=== PATIENT | female | born 1975 | race Caucasian/White ===

== ENCOUNTER 2020-04-23 13:51 | Outpatient (REF) | payer OTHER, SELFPAY | END 2020-04-23 13:52 | disposition home or self-care (01) | LOC: HO.LAB 13:51 | PROVIDERS: Visit Provider Internal Medicine | DX: Z20.828 Contact with and (suspected) exposure to other viral communicable diseases (principal) | CPT/HCPCS: 87635 ==

== ENCOUNTER 2020-04-28 10:03 | Emergency (ER) | payer OTHER, SELFPAY ==
--- NOTE | 2020-04-28 | XR_ITS ---
EXAMINATION: XR CHEST CLINICAL INFORMATION: Evaluate for pneumonia COMPARISON: None TECHNIQUE: Frontal view of the chest was obtained. FINDINGS: Normal symmetric lung volumes. Mild diffuse prominence of the bronchovascular markings. No pleural effusion. No pneumothorax. Cardiomediastinal silhouette and pulmonary vascularity are within normal limits. No acute osseous abnormalities. XR/XR chest 1V IMPRESSION: No focal consolidation. Mild diffuse prominence of the bronchovascular markings, possibly accentuated by portable technique. Recommend departmental radiographs.
[2020-04-28 10:24] VITALS: BP 114/80; PULSE 99; RESP 17; TEMP 37.1; O2SAT 94; BMI 31.5
--- NOTE | 2020-04-28 10:58 | ED_ITS ---
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 Negative COVID test 04/23. Partner is COVID +. MD elicited complaint: fever and cough Onset (ago): day(s) Consistency: intermittent Severity: mild Able to tolerate fluids by mouth: Yes Exacerbating factors: nothing Relieving factors: nothing Context: sick contacts Associated symptoms: fever, chills, myalgias, headache and cough Treatments prior to arrival: none Related Data Previous Rx's Medication Instructions Recorded acetaminophen 650 mg PO Q6H PRN #20 cap 04/28/20 ibuprofen 600 mg PO Q8H PRN #20 tab 04/28/20 Allergies Allergy/AdvReac Type Severity Reaction Status Date / Time No Known Allergies Allergy Verified 04/28/20 10:27 [No Known Allergies*] Review of Systems Constitutional: Constitutional: Reports no additional constitutional complaints, Reports body ache(s), Reports chills, Reports fatigue, Reports headache(s), Reports malaise and Denies weakness Eyes: Eyes: Reports no additional eye complaints and Denies change in vision ENT: Reports system reviewed and no additional complaints, except as documented, Denies dizziness, Denies otalgia, Reports headache(s), Denies nasal discharge, Denies neck pain and Denies sore throat Cardiovascular: Cardiovascular: Reports no additional cardiovascular complaints, Denies chest pain, Denies leg edema and Denies dyspnea Respiratory: Respiratory: Reports no additional respiratory complaints, Reports cough and Denies dyspnea Gastrointestinal: Gastrointestinal: Reports no additional gastrointestinal complaints, Denies abdominal pain, Denies diarrhea, Denies nausea and Denies vomiting Genitourinary: Genitourinary: Reports no additional female genitourinary complaints, Denies urinary incontinence, Denies urinary hesitancy and Denies urinary urgency Musculoskeletal: Musculoskeletal: Reports no additional musculoskeletal complaints, Denies back pain, Reports myalgias, Denies arthralgias, Denies joint swelling, Denies neck pain, Denies numbness and Denies tingling Integumentary/Breasts: Skin/Breast: Reports system reviewed and no additional complaints, except as docu and Denies rash Neurologic: Reports system reviewed and no additional complaints, except as documented, Denies Abnormal speech present, Denies dizziness, Reports headache(s), Denies numbness, Denies tingling and Denies weakness Endocrine: Endocrine: Reports fatigue PMF Past Medical History Attestation statement: The following information was validated with the patient. Source: obtained from family and nursing notes reviewed Social History Social History Alcohol intake: current Alcohol intake frequency: holidays/special occasions only Smoking Status: Current some day smoker Use of substances other than those prescribed or required for medical reasons: No Advance Directives: No Advance Directives Information Provided: No Physical Exam Vital Signs: Vital Signs: Vital Signs Temp Pulse Resp BP Pulse Ox 04/28/20 10:24 98.7 F 99 17 114/80 94 Body Mass Index 31.5 Const: General: cooperative, healthy appearing, comfortable and no acute distress Orientation/consciousness: patient oriented x3 Limitations: no limitations HENMT: Head: Yes normal to inspection Ears: hearing grossly normal bilaterally General nose exam: Normal external nose present Face and sinus: Yes normal facial exam Mouth: Normal oral and palatal mucosa present Throat: Yes posterior oropharynx normal Eyes: General: appearance normal, both eyes and all related structures Pupils: Equal, round and reactive pupils present Neck: Neck: Yes normal visual inspection, Yes full ROM, Yes no lymphadenopathy and Yes no meningeal signs Chest: Chest palpation & inspection: normal inspection of the chest Resp: Effort & Inspection: normal respiratory effort Auscultation: clear to auscultation bilaterally Cardio: Rate: regular rate Rhythm: regular rhythm Peripheral pulses: Peripheral pulses 2+ throughout GI: Inspection: Yes normal to inspection Palpation (GI): Soft to palpation and nontender Auscultation: normal bowel sounds Back/Spine/Pelvis: Thoracic/Lumbar Spine: thoracic and lumbar spine normal to inspection Skin: General skin exam: no rashes or lesions noted Neuro: General: patient oriented x3, no meningeal signs, no focal motor deficits and normal sensation to monofilament Cranial nerves: Yes Equal, round and reactive pupils present Cognition (Neuro): normal cognition Speech: No Abnormal speech present Gait exam (Neuro): Normal gait present Motor exam (neuro): 5/5 motor strength present throughout Extrem: General: Yes normal to inspection Course Course Course Narrative: Cough, subjective fevers, OSORIO, malaise x several days with COVID exposure but negative test herself. Will check CXR, repeat COVID testing. 1140-CXR negative. COVID testing pending. Well appearing, with stable vital signs. reviewed worrisome signs and symptoms and when to return to the emergency department. Comfortable discharge home. MDM - URI/Sore Throat Imaging Data Chest x-ray: Attestation: I personally reviewed and interpreted this imaging study as follows: Radiologist's impression: EXAMINATION: XR CHEST CLINICAL INFORMATION: Evaluate for pneumonia COMPARISON: None TECHNIQUE: Frontal view of the chest was obtained. FINDINGS: Normal symmetric lung volumes. Mild diffuse prominence of the bronchovascular markings. No pleural effusion. No pneumothorax. Cardiomediastinal silhouette and pulmonary vascularity are within normal limits. No acute osseous abnormalities. XR/XR chest 1V IMPRESSION: No focal consolidation. Mild diffuse prominence of the bronchovascular markings, possibly accentuated by portable technique. Recommend departmental radiographs. Discharge Plan Discharge Clinical Impression: Viral infection Patient Disposition: Home, Self-Care Instructions: Viral Syndrome (ED) Additional Instructions: We have tested you today for COVID 19. Test results take 1-2 days and we will call you with the results negative or positive. Take tylenol or motrin if able as needed for pain or fever. Stay well hydrated with fluids like water, gatorade and/or powerade. Wash hands at home. If living with others try to self isolate if possible. If unable wear a mask around others in your home and wash hands frequently. If COVID test is positive you will need to self isolate for a total of 10 days and be symptoms free for at least 24hrs. You may return to work sooner if testing is negative and all symptoms resolved >72 hours. You should return to the emergency department for severe shortness of breath, chest pain or fever which does not respond to both tylenol and motrin at home. Your chest x-ray today looks like there is no signs of pneumonia. Prescriptions: New acetaminophen 325 mg capsule 650 mg PO Q6H PRN (Reason: fever or pain) Qty: 20 RF: 0 ibuprofen 600 mg tablet 600 mg PO Q8H PRN (Reason: fever or pain) Qty: 20 RF: 0 Referrals: Po,Nolberto Boykin MD [Primary Care Provider] - 2 days Stand Alone Forms: Work/School Release Interventions: ED Discharge Assessment Last Done: 04/28/20 12:41 Discharge Date/Time: 04/28/20 12:20
== END 2020-04-28 12:20 | disposition home or self-care (01) ==
PROVIDERS: Nurse Practitioner Family; Emergency Provider Emergency Medicine; PCP Internal Medicine
DX: B34.9 Viral infection, unspecified (principal); R50.9 Fever, unspecified; R05 Cough; F17.200 Nicotine dependence, unspecified, uncomplicated; Z71.6 Tobacco abuse counseling; Z20.828 Contact with and (suspected) exposure to other viral communicable diseases
CPT/HCPCS: 71045; 99283; 99284; U0003

== ENCOUNTER 2020-05-22 15:37 | Outpatient (REF) | payer OTHER, SELFPAY | END 2020-05-22 15:38 | disposition home or self-care (01) | LOC: HO.LAB 15:37 | PROVIDERS: PCP Internal Medicine; Visit Provider Internal Medicine | DX: Z20.828 Contact with and (suspected) exposure to other viral communicable diseases (principal) | CPT/HCPCS: C9803; U0003 ==

== ENCOUNTER → 2020-07-04 10:24 | Outpatient (BNVA) | payer OTHER, SELFPAY | PROVIDERS: PCP Internal Medicine; Visit Provider Internal Medicine Gastroenterology | DX: Z76.89 Persons encountering health services in other specified circumstances (principal) ==

== ENCOUNTER 2020-09-11 11:01 | Outpatient (REF) | payer OTHER, SELFPAY ==
--- NOTE | ~2020-09-11 | MM_ITS ---
EXAMINATION: MM SCREENING DIGITAL BREAST TOMOSYNTHESIS, BILATERAL CLINICAL INFORMATION: Screening. Asymptomatic. The lifetime risk of breast cancer based on the Tyrer-Cuzick Model is 7%. COMPARISON: Mammography: 09/06/2019, 08/26/2017 TECHNIQUE: Digital breast tomosynthesis is performed in both the craniocaudal and mediolateral oblique views along with computer-aided detection (CAD). Synthesized 2D images are generated from the tomosynthesis. FINDINGS: There are scattered areas of fibroglandular density (ACR BI-RADS breast composition Category b). There are no significant masses, abnormal calcifications, or other abnormalities. Parenchymal pattern is similar to prior studies. Axillary nodes are stable. Skin contours are smooth. No significant changes. MM/MM tomosynthesis screening BI IMPRESSION: No mammographic evidence of malignancy. ASSESSMENT: BI-RADS 1: Negative RECOMMENDATION: Routine annual mammography screening. This patient's information was entered into a reminder system with a target due date for their next mammogram.
== END 2020-09-11 11:02 | disposition home or self-care (01) ==
LOC: HO.MAMMO 11:01
PROVIDERS: PCP Internal Medicine; Visit Provider Internal Medicine
DX: Z12.31 Encounter for screening mammogram for malignant neoplasm of breast (principal)
CPT/HCPCS: 77063; 77067

== ENCOUNTER → 2020-10-31 09:40 | Outpatient (BNVA) | payer OTHER, SELFPAY | PROVIDERS: PCP Internal Medicine; Referring Provider Internal Medicine; Visit Provider Internal Medicine Gastroenterology | DX: Z12.11 Encounter for screening for malignant neoplasm of colon (principal); R10.84 Generalized abdominal pain | CPT/HCPCS: 99212 ==

== ENCOUNTER → 2021-02-06 09:20 | Outpatient (BNVA) | payer OTHER, SELFPAY | PROVIDERS: PCP Internal Medicine; Visit Provider Internal Medicine Gastroenterology ==

== ENCOUNTER 2021-07-25 10:05 | Outpatient (REF) | payer OTHER, SELFPAY ==
[2021-07-25 10:52] LABS: Immature Retic Fraction 6.1 % (3.0-15.9); Retic HGB Equivalent 29.5 pg (30.0-35.0); Reticulocyte Percent 0.8 % (0.5-1.8); Reticulocytes Absolute 0.036 X10*6/uL (0.026-0.095)
[2021-07-25 11:24] LABS: C Reactive Protein 0.99 mg/dL (< or = 0.50); Cholesterol 129 mg/dL; HDL Cholesterol 29 mg/dL; Iron 42 mcg/dL (30-160); LDL Cholesterol Calculated 84 mg/dl; Lipase 40 U/L (8-78); Percent Iron Saturation 17 % (15-50); Total Iron Binding Capacity 245 mcg/dL (228-428); Triglycerides 81 mg/dL; Unsaturated Iron Binding 203 ug/dL
[2021-07-25 11:30] LABS: Erythrocyte Sedimentation Rate 83 MM/HR (0-20)
[2021-07-25 11:31] LABS: Appearance Urine CLEAR; Color Urine YELLOW; Glucose Urine UA NEG (NEG); Leukocyte Esterase Urine NEG (NEG); Nitrite Urine NEG (NEG); PH 5.5 (5.0-8.0); Specific Gravity - Urine >= 1.030 (1.005-1.025); Urine Blood 3+ (NEG); Urine Ketones NEG (NEG); Urine Protein 1+ MG/DL (NEG-TRACE)
[2021-07-25 11:37] LABS: Ferritin 150 ng/mL (10-250); Free T4 (Free Thyroxine) 0.91 ng/dL (0.71-1.85); Vitamin D 25-OH Total 18.5 ng/mL (>30)
[2021-07-25 11:38] LABS: Thyroid Stimulating Hormone 1.24 uIU/mL (0.32-4.0)
[2021-07-25 11:51] LABS: Folate 12.8 ng/mL (> or = 4.0); Vitamin B12 366 pg/mL (200-900)
[2021-07-25 11:53] LABS: Amorphous Sediment Urine TRACE /LPF; Mucus Urine 2+ /LPF; Squamous Epithelial Cell Urine 2+ /LPF; WBC Urine 0-2 /HPF (0-4)
[2021-08-01 10:40] LABS: Calprotectin, Fecal 524 mcg/g
== END 2021-07-25 10:06 | disposition home or self-care (01) ==
LOC: HO.LAB 10:05
PROVIDERS: Absent Provider Internal Medicine; PCP Internal Medicine; Visit Provider Internal Medicine Gastroenterology
DX: R10.84 Generalized abdominal pain (principal); E66.9 Obesity, unspecified; E78.00 Pure hypercholesterolemia, unspecified
CPT/HCPCS: 36415; 80061; 81001; 82306; 82607; 82728; 82746; 83540; 83690; 83993; 84439; 84443; 85045; 85652; 86140

== ENCOUNTER 2021-07-28 10:47 | Outpatient (REF) | payer OTHER, SELFPAY | END 2021-07-28 10:48 | disposition home or self-care (01) | LOC: HO.LNP 10:47 | PROVIDERS: Visit Provider Internal Medicine Gastroenterology | DX: Z13.89 Encounter for screening for other disorder (principal) ==

== ENCOUNTER 2021-07-28 11:31 | Emergency (ER) | payer OTHER, SELFPAY ==
[2021-07-28 11:50] VITALS: BP 158/87; PULSE 120; RESP 20; TEMP 36.9; O2SAT 100; BMI 28.7
[2021-07-28] MEDS: Acetaminophen 325 MG TABLET 650 MG PO (11:54)
--- NOTE | 2021-07-28 12:27 | ED_ITS ---
HPI - General Adult General Chief complaint: General Medical Stated complaint: hemorrhoids Time Seen by Provider: 07/28/21 12:19 Source: patient Mode of arrival: ambulatory Limitations: no limitations History of Present Illness HPI narrative: Patient presents to ED for pain for rectal pain. Patient states having external hemorrhoid that has been painful for the past 11 days. Patient denies any abdominal pain, nausea, vomiting, fever, chills, or any recent rectal trauma. Patient states stool was hard but then became softer. Related Data Home Medications Medication Instructions Recorded Confirmed omeprazole 10 mg capsule,delayed 10 mg PO DAILY 10/31/20 02/06/21 release Previous Rx's Medication Instructions Recorded dicyclomine 20 mg tablet 20 mg PO TID PRN 30 Days #60 tab 10/31/20 docusate sodium 100 mg capsule 100 mg PO BID 10 Days #20 cap 07/28/21 (Colace) lidocaine 2 %-hydrocortisone 2 See Rx Instructions .ROUTE 07/28/21 %-aloe vera rectal kit (Riri-Luis Felipe) .COMPLEX 7 Days #7 ea naproxen 500 mg tablet 500 mg PO BID PRN 10 Days #20 tab 07/28/21 oxycodone-acetaminophen 5 mg-325 1 tab PO TID PRN #9 tab 07/28/21 mg tablet (Percocet) sennosides 8.6 mg tablet (senna) 8.6 mg PO DAILY PRN 30 Days #30 tab 07/28/21 Allergies Allergy/AdvReac Type Severity Reaction Status Date / Time No Known Allergies Allergy Verified 10/31/20 09:43 [No Known Allergies*] Review of Systems Verdana 4l Review of Systems: Verdana 4d Rectal pain. Verdana 4d Hemorrhoids Verdana 4d Yes all other systems are reviewed and are negative [facility] Past Medical History Medical History (Updated 07/28/21 @ 13:28 by ROSIE Joseph) Duodenal ulcer GERD (gastroesophageal reflux disease) Menometrorrhagia Obesity (BMI 30-39.9) Seizure in childhood Surgical History Hx of section Hx of cholecystectomy (~2005) Hx of hysterectomy Family History Family History Father No problems noted. Mother No problems noted. Daughter No problems noted. Son No problems noted. Brother Substance abuse Social History Social History Household Members: Children Alcohol intake: current Alcohol intake frequency: holidays/special occasions only Advance Directives: No Advance Directives Information Provided: No Patient : No Current occupational status: employed Current occupation: [email or web address] Physical Exam Verdana 4l Vital Signs: Verdana 4d Verdana 4d Vital Signs: Verdana 4d Verdana 4Bd Last Vital Signs Verdana 4d Riveter Pneumatic New 4d Riveter Pneumatic New 4d Temp 98.5 F 07/28/21 11:50 Riveter Pneumatic New 4d Pulse 76 07/28/21 13:43 Riveter Pneumatic New 4d Resp 20 07/28/21 11:50 BP 158/87 H 07/28/21 11:50 Pulse Ox 97 07/28/21 13:43 BMI result Body Mass Index 28.7 Const: General: acute distress Orientation/consciousness: patient oriented x3 HENMT: Head: Yes normal to inspection, Yes No palpable skull fracture present, Yes normocephalic and Yes atraumatic Eyes: General: appearance normal, both eyes and all related structures Neck: Neck: Yes normal visual inspection, Yes full ROM, Yes no lymphadenopathy, Yes no meningeal signs, Yes trachea midline, Yes supple, No anterior neck swelling and No tender Chest: Chest palpation & inspection: normal inspection of the chest and normal palpation of entire chest wall Resp: Effort & Inspection: normal respiratory effort and able to speak in complete sentences Auscultation: clear to auscultation bilaterally Cardio: Jugular venous distension: no JVD Heart sounds: S1 normal heart sound present and S2 normal heart sound present GI: Inspection: Yes normal to inspection and No abdominal wall ecchymosis Palpation (GI): Soft to palpation, not firm, nontender, no guarding and not rigid Rectal Exam - Female: External hemorrhoid(s) present ([place] and healthy. Tender to palpation. Not thrombosed.) : General: No CVA tenderness and Yes no CVA tenderness Back/Spine/Pelvis: Back: no CVA tenderness, No CVA tenderness and No back tenderness Skin: General skin exam: no rashes or lesions noted and elasticity normal Neuro: General: patient oriented x3, gait normal and no meningeal signs Cranial nerves: Yes CN's II-XII intact bilaterally Extrem: General: Yes normal to inspection and Yes full ROM Psych: Appearance: grossly normal, well kempt and not disheveled Course Course Course Narrative: Presently no indication for EXCISION of hemorrhoid. WILL ORDER ORAL PAIN MEDICATION. PROCRIT COCKTAIL OF LIDOCAINE CREAM AND HYDROCORTISONE CREAM TO PUT ANY OF AREA FOR PAIN RELIEF. PATIENT TACHYCARDIC DUE TO PAIN Reevaluation(s) Reevaluation #1: PHARMACY HAS NOT YET BROUGHT UP STEROID CREAM. WILL SEND PATIENT HOME WITH PAIN MEDICATION AND STEROID CREAM WITH LIDOCAINE FOR PAIN RELIEF. PATIENT INFORMED TO FOLLOW-UP WITH GENERAL SURGEON. Time: 13:27 Medical Decision Making [facility] Narrative Medical decision making narrative: eXTERNAL HEMMORHOIDS Discharge Plan Discharge Clinical Impression: Hemorrhoids Patient Disposition: Home, Self-Care Instructions: Hemorrhoids (DC), Sitz Bath (DC) Additional Instructions: ACTUALMENTE NO HAY INDICACI?N PARA LA EXCISI?N DE HEMORROIDES. SER? DADO DE JEROME CON MEDICAMENTOS PARA EL DOLOR Y TAMBI?N CREMA RECTAL CON ESTEROIDES Y COMPONENTE INTENSIFICANTE. NECESITA SEGUIMIENTO CON CIRUJANO AMBULATORIO. REGRESE AL ED POR CUALQUIER [place] RECTAL PROFUSO, DOLOR INTRATABLE, COLORACI?N P?RPURA OSCURO DE LAS HEMORROIDES, DOLOR ABDOMINAL, N?USEAS, V?MITOS, FIEBRE O ESCALOFRIOS, O CUALQUIER OTRO S?NTOMA PREOCUPANTE. Prescriptions: New oxycodone-acetaminophen [Percocet] 5-325 mg tablet 1 tab PO TID PRN (Reason: pain) Qty: 9 0RF docusate sodium [Colace] 100 mg capsule 100 mg PO BID 10 Days Qty: 20 0RF Riri-Luis Felipe Kit 2-2 % kit See Rx Instructions .ROUTE .COMPLEX 7 Days Qty: 7 0RF Rx Instructions: clean area with WIPE; insert applicatorful of HYDROCORTISONE-LIDOCAINE CREAM rectally 2 times daily or as directed naproxen 500 mg tablet 500 mg PO BID PRN (Reason: pain) 10 Days Qty: 20 0RF No Action sennosides [senna] 8.6 mg tablet 8.6 mg PO DAILY PRN (Reason: constipation) 30 Days Qty: 30 3RF omeprazole 10 mg capsule,delayed release(DR/EC) 10 mg PO DAILY 0RF dicyclomine 20 mg tablet 20 mg PO TID PRN (Reason: abdominal pain) 30 Days Qty: 60 3RF Referrals: Benjamin Shelton MD [Physician] - 2 days (External hemorrhoid) Interventions: ED Discharge Assessment Last Done: 07/28/21 14:01 Discharge Date/Time: 07/28/21 14:01 Print Language: Telugu
[2021-07-28] MEDS: oxyCODONE HCl Immed Release 5 MG TABLET PO (12:43)
[2021-07-28] MEDS: Ibuprofen 800 MG TABLET PO (12:44)
[2021-07-28 13:43] VITALS: PULSE 76; O2SAT 97
== END 2021-07-28 14:01 | disposition home or self-care (01) ==
PROVIDERS: Emergency Provider Emergency Medicine Emergency Medical Services; PCP Internal Medicine
DX: K64.4 Residual hemorrhoidal skin tags (principal); R00.0 Tachycardia, unspecified
CPT/HCPCS: 99283; 99284

== ENCOUNTER → 2021-09-04 14:20 | Outpatient (BNVA) | payer OTHER, SELFPAY | PROVIDERS: PCP Internal Medicine; Visit Provider Surgery | DX: K64.4 Residual hemorrhoidal skin tags (principal); K64.8 Other hemorrhoids | CPT/HCPCS: 46600; 99202 ==

== ENCOUNTER 2021-09-13 10:19 | Outpatient (REF) | payer OTHER, SELFPAY ==
--- NOTE | ~2021-09-13 | MM_ITS ---
EXAMINATION: MM SCREENING DIGITAL BREAST TOMOSYNTHESIS, BILATERAL CLINICAL INFORMATION: Screening. Asymptomatic. The lifetime risk of breast cancer based on the Tyrer-Cuzick Model is 5.4%. COMPARISON: Mammography: September 11, 2020 and studies dating back to August 26, 2017 TECHNIQUE: Digital breast tomosynthesis is performed in both the craniocaudal and mediolateral oblique views along with computer-aided detection (CAD). Synthesized 2D images are generated from the tomosynthesis. FINDINGS: There are scattered areas of fibroglandular density (ACR BI-RADS breast composition Category b). There are no significant masses, abnormal calcifications, or other abnormalities. MM/MM tomosynthesis screening BI IMPRESSION: There are no significant changes from prior study. ASSESSMENT: BI-RADS 1: Negative RECOMMENDATION: Routine annual mammography screening. This patient's information was entered into a reminder system with a target due date for their next mammogram.
== END 2021-09-13 10:20 | disposition home or self-care (01) ==
LOC: HO.MAMMO 10:19
PROVIDERS: PCP Internal Medicine; Visit Provider Internal Medicine
DX: Z12.31 Encounter for screening mammogram for malignant neoplasm of breast (principal)
CPT/HCPCS: 77063; 77067

== ENCOUNTER 2021-09-27 11:57 | Emergency (ER) | payer OTHER, SELFPAY ==
--- NOTE | ~2021-09-27 | CT_ITS ---
EXAMINATION: CT CHEST, ABDOMEN PELVIS WITH CONTRAST. CLINICAL INFORMATION: Pain left posterior rib cage COMPARISON: Chest x-ray 04/28/2020. CT abdomen pelvis 07/24/2019. TECHNIQUE: 5 mm thin axial and reformatted 3 mm thin sagittal coronal images of chest, abdomen pelvis were obtained following 85 mL Omnipaque 350. DLP 872. FINDINGS: Chest: LUNGS: The lungs are well-expanded with multiple nodules visualized throughout both lungs measuring in the range of 2-5 mm the largest in the right upper lobe anterior segment axial image 261/12. No acute consolidation or mass seen. Mediastinum: The thyroid lobes are asymmetrical with the right slightly larger than left. The central trachea and the bronchi widely patent. Heart size and the great vessels are normal caliber. There are small shotty lymph nodes seen in the para-aortic and middle mediastinum. There is a prominent thymic soft tissue in the anterior mediastinum is no pericardial effusion seen. Pleura: There is no calcified pleura or pleural effusion. Axilla: There is small shotty bilateral axillary lymph nodes. The chest wall is unremarkable. Abdomen and pelvis: Liver, ducts and gallbladder: The liver is normal size, density and shape. No focal lesion or intrahepatic ductal dilatation seen. Gallbladder has been surgically removed Spleen: Unremarkable. Pancreas: Unremarkable. Adrenal glands: Unremarkable. Both kidneys: Both kidney nephrograms are symmetrical and unremarkable. No radiopaque renal calculi or hydronephrosis seen. No perinephric stranding. Lymphovascular structures: Unremarkable. GI tract: There is scattered stool and gas seen in colon without any significant distention. The small bowel loops are normal caliber. Appendix is visualized and appears unremarkable. Abdominal wall: Unremarkable. Pelvis: The bladder is unremarkable. There is no free fluid. No abnormal pelvic lymph nodes. Osseous structures: Visualized thoracic, lumbosacral spine is unremarkable. No fracture involving the pelvic bones. Bilateral ribs are unremarkable. CT/CT abdomen pelvis w con IMPRESSION: Multiple extensive pulmonary nodules in the range of 2 to 5 mm. This could be seen following biliary TB, fungal or pneumoconiosis. Similar findings can also seen with metastatic disease. These findings were partially visualized in the lung bases on previous CT abdomen exam 07/24/2019. Small shotty lymph nodes in the para-aortic and mediastinal regions. Residual thymus tissue seen. Unremarkable CT abdomen pelvis exam.
[2021-09-27 12:11] VITALS: BP 116/72; PULSE 82; RESP 18; TEMP 36.6; O2SAT 96; BMI 30.4
[2021-09-27] MEDS: 0.9 % Sodium Chloride 1,000 ML 999 ML IVCONT (12:53)
[2021-09-27] MEDS: Ketorolac Tromethamine 30 MG/ML VIAL IVPUSH (12:53)
[2021-09-27 12:58] LABS: Basophils Percent Auto 0.4 % (0-2); Eosinophils Percent Auto 0.7 % (0-4); Hematocrit 36.3 % (37.0-47.0); Hemoglobin 11.6 g/dl (12.0-16.0); Imm Gran Abs Auto 0.01 X10*3/uL (0.00-0.03); Imm Gran Pct Auto 0.2 % (0.0-0.4); Lymphocytes Absolute Auto 2.9 X10*3/uL (1.2-4.9); Lymphocytes Percent Auto 52.3 % (20-40); MANUAL DIFF FLAG SCAN; Mean Corpuscular Hemoglobin 27.7 pg (27.0-33.0); Mean Corpuscular Volume 86.6 fL (80.0-98.0); Monocytes Absolute Auto 0.9 X10*3/uL (0.1-1.2); Monocytes Percent Auto 15.6 % (2-11); Neutrophils Absolute Auto 1.7 x10*3/uL (2.0-8.3); Neutrophils Percent Auto 30.8 % (45-73); PLT CLUMP 1; Red Blood Count 4.19 X10*6/uL (4.20-5.50); SCAN SMEAR FLAG 1
[2021-09-27 13:02] LABS: INTERNATIONAL NORM RATIO 1.1 (0.9-1.1); Prothrombin Time 12.4 SEC (9.9-13.0)
[2021-09-27 13:06] LABS: Color Urine YELLOW; Glucose Urine UA NEG (NEG); Leukocyte Esterase Urine NEG (NEG); Nitrite Urine NEG (NEG); PH 6.5 (5.0-8.0); UACC Culture Trigger NO; Urine Blood 2+ (NEG); Urine Ketones NEG (NEG); Urine Protein NEG (NEG-TRACE)
[2021-09-27 13:09] LABS: UPreg QC Valid YES; Urine Pregnancy NEGATIVE (NEGATIVE)
[2021-09-27 13:10] LABS: Appearance Urine HAZY
[2021-09-27 13:15] LABS: Alanine Aminotransferase 20 U/L (0-31); Albumin Level 3.4 g/dL (3.5-5.0); Alkaline Phosphatase 67 U/L (39-117); Anion Gap 7 (12-20); Aspartate Amino Transferase 29 U/L (5-31); Bilirubin Total 0.4 mg/dL (0.0-1.0); Blood Urea Nitrogen 9 mg/dL (9-16); Calcium 8.8 mg/dL (8.4-10.2); Carbon Dioxide 27 mmol/L (22-29); Chloride 106 mmol/L (96-108); Creatinine Clr Calc Pharmacy 96.5; Estimated Glomerular Filt Rate > 60; Glucose Random 82 mg/dL (60-115); Magnesium 2.2 mg/dL (1.6-2.6); Potassium 4.3 mmol/L (3.3-5.1); Sodium 136 mmol/L (135-145); Total Protein 9.5 g/dL (6.5-8.0)
[2021-09-27 13:21] LABS: White Blood Count 5.5 X10*3/uL (4.8-10.8)
[2021-09-27 13:22] LABS: SLIDE REVIEW VERIFIED
[2021-09-27 13:30] LABS: Bacteria Urine TRACE /LPF; Mucus Urine 1+ /LPF; Squamous Epithelial Cell Urine 1+ /LPF; WBC Urine 0 /HPF (0-4)
--- NOTE | 2021-09-27 13:58 | ED_ITS ---
HPI - General Adult General Chief complaint: Back Pain/Injury Stated complaint: l side pain Time Seen by Provider: 09/27/21 12:06 Source: patient Mode of arrival: ambulatory Limitations: language barrier (Bengali Speaking ) History of Present Illness HPI narrative: 45-year-old female with a past medical history of GERD, duodenal ulcer, obesity and a seizure in childhood who is currently being followed by Rheumatology and being worked up for possible lupus although not diagnosed yet presenting to the ED with complaints of left-sided rib cage/flank/back pain that started around 02:00 this morning after she urinated in the bathroom. She reports she has not had this pain in the past. She reports it is worse with taking a deep breath along with palpation and movement. She denies any recent falls or trauma. She denies any fevers, chills, dizziness, headaches, neck pain/stiffness, trouble swallowing or breathing, dyspnea on exertion, orthopnea, palpitations, chest pain, paresthesias, nausea/vomiting/diarrhea constipation, black or bloody stools, recent travel or sick contacts, history of PVD disease, recent immobilization or surgery or procedure, recent illness, any estrogen usage, history of DVT or PE, rashes or any other symptoms complaints or concerns at this time. MD complaint: Left rib cage/back/flank pain Onset (ago): hour(s) (Prior to arrival around 02:00) Location: chest, back and abdomen (Left flank) Radiation: non-radiation Severity: moderate Quality: aching Pain Consistency: constant Relieving factors: none Exacerbating factors: movement (And palpation of the rib cage/back/flank area) and other (Deep inspiration) Associated symptoms: denies other symptoms Treatments prior to arrival: none Related Data Home Medications Medication Instructions Recorded Confirmed omeprazole 10 mg capsule,delayed 10 mg PO DAILY 10/31/20 09/04/21 release Previous Rx's Medication Instructions Recorded dicyclomine 20 mg tablet 20 mg PO TID PRN 30 Days #60 tab 10/31/20 lidocaine 2 %-hydrocortisone 2 See Rx Instructions .ROUTE 07/28/21 %-aloe vera rectal kit (Riri-Luis Felipe) .COMPLEX 7 Days #7 ea naproxen 500 mg tablet 500 mg PO BID PRN 10 Days #20 tab 07/28/21 sennosides 8.6 mg tablet (senna) 8.6 mg PO DAILY PRN 30 Days #30 tab 07/28/21 lidocaine 3 %-hydrocortisone 2.5 % 1 appl [place] BID 28 Days #7 g 08/05/21 (7 gram) rectal gel metronidazole 1 % topical gel 1 appl TOPICAL BEDTIME #60 g 09/01/21 (Metrogel) polyethylene glycol 3350 17 gram 17 g PO DAILY 90 Days #100 ea 09/01/21 oral powder packet (Miralax) azithromycin 250 mg tablet See Rx Instructions .ROUTE 09/27/21 .COMPLEX #6 tab cephalexin 500 mg capsule 500 mg PO Q6H 10 Days #40 cap 09/27/21 cyclobenzaprine 10 mg tablet 10 mg PO Q8H PRN #14 tab 09/27/21 naproxen 500 mg tablet 500 mg PO BID PRN #10 tab 09/27/21 Allergies Allergy/AdvReac Type Severity Reaction Status Date / Time No Known Allergies Allergy Verified 09/04/21 14:26 [No Known Allergies*] Review of Systems Review of Systems: Constitutional : No trauma, No Weight loss, No Fever, No Chills, ENT/Mouth : No Hearing loss, No Ear Pain, No Nasal Congestion, No Sinus Pain, No Hoarseness, No sore throat, No Rhinorrhea, No Swallowing Difficulty Cardiovascular : No Chest Pain, No SOB Respiratory : No Cough, No Dyspnea Gastrointestinal : No Nausea, No Vomiting, No Diarrhea, No abdominal Pain, No Hematochezia, No Melena Genitourinary : + left flank pain, No Dysuria, No Urinary Frequency, No Hematuria, No Urinary or Bowel Incontinence/retention Musculoskeletal : + rib cage left sided/Back pain, No neck pain, No joint stiffness, No joint swelling Skin : No Skin Lesions, No rash or signs of infection Neuro : No Weakness, No radiation, No Numbness, No Paresthesias, No headache, no loss of bowel or bladder incontinence, no saddle anesthesia, Focal weakness, No radiation Denies history of IV drug usage. Yes all other systems are reviewed and are negative [facility] Past Medical History Attestation statement: The following information was validated with the patient. Medical History Duodenal ulcer GERD (gastroesophageal reflux disease) Hemorrhoids with complication Menometrorrhagia Obesity (BMI 30-39.9) Seizure in childhood Surgical History Hx of section Hx of cholecystectomy (~2005) Hx of hysterectomy Family History Family History Father No problems noted. Mother No problems noted. Daughter No problems noted. Son No problems noted. Brother Substance abuse Social History Social History Household Members: Children Housing: Apartment Alcohol intake: never Patient Tobacco Use Status: Never used Tobacco e-Cigarette/Vaping Use: Never Used Second Hand Smoke Exposure: No Advance Directives: No Advance Directives Information Provided: No Patient : No Current occupational status: employed Current occupation: [employer] Physical Exam ED Vital Signs: Vital Signs - 24 hr 09/27/21 12:11 09/27/21 15:02 Temperature 97.9 F Pulse Rate 82 88 Respiratory Rate 18 16 Blood Pressure 116/72 115/75 Pulse Oximetry 96 96 BMI result Body Mass Index 30.4 Vital signs have been reviewed and all within normal limits Appearance: Alert. Oriented X3. No acute distress. Head: Normal external exam. Normocephalic. Atraumatic. Eyes: PERRLA. EOMI. Conjunctiva and sclera normal. Eyelids normal. ENT: Pharynx normal. Uvula midline. Moist mucous membranes. Normal voice. No trismus noted. No drooling noted. No muffled voice noted. Neck: Normal inspection. Neck supple. FROM. No adenopathy. Thyroid Normal. No tracheal deviation noted. No crepitus is noted. No meningeal signs. No neck mass noted. No signs of trauma noted. CVS: Normal heart rate and rhythm. Heart sound normal. Pulses normal throughout. No murmurs/rales/gallops. Respiratory: No respiratory distress. Painless inspiration. Breath sounds normal. No wheezes/rales/rhonchi noted. Chest moderate tenderness palpation to the left lateral ribcage/left thoracic paraspinous musculature. No crepitus is noted. No signs of trauma noted. No accessory muscle usage noted or decreased air movement noted. No signs of trauma. No rashes noted. Abdomen: Soft and nontender. Nondistended. No guarding. No rigidity. Bowel sounds normal in all 4 quadrants. No distention noted. No organomegaly noted. No visible injury noted. No rebound tenderness. Negative Rovsing sign. Negative obturator's sign. Negative psoas sign. Negative Bergeron sign. Back: + left sided CVA tenderness. No Right CVAT. Full range of motion noted. Nontender. No signs of trauma. Patient neuro intact bilaterally and distally on all 4 extremities. Patient's reflexes intact bilaterally and distally on all 4 extremities. No rashes/lesion/induration/fluctuance or signs of infection noted. Skin: Skin warm and dry. Normal skin color. Normal skin turgor. No rashes/lesions/lacerations noted. Extremities: No lower extremity edema. No calf tenderness is noted. Extremities exhibit normal range of motion and nontender. Neuro: Oriented X 3. No motor deficit. No sensory deficit. Reflexes normal. Normal steady gait. No focal neuro deficits noted. CN's II-XII intact bilaterally? Vascular: + radial pulses/+ 2 distal pedal pulses/+2 dorsalis pedis b/l. Normal cap refill. No cyanosis noted to upper extremity nails and lower extremity toes nails. Course Course Course Narrative: 12:30pm - 45-year-old female with a past medical history of GERD, duodenal ulcer, obesity and a seizure in childhood who is currently being followed by Rheumatology and being worked up for possible lupus although not diagnosed yet presenting to the ED with complaints of left-sided rib cage/flank/back pain that started around 02:00 this morning after she urinated in the bathroom. She reports she has not had this pain in the past. She reports it is worse with taking a deep breath along with palpation and movement. Plan: Obtain labs, UA, UHCG, CT scan abdomen pelvis IV contrast, CT scan of ch est with contrast. Provide 30 mg of IV Toradol a L of IV fluids and re- evaluate. Reevaluation(s) Reevaluation #1: - LABS REVIEWED AND PATIENT MILD ANEMIA. ANION GAP 7. TOTAL PROTEIN 9.5. ALBUMIN 3.5. OTHERWISE ALL OTHER LABS ARE WITHIN NORMAL LIMITS. PATIENT HAS BLOOD IN HER URINE OTHERWISE NO EVIDENCE OF UTI. UHCG NEGATIVE FOR . - CT scan abdomen pelvis with IV contrast and CT scan of chest revealed multiple extensive pulmonary nodules in the range of 2-5 mm. They report that this could be biliary TB versus fungal versus pneumoconiosis versus metastatic disease. - we attempted to order a TB spot although they only right Wednesday through Wednesday before 5 therefore if we obtain specimen they reported that it will not be valid for Wednesday as she would have to be drawn Wednesday through Wednesday. - although I went into the re-evaluate the patient and she is afebrile she denies any coughing or any URI symptoms her oxygen level is within normal limits. She does not have an elevated white blood cell count. She has not been around any homeless population and she has not recently been homeless or in a correction. She has never been in nursing home and she has not been around anyone who has been in nursing home. She denies any recent travel and she is not from out of the country. Therefore TB is less on the differential I also discussed this with Dr. Dipti Mario she recommended checking an HIV and calling pulmonary. Therefore I discussed this case with Dr. Davenport the nutritional services cook he reported that most likely this is not tuberculosis as again she does not have an elevated white blood cell count there are no risk factors and she is afebrile and she denies any cough or any other URI symptoms. He reports that it could possibly be something else therefore we are recommending the patient to be admitted for furt her evaluation treatment although patient is requesting to be discharged therefore explained to her that I will be discharging her against medical advice because we advised her to be admitted for further evaluation treatment possibly see Oncology and Hematology for possible sarcoidosis due to she is currently being worked up for lupus and that would be the most likely diagnosis although patient reports that she does not want to be here any longer and she would rather follow-up as an outpatient basis. I explained to her that she should follow-up as soon as possible and to return if any new or worsening symptoms. Patient understands agrees with this plan. Time: 16:19 Medical Decision Making Medical Records Medical records reviewed: Yes I reviewed the patient's medical records. Lab Data Lab results reviewed: Yes I reviewed the patient's lab results. Result diagrams: 09/27/21 12:48 09/27/21 12:48 Labs: Lab Results 09/27/21 09/27/21 09/27/21 Range/Units 12:48 12:48 12:48 WBC 5.5 (4.8-10.8) X10*3/uL RBC 4.19 L (4.20-5.50) X10*6/uL Hgb 11.6 L (12.0-16.0) g/dl Hct 36.3 L (37.0-47.0) % MCV 86.6 (80.0-98.0) fL MCH 27.7 (27.0-33.0) pg MCHC 32.0 (31.0-35.0) g/dl RDW 14.0 (11.0-16.0) % Plt Count TNP MPV Not Reportable Immature Gran % (Auto) 0.2 (0.0-0.4) % Neut % (Auto) 30.8 L (45-73) % Lymph % (Auto) 52.3 H (20-40) % [place] % (Auto) 15.6 H (2-11) % Eos % (Auto) 0.7 (0-4) % Baso % (Auto) 0.4 (0-2) % Lymph # (Auto) 2.9 (1.2-4.9) X10*3/uL [place] # (Auto) 0.9 (0.1-1.2) X10*3/uL Eos # (Auto) 0.0 (0.0-0.4) X10*3/uL Baso # (Auto) 0.0 (0.0-0.2) X10*3/uL Abs Immat Gran (auto) 0.01 (0.00-0.03) X10*3/uL Absolute Neuts (auto) 1.7 L (2.0-8.3) x10*3/uL Absolute Nucleated RBC 0.000 (0.0-0.012) X10*3/uL Nucleated RBC % (auto) 0.0 (0.0-0.2) /100WBC Smear Tech's Comments VERIFIED Hold Purple Top PT 12.4 (9.9-13.0) SEC INR 1.1 (0.9-1.1) Sodium 136 (135-145) mmol/L Potassium 4.3 (3.3-5.1) mmol/L Chloride 106 (96-108) mmol/L Carbon Dioxide 27 (22-29) mmol/L Anion Gap 7 L (12-20) BUN 9 (9-16) mg/dL Creatinine 0.68 (0.5-1.4) mg/dL Estim Creat Clear Calc 96.5 Estimated GFR > 60 Random Glucose 82 (60-115) mg/dL Calcium 8.8 (8.4-10.2) mg/dL Magnesium 2.2 (1.6-2.6) mg/dL Total Bilirubin 0.4 (0.0-1.0) mg/dL AST 29 (5-31) U/L ALT 20 (0-31) U/L Alkaline Phosphatase 67 (39-117) U/L Total Protein 9.5 H (6.5-8.0) g/dL Albumin 3.4 L (3.5-5.0) g/dL Lipase 32 (8-78) U/L Urine Color Urine Appearance Urine pH (5.0-8.0) Ur Specific [place] (1.005-1.025) Urine Protein (NEG-TRACE) MG/DL Urine Glucose (UA) (NEG) MG/DL Urine Ketones (NEG) MG/DL Urine Blood (NEG) Urine Nitrite (NEG) Ur Leukocyte Esterase (NEG) Urine RBC (0) /HPF Urine WBC (0-4) /HPF Ur Squamous Epith Cells /LPF Urine Bacteria /LPF Urine Mucus /LPF Urine Test (NEGATIVE) 09/27/21 09/27/21 09/27/21 Range/Units 12:48 12:59 12:59 WBC (4.8-10.8) X10*3/uL RBC (4.20-5.50) X10*6/uL Hgb (12.0-16.0) g/dl Hct (37.0-47.0) % MCV (80.0-98.0) fL MCH (27.0-33.0) pg MCHC (31.0-35.0) g/dl RDW (11.0-16.0) % Plt Count MPV Immature Gran % (Auto) (0.0-0.4) % Neut % (Auto) (45-73) % Lymph % (Auto) (20-40) % Fergus % (Auto) (2-11) % Eos % (Auto) (0-4) % Baso % (Auto) (0-2) % Lymph # (Auto) (1.2-4.9) X10*3/uL [place] # (Auto) (0.1-1.2) X10*3/uL Eos # (Auto) (0.0-0.4) X10*3/uL Baso # (Auto) (0.0-0.2) X10*3/uL Abs Immat Gran (auto) (0.00-0.03) X10*3/uL Absolute Neuts (auto) (2.0-8.3) x10*3/uL Absolute Nucleated RBC (0.0-0.012) X10*3/uL Nucleated RBC % (auto) (0.0-0.2) /100WBC Smear Tech's Comments Hold Purple Top SEE NOTE PT (9.9-13.0) SEC INR (0.9-1.1) Sodium (135-145) mmol/L Potassium (3.3-5.1) mmol/L Chloride (96-108) mmol/L Carbon Dioxide (22-29) mmol/L Anion Gap (12-20) BUN (9-16) mg/dL Creatinine (0.5-1.4) mg/dL Estim Creat Clear Calc Estimated GFR Random Glucose (60-115) mg/dL Calcium (8.4-10.2) mg/dL Magnesium (1.6-2.6) mg/dL Total Bilirubin (0.0-1.0) mg/dL AST (5-31) U/L ALT (0-31) U/L Alkaline Phosphatase (39-117) U/L Total Protein (6.5-8.0) g/dL Albumin (3.5-5.0) g/dL Lipase (8-78) U/L Urine Color YELLOW Urine Appearance HAZY Urine pH 6.5 (5.0-8.0) Ur Specific [place] 1.020 (1.005-1.025) Urine Protein NEG (NEG-TRACE) MG/DL Urine Glucose (UA) NEG (NEG) MG/DL Urine Ketones NEG (NEG) MG/DL Urine Blood 2+ H (NEG) Urine Nitrite NEG (NEG) Ur Leukocyte Esterase NEG (NEG) Urine RBC 5-9 H (0) /HPF Urine WBC 0 (0-4) /HPF Ur Squamous Epith Cells 1+ /LPF Urine Bacteria TRACE /LPF Urine Mucus 1+ /LPF Urine Test NEGATIVE (NEGATIVE) Imaging Data CT scan of chest and abd/pelvis c IV contrast: Attestation: I personally reviewed and interpreted this imaging study as follows: Radiologist's impression: FINDINGS: Chest: LUNGS: The lungs are well-expanded with multiple nodules visualized throughout both lungs measuring in the range of 2-5 mm the largest in the right upper lobe anterior segment axial image 261/12. No acute consolidation or mass seen. Mediastinum: The thyroid lobes are asymmetrical with the right slightly larger than left. The central trachea and the bronchi widely patent. Heart size and the great vessels are normal caliber. There are small shotty lymph nodes seen in the para-aortic and middle mediastinum. There is a prominent thymic soft tissue in the anterior mediastinum is no pericardial effusion seen. Pleura: There is no calcified pleura or pleural effusion. Axilla: There is small shotty bilateral axillary lymph nodes. The chest wall is unremarkable. Abdomen and pelvis: Liver, ducts and gallbladder: The liver is normal size, density and shape. No focal lesion or intrahepatic ductal dilatation seen. Gallbladder has been surgically removed Spleen: Unremarkable. Pancreas: Unremarkable. Adrenal glands: Unremarkable. Both kidneys: Both kidney nephrograms are symmetrical and unremarkable. No radiopaque renal calculi or hydronephrosis seen. No perinephric stranding. Lymphovascular structures: Unremarkable. GI tract: There is scattered stool and gas seen in colon without any significant distention. The small bowel loops are normal caliber. Appendix is visualized and appears unremarkable. Abdominal wall: Unremarkable. Pelvis: The bladder is unremarkable. There is no free fluid. No abnormal pelvic lymph nodes. Osseous structures: Visualized thoracic, lumbosacral spine is unremarkable. No fracture involving the pelvic bones. Bilateral ribs are unremarkable. CT/CT chest w con IMPRESSION: Multiple extensive pulmonary nodules in the range of 2 to 5 mm. This could be seen following biliary TB, fungal or pneumoconiosis. Similar findings can also seen with metastatic disease. These findings were partially visualized in the lung bases on previous CT abdomen exam 07/24/2019. ? Small shotty lymph nodes in the para-aortic and mediastinal regions. ? Residual thymus tissue seen. ? Unremarkable CT abdomen pelvis exam. Critical Care Time Critical Care Time Critical Care Time: Yes Total Critical Care Time: 60 Attestation: I personally attest to this time spent taking care of the patient Discharge Plan Discharge Clinical Impression: Abnormal chest CT, Left against medical advice Patient Disposition: Left Against Medical Advice Instructions: Tuberculosis (DC), Against Medical Advice (ED) Prescriptions: New cyclobenzaprine 10 mg tablet 10 mg PO Q8H PRN (Reason: Muscle spasm) Qty: 14 0RF azithromycin 250 mg tablet See Rx Instructions .ROUTE .COMPLEX Qty: 6 0RF Rx Instructions: take 500 mg today (day 1), then 250 mg for 4 days (days 2-5) cephalexin 500 mg capsule 500 mg PO Q6H 10 Days Qty: 40 0RF naproxen 500 mg tablet 500 mg PO BID PRN (Reason: pain) Qty: 10 0RF No Action sennosides [senna] 8.6 mg tablet 8.6 mg PO DAILY PRN (Reason: constipation) 30 Days Qty: 30 3RF lidocaine HCl-hydrocortison ac 3 %-2.5 % (7 gram) gel 1 appl [place] BID 28 Days Qty: 7 1RF Riri-Luis Felipe Kit 2-2 % kit See Rx Instructions .ROUTE .COMPLEX 7 Days Qty: 7 0RF Rx Instructions: clean area with WIPE; insert applicatorful of HYDROCORTISONE-LIDOCAINE CREAM rectally 2 times daily or as directed naproxen 500 mg tablet 500 mg PO BID PRN (Reason: pain) 10 Days Qty: 20 0RF polyethylene glycol 3350 [Miralax] 17 gram powder in packet 17 g PO DAILY 90 Days Qty: 100 3RF metronidazole [Metrogel] 1 % gel 1 appl topical BEDTIME Qty: 60 1RF omeprazole 10 mg capsule,delayed release(DR/EC) 10 mg PO DAILY 0RF dicyclomine 20 mg tablet 20 mg PO TID PRN (Reason: abdominal pain) 30 Days Qty: 60 3RF Referrals: Faith Davenport MD [Physician] - 2 days Yasmine Harden MD [Physician] - 2 days Yu North MD [Physician] - 2 days Ayala Bowman MD [Physician] - 2 days Po,Nolberto Boykin MD [Primary Care Provider] - 2 days Stand Alone Forms: Work/School Release Interventions: ED Discharge Assessment Last Done: 09/27/21 16:13 Discharge Date/Time: 09/27/21 16:15 Print Language: Bengali
[2021-09-27] MEDS: iohexoL 350 MG/ML 100 ML INFUS..BTL 85 ML IV (14:00)
[2021-09-27] MEDS: iohexoL 350 MG/ML 100 ML INFUS..BTL IV (14:11)
[2021-09-27 14:16] LABS: Lipase 32 U/L (8-78)
[2021-09-27 15:02] VITALS: BP 115/75; PULSE 88; RESP 16; O2SAT 96
[2021-09-27] MEDS: Cyclobenzaprine HCl 10 MG TABLET PO (16:02)
== END 2021-09-27 16:15 | disposition left against medical advice (07) ==
PROVIDERS: Physician Assistant Medical; Emergency Provider Emergency Medicine; PCP Internal Medicine
DX: R93.5 Abnormal findings on diagnostic imaging of other abdominal regions, including retroperitoneum (principal); R91.8 Other nonspecific abnormal finding of lung field
CPT/HCPCS: 36415; 71260; 74177; 80053; 81001; 81025; 83690; 83735; 85025; 85610; 96361; 96365; 96375; 99283; 99291; J1885; Q9967

== ENCOUNTER → 2021-10-08 14:43 | Outpatient (BNVA) | payer OTHER, SELFPAY | PROVIDERS: PCP Internal Medicine; Visit Provider Internal Medicine | DX: R91.8 Other nonspecific abnormal finding of lung field (principal) | CPT/HCPCS: 99202 ==

== ENCOUNTER → 2021-10-16 12:34 | Outpatient (BNVA) | payer OTHER, SELFPAY | PROVIDERS: PCP Internal Medicine; Visit Provider Internal Medicine Gastroenterology | DX: Z12.11 Encounter for screening for malignant neoplasm of colon (principal); K21.9 Gastro-esophageal reflux disease without esophagitis; K65.4 Sclerosing mesenteritis; K59.09 Other constipation; K64.8 Other hemorrhoids | CPT/HCPCS: 99212 ==

== ENCOUNTER → 2021-11-10 15:10 | Outpatient (BNVA) | payer OTHER, SELFPAY | PROVIDERS: PCP Internal Medicine; Visit Provider Internal Medicine Pulmonary Disease | DX: R93.89 Abnormal findings on diagnostic imaging of other specified body structures (principal); R91.8 Other nonspecific abnormal finding of lung field | CPT/HCPCS: 99202 ==

== ENCOUNTER 2021-12-15 12:43 | Outpatient (REF) | payer OTHER, SELFPAY ==
--- NOTE | 2021-12-15 14:03 | PFT_ITS ---
Forced vital capacity is slightly decreased at 77%, FEV1 82%. FEV1/FVC ratio is 86. [id number] 87%, and MVV 75%. Post bronchodilator therapy, there is no change. Total lung capacity 72% and residual volume 53%. Diffusion capacity 62% CONCLUSION: These findings indicate mild restrictive pulmonary disorder. No evidence of obstructive airway disorder. MD ABRAM Cotton/YESSYL / [id number]
== END 2021-12-15 12:44 | disposition home or self-care (01) ==
LOC: HO.RESP 12:43
PROVIDERS: PCP Internal Medicine; Visit Provider Internal Medicine Pulmonary Disease
DX: R91.8 Other nonspecific abnormal finding of lung field (principal)
CPT/HCPCS: 94060; 94727; 94729

== ENCOUNTER → 2021-12-22 13:40 | Outpatient (BNVA) | payer OTHER, SELFPAY | PROVIDERS: PCP Internal Medicine; Visit Provider Internal Medicine Pulmonary Disease | DX: J84.9 Interstitial pulmonary disease, unspecified (principal); R93.89 Abnormal findings on diagnostic imaging of other specified body structures; R91.8 Other nonspecific abnormal finding of lung field | CPT/HCPCS: 99212 ==

== ENCOUNTER 2022-04-07 15:55 | Outpatient (REF) | payer OTHER, SELFPAY ==
[2022-04-07 17:21] LABS: Basophils Percent Auto 0.5 % (0-2); Hematocrit 33.6 % (37.0-47.0); Hemoglobin 10.8 g/dl (12.0-16.0); Imm Gran Abs Auto 0.02 X10*3/uL (0.00-0.03); Imm Gran Pct Auto 0.3 % (0.0-0.4); MANUAL DIFF FLAG SCAN; Mean Corpuscular HGB Conc 32.1 g/dl (31.0-35.0); Mean Corpuscular Hemoglobin 27.9 pg (27.0-33.0); Mean Corpuscular Volume 86.8 fL (80.0-98.0); PLT CLUMP 1; Red Blood Count 3.87 X10*6/uL (4.20-5.50); SCAN SMEAR FLAG 1
[2022-04-07 17:22] LABS: Eosinophils Absolute Auto 0.1 X10*3/uL (0.0-0.4); Eosinophils Percent Auto 0.9 % (0-4); Lymphocytes Percent Auto 51.3 % (20-40); Monocytes Absolute Auto 0.9 X10*3/uL (0.1-1.2); Monocytes Percent Auto 11.6 % (2-11); Neutrophils Absolute Auto 2.8 x10*3/uL (2.0-8.3); Neutrophils Percent Auto 35.4 % (45-73); Red Cell Distribution Width 13.7 % (11.0-16.0)
[2022-04-07 17:34] LABS: C Reactive Protein 0.53 mg/dL (< or = 0.50)
[2022-04-07 17:41] LABS: White Blood Count 7.9 X10*3/uL (4.8-10.8)
[2022-04-07 17:42] LABS: SLIDE REVIEW VERIFIED
[2022-04-07 17:57] LABS: Ferritin 123 ng/mL (10-250)
== END 2022-04-07 15:56 | disposition home or self-care (01) ==
LOC: HO.LAB 15:55
PROVIDERS: PCP Internal Medicine; Visit Provider Internal Medicine Gastroenterology
DX: K62.5 Hemorrhage of anus and rectum (principal)
CPT/HCPCS: 36415; 82728; 85025; 86140; 99212

== ENCOUNTER → 2022-09-04 07:31 | Outpatient (BNVA) | payer OTHER, SELFPAY | PROVIDERS: PCP Internal Medicine; Visit Provider Internal Medicine Gastroenterology | DX: K21.9 Gastro-esophageal reflux disease without esophagitis (principal); K59.09 Other constipation; K62.5 Hemorrhage of anus and rectum; K64.8 Other hemorrhoids; E78.00 Pure hypercholesterolemia, unspecified; D50.0 Iron deficiency anemia secondary to blood loss (chronic) | CPT/HCPCS: 99212 ==

== ENCOUNTER 2022-10-07 14:28 | Outpatient (REF) | payer OTHER, SELFPAY ==
--- NOTE | ~2022-10-07 | MM_ITS ---
EXAMINATION: MM SCREENING DIGITAL BREAST TOMOSYNTHESIS, BILATERAL CLINICAL INFORMATION: Screening. Asymptomatic. The lifetime risk of breast cancer based on the Tyrer-Cuzick Model is 7%. COMPARISON: Mammography: 09/13/2021, 09/11/2020, 09/06/2019 TECHNIQUE: Digital breast tomosynthesis is performed in both the craniocaudal and mediolateral oblique views along with computer-aided detection (CAD). Synthesized 2D images are generated from the tomosynthesis. FINDINGS: There are scattered areas of fibroglandular density (ACR BI-RADS breast composition Category b). There are no significant masses, abnormal calcifications, or other abnormalities. Parenchymal pattern is similar to prior studies. There is no developing density or architectural abnormality. The axilla and skin contours are unremarkable. No significant changes. MM/MM tomosynthesis screening BI IMPRESSION: No mammographic evidence of malignancy. ASSESSMENT: BI-RADS 1: Negative RECOMMENDATION: Routine annual mammography screening. This patient's information was entered into a reminder system with a target due date for their next mammogram.
== END 2022-10-07 14:29 | disposition home or self-care (01) ==
LOC: HO.MAMMO 14:28
PROVIDERS: PCP Internal Medicine; Visit Provider Internal Medicine
DX: Z12.31 Encounter for screening mammogram for malignant neoplasm of breast (principal)
CPT/HCPCS: 77063; 77067

== ENCOUNTER 2022-12-14 08:41 | Outpatient (REF) | payer OTHER, SELFPAY ==
[2022-12-14 10:05] LABS: C Reactive Protein 0.22 mg/dL (< or = 0.50)
== END 2022-12-14 08:42 | disposition home or self-care (01) ==
LOC: HO.LAB 08:41
PROVIDERS: PCP Internal Medicine; Visit Provider Internal Medicine Gastroenterology
DX: K62.5 Hemorrhage of anus and rectum (principal)
CPT/HCPCS: 36415; 81479; 82397; 83520; 86140; 88346; 88350

== ENCOUNTER 2022-12-17 07:30 | Outpatient (AMB) | payer OTHER, SELFPAY ==
--- NOTE | 2022-12-17 07:31 | MHC.OFFVIS ---
Intake Intake Visit Reasons: 3 month fu Intake Note: Patient follow up for Chronic Constipation Patient cc: tiredness and fatigue come and go due the Anemia, less appetite, and Constipation with rectal bleeding. Denies any other GI problems. Director Of Physiotherapy Services Required: Yes Allergies No Known Allergies [No Known Allergies*] Allergy (Verified 12/17/22 07:31) Medication List - Last Reconciled 12/17/22 by Marya Galvan MD cyclobenzaprine 10 mg PO Q8H PRN dicyclomine 20 mg PO TID PRN 30 days ferrous sulfate 325 mg PO DAILY 90 days hydrocortisone 2.5% 1 appl [place] BID-QID PRN 30 days dalumgebh-ptvwdazcejmied-weuw 3-2.5 % (7 gram) 1 appl [place] BID melatonin 3 mg PO BEDTIME PRN metronidazole 1% (Metrogel) 1 appl topical BEDTIME naproxen 500 mg PO BID PRN omeprazole 10 mg PO DAILY polyethylene glycol 3350 (Miralax) 17 grams PO DAILY trazodone 50 mg PO BEDTIME PRN HPI 3 month fu HPI Details Telemedicine visit for this 47-year-old Marshallese-speaking female for follow-up of abdominal pain and diarrhea. ? Stool studies in the past were positive for Salmonella infection which resolved without treatment ??CHRONIC ILLNESSES:?GERD, menometrorrhagia ?LABS IN [facility]:?07/21/19 Normal CBC with mild anemia and mildly elevated transaminases. ? 12/14 celiac serologies were negative. ?IMAGING STUDIES 07/24/[address] scan showed: ? 1. There is a continued stable appearance of a of liv mesentery, of ? with nonpathologically enlarged mesenteric lymph nodes. Please note ? differential considerations on prior report. 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 ? 2. No bowel obstruction, free intracranial air abscess is seen. No ? focal bowel wall thickening. No appendicitis or diverticulitis is seen. ? 3. The gallbladder is surgically absent. ? 4. There is diminished, minimal nonspecific free fluid within the right hemipelvis. ? 5. There is mild degenerative disc disease redemonstrated at L4-L5. ?04/20/[address] scan showed: ? 1. Subtle fat stranding of the central mesentery with numerous nonpathologically enlarged lymph node is seen, a liv mesentery appearance. This has a broad differential which includes mesenteric adenitis. Enteritis is a further differential possibility, although no focal bowel wall thickening is presently noted on this examination ? performed without the benefit of oral contrast. It has been described with lymphoma although typically there is a history of lymphoma or evidence of lymphadenopathy elsewhere, not seen on this patient. In ? the absence of symptoms, it is of uncertain etiology or clinical significance. If there is continued clinical concern, a follow-up CT scan could be obtained in 3-6 months. ? 2. No bowel obstruction, free intraperitoneal air or abscess is seen. This no appendicitis or diverticulitis. ? 3. The gallbladder is surgically absent. ? 4. There is a small amount of free fluid within the dependent pelvis. A small right ovarian cyst is suspected. These findings could be more fully evaluated with dedicated pelvic ultrasound, if clinically indicated. ? 5. There is mild degenerative disc disease at L4-L5. ?09/2018 UGI showed: ? IMPRESSION: ? Prominent gastroesophageal reflux with slow clearing to the level of ? the thoracic inlet. ? Findings consistent with antral gastritis and duodenitis. Question duodenal bulb ulcer. ?ENDOSCOPIC STUDIES: 11/2018 EGD SHOWED: ? ESOPHAGUS: Mild esophagael motility disorder ? STOMACH: Hemorrhagic gastritis with prominent gastric folds ? Plan: ? Continue present medications (Omeprazole at 20 mg PO once daily) ? Patient has an appointment on 01/13/19 in the GI Clinic with Marya Galvan M.D ? BIOPSIES SHOWED: ? A. Small bowel, biopsy: Small bowel mucosa with no significant histopathology; no ? villous abnormality identified; no increase in intraepithelial lymphocytes. ? B. Stomach, antrum, biopsy: Moderate chronic, inactive gastritis; Helicobacter pylori organisms seen. ? C. Stomach, folds, biopsy: Moderate chronic, inactive gastritis; no Helicobacter pylori organisms seen. ?04/2019 COLONOSCOPY SHOWED: ? Patchy erythema with a few 2-3 mm aphthoid ulcers in the cecum - random biopsies were obtained from TI, right and left colon. ? Moderate hemorrhoids on retroflexed exam. ? Plan: ? Continue present medications (Omeprazole at 20 mg PO once daily) ? Repeat Colonoscopy interval based on path results in 3-5 years if ? polyps are adenomatous and 10 years if polyps are hyperplastic. ? BIOPSIES SHOWED: ? A. Terminal ileum, biopsies: Terminal ileum mucosa with mildly increased lamina propria chronic inflammation, non-specific; no active inflammation; negative for dysplasia/malignancy. ? B. Colon, right, biopsies: Mild chronic colitis; negative for dysplasia/malignancy. ? C. Colon, left, biopsies: Mild chronic colitis; negative for dysplasia/malignancy. ?TODAY'S VISIT ? Telephone Program Manager,? # [phone] Lab tests reviewed - IBD serologies are still pending. Abdominal pain and constipation are better. Rectal bleeding is better. PAST VISIT: Still has some rectal bleeding when she goes to the bathroom - when she has hard stools. Did not get topical treatment for hemorrhoids - pharmacy told her it needed a PA. Has been using OTC hemorrhoidal creams and they have not been helpful Pt advised to start iron pills for anemia and have labs checked in 4 weeks. Labs show chronic anemia - of note pt is status post hysterectomy 3-4 yrs ago. Patient cc: abdominal bloating, constipation and acid reflex on and off is much better with medication. Patient said the pharmacy never gave her the Hemorrhoids ointment. When she does have a BM she does still see some blood as well. She states that she took a picture with the blood in the toilet. ?Unable to have a BM for the past 3 days - she was able to go today Taking a fibre pill and does not think its helping a lot. Using hemorrhoid cream one to two times daily. Taking Miralax once a day. Constipation has been better since her last visit to the ED. Abdominal pain is better and denies diarrhea. Has eliminated certain foods due to the pain. No problems with hemorrhoids since her last ER visit - using HC with Lidocaine cream prn. ? ?I had not had any abdominal pain for 2 weeks until yesterday 11:40 in the am. ? Pain came on suddenly. ? She was at [facility] and did not want to use the rest room. ? Went home and had an accident and pain gradually subsided around 1:30 pm. ? Did not eat any thing in the morning. ? Wt fluctuates - looses 3-5 lbs and then regains it PFSH Medical History Abnormal CT scan, chest Hemorrhoids with complication Colon cancer screening Generalized abdominal pain Visual impairment Duodenal ulcer GERD (gastroesophageal reflux disease) Obesity (BMI 30-39.9) Menometrorrhagia Seizure in childhood Sclerosing mesenteritis GERD without esophagitis Surgical History Hx of colonoscopy Hx of cholecystectomy (~2005) Hx of hysterectomy Hx of section Family History Father No problems noted. Mother No problems noted. Daughter No problems noted. Son No problems noted. Brother Substance abuse Social History Household Members: Children Housing: Apartment Alcohol intake: never Patient Tobacco Use Status: Never used Tobacco e-Cigarette/Vaping Use: Never Used Second Hand Smoke Exposure: No Current occupational status: employed Current occupation: [employer] Cognitive needs: No Hearing needs: No Vision needs: No Review of Systems Const All systems reviewed & are unremarkable except as noted in HPI and below Assessment & Plan Assessment & Plan (1) Iron deficiency anemia due to chronic blood loss: Code(s): D50.0 - Iron deficiency anemia secondary to blood loss (chronic) (2) Rectal bleeding: Code(s): K62.5 - Hemorrhage of anus and rectum (3) Hemorrhoids with complication: Code(s): K64.8 - Other hemorrhoids (4) GERD (gastroesophageal reflux disease): Code(s): K21.9 - Gastro-esophageal reflux disease without esophagitis Qualifiers: Esophagitis presence: without esophagitis Qualified Code(s): K21.9 - Gastro-esophageal reflux disease without esophagitis (5) Chronic constipation: Code(s): K59.09 - Other constipation Plan 47 year old Marshallese-speaking female?with GERD, menometrorrhagia followed in GI clinic for post prandial generalized abdominal pain associated with diarrhea for the past 5 years when she moved from [place].? Labs revealed elevated sed rate of 71, a normal CRP of 0.27. Celiac serologies showed normal TTG IgA, mild increase in antigliadin antibody IgA 27. Iron studies revealed a ferritin of 32. Her symptoms are likely a combination of diarrhea predominent IBS and sclerosing mesenteritis. UGI showed possible ulcer in duodenal bulb. EGD showed Mild esophageal motility disorder, Hemorrhagic gastritis with prominent gastric folds, no ulcer noted in the duodenum. Biopsies were positive for H pylori. Patient was treated with triple therapy for H pylori gastritis(clarithromycin, amoxicillin for 10 days) and advised to resume dicyclomine for IBS. Patient had acute onset of abdominal pain with diarrhea and stool studies are positive for Salmonella infection which resolved without treatment. 05/17 Colonoscopy showed Patchy erythema with a few 2-3 mm aphthoid ulcers. Random biopsies were obtained from TI, right and left colon which showed mild chronic colitis- likely related to Salmonella infection; negative for dysplasia/malignancy.? Repeat screening colonoscopy is advised in 5 years for follow-up of colitis (due 04/2025). Abdominal pain has improved. Patient complains of constipation with intermittent hemorrhoids.? She was advised to increase water and fluid intake and use senna 2 to 3 times a week p.r.n. Repeat labs to follow up on mild anemia and elevated LFTs in past - repeat LFTs were normal. Pt advised to start iron pills for anemia and have labs checked in 4 weeks. 12/17/22 Pt advised to schedule an EGD and a colonoscopy (recurrent SIOBHAN anemia and FU on colitis seen on past colon). Pt to return to the lab for lab tests ordered by Dr Garcia. Follow-up appointment in 4 months Medications: New bisacodyl (Dulcolax (bisacodyl)) Take 2 tablets at 12 pm daily starting 3 days before colonoscopy appointment 10 mg (2 x 5 mg) PO ONCE PRN 6 tabs 0RF colon prep 3 days polyethylene glycol 3350 (Miralax) Mix Miralax with 64 oz(8 cups) of Crystal light. Take 2 tablets of Dulcolax qt 12 pm. Wait to have your 1st bowel movement, then begin drinking Miralax. Drink a glass of Miralax every 10-15 minutes until you are finished. You will drink at least another 4 cups of clear liquid of your choice over the next 2 hours. Please drink as many clear liquids as possible You may have clear liquids up to four hours before your procedure 17 grams PO DAILY 238 grams 0RF 1 day Telehealth Telehealth Location of provider rendering services: practice address Location of patient: address on file Patient Identification confirmed using: Name, : Yes Telehealth method: voice only Patient verbally consented to treatment: Yes Patient verbally consented to billing insurance company: Yes Patient informed of any privacy concerns related to visit: Yes Minutes spent on Phone/Video with Pt.: 16 Coding Level of Care Code New Pt Level 2 (65161) Diagnoses Iron deficiency anemia due to chronic blood loss D50.0 Rectal bleeding K62.5 Hemorrhoids with complication K64.8 Gastroesophageal reflux disease without esophagitis K21.9 Esophagitis presence: without esophagitis Chronic constipation K59.09
== END 2022-12-17 08:43 | disposition home or self-care (01) ==
LOC: HO.HGI 07:30
PROVIDERS: PCP Internal Medicine; Visit Provider Internal Medicine Gastroenterology
DX: D50.0 Iron deficiency anemia secondary to blood loss (chronic) (principal); K62.5 Hemorrhage of anus and rectum; K64.8 Other hemorrhoids; K21.9 Gastro-esophageal reflux disease without esophagitis; K59.09 Other constipation
CPT/HCPCS: 99212

== ENCOUNTER → 2022-12-17 07:30 | Outpatient (BNVA) | payer OTHER, SELFPAY | PROVIDERS: PCP Internal Medicine; Visit Provider Internal Medicine Gastroenterology | DX: K59.09 Other constipation (principal); K21.9 Gastro-esophageal reflux disease without esophagitis; K64.8 Other hemorrhoids; K62.5 Hemorrhage of anus and rectum; D50.0 Iron deficiency anemia secondary to blood loss (chronic); Z90.49 Acquired absence of other specified parts of digestive tract | CPT/HCPCS: 99212 ==

== ENCOUNTER 2023-03-16 11:03 | Emergency (ER) | payer OTHER, SELFPAY ==
[2023-03-16 11:21] VITALS: BP 105/76; PULSE 100; RESP 18; TEMP 37.1; O2SAT 98; BMI 26.1
[2023-03-16 11:33] VITALS: BP 109/57; PULSE 93; O2SAT 98
[2023-03-16] MEDS: Lidocaine 4 % Patch ADH..PATCH 1 PATCH TRANSDERMA (12:07)
--- NOTE | 2023-03-16 12:09 | ED.BACK ---
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 Denies direct injury/ trauma or fall. Admits to taking Percocet around 21:00 last night without relief, denies taking anything today. admits to associated paresthesias down are LD. Denies fever, weakness, incontinence/ retention, abdominal pain, vomiting MD elicited complaint: back pain Related Data Home Medications Medication Instructions Recorded Confirmed omeprazole 10 mg capsule,delayed 10 mg PO DAILY 10/31/20 12/17/22 release yrftazqll-cwnbmgwjamuiop-easa vera 1 appl WA BID 04/07/22 12/17/22 3 %-2.5 % (7 gram) rectal kit melatonin 3 mg capsule 3 mg PO BEDTIME PRN 09/03/22 12/17/22 polyethylene glycol 3350 17 gram 17 g PO DAILY 09/03/22 12/17/22 oral powder packet (Miralax) Previous Rx's Medication Instructions Recorded dicyclomine 20 mg tablet 20 mg PO TID PRN abdominal pain 30 10/31/20 days #60 tabs metronidazole 1 % topical gel 1 appl topical BEDTIME #60 grams 09/01/21 (Metrogel) cyclobenzaprine 10 mg tablet 10 mg PO Q8H PRN Muscle spasm #14 09/27/21 tabs naproxen 500 mg tablet 500 mg PO BID PRN pain #10 tabs 09/27/21 ferrous sulfate 325 mg (65 mg 325 mg PO DAILY 90 days #90 tabs 06/05/22 iron) tablet hydrocortisone 2.5 % topical cream 1 appl [place] BID-QID PRN hemorrhoids 09/04/22 with perineal applicator 30 days #30 grams bisacodyl 5 mg tablet,delayed 10 mg (2 x 5 mg) PO ONCE PRN colon 12/17/22 release (Dulcolax (bisacodyl)) prep 3 days #6 tabs polyethylene glycol 3350 17 17 g PO DAILY 1 day #238 grams 12/17/22 gram/dose oral powder (Miralax) trazodone 50 mg tablet 50 mg PO BEDTIME PRN sleep #90 tabs 12/31/22 acetaminophen 500 mg tablet 500 mg PO Q6H PRN fever or pain 03/16/23 (Tylenol Extra Strength) #14 tabs cyclobenzaprine 5 mg tablet 5 mg PO Q8H PRN pain (scale score 03/16/23 7-10) 5 days #14 tabs lidocaine 5 % topical patch 1 patch topical DAILY PRN pain #30 03/16/23 (Lidoderm) ea morphine 15 mg immediate release 15 mg PO Q8H PRN pain (scale score 03/16/23 tablet 7-10) 3 days #9 tabs naproxen 500 mg tablet 500 mg PO BID PRN pain 10 days #20 03/16/23 tabs Allergies Allergy/AdvReac Type Severity Reaction Status Date / Time No Known Allergies Allergy Verified 12/17/22 07:31 [No Known Allergies*] Review of Systems Review of Systems: Constitutional: No Fever, No Chills ENT/Mouth: No Ear Pain, No Nasal Congestion, No sore throat, No Rhinorrhea, No Swallowing Difficulty Cardiovascular: No Chest Pain, No SOB Respiratory: No Cough, No Sputum, No Wheezing Gastrointestinal: No Nausea, No Vomiting, No Diarrhea, No Abdominal pain Genitourinary: No Dysuria, No Urinary Frequency, No Hematuria, No Urinary Incontinence/retention, No Flank Pain Musculoskeletal: + joint pain, No Myalgias, No Joint Swelling Skin: No Skin Lesions, No rash Neuro: No Weakness, No Numbness, +Paresthesias Yes all other systems are reviewed and are negative Constitutional: Constitutional: Reports as per HPI Neurologic: Denies Sensory deficit (Neuro) [facility] Past Medical History Attestation statement: The following information was validated with the patient. Source: old records reviewed Medical History Abnormal CT scan, chest Hemorrhoids with complication Colon cancer screening Generalized abdominal pain Visual impairment Duodenal ulcer GERD (gastroesophageal reflux disease) Obesity (BMI 30-39.9) Menometrorrhagia Seizure in childhood Sclerosing mesenteritis GERD without esophagitis Surgical History Hx of colonoscopy Hx of cholecystectomy (~2006) Hx of hysterectomy Hx of section Family History Family History Father No problems noted. Mother No problems noted. Daughter No problems noted. Son No problems noted. Brother Substance abuse Social History Social History Household Members: Children Housing: Apartment Alcohol intake: never Patient Tobacco Use Status: Never used Tobacco Smoked in Last 30 Days: No e-Cigarette/Vaping Use: Never Used Second Hand Smoke Exposure: No Advance Directives: No Patient : No Current occupational status: employed Current occupation: [employer] Cognitive needs: No Hearing needs: No Vision needs: No Physical Exam Vital Signs: Vital Signs: Last Vital Signs Temp 99.4 F 03/16/23 12:28 Pulse 95 03/16/23 12:28 Resp 18 03/16/23 12:28 BP 103/67 03/16/23 12:28 Pulse Ox 93 03/16/23 12:28 O2 Del Method Room Air 03/16/23 12:28 BMI result Body Mass Index 26.1 Const: General: cooperative, healthy appearing and no acute distress Orientation/consciousness: patient oriented x3 Limitations: no limitations HEENT: Head: Yes normal to inspection and Yes atraumatic Ears: hearing grossly normal bilaterally General nose exam: Normal external nose present Face and sinus: Yes normal facial exam Eyes: General: appearance normal, both eyes and all related structures EOM: EOMs intact bilaterally Neck: Neck: Yes normal visual inspection and Yes no meningeal signs Resp: Effort & Inspection: normal respiratory effort and no respiratory distress Auscultation: clear to auscultation bilaterally Cardio: Rate: regular rate Heart sounds: S1 normal heart sound present and S2 normal heart sound present GI: Inspection: Yes normal to inspection Palpation (GI): Soft to palpation, nontender, no guarding and not rigid : General: Yes no CVA tenderness Back/Spine/Pelvis: Other: No midline cervical/thoracic/lumbar spinous tenderness/step-off or deformity. + right-sided lower lumbar / upper buttock MSK tenderness to palpation. no rash/ecchymosis Back: no CVA tenderness Thoracic/Lumbar Spine: thoracic and lumbar spine normal to inspection Skin: Rashes: no rashes Wounds: no wounds Neuro: Other: Strength intact throughout. No saddle anesthesia. Sensation intact to light touch. Neurovascular intact distally General: patient oriented x3, gait normal, tone normal, moves all extremities and no meningeal signs Cranial nerves: Yes CN's II-XII intact bilaterally Gait exam (Neuro): Normal gait present Motor exam (neuro): 5/5 motor strength present throughout Sensory Exam: No Sensory deficit (Neuro) Extrem: General: Yes normal to inspection Course Course Course Narrative: -[id number]-- patient reports mild symptomatic improvement after medications given in the ED. Is ambulating with assistance Results discussed with patient including worrisome signs and symptoms and strict return precautions, and when to return to the emergency department. They verbalized understanding and feel safe for discharge at this time. Medications Administered Discontinued Medications Generic Name Dose Route Start Last Admin Trade Name Freq PRN Reason Stop Dose Admin Cyclobenzaprine HCl 10 mg 03/16/23 11:35 03/16/23 12:10 Cyclobenzaprine Hcl 10 Mg Tablet PO 03/16/23 11:36 10 mg ONCE ONE Administration Ketorolac Tromethamine 30 mg 03/16/23 11:35 03/16/23 12:10 Ketorolac Tromethamine 30 Mg/Ml Vial IM 03/16/23 11:36 30 mg ONCE ONE Administration Lidocaine 1 patch 03/16/23 11:35 03/16/23 12:07 Lidocaine 4 % Patch Adh..Patch TRANSDERMA 03/16/23 11:36 1 patch ONCE ONE Administration Protocol Morphine Sulfate 15 mg 03/16/23 11:35 03/16/23 12:10 Morphine Sulfate Immed Release 15 Mg Tablet PO 03/16/23 11:36 15 mg ONCE ONE Administration Medical Decision Making Medical Decision Making [facility] Narrative: 47-year-old female with a past medical history of GERD, seizures, sciatica, presenting to the ED via EMS complaining of acute on chronic right-sided low back pain radiating down RLD 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 on exam vital signs stable, NAD, appears in pain, no midline spinous tenderness throughout or red flag symptoms. Reproducible right lower lumbar MSK/ upper buttock tenderness, no rash, no saddle anesthesia. Abdomen soft/ nontender. Concern for sciatica/MSK pain/ strain. Low suspicion for cauda equina/cord compression, epidural abscess, renal stone/pyelo plan: P.o. Flexeril, Lidoderm patch, IM Toradol, p.o. morphine, re-evaluate Please refer to course for remaining clinical decision making, interpretation of labs/imaging results, and discussions with consultants and/or family members. Differential Diagnosis Differential Diagnoses: The differential diagnosis associated with the presentation includes As above Admission/Observation Consideration of admission/observation: Escalation of care including admission/observation considered Lab Data MDM Lab Attestation statement: I reviewed the patient's lab results. Radiology Impression Discussion of test interpretation with radiology: I have reviewed the radiologist's reading. Independent Historian Clinical information obtained from an independent historian. History obtained from or confirmed by: Parent and EMS External Record Review External record reviewed: Inpatient record, Office record, Outpatient record, Prior outpatient labs, Prior outpatient radiology, Primary care record and Outside ED record Tests considered The following testing was considered but not selected: As above Prescription Management I considered prescription management with: Pain Medication Chronic Conditions Patient?s care impacted by: Other (GERD, anemia) Discharge Plan Discharge Clinical Impression: Lumbar radiculopathy Patient Disposition: Home, Self-Care Instructions: Lumbar Radiculopathy (ED) Additional Instructions: Your pain is likely musculoskeletal Flexeril is a muscle relaxer, take at night as it makes you drowsy, do not drive, drink alcohol, or operate machinery while taking it Naproxen as an anti-inflammatory / pain medication, take with food Lidoderm patches are numbing patches, apply to painful area morphine is opiate pain medication, take only when pain is severe for the next 3 days In addition take Tylenol at home If symptoms persist or worsen, pain becomes unbearable, you developed urinary retention or incontinence, or weakness return to the ED Es probable que chavira dolor sea musculoesquel?elsa. Flexeril es un relajante muscular, t?hernandez por la noche ya que produce somnolencia, no conduzca, verena alcohol ni opere maquinaria mientras lo isabella. Naproxeno beni antiinflamatorio/analg?sico, batsheva con alimentos Los parches de Lidoderm son parches adormecedores, se aplican en el ?avery dolorida. La morfina es un analg?sico opi?hosting engineer, t?hernandez s?lo cuando el dolor sea intenso cristopher los pr?ximos 3 d?as. Adem?s, tome Tylenol en casa. Si los s?ntomas persisten o empeoran, el dolor se vuelve insoportable, usted desarrolla retenci?n urinaria o incontinencia, o debilidad, regrese al servicio de urgencias. Prescriptions: New morphine 15 mg tablet 15 mg PO Q8H PRN (Reason: pain (scale score 7-10)) 3 Days Qty: 9 0RF Rx Instructions: Partial Fill upon patient request. acetaminophen [Tylenol Extra Strength] 500 mg tablet 500 mg PO Q6H PRN (Reason: fever or pain) Qty: 14 0RF lidocaine [Lidoderm] 5 % adhesive patch,medicated 1 patch topical DAILY MDD remove after 12 hours PRN (Reason: pain) Qty: 30 0RF Rx Instructions: leave on most painful area for up to 12 hrs cyclobenzaprine 5 mg tablet 5 mg PO Q8H PRN (Reason: pain (scale score 7-10)) 5 Days Qty: 14 0RF naproxen 500 mg tablet 500 mg PO BID PRN (Reason: pain) 10 Days Qty: 20 0RF No Action trazodone 50 mg tablet 50 mg PO BEDTIME PRN (Reason: sleep) Qty: 90 2RF cyclobenzaprine 10 mg tablet 10 mg PO Q8H PRN (Reason: Muscle spasm) Qty: 14 0RF naproxen 500 mg tablet 500 mg PO BID PRN (Reason: pain) Qty: 10 0RF metronidazole [Metrogel] 1 % gel 1 appl topical BEDTIME Qty: 60 1RF melatonin 3 mg capsule 3 mg PO BEDTIME PRN polyethylene glycol 3350 [Miralax] 17 gram powder in packet 17 g PO DAILY omeprazole 10 mg capsule,delayed release(DR/EC) 10 mg PO DAILY dicyclomine 20 mg tablet 20 mg PO TID PRN (Reason: abdominal pain) 30 Days Qty: 60 3RF bisacodyl [Dulcolax (bisacodyl)] 5 mg tablet,delayed release (DR/EC) 10 mg PO ONCE PRN (Reason: colon prep) 3 Days Qty: 6 0RF Rx Instructions: Take 2 tablets at 12 pm daily starting 3 days before colonoscopy appointment polyethylene glycol 3350 [Miralax] 17 gram/dose powder 17 g PO DAILY 1 Days Qty: 238 0RF Rx Instructions: Mix Miralax with 64 oz(8 cups) of Crystal light. Take 2 tablets of Dulcolax qt 12 pm. Wait to have your 1st bowel movement, then begin drinking Miralax. Drink a glass of Miralax every 10-15 minutes until you are finished. You will drink at least another 4 cups of clear liquid of your choice over the next 2 hours. Please drink as many clear liquids as possible You may have clear liquids up to four hours before your procedure orpxmxjlc-jvhhbvswvolscn-zeha 3-2.5 % (7 gram) kit 1 appl WA BID ferrous sulfate 325 mg (65 mg iron) tablet 325 mg PO DAILY 90 Days Qty: 90 2RF hydrocortisone 2.5 % cream with perineal applicator 1 appl WA BID-QID PRN (Reason: hemorrhoids) 30 Days Qty: 30 2RF Referrals: Po,Nolberto Boykin MD [Primary Care Provider] - 3 days Interventions: ED Discharge Assessment Last Done: 03/16/23 13:38 Discharge Date/Time: 03/16/23 13:38 Print Language: Montserratian
[2023-03-16] MEDS: Morphine Sulfate Immed Release 15 MG TABLET PO (12:10)
[2023-03-16] MEDS: Cyclobenzaprine HCl 10 MG TABLET PO (12:10)
[2023-03-16] MEDS: Ketorolac Tromethamine 30 MG/ML VIAL IM (12:10)
[2023-03-16 12:28] VITALS: BP 103/67; PULSE 95; RESP 18; TEMP 37.4; O2SAT 93
--- NOTE | 2023-03-16 13:25 | PC.NURSE ---
pt ambulated with minimal assistance of 2, ROSIE Moran aware, plan for dc home
== END 2023-03-16 13:38 | disposition home or self-care (01) ==
PROVIDERS: Emergency Provider Emergency Medicine; PCP Internal Medicine
DX: M54.16 Radiculopathy, lumbar region (principal); M54.50 Low back pain, unspecified
CPT/HCPCS: 96372; 99284; J1885

== ENCOUNTER 2023-04-08 07:14 | Outpatient (AMB) | payer OTHER, SELFPAY ==
--- NOTE | 2023-04-08 07:26 | A.OFFVIS_ITS ---
Intake Vital Signs 04/08/23 07:36 Height 5 ft 1 in Weight 127 lb 6 oz BMI 24.1 BP 112/77 Blood Pressure Location Lt brachial Position Sitting Pulse 112 H Intake Visit Reasons: 4 mnth f/u Intake Note: Patient follow up for constipation. Patient cc: constipation with loose stool, weight lost, and abdominal pain on and off. 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 Accompanied by: Self / Same As Patient Allergies No Known Allergies [No Known Allergies*] Allergy (Verified 04/30/23 07:31) Medication List - Last Reconciled 04/08/23 by Marya Galvan MD acetaminophen (Tylenol Extra Strength) 500 mg PO Q6H PRN cyclobenzaprine 5 mg PO Q8H PRN 5 days ferrous sulfate 325 mg PO DAILY 90 days lidocaine 5% (Lidoderm) 1 patch topical DAILY PRN MDD remove after 12 hours rkbokuyjn-biyiogbzxdvsim-ikjj 3-2.5 % (7 gram) 1 appl [place] BID naproxen 500 mg PO BID PRN 10 days omeprazole 10 mg PO DAILY trazodone 50 mg PO BEDTIME PRN HPI 4 mnth f/u HPI Details GI clinic visit for this 47-year-old Romanian-speaking female for follow-up of abdominal pain and diarrhea. ? ??CHRONIC ILLNESSES:?GERD, menometrorrhagia ?LABS IN [facility]:?07/21/19 Normal CBC with mild anemia and mildly elevated transaminases. ? 12/14 celiac serologies were negative. ?IMAGING STUDIES 07/24/[address] scan showed: ? 1. There is a continued stable appearance of a of liv mesentery, of ? with nonpathologically enlarged mesenteric lymph nodes. Please note ? differential considerations on prior report. 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 ? 2. No bowel obstruction, free intracranial air abscess is seen. No ? focal bowel wall thickening. No appendicitis or diverticulitis is seen. ? 3. The gallbladder is surgically absent. ? 4. There is diminished, minimal nonspecific free fluid within the right hemipelvis. ? 5. There is mild degenerative disc disease redemonstrated at L4-L5. ?04/20/[address] scan showed: ? 1. Subtle fat stranding of the central mesentery with numerous nonpathologically enlarged lymph node is seen, a liv mesentery appearance. This has a broad differential which includes mesenteric adenitis. Enteritis is a further differential possibility, although no focal bowel wall thickening is presently noted on this examination ? performed without the benefit of oral contrast. It has been described with lymphoma although typically there is a history of lymphoma or evidence of lymphadenopathy elsewhere, not seen on this patient. In ? the absence of symptoms, it is of uncertain etiology or clinical significance. If there is continued clinical concern, a follow-up CT scan could be obtained in 3-6 months. ? 2. No bowel obstruction, free intraperitoneal air or abscess is seen. This no appendicitis or diverticulitis. ? 3. The gallbladder is surgically absent. ? 4. There is a small amount of free fluid within the dependent pelvis. A small right ovarian cyst is suspected. These findings could be more fully evaluated with dedicated pelvic ultrasound, if clinically indicated. ? 5. There is mild degenerative disc disease at L4-L5. ?09/2018 UGI showed: ? IMPRESSION: ? Prominent gastroesophageal reflux with slow clearing to the level of ? the thoracic inlet. ? Findings consistent with antral gastritis and duodenitis. Question duodenal bulb ulcer. ?ENDOSCOPIC STUDIES: 11/2018 EGD SHOWED: ? ESOPHAGUS: Mild esophagael motility disorder ? STOMACH: Hemorrhagic gastritis with prominent gastric folds ? Plan: ? Continue present medications (Omeprazole at 20 mg PO once daily) ? Patient has an appointment on 01/13/19 in the GI Clinic with Marya Galvan M.D ? BIOPSIES SHOWED: ? A. Small bowel, biopsy: Small bowel mucosa with no significant histopathology; no ? villous abnormality identified; no increase in intraepithelial lymphocytes. ? B. Stomach, antrum, biopsy: Moderate chronic, inactive gastritis; Helicobacter pylori organisms seen. ? C. Stomach, folds, biopsy: Moderate chronic, inactive gastritis; no Helicobacter pylori organisms seen. ?04/2019 COLONOSCOPY SHOWED: ? Patchy erythema with a few 2-3 mm aphthoid ulcers in the cecum - random biopsies were obtained from TI, right and left colon. ? Moderate hemorrhoids on retroflexed exam. ? Plan: ? Continue present medications (Omeprazole at 20 mg PO once daily) ? Repeat Colonoscopy interval based on path results in 3-5 years if ? polyps are adenomatous and 10 years if polyps are hyperplastic. ? BIOPSIES SHOWED: ? A. Terminal ileum, biopsies: Terminal ileum mucosa with mildly increased lamina propria chronic inflammation, non-specific; no active inflammation; negative for dysplasia/malignancy. ? B. Colon, right, biopsies: Mild chronic colitis; negative for dysplasia/malignancy. ? C. Colon, left, biopsies: Mild chronic colitis; negative for dysplasia/malignancy. 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 hemorrhoids start popping out when she strains to have a BM. Also notes intermittent bleeding. Lab tests reviewed - IBD serologies positive for Crohn's disease. Appetite is low - hardly eating anything. Did not have labs done since she has been very depressed and not leaving her house. Has been feeling very hot. PAST VISIT: Abdominal pain and constipation are better. Rectal bleeding is better. Still has some rectal bleeding when she goes to the bathroom - when she has hard stools. Did not get topical treatment for hemorrhoids - pharmacy told her it needed a PA. Has been using OTC hemorrhoidal creams and they have not been helpful Pt advised to start iron pills for anemia and have labs checked in 4 weeks. Labs show chronic anemia - of note pt is status post hysterectomy 3-4 yrs ago. Patient cc: abdominal bloating, constipation and acid reflex on and off is much better with medication. Patient said the pharmacy never gave her the Hemorrhoids ointment. When she does have a BM she does still see some blood as well. She states that she took a picture with the blood in the toilet. ?Unable to have a BM for the past 3 days - she was able to go today Taking a fibre pill and does not think its helping a lot. Using hemorrhoid cream one to two times daily. Taking Miralax once a day. Constipation has been better since her last visit to the ED. Abdominal pain is better and denies diarrhea. Has eliminated certain foods due to the pain. No problems with hemorrhoids since her last ER visit - using HC with Lidocaine cream prn. ? ?I had not had any abdominal pain for 2 weeks until yesterday 11:40 in the am. ? Pain came on suddenly. ? She was at [facility] and did not want to use the rest room. ? Went home and had an accident and pain gradually subsided around 1:30 pm. ? Did not eat any thing in the morning. ? Wt fluctuates - looses 3-5 lbs and then regains it PFS Medical History (Updated 04/08/23 @ 08:10 by Marya Galvan MD) Abnormal CT scan, chest Hemorrhoids with complication Colon cancer screening Generalized abdominal pain Visual impairment Duodenal ulcer GERD (gastroesophageal reflux disease) Obesity (BMI 30-39.9) Menometrorrhagia Seizure in childhood Sclerosing mesenteritis GERD without esophagitis Surgical History Hx of colonoscopy Hx of cholecystectomy (~2005) Hx of hysterectomy Hx of section Family History Father No problems noted. Mother No problems noted. Daughter No problems noted. Son No problems noted. Brother Substance abuse Social History Household Members: Children Housing: Apartment Alcohol intake: never Patient Tobacco Use Status: Never used Tobacco e-Cigarette/Vaping Use: Never Used Second Hand Smoke Exposure: No Current occupational status: employed Current occupation: [employer] Cognitive needs: No Hearing needs: No Vision needs: No Review of Systems Const All systems reviewed & are unremarkable except as noted in HPI and below Physical Exam Vital Signs: Last Vital Signs Pulse 112 H 04/08/23 07:36 BP 112/77 04/08/23 07:36 BMI result Body Mass Index 24.1 Const General: healthy appearing and no acute distress Nutritional Appearance: average body habitus Orientation/consciousness: patient oriented x3 Limitations: language barrier HEENT Head: Yes normal to inspection Ears: hearing grossly normal bilaterally Mouth: Normal oral and palatal mucosa present Eyes Sclerae: sclerae normal Pupils: Equal, round and reactive pupils present Neck Neck: Yes normal visual inspection Chest Chest palpation & inspection: normal inspection of the chest Resp Effort & Inspection: normal respiratory effort Auscultation: clear to auscultation bilaterally Cardio Palpation: normal PMI Rate: regular rate Rhythm: regular rhythm Heart sounds: S1 normal heart sound present, S2 normal heart sound present and no murmurs GI Palpation (GI): Soft to palpation, nontender and No hepatosplenomegaly present Auscultation: normal bowel sounds Rectal Exam - Female: deferred Skin General skin exam: no rashes or lesions noted Neuro General: patient oriented x3, gait normal and moves all extremities Cranial nerves: Yes Equal, round and reactive pupils present Psych Appearance: grossly normal Mental Status: mental status grossly normal Assessment & Plan Assessment & Plan (1) Iron deficiency anemia due to chronic blood loss: Code(s): D50.0 - Iron deficiency anemia secondary to blood loss (chronic) (2) Rectal bleeding: Code(s): K62.5 - Hemorrhage of anus and rectum (3) Hemorrhoids with complication: Code(s): K64.8 - Other hemorrhoids (4) GERD (gastroesophageal reflux disease): Code(s): K21.9 - Gastro-esophageal reflux disease without esophagitis Qualifiers: Esophagitis presence: without esophagitis Qualified Code(s): K21.9 - Gastro-esophageal reflux disease without esophagitis (5) Chronic constipation: Code(s): K59.09 - Other constipation (6) Abdominal pain: Code(s): R10.9 - Unspecified abdominal pain Plan 47 year old Romanian-speaking female?with GERD, menometrorrhagia followed in GI clinic for post prandial generalized abdominal pain associated with diarrhea for the past 5 years when she moved from [place].? Labs revealed elevated sed rate of 71, a normal CRP of 0.27. Celiac serologies showed normal TTG IgA, mild increase in antigliadin antibody IgA 27. Iron studies revealed a ferritin of 32. Her symptoms are likely a combination of diarrhea predominent IBS and sclerosing mesenteritis. UGI showed possible ulcer in duodenal bulb. EGD showed Mild esophageal motility disorder, Hemorrhagic gastritis with prominent gastric folds, no ulcer noted in the duodenum. Biopsies were positive for H pylori. Patient was treated with triple therapy for H pylori gastritis(clarithromycin, amoxicillin for 10 days) and advised to resume dicyclomine for IBS. Patient had acute onset of abdominal pain with diarrhea and stool studies are positive for Salmonella infection which resolved without treatment. 05/17 Colonoscopy showed Patchy erythema with a few 2-3 mm aphthoid ulcers. Random biopsies were obtained from TI, right and left colon which showed mild chronic colitis- likely related to Salmonella infection; negative for dysplasia/malignancy.? Repeat screening colonoscopy is advised in 5 years for follow-up of colitis (due 04/2025). Abdominal pain has improved. Patient complains of constipation with intermittent hemorrhoids.? She was advised to increase water and fluid intake and use senna 2 to 3 times a week p.r.n. Repeat labs to follow up on mild anemia and elevated LFTs in past - repeat LFTs were normal. Pt advised to start iron pills for anemia and have labs checked in 4 weeks. 12/17/22 Pt advised to schedule an EGD and a colonoscopy (recurrent SIOBHAN anemia and FU on colitis seen on past colon). Pt to return to the lab for lab tests ordered by Dr Garcia. 04/08/23 Pt complains of abdominal pain started last wed and wednesday BM was very hard and pain improved when she started having diarrhea Recurrent pain and Wed and started having diarrhea. hemorrhoids start popping out when she strains to have a BM. Also notes intermittent bleeding. Lab tests reviewed - IBD serologies positive for Crohn's disease. Pt advised to schedule an EGD and colonoscopy for further evaluation and to rule out IBD Follow-up appointment in 6 weeks Orders: Orders C Reactive Protein 04/08/23 R10.9 - Unspecified abdominal pain Medications: New omeprazole 10 mg PO DAILY 30 caps 3RF Coding Level of Care Code Est Pt Level 4 (68448) Diagnoses Iron deficiency anemia due to chronic blood loss D50.0 Rectal bleeding K62.5 Hemorrhoids with complication K64.8 Gastroesophageal reflux disease without esophagitis K21.9 Esophagitis presence: without esophagitis Chronic constipation K59.09 Abdominal pain R10.9 Time Spent (min) 21
[2023-04-08 07:36] VITALS: BP 112/77; PULSE 112; BMI 24.1
== END 2023-04-08 08:15 | disposition home or self-care (01) ==
PROVIDERS: PCP Internal Medicine; Visit Provider Internal Medicine Gastroenterology
DX: D50.0 Iron deficiency anemia secondary to blood loss (chronic) (principal); K62.5 Hemorrhage of anus and rectum; K64.8 Other hemorrhoids; K21.9 Gastro-esophageal reflux disease without esophagitis; K59.09 Other constipation; R10.9 Unspecified abdominal pain
CPT/HCPCS: 99214

== ENCOUNTER 2023-04-08 07:14 | Outpatient (REF) | payer OTHER, SELFPAY ==
[2023-04-08 09:28] LABS: Basophils Percent Auto 0.6 % (0-2); Eosinophils Absolute Auto 0.1 X10*3/uL (0.0-0.4); Eosinophils Percent Auto 0.8 % (0-4); Hematocrit 37.1 % (37.0-47.0); Hemoglobin 11.9 g/dl (12.0-16.0); Imm Gran Abs Auto 0.01 X10*3/uL (0.00-0.03); Imm Gran Pct Auto 0.2 % (0.0-0.4); Immature Retic Fraction 7.7 % (3.0-15.9); Lymphocytes Absolute Auto 3.3 X10*3/uL (1.2-4.9); Lymphocytes Percent Auto 50.2 % (20-40); MANUAL DIFF FLAG SCAN; Mean Corpuscular HGB Conc 32.1 g/dl (31.0-35.0); Mean Corpuscular Hemoglobin 27.5 pg (27.0-33.0); Mean Corpuscular Volume 85.9 fL (80.0-98.0); Monocytes Absolute Auto 0.9 X10*3/uL (0.1-1.2); Monocytes Percent Auto 13.5 % (2-11); Neutrophils Absolute Auto 2.3 x10*3/uL (2.0-8.3); Neutrophils Percent Auto 34.7 % (45-73); PLT CLUMP 1; Red Blood Count 4.32 X10*6/uL (4.20-5.50); Red Cell Distribution Width 13.3 % (11.0-16.0); Retic HGB Equivalent 32.6 pg (30.0-35.0); Reticulocytes Absolute 0.042 X10*6/uL (0.026-0.095); SCAN SMEAR FLAG 1; White Blood Count 6.5 X10*3/uL (4.8-10.8)
[2023-04-08 10:05] LABS: Alanine Aminotransferase 23 U/L (0-31); Albumin Level 3.3 g/dL (3.5-5.0); Alkaline Phosphatase 79 U/L (39-117); Anion Gap 10 (12-20); Aspartate Amino Transferase 33 U/L (5-31); Bilirubin Total 0.3 mg/dL (0.0-1.0); Blood Urea Nitrogen 12 mg/dL (9-16); C Reactive Protein 0.34 mg/dL (< or = 0.50); Calcium 9.8 mg/dL (8.4-10.2); Carbon Dioxide 26 mmol/L (22-29); Chloride 105 mmol/L (96-108); Cholesterol 127 mg/dL (<200); Estimated Glomerular Filt Rate > 60; Glucose Random 87 mg/dL (60-115); HDL Cholesterol 33 mg/dL (>40); Iron 46 mcg/dL (30-160); LDL Cholesterol Calculated 77 mg/dL (<100); Percent Iron Saturation 23 % (15-50); Potassium 4.4 mmol/L (3.3-5.1); Sodium 137 mmol/L (135-145); Total Iron Binding Capacity 200 mcg/dL (228-428); Total Protein 10.6 g/dL (6.5-8.0); Triglycerides 85 mg/dL (<150); Unsaturated Iron Binding 154 ug/dL
[2023-04-08 10:13] LABS: Mean Platelet Volume 11.1 fL (9.4-12.3); Platelet Count 262 X10*3/uL (160-400)
[2023-04-08 10:17] LABS: SLIDE REVIEW VERIFIED
[2023-04-08 10:28] LABS: Ferritin 220 ng/mL (10-250); Free T4 (Free Thyroxine) 1.06 ng/dL (0.71-1.85); Thyroid Stimulating Hormone 1.71 uIU/mL (0.32-4.0)
[2023-04-08 10:29] LABS: Folate 14.8 ng/mL (> or = 4.0); Vitamin B12 940 pg/mL (200-900)
[2023-04-12 15:08] LABS: Immunoglobulin A 864 mg/dL (47-310)
== END 2023-04-08 07:15 | disposition home or self-care (01) ==
LOC: HO.LAB 07:14
PROVIDERS: Absent Provider Internal Medicine; PCP Internal Medicine; Visit Provider Internal Medicine Gastroenterology
DX: D50.0 Iron deficiency anemia secondary to blood loss (chronic) (principal); K62.5 Hemorrhage of anus and rectum; K64.8 Other hemorrhoids; K21.9 Gastro-esophageal reflux disease without esophagitis; K59.09 Other constipation; R10.9 Unspecified abdominal pain; E78.00 Pure hypercholesterolemia, unspecified
CPT/HCPCS: 36415; 80053; 80061; 82306; 82607; 82728; 82746; 82784; 83540; 84439; 84443; 85025; 85045; 86140; 99212

== ENCOUNTER 2023-04-30 07:27 | Outpatient (AMB) | payer OTHER, SELFPAY ==
--- NOTE | 2023-04-30 07:31 | MHC.OFFVIS ---
Intake Vital Signs 04/30/23 07:34 Height 5 ft 1 in Weight 127 lb BMI 24.0 BP 100/64 Blood Pressure Location Lt brachial Position Sitting Pulse 109 H Intake Visit Reasons: follow up Intake Note: Patient follow up for constipation. Patient cc: constipation with bloody BM due to the hemorrhoids, some problems swallowing the saliva. Roof Tile Layer Required: Yes Roof Tile Layer Name: Maya Watkins Accompanied by: Self / Same As Patient Allergies No Known Allergies [No Known Allergies*] Allergy (Verified 04/30/23 07:31) Medication List - Last Reconciled 04/30/23 by Marya Galvan MD acetaminophen (Tylenol Extra Strength) 500 mg PO Q6H PRN cyclobenzaprine 5 mg PO Q8H PRN 5 days ferrous sulfate 325 mg PO DAILY 90 days lidocaine 5% (Lidoderm) 1 patch topical DAILY PRN MDD remove after 12 hours zqhipcwae-tkhkgbvkztedci-pffy 3-2.5 % (7 gram) 1 appl [place] BID naproxen 500 mg PO BID PRN 10 days omeprazole 10 mg PO DAILY trazodone 50 mg PO BEDTIME PRN HPI follow up HPI Details GI clinic visit for this 47-year-old [place]alese-speaking female for follow-up of abdominal pain and diarrhea. ? ??CHRONIC ILLNESSES:?GERD, menometrorrhagia ?LABS IN [facility]:?07/21/19 Normal CBC with mild anemia and mildly elevated transaminases. ? 12/14 celiac serologies were negative. ?IMAGING STUDIES 07/24/[address] scan showed: ? 1. There is a continued stable appearance of a of liv mesentery, of ? with nonpathologically enlarged mesenteric lymph nodes. Please note ? differential considerations on prior report. 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 ? 2. No bowel obstruction, free intracranial air abscess is seen. No ? focal bowel wall thickening. No appendicitis or diverticulitis is seen. ? 3. The gallbladder is surgically absent. ? 4. There is diminished, minimal nonspecific free fluid within the right hemipelvis. ? 5. There is mild degenerative disc disease redemonstrated at L4-L5. ?04/20/[address] scan showed: ? 1. Subtle fat stranding of the central mesentery with numerous nonpathologically enlarged lymph node is seen, a liv mesentery appearance. This has a broad differential which includes mesenteric adenitis. Enteritis is a further differential possibility, although no focal bowel wall thickening is presently noted on this examination ? performed without the benefit of oral contrast. It has been described with lymphoma although typically there is a history of lymphoma or evidence of lymphadenopathy elsewhere, not seen on this patient. In ? the absence of symptoms, it is of uncertain etiology or clinical significance. If there is continued clinical concern, a follow-up CT scan could be obtained in 3-6 months. ? 2. No bowel obstruction, free intraperitoneal air or abscess is seen. This no appendicitis or diverticulitis. ? 3. The gallbladder is surgically absent. ? 4. There is a small amount of free fluid within the dependent pelvis. A small right ovarian cyst is suspected. These findings could be more fully evaluated with dedicated pelvic ultrasound, if clinically indicated. ? 5. There is mild degenerative disc disease at L4-L5. ?09/2018 UGI showed: ? IMPRESSION: ? Prominent gastroesophageal reflux with slow clearing to the level of ? the thoracic inlet. ? Findings consistent with antral gastritis and duodenitis. Question duodenal bulb ulcer. ?ENDOSCOPIC STUDIES: 11/2018 EGD SHOWED: ? ESOPHAGUS: Mild esophagael motility disorder ? STOMACH: Hemorrhagic gastritis with prominent gastric folds ? Plan: ? Continue present medications (Omeprazole at 20 mg PO once daily) ? Patient has an appointment on 01/13/19 in the GI Clinic with Marya Galvan M.D ? BIOPSIES SHOWED: ? A. Small bowel, biopsy: Small bowel mucosa with no significant histopathology; no ? villous abnormality identified; no increase in intraepithelial lymphocytes. ? B. Stomach, antrum, biopsy: Moderate chronic, inactive gastritis; Helicobacter pylori organisms seen. ? C. Stomach, folds, biopsy: Moderate chronic, inactive gastritis; no Helicobacter pylori organisms seen. ?04/2019 COLONOSCOPY SHOWED: ? Patchy erythema with a few 2-3 mm aphthoid ulcers in the cecum - random biopsies were obtained from TI, right and left colon. ? Moderate hemorrhoids on retroflexed exam. ? Plan: ? Continue present medications (Omeprazole at 20 mg PO once daily) ? Repeat Colonoscopy interval based on path results in 3-5 years if ? polyps are adenomatous and 10 years if polyps are hyperplastic. ? BIOPSIES SHOWED: ? A. Terminal ileum, biopsies: Terminal ileum mucosa with mildly increased lamina propria chronic inflammation, non-specific; no active inflammation; negative for dysplasia/malignancy. ? B. Colon, right, biopsies: Mild chronic colitis; negative for dysplasia/malignancy. ? C. Colon, left, biopsies: Mild chronic colitis; negative for dysplasia/malignancy. ?TODAY'S VISIT Telephone Account Liaison,?Shane # [id number] Doing OK - still has constipation and has a BM every 3 days Abd pain is controlled and continues to have rectal bleeding every time she has a BM PAST VISIT: Pt complains of abdominal pain started last wed and wednesday Pain stopped on Wednesday BM was very hard and pain improved when she started having diarrhea Recurrent pain and Wed and started having diarrhea. hemorrhoids start popping out when she strains to have a BM. Also notes intermittent bleeding. Lab tests reviewed - IBD serologies positive for Crohn's disease and fecal calprotectin was > 500 (pt had Salmonella infection) Appetite is low - hardly eating anything. Did not have labs done since she has been very depressed and not leaving her house. Has been feeling very hot. Abdominal pain and constipation are better. Rectal bleeding is better. Still has some rectal bleeding when she goes to the bathroom - when she has hard stools. Did not get topical treatment for hemorrhoids - pharmacy told her it needed a PA. Has been using OTC hemorrhoidal creams and they have not been helpful Pt advised to start iron pills for anemia and have labs checked in 4 weeks. Labs show chronic anemia - of note pt is status post hysterectomy 3-4 yrs ago. Patient cc: abdominal bloating, constipation and acid reflex on and off is much better with medication. Patient said the pharmacy never gave her the Hemorrhoids ointment. When she does have a BM she does still see some blood as well. She states that she took a picture with the blood in the toilet. ?Unable to have a BM for the past 3 days - she was able to go today Taking a fibre pill and does not think its helping a lot. Using hemorrhoid cream one to two times daily. Taking Miralax once a day. Constipation has been better since her last visit to the ED. Abdominal pain is better and denies diarrhea. Has eliminated certain foods due to the pain. No problems with hemorrhoids since her last ER visit - using HC with Lidocaine cream prn. ? ?I had not had any abdominal pain for 2 weeks until yesterday 11:40 in the am. ? Pain came on suddenly. ? She was at [facility] and did not want to use the rest room. ? Went home and had an accident and pain gradually subsided around 1:30 pm. ? Did not eat any thing in the morning. ? Wt fluctuates - looses 3-5 lbs and then regains it PFSH Medical History (Updated 04/30/23 @ 07:58 by Marya Galvan MD) Abnormal CT scan, chest Hemorrhoids with complication Colon cancer screening Generalized abdominal pain Visual impairment Duodenal ulcer GERD (gastroesophageal reflux disease) Obesity (BMI 30-39.9) Menometrorrhagia Seizure in childhood Sclerosing mesenteritis GERD without esophagitis Surgical History Hx of colonoscopy Hx of cholecystectomy (~2005) Hx of hysterectomy Hx of section Family History Father No problems noted. Mother No problems noted. Daughter No problems noted. Son No problems noted. Brother Substance abuse Social History Household Members: Children Housing: Apartment Alcohol intake: never Patient Tobacco Use Status: Never used Tobacco e-Cigarette/Vaping Use: Never Used Second Hand Smoke Exposure: No Current occupational status: employed Current occupation: [employer] Cognitive needs: No Hearing needs: No Vision needs: No Review of Systems Const Denies fever(s), Denies headache(s) and Denies weight loss Eyes Denies eye discharge and Denies irritation ENT Reports Normal hearing present, Denies dysphagia, Denies dizziness and Denies headache(s) Card Denies chest pain, Denies leg edema and Denies dyspnea on exertion Resp Denies cough, Denies dyspnea on exertion and Denies wheezing GI Denies abdominal pain, Denies change in bowel habits, Denies dysphagia and Denies heartburn Denies difficulty voiding and Denies dysuria Musc Denies back pain and Denies arthralgias Skin/Breast Denies pruritus, Denies rash and Denies jaundice Neuro Reports Normal hearing present, Denies Abnormal speech present, Denies dizziness, Denies headache(s) and Denies seizure-like activity Psych Denies anxiety, Denies depression and Denies panic attacks Endo Denies cold intolerance, Denies flushing and Denies heat intolerance Remy/Lymph Denies easy bleeding and Denies easy bruising Aller/Immun Denies wheezing Physical Exam Vital Signs: Last Vital Signs Pulse 109 H 04/30/23 07:34 BP 100/64 04/30/23 07:34 BMI result Body Mass Index 24.0 Const General: healthy appearing and no acute distress Nutritional Appearance: average body habitus Orientation/consciousness: patient oriented x3 Limitations: language barrier HEENT Head: Yes normal to inspection Ears: hearing grossly normal bilaterally Eyes Sclerae: sclerae normal Pupils: Equal, round and reactive pupils present Neck Neck: Yes normal visual inspection Chest Chest palpation & inspection: normal inspection of the chest Resp Effort & Inspection: normal respiratory effort Auscultation: clear to auscultation bilaterally Cardio Palpation: normal PMI Rate: regular rate Rhythm: regular rhythm Heart sounds: S1 normal heart sound present, S2 normal heart sound present and no murmurs GI Palpation (GI): Soft to palpation, nontender and No hepatosplenomegaly present Auscultation: normal bowel sounds Rectal Exam - Female: deferred Skin General skin exam: no rashes or lesions noted Neuro General: patient oriented x3, gait normal and moves all extremities Cranial nerves: Yes Equal, round and reactive pupils present and Yes Normal hearing present Speech: No Abnormal speech present Psych Appearance: grossly normal Mental Status: mental status grossly normal Assessment & Plan Assessment & Plan (1) Abdominal pain: Code(s): R10.9 - Unspecified abdominal pain (2) Iron deficiency anemia due to chronic blood loss: Code(s): D50.0 - Iron deficiency anemia secondary to blood loss (chronic) (3) Rectal bleeding: Code(s): K62.5 - Hemorrhage of anus and rectum (4) GERD (gastroesophageal reflux disease): Code(s): K21.9 - Gastro-esophageal reflux disease without esophagitis Qualifiers: Esophagitis presence: without esophagitis Qualified Code(s): K21.9 - Gastro-esophageal reflux disease without esophagitis (5) Chronic constipation: Code(s): K59.09 - Other constipation (6) 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 Labs revealed elevated sed rate of 71, a normal CRP of 0.27. Celiac serologies showed normal TTG IgA, mild increase in antigliadin antibody IgA 27. Iron studies revealed a ferritin of 32. Her symptoms are likely a combination of diarrhea predominent IBS and sclerosing mesenteritis. UGI showed possible ulcer in duodenal bulb. EGD showed Mild esophageal motility disorder, Hemorrhagic gastritis with prominent gastric folds, no ulcer noted in the duodenum. Biopsies were positive for H pylori. Patient was treated with triple therapy for H pylori gastritis(clarithromycin, amoxicillin for 10 days) and advised to resume dicyclomine for IBS. Patient had acute onset of abdominal pain with diarrhea and stool studies are positive for Salmonella infection which resolved without treatment. 05/17 Colonoscopy showed Patchy erythema with a few 2-3 mm aphthoid ulcers. Random biopsies were obtained from TI, right and left colon which showed mild chronic colitis- likely related to Salmonella infection; negative for dysplasia/malignancy. Repeat screening colonoscopy was advised in 5 years for follow-up of colitis (due 04/2025). Abdominal pain has improved. Patient complains of constipation with intermittent hemorrhoids.? She was advised to increase water and fluid intake and use senna 2 to 3 times a week p.r.n. Repeat labs to follow up on mild anemia and elevated LFTs in past - repeat LFTs were normal. Pt advised to start iron pills for anemia and have labs checked in 4 weeks. 12/17/22 Pt advised to schedule an EGD and a colonoscopy (recurrent SIOBHAN anemia and FU on colitis seen on past colon). Pt to return to the lab for lab tests ordered by Dr Garcia. 04/09/23 - labs showed resolution of anemia and elevated Ig A of 864 - pt referred to Heme Onc for evaluation EGD and colon scheduled on 06/18/23 Follow-up appointment in 4 months Orders: Referrals Hematology & Oncology Referral D47.2 - Monoclonal gammopathy Medications: New sennosides-docusate sodium 8.6-50 mg (Senna Plus) 2 tab-caps (2 x 8.6-50 mg) PO BEDTIME 60 days 120 caps 1RF K59.09 - Other constipation Refilled ferrous sulfate 325 mg PO DAILY 90 days 90 tabs 2RF D50.0 - Iron deficiency anemia secondary to blood loss (chronic) Coding Level of Care Code Est Pt Level 3 (77189) Diagnoses Abdominal pain R10.9 Iron deficiency anemia due to chronic blood loss D50.0 Rectal bleeding K62.5 Gastroesophageal reflux disease without esophagitis K21.9 Esophagitis presence: without esophagitis Chronic constipation K59.09 IgA gammopathy D47.2 Time Spent (min) 18
[2023-04-30 07:34] VITALS: BP 100/64; PULSE 109; BMI 24.0
== END 2023-04-30 08:13 | disposition home or self-care (01) ==
PROVIDERS: PCP Internal Medicine; Visit Provider Internal Medicine Gastroenterology
DX: R10.9 Unspecified abdominal pain (principal); D50.0 Iron deficiency anemia secondary to blood loss (chronic); K62.5 Hemorrhage of anus and rectum; K21.9 Gastro-esophageal reflux disease without esophagitis; K59.09 Other constipation; D47.2 Monoclonal gammopathy
CPT/HCPCS: 99213

== ENCOUNTER → 2023-04-30 07:27 | Outpatient (BNVA) | payer OTHER, SELFPAY | PROVIDERS: PCP Internal Medicine; Visit Provider Internal Medicine Gastroenterology | DX: K59.09 Other constipation (principal); K21.9 Gastro-esophageal reflux disease without esophagitis; K62.5 Hemorrhage of anus and rectum; D50.0 Iron deficiency anemia secondary to blood loss (chronic); D47.2 Monoclonal gammopathy; R10.9 Unspecified abdominal pain | CPT/HCPCS: 99212 ==

== ENCOUNTER → 2023-05-25 10:59 | Outpatient (BNV) | payer OTHER, SELFPAY | PROVIDERS: PCP Internal Medicine; Referring Provider Internal Medicine Gastroenterology; Visit Provider Internal Medicine | DX: D47.2 Monoclonal gammopathy (principal) | CPT/HCPCS: 99204; 99213 ==

== ENCOUNTER 2023-06-18 12:32 | Day surgery (SDC) | payer OTHER, SELFPAY ==
--- NOTE | 2023-06-17 13:20 | P.CONAN_ITS ---
Documented by User: Yamile Haney NP 06/17/23 13:22 HPI - Anesthesia Eval Consult details Narrative: 47yo F for Upper Endoscopy and Colonoscopy PMFSH Active Problems Active Problems: All Active Problems (Updated 05/25/23 @ 14:37 by Yasmine Harden MD) IgA gammopathy (Acute) Abdominal pain (Acute) Insomnia (Acute) Iron deficiency anemia due to chronic blood loss (Acute) Rectal bleeding (Acute) ILD (interstitial lung disease) (Acute) Generalized anxiety disorder (Acute) Multiple pulmonary nodules (Acute) Hemorrhoids with complication (Acute) Rosacea (Acute) Breast cancer screening by mammogram (Acute) Overweight (BMI 25.0-29.9) (Acute) Annual physical exam (Acute) GERD (gastroesophageal reflux disease) (Acute) Chronic constipation (Acute) Left ovarian cyst (Acute) Past Medical History Medical History Abnormal CT scan, chest Hemorrhoids with complication Colon cancer screening Generalized abdominal pain Visual impairment Duodenal ulcer GERD (gastroesophageal reflux disease) Obesity (BMI 30-39.9) Menometrorrhagia Seizure in childhood Sclerosing mesenteritis GERD without esophagitis Family History Family History Father No problems noted. Mother No problems noted. Daughter No problems noted. Son No problems noted. Brother Substance abuse Surgical History Surgical History Hx of colonoscopy Hx of cholecystectomy (~2005) Hx of hysterectomy Hx of section Social History Social History Household Members: Children Housing: Apartment Alcohol intake: never Patient Tobacco Use Status: Never used Tobacco e-Cigarette/Vaping Use: Never Used Second Hand Smoke Exposure: No Use of substances other than those prescribed or required for medical reasons: No Are you DNR?: No Advance Directives: No Advance Directives Information Provided: Yes service: No Current occupational status: employed and unemployed Current occupation: [employer] Cognitive needs: No Hearing needs: No Vision needs: No Meds Allergies Allergy/AdvReac Type Severity Reaction Status Date / Time No Known Allergies Allergy Verified 06/18/23 12:43 [No Known Allergies*] Home Medications Medication Instructions Recorded Confirmed Last Taken Type parrnabxx-qvhrligcmungmg-envj vera 1 appl MI BID 04/07/22 06/16/23 Unknown History 3 %-2.5 % (7 gram) rectal kit Exam Pertinent Lab Results Pertinent Lab Results: Laboratory Tests 04/08/23 08:47 WBC 6.5 Hgb 11.9 L Hct 37.1 Plt Count 262 Sodium 137 Potassium 4.4 Chloride 105 Carbon Dioxide 26 BUN 12 Creatinine 0.67 Assessment and Plan Assessment Anesthesia Assessment: Chart Reviewed Documented by User: Bebeto Montesinos MD 06/18/23 13:22 PMF Past Medical History Medical History Abnormal CT scan, chest Hemorrhoids with complication Colon cancer screening Generalized abdominal pain Visual impairment Duodenal ulcer GERD (gastroesophageal reflux disease) Obesity (BMI 30-39.9) Menometrorrhagia Seizure in childhood Sclerosing mesenteritis GERD without esophagitis Family History Family History Father No problems noted. Mother No problems noted. Daughter No problems noted. Son No problems noted. Brother Substance abuse Family history of problems with anesthesia: No Surgical History Surgical History Hx of colonoscopy Hx of cholecystectomy (~2005) Hx of hysterectomy Hx of section History of Problems with Anesthesia: No Social History Social History Household Members: Children Housing: Apartment Alcohol intake: never Patient Tobacco Use Status: Never used Tobacco e-Cigarette/Vaping Use: Never Used Second Hand Smoke Exposure: No Use of substances other than those prescribed or required for medical reasons: No Are you DNR?: No Advance Directives: No Advance Directives Information Provided: Yes service: No Current occupational status: employed and unemployed Current occupation: [employer] Cognitive needs: No Hearing needs: No Vision needs: No Meds Allergies Allergy/AdvReac Type Severity Reaction Status Date / Time No Known Allergies Allergy Verified 06/18/23 12:43 [No Known Allergies*] Home Medications Medication Instructions Recorded Confirmed Last Taken Type bqysblzvs-hqqclhohfdmtmp-gpjq vera 1 appl [place] BID 04/07/22 06/16/23 Unknown History 3 %-2.5 % (7 gram) rectal kit Exam Airway Mallampati Class: II TM Dist: >3cm Neck ROM: Full Heart: rrr Lungs: cta Assessment and Plan Assessment Anesthesia Assessment: Anesthesia Plan Discussed Final Anesthetic Review Family History of Problems with Anesthesia: No History of Problems with Anesthesia: No NPO: Yes ASA Class: II Final Preanesthetic Review: No Changes in Pt Med Stat, Meds/Allgs Chart Reviewed, Consent Obtained/Reviewed and Anes Risks/Benef Reviewed Patient Risk: Intermediate Procedure Risk: Intermediate Anesthetic Plan Anesthetic Plan: MAC: and Agree w/ Assess. and Plan Disposition: Standard PACU
[2023-06-18] VITALS (7 sets, daily range): BP systolic 80–102; BP diastolic 46–74; PULSE 88–103; RESP 16–26; TEMP 36.2–36.5; O2SAT 95–98; BMI 23.8
[2023-06-18] MEDS: Lactated Ringers 1,000 ML 100 ML IVCONT (12:56)
--- NOTE | 2023-06-18 14:16 | PC.NURSE ---
Care transitioned to Jeimy RN (PACU).
--- NOTE | 2023-06-18 14:43 | MHC.SHP ---
Pre-Procedural Eval Section A Date of Service: 06/18/23 The patient is an INPATIENT: No The History & Physical has been completed within 30 days and I have reviewed it.: No Section B Chief Complaint: screening, FU of colitis, SIOBHAN Relevant Family History (Specify if Yes): No Relevant Social History: None Present Medications: see Short Stay Collaborative assessment Medical History: Significant History (Abnormal CT scan, chest Hemorrhoids with complication Colon cancer screening Generalized abdominal pain Visual impairment Duodenal ulcer GERD (gastroesophageal reflux disease) Obesity (BMI 30-39.9) Menometrorrhagia Seizure in childhood Sclerosing mesenteritis GERD without esophagitis) History of Previous Operations: Relevant previous surgery/procedure and date(s) (Hx of colonoscopy Hx of cholecystectomy (~2005) Hx of hysterectomy Hx of section) Allergies: Allergies Allergy/AdvReac Type Severity Reaction Status Date / Time No Known Allergies Allergy Verified 06/18/23 12:43 [No Known Allergies*] Review of Systems Sugical H&P ROS: Negative: Constitution, Cardiovascular, Respiratory and Gastrointestinal Exam Surgical H&P Exam: Normal: Heart, Normal: Lungs, Normal: Extremities and Normal: Abdomen Plan Diagnosis/Plan: Unchanged I have reviewed the history and physical and performed a pertinent physical examination on my patient. No changes have occurred unless specified. Time Spent With Patient Time: Total time managing care of this patient today ____ minutes.
--- NOTE | 2023-06-18 15:52 | W.PM.OPN ---
Operative Note Operative Note Date of Service: 06/18/23 Narrative: FLEXIBLE TRANSORAL UPPER GASTROINTESTINAL ENDOSCOPY WITH BIOPSIES AND COLONOSCOPY TILL CECUM WITH BIOPSIES AND SNARE POLYPECTOMY Pre-op diagnosis: Colon cancer screening, follow-up of colitis, iron deficiency anemia Post-op diagnosis: Gastritis, colon polyp, diverticulosis, hemorrhoids? Endoscopist:? Marya Galvan MD Anesthesia:?MAC UPPER ENDOSCOPY Consent: Indications for the procedure and potential complications of bleeding, perforation, reaction to medications and missed diagnosis were discussed with the patient and informed consent was obtained. Instrument: Olympus GIF H 190 mid size upper endoscope Monitoring: Vital signs and clinical assessment, continuous EKG monitoring, Pulse oximetry, Carbon Dioxide monitoring and blood pressure monitoring were done throughout the procedure. Procedure: The patient was placed in the left lateral decubitis position and pre-procedure medications were administered and a bite block was placed. The endoscope was inserted into the mouth and advanced under direct vision to the third part of duodenum. A careful inspection was made as the upper endoscope was withdrawn including a retroflexed examination of the proximal stomach; Findings and interventions are described below. Findings: Larynx: Normal Esophagus: GE junction at 35 cms. No esophagitis or Alex's. Stomach: Moderate diffuse gastric erythema. Biopsies were obtained from the antrum and body of the stomach. Grade 2 flap valve on retroflexed examination of the cardia. Duodenum: Normal bulb and descending duodenum. Biopsies were obtained from 3rd part of the duodenum to check for celiac sprue Intervention: Biopsies as noted above COLONOSCOPY PROCEDURE NOTE Consent: Indications for the procedure and potential complications of bleeding, perforation, reaction to medications and missed diagnosis were discussed with the patient and informed consent was obtained. Instrument: Olympus PCF H 190 L variable stiffness pediatric colonoscope Monitoring: Vital signs and clinical assessment, intermittent blood pressure monitoring, continuous EKG monitoring, Pulse oximetry and Carbon Dioxide monitoring were done throughout the procedure. Colon withdrawl time was 29 minutes. Procedure: The patient was placed in the left lateral decubitis position and pre-procedure medications were administered. After a digital rectal examination of the ano-rectum, the video colonoscope was inserted into the rectum and advanced through the colon to the cecum. The colonoscope was slowly withdrawn in a retrograde panoramic fashion and the colon mucosa was carefully examined including a retroflexed view of the rectum. Findings and interventions are described below. Procedure Difficulty: Colon was long and tortuous and there was recurrent loop formation. Narrowing of the sigmoid colon due to severe diverticulosis Findings: Terminal Ileum: Distal 5 cms was examined and appeared normal. Random biopsies were obtained. Cecum: A 7-8 mm sessile polyp adjacent to the appendical orifice - removed with a cold snare Ascending Colon: Patchy erythema throughout the entire colon - random biopsies were obtained. Transverse Colon: Patchy erythema throughout the entire colon - random biopsies were obtained. Descending Colon: Patchy erythema throughout the entire colon - random biopsies were obtained. Moderate diverticulosis Sigmoid Colon: Severe diverticulosis with edematous and erythematous folds Rectum: Edematous rectal mucosa with patchy erythema - random biopsies were obtained to check for proctitis Ano-rectum: Moderate internal hemorrhoids and perianal skin tag Colon preparation: Good in the right and transverse colon after copious irrigation Fair to poor in the left colon due to a undigested vegetable matter which could not be suction Impression and Post Procedure Diagnosis: Endoscopy Findings: STOMACH: Moderate diffuse gastritis DUODENUM: Normal - biopsied to check for celiac sprue Colonoscopy Findings: One small polyp removed Moderate to severe diverticulosis seen in the left colon with edematous and erythematous folds Moderate hemorrhoids on retroflexed exam. Plan: Await pathology results Patient has an appointment on 07/01/23 in the GI Clinic with Marya Galvan M.D. Repeat Colonoscopy interval based on path results - in 1-2 years if polyps are adenomatous and due to fair prep in the left colon. Above findings were reviewed with the patient and Gastritis, colon polyps and diverticulosis handouts were given in the discharge area BIOPSIES SHOWED: A. Small bowel, biopsy: Duodenal/small bowel mucosa with preserved villi and no specific change. B. Gastric antrum, biopsy: Chronic gastritis with minimal activity and foveolar hyperplasia; negative for H pylori, granulomas, intestinal metaplasia and dysplasia. C. Gastric body, biopsy: Chronic gastritis with focal gland atrophy; negative for H pylori, granulomas, intestinal metaplasia and dysplasia. D. Terminal ileum, biopsy: Ileal mucosa with no specific change. E. Colon, cecal polyp: Colonic mucosa with focal active colitis; negative for regenerative changes and granulomas (see comment). F. Colon, left, biopsy: Colonic mucosa with mild nonspecific increase in chronic inflammation without activity or regenerative changes; negative for granulomas and dysplasia. G. Colon, left, biopsy: Colonic mucosa with lymphoid aggregates and no specific change; no regenerative changes, granulomas or dysplasia. H. Colon, sigmoid, biopsy: Colonic mucosa with lymphoid aggregates and no specific change; no regenerative changes, granulomas or dysplasia. I. Colon, rectum, biopsy: Colonic mucosa with mild nonspecific increase in chronic inflammation without activity or significant regenerative changes; negative for granulomas and dysplasia. Comment: (E): No adenomatous dysplasia seen on initial levels; additional deeper levels pending; Many of the biopsies show chronic inflammation that may be related to the patient's history of Crohn's disease (? treated); clinical correlation is necessary
== END 2023-06-18 17:37 | disposition home or self-care (01) ==
PROVIDERS: PCP Internal Medicine; Visit Provider Internal Medicine Gastroenterology
PROC: (CPT 45385; principal; 2023-06-18 15:50)
DX: Z12.11 Encounter for screening for malignant neoplasm of colon (principal); K63.5 Polyp of colon; K57.30 Diverticulosis of large intestine without perforation or abscess without bleeding; K64.8 Other hemorrhoids; K64.4 Residual hemorrhoidal skin tags; K59.09 Other constipation; K65.4 Sclerosing mesenteritis; K52.89 Other specified noninfective gastroenteritis and colitis; K29.50 Unspecified chronic gastritis without bleeding; K26.9 Duodenal ulcer, unspecified as acute or chronic, without hemorrhage or perforation; K21.9 Gastro-esophageal reflux disease without esophagitis; D50.9 Iron deficiency anemia, unspecified; Z79.1 Long term (current) use of non-steroidal anti-inflammatories (NSAID); Z79.899 Other long term (current) drug therapy; Z90.49 Acquired absence of other specified parts of digestive tract
CPT/HCPCS: 45385; 45380; 43239; 88305; 88342; J2704

== ENCOUNTER → 2023-06-18 12:32 | Outpatient (BNV) | payer OTHER, SELFPAY | PROVIDERS: PCP Internal Medicine; Visit Provider Internal Medicine Gastroenterology | DX: Z12.11 Encounter for screening for malignant neoplasm of colon (principal); K63.5 Polyp of colon; K57.90 Diverticulosis of intestine, part unspecified, without perforation or abscess without bleeding; D50.9 Iron deficiency anemia, unspecified; K29.70 Gastritis, unspecified, without bleeding | CPT/HCPCS: 43239; 45380; 45385 ==

== ENCOUNTER 2023-07-01 08:10 | Outpatient (AMB) | payer OTHER, SELFPAY ==
--- NOTE | 2023-07-01 08:17 | MHC.OFFVIS ---
Intake Vital Signs 07/01/23 08:19 Height 5 ft 1 in Weight 125 lb BMI 23.6 BP 101/59 L Blood Pressure Location Lt brachial Position Sitting Pulse 100 Intake Visit Reasons: S/p egd/colon Intake Note: Patient follow up for EGD/Colonoscopy screening. Patient denies any GI issues. Continuous Process Coffee Roaster Required: Yes Continuous Process Coffee Roaster Name: [facility] Accompanied by: Self / Same As Patient Allergies No Known Allergies [No Known Allergies*] Allergy (Verified 07/01/23 08:16) Medication List - Last Reconciled 07/01/23 by Marya Galvan MD acetaminophen (Tylenol Extra Strength) 500 mg PO Q6H PRN cyclobenzaprine 5 mg PO Q8H PRN 5 days ferrous sulfate 325 mg PO DAILY 90 days lidocaine 5% (Lidoderm) 1 patch topical DAILY PRN MDD remove after 12 hours ytoqzsyfe-pkgyibvsbgzdil-wqnw 3-2.5 % (7 gram) 1 appl [place] BID naproxen 500 mg PO BID PRN 10 days omeprazole 10 mg PO DAILY sennosides-docusate sodium 8.6-50 mg (Senna Plus) 2 tab-caps (2 x 8.6-50 mg) PO BEDTIME 60 days trazodone 50 mg PO BEDTIME PRN HPI S/p egd/colon HPI Details GI clinic visit for this 47-year-old Syriac-speaking female for follow-up of abdominal pain and diarrhea. ? ??CHRONIC ILLNESSES:?GERD, menometrorrhagia ?LABS IN [facility]:?07/21/19 Normal CBC with mild anemia and mildly elevated transaminases. ? 12/14 celiac serologies were negative. ?IMAGING STUDIES 07/24/[address] scan showed: ? 1. There is a continued stable appearance of a of liv mesentery, of ? with nonpathologically enlarged mesenteric lymph nodes. Please note ? differential considerations on prior report. 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 ? 2. No bowel obstruction, free intracranial air abscess is seen. No ? focal bowel wall thickening. No appendicitis or diverticulitis is seen. ? 3. The gallbladder is surgically absent. ? 4. There is diminished, minimal nonspecific free fluid within the right hemipelvis. ? 5. There is mild degenerative disc disease redemonstrated at L4-L5. ?04/20/[address] scan showed: ? 1. Subtle fat stranding of the central mesentery with numerous nonpathologically enlarged lymph node is seen, a liv mesentery appearance. This has a broad differential which includes mesenteric adenitis. Enteritis is a further differential possibility, although no focal bowel wall thickening is presently noted on this examination ? performed without the benefit of oral contrast. It has been described with lymphoma although typically there is a history of lymphoma or evidence of lymphadenopathy elsewhere, not seen on this patient. In ? the absence of symptoms, it is of uncertain etiology or clinical significance. If there is continued clinical concern, a follow-up CT scan could be obtained in 3-6 months. ? 2. No bowel obstruction, free intraperitoneal air or abscess is seen. This no appendicitis or diverticulitis. ? 3. The gallbladder is surgically absent. ? 4. There is a small amount of free fluid within the dependent pelvis. A small right ovarian cyst is suspected. These findings could be more fully evaluated with dedicated pelvic ultrasound, if clinically indicated. ? 5. There is mild degenerative disc disease at L4-L5. ?09/2018 UGI showed: ? IMPRESSION: ? Prominent gastroesophageal reflux with slow clearing to the level of ? the thoracic inlet. ? Findings consistent with antral gastritis and duodenitis. Question duodenal bulb ulcer. ?ENDOSCOPIC STUDIES: 05/2023 EGD AND COLON SHOWED: Endoscopy Findings: STOMACH: Moderate diffuse gastritis DUODENUM: Normal - biopsied to check for celiac sprue Colonoscopy Findings: One small polyp removed Moderate to severe diverticulosis seen in the left colon with edematous and erythematous folds Moderate hemorrhoids on retroflexed exam. Plan: Repeat Colonoscopy interval based on path results - in 1-2 years if polyps are adenomatous and due to fair prep in the left colon. Above findings were reviewed with the patient and Gastritis, colon polyps and diverticulosis handouts were given in the discharge area BIOPSIES SHOWED: A. Small bowel, biopsy: Duodenal/small bowel mucosa with preserved villi and no specific change. B. Gastric antrum, biopsy: Chronic gastritis with minimal activity and foveolar hyperplasia; negative for H pylori, granulomas, intestinal metaplasia and dysplasia. C. Gastric body, biopsy: Chronic gastritis with focal gland atrophy; negative for H pylori, granulomas, intestinal metaplasia and dysplasia. D. Terminal ileum, biopsy: Ileal mucosa with no specific change. E. Colon, cecal polyp: Colonic mucosa with focal active colitis; negative for regenerative changes and granulomas (see comment). F. Colon, left, biopsy: Colonic mucosa with mild nonspecific increase in chronic inflammation without activity or regenerative changes; negative for granulomas and dysplasia. G. Colon, left, biopsy: Colonic mucosa with lymphoid aggregates and no specific change; no regenerative changes, granulomas or dysplasia. H. Colon, sigmoid, biopsy: Colonic mucosa with lymphoid aggregates and no specific change; no regenerative changes, granulomas or dysplasia. I. Colon, rectum, biopsy: Colonic mucosa with mild nonspecific increase in chronic inflammation without activity or significant regenerative changes; negative for granulomas and dysplasia. Comment: (E): No adenomatous dysplasia seen on initial levels; additional deeper levels pending; Many of the biopsies show chronic inflammation that may be related to the patient's history of Crohn's disease (? treated); clinical correlation is necessary 11/2018 EGD SHOWED: ? ESOPHAGUS: Mild esophagael motility disorder ? STOMACH: Hemorrhagic gastritis with prominent gastric folds ? Plan: ? Continue present medications (Omeprazole at 20 mg PO once daily) ? Patient has an appointment on 01/13/19 in the GI Clinic with Marya Galvan M.D ? BIOPSIES SHOWED: ? A. Small bowel, biopsy: Small bowel mucosa with no significant histopathology; no ? villous abnormality identified; no increase in intraepithelial lymphocytes. ? B. Stomach, antrum, biopsy: Moderate chronic, inactive gastritis; Helicobacter pylori organisms seen. ? C. Stomach, folds, biopsy: Moderate chronic, inactive gastritis; no Helicobacter pylori organisms seen. ?04/2019 COLONOSCOPY SHOWED: ? Patchy erythema with a few 2-3 mm aphthoid ulcers in the cecum - random biopsies were obtained from TI, right and left colon. ? Moderate hemorrhoids on retroflexed exam. ? Plan: ? Continue present medications (Omeprazole at 20 mg PO once daily) ? Repeat Colonoscopy interval based on path results in 3-5 years if ? polyps are adenomatous and 10 years if polyps are hyperplastic. ? BIOPSIES SHOWED: ? A. Terminal ileum, biopsies: Terminal ileum mucosa with mildly increased lamina propria chronic inflammation, non-specific; no active inflammation; negative for dysplasia/malignancy. ? B. Colon, right, biopsies: Mild chronic colitis; negative for dysplasia/malignancy. ? C. Colon, left, biopsies: Mild chronic colitis; negative for dysplasia/malignancy. ?TODAY'S VISIT [facility] [place] Maid,?Cheyanne EGD and colon results were reviewed with the patient Constipation is better - able to have a BM every 2 days Taking Ndiaye daily which is helping with constipation PAST VISIT: Doing OK - still has constipation and has a BM every 3 days Abd pain is controlled and continues to have rectal bleeding every time she has a BM Pt complains of abdominal pain started last wed and wednesday Pain stopped on Wednesday BM was very hard and pain improved when she started having diarrhea Recurrent pain and Wed and started having diarrhea. hemorrhoids start popping out when she strains to have a BM. Also notes intermittent bleeding. Lab tests reviewed - IBD serologies positive for Crohn's disease and fecal calprotectin was > 500 (pt had Salmonella infection) Appetite is low - hardly eating anything. Did not have labs done since she has been very depressed and not leaving her house. Has been feeling very hot. Abdominal pain and constipation are better. Rectal bleeding is better. Still has some rectal bleeding when she goes to the bathroom - when she has hard stools. Did not get topical treatment for hemorrhoids - pharmacy told her it needed a PA. Has been using OTC hemorrhoidal creams and they have not been helpful Pt advised to start iron pills for anemia and have labs checked in 4 weeks. Labs show chronic anemia - of note pt is status post hysterectomy 3-4 yrs ago. Patient cc: abdominal bloating, constipation and acid reflex on and off is much better with medication. Patient said the pharmacy never gave her the Hemorrhoids ointment. When she does have a BM she does still see some blood as well. She states that she took a picture with the blood in the toilet. ?Unable to have a BM for the past 3 days - she was able to go today Taking a fibre pill and does not think its helping a lot. Using hemorrhoid cream one to two times daily. Taking Miralax once a day. Constipation has been better since her last visit to the ED. Abdominal pain is better and denies diarrhea. Has eliminated certain foods due to the pain. No problems with hemorrhoids since her last ER visit - using HC with Lidocaine cream prn. ? ?I had not had any abdominal pain for 2 weeks until yesterday 11:40 in the am. ? Pain came on suddenly. ? She was at [facility] and did not want to use the rest room. ? Went home and had an accident and pain gradually subsided around 1:30 pm. ? Did not eat any thing in the morning. ? Wt fluctuates - looses 3-5 lbs and then regains it PFSH Medical History (Updated 07/01/23 @ 08:54 by Marya Galvan MD) Abnormal CT scan, chest Hemorrhoids with complication Colon cancer screening Generalized abdominal pain Visual impairment Duodenal ulcer GERD (gastroesophageal reflux disease) Obesity (BMI 30-39.9) Menometrorrhagia Seizure in childhood Sclerosing mesenteritis GERD without esophagitis Surgical History History of esophagogastroduodenoscopy (EGD) Hx of colonoscopy Hx of cholecystectomy (~2005) Hx of hysterectomy Hx of section Family History Father No problems noted. Mother No problems noted. Daughter No problems noted. Son No problems noted. Brother Substance abuse Social History Household Members: Children Housing: Apartment Alcohol intake: never Patient Tobacco Use Status: Never used Tobacco e-Cigarette/Vaping Use: Never Used Second Hand Smoke Exposure: No service: No Current occupational status: employed and unemployed Current occupation: [employer] Cognitive needs: No Hearing needs: No Vision needs: No Review of Systems Const All systems reviewed & are unremarkable except as noted in HPI and below Physical Exam Vital Signs: Last Vital Signs Pulse 100 07/01/23 08:19 BP 101/59 L 07/01/23 08:19 BMI result Body Mass Index 23.6 Const General: no acute distress Nutritional Appearance: average body habitus Orientation/consciousness: patient oriented x3 Limitations: language barrier HEENT Head: Yes normal to inspection Ears: hearing grossly normal bilaterally Mouth: Normal oral and palatal mucosa present Eyes Sclerae: sclerae normal Pupils: Equal, round and reactive pupils present Neck Neck: Yes normal visual inspection Chest Chest palpation & inspection: normal inspection of the chest Resp Effort & Inspection: normal respiratory effort Auscultation: clear to auscultation bilaterally Cardio Palpation: normal PMI Rate: regular rate Rhythm: regular rhythm Heart sounds: S1 normal heart sound present, S2 normal heart sound present and no murmurs GI Palpation (GI): Soft to palpation, nontender and No hepatosplenomegaly present Auscultation: normal bowel sounds Rectal Exam - Female: deferred Skin Rashes: rashes noted (maculopapular rash on face in butterfly distribution) Neuro General: patient oriented x3, gait normal and moves all extremities Cranial nerves: Yes Equal, round and reactive pupils present Psych Appearance: grossly normal Mental Status: mental status grossly normal Assessment & Plan Assessment & Plan (1) Abdominal pain: Code(s): R10.9 - Unspecified abdominal pain (2) Iron deficiency anemia due to chronic blood loss: Code(s): D50.0 - Iron deficiency anemia secondary to blood loss (chronic) (3) Rectal bleeding: Code(s): K62.5 - Hemorrhage of anus and rectum (4) GERD (gastroesophageal reflux disease): Code(s): K21.9 - Gastro-esophageal reflux disease without esophagitis Qualifiers: Esophagitis presence: without esophagitis Qualified Code(s): K21.9 - Gastro-esophageal reflux disease without esophagitis (5) Chronic constipation: Code(s): K59.09 - Other constipation (6) Crohn's disease of colon: Code(s): K50.10 - Crohn's disease of large intestine without complications Plan 47 year old Syriac-speaking female?with GERD, menometrorrhagia followed in GI clinic for post prandial generalized abdominal pain associated with diarrhea for the past 5 years when she moved from [place].? Labs revealed elevated sed rate of 71, a normal CRP of 0.27. Celiac serologies showed normal TTG IgA, mild increase in antigliadin antibody IgA 27. Iron studies revealed a ferritin of 32. Her symptoms are likely a combination of diarrhea predominent IBS and sclerosing mesenteritis. UGI showed possible ulcer in duodenal bulb. EGD showed Mild esophageal motility disorder, Hemorrhagic gastritis with prominent gastric folds, no ulcer noted in the duodenum. Biopsies were positive for H pylori. Patient was treated with triple therapy for H pylori gastritis(clarithromycin, amoxicillin for 10 days) and advised to resume dicyclomine for IBS. Patient had acute onset of abdominal pain with diarrhea and stool studies are positive for Salmonella infection which resolved without treatment. 05/17 Colonoscopy showed Patchy erythema with a few 2-3 mm aphthoid ulcers. Random biopsies were obtained from TI, right and left colon which showed mild chronic colitis- likely related to Salmonella infection; negative for dysplasia/malignancy. Repeat screening colonoscopy was advised in 5 years for follow-up of colitis (due 04/2025). Abdominal pain has improved. Patient complains of constipation with intermittent hemorrhoids.? She was advised to increase water and fluid intake and use senna 2 to 3 times a week p.r.n. Repeat labs to follow up on mild anemia and elevated LFTs in past - repeat LFTs were normal. Pt advised to start iron pills for anemia and have labs checked in 4 weeks. 12/17/22 Pt advised to schedule an EGD and a colonoscopy (recurrent SIOBHAN anemia and FU on colitis seen on past colon). Pt to return to the lab for lab tests ordered by Dr Garcia. 04/09/23 - labs showed resolution of anemia and elevated Ig A of 864 - pt referred to Heme Onc for evaluation 05/2023 EGD and colon was performed and findings as noted above 07/01/23 Pt advised to start mesalamine for Crohn's colitis Labs in 4 weeks Follow-up appointment in 3 month Orders: Orders Complete Blood Count Auto Diff Today K50.10 - Crohn's disease of large intestine without complications Creatinine Today K50.10 - Crohn's disease of large intestine without complications Hepatitis B Surface Antigen Today K50.10 - Crohn's disease of large intestine without complications Liver Panel Today K50.10 - Crohn's disease of large intestine without complications C Reactive Protein Today K50.10 - Crohn's disease of large intestine without complications Blood Urea Nitrogen Today K50.10 - Crohn's disease of large intestine without complications Medications: New mesalamine (Lialda) 2.4 grams (2 x 1.2 gram) PO DAILY 8 weeks 112 tabs 0RF Coding Level of Care Code Est Pt Level 4 (18278) Diagnoses Abdominal pain R10.9 Iron deficiency anemia due to chronic blood loss D50.0 Rectal bleeding K62.5 Gastroesophageal reflux disease without esophagitis K21.9 Esophagitis presence: without esophagitis Chronic constipation K59.09 Crohn's disease of colon K50.10 Time Spent (min) 20
[2023-07-01 08:19] VITALS: BP 101/59; PULSE 100; BMI 23.6
== END 2023-07-01 09:02 | disposition home or self-care (01) ==
PROVIDERS: PCP Internal Medicine; Visit Provider Internal Medicine Gastroenterology
DX: R10.9 Unspecified abdominal pain (principal); D50.0 Iron deficiency anemia secondary to blood loss (chronic); K62.5 Hemorrhage of anus and rectum; K21.9 Gastro-esophageal reflux disease without esophagitis; K59.09 Other constipation; K50.10 Crohn's disease of large intestine without complications
CPT/HCPCS: 99214

== ENCOUNTER → 2023-07-01 08:10 | Outpatient (BNVA) | payer OTHER, SELFPAY | PROVIDERS: PCP Internal Medicine; Visit Provider Internal Medicine Gastroenterology | DX: K21.9 Gastro-esophageal reflux disease without esophagitis (principal); K59.09 Other constipation; K50.10 Crohn's disease of large intestine without complications; D50.0 Iron deficiency anemia secondary to blood loss (chronic); R10.9 Unspecified abdominal pain; K62.5 Hemorrhage of anus and rectum | CPT/HCPCS: 99212 ==

== ENCOUNTER 2023-07-28 14:17 | Outpatient (REF) | payer OTHER, SELFPAY ==
[2023-07-28 15:12] LABS: Hemoglobin 11.3 g/dl (12.0-16.0); PLT CLUMP 1; Red Cell Distribution Width 13.9 % (11.0-16.0); SCAN SMEAR FLAG 1
[2023-07-28 15:14] LABS: Basophils Percent Auto 0.7 % (0-2); Eosinophils Percent Auto 0.5 % (0-4); Hematocrit 34.7 % (37.0-47.0); Imm Gran Abs Auto 0.02 X10*3/uL (0.00-0.03); Imm Gran Pct Auto 0.3 % (0.0-0.4); Lymphocytes Percent Auto 48.9 % (20-40); MANUAL DIFF FLAG SCAN; Mean Corpuscular HGB Conc 32.6 g/dl (31.0-35.0); Mean Corpuscular Volume 85.9 fL (80.0-98.0); Mean Platelet Volume 11.2 fL (9.4-12.3); Monocytes Absolute Auto 0.7 X10*3/uL (0.1-1.2); Monocytes Percent Auto 11.6 % (2-11); Neutrophils Absolute Auto 2.3 x10*3/uL (2.0-8.3); Red Blood Count 4.04 X10*6/uL (4.20-5.50)
[2023-07-28 15:32] LABS: SLIDE REVIEW VERIFIED; White Blood Count 6.1 X10*3/uL (4.8-10.8)
[2023-07-28 15:41] LABS: Alanine Aminotransferase 17 U/L (0-31); Alkaline Phosphatase 60 U/L (39-117); Aspartate Amino Transferase 30 U/L (5-31); Bilirubin Direct < 0.2 mg/dL (0.0-0.5); Bilirubin Total 0.2 mg/dL (0.0-1.0); Blood Urea Nitrogen 11 mg/dL (9-16); C Reactive Protein 0.32 mg/dL (< or = 0.50); Estimated Glomerular Filt Rate > 60; Total Protein 10.1 g/dL (6.5-8.0)
[2023-07-29 04:26] LABS: HBsAGNum1 0.37 S/CO (0.00-0.99); Hepatitis B Surface Antigen Negative (Negative)
== END 2023-07-28 14:18 | disposition home or self-care (01) ==
LOC: HO.LAB 14:17
PROVIDERS: PCP Internal Medicine; Visit Provider Internal Medicine Gastroenterology
DX: K50.10 Crohn's disease of large intestine without complications (principal)
CPT/HCPCS: 36415; 80076; 82565; 84520; 85025; 86140; 87340

== ENCOUNTER 2023-09-06 13:42 | Outpatient (AMB) | payer OTHER, SELFPAY ==
[2023-09-06 13:43] VITALS: BP 90/64; PULSE 107; O2SAT 94; BMI 22.9
--- NOTE | 2023-09-06 13:43 | A.OFFPC_ITS ---
Vital Signs 3 09/06/23 13:43 Height 5 ft 1 in Weight 121 lb 0.6 oz BMI 22.9 BP 90/64 Blood Pressure Location Lt brachial Position Sitting Pulse 107 H Pulse Source Pulse Oximeter Pulse Oximetry (%) 94 Oxygen Delivery Method Room Air Intake Visit Reasons: pe Imaging System Administrator Required: Yes Imaging System Administrator Language: Bahraini Allergies No Known Allergies [No Known Allergies*] Allergy (Verified 09/06/23 13:44) Medication List - Last Reconciled 09/06/23 by Nolberto Garcia MD acetaminophen (Tylenol Extra Strength) 500 mg PO Q6H PRN ferrous sulfate 325 mg PO DAILY 90 days lidocaine 5% (Lidoderm) 1 patch topical DAILY PRN MDD remove after 12 hours sazkaulsf-jasoaubqmvoitd-joja 3-2.5 % (7 gram) 1 appl GA BID mesalamine (Lialda) 2.4 grams (2 x 1.2 gram) PO DAILY metronidazole 1% (Metrogel) 1 appl topical BEDTIME omeprazole 10 mg PO DAILY sennosides-docusate sodium 8.6-50 mg (Senna Plus) 2 tab-caps (2 x 8.6-50 mg) PO BEDTIME 60 days trazodone 50 mg PO BEDTIME PRN Tobacco use date assessed: 09/06/23 Dental Screening Dental Screen Date: 09/06/23 Did you have a dental visit in the last 12 months?: No Did you have a dental problem in the last 6 months where you did not have access to dental care?: No HPI pe 2 HPI0 Details 47-year-old female with GERD interstitia l lung disease generalized anxiety disorder insomnia coming in for follow-up. Last seen in August 2022. Patient's colonoscopy is up-to-date May 2023 mammogram is due next month. She did see gastroenterology June. 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 [id number] rash on the face [facility] Medical History (Updated 09/06/23 @ 13:58 by Nolberto Garcia MD) Breast cancer screening by mammogram Overweight (BMI 25.0-29.9) Abnormal CT scan, chest Hemorrhoids with complication Colon cancer screening Generalized abdominal pain Visual impairment Duodenal ulcer GERD (gastroesophageal reflux disease) Obesity (BMI 30-39.9) Menometrorrhagia Seizure in childhood Sclerosing mesenteritis GERD without esophagitis Surgical History History of esophagogastroduodenoscopy (EGD) Hx of colonoscopy Hx of cholecystectomy (~2005) Hx of hysterectomy Hx of section Family History Father No problems noted. Mother No problems noted. Daughter No problems noted. Son No problems noted. Brother Substance abuse Social History Household Members: Children Housing: Apartment Alcohol intake: never Patient Tobacco Use Status: Never used Tobacco e-Cigarette/Vaping Use: Never Used Second Hand Smoke Exposure: No service: No Current occupational status: employed and unemployed Current occupation: [employer] Cognitive needs: No Hearing needs: No Vision needs: No Questionnaire Thrive Questionnaire Date Thrive assessed: 09/06/23 I am a: Patient What is your living situation today?: I have a steady place to live Within the past 12 months, did the food you bought not last and you didn't have the money to get more?: Never true Within the past 12 months, did you worry whether your food would run out before you got money to buy more?: Never true Do you have trouble paying for medicines?: No Do you have trouble getting transportation to medical appointments?: No Do you have trouble paying your heating and electricity bill?: No Do you have trouble taking care of your child, family member or friend?: No Do you have trouble with day-to-day activities such as bathing, preparing meals, shopping, managing finances, etc.?: No Are you currently unemployed and looking for a job?: No Are you interested in more education?: No Please select the resources that you would like help with: None THRIVE Score: 0 AUDIT C Alcohol Use Questionnaire (AUDIT-C) 1. How often do you have a drink containing alcohol?: Never 2. How many drinks containing alcohol do you have on a typical day when you are drinking?: 1 or 2 (0) 3. How often do you have six or more drinks on one occasion?: Never Total Score: 0 YSABEL-7 AMB Questionnaire YSABEL-7 Date YSABEL - 7 assessed: 09/06/23 Feeling nervous, anxious, or on edge: 0 = Not at all Not being able to stop or control worryin = Not at all Worrying too much about different things: 0 = Not at all Trouble relaxin = Not at all Being so restless that it is hard to sit still: 0 = Not at all Becoming easily annoyed or irritable: 0 = Not at all Feeling afraid as if something awful might happen: 0 = Not at all Total YSABEL-7 score (0-4 normal; 5-9 mild; 10-14 moderate; 15-21 severe): 0 Source: Developed by Drs. Jerod Grover, Heather Bennett, Georgi Contreras and colleagues, with an educational cristal from [employer]. Review of Systems Const Denies poor appetite and Denies weakness Eyes Denies no additional complaints ENT Reports Normal hearing present, Denies dizziness, Denies nasal congestion, Denies tinnitus and Denies sore throat Card Denies chest pain, Denies syncope, Denies rapid heart rate and Denies dyspnea Resp Denies cough and Denies dyspnea GI Denies change in stool character, Reports constipation, Denies diarrhea, Denies nausea and Denies vomiting Denies urinary frequency, Denies difficulty voiding and Denies dysuria Neuro Reports Normal hearing present, Denies confusion, Denies dizziness, Denies syncope and Denies weakness Psych Denies confusion Physical exam (Primary Care) Vital Signs: Last Vital Signs Pulse 107 H 09/06/23 13:43 BP 90/64 09/06/23 13:43 Pulse Ox 94 09/06/23 13:43 Oxygen Delivery Method Room Air 09/06/23 13:43 BMI result Body Mass Index 22.9 Tobacco/Smoking Status: Tobacco use Status Tobacco use date assessed 09/06/23 09/06/23 13:46 Patient Tobacco Use Status Never used Tobacco 09/06/23 13:46 e-Cigarette/Vaping Use Never Used 09/06/23 13:46 Thrive Assessment: Date of Thrive Assessment Date Thrive assessed 09/06/23 09/06/23 13:46 Const Other: Erythematous Papular rash on the face and forehead General: No confusion Orientation/consciousness: No confusion [facility] Head images: 2 1. Maculopapular rash scaly erythematous over both cheeks and some on the forehead 2. Neuro General: No confusion Cranial nerves: Yes Normal hearing present Assessment and Plan Assessment & Plan (1) Annual physical exam: Code(s): Z00.00 - Encounter for general adult medical examination without abnormal findings (2) GERD (gastroesophageal reflux disease): Code(s): K21.9 - Gastro-esophageal reflux disease without esophagitis Qualifiers: Esophagitis presence: without esophagitis Qualified Code(s): K21.9 - Gastro-esophageal reflux disease without esophagitis Plan: Avoid the foods that causes that usually spicy foods, tomato products, juices, coffee, soda and foods that your sensitive to. After eating do not lie down, allow 3-4 hours before in lie down. And keep the head of bed above 30 degrees to avoid the acid from going up. On omeprazole 10 mg once a day (3) ILD (interstitial lung disease): Code(s): J84.9 - Interstitial pulmonary disease, unspecified Plan: This is being followed up by Pulmonary and on last note since axymptomatic - monitor only (4) Generalized anxiety disorder: Code(s): F41.1 - Generalized anxiety disorder Plan: Continue with present medication (5) Crohn's disease of colon: Code(s): K50.10 - Crohn's disease of large intestine without complications Plan: Patient is being followed up by Gastroenterology had been placed on mesalamine (6) IgA gammopathy: Code(s): D47.2 - Monoclonal gammopathy Plan: Presently on iron and continue to monitor the blood count. (7) Rosacea: Code(s): L71.9 - Rosacea, unspecified Orders: Referrals 2 Dermatology Referral L71.9 - Rosacea, unspecified Medications: New 2 metronidazole 1% (Metrogel) 1 appl topical BEDTIME 60 grams 1RF L71.9 - Rosacea, unspecified Coding Level of Care Code Est Pt Prev Care 40-64y(29814) Diagnoses Annual physical exam Z00.00 Gastroesophageal reflux disease without esophagitis K21.9 Esophagitis presence: without esophagitis ILD (interstitial lung disease) J84.9 Generalized anxiety disorder F41.1 Crohn's disease of colon K50.10 IgA gammopathy D47.2 Rosacea L71.9
== END 2023-09-06 14:23 | disposition home or self-care (01) ==
PROVIDERS: Visit Provider Internal Medicine
DX: Z00.00 Encounter for general adult medical examination without abnormal findings (principal); E11.65 Type 2 diabetes mellitus with hyperglycemia; E11.9 Type 2 diabetes mellitus without complications; E78.9 Disorder of lipoprotein metabolism, unspecified; F41.1 Generalized anxiety disorder; Z11.3 Encounter for screening for infections with a predominantly sexual mode of transmission; B37.0 Candidal stomatitis
CPT/HCPCS: 83036; 99395; 99396

== ENCOUNTER 2023-10-07 11:02 | Outpatient (AMB) | payer OTHER, SELFPAY ==
--- NOTE | 2023-10-07 11:07 | MHC.OFFVIS ---
Intake Vital Signs 10/07/23 11:08 Height 5 ft 1 in Weight 120 lb BMI 22.7 BP 90/57 L Blood Pressure Location Lt brachial Position Sitting Respiration 17 Pulse 127 H Intake Visit Reasons: 3 month follow up Intake Note: patient follow up for abdominal pain and lab results Patient denies any GI issues. Refrigerator Repairman Required: Yes Refrigerator Repairman Name: Adelfo Vaca [id number] Accompanied by: Self / Same As Patient Allergies No Known Allergies [No Known Allergies*] Allergy (Verified 10/07/23 11:08) HPI 3 month follow up HPI Details GI clinic visit for this 47-year-old Chinese-speaking female for follow-up of abdominal pain and diarrhea. 06/16/23 Pt seen by Oncology for IgA gammopathy: This is 47-year-old woman with recently diagnosed Crohn's disease and multitude of gastrointestinal problems was noted to have elevated IgA level along with hypoalbuminemia and elevated total protein. She does not have significant anemia or renal dysfunction. No hypercalcemia. Serum protein electrophoresis was consistent with chronic inflammatory pattern. Serum immunofixation showed elevation all immunoglobulin levels, no monoclonal protein detected. Her ESR is elevated, elevated IgA and hyper paraproteinemia can be seen in inflammatory conditions such as Crohn's disease as well. No further hematological workup is necessary. For her facial rash/?rosacea, she was advised to follow-up with her PCP. ? ??CHRONIC ILLNESSES:?GERD, moshe-metrorrhagia ?LABS IN [facility]:?07/21/19 Normal CBC with mild anemia and mildly elevated transaminases. ? 12/14 celiac serologies were negative. ?IMAGING STUDIES 07/24/[address] scan showed: ? 1. There is a continued stable appearance of a of liv mesentery, of ? with nonpathologically enlarged mesenteric lymph nodes. Please note ? differential considerations on prior report. 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 ? 2. No bowel obstruction, free intracranial air abscess is seen. No ? focal bowel wall thickening. No appendicitis or diverticulitis is seen. ? 3. The gallbladder is surgically absent. ? 4. There is diminished, minimal nonspecific free fluid within the right hemipelvis. ? 5. There is mild degenerative disc disease redemonstrated at L4-L5. ?04/20/[address] scan showed: ? 1. Subtle fat stranding of the central mesentery with numerous nonpathologically enlarged lymph node is seen, a liv mesentery appearance. This has a broad differential which includes mesenteric adenitis. Enteritis is a further differential possibility, although no focal bowel wall thickening is presently noted on this examination ? performed without the benefit of oral contrast. It has been described with lymphoma although typically there is a history of lymphoma or evidence of lymphadenopathy elsewhere, not seen on this patient. In ? the absence of symptoms, it is of uncertain etiology or clinical significance. If there is continued clinical concern, a follow-up CT scan could be obtained in 3-6 months. ? 2. No bowel obstruction, free intraperitoneal air or abscess is seen. This no appendicitis or diverticulitis. ? 3. The gallbladder is surgically absent. ? 4. There is a small amount of free fluid within the dependent pelvis. A small right ovarian cyst is suspected. These findings could be more fully evaluated with dedicated pelvic ultrasound, if clinically indicated. ? 5. There is mild degenerative disc disease at L4-L5. ?09/2018 UGI showed: ? IMPRESSION: ? Prominent gastroesophageal reflux with slow clearing to the level of ? the thoracic inlet. ? Findings consistent with antral gastritis and duodenitis. Question duodenal bulb ulcer. ?ENDOSCOPIC STUDIES: 05/2023 EGD AND COLON SHOWED: Endoscopy Findings: STOMACH: Moderate diffuse gastritis DUODENUM: Normal - biopsied to check for celiac sprue Colonoscopy Findings: One small polyp removed Moderate to severe diverticulosis seen in the left colon with edematous and erythematous folds Moderate hemorrhoids on retroflexed exam. Plan: Repeat Colonoscopy interval based on path results - in 1-2 years if polyps are adenomatous and due to fair prep in the left colon. Above findings were reviewed with the patient and Gastritis, colon polyps and diverticulosis handouts were given in the discharge area BIOPSIES SHOWED: A. Small bowel, biopsy: Duodenal/small bowel mucosa with preserved villi and no specific change. B. Gastric antrum, biopsy: Chronic gastritis with minimal activity and foveolar hyperplasia; negative for H pylori, granulomas, intestinal metaplasia and dysplasia. C. Gastric body, biopsy: Chronic gastritis with focal gland atrophy; negative for H pylori, granulomas, intestinal metaplasia and dysplasia. D. Terminal ileum, biopsy: Ileal mucosa with no specific change. E. Colon, cecal polyp: Colonic mucosa with focal active colitis; negative for regenerative changes and granulomas (see comment). F. Colon, left, biopsy: Colonic mucosa with mild nonspecific increase in chronic inflammation without activity or regenerative changes; negative for granulomas and dysplasia. G. Colon, left, biopsy: Colonic mucosa with lymphoid aggregates and no specific change; no regenerative changes, granulomas or dysplasia. H. Colon, sigmoid, biopsy: Colonic mucosa with lymphoid aggregates and no specific change; no regenerative changes, granulomas or dysplasia. I. Colon, rectum, biopsy: Colonic mucosa with mild nonspecific increase in chronic inflammation without activity or significant regenerative changes; negative for granulomas and dysplasia. Comment: (E): No adenomatous dysplasia seen on initial levels; additional deeper levels pending; Many of the biopsies show chronic inflammation that may be related to the patient's history of Crohn's disease (? treated); clinical correlation is necessary 11/2018 EGD SHOWED:? ESOPHAGUS: Mild esophagael motility disorder ? STOMACH: Hemorrhagic gastritis with prominent gastric folds ? Plan: ? Continue present medications (Omeprazole at 20 mg PO once daily) ? Patient has an appointment on 01/13/19 in the GI Clinic with Marya Galvan M.D ? BIOPSIES SHOWED: ? A. Small bowel, biopsy: Small bowel mucosa with no significant histopathology; no ? villous abnormality identified; no increase in intraepithelial lymphocytes. ? B. Stomach, antrum, biopsy: Moderate chronic, inactive gastritis; Helicobacter pylori organisms seen. ? C. Stomach, folds, biopsy: Moderate chronic, inactive gastritis; no Helicobacter pylori organisms seen. ?04/2019 COLONOSCOPY SHOWED: ? Patchy erythema with a few 2-3 mm aphthoid ulcers in the cecum - random biopsies were obtained from TI, right and left colon. ? Moderate hemorrhoids on retroflexed exam. ? Plan: ? Continue present medications (Omeprazole at 20 mg PO once daily) ? Repeat Colonoscopy interval based on path results in 3-5 years if ? polyps are adenomatous and 10 years if polyps are hyperplastic. ? BIOPSIES SHOWED: ? A. Terminal ileum, biopsies: Terminal ileum mucosa with mildly increased lamina propria chronic inflammation, non-specific; no active inflammation; negative for dysplasia/malignancy. ? B. Colon, right, biopsies: Mild chronic colitis; negative for dysplasia/malignancy. ? C. Colon, left, biopsies: Mild chronic colitis; negative for dysplasia/malignancy. ?TODAY'S VISIT Telephone Deck Lid Fitter,?Adelfo # [id number] Has a cold. Lab results reviewed I am feeling better Abd pain and constipation has improved. Has a BM daily Pt noted to have tachycardia - denies feeling dizzy or lightheaded States has not been drinking fluids - advised to drink 5-6 glasses of sports drink and water daily PAST VISIT: EGD and colon results were reviewed with the patient Constipation is better - able to have a BM every 2 days Taking Ndiaye daily which is helping with constipation Doing OK - still has constipation and has a BM every 3 days Abd pain is controlled and continues to have rectal bleeding every time she has a BM Pt complains of abdominal pain started last wed and wednesday Pain stopped on Wednesday BM was very hard and pain improved when she started having diarrhea Recurrent pain and Wed and started having diarrhea. hemorrhoids start popping out when she strains to have a BM. Also notes intermittent bleeding. Lab tests reviewed - IBD serologies positive for Crohn's disease and fecal calprotectin was > 500 (pt had Salmonella infection) Appetite is low - hardly eating anything. Did not have labs done since she has been very depressed and not leaving her house. Has been feeling very hot. Abdominal pain and constipation are better. Rectal bleeding is better. Still has some rectal bleeding when she goes to the bathroom - when she has hard stools. Did not get topical treatment for hemorrhoids - pharmacy told her it needed a PA. Has been using OTC hemorrhoidal creams and they have not been helpful Pt advised to start iron pills for anemia and have labs checked in 4 weeks. Labs show chronic anemia - of note pt is status post hysterectomy 3-4 yrs ago. Patient cc: abdominal bloating, constipation and acid reflex on and off is much better with medication. Patient said the pharmacy never gave her the Hemorrhoids ointment. When she does have a BM she does still see some blood as well. She states that she took a picture with the blood in the toilet. ?Unable to have a BM for the past 3 days - she was able to go today Taking a fibre pill and does not think its helping a lot. Using hemorrhoid cream one to two times daily. Taking Miralax once a day. Constipation has been better since her last visit to the ED. Abdominal pain is better and denies diarrhea. Has eliminated certain foods due to the pain. No problems with hemorrhoids since her last ER visit - using HC with Lidocaine cream prn. ? ?I had not had any abdominal pain for 2 weeks until yesterday 11:40 in the am. ? Pain came on suddenly. ? She was at [facility] and did not want to use the rest room. ? Went home and had an accident and pain gradually subsided around 1:30 pm. ? Did not eat any thing in the morning. ? Wt fluctuates - looses 3-5 lbs and then regains it [facility] Medical History (Updated 09/06/23 @ 13:58 by Nolberto Garcia MD) Breast cancer screening by mammogram Overweight (BMI 25.0-29.9) Abnormal CT scan, chest Hemorrhoids with complication Colon cancer screening Generalized abdominal pain Visual impairment Duodenal ulcer GERD (gastroesophageal reflux disease) Obesity (BMI 30-39.9) Menometrorrhagia Seizure in childhood Sclerosing mesenteritis GERD without esophagitis Surgical History History of esophagogastroduodenoscopy (EGD) Hx of colonoscopy Hx of cholecystectomy (~2005) Hx of hysterectomy Hx of section Family History Father No problems noted. Mother No problems noted. Daughter No problems noted. Son No problems noted. Brother Substance abuse Social History Household Members: Children Housing: Apartment Alcohol intake: never Patient Tobacco Use Status: Never used Tobacco e-Cigarette/Vaping Use: Never Used Second Hand Smoke Exposure: No service: No Current occupational status: employed and unemployed Current occupation: [employer] Cognitive needs: No Hearing needs: No Vision needs: No Review of Systems Const All systems reviewed & are unremarkable except as noted in HPI and below Physical Exam Const General: no acute distress Nutritional Appearance: average body habitus Orientation/consciousness: patient oriented x3 Limitations: language barrier HEENT Head: Yes normal to inspection Ears: hearing grossly normal bilaterally Eyes Sclerae: sclerae normal Pupils: Equal, round and reactive pupils present Neck Neck: Yes normal visual inspection Chest Chest palpation & inspection: normal inspection of the chest Resp Effort & Inspection: normal respiratory effort Auscultation: clear to auscultation bilaterally Cardio Palpation: normal PMI Rate: regular rate Rhythm: regular rhythm Heart sounds: S1 normal heart sound present, S2 normal heart sound present and no murmurs GI Palpation (GI): Soft to palpation, nontender and No hepatosplenomegaly present Auscultation: normal bowel sounds Rectal Exam - Female: deferred Skin General skin exam: no rashes or lesions noted Neuro General: patient oriented x3, gait normal and moves all extremities Cranial nerves: Yes Equal, round and reactive pupils present Psych Appearance: grossly normal Mental Status: mental status grossly normal Assessment & Plan Assessment & Plan (1) Chronic constipation: Code(s): K59.09 - Other constipation (2) GERD (gastroesophageal reflux disease): Code(s): K21.9 - Gastro-esophageal reflux disease without esophagitis Qualifiers: Esophagitis presence: without esophagitis Qualified Code(s): K21.9 - Gastro-esophageal reflux disease without esophagitis (3) Rectal bleeding: Code(s): K62.5 - Hemorrhage of anus and rectum (4) Iron deficiency anemia due to chronic blood loss: Code(s): D50.0 - Iron deficiency anemia secondary to blood loss (chronic) (5) Abdominal pain: Code(s): R10.9 - Unspecified abdominal pain (6) Crohn's disease of colon: Code(s): K50.10 - Crohn's disease of large intestine without complications Plan 47 year old Chinese-speaking female?with GERD, menometrorrhagia followed in GI clinic for post prandial generalized abdominal pain associated with diarrhea for the past 5 years when she moved from [place].? Labs revealed elevated sed rate of 71, a normal CRP of 0.27. Celiac serologies showed normal TTG IgA, mild increase in antigliadin antibody IgA 27. Iron studies revealed a ferritin of 32. Her symptoms are likely a combination of diarrhea predominent IBS and sclerosing mesenteritis. UGI showed possible ulcer in duodenal bulb. EGD showed Mild esophageal motility disorder, Hemorrhagic gastritis with prominent gastric folds, no ulcer noted in the duodenum. Gastric biopsies were positive for H pylori. Patient was treated with triple therapy for H pylori gastritis(clarithromycin, amoxicillin for 10 days) and advised to resume dicyclomine for IBS. Patient had acute onset of abdominal pain with diarrhea and stool studies are positive for Salmonella infection which resolved without treatment. 05/17 Colonoscopy showed Patchy erythema with a few 2-3 mm aphthoid ulcers. Random biopsies were obtained from TI, right and left colon which showed mild chronic colitis- likely related to Salmonella infection; negative for dysplasia/malignancy. Repeat screening colonoscopy was advised in 5 years for follow-up of colitis (due 04/2025). Abdominal pain improved. Patient complained of constipation with intermittent hemorrhoids.? She was advised to increase water and fluid intake and use senna 2 to 3 times a week p.r.n. Repeat labs to follow up on mild anemia and elevated LFTs in past - repeat LFTs were normal. Pt advised to start iron pills for anemia and have labs checked in 4 weeks. 12/17/22 Pt advised to schedule an EGD and a colonoscopy (recurrent SIOBHAN anemia and FU on colitis seen on past colon). Pt to return to the lab for lab tests ordered by Dr Garcia. 04/09/23 - labs showed resolution of anemia and elevated Ig A of 864 - pt referred to Heme Onc for evaluation 05/2023 EGD and colon was performed and findings as noted above 07/01/23 Pt advised to start mesalamine for Crohn's colitis Labs in 4 weeks 10/07/23 Lab results reviewed I am feeling better Abd pain and constipation has improved. Has a daily Follow-up appointment in 4 months Coding Level of Care Code Est Pt Level 4 (62335) Diagnoses Chronic constipation K59.09 Gastroesophageal reflux disease without esophagitis K21.9 Esophagitis presence: without esophagitis Rectal bleeding K62.5 Iron deficiency anemia due to chronic blood loss D50.0 Abdominal pain R10.9 Crohn's disease of colon K50.10 Time Spent (min) 23
[2023-10-07 11:08] VITALS: BP 90/57; PULSE 127; RESP 17; BMI 22.7
== END 2023-10-07 11:39 | disposition home or self-care (01) ==
PROVIDERS: PCP Internal Medicine; Visit Provider Internal Medicine Gastroenterology
DX: K59.09 Other constipation (principal); K21.9 Gastro-esophageal reflux disease without esophagitis; K62.5 Hemorrhage of anus and rectum; D50.0 Iron deficiency anemia secondary to blood loss (chronic); R10.9 Unspecified abdominal pain; K50.10 Crohn's disease of large intestine without complications
CPT/HCPCS: 99214

== ENCOUNTER → 2023-10-07 11:02 | Outpatient (BNVA) | payer OTHER, SELFPAY | PROVIDERS: PCP Internal Medicine; Visit Provider Internal Medicine Gastroenterology | DX: K50.10 Crohn's disease of large intestine without complications (principal); K62.5 Hemorrhage of anus and rectum; K59.09 Other constipation; R10.9 Unspecified abdominal pain; K21.9 Gastro-esophageal reflux disease without esophagitis; D50.0 Iron deficiency anemia secondary to blood loss (chronic) | CPT/HCPCS: 99212 ==

== ENCOUNTER 2023-10-13 14:02 | Outpatient (REF) | payer OTHER, SELFPAY | END 2023-10-13 14:03 | disposition home or self-care (01) | LOC: HO.MAMMO 14:02 | PROVIDERS: PCP Internal Medicine; Visit Provider Internal Medicine | DX: Z12.31 Encounter for screening mammogram for malignant neoplasm of breast (principal) | CPT/HCPCS: 77063; 77067 ==

== ENCOUNTER → 2023-10-13 14:15 | Outpatient (BNV) | payer OTHER, SELFPAY | PROVIDERS: PCP Internal Medicine; Visit Provider Radiology Diagnostic Radiology | DX: Z12.31 Encounter for screening mammogram for malignant neoplasm of breast (principal) | CPT/HCPCS: 77063; 77067 ==

== ENCOUNTER 2024-02-03 12:14 | Outpatient (REF) | payer OTHER, SELFPAY ==
[2024-02-03 12:59] LABS: MANUAL DIFF FLAG NO
[2024-02-03 13:39] LABS: Basophils Absolute Auto 0.1 X10*3/uL (0.0-0.2); Basophils Percent Auto 0.8 % (0-2); Eosinophils Absolute Auto 0.1 X10*3/uL (0.0-0.4); Eosinophils Percent Auto 1.7 % (0-4); Hematocrit 34.8 % (37.0-47.0); Hemoglobin 11.2 g/dl (12.0-16.0); Imm Gran Abs Auto 0.02 X10*3/uL (0.00-0.03); Imm Gran Pct Auto 0.3 % (0.0-0.4); Lymphocytes Percent Auto 54.7 % (20-40); Mean Corpuscular HGB Conc 32.2 g/dl (31.0-35.0); Mean Corpuscular Hemoglobin 28.2 pg (27.0-33.0); Mean Corpuscular Volume 87.7 fL (80.0-98.0); Mean Platelet Volume 10.9 fL (9.4-12.3); Monocytes Absolute Auto 0.8 X10*3/uL (0.1-1.2); Monocytes Percent Auto 10.8 % (2-11); Neutrophils Absolute Auto 2.3 x10*3/uL (2.0-8.3); Neutrophils Percent Auto 31.7 % (45-73); Platelet Count 259 X10*3/uL (160-400); Red Blood Count 3.97 X10*6/uL (4.20-5.50); Red Cell Distribution Width 15.1 % (11.0-16.0); White Blood Count 7.2 X10*3/uL (4.8-10.8)
== END 2024-02-03 12:15 | disposition home or self-care (01) ==
LOC: HO.LAB 12:14
PROVIDERS: PCP Internal Medicine; Visit Provider Internal Medicine Gastroenterology
DX: K50.10 Crohn's disease of large intestine without complications (principal); K21.9 Gastro-esophageal reflux disease without esophagitis; K64.0 First degree hemorrhoids; I10 Essential (primary) hypertension; K62.5 Hemorrhage of anus and rectum; R10.9 Unspecified abdominal pain; D50.0 Iron deficiency anemia secondary to blood loss (chronic)
CPT/HCPCS: 36415; 80053; 82728; 84443; 85025; 86140; 99212

== ENCOUNTER 2024-02-03 12:14 | Outpatient (AMB) | payer OTHER, SELFPAY ==
--- NOTE | 2024-02-03 12:15 | MHC.OFFVIS ---
Vital Signs 02/03/24 12:19 Height 5 ft 1 in Weight 111 lb 15.917 oz BMI 21.2 BP 94/62 Blood Pressure Location Rt brachial Position Sitting Pulse 114 H Pulse Source Pulse Oximeter Pulse Oximetry (%) 91 L Oxygen Delivery Method Room Air Intake Visit Reasons: 4 month follow up Intake Note: Helen presents in office today for a scheduled 4 mos FUV. CC: Pt reports that they have remained stable since their last visit, however; they have not seen any significant improvements in their sx. Pt is still reporting chronic constipation concerns and would like to discuss this today. Pt also requests a refill of their omeprazole. Joiner Helper Required: Yes Joiner Helper Services: Joiner Helper Present Joiner Helper Name: [id number] Vickie Accompanied by: Self / Same As Patient Allergies No Known Allergies [No Known Allergies*] Allergy (Verified 02/03/24 12:24) Medication List - Last Reconciled 02/03/24 by Marya Galvan MD acetaminophen (Tylenol Extra Strength) 500 mg PO Q6H PRN azelaic acid 15% 1 appl topical BID ferrous sulfate 325 mg PO DAILY 90 days lidocaine 5% (Lidoderm) 1 patch topical DAILY PRN MDD remove after 12 hours imtoyotsc-algegjpabmocks-acir 3-2.5 % (7 gram) 1 appl [place] BID mesalamine (Lialda) 2.4 grams (2 x 1.2 gram) PO DAILY 3 months omeprazole 10 mg PO DAILY sennosides-docusate sodium 8.6-50 mg (Senna Plus) 2 tab-caps (2 x 8.6-50 mg) PO BEDTIME 60 days trazodone 50 mg PO BEDTIME PRN HPI HPI 4 month follow up: Details: GI clinic visit for this 48-year-old Swedish-speaking female for follow-up of abdominal pain and diarrhea. ? ??CHRONIC ILLNESSES:?GERD, moshe-metrorrhagia ?LABS IN [facility]:?07/21/19 Normal CBC with mild anemia and mildly elevated transaminases. ? 12/14 celiac serologies were negative. ?IMAGING STUDIES 07/24/[address] scan showed: ? 1. There is a continued stable appearance of a of liv mesentery, of ? with nonpathologically enlarged mesenteric lymph nodes. Please note ? differential considerations on prior report. 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 ? 2. No bowel obstruction, free intracranial air abscess is seen. No ? focal bowel wall thickening. No appendicitis or diverticulitis is seen. ? 3. The gallbladder is surgically absent. ? 4. There is diminished, minimal nonspecific free fluid within the right hemipelvis. ? 5. There is mild degenerative disc disease redemonstrated at L4-L5. ?04/20/[address] scan showed: ? 1. Subtle fat stranding of the central mesentery with numerous nonpathologically enlarged lymph node is seen, a liv mesentery appearance. This has a broad differential which includes mesenteric adenitis. Enteritis is a further differential possibility, although no focal bowel wall thickening is presently noted on this examination ? performed without the benefit of oral contrast. It has been described with lymphoma although typically there is a history of lymphoma or evidence of lymphadenopathy elsewhere, not seen on this patient. In ? the absence of symptoms, it is of uncertain etiology or clinical significance. If there is continued clinical concern, a follow-up CT scan could be obtained in 3-6 months. ? 2. No bowel obstruction, free intraperitoneal air or abscess is seen. This no appendicitis or diverticulitis. ? 3. The gallbladder is surgically absent. ? 4. There is a small amount of free fluid within the dependent pelvis. A small right ovarian cyst is suspected. These findings could be more fully evaluated with dedicated pelvic ultrasound, if clinically indicated. ? 5. There is mild degenerative disc disease at L4-L5. ?09/2018 UGI showed: ? IMPRESSION: ? Prominent gastroesophageal reflux with slow clearing to the level of ? the thoracic inlet. ? Findings consistent with antral gastritis and duodenitis. Question duodenal bulb ulcer. ?ENDOSCOPIC STUDIES: 05/2023 EGD AND COLON SHOWED: Endoscopy Findings: STOMACH: Moderate diffuse gastritis DUODENUM: Normal - biopsied to check for celiac sprue Colonoscopy Findings: One small polyp removed Moderate to severe diverticulosis seen in the left colon with edematous and erythematous folds Moderate hemorrhoids on retroflexed exam. Plan: Repeat Colonoscopy interval based on path results - in 1-2 years if polyps are adenomatous and due to fair prep in the left colon. Above findings were reviewed with the patient and Gastritis, colon polyps and diverticulosis handouts were given in the discharge area BIOPSIES SHOWED: A. Small bowel, biopsy: Duodenal/small bowel mucosa with preserved villi and no specific change. B. Gastric antrum, biopsy: Chronic gastritis with minimal activity and foveolar hyperplasia; negative for H pylori, granulomas, intestinal metaplasia and dysplasia. C. Gastric body, biopsy: Chronic gastritis with focal gland atrophy; negative for H pylori, granulomas, intestinal metaplasia and dysplasia. D. Terminal ileum, biopsy: Ileal mucosa with no specific change. E. Colon, cecal polyp: Colonic mucosa with focal active colitis; negative for regenerative changes and granulomas (see comment). F. Colon, left, biopsy: Colonic mucosa with mild nonspecific increase in chronic inflammation without activity or regenerative changes; negative for granulomas and dysplasia. G. Colon, left, biopsy: Colonic mucosa with lymphoid aggregates and no specific change; no regenerative changes, granulomas or dysplasia. H. Colon, sigmoid, biopsy: Colonic mucosa with lymphoid aggregates and no specific change; no regenerative changes, granulomas or dysplasia. I. Colon, rectum, biopsy: Colonic mucosa with mild nonspecific increase in chronic inflammation without activity or significant regenerative changes; negative for granulomas and dysplasia. Comment: (E): No adenomatous dysplasia seen on initial levels; additional deeper levels pending; Many of the biopsies show chronic inflammation that may be related to the patient's history of Crohn's disease (? treated); clinical correlation is necessary ?TODAY'S VISIT [facility] [facility] [place] Matcher Offbearer,Opal CC: Pt reports that they have remained stable since their last visit, however; they have not seen any significant improvements in their sx. Pt is still reporting chronic constipation concerns and would like to discuss this today. Pt complains of worsening constipation - has a BM 2-3 times a day with passage of hard stools - like balls Denies abdominal pain. She was taking a powder (Ndiaye) which was working in the past and is no longer working. Complains of fatigue, feeling cold and excessive sleepiness PAST VISIT: Has a cold. Lab results reviewed I am feeling better Abd pain and constipation has improved. Has a BM daily Pt noted to have tachycardia - denies feeling dizzy or lightheaded States has not been drinking fluids - advised to drink 5-6 glasses of sports drink and water daily EGD and colon results were reviewed with the patient Constipation is better - able to have a BM every 2 days Taking Ndiaye daily which is helping with constipation Doing OK - still has constipation and has a BM every 3 days Abd pain is controlled and continues to have rectal bleeding every time she has a BM Pt complains of abdominal pain started last wed and wednesday Pain stopped on Wednesday BM was very hard and pain improved when she started having diarrhea Recurrent pain and Wed and started having diarrhea. hemorrhoids start popping out when she strains to have a BM. Also notes intermittent bleeding. Lab tests reviewed - IBD serologies positive for Crohn's disease and fecal calprotectin was > 500 (pt had Salmonella infection) Appetite is low - hardly eating anything. Did not have labs done since she has been very depressed and not leaving her house. Has been feeling very hot. Abdominal pain and constipation are better. Rectal bleeding is better. Still has some rectal bleeding when she goes to the bathroom - when she has hard stools. Did not get topical treatment for hemorrhoids - pharmacy told her it needed a PA. Has been using OTC hemorrhoidal creams and they have not been helpful Pt advised to start iron pills for anemia and have labs checked in 4 weeks. Labs show chronic anemia - of note pt is status post hysterectomy 3-4 yrs ago. Patient cc: abdominal bloating, constipation and acid reflex on and off is much better with medication. Patient said the pharmacy never gave her the Hemorrhoids ointment. When she does have a BM she does still see some blood as well. She states that she took a picture with the blood in the toilet. ?Unable to have a BM for the past 3 days - she was able to go today Taking a fibre pill and does not think its helping a lot. Using hemorrhoid cream one to two times daily. Taking Miralax once a day. Constipation has been better since her last visit to the ED. Abdominal pain is better and denies diarrhea. Has eliminated certain foods due to the pain. No problems with hemorrhoids since her last ER visit - using HC with Lidocaine cream prn. ? ?I had not had any abdominal pain for 2 weeks until yesterday 11:40 in the am. ? Pain came on suddenly. ? She was at [facility] and did not want to use the rest room. ? Went home and had an accident and pain gradually subsided around 1:30 pm. ? Did not eat any thing in the morning. ? Wt fluctuates - looses 3-5 lbs and then regains it 11/2018 EGD SHOWED:? ESOPHAGUS: Mild esophagael motility disorder? STOMACH: Hemorrhagic gastritis with prominent gastric folds ? Plan: ? Continue present medications (Omeprazole at 20 mg PO once daily) ? Patient has an appointment on 01/13/19 in the GI Clinic with Marya Galvan M.D ? BIOPSIES SHOWED: ? A. Small bowel, biopsy: Small bowel mucosa with no significant histopathology; no ? villous abnormality identified; no increase in intraepithelial lymphocytes. ? B. Stomach, antrum, biopsy: Moderate chronic, inactive gastritis; Helicobacter pylori organisms seen. ? C. Stomach, folds, biopsy: Moderate chronic, inactive gastritis; no Helicobacter pylori organisms seen. ?04/2019 COLONOSCOPY SHOWED: ? Patchy erythema with a few 2-3 mm aphthoid ulcers in the cecum - random biopsies were obtained from TI, right and left colon. ? Moderate hemorrhoids on retroflexed exam. ? Plan: ? Continue present medications (Omeprazole at 20 mg PO once daily) ? Repeat Colonoscopy interval based on path results in 3-5 years if ? polyps are adenomatous and 10 years if polyps are hyperplastic. ? BIOPSIES SHOWED: ? A. Terminal ileum, biopsies: Terminal ileum mucosa with mildly increased lamina propria chronic inflammation, non-specific; no active inflammation; negative for dysplasia/malignancy. ? B. Colon, right, biopsies: Mild chronic colitis; negative for dysplasia/malignancy. ? C. Colon, left, biopsies: Mild chronic colitis; negative for dysplasia/malignancy. [facility] Medical History (Reviewed 02/03/24 @ 12:18 by Reji Mcintosh [facility] Breast cancer screening by mammogram Overweight (BMI 25.0-29.9) Abnormal CT scan, chest Hemorrhoids with complication Colon cancer screening Generalized abdominal pain Visual impairment Duodenal ulcer GERD (gastroesophageal reflux disease) Obesity (BMI 30-39.9) Menometrorrhagia Seizure in childhood Sclerosing mesenteritis GERD without esophagitis Surgical History History of esophagogastroduodenoscopy (EGD) Hx of colonoscopy Hx of cholecystectomy (~2005) Hx of hysterectomy Hx of section Family History Father No problems noted. Mother No problems noted. Daughter No problems noted. Son No problems noted. Brother Substance abuse Social History Household Members: Children Housing: Apartment Alcohol intake: never Patient Tobacco Use Status: Never used Tobacco e-Cigarette/Vaping Use: Never Used Second Hand Smoke Exposure: No service: No Current occupational status: employed and unemployed Current occupation: [email or web address] Cognitive needs: No Hearing needs: No Vision needs: No Review of Systems Const All systems reviewed & are unremarkable except as noted in HPI and below Physical Exam Vital Signs: Last Vital Signs Pulse 114 H 02/03/24 12:19 BP 94/62 02/03/24 12:19 Pulse Ox 91 L 02/03/24 12:19 Oxygen Delivery Method Room Air 02/03/24 12:19 BMI result Body Mass Index 21.2 Const General: no acute distress Nutritional Appearance: average body habitus Orientation/consciousness: patient oriented x3 Limitations: language barrier HEENT Head: Yes normal to inspection Ears: hearing grossly normal bilaterally Eyes Sclerae: sclerae normal Pupils: Equal, round and reactive pupils present Neck Neck: Yes normal visual inspection Chest Chest palpation & inspection: normal inspection of the chest Resp Effort & Inspection: normal respiratory effort Auscultation: clear to auscultation bilaterally Cardio Palpation: normal PMI Rate: regular rate Rhythm: regular rhythm Heart sounds: S1 normal heart sound present, S2 normal heart sound present and no murmurs GI Palpation (GI): Soft to palpation, nontender and No hepatosplenomegaly present Auscultation: normal bowel sounds Rectal Exam - Female: deferred Skin General skin exam: no rashes or lesions noted Neuro General: patient oriented x3, gait normal and moves all extremities Cranial nerves: Yes Equal, round and reactive pupils present Psych Appearance: grossly normal Mental Status: mental status grossly normal Assessment & Plan Assessment & Plan (1) Chronic constipation: Code(s): K59.09 - Other constipation Category: Medical (2) GERD (gastroesophageal reflux disease): Code(s): K21.9 - Gastro-esophageal reflux disease without esophagitis Category: Medical Qualifiers: Esophagitis presence: without esophagitis Qualified Code(s): K21.9 - Gastro-esophageal reflux disease without esophagitis (3) Hemorrhoids with complication: Code(s): K64.8 - Other hemorrhoids Category: Medical (4) Rectal bleeding: Code(s): K62.5 - Hemorrhage of anus and rectum Category: Medical (5) Iron deficiency anemia due to chronic blood loss: Code(s): D50.0 - Iron deficiency anemia secondary to blood loss (chronic) Category: Medical (6) Abdominal pain: Code(s): R10.9 - Unspecified abdominal pain Category: Medical (7) Crohn's disease of colon: Code(s): K50.10 - Crohn's disease of large intestine without complications Category: Medical Plan 48 year old Swedish-speaking female?with GERD, moshe-metrorrhagia followed in GI clinic for post prandial generalized abdominal pain associated with diarrhea for the past 5 years when she moved from [place].? Labs revealed elevated sed rate of 71, a normal CRP of 0.27. Celiac serologies showed normal TTG IgA, mild increase in antigliadin antibody IgA 27. Iron studies revealed a ferritin of 32. Her symptoms are likely a combination of diarrhea pre-dominent IBS and sclerosing mesenteritis. UGI showed possible ulcer in duodenal bulb. EGD showed Mild esophageal motility disorder, Hemorrhagic gastritis with prominent gastric folds, no ulcer noted in the duodenum. Gastric biopsies were positive for H pylori. Patient was treated with triple therapy for H pylori gastritis(clarithromycin, amoxicillin for 10 days) and advised to resume dicyclomine for IBS. Patient had acute onset of abdominal pain with diarrhea and stool studies are positive for Salmonella infection which resolved without treatment. 05/17 Colonoscopy showed Patchy erythema with a few 2-3 mm aphthoid ulcers. Random biopsies were obtained from TI, right and left colon which showed mild chronic colitis- likely related to Salmonella infection; negative for dysplasia/malignancy. Repeat screening colonoscopy was advised in 5 years for follow-up of colitis (due 04/2025). Abdominal pain improved. Patient complained of constipation with intermittent hemorrhoids.? She was advised to increase water and fluid intake and use senna 2 to 3 times a week p.r.n. Repeat labs to follow up on mild anemia and elevated LFTs in past - repeat LFTs were normal. Pt advised to start iron pills for anemia and have labs checked in 4 weeks. 12/17/22 Pt advised to schedule an EGD and a colonoscopy (recurrent SIOBHAN anemia and FU on colitis seen on past colon). Pt to return to the lab for lab tests ordered by Dr Garcia. 04/09/23 - labs showed resolution of anemia and elevated Ig A of 864 - pt referred to Heme Onc for evaluation 06/16/23 Pt seen by Oncology for IgA gammopathy: This is 47-year-old woman with recently diagnosed Crohn's disease and multitude of gastrointestinal problems was noted to have elevated IgA level along with hypoalbuminemia and elevated total protein. She does not have significant anemia or renal dysfunction. No hypercalcemia. Serum protein electrophoresis was consistent with chronic inflammatory pattern. Serum immunofixation showed elevation all immunoglobulin levels, no monoclonal protein detected. Her ESR is elevated, elevated IgA and hyper paraproteinemia can be seen in inflammatory conditions such as Crohn's disease as well. No further hematological workup is necessary. For her facial rash/?rosacea, she was advised to follow-up with her PCP. 05/2023 EGD and colon was performed and findings as noted above 07/01/23 Pt advised to start mesalamine for Crohn's colitis Labs in 4 weeks 02/03/24 Pt complains of worsening constipation - has a BM 2-3 times a day with passage of hard stools - like balls Denies abdominal pain. She was taking a powder which was working in the past and is no longer working. Pt advised FU labs and fecal calprotectin. Start Linzess 145 mcg daily Follow-up appointment in 2 months Orders: Orders Comprehensive Met. Panel Today K50.10 - Crohn's disease of large intestine without complications Ferritin Today K50.10 - Crohn's disease of large intestine without complications TSH reflex Free T4 Today K50.10 - Crohn's disease of large intestine without complications Calprotectin, Fecal Today K50.10 - Crohn's disease of large intestine without complications C Reactive Protein Today K50.10 - Crohn's disease of large intestine without complications Complete Blood Count Auto Diff Today K50.10 - Crohn's disease of large intestine without complications Medications: New linaclotide (Linzess) 145 mcg PO QAM 30 days 30 caps 3RF K59.09 - Other constipation Coding Level of Care Code Est Pt Level 4 (04303) Diagnoses Chronic constipation K59.09 Gastroesophageal reflux disease without esophagitis K21.9 Esophagitis presence: without esophagitis Hemorrhoids with complication K64.8 Rectal bleeding K62.5 Iron deficiency anemia due to chronic blood loss D50.0 Abdominal pain R10.9 Crohn's disease of colon K50.10 Time Spent (min) 25
[2024-02-03 12:19] VITALS: BP 94/62; PULSE 114; O2SAT 91; BMI 21.2
== END 2024-02-03 13:06 | disposition home or self-care (01) ==
PROVIDERS: PCP Internal Medicine; Visit Provider Internal Medicine Gastroenterology
DX: K59.09 Other constipation (principal); K21.9 Gastro-esophageal reflux disease without esophagitis; K64.8 Other hemorrhoids; K62.5 Hemorrhage of anus and rectum; D50.0 Iron deficiency anemia secondary to blood loss (chronic); R10.9 Unspecified abdominal pain; K50.10 Crohn's disease of large intestine without complications
CPT/HCPCS: 99214

== ENCOUNTER 2024-02-15 13:09 | Outpatient (REF) | payer OTHER, SELFPAY ==
[2024-02-15 14:30] LABS: Alanine Aminotransferase 8 U/L (0-31); Albumin Level 2.8 g/dL (3.5-5.0); Alkaline Phosphatase 56 U/L (39-117); Anion Gap 8 (12-20); Aspartate Amino Transferase 23 U/L (5-31); Bilirubin Total 0.3 mg/dL (0.0-1.0); Blood Urea Nitrogen 11 mg/dL (9-16); C Reactive Protein 0.34 mg/dL (< or = 0.50); Calcium 9.1 mg/dL (8.4-10.2); Carbon Dioxide 25 mmol/L (22-29); Chloride 106 mmol/L (96-108); Estimated Glomerular Filt Rate > 60; Glucose Random 112 mg/dL (60-115); Potassium 3.7 mmol/L (3.3-5.1); Sodium 135 mmol/L (135-145); Total Protein 10.5 g/dL (6.5-8.0)
[2024-02-15 14:46] LABS: Ferritin 198 ng/mL (10-250); TSH reflex Free T4 2.43 uIU/mL (0.32-4.0)
== END 2024-02-15 13:10 | disposition home or self-care (01) ==
LOC: HO.LAB 13:09
PROVIDERS: PCP Internal Medicine; Visit Provider Internal Medicine Gastroenterology
DX: K50.10 Crohn's disease of large intestine without complications (principal)
CPT/HCPCS: 36415; 80053; 82728; 84443; 86140

== ENCOUNTER 2024-03-08 10:02 | Outpatient (AMB) | payer OTHER, SELFPAY ==
[2024-03-08 10:06] VITALS: BP 90/68; PULSE 122; O2SAT 87; BMI 21.0
--- NOTE | 2024-03-08 10:06 | A.OFFPC_ITS ---
Vital Signs 03/08/24 10:06 Height 5 ft 1 in Weight 111 lb BMI 21.0 BP 90/68 Blood Pressure Location Lt brachial Position Sitting Pulse 122 H Pulse Source Pulse Oximeter Pulse Oximetry (%) 87 L Oxygen Delivery Method Room Air Intake Visit Reasons: Crohns Disease Scrap Metal Burner Required: No Allergies No Known Allergies [No Known Allergies*] Allergy (Verified 03/08/24 10:07) Tobacco use date assessed: 09/06/23 Dental Screening Dental Screen Date: 09/06/23 HPI Crohns Disease HPI Details 48-year-old female with interstitial enio g disease Crohn's disease IgA gammopathy GERD and generalized anxiety disorder last seen in 09/15/2023. Patient is up-to-date with colonoscopy 06/16/2023 mammogram is up-to-date. Review of the notes has seen gastroenterology in February 02 patient does have chronic constipation and is on omeprazole patient had an EGD and colonoscopy in 06/16/2023. Noted moderate diffuse gastritis had 1 polyp moderate to severe diverticulosis left colon patient was advised to start on Linzess 145 mg once a day Hoda [id number] PAtient does have ILD. O2 sat 89 on O2 2 L 94. on walking dropped to 87 . walking oxygen saturation went down to 79 has been sob in the last 2-3 months, no fevers, patient is aware of the interstitial lung disease in 2021 and that was the last time that the patient so Pulmonary. At that time patient was asymptomatic and has not followed up since then. [facility] Medical History Breast cancer screening by mammogram Overweight (BMI 25.0-29.9) Abnormal CT scan, chest Hemorrhoids with complication Colon cancer screening Generalized abdominal pain Visual impairment Duodenal ulcer GERD (gastroesophageal reflux disease) Obesity (BMI 30-39.9) Menometrorrhagia Seizure in childhood Sclerosing mesenteritis GERD without esophagitis Surgical History History of esophagogastroduodenoscopy (EGD) Hx of colonoscopy Hx of cholecystectomy (~2005) Hx of hysterectomy Hx of section Family History Father No problems noted. Mother No problems noted. Daughter No problems noted. Son No problems noted. Brother Substance abuse Social History Household Members: Children Housing: Apartment Alcohol intake: never Patient Tobacco Use Status: Never used Tobacco e-Cigarette/Vaping Use: Never Used Second Hand Smoke Exposure: No service: No Current occupational status: employed and unemployed Current occupation: [employer] Cognitive needs: No Hearing needs: No Vision needs: No Questionnaire Thrive Questionnaire Date Thrive assessed: 09/06/23 YSABEL-7 AMB Questionnaire YSABEL-7 Date YSABEL - 7 assessed: 09/06/23 Source: Developed by Drs. Jerod Grover, Heather Bennett, Georgi Contreras and colleagues, with an educational cristal from [employer]. Physical exam (Primary Care) Vital Signs: Oxygen Delivery Method Room Air 03/08/24 10:06 BMI result Body Mass Index 21.0 Tobacco/Smoking Status: Tobacco use Status Tobacco use date assessed 09/06/23 09/06/23 13:46 Patient Tobacco Use Status Never used Tobacco 09/06/23 13:46 e-Cigarette/Vaping Use Never Used 09/06/23 13:46 Thrive Assessment: Date of Thrive Assessment Date Thrive assessed 09/06/23 09/06/23 13:46 Const General: alert; No acute distress Eyes Conjunctivae: conjunctivae normal Resp Auscultation: clear to auscultation bilaterally Cardio Rate: regular rate Rhythm: regular rhythm GI Inspection: Yes normal to inspection Extrem General: Yes normal to inspection and No edema Assessment and Plan Assessment & Plan (1) Crohn's disease of colon: Code(s): K50.10 - Crohn's disease of large intestine without complications Plan: Patient continues to follow-up with Gastroenterology (2) Constipation: Code(s): K59.00 - Constipation, unspecified Plan: Three rules for constipation 1. Diet need to have a high fiber diet less of meat 2. Increase oral fluids 3. Exercise has been started on Linzess (3) GERD (gastroesophageal reflux disease): Code(s): K21.9 - Gastro-esophageal reflux disease without esophagitis Qualifiers: Esophagitis presence: without esophagitis Qualified Code(s): K21.9 - Gastro-esophageal reflux disease without esophagitis Plan: Avoid the foods that causes that usually spicy foods, tomato products, juices, coffee, soda and foods that your sensitive to. After eating do not lie down, allow 3-4 hours before in lie down. And keep the head of bed above 30 degrees to avoid the acid from going up. (4) Generalized anxiety disorder: Code(s): F41.1 - Generalized anxiety disorder Plan: Continue with present medication (5) Iron deficiency anemia due to chronic blood loss: Code(s): D50.0 - Iron deficiency anemia secondary to blood loss (chronic) Plan: Continue with iron (6) Menorrhagia: Code(s): N92.0 - Excessive and frequent menstruation with regular cycle Plan: Discussed about having gynecology involved. (7) ILD (interstitial lung disease): Code(s): J84.9 - Interstitial pulmonary disease, unspecified Plan: concern on low O2 sat - will need oxygen sitting down oxygen saturation is 88. Walking decrease the oxygenation to 79. Oxygen at 2 L placed sent the oxygen sats to 94. Taking off oxygen the sats went down to 88. Patient is being referred urgently to the Pulmonary, chest x-ray requested blood work requested. Setting up oxygen at home 2 L nasal cannula Orders: Orders Free T4 (Free Thyroxine) Today J84.9 - Interstitial pulmonary disease, unspecified Thyroid Stimulating Hormone Today J84.9 - Interstitial pulmonary disease, unspecified IRON PROFILE Today J84.9 - Interstitial pulmonary disease, unspecified Vitamin B12 and Folate Today J84.9 - Interstitial pulmonary disease, unspe cified Ferritin Today J84.9 - Interstitial pulmonary disease, unspecified XR chest 2V Today J84.9 - Interstitial pulmonary disease, unspecified Complete Blood Count Auto Diff Today J84.9 - Interstitial pulmonary disease, unspecified Comprehensive Met. Panel Today J84.9 - Interstitial pulmonary disease, unspecified Reticulocyte Count Today J84.9 - Interstitial pulmonary disease, unspecified Referrals Pulmonology Referral J84.9 - Interstitial pulmonary disease, unspecified Medications: New Oxygen Home Use As directed 1 ea 0RF 2L NC J84.9 - Interstitial pulmonary disease, unspecified Coding Level of Care Code Est Pt Level 4 (27341) Diagnoses Crohn's disease of colon K50.10 Constipation K59.00 Gastroesophageal reflux disease without esophagitis K21.9 Esophagitis presence: without esophagitis Generalized anxiety disorder F41.1 Iron deficiency anemia due to chronic blood loss D50.0 Menorrhagia N92.0 ILD (interstitial lung disease) J84.9
== END 2024-03-08 15:28 | disposition home or self-care (01) ==
PROVIDERS: PCP Internal Medicine; Visit Provider Internal Medicine
DX: K50.10 Crohn's disease of large intestine without complications (principal); K21.9 Gastro-esophageal reflux disease without esophagitis; F41.1 Generalized anxiety disorder; J84.9 Interstitial pulmonary disease, unspecified; D50.0 Iron deficiency anemia secondary to blood loss (chronic); N92.0 Excessive and frequent menstruation with regular cycle
CPT/HCPCS: 99214

== ENCOUNTER 2024-03-08 10:53 | Outpatient (REF) | payer OTHER, SELFPAY ==
--- NOTE | ~2024-03-08 | XR_ITS ---
EXAMINATION: XR CHEST CLINICAL INFORMATION: Interstitial pulmonary disease, unspecified COMPARISON: Chest radiograph 04/28/2020, chest CT 09/27/2021 TECHNIQUE: 2 views of the chest were obtained. FINDINGS: The lungs are well expanded. There is diffuse interstitial prominence, predominantly involving the lower lobes and right upper lobe. This was identified on chest CT 09/27/2021 and was comprised on that scan of multiple tiny pulmonary nodules. Heart size is normal. There is no pleural effusion. No acute bony abnormality. Surgical clips are seen in the right upper quadrant. XR/XR chest 2V IMPRESSION: Diffuse interstitial disease, predominantly involving the lower lobes and right upper lobe. Chest CT is recommended for further evaluation for better comparison with prior chest CT of 09/27/2021. Electronically signed by: Kirstie Lozano MD 03/30/2024 01:26 PM EDT
[2024-03-08 11:12] LABS: MANUAL DIFF FLAG NO
[2024-03-08 11:31] LABS: Basophils Absolute Auto 0.1 X10*3/uL (0.0-0.2); Basophils Percent Auto 1.1 % (0-2); Eosinophils Absolute Auto 0.1 X10*3/uL (0.0-0.4); Eosinophils Percent Auto 1.2 % (0-4); Hematocrit 37.8 % (37.0-47.0); Hemoglobin 11.9 g/dl (12.0-16.0); Imm Gran Abs Auto 0.03 X10*3/uL (0.00-0.03); Imm Gran Pct Auto 0.5 % (0.0-0.4); Immature Retic Fraction 13.3 % (3.0-15.9); Lymphocytes Absolute Auto 3.7 X10*3/uL (1.2-4.9); Lymphocytes Percent Auto 55.4 % (20-40); Mean Corpuscular HGB Conc 31.5 g/dl (31.0-35.0); Mean Corpuscular Hemoglobin 27.9 pg (27.0-33.0); Mean Corpuscular Volume 88.7 fL (80.0-98.0); Mean Platelet Volume 10.9 fL (9.4-12.3); Monocytes Absolute Auto 0.8 X10*3/uL (0.1-1.2); Monocytes Percent Auto 11.5 % (2-11); Neutrophils Percent Auto 30.3 % (45-73); Platelet Count 268 X10*3/uL (160-400); Red Blood Count 4.26 X10*6/uL (4.20-5.50); Red Cell Distribution Width 15.8 % (11.0-16.0); Retic HGB Equivalent 29.7 pg (30.0-35.0); Reticulocyte Percent 1.5 % (0.5-1.8); Reticulocytes Absolute 0.064 X10*6/uL (0.026-0.095); White Blood Count 6.6 X10*3/uL (4.8-10.8)
[2024-03-08 12:37] LABS: Alanine Aminotransferase 12 U/L (0-31); Albumin Level 2.9 g/dL (3.5-5.0); Alkaline Phosphatase 65 U/L (39-117); Anion Gap 9 (12-20); Aspartate Amino Transferase 29 U/L (5-31); Bilirubin Total 0.3 mg/dL (0.0-1.0); Blood Urea Nitrogen 12 mg/dL (9-16); Calcium 9.1 mg/dL (8.4-10.2); Carbon Dioxide 26 mmol/L (22-29); Chloride 106 mmol/L (96-108); Estimated Glomerular Filt Rate > 60; Glucose Random 87 mg/dL (60-115); Iron 39 mcg/dL (30-160); Percent Iron Saturation 21 % (15-50); Potassium 4.1 mmol/L (3.3-5.1); Sodium 137 mmol/L (135-145); Total Iron Binding Capacity 189 mcg/dL (228-428); Total Protein 11.1 g/dL (6.5-8.0); Unsaturated Iron Binding 150 ug/dL
[2024-03-08 12:46] LABS: Ferritin 183 ng/mL (10-250); Free T4 (Free Thyroxine) 0.94 ng/dL (0.71-1.85)
[2024-03-08 12:47] LABS: Folate 14.7 ng/mL (> or = 4.0); Vitamin B12 546 pg/mL (200-900)
== END 2024-03-08 10:54 | disposition home or self-care (01) ==
LOC: HO.LAB 10:53
PROVIDERS: PCP Internal Medicine; Visit Provider Internal Medicine
DX: J84.9 Interstitial pulmonary disease, unspecified (principal)
CPT/HCPCS: 36415; 71046; 80053; 82607; 82728; 82746; 83540; 84439; 84443; 85025; 85045

== ENCOUNTER 2024-03-23 14:47 | Outpatient (AMB) | payer OTHER, SELFPAY ==
[2024-03-23 14:48] VITALS: BP 98/68; PULSE 125; O2SAT 83; BMI 21.2
--- NOTE | 2024-03-23 14:48 | A.OFFVIS_ITS ---
Vital Signs 03/23/24 14:48 Height 5 ft 1 in Weight 112 lb BMI 21.2 BP 98/68 Blood Pressure Location Lt brachial Pulse 125 H Pulse Source Doppler Pulse Oximetry (%) 83 L Oxygen Delivery Method Room Air Intake Visit Reasons: ILD Topstitcher Zigzag Required: Yes Topstitcher Zigzag Name: Ava Styles TachoAníbal Allergies No Known Allergies [No Known Allergies*] Allergy (Verified 03/08/24 10:07) HPI HPI ILD: Details: 48-year-old lady, nonsmoker, with history of COVID-19 back in 2019, with no respiratory complaints who was being worked up for abdominal discomfort and had CT abdomen pelvis that demonstrated multiple diffuse small bilateral pulmonary nodules.? Patient was evaluated by infectious Disease service and sent for pulmonary evaluation.? She had pulmonary function tests that shows mild restrictive physiology with decreased diffusion capacity suggestive of possible underlying interstitial lung disease. Her CT chest also showed multiple small diffuse bilateral pulmonary nodules. Patient decided that she does not want to proceed with further laboratory testing and was lost for follow-up for over 2 years. today she presents complain of significant dyspnea at rest and on exertion and noted to have hypoxia at rest. [facility] Medical History Breast cancer screening by mammogram Overweight (BMI 25.0-29.9) Abnormal CT scan, chest Hemorrhoids with complication Colon cancer screening Generalized abdominal pain Visual impairment Duodenal ulcer GERD (gastroesophageal reflux disease) Obesity (BMI 30-39.9) Menometrorrhagia Seizure in childhood Sclerosing mesenteritis GERD without esophagitis Surgical History History of esophagogastroduodenoscopy (EGD) Hx of colonoscopy Hx of cholecystectomy (~2005) Hx of hysterectomy Hx of section Family History Father No problems noted. Mother No problems noted. Daughter No problems noted. Son No problems noted. Brother Substance abuse Social History Household Members: Children Housing: Apartment Alcohol intake: never Patient Tobacco Use Status: Never used Tobacco e-Cigarette/Vaping Use: Never Used Second Hand Smoke Exposure: No service: No Current occupational status: employed and unemployed Current occupation: [employer] Cognitive needs: No Hearing needs: No Vision needs: No Review of Systems Const Denies daytime sleepiness, Denies excessive sweating, Denies fatigue, Denies fever(s), Denies lethargy, Reports malaise, Denies night sweats, Denies snoring and Reports weight loss Eyes Denies blurry vision and Denies itchy eyes ENT Denies nasal congestion, Denies post nasal drip, Denies sinus pain, Denies sinus pressure and Denies other ( Thrush) Card Denies chest pain, Denies pedal edema, Reports dyspnea, Reports dyspnea on exertion, Denies orthopnea and Denies paroxysmal nocturnal dyspnea Resp Denies cough, Denies hemoptysis, Denies excessive phlegm production, Reports dyspnea, Reports dyspnea on exertion, Denies snoring and Denies wheezing GI Denies abdominal pain and Denies heartburn Musc Denies myalgias, Denies arthralgias and Denies joint swelling Skin/Breast Denies rash Neuro Denies memory loss and Denies seizure-like activity Psych Denies abnormal sleep pattern, Denies anxiety and Denies memory loss Endo Denies excessive sweating, Denies fatigue and Denies heat intolerance Remy/Lymph Denies easy bruising Aller/Immun Denies itchy eyes, Denies seasonal rhinorrhea and Denies wheezing Physical Exam Vital Signs: Last Vital Signs Pulse 125 H 03/23/24 14:48 BP 98/68 03/23/24 14:48 Pulse Ox 83 L 03/23/24 14:48 Oxygen Delivery Method Room Air 03/23/24 14:48 BMI result Body Mass Index 21.2 Const General: no acute distress and alert Nutritional Appearance: thin Orientation/consciousness: Other orientation findings ( oriented) HEENT Head: Yes atraumatic Eyes General: appearance normal, both eyes and all related structures Sclerae: sclerae normal EOM: EOMs intact bilaterally Neck Neck: Yes supple Lymphatic: no lymphadenopathy noted Resp Effort & Inspection: normal respiratory effort and no use of accessory muscles Auscultation: clear to auscultation bilaterally Cardio Rate: regular rate Rhythm: regular rhythm Heart sounds: no gallops, no murmurs and no rubs Skin General skin exam: other ( warm) Extrem General: No clubbing, No cyanosis and No edema Office Procedures 6 Minute Walk Time:: 15:00 SPO2 % at rest: 80 Pulse at rest: 124 SPO2 % during excercise: 85 Pulse during excercise: 118 SPO2 % after excercise: 95 Pulse after excercise: 116 Supplemental Oxygen: 2l at rest, 4l oximizer during walking/ exertion Performance Observations:: pt. desat after 180 yds on 4 lnc, increased to 6l oxygen sat dropped to 88%. Pt. placed on oximizer on 4 l, able to walk 360yds with a sat of 93 to 95%. 50904 - 6 Minute Walk Assessment & Plan Assessment & Plan (1) ILD (interstitial lung disease): Code(s): J84.9 - Interstitial pulmonary disease, unspecified Category: Medical Plan: likely underlying interstitial lung disease with significant progression since the last visit. Will obtain PFT, CT chest, and laboratory studies. (2) Supplemental oxygen dependent: Code(s): Z99.81 - Dependence on supplemental oxygen Category: Medical Plan: 6 minute walk test/ supplemental oxygen evaluation performed. Patient requires supplemental oxygen at 2 L continuous flow at rest and 5 L continuous flow via Oxymizer with exertion. Oxygen order placed. Orders: Orders PFT pulmonary function test Today Z99.81 - Dependence on supplemental oxygen CT chest wo IV con Today J84.9 - Interstitial pulmonary disease, unspecified Rheumatoid Factor Today J84.9 - Interstitial pulmonary disease, unspecified Anti-Centromere B Antibodies Today J84.9 - Interstitial pulmonary disease, unspecified AMB 6 minute walk 03/23/24 J84.9 - Interstitial pulmonary disease, unspecified JOE Reflex Titer and Pattern Today J84.9 - Interstitial pulmonary disease, unspecified Anti DNA DS Antibody Today J84.9 - Interstitial pulmonary disease, unspecified RHODA 1 Antibody Today J84.9 - Interstitial pulmonary disease, unspecified Scleroderma 70 Antibody Today J84.9 - Interstitial pulmonary disease, unspecified Coding Level of Care Code Est Pt Level 4 (81719) Complex EM visit Add On G2211 Diagnoses ILD (interstitial lung disease) J84.9 Supplemental oxygen dependent Z99.81 CPT Codes Coding ([id number])
[2024-03-23 15:39] VITALS: PULSE 124; O2SAT 80
== END 2024-03-23 15:52 | disposition home or self-care (01) ==
PROVIDERS: PCP Internal Medicine; Visit Provider Internal Medicine Pulmonary Disease
DX: J84.9 Interstitial pulmonary disease, unspecified (principal); Z99.81 Dependence on supplemental oxygen
CPT/HCPCS: 94618; 99214; G2211

== ENCOUNTER → 2024-03-23 14:47 | Outpatient (BNVA) | payer OTHER, SELFPAY | PROVIDERS: PCP Internal Medicine; Visit Provider Internal Medicine Pulmonary Disease | DX: J84.9 Interstitial pulmonary disease, unspecified (principal); Z99.81 Dependence on supplemental oxygen | CPT/HCPCS: 94618; 99212 ==

== ENCOUNTER 2024-03-27 14:11 | Outpatient (REF) | payer OTHER, SELFPAY ==
--- NOTE | ~2024-03-27 | CT_ITS ---
EXAMINATION: CT CHEST WITHOUT CONTRAST CLINICAL INFORMATION: Interstitial pulmonary disease COMPARISON: CT chest 09/27/2021 TECHNIQUE: Multidetector volumetric CT imaging of the chest was done. Axial MIP volume rendering provided. Sagittal and coronal reformatted images were obtained. This CT examination was performed using dose optimization techniques as appropriate, variously including the following: *Automated exposure control *Adjustment of mA and/or kV according to patient size (this includes techniques or standardized protocols for targeted exams where dose is matched to indication/reason for exam; i.e. extremities or head) *Use of iterative reconstruction technique DLP: 89 mGy-cm FINDINGS: LUNGS: There are diffuse groundglass changes in the lungs most marked in the lower lobes. The innumerable pulmonary nodules seen at the time of the 09/27/2021 study are not apparent on the current exam - some small pulmonary nodules are present as are some focal groundglass opacities (see saved images). Since the prior study there is developed significant cylindrical bronchiectasis with areas of traction bronchiectasis in the lingula. Some mild subpleural reticulation is present. No honeycombing. MEDIASTINUM: There is some mediastinal lymphadenopathy present, increased when compared to prior. For example there is a precarinal lymph node that measures 1.5 cm, previously 1.0 cm (7:22 compare prior 5:31). The heart is mildly enlarged. No pericardial effusion CORONARY ARTERY CALCIFICATION: None visualized on this study. PLEURA: There is no pleural effusion. No pleural mass or thickening. AXILLA: Bilateral prominent axillary lymph nodes are present with the largest measuring 1.2 cm in short axis dimension on the right previously 0.9 cm (7:9 compare prior 5:21). UPPER ABDOMEN: Spleen is mildly prominent in size. Status post cholecystectomy. No adrenal masses are seen. OSSEOUS STRUCTURES: Unremarkable. CT/CT chest wo IV con IMPRESSION: 1. Interval development of significant cylindrical bronchiectasis with areas of traction bronchiectasis in the lingula. 2. Diffuse new groundglass changes in the lungs most marked in the lower lobes. 3. The innumerable pulmonary nodules seen at the time of the 09/27/2021 study are not apparent on the current exam although there are number of residual nodules.. 4. Mediastinal and axillary lymphadenopathy, increased when compared to prior. 5. Mild splenomegaly. 6. Other incidental findings as described above. Fleischner guidelines were followed. Electronically signed by: Herb Reed MD 03/27/2024 06:24 PM EDT RP
[2024-03-27 15:27] LABS: Rheumatoid Factor < 13.0 IU/mL (<15.0)
[2024-03-28 20:14] LABS: Anti-Centromere B Antibodies <1.0 NEG AI (<1.0 NEG)
[2024-03-30 14:58] LABS: Anti Nuclear Antibody Screen POSITIVE (NEGATIVE)
[2024-03-31 13:33] LABS: Anti DNA DS Antibody <1 IU/mL; JO 1 Antibody <1.0 NEG AI (<1.0 NEG); Scleroderma 70 Antibody <1.0 NEG AI (<1.0 NEG)
== END 2024-03-27 14:12 | disposition home or self-care (01) ==
LOC: HO.CT 14:11
PROVIDERS: PCP Internal Medicine; Visit Provider Internal Medicine Pulmonary Disease
DX: J84.9 Interstitial pulmonary disease, unspecified (principal)
CPT/HCPCS: 36415; 71250; 86038; 86039; 86225; 86235; 86431

== ENCOUNTER 2024-03-30 10:28 | Outpatient (AMB) | payer OTHER, SELFPAY ==
[2024-03-30 10:34] VITALS: BP 111/62; PULSE 124; O2SAT 92; BMI 21.2
--- NOTE | 2024-03-30 10:34 | MHC.OFFVIS ---
Vital Signs 03/30/24 10:34 Height 5 ft 1 in Weight 112 lb BMI 21.2 BP 111/62 Blood Pressure Location Rt brachial Position Sitting Pulse 124 H Pulse Source Doppler Pulse Oximetry (%) 92 Oxygen Delivery Method Nasal Cannula Oxygen Flow Rate 2 Intake Visit Reasons: IDL/CT chest Quality Audit Representative Required: Yes Quality Audit Representative Name: Ava Styles C.L.M Allergies No Known Allergies [No Known Allergies*] Allergy (Verified 03/30/24 10:38) HPI HPI IDL/CT chest: Details: 48-year-old lady, nonsmoker, with history of COVID-19 back in 2019, with no respiratory complaints who was being worked up for abdominal discomfort and had CT abdomen pelvis that demonstrated multiple diffuse small bilateral pulmonary nodules.? Patient was evaluated by infectious Disease service and sent for pulmonary evaluation.? She had pulmonary function tests that shows mild restrictive physiology with decreased diffusion capacity suggestive of possible underlying interstitial lung disease. Her CT chest also showed multiple small diffuse bilateral pulmonary nodules. Patient decided that she does not want to proceed with further laboratory testing and was lost for follow-up for over 2 years. today she presents complain of significant dyspnea at rest and on exertion and noted to have hypoxia at rest. As last office visit patient continue supplemental oxygen with improved symptom tolerance. She has completed her CT chest that shows diffuse bilateral interstitial lung disease. Her rheumatologic workup is pending. [facility] Medical History Breast cancer screening by mammogram Overweight (BMI 25.0-29.9) Abnormal CT scan, chest Hemorrhoids with complication Colon cancer screening Generalized abdominal pain Visual impairment Duodenal ulcer GERD (gastroesophageal reflux disease) Obesity (BMI 30-39.9) Menometrorrhagia Seizure in childhood Sclerosing mesenteritis GERD without esophagitis Surgical History History of esophagogastroduodenoscopy (EGD) Hx of colonoscopy Hx of cholecystectomy (~2005) Hx of hysterectomy Hx of section Family History Father No problems noted. Mother No problems noted. Daughter No problems noted. Son No problems noted. Brother Substance abuse Social History Household Members: Children Housing: Apartment Alcohol intake: never Patient Tobacco Use Status: Never used Tobacco e-Cigarette/Vaping Use: Never Used Second Hand Smoke Exposure: No service: No Current occupational status: employed and unemployed Current occupation: [employer] Cognitive needs: No Hearing needs: No Vision needs: No Review of Systems Const Denies daytime sleepiness, Denies excessive sweating, Denies fatigue, Denies fever(s), Denies lethargy, Denies malaise, Denies night sweats, Denies snoring and Denies weight loss Eyes Denies blurry vision and Denies itchy eyes ENT Denies nasal congestion, Denies post nasal drip, Denies sinus pain, Denies sinus pressure and Denies other ( Thrush) Card Denies chest pain, Denies pedal edema, Reports dyspnea, Reports dyspnea on exertion, Denies orthopnea and Denies paroxysmal nocturnal dyspnea Resp Denies cough, Denies hemoptysis, Denies excessive phlegm production, Reports dyspnea, Reports dyspnea on exertion, Denies snoring and Denies wheezing GI Denies abdominal pain and Denies heartburn Musc Denies myalgias, Denies arthralgias and Denies joint swelling Skin/Breast Denies rash Neuro Denies memory loss and Denies seizure-like activity Psych Denies abnormal sleep pattern, Denies anxiety and Denies memory loss Endo Denies excessive sweating, Denies fatigue and Denies heat intolerance Remy/Lymph Denies easy bruising Aller/Immun Denies itchy eyes, Denies seasonal rhinorrhea and Denies wheezing Physical Exam Vital Signs: Last Vital Signs Pulse 124 H 03/30/24 10:34 BP 111/62 03/30/24 10:34 Pulse Ox 92 03/30/24 10:34 Oxygen Delivery Method Nasal Cannula 03/30/24 10:34 Oxygen Flow Rate 2 03/30/24 10:34 BMI result Body Mass Index 21.2 Const General: no acute distress and alert Nutritional Appearance: not obese Orientation/consciousness: Other orientation findings ( oriented) HEENT Head: Yes atraumatic Eyes General: appearance normal, both eyes and all related structures Sclerae: sclerae normal EOM: EOMs intact bilaterally Neck Neck: Yes supple Lymphatic: no lymphadenopathy noted Resp Effort & Inspection: normal respiratory effort and no use of accessory muscles Auscultation: clear to auscultation bilaterally Cardio Rate: regular rate Rhythm: regular rhythm Heart sounds: no gallops, no murmurs and no rubs Skin General skin exam: other ( warm) Extrem General: No clubbing, No cyanosis and No edema Assessment & Plan Assessment & Plan (1) ILD (interstitial lung disease): Code(s): J84.9 - Interstitial pulmonary disease, unspecified Category: Medical Plan: Interstitial lung disease inconsistent with IPF. Start prednisone 50 mg daily and reassess symptoms in [address] scan in 4 weeks. Rheumatologic workup is pending. (2) Supplemental oxygen dependent: Code(s): Z99.81 - Dependence on supplemental oxygen Category: Medical Plan: Continue supplemental oxygen to maintain O2 saturation above 88%. Orders: Orders CT chest wo IV con 04/28/24 J84.9 - Interstitial pulmonary disease, unspecified Medications: New prednisone 50 mg PO DAILY 30 tabs 2RF Coding Level of Care Code Est Pt Level 4 (00146) Complex EM visit Add On G2211 Diagnoses ILD (interstitial lung disease) J84.9 Supplemental oxygen dependent Z99.81
== END 2024-03-30 10:54 | disposition home or self-care (01) ==
PROVIDERS: PCP Internal Medicine; Visit Provider Internal Medicine Pulmonary Disease
DX: J84.9 Interstitial pulmonary disease, unspecified (principal); Z99.81 Dependence on supplemental oxygen
CPT/HCPCS: 99214; G2211

== ENCOUNTER → 2024-03-30 10:28 | Outpatient (BNVA) | payer OTHER, SELFPAY | PROVIDERS: PCP Internal Medicine; Visit Provider Internal Medicine Pulmonary Disease | DX: J84.9 Interstitial pulmonary disease, unspecified (principal); Z99.81 Dependence on supplemental oxygen | CPT/HCPCS: 99212 ==

== ENCOUNTER 2024-04-17 13:25 | Outpatient (AMB) | payer OTHER, SELFPAY ==
--- NOTE | 2024-04-17 14:48 | A.OFFVIS_ITS ---
Vital Signs 04/17/24 14:49 Height 5 ft 1 in BP 108/68 Blood Pressure Location Rt brachial Position Sitting Pulse 104 H Pulse Source Pulse Oximeter Pulse Oximetry (%) 92 Oxygen Delivery Method Room Air Intake Visit Reasons: 6 min walk poc Allergies No Known Allergies [No Known Allergies*] Allergy (Verified 04/17/24 14:49) Medication List - Last Reconciled 04/17/24 by Avis Schuster LPN acetaminophen (Tylenol Extra Strength) 500 mg PO Q6H PRN ferrous sulfate 325 mg PO DAILY 90 days lidocaine 5% (Lidoderm) 1 patch topical DAILY PRN MDD remove after 12 hours cpljkqbug-ltdupnprpyytlt-rtti 3-2.5 % (7 gram) 1 appl [place] BID linaclotide (Linzess) 145 mcg PO QAM 30 days mesalamine (Lialda) 2.4 grams (2 x 1.2 gram) PO DAILY 3 months omeprazole 10 mg PO DAILY Oxygen Home Use As directed prednisone 50 mg PO DAILY sennosides-docusate sodium 8.6-50 mg (Senna Plus) 2 tab-caps (2 x 8.6-50 mg) PO BEDTIME 60 days trazodone 50 mg PO BEDTIME PRN PFSH Medical History Breast cancer screening by mammogram Overweight (BMI 25.0-29.9) Abnormal CT scan, chest Hemorrhoids with complication Colon cancer screening Generalized abdominal pain Visual impairment Duodenal ulcer GERD (gastroesophageal reflux disease) Obesity (BMI 30-39.9) Menometrorrhagia Seizure in childhood Sclerosing mesenteritis GERD without esophagitis Surgical History History of esophagogastroduodenoscopy (EGD) Hx of colonoscopy Hx of cholecystectomy (~2005) Hx of hysterectomy Hx of section Family History Father No problems noted. Mother No problems noted. Daughter No problems noted. Son No problems noted. Brother Substance abuse Social History Household Members: Children Housing: Apartment Alcohol intake: never Patient Tobacco Use Status: Never used Tobacco e-Cigarette/Vaping Use: Never Used Second Hand Smoke Exposure: No service: No Current occupational status: employed and unemployed Current occupation: [employer] Cognitive needs: No Hearing needs: No Vision needs: No Physical Exam Vital Signs: Last Vital Signs Pulse 104 H 04/17/24 14:49 BP 108/68 04/17/24 14:49 Pulse Ox 92 04/17/24 14:49 Oxygen Delivery Method Room Air 04/17/24 14:49 Office Procedures 6 Minute Walk Time:: 13:45 SPO2 % at rest: 92 Pulse at rest: 104 SPO2 % during excercise: 87 Pulse during excercise: 121 SPO2 % after excercise: 93 Pulse after excercise: 111 Distance in yards walked: 200 Mendez Score: 3 Performance Observations:: Helen walked on level ground without assistance, she walked on room air for 50 yards before her SPO2 dropped to 87%. O2 started at pulsed O2 setting 2 her SPO2 recovered to 92%. She was unable to maintain her SPO2 over 90% on pulsed O2 on settings 2-5. Continuous O2 started and her SPO2 was stable on 2 lpm at 93%. [id number] - 6 Minute Walk Assessment & Plan Assessment & Plan (1) ILD (interstitial lung disease): Code(s): J84.9 - Interstitial pulmonary disease, unspecified Category: Medical Plan: POC evaluation performed, patient can not use POC to maintain normal oximetry as it does not provide sufficient oxygen flow. Continue current continuous supplemental oxygen therapy. Orders: Orders AMB 6 minute walk 04/17/24 J84.9 - Interstitial pulmonary disease, unspecified Coding Level of Care Code Established Pt Est Pt Level 1 (41861) Patient Type Established Diagnoses ILD (interstitial lung disease) J84.9 CPT Codes Coding ([id number]) Comment NURSE VISIT ONLY
[2024-04-17 14:49] VITALS: BP 108/68; PULSE 104; O2SAT 92
[2024-04-17 14:53] VITALS: PULSE 104; O2SAT 92
== END 2024-04-17 15:26 | disposition home or self-care (01) ==
PROVIDERS: PCP Internal Medicine; Visit Provider Internal Medicine Pulmonary Disease
DX: J84.9 Interstitial pulmonary disease, unspecified (principal)
CPT/HCPCS: 94618

== ENCOUNTER → 2024-04-17 13:25 | Outpatient (BNVA) | payer OTHER, SELFPAY | PROVIDERS: PCP Internal Medicine; Visit Provider Internal Medicine Pulmonary Disease | DX: J84.9 Interstitial pulmonary disease, unspecified (principal) | CPT/HCPCS: 94618; 99211 ==

== ENCOUNTER 2024-04-20 12:32 | Outpatient (AMB) | payer OTHER, SELFPAY ==
--- NOTE | 2024-04-20 12:38 | A.OFFVIS_ITS ---
Vital Signs 04/20/24 12:39 Height 5 ft 1 in Weight 116 lb 13.52 oz BMI 22.1 BP 113/72 Blood Pressure Location Lt brachial Position Sitting Pulse 120 H Intake Visit Reasons: 2 month follow up Intake Note: Helen presents in the office as a 2 month follow up. CC: She states that she is not having any concerns at this time. Manager Proposal Required: Yes Manager Proposal Name: Raiza [id number] Allergies No Known Allergies [No Known Allergies*] Allergy (Verified 04/20/24 12:39) Medication List - Last Reconciled 04/20/24 by Marya Galvan MD acetaminophen (Tylenol Extra Strength) 500 mg PO Q6H PRN ferrous sulfate 325 mg PO DAILY 90 days lidocaine 5% (Lidoderm) 1 patch topical DAILY PRN MDD remove after 12 hours yapdildji-lqxzhbmqvuuoin-csel 3-2.5 % (7 gram) 1 appl [place] BID linaclotide (Linzess) 145 mcg PO QAM 30 days mesalamine (Lialda) 2.4 grams (2 x 1.2 gram) PO DAILY 3 months omeprazole 10 mg PO DAILY Oxygen Home Use As directed prednisone 50 mg PO DAILY sennosides-docusate sodium 8.6-50 mg (Senna Plus) 2 tab-caps (2 x 8.6-50 mg) PO BEDTIME 60 days trazodone 50 mg PO BEDTIME PRN HPI HPI 2 month follow up: Details: GI clinic visit for this 48-year-old British-speaking female for follow-up of abdominal pain and diarrhea. ? ??CHRONIC ILLNESSES:?GERD, moshe-metrorrhagia ?TODAY'S VISIT [employer] Inspector,Thuan CC: She states that she is not having any concerns at this time. Constipation is getting a lot better Has a BM 2-3 times a day. I am getting better Leavng for [place] tomorrow for 2 weeks since Dad is ill with throat and cardiac problems PAST VISIT: Pt complains of worsening constipation - has a BM 2-3 times a day with passage of hard stools - like balls Denies abdominal pain. She was taking a powder (Ndiaye) which was working in the past and is no longer working. Complains of fatigue, feeling cold and excessive sleepiness CC: Pt reports that they have remained stable since their last visit, however; they have not seen any significant improvements in their sx. Pt is still reporting chronic constipation concerns and would like to discuss this today. Has a cold. Lab results reviewed I am feeling better Abd pain and constipation has improved. Has a BM daily Pt noted to have tachycardia - denies feeling dizzy or lightheaded States has not been drinking fluids - advised to drink 5-6 glasses of sports drink and water daily EGD and colon results were reviewed with the patient Constipation is better - able to have a BM every 2 days Taking Ndiaye daily which is helping with constipation Doing OK - still has constipation and has a BM every 3 days Abd pain is controlled and continues to have rectal bleeding every time she has a BM Pt complains of abdominal pain started last wed and wednesday Pain stopped on Wednesday BM was very hard and pain improved when she started having diarrhea Recurrent pain and Wed and started having diarrhea. hemorrhoids start popping out when she strains to have a BM. Also notes intermittent bleeding. Lab tests reviewed - IBD serologies positive for Crohn's disease and fecal calprotectin was > 500 (pt had Salmonella infection) Appetite is low - hardly eating anything. Did not have labs done since she has been very depressed and not leaving her house. Has been feeling very hot. Abdominal pain and constipation are better. Rectal bleeding is better. Still has some rectal bleeding when she goes to the bathroom - when she has hard stools. Did not get topical treatment for hemorrhoids - pharmacy told her it needed a PA. Has been using OTC hemorrhoidal creams and they have not been helpful Pt advised to start iron pills for anemia and have labs checked in 4 weeks. Labs show chronic anemia - of note pt is status post hysterectomy 3-4 yrs ago. Patient cc: abdominal bloating, constipation and acid reflex on and off is much better with medication. Patient said the pharmacy never gave her the Hemorrhoids ointment. When she does have a BM she does still see some blood as well. She states that she took a picture with the blood in the toilet. ?Unable to have a BM for the past 3 days - she was able to go today Taking a fibre pill and does not think its helping a lot. Using hemorrhoid cream one to two times daily. Taking Miralax once a day. Constipation has been better since her last visit to the ED. Abdominal pain is better and denies diarrhea. Has eliminated certain foods due to the pain. No problems with hemorrhoids since her last ER visit - using HC with Lidocaine cream prn. ? ?I had not had any abdominal pain for 2 weeks until yesterday 11:40 in the am. ? Pain came on suddenly. ? She was at [facility] and did not want to use the rest room. ? Went home and had an accident and pain gradually subsided around 1:30 pm. ? Did not eat any thing in the morning. ? Wt fluctuates - looses 3-5 lbs and then regains it [facility]:?07/21/19 Normal CBC with mild anemia and mildly elevated transaminases. ? 12/14 celiac serologies were negative. ?IMAGING STUDIES 07/24/[address] scan showed: ? 1. There is a continued stable appearance of a of liv mesentery, of ? with nonpathologically enlarged mesenteric lymph nodes. Please note ? differential considerations on prior report. 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 ? 2. No bowel obstruction, free intracranial air abscess is seen. No ? focal bowel wall thickening. No appendicitis or diverticulitis is seen. ? 3. The gallbladder is surgically absent. ? 4. There is diminished, minimal nonspecific free fluid within the right hemipelvis. ? 5. There is mild degenerative disc disease redemonstrated at L4-L5. ?04/20/[address] scan showed: ? 1. Subtle fat stranding of the central mesentery with numerous nonpathologically enlarged lymph node is seen, a liv mesentery appearance. This has a broad differential which includes mesenteric adenitis. Enteritis is a further differential possibility, although no focal bowel wall thickening is presently noted on this examination ? performed without the benefit of oral contrast. It has been described with lymphoma although typically there is a history of lymphoma or evidence of lymphadenopathy elsewhere, not seen on this patient. In ? the absence of symptoms, it is of uncertain etiology or clinical significance. If there is continued clinical concern, a follow-up CT scan could be obtained in 3-6 months. ? 2. No bowel obstruction, free intraperitoneal air or abscess is seen. This no appendicitis or diverticulitis. ? 3. The gallbladder is surgically absent. ? 4. There is a small amount of free fluid within the dependent pelvis. A small right ovarian cyst is suspected. These findings could be more fully evaluated with dedicated pelvic ultrasound, if clinically indicated. ? 5. There is mild degenerative disc disease at L4-L5. ?09/2018 UGI showed: ? IMPRESSION: ? Prominent gastroesophageal reflux with slow clearing to the level of ? the thoracic inlet. Findings consistent with antral gastritis and duodenitis. Question duodenal bulb ulcer. ?ENDOSCOPIC STUDIES: 05/2023 EGD AND COLON SHOWED: Endoscopy Findings: STOMACH: Moderate diffuse gastritis DUODENUM: Normal - biopsied to check for celiac sprue Colonoscopy Findings: One small polyp removed Moderate to severe diverticulosis seen in the left colon with edematous and erythematous folds Moderate hemorrhoids on retroflexed exam. Plan: Repeat Colonoscopy interval based on path results - in 1-2 years if polyps are adenomatous and due to fair prep in the left colon. Above findings were reviewed with the patient and Gastritis, colon polyps and diverticulosis handouts were given in the discharge area BIOPSIES SHOWED: A. Small bowel, biopsy: Duodenal/small bowel mucosa with preserved villi and no specific change. B. Gastric antrum, biopsy: Chronic gastritis with minimal activity and foveolar hyperplasia; negative for H pylori, granulomas, intestinal metaplasia and dysplasia. C. Gastric body, biopsy: Chronic gastritis with focal gland atrophy; negative for H pylori, granulomas, intestinal metaplasia and dysplasia. D. Terminal ileum, biopsy: Ileal mucosa with no specific change. E. Colon, cecal polyp: Colonic mucosa with focal active colitis; negative for regenerative changes and granulomas (see comment). F. Colon, left, biopsy: Colonic mucosa with mild nonspecific increase in chronic inflammation without activity or regenerative changes; negative for granulomas and dysplasia. G. Colon, left, biopsy: Colonic mucosa with lymphoid aggregates and no specific change; no regenerative changes, granulomas or dysplasia. H. Colon, sigmoid, biopsy: Colonic mucosa with lymphoid aggregates and no specific change; no regenerative changes, granulomas or dysplasia. I. Colon, rectum, biopsy: Colonic mucosa with mild nonspecific increase in chronic inflammation without activity or significant regenerative changes; negative for granulomas and dysplasia. Comment: (E): No adenomatous dysplasia seen on initial levels; additional deeper levels pending; Many of the biopsies show chronic inflammation that may be related to the patient's history of Crohn's disease (? treated); clinical correlation is necessary 11/2018 EGD SHOWED:? ESOPHAGUS: Mild esophagael motility disorder? STOMACH: Hemorrhagic gastritis with prominent gastric folds ? Plan: ? Continue present medications (Omeprazole at 20 mg PO once daily) ? Patient has an appointment on 01/13/19 in the GI Clinic with Marya Galvan M.D ? BIOPSIES SHOWED: ? A. Small bowel, biopsy: Small bowel mucosa with no significant histopathology; no ? villous abnormality identified; no increase in intraepithelial lymphocytes. ? B. Stomach, antrum, biopsy: Moderate chronic, inactive gastritis; Helicobacter pylori organisms seen. ? C. Stomach, folds, biopsy: Moderate chronic, inactive gastritis; no Helicobacter pylori organisms seen. ?04/2019 COLONOSCOPY SHOWED: ? Patchy erythema with a few 2-3 mm aphthoid ulcers in the cecum - random biopsies were obtained from TI, right and left colon. ? Moderate hemorrhoids on retroflexed exam. ? Plan: ? Continue present medications (Omeprazole at 20 mg PO once daily) ? Repeat Colonoscopy interval based on path results in 3-5 years if ? polyps are adenomatous and 10 years if polyps are hyperplastic. ? BIOPSIES SHOWED: ? A. Terminal ileum, biopsies: Terminal ileum mucosa with mildly increased lamina propria chronic inflammation, non-specific; no active inflammation; negative for dysplasia/malignancy. ? B. Colon, right, biopsies: Mild chronic colitis; negative for dysplasia/malignancy. ? C. Colon, left, biopsies: Mild chronic colitis; negative for dysplasia/malignancy [facility] Medical History Breast cancer screening by mammogram Overweight (BMI 25.0-29.9) Abnormal CT scan, chest Hemorrhoids with complication Colon cancer screening Generalized abdominal pain Visual impairment Duodenal ulcer GERD (gastroesophageal reflux disease) Obesity (BMI 30-39.9) Menometrorrhagia Seizure in childhood Sclerosing mesenteritis GERD without esophagitis Surgical History History of esophagogastroduodenoscopy (EGD) Hx of colonoscopy Hx of cholecystectomy (~2005) Hx of hysterectomy Hx of section Family History Father No problems noted. Mother No problems noted. Daughter No problems noted. Son No problems noted. Brother Substance abuse Social History Household Members: Children Housing: Apartment Alcohol intake: never Patient Tobacco Use Status: Never used Tobacco e-Cigarette/Vaping Use: Never Used Second Hand Smoke Exposure: No service: No Current occupational status: employed and unemployed Current occupation: [employer] Cognitive needs: No Hearing needs: No Vision needs: No Physical Exam Vital Signs: Last Vital Signs Pulse 120 H 04/20/24 12:39 BP 113/72 04/20/24 12:39 BMI result Body Mass Index 22.1 Const Other: On home oxygen General: healthy appearing, no acute distress and ill appearing (Chronically ill-appearing) Nutritional Appearance: average body habitus Orientation/consciousness: patient oriented x3 Limitations: no limitations HEENT Head: Yes normal to inspection Ears: hearing grossly normal bilaterally Mouth: Normal oral and palatal mucosa present Eyes Sclerae: sclerae normal Pupils: Equal, round and reactive pupils present Neck Neck: Yes normal visual inspection Chest Chest palpation & inspection: normal inspection of the chest Resp Effort & Inspection: normal respiratory effort Auscultation: clear to auscultation bilaterally Cardio Palpation: normal PMI Rate: regular rate Rhythm: regular rhythm Heart sounds: S1 normal heart sound present, S2 normal heart sound present and no murmurs GI Palpation (GI): Soft to palpation, nontender and No hepatosplenomegaly present Auscultation: normal bowel sounds Rectal Exam - Female: deferred Skin General skin exam: no rashes or lesions noted Neuro General: patient oriented x3, gait normal and moves all extremities Cranial nerves: Yes Equal, round and reactive pupils present Psych Appearance: grossly normal Mental Status: mental status grossly normal Assessment & Plan Assessment & Plan (1) GERD (gastroesophageal reflux disease): Code(s): K21.9 - Gastro-esophageal reflux disease without esophagitis Category: Medical Qualifiers: Esophagitis presence: without esophagitis Qualified Code(s): K21.9 - Gastro-esophageal reflux disease without esophagitis (2) Iron deficiency anemia due to chronic blood loss: Code(s): D50.0 - Iron deficiency anemia secondary to blood loss (chronic) Category: Medical (3) Abdominal pain: Code(s): R10.9 - Unspecified abdominal pain Category: Medical (4) Crohn's disease of colon: Code(s): K50.10 - Crohn's disease of large intestine without complications Category: Medical (5) Constipation: Code(s): K59.00 - Constipation, unspecified Category: Medical Plan 48 year old British-speaking female?with GERD, moshe-metrorrhagia followed in GI clinic for post prandial generalized abdominal pain associated with diarrhea for the past 5 years when she moved from [place].? Labs revealed elevated sed rate of 71, a normal CRP of 0.27. Celiac serologies showed normal TTG IgA, mild increase in antigliadin antibody IgA 27. Iron studies revealed a ferritin of 32. Her symptoms are likely a combination of diarrhea pre-dominent IBS and sclerosing mesenteritis. UGI showed possible ulcer in duodenal bulb. EGD showed Mild esophageal motility disorder, Hemorrhagic gastritis with prominent gastric folds, no ulcer noted in the duodenum. Gastric biopsies were positive for H pylori. Patient was treated with triple therapy for H pylori gastritis(clarithromycin, amoxicillin for 10 days) and advised to resume dicyclomine for IBS. Patient had acute onset of abdominal pain with diarrhea and stool studies are positive for Salmonella infection which resolved without treatment. 05/17 Colonoscopy showed Patchy erythema with a few 2-3 mm aphthoid ulcers. Random biopsies were obtained from TI, right and left colon which showed mild chronic colitis- likely related to Salmonella infection; negative for dysplasia/malignancy. Repeat screening colonoscopy was advised in 5 years for follow-up of colitis (due 04/2025). Abdominal pain improved. Patient complained of constipation with intermittent hemorrhoids.? She was advised to increase water and fluid intake and use senna 2 to 3 times a week p.r.n. Repeat labs to follow up on mild anemia and elevated LFTs in past - repeat LFTs were normal. Pt advised to start iron pills for anemia and have labs checked in 4 weeks. 12/17/22 Pt advised to schedule an EGD and a colonoscopy (recurrent SIOBHAN anemia and FU on colitis seen on past colon). Pt to return to the lab for lab tests ordered by Dr Garcia. 04/09/23 - labs showed resolution of anemia and elevated Ig A of 864 - pt referred to Heme Onc for evaluation 06/16/23 Pt seen by Oncology for IgA gammopathy: This is 47-year-old woman with recently diagnosed Crohn's disease and multitude of gastrointestinal problems was noted to have elevated IgA level along with hypoalbuminemia and elevated total protein. She does not have significant anemia or renal dysfunction. No hypercalcemia. Serum protein electrophoresis was consistent with chronic inflammatory pattern. Serum immunofixation showed elevation all immunoglobulin levels, no monoclonal protein detected. Her ESR is elevated, elevated IgA and hyper paraproteinemia can be seen in inflammatory conditions such as Crohn's disease as well. No further hematological workup is necessary. For her facial rash/?rosacea, she was advised to follow-up with her PCP. 05/2023 EGD and colon was performed and findings as noted above 07/01/23 Pt advised to start mesalamine for Crohn's colitis Labs in 4 weeks 02/03/24 Pt complains of worsening constipation - has a BM 2-3 times a day with passage of hard stools - like balls. Denies abdominal pain. She was taking a powder which was working in the past and is no longer working. Pt advised FU labs and fecal calprotectin. Start Linzess 145 mcg daily 04/20/24 Constipation improved Follow-up appointment in 4 months Coding Level of Care Code Est Pt Level 3 (78496) Diagnoses Gastroesophageal reflux disease without esophagitis K21.9 Esophagitis presence: without esophagitis Iron deficiency anemia due to chronic blood loss D50.0 Abdominal pain R10.9 Crohn's disease of colon K50.10 Constipation K59.00 Time Spent (min) 17
[2024-04-20 12:39] VITALS: BP 113/72; PULSE 120; BMI 22.1
== END 2024-04-20 13:19 | disposition home or self-care (01) ==
LOC: HO.HGI 12:32
PROVIDERS: PCP Internal Medicine; Visit Provider Internal Medicine Gastroenterology
DX: K21.9 Gastro-esophageal reflux disease without esophagitis (principal); D50.0 Iron deficiency anemia secondary to blood loss (chronic); R10.9 Unspecified abdominal pain; K50.10 Crohn's disease of large intestine without complications; K59.00 Constipation, unspecified
CPT/HCPCS: 99213

== ENCOUNTER → 2024-04-20 12:32 | Outpatient (BNVA) | payer OTHER, SELFPAY | PROVIDERS: PCP Internal Medicine; Visit Provider Internal Medicine Gastroenterology | DX: K21.9 Gastro-esophageal reflux disease without esophagitis (principal); K50.10 Crohn's disease of large intestine without complications; K59.00 Constipation, unspecified; D50.0 Iron deficiency anemia secondary to blood loss (chronic); R10.9 Unspecified abdominal pain | CPT/HCPCS: 99212 ==

== ENCOUNTER 2024-05-09 12:34 | Inpatient (IN) | payer OTHER, SELFPAY ==
[2024-05-09] VITALS (11 sets, daily range): BP systolic 94–108; BP diastolic 56–71; PULSE 94–143; RESP 20–32; TEMP 36.4–36.7; O2SAT 75–98; BMI 21.5
--- NOTE | ~2024-05-09 | XR_ITS ---
EXAMINATION: XR CHEST CLINICAL INFORMATION: Shortness of breath COMPARISON: Chest x-ray of 03/08/[address] of 03/27/2024 TECHNIQUE: Frontal and lateral views of the chest were acquired. FINDINGS: There is been no significant change in bilateral perihilar opacities, with both an airspace and interstitial component. Thickened interlobular septae are again evident as are bilateral hazy opacities compatible with the groundglass visualized on CT. The cardiomediastinal silhouette is stable. XR/XR chest 2V IMPRESSION: No significant change in airspace and interstitial opacity since 03/08/2024. Infectious, inflammatory and neoplastic processes are within the differential diagnosis, including processes such as sarcoidosis; hypersensitivity pneumonitis; desquamative interstitial pneumonitis; and lymphangitic carcinomatosis. Electronically signed by: Stanislaw Harper MD 05/09/2024 03:47 PM [facility]
--- NOTE | 2024-05-09 12:50 | ED_ITS ---
HPI - General Adult General Chief complaint: Dyspnea Stated complaint: low oxygen Time Seen by Provider: 05/09/24 12:56 History of Present Illness ED Provider: Dr. Renee HPI narrative: 48 y/o F patient; PMH crohn's disease, IgA gammopathy, iron deficiency anemia, ILD on home oxygen, seizures; presents from home reporting increased shortness of breath for the last two days associated with a sore throat. The patient has noticed that on her home O2 2L she is only saturating in the 70s. Associated with a non-productive cough, she feels she cannot cough up her mucus. She otherwise denies: fever or chills, nausea/vomiting/diarrhea, abdominal pain, chest pain, syncope. She denies known sick contacts. The patient states she has been on 50mg Prednisone for the last month, although she did not take her doses Wednesday or Wednesday. Related Data Home Medications ?Medication ?Instructions ?Recorded ?Confirmed [id number]-pohf vera 1 appl [place] BID 04/07/22 04/20/24 3 %-2.5 % (7 gram) rectal kit doxycycline hyclate 20 mg tablet 20 mg PO BID 05/09/24 Previous Rx's ?Medication ?Instructions ?Recorded trazodone 50 mg tablet 50 mg PO BEDTIME PRN sleep #90 tabs 12/31/22 acetaminophen 500 mg tablet 500 mg PO Q6H PRN fever or pain 03/16/23 (Tylenol Extra Strength) #14 tabs lidocaine 5 % topical patch 1 patch topical DAILY PRN pain #30 03/16/23 (Lidoderm) ea omeprazole 10 mg capsule,delayed 10 mg PO DAILY #30 caps 04/08/23 release sennosides 8.6 mg-docusate sodium 2 tab-cap (2 x 8.6-50 mg) PO 04/30/23 50 mg capsule (Senna Plus) BEDTIME 60 days #120 caps mesalamine 1.2 gram tablet,delayed 2.4 g (2 x 1.2 gram) PO DAILY 3 10/25/23 release (Lialda) months #180 tabs ferrous sulfate 325 mg (65 mg 325 mg PO DAILY 90 days #90 tabs 01/22/24 iron) tablet linaclotide 145 mcg capsule 145 mcg PO QAM 30 days #30 caps 02/03/24 (Linzess) Oxygen Home Use #1 ea 03/08/24 prednisone 50 mg tablet 50 mg PO DAILY #30 tabs 04/20/24 Allergies Allergy/AdvReac Type Severity Reaction Status Date / Time No Known Allergies Allergy Verified 05/09/24 12:57 [No Known Allergies*] Review of Systems 2 Review of Systems: Yes all other systems are reviewed and are negative PMFSH Past Medical History Attestation statement: The following information was validated with the patient. Source: old records reviewed Medical History Breast cancer screening by mammogram Overweight (BMI 25.0-29.9) Abnormal CT scan, chest Hemorrhoids with complication Colon cancer screening Generalized abdominal pain Visual impairment Duodenal ulcer GERD (gastroesophageal reflux disease) Obesity (BMI 30-39.9) Menometrorrhagia Seizure in childhood Sclerosing mesenteritis GERD without esophagitis Surgical History History of esophagogastroduodenoscopy (EGD) Hx of colonoscopy Hx of cholecystectomy (~2005) Hx of hysterectomy Hx of section Family History Family History Father No problems noted. Mother No problems noted. Daughter No problems noted. Son No problems noted. Brother Substance abuse Social History Social History Household Members: Children Housing: Apartment Alcohol intake: never Patient Tobacco Use Status: Never used Tobacco Smoked in Last 30 Days: No e-Cigarette/Vaping Use: Never Used Second Hand Smoke Exposure: No Use of substances other than those prescribed or required for medical reasons: No Advance Directives: No Advance Directives Information Provided: Yes Do you have a plan to hurt others: No Plan Patient : No service: No Current occupational status: employed and unemployed Current occupation: [employer] Cognitive needs: No Hearing needs: No Vision needs: No Physical Exam ED Vital Signs: Vital Signs - 24 hr 05/09/24 12:50 05/09/24 13:20 05/09/24 13:28 Temperature 98.1 F Pulse Rate 143 H 120 H Respiratory Rate 22 H 26 H Blood Pressure 104/69 Pulse Oximetry 75 L 92 Oxygen Delivery Method Nasal Cannula Oxymizer Oxygen Flow Rate 4 BMI result Body Mass Index 21.5 Patient is afebrile, tachycardic, tachypnic, and hypoxic to 75% on 2L [place] Const General: cooperative HENMT Head: Yes normal to inspection and Yes atraumatic Mouth: other (White patches present on tongue and oral pharynx ) Eyes General: appearance normal, both eyes and all related structures Pupils: Equal, round and reactive pupils present EOM: EOMs intact bilaterally Neck Neck: Yes normal visual inspection, Yes full ROM, Yes supple and No tender Chest Chest palpation & inspection: normal inspection of the chest and normal palpation of entire chest wall Resp Other: Bibasilar rhonchi Effort & Inspection: able to speak in complete sentences, Actively coughing and tachypneic Cardio Rate: regular rate Rhythm: regular rhythm Peripheral pulses: Peripheral pulses 2+ throughout GI Inspection: No Abdominal wall edema and No distended Palpation (GI): Soft to palpation, not firm, nontender, no guarding and not rigid Auscultation: normal bowel sounds Back/Spine/Pelvis Back: No back tenderness Neuro Cranial nerves: Yes Equal, round and reactive pupils present Course Reevaluation(s) Reevaluation #1: Patient is afebrile, saturating well on 4L ventimask. Throat exam consistent with candidiasis - concern for possible esophageal candidiasis given patient's sore throat and pain with swallowing. Provided Fluconazole 200mg PO. Will obtain labs, EKG, CXR. Will provide dose of Solu-Medrol 125mg IV. Patient is on ED bronchodilator protocol. Labs reviewed. No leukocytosis. Remainder of labs unremarkable. VBG reassuring. Provided 500cc IVF. 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 Patient remains moderately tachypnic at 30 breaths per minute, tachycardic to 120s, hypoxia improved on oxymask 4L. Plan: Admit to hospitalist Condition: Stable Medications Administered Generic Name Dose Route Start Last Admin Trade Name Freq PRN Reason Stop Dose Admin Sodium Chloride 1,000 mls @ 500 mls/hr 05/09/24 14:45 05/09/24 15:12 Ns IV 05/09/24 16:44 500 mls/hr .Q2H NIKOLAI Administration Discontinued Medications Generic Name Dose Route Start Last Admin Trade Name Freq PRN Reason Stop Dose Admin Levalbuterol HCl 3.75 mg/ 0 mg 05/09/24 13:14 05/09/24 13:24 Ipratropium [place] 0.5 mg INHALE 05/09/24 13:15 1 dose ONCE ONE Administration Methylprednisolone Sodium Succinate 125 mg 05/09/24 13:41 05/09/24 14:17 Methylprednisolone Sod Succ 125 Mg/2 Ml Vial IVPUSH 05/09/24 13:42 125 mg ONCE ONE Administration Medical Decision Making Lab Data 05/09/24 13:16 05/09/24 13:16 Labs: Lab Results 05/09/24 05/09/24 05/09/24 Range/Units 13:16 13:32 13:43 WBC 8.0 (4.8-10.8) X10*3/uL RBC 4.81 (4.20-5.50) X10*6/uL Hgb 13.9 (12.0-16.0) g/dl Hct 41.6 (37.0-47.0) % MCV 86.5 (80.0-98.0) fL MCH 28.9 (27.0-33.0) pg MCHC 33.4 (31.0-35.0) g/dl RDW 14.4 (11.0-16.0) % Plt Count 265 (160-400) X10*3/uL MPV 9.3 L (9.4-12.3) fL Immature Gran % (Auto) 0.5 H (0.0-0.4) % Neut % (Auto) 54.6 (45-73) % Lymph % (Auto) 36.0 (20-40) % [place] % (Auto) 7.8 (2-11) % Eos % (Auto) 0.5 (0-4) % Baso % (Auto) 0.6 (0-2) % Lymph # (Auto) 2.9 (1.2-4.9) X10*3/uL [place] # (Auto) 0.6 (0.1-1.2) X10*3/uL Eos # (Auto) 0.0 (0.0-0.4) X10*3/uL Baso # (Auto) 0.1 (0.0-0.2) X10*3/uL Abs Immat Gran (auto) 0.04 H (0.00-0.03) X10*3/uL Absolute Neuts (auto) 4.4 (2.0-8.3) x10*3/uL Absolute Nucleated RBC 0.000 (0.0-0.012) X10*3/uL Nucleated RBC % (auto) 0.0 (0.0-0.2) /100WBC PT 12.3 (10.9-12.4) SEC INR 1.1 (0.9-1.1) VBG pH 7.46 H (7.32-7.43) VBG pCO2 41 mmHg VBG pO2 44 mmHg VBG HCO3 30 H (22-26) mmol/L VBG O2 Saturation 64.0 % VBG Base Excess 6.0 mmol/L Sodium 132 L (135-145) mmol/L Potassium 4.0 (3.3-5.1) mmol/L Chloride 100 (96-108) mmol/L Carbon Dioxide 24 (22-29) mmol/L Anion Gap 12 (12-20) BUN 14 (9-16) mg/dL Creatinine 0.73 (0.5-1.4) mg/dL Estim Creat Clear Calc 71.8 Estimated GFR > 60 Random Glucose 101 (60-115) mg/dL Lactic Acid 1.1 (0.5-2.0) mmol/L Calcium 9.4 (8.4-10.2) mg/dL Total Bilirubin 0.4 (0.0-1.0) mg/dL AST 51 H (5-31) U/L ALT 22 (0-31) U/L Alkaline Phosphatase 59 (39-117) U/L Troponin I High Sens 8.1 (<3.5-17.0) ng/L Total Protein 9.4 H (6.5-8.0) g/dL Albumin 2.9 L (3.5-5.0) g/dL Beta HCG, Quant 4 mIU/mL Influenza Type A (PCR) NEGATIVE (Negative) Influenza Type B (PCR) NEGATIVE (Negative) RSV RNA Qual (PCR) NEGATIVE (Negative) SARS-CoV-2 RNA (RT-PCR) NEGATIVE (Negative) Independent Interpretation I performed an independent interpretation of an: EKG Interpretation: ST 152BPM with normal intervals Critical Care Time Critical Care Time Critical Care Time: Yes Total Critical Care Time: 40 Attestation: Total critical care time: Approximately?40?minutes Due to a high probability of clinically significant, life threatening deterioration, the patient required my highest level of preparedness to intervene emergently and I personally spent this critical care time directly and personally managing the patient. This critical care time included obtaining a history; examining the patient; pulse oximetry; ordering and review of studies; arranging urgent treatment with development of a management plan; evaluation of patient's response to treatment; frequent reassessment; and, discussions with other providers. This critical care time was performed to assess and manage the high probability of imminent, life-threatening deterioration that could result in multi-organ failure. It was exclusive of separately billable procedures and treating other patients Discharge Plan Discharge Clinical Impression: ILD (interstitial lung disease), Thrush of mouth and esophagus Patient Disposition: Admitted As Inpatient Print Language: Chinese
--- NOTE | 2024-05-09 12:53 | ECG_ITS ---
Test Reason : DYSPNEA Blood Pressure : / mmHG Vent. Rate : 152 BPM Atrial Rate : 152 BPM P-R Int : 136 ms QRS Dur : 072 ms QT Int : 320 ms P-R-T Axes : 066 027 026 degrees QTc Int : 508 ms Sinus tachycardia T wave abnormality, consider inferolateral ischemia Abnormal ECG No previous ECGs available Referred By: Adilene Bernal Electronically Signed By:Herman Finley
[2024-05-09 13:22] LABS: MANUAL DIFF FLAG NO
--- NOTE | 2024-05-09 13:22 | PC.NURSE ---
Pt to ED with c/o congestion, cough wit chest discomfort. Pt is hx interstitial lung disease and has been on 2-4L oxygen x 1month per her gunner's mate m. Pt arrives sating 74% in triage.
[2024-05-09] MEDS: levalbuterol HCL 3.75 MG, Ipratropium Bromide 0.5 MG INHALE (13:24)
[2024-05-09 13:25] LABS: Basophils Absolute Auto 0.1 X10*3/uL (0.0-0.2); Basophils Percent Auto 0.6 % (0-2); Eosinophils Percent Auto 0.5 % (0-4); Hematocrit 41.6 % (37.0-47.0); Hemoglobin 13.9 g/dl (12.0-16.0); Imm Gran Abs Auto 0.04 X10*3/uL (0.00-0.03); Imm Gran Pct Auto 0.5 % (0.0-0.4); Lymphocytes Absolute Auto 2.9 X10*3/uL (1.2-4.9); Mean Corpuscular HGB Conc 33.4 g/dl (31.0-35.0); Mean Corpuscular Hemoglobin 28.9 pg (27.0-33.0); Mean Corpuscular Volume 86.5 fL (80.0-98.0); Mean Platelet Volume 9.3 fL (9.4-12.3); Monocytes Absolute Auto 0.6 X10*3/uL (0.1-1.2); Monocytes Percent Auto 7.8 % (2-11); Neutrophils Absolute Auto 4.4 x10*3/uL (2.0-8.3); Neutrophils Percent Auto 54.6 % (45-73); Platelet Count 265 X10*3/uL (160-400); Red Blood Count 4.81 X10*6/uL (4.20-5.50); Red Cell Distribution Width 14.4 % (11.0-16.0)
[2024-05-09 13:34] LABS: INTERNATIONAL NORM RATIO 1.1 (0.9-1.1); Prothrombin Time 12.3 SEC (10.9-12.4)
[2024-05-09 13:48] LABS: Lactic Acid 1.1 mmol/L (0.5-2.0)
[2024-05-09 13:50] LABS: Venous Blood Gas Refer to POC result
[2024-05-09 13:50] LABS: VBG HCO3 30 mmol/L (22-26); VBG pCO2 41 mmHg; VBG pH 7.46 (7.32-7.43); VBG pO2 44 mmHg
[2024-05-09 14:00] LABS: Alanine Aminotransferase 22 U/L (0-31); Albumin Level 2.9 g/dL (3.5-5.0); Alkaline Phosphatase 59 U/L (39-117); Anion Gap 12 (12-20); Aspartate Amino Transferase 51 U/L (5-31); Bilirubin Total 0.4 mg/dL (0.0-1.0); Blood Urea Nitrogen 14 mg/dL (9-16); Calcium 9.4 mg/dL (8.4-10.2); Carbon Dioxide 24 mmol/L (22-29); Chloride 100 mmol/L (96-108); Creatinine Clr Calc Pharmacy 71.8; Estimated Glomerular Filt Rate > 60; Glucose Random 101 mg/dL (60-115); HCG Quantitative 4 mIU/mL; Sodium 132 mmol/L (135-145); Total Protein 9.4 g/dL (6.5-8.0)
[2024-05-09] MEDS: methylPREDNISolone Sod Succ 125 MG/2 ML VIAL IVPUSH (14:17)
[2024-05-09 14:21] LABS: Influenza A PCR NEGATIVE (Negative); Influenza B PCR NEGATIVE (Negative); Resp Syncy Virus RNA Qual PCR NEGATIVE (Negative); SARS COV2 PCR INHOUSE NEGATIVE (Negative)
[2024-05-09 14:23] LABS: Troponin-I High Sensitivity 8.1 ng/L (<3.5-17.0)
[2024-05-09] MEDS: 0.9 % Sodium Chloride 1,000 ML 500 ML IV (15:12)
--- NOTE | 2024-05-09 16:04 | PM.IMHP ---
History of Present Illness Date of Service: 05/09/24 Chief Complaint: Dyspnea, SOB A 48 years old lady with PMH of Crohns, IgA gammopathy, ILD on 2L O2, SIOBHAN among others who presents to the hospital with worsening SOB and oral candidiasis. The patient reports feeling worse over the last week with increase dyspnea on exertion and rest, increase O2 supplement with oral thrush and painful swallowing. No chest pain, palpitations, nausea, vomiting, diarrhea or urinary symptoms. In ED a CXR did not show significant changes from prev CXR 2 months ago mainly reporting Infectious, inflammatory and neoplastic processes are within the differential diagnosis, including processes such as sarcoidosis; hypersensitivity pneumonitis; desquamative interstitial pneumonitis; and lymphangitic carcinomatosis. Found to be tachypneic and tachycardic. started on steroids, nebulizers and O2 supplement with fair response. will be admitted for further work up and treatment. Review of Systems Review of Systems: No fever, chills or weakness No chest pain, palpitation reporting shortness of breath or coughing No abdominal pain, nausea or vomiting No urinary symptoms No any rash or wounds [facility] Medical History Breast cancer screening by mammogram Overweight (BMI 25.0-29.9) Abnormal CT scan, chest Hemorrhoids with complication Colon cancer screening Generalized abdominal pain Visual impairment Duodenal ulcer GERD (gastroesophageal reflux disease) Obesity (BMI 30-39.9) Menometrorrhagia Seizure in childhood Sclerosing mesenteritis GERD without esophagitis Family History Father No problems noted. Mother No problems noted. Daughter No problems noted. Son No problems noted. Brother Substance abuse Surgical History History of esophagogastroduodenoscopy (EGD) Hx of colonoscopy Hx of cholecystectomy (~2005) Hx of hysterectomy Hx of section Social History Household Members: Children Housing: Apartment Alcohol intake: never Patient Tobacco Use Status: Never used Tobacco e-Cigarette/Vaping Use: Never Used Second Hand Smoke Exposure: No service: No Current occupational status: employed and unemployed Current occupation: [employer] Cognitive needs: No Hearing needs: No Vision needs: No Meds Allergies Allergy/AdvReac Type Severity Reaction Status Date / Time No Known Allergies Allergy Verified 05/09/24 12:57 [No Known Allergies*] Active Medications: Current Medications Sodium Chloride (Ns) 1,000 mls @ 500 mls/hr IV .Q2H NIKOLAI Stop: 05/09/24 16:44 Last Admin: 05/09/24 15:12 Dose: 500 mls/hr Home Medications ?Medication ?Instructions ?Recorded ?Confirmed ?Last Taken ?Type bqoufmfrg-[id number]-wohu vera 1 appl [place] BID 04/07/22 04/20/24 Unknown History 3 %-2.5 % (7 gram) rectal kit doxycycline hyclate 20 mg tablet 20 mg PO BID 05/09/24 Unknown History Physical Exam Vital Signs and Narrative: Vital Signs: Last Vital Signs Temp 98.1 F 05/09/24 12:50 Pulse 120 H 05/09/24 13:28 Resp 26 H 05/09/24 13:28 BP 104/69 05/09/24 12:50 Pulse Ox 92 05/09/24 13:20 O2 Del Method Oxymizer 05/09/24 13:20 O2 Flow Rate 4 05/09/24 13:20 Oxygen Flow Rate 2 05/09/24 12:50 BMI result Body Mass Index 21.5 Const: Other: Constitutional : Awake, interactive, in mod distress using accessory muscles, on O2 supplement Neck : Normal inspection, Supple Cardiovascular : RRR, no JVP, no lower extremity edema Respiratory : decreased bilateral air entry, basal fine bilateral crackles, scattered wheezes Gastrointestinal: soft, lax, Normal bowel sounds, Non tender Skin : Warm, Dry Neurological : Alert & oriented x3, No focal deficit Results Labs 05/09/24 13:16 05/09/24 13:16 Labs: Laboratory Results - last 24 hr 05/09/24 05/09/24 05/09/24 13:16 13:32 13:43 MCV 86.5 MCH 28.9 MCHC 33.4 RDW 14.4 Plt Count 265 MPV 9.3 L Immature Gran % (Auto) 0.5 H Neut % (Auto) 54.6 Lymph % (Auto) 36.0 [place] % (Auto) 7.8 Eos % (Auto) 0.5 Baso % (Auto) 0.6 Lymph # (Auto) 2.9 [place] # (Auto) 0.6 Eos # (Auto) 0.0 Baso # (Auto) 0.1 Abs Immat Gran (auto) 0.04 H Absolute Neuts (auto) 4.4 Absolute Nucleated RBC 0.000 Nucleated RBC % (auto) 0.0 PT 12.3 INR 1.1 VBG pH 7.46 H VBG pCO2 41 VBG pO2 44 VBG HCO3 30 H VBG O2 Saturation 64.0 VBG Base Excess 6.0 Anion Gap 12 Estim Creat Clear Calc 71.8 Estimated GFR > 60 Random Glucose 101 Lactic Acid 1.1 Calcium 9.4 Total Bilirubin 0.4 AST 51 H ALT 22 Alkaline Phosphatase 59 Troponin I High Sens 8.1 Total Protein 9.4 H Albumin 2.9 L Beta HCG, Quant 4 Influenza Type A (PCR) NEGATIVE Influenza Type B (PCR) NEGATIVE RSV RNA Qual (PCR) NEGATIVE SARS-CoV-2 RNA (RT-PCR) NEGATIVE Imaging Radiologist's Impressions: Impressions Chest X-Ray 05/09/24 15:35 IMPRESSION: No significant change in airspace and interstitial opacity since 03/08/2024. Infectious, inflammatory and neoplastic processes are within the differential diagnosis, including processes such as sarcoidosis; hypersensitivity pneumonitis; desquamative interstitial pneumonitis; and lymphangitic carcinomatosis. Electronically signed by: Stanislaw Harper MD 05/09/2024 03:47 PM [facility] [place] Assessment and Plan (1) Thrush of mouth and esophagus: Status: Acute (2) Supplemental oxygen dependent: Status: Acute (3) Acute on chronic respiratory failure with hypoxemia: Status: Acute Plan A 48 years old lady with PMH of Crohns, IgA gammopathy, ILD on 2L O2, SIOBHAN among others who presents to the hospital with worsening SOB and oral candidiasis. Acute on chronic hypoxic failure 2/2 ILD exacerbation CXR as above Not sepsis or signs of infection IV steroids Bronchodilator nebulizer Wean O2 down as tolerated Pulm eval Eophageal candidiasis Start Diflucan therapy for 2 weeks Crohn's disease Meselamine Insomnia Trazodone DVT PPx Lovenox The patient needs 2 overnight hospital stay for worsening SOB and increase O2 requirments pending clinical improvement, weaning down O2 and Pulmonology consult Quality Stroke Does the patient have a stroke diagnosis?: No VTE Prior VTE?: No VTE Risk Level:: Medical - moderate - high VTE Device Contraindication: Treatment Not Indicated VTE Drug Contraindication: N/A - Med Ordered
[2024-05-09] MEDS: Fluconazole 100 MG TABLET 200 MG PO (16:12)
[2024-05-09] MEDS: Furosemide 20 MG/2 ML VIAL 10 MG IVPUSH (16:44)
[2024-05-09] MEDS: Enoxaparin Sodium 40 MG/0.4 ML SYRINGE SUBCUT (16:48)
[2024-05-09 17:08] LABS: B Type Natriuretic Peptide < 10 pg/mL (<100)
--- NOTE | 2024-05-09 17:29 | PHA.MEDREC ---
Addendum entered by Pascual Martinez candie 05/09/24 17:45: med rec reviewed Original Note: Pharmacy Consult ? Medication Reconciliation Pharmacy has completed the medication reconciliation. 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 Patient confirmed she is taking the Prednisone 50mg regimen and states she has not been able to take it since Wednesday but is almost done with it. She confirmed she has not taken any medications since Wednesday.
[2024-05-09] MEDS: levalbuterol HCL 1.25 MG/3 ML VIAL.NEB INHALE (17:34)
[2024-05-09 17:51] LABS: Troponin-I High Sensitivity 12.6 ng/L (<3.5-17.0)
--- NOTE | 2024-05-09 18:56 | MHC.EDTECH ---
Patient given dinner tray
--- NOTE | 2024-05-09 20:48 | PC.NURSE ---
late entry- assumed care of pt, pt a&0x4, respirations even and unlabored. pt denies pain at this time, daughter at bedside for comfort .
[2024-05-09] MEDS: levalbuterol HCL 1.25 MG, Ipratropium Bromide 0.5 MG INHALE (21:54)
--- NOTE | 2024-05-09 23:07 | MHC.EDTECH ---
This tech took over care of patient at 2300,rounded and introduced self to pt,vitals taken,BP is low,resp rate is elevated,RN made aware,pt appears comfortable,family at bedside,call figueroa in reach
[2024-05-10] VITALS (11 sets, daily range): BP systolic 101–128; BP diastolic 60–82; PULSE 74–105; RESP 15–25; TEMP 36.3–36.9; O2SAT 93–97; BMI 21.4
[2024-05-10] MEDS: 0.9 % Sodium Chloride Flush 3 ML SYRINGE IVFLUSH ×2 (00:42→20:22)
--- NOTE | 2024-05-10 04:19 | MHC.EDTECH ---
Rounds and vitals completed,patient is resting,daughter at bedside,call figueroa in reach
--- NOTE | 2024-05-10 04:40 | PC.NURSE ---
pt assisted to bathroom with 1A and walking o2, pt on 3L. pt moved bowels at this time. pt assisted back into room. pt requesting 4L nasal cannula, pt placed on 4L, sating 98%.
[2024-05-10 05:17] LABS: MANUAL DIFF FLAG NO
[2024-05-10 05:18] LABS: Basophils Percent Auto 0.2 % (0-2); Hematocrit 39.5 % (37.0-47.0); Hemoglobin 12.9 g/dl (12.0-16.0); Imm Gran Abs Auto 0.05 X10*3/uL (0.00-0.03); Imm Gran Pct Auto 0.9 % (0.0-0.4); Lymphocytes Absolute Auto 1.6 X10*3/uL (1.2-4.9); Lymphocytes Percent Auto 29.7 % (20-40); Mean Corpuscular HGB Conc 32.7 g/dl (31.0-35.0); Mean Corpuscular Hemoglobin 28.4 pg (27.0-33.0); Mean Corpuscular Volume 86.8 fL (80.0-98.0); Mean Platelet Volume 9.2 fL (9.4-12.3); Monocytes Absolute Auto 0.2 X10*3/uL (0.1-1.2); Monocytes Percent Auto 4.5 % (2-11); Neutrophils Absolute Auto 3.5 x10*3/uL (2.0-8.3); Neutrophils Percent Auto 64.7 % (45-73); Platelet Count 256 X10*3/uL (160-400); Red Blood Count 4.55 X10*6/uL (4.20-5.50); Red Cell Distribution Width 14.2 % (11.0-16.0); White Blood Count 5.4 X10*3/uL (4.8-10.8)
[2024-05-10 05:36] LABS: Anion Gap 14 (12-20); Blood Urea Nitrogen 14 mg/dL (9-16); Calcium 9.7 mg/dL (8.4-10.2); Carbon Dioxide 23 mmol/L (22-29); Chloride 104 mmol/L (96-108); Creatinine Clr Calc Pharmacy 73.9; Estimated Glomerular Filt Rate > 60; Glucose Random 140 mg/dL (60-115); Potassium 4.3 mmol/L (3.3-5.1); Sodium 137 mmol/L (135-145)
[2024-05-10] MEDS: Omeprazole 20 MG CAPSULE.DR PO ×2 (05:59→17:55)
--- NOTE | 2024-05-10 06:00 | PC.NURSE ---
pt medicated per mar, tolerated well with water.
[2024-05-10] MEDS: levalbuterol HCL 1.25 MG, Ipratropium Bromide 0.5 MG INHALE ×4 (07:51→21:00)
[2024-05-10] MEDS: methylPREDNISolone Sod Succ 40 MG/ML VIAL IVPUSH (09:07)
[2024-05-10] MEDS: Fluconazole 100 MG TABLET PO (09:07)
[2024-05-10] MEDS: Ferrous Sulfate 324 MG TABLET.DR PO (09:07)
[2024-05-10] MEDS: Furosemide 20 MG/2 ML VIAL 10 MG IVPUSH (09:56)
[2024-05-10] MEDS: Nystatin Oral Susp 500,000 UNIT/5 ML ORAL.SUSP 400000 UNIT BUCCAL ×4 (09:58→20:27)
--- NOTE | 2024-05-10 10:28 | HO.PM.IMPN ---
Subjective Subjective Date of Service: 05/10/24 Interval History: feels little better still reporting swalling paing breathing better no other events Review of Systems No fever, chills or weakness painful swallowing reporting shortness of breath or coughing No abdominal pain, nausea or vomiting No urinary symptoms No any rash or wounds Physical Exam Vital Signs: Vital Signs: Last Vital Signs Temp 98.1 F 05/10/24 07:22 Pulse 94 05/10/24 07:51 Resp 18 05/10/24 07:51 BP 111/78 05/10/24 07:22 Pulse Ox 97 05/10/24 07:22 O2 Del Method Room Air 05/10/24 07:22 O2 Flow Rate 3 05/10/24 04:00 Oxygen Flow Rate 2 05/09/24 12:50 BMI result Body Mass Index 21.5 Const: Other: Constitutional : Awake, interactive, in mod distress using accessory muscles, on O2 supplement Neck : Normal inspection, Supple, oral thrush Cardiovascular : RRR, no JVP, no lower extremity edema Respiratory : decreased bilateral air entry, basal fine bilateral crackles, scattered wheezes Gastrointestinal: soft, lax, Normal bowel sounds, Non tender Skin : Warm, Dry Neurological : Alert & oriented x3, No focal deficit Objective Data Active Medications Acetaminophen (Acetaminophen 325 Mg Tablet) 650 mg PO Q6H PRN PRN Reason: Pain, Mild (Pain Scale 1-3), fever or headache Benzonatate (Benzonatate 100 Mg Capsule) 100 mg PO TID PRN PRN Reason: Cough Calcium Carbonate (Calcium Carbonate 750 Mg Tab.Chew) 750 mg PO Q4H PRN PRN Reason: Heartburn Levalbuterol HCl 1.25 mg/ (Ipratropium [place] 0.5 mg) 0 mg INHALE RQ4H [facility] Last Admin: 05/10/24 07:51 Dose: 1 dose Documented By: NABEEL Enoxaparin Sodium (Enoxaparin Sodium 40 Mg/0.4 Ml Syringe) 40 mg SUBCUT Q24H [facility] Last Admin: 05/09/24 16:48 Dose: 40 mg Documented By: TEZ Ferrous Sulfate (Ferrous Sulfate 324 Mg Tablet.) 324 mg PO DAILY [facility] Last Admin: 05/10/24 09:07 Dose: 324 mg Documented By: MT Fluconazole (Fluconazole 100 Mg Tablet) 100 mg PO DAILY [facility] Last Admin: 05/10/24 09:07 Dose: 100 mg Documented By: MT Levalbuterol HCl (Levalbuterol Hcl 1.25 Mg/3 Ml Vial.Neb) 1.25 mg INHALE Q4H PRN PRN Reason: Shortness of Breath/Wheezing Last Admin: 05/09/24 17:34 Dose: 1.25 mg Documented By: NABEEL Magnesium Hydroxide (Milk Of Magnesia 30 Ml Oral.Susp) 30 ml PO DAILY PRN PRN Reason: Constipation Melatonin (Melatonin 3 Mg Tablet) 6 mg PO BEDTIME PRN PRN Reason: Insomnia Methylprednisolone Sodium Succinate (Methylprednisolone Sod Succ 40 Mg/Ml Vial) 40 mg IVPUSH Q12H [facility] Last Admin: 05/10/24 09:07 Dose: 40 mg Documented By: MT Nystatin (Nystatin Oral Susp 500,000 Unit/5 Ml Oral.Susp) 400,000 unit BUCCAL QID [facility]; Protocol Last Admin: 05/10/24 09:58 Dose: 400,000 unit Documented By: MT Omeprazole (Omeprazole 20 Mg Capsule.Dr) 20 mg PO DAILY@0630 [facility] Last Admin: 05/10/24 05:59 Dose: 20 mg Documented By: JOSSE Ondansetron HCl (Ondansetron Hcl 4 Mg/2 Ml Vial) 4 mg IVPUSH Q8H PRN PRN Reason: Nausea and Vomiting Sodium Chloride (0.9 % Sodium Chloride Flush 3 Ml Syringe) 3 ml IVFLUSH QSHIFT [facility] Last Admin: 05/10/24 07:23 Dose: Not Given Documented By: MT Non-Admin Reason: See Note Trazodone HCl (Trazodone Hcl 50 Mg Tablet) 50 mg PO BEDTIME PRN PRN Reason: sleep Labs 05/10/24 04:50 05/10/24 04:50 Labs: Laboratory Results - last 24 hr 05/09/24 05/09/24 05/09/24 13:16 13:32 13:43 MCV 86.5 MCH 28.9 MCHC 33.4 RDW 14.4 Plt Count 265 MPV 9.3 L Immature Gran % (Auto) 0.5 H Neut % (Auto) 54.6 Lymph % (Auto) 36.0 [place] % (Auto) 7.8 Eos % (Auto) 0.5 Baso % (Auto) 0.6 Lymph # (Auto) 2.9 [place] # (Auto) 0.6 Eos # (Auto) 0.0 Baso # (Auto) 0.1 Abs Immat Gran (auto) 0.04 H Absolute Neuts (auto) 4.4 Absolute Nucleated RBC 0.000 Nucleated RBC % (auto) 0.0 PT 12.3 INR 1.1 VBG pH 7.46 H VBG pCO2 41 VBG pO2 44 VBG HCO3 30 H VBG O2 Saturation 64.0 VBG Base Excess 6.0 Anion Gap 12 Estim Creat Clear Calc 71.8 Estimated GFR > 60 Random Glucose 101 Lactic Acid 1.1 Calcium 9.4 Total Bilirubin 0.4 AST 51 H ALT 22 Alkaline Phosphatase 59 Troponin I High Sens 8.1 B-Natriuretic Peptide < 10 Total Protein 9.4 H Albumin 2.9 L Beta HCG, Quant 4 Influenza Type A (PCR) NEGATIVE Influenza Type B (PCR) NEGATIVE RSV RNA Qual (PCR) NEGATIVE SARS-CoV-2 RNA (RT-PCR) NEGATIVE 05/09/24 05/10/24 17:26 04:50 MCV 86.8 MCH 28.4 MCHC 32.7 RDW 14.2 Plt Count 256 MPV 9.2 L Immature Gran % (Auto) 0.9 H Neut % (Auto) 64.7 Lymph % (Auto) 29.7 [place] % (Auto) 4.5 Eos % (Auto) 0.0 Baso % (Auto) 0.2 Lymph # (Auto) 1.6 [place] # (Auto) 0.2 Eos # (Auto) 0.0 Baso # (Auto) 0.0 Abs Immat Gran (auto) 0.05 H Absolute Neuts (auto) 3.5 Absolute Nucleated RBC 0.000 Nucleated RBC % (auto) 0.0 PT INR VBG pH VBG pCO2 VBG pO2 VBG HCO3 VBG O2 Saturation VBG Base Excess Anion Gap 14 Estim Creat Clear Calc 73.9 Estimated GFR > 60 Random Glucose 140 H Lactic Acid Calcium 9.7 Total Bilirubin AST ALT Alkaline Phosphatase Troponin I High Sens 12.6 D B-Natriuretic Peptide Total Protein Albumin Beta HCG, Quant Influenza Type A (PCR) Influenza Type B (PCR) RSV RNA Qual (PCR) SARS-CoV-2 RNA (RT-PCR) Assessment and Plan (1) Acute on chronic respiratory failure with hypoxemia: Status: Acute (2) Thrush of mouth and esophagus: Status: Acute Plan A 48 years old lady with PMH of Crohns, IgA gammopathy, ILD on 2L O2, SIOBHAN among others who presents to the hospital with worsening SOB and oral candidiasis. Acute on chronic hypoxic failure 2/2 ILD exacerbation and fluid overload CXR as above Not sepsis or signs of infection IV steroids , low dose IV Lasix Bronchodilator nebulizer Wean O2 down as tolerated Pulm eval Dysphagia 2/2 oral thrush with Eophageal candidiasis Start Diflucan therapy for 2 weeks Add Nystatin Crohn's disease Meselamine Insomnia Trazodone DVT PPx Lovenox The patient needs overnight hospital stay for worsening SOB and increase O2 requirments pending clinical improvement, weaning down O2 and Pulmonology consult Quality Stroke Does the patient have a stroke diagnosis?: No VTE Prior VTE?: No VTE Risk Level:: Medical - moderate - high VTE Device Contraindication: Treatment Not Indicated VTE Drug Contraindication: N/A - Med Ordered
[2024-05-10] MEDS: methylPREDNISolone Sod Succ 40 MG/ML VIAL 60 MG IVPUSH ×2 (14:02→20:24)
--- NOTE | 2024-05-10 14:09 | PM.CNPUL ---
History of Present Illness History of Present Illness Consult date: 05/10/24 Chief complaint: Dyspnea Hypoxia Narrative: 48-year-old lady with underlying Crohn's, IgA gammopathy, interstitial lung disease on 2 L oxygen admitted on 05/09/2024 with worsening dyspnea no wheezes. Patient chest x-ray showed similar findings to her prior chest imaging. She was started on empiric fluconazole for candidiasis and IV Solu-Medrol with some improvement. Review of Systems Constitutional: Constitutional: Denies daytime sleepiness, Denies excessive sweating, Denies fatigue, Denies fever(s), Denies lethargy, Denies malaise, Denies night sweats, Denies snoring and Denies weight loss Eyes: Eyes: Denies blurry vision and Denies itchy eyes ENT: Denies nasal congestion, Denies post nasal drip, Denies sinus pain, Denies sinus pressure and Reports other ( Thrush) Cardiovascular: Cardiovascular: Denies chest pain, Denies pedal edema, Reports dyspnea, Reports dyspnea on exertion, Denies orthopnea and Denies paroxysmal nocturnal dyspnea Respiratory: Respiratory: Denies cough, Denies hemoptysis, Denies excessive phlegm production, Reports dyspnea, Reports dyspnea on exertion, Denies snoring and Denies wheezing Gastrointestinal: Gastrointestinal: Denies abdominal pain and Denies heartburn Musculoskeletal: Musculoskeletal: Denies myalgias, Denies arthralgias and Denies joint swelling Integumentary/Breasts: Skin/Breast: Denies rash Neurologic: Denies memory loss and Denies seizure-like activity Psychiatric: Psychiatric: Denies abnormal sleep pattern, Denies anxiety and Denies memory loss Endocrine: Endocrine: Denies excessive sweating, Denies fatigue and Denies heat intolerance Hematologic/Lymphatic: Hematologic/Lymphatic: Denies easy bruising Allergic/Immunologic: Allergic/Immunologic: Denies itchy eyes, Denies seasonal rhinorrhea and Denies wheezing PMFSH Past Medical History Medical History Breast cancer screening by mammogram Overweight (BMI 25.0-29.9) Abnormal CT scan, chest Hemorrhoids with complication Colon cancer screening Generalized abdominal pain Visual impairment Duodenal ulcer GERD (gastroesophageal reflux disease) Obesity (BMI 30-39.9) Menometrorrhagia Seizure in childhood Sclerosing mesenteritis GERD without esophagitis Family History Family History Father No problems noted. Mother No problems noted. Daughter No problems noted. Son No problems noted. Brother Substance abuse Surgical History Surgical History History of esophagogastroduodenoscopy (EGD) Hx of colonoscopy Hx of cholecystectomy (~2005) Hx of hysterectomy Hx of section Social History Social History Household Members: Children Housing: Apartment Alcohol intake: never Patient Tobacco Use Status: Never used Tobacco Smoked in Last 30 Days: No e-Cigarette/Vaping Use: Never Used Second Hand Smoke Exposure: No Use of substances other than those prescribed or required for medical reasons: No Advance Directives: No Advance Directives Information Provided: Yes Do you have a plan to hurt others: No Plan Nutrition Risks: No Nutritional Risk Patient : No service: No Current occupational status: employed and unemployed Current occupation: [employer] Cognitive needs: No Hearing needs: No Vision needs: No Meds Allergies Allergy/AdvReac Type Severity Reaction Status Date / Time No Known Allergies Allergy Verified 05/09/24 12:57 [No Known Allergies*] Active Medications: Current Medications Acetaminophen (Acetaminophen 325 Mg Tablet) 650 mg PO Q6H PRN PRN Reason: Pain, Mild (Pain Scale 1-3), fever or headache Benzonatate (Benzonatate 100 Mg Capsule) 100 mg PO TID PRN PRN Reason: Cough Calcium Carbonate (Calcium Carbonate 750 Mg Tab.Chew) 750 mg PO Q4H PRN PRN Reason: Heartburn Levalbuterol HCl 1.25 mg/ (Ipratropium [place] 0.5 mg) 0 mg INHALE RQ4H [facility] Last Admin: 05/10/24 11:34 Dose: 1 dose Enoxaparin Sodium (Enoxaparin Sodium 40 Mg/0.4 Ml Syringe) 40 mg SUBCUT Q24H [facility] Last Admin: 05/09/24 16:48 Dose: 40 mg Ferrous Sulfate (Ferrous Sulfate 324 Mg Tablet.) 324 mg PO DAILY [facility] Last Admin: 05/10/24 09:07 Dose: 324 mg Fluconazole (Fluconazole 100 Mg Tablet) 100 mg PO DAILY [facility] Last Admin: 05/10/24 09:07 Dose: 100 mg Levalbuterol HCl (Levalbuterol Hcl 1.25 Mg/3 Ml Vial.Neb) 1.25 mg INHALE Q4H PRN PRN Reason: Shortness of Breath/Wheezing Last Admin: 05/09/24 17:34 Dose: 1.25 mg Magnesium Hydroxide (Milk Of Magnesia 30 Ml Oral.Susp) 30 ml PO DAILY PRN PRN Reason: Constipation Melatonin (Melatonin 3 Mg Tablet) 6 mg PO BEDTIME PRN PRN Reason: Insomnia Methylprednisolone Sodium Succinate (Methylprednisolone Sod Succ 40 Mg/Ml Vial) 60 mg IVPUSH Q6H [facility] Last Admin: 05/10/24 14:02 Dose: 60 mg Nystatin (Nystatin Oral Susp 500,000 Unit/5 Ml Oral.Susp) 400,000 unit BUCCAL QID [facility]; Protocol Last Admin: 05/10/24 14:01 Dose: 400,000 unit Omeprazole (Omeprazole 20 Mg Capsule.Dr) 20 mg PO BID@0630,1630 [facility] Ondansetron HCl (Ondansetron Hcl 4 Mg/2 Ml Vial) 4 mg IVPUSH Q8H PRN PRN Reason: Nausea and Vomiting Sodium Chloride (0.9 % Sodium Chloride Flush 3 Ml Syringe) 3 ml IVFLUSH QSHIFT [facility] Last Admin: 05/10/24 07:23 Dose: Not Given Trazodone HCl (Trazodone Hcl 50 Mg Tablet) 50 mg PO BEDTIME PRN PRN Reason: sleep Home Medications ?Medication ?Instructions ?Recorded ?Confirmed ?Last Taken ?Type [id number] vera 1 appl AL BID PRN Pain 04/07/22 05/09/24 Unknown History 3 %-2.5 % (7 gram) rectal kit doxycycline hyclate 20 mg tablet 20 mg PO BID 05/09/24 05/09/24 05/07/24 History metronidazole 0.75 % topical cream 1 appl topical BEDTIME redness 05/09/24 05/09/24 05/07/24 History omeprazole 10 mg capsule,delayed 10 mg PO DAILY@0630 05/09/24 05/09/24 05/07/24 History release Physical Exam Vital Signs: Vital Signs: Last Vital Signs Temp 97.6 F 05/10/24 12:00 Pulse 98 05/10/24 12:00 Resp 15 05/10/24 12:00 BP 101/71 05/10/24 12:00 Pulse Ox 95 05/10/24 12:00 O2 Del Method Room Air 05/10/24 12:00 O2 Flow Rate 3 05/10/24 04:00 Oxygen Flow Rate 2 05/09/24 12:50 BMI result Body Mass Index 21.5 Const: General: no acute distress and alert Nutritional Appearance: not obese Orientation/consciousness: Other orientation findings ( oriented) HEENT: Head: Yes atraumatic Mouth: other (Thrush) Eyes: General: appearance normal, both eyes and all related structures Sclerae: sclerae normal EOM: EOMs intact bilaterally Neck: Neck: Yes supple Lymphatic: no lymphadenopathy noted Resp: Effort & Inspection: normal respiratory effort and no use of accessory muscles Auscultation: clear to auscultation bilaterally Cardio: Rate: regular rate Rhythm: regular rhythm Heart sounds: no gallops, no murmurs and no rubs Skin: General skin exam: other ( warm) Extrem: General: No clubbing, No cyanosis and No edema Results Laboratory Findings 05/10/24 04:50 05/10/24 04:50 ABG, PT/INR, D-dimer: PT/INR, D-dimer PT 12.3 SEC (10.9-12.4) 05/09/24 13:16 INR 1.1 (0.9-1.1) 05/09/24 13:16 Abnormal lab findings: Abnormal Labs 05/09/24 05/09/24 05/10/24 13:16 13:43 04:50 MPV 9.3 L 9.2 L Immature Gran % (Auto) 0.5 H 0.9 H Abs Immat Gran (auto) 0.04 H 0.05 H VBG pH 7.46 H VBG HCO3 30 H Sodium 132 L Random Glucose 140 H AST 51 H Total Protein 9.4 H Albumin 2.9 L Assessment and Plan (1) ILD (interstitial lung disease): Status: Acute (2) Acute on chronic respiratory failure with hypoxemia: Status: Acute Plan Impression: 48-year-old lady with underlying IgA gammopathy, JOE positive screen, 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 Pulse is improving off fluconazole and FiO2 requirements improving on systemic glucocorticoids. Recommendations: Increase Solu-Medrol to 60 mg q.6 with for 3 days. Agree with fluconazole for thrush. Continue to titrate off supplemental oxygen as tolerated. Will require further outpatient pulmonary and rheumatologic follow-up. Procedures Date of Service Date of Service: 05/10/24
[2024-05-10] MEDS: Enoxaparin Sodium 40 MG/0.4 ML SYRINGE SUBCUT (17:55)
--- NOTE | 2024-05-10 19:07 | PC.NURSE ---
Permission given per camacho pugh for daughter to stay the night and assist w care of Pt.
[2024-05-11] VITALS (9 sets, daily range): BP systolic 114–132; BP diastolic 74–84; PULSE 73–97; RESP 16–18; TEMP 36–36.6; O2SAT 93–99
[2024-05-11] MEDS: methylPREDNISolone Sod Succ 40 MG/ML VIAL 60 MG IVPUSH ×4 (02:07→21:19)
[2024-05-11] MEDS: Omeprazole 20 MG CAPSULE.DR PO ×2 (06:03→16:16)
[2024-05-11 06:04] LABS: Hematocrit 40.4 % (37.0-47.0); Hemoglobin 13.4 g/dl (12.0-16.0); Mean Corpuscular HGB Conc 33.2 g/dl (31.0-35.0); Mean Corpuscular Hemoglobin 28.5 pg (27.0-33.0); Mean Platelet Volume 9.8 fL (9.4-12.3); Platelet Count 285 X10*3/uL (160-400); White Blood Count 11.9 X10*3/uL (4.8-10.8)
[2024-05-11 06:25] LABS: Anion Gap 13 (12-20); Blood Urea Nitrogen 30 mg/dL (9-16); Calcium 10.1 mg/dL (8.4-10.2); Carbon Dioxide 24 mmol/L (22-29); Chloride 105 mmol/L (96-108); Estimated Glomerular Filt Rate > 60; Glucose Random 142 mg/dL (60-115); Sodium 138 mmol/L (135-145)
[2024-05-11] MEDS: Nystatin Oral Susp 500,000 UNIT/5 ML ORAL.SUSP 400000 UNIT BUCCAL ×4 (07:29→21:19)
[2024-05-11] MEDS: Fluconazole 100 MG TABLET PO (07:29)
[2024-05-11] MEDS: Ferrous Sulfate 324 MG TABLET.DR PO (07:29)
[2024-05-11] MEDS: 0.9 % Sodium Chloride Flush 3 ML SYRINGE IVFLUSH ×3 (07:30→21:19)
[2024-05-11] MEDS: levalbuterol HCL 1.25 MG, Ipratropium Bromide 0.5 MG INHALE ×5 (08:08→23:32)
--- NOTE | 2024-05-11 09:48 | MHC.CM.PN ---
CARE ATTENDANT AND CM MET WITH PATIENT AT BEDSIDE WITH [employer] PT STATES SHE LIVES WITH DAUGHTERDESIREE PT STATES SHE RECEIVES NO SERVICES PT STATES SHE USES O2 AT HOME VIA [facility] PT STATES SHE THINKS SHE HAS A HCP NAMING HER MOTHER MOTHER'S NAME IS KESHIA CEDILLO, PH:[phone] PT PCP IS PT INSURANCE: [employer] DAUGHTER TO TRANSPORT HOME DCP: HOME NO SERVICES
--- NOTE | 2024-05-11 13:49 | MHC.CLN ---
NUTRITION CONSULT FOR RECENT WEIGHT LOSS. REVIEW OF WEIGHT HX SHOWS WEIGHT LOSS X ONE YEAR -10%, NOT SIGNIFICANT. WEIGHT ESSENTIALLY STABLE X [address] MONITOR WEEKLY.
--- NOTE | 2024-05-11 14:03 | P.PNIM_ITS ---
Subjective Subjective Date of Service: 05/11/24 Interval History: seen and evaluated feels better , breathing better no other events Review of Systems Review of Systems: Yes all other systems are reviewed and are negative Physical Exam 2 Vital Signs: Vital Signs: Last Vital Signs Temp 96.8 F 05/11/24 07:58 Pulse 84 05/11/24 11:57 Resp 16 05/11/24 11:57 BP 121/79 05/11/24 07:58 Pulse Ox 94 05/11/24 07:58 O2 Del Method Nasal Cannula 05/11/24 07:58 O2 Flow Rate 2 05/11/24 07:58 Oxygen Flow Rate 2 05/09/24 12:50 BMI result Body Mass Index 21.4 Const: Other: Constitutional : Awake, interactive, not in distress, on O2 supplement Neck : Normal inspection, Supple, oral thrush Cardiovascular : RRR, no JVP, no lower extremity edema Respiratory : improving bilateral air entry, basal fine bilateral crackles, fine wheezes Gastrointestinal: soft, lax, Normal bowel sounds, Non tender Skin : Warm, Dry Neurological : Alert & oriented x3, No focal deficit Objective Data Active Medications Acetaminophen (Acetaminophen 325 Mg Tablet) 650 mg PO Q6H PRN PRN Reason: Pain, Mild (Pain Scale 1-3), fever or headache Benzonatate (Benzonatate 100 Mg Capsule) 100 mg PO TID PRN PRN Reason: Cough Calcium Carbonate (Calcium Carbonate 750 Mg Tab.Chew) 750 mg PO Q4H PRN PRN Reason: Heartburn Levalbuterol HCl 1.25 mg/ (Ipratropium [place] 0.5 mg) 0 mg INHALE RQ4H [facility] Last Admin: 05/11/24 11:54 Dose: 6 dose Documented By: LUIS Enoxaparin Sodium (Enoxaparin Sodium 40 Mg/0.4 Ml Syringe) 40 mg SUBCUT Q24H [facility] Last Admin: 05/10/24 17:55 Dose: 40 mg Documented By: HENNY Ferrous Sulfate (Ferrous Sulfate 324 Mg Tablet.) 324 mg PO DAILY [facility] Last Admin: 05/11/24 07:29 Dose: 324 mg Documented By: HENNY Fluconazole (Fluconazole 100 Mg Tablet) 100 mg PO DAILY [facility] Last Admin: 05/11/24 07:29 Dose: 100 mg Documented By: HENNY Levalbuterol HCl (Levalbuterol Hcl 1.25 Mg/3 Ml Vial.Neb) 1.25 mg INHALE Q4H PRN PRN Reason: Shortness of Breath/Wheezing Last Admin: 05/09/24 17:34 Dose: 1.25 mg Documented By: NABEEL Magnesium Hydroxide (Milk Of Magnesia 30 Ml Oral.Susp) 30 ml PO DAILY PRN PRN Reason: Constipation Melatonin (Melatonin 3 Mg Tablet) 6 mg PO BEDTIME PRN PRN Reason: Insomnia Methylprednisolone Sodium Succinate (Methylprednisolone Sod Succ 40 Mg/Ml Vial) 60 mg IVPUSH Q6H [facility] Last Admin: 05/11/24 13:45 Dose: 60 mg Documented By: HENNY Nystatin (Nystatin Oral Susp 500,000 Unit/5 Ml Oral.Susp) 400,000 unit BUCCAL QID [facility]; Protocol Last Admin: 05/11/24 13:45 Dose: 400,000 unit Documented By: HENNY Omeprazole (Omeprazole 20 Mg Capsule.) 20 mg PO BID@0630,1630 [facility] Last Admin: 05/11/24 06:03 Dose: 20 mg Documented By: JAC Ondansetron HCl (Ondansetron Hcl 4 Mg/2 Ml Vial) 4 mg IVPUSH Q8H PRN PRN Reason: Nausea and Vomiting Sodium Chloride (0.9 % Sodium Chloride Flush 3 Ml Syringe) 3 ml IVFLUSH QSHIFT [facility] Last Admin: 05/11/24 07:30 Dose: 3 ml Documented By: HENNY Trazodone HCl (Trazodone Hcl 50 Mg Tablet) 50 mg PO BEDTIME PRN PRN Reason: sleep Labs 05/11/24 05:40 05/11/24 05:40 Labs: Laboratory Results - last 24 hr 05/11/24 05:40 MCV 86.0 MCH 28.5 MCHC 33.2 RDW 14.0 Plt Count 285 MPV 9.8 Absolute Nucleated RBC 0.000 Nucleated RBC % (auto) 0.0 Anion Gap 13 Estim Creat Clear Calc 76.0 Estimated GFR > 60 Random Glucose 142 H Calcium 10.1 Microbiology Microbiology Results: Microbiology 05/09/24 13:32 Blood Culture - Preliminary Blood - Venous No growth after 24 hours. 05/09/24 13:16 Blood Culture - Preliminary Blood - Venous No growth after 24 hours. Assessment and Plan (1) Acute on chronic respiratory failure with hypoxemia: Status: Acute (2) Thrush of mouth and esophagus: Status: Acute (3) ILD (interstitial lung disease): Status: Acute Plan A 48 years old lady with PMH of Crohns, IgA gammopathy, ILD on 2L O2, SIOBHAN among others who presents to the hospital with worsening SOB and oral candidiasis. Acute on chronic hypoxic failure 2/2 ILD exacerbation and fluid overload improving slowly IV steroids for 2 more days Hold on more IV Lasix Bronchodilator nebulizer Wean O2 down as tolerated Pulm eval Dysphagia 2/2 oral thrush with Eophageal candidiasis Start Diflucan therapy for 2 weeks Add Nystatin Crohn's disease Meselamine Insomnia Trazodone DVT PPx Lovenox The patient needs overnight hospital stay for worsening SOB and increase O2 requirements pending clinical improvement, weaning down O2 Quality Stroke Does the patient have a stroke diagnosis?: No VTE Prior VTE?: No VTE Risk Level:: Medical - moderate - high VTE Device Contraindication: Treatment Not Indicated VTE Drug Contraindication: N/A - Med Ordered
[2024-05-11] MEDS: Enoxaparin Sodium 40 MG/0.4 ML SYRINGE SUBCUT (16:16)
[2024-05-12] MEDS: methylPREDNISolone Sod Succ 40 MG/ML VIAL 60 MG IVPUSH ×2 (02:35→07:31)
[2024-05-12 03:30] VITALS: BP 124/82; PULSE 88; RESP 18; TEMP 36.7; O2SAT 98
[2024-05-12] MEDS: Omeprazole 20 MG CAPSULE.DR PO (05:31)
[2024-05-12] MEDS: 0.9 % Sodium Chloride Flush 3 ML SYRINGE IVFLUSH (07:30)
[2024-05-12] MEDS: Nystatin Oral Susp 500,000 UNIT/5 ML ORAL.SUSP 400000 UNIT BUCCAL ×2 (07:32→12:53)
[2024-05-12] MEDS: Ferrous Sulfate 324 MG TABLET.DR PO (07:32)
[2024-05-12] MEDS: Fluconazole 100 MG TABLET PO (07:32)
[2024-05-12] MEDS: levalbuterol HCL 1.25 MG, Ipratropium Bromide 0.5 MG INHALE ×2 (07:48→11:42)
[2024-05-12 07:49] VITALS: PULSE 88; RESP 18; O2SAT 93
[2024-05-12 07:51] VITALS: BP 123/79; PULSE 67; RESP 16; TEMP 36.8
--- NOTE | 2024-05-12 11:03 | PM.DS ---
DS: Providers Provider Date of Service: 05/12/24 Date of admission: 05/09/24 16:11 Date of discharge: 05/12/24 Primary care physician: Nolberto Garcia MD Consults: 05/09/24 16:14 Consult to Pulmonology Routine Consulting Provider: [facility] [place] [facility] Reason for consultation: Worsening Dyspnea, increase O2 requirements. DS: Diagnosis Discharge Diagnosis (1) Acute on chronic respiratory failure with hypoxemia: Status: Acute (2) Thrush of mouth and esophagus: Status: Acute (3) ILD (interstitial lung disease): Status: Acute (4) Supplemental oxygen dependent: Status: Acute DS: Summary Hospital Course Hospital Course: Admission note HPI A 48 years old lady with PMH of Crohns, IgA gammopathy, ILD on 2L O2, SIOBHAN among others who presents to the hospital with worsening SOB and oral candidiasis. The patient reports feeling worse over the last week with increase dyspnea on exertion and rest, increase O2 supplement with oral thrush and painful swallowing. No chest pain, palpitations, nausea, vomiting, diarrhea or urinary symptoms. In ED a CXR did not show significant changes from prev CXR 2 months ago mainly reporting Infectious, inflammatory and neoplastic processes are within the differential diagnosis, including processes such as sarcoidosis; hypersensitivity pneumonitis; desquamative interstitial pneumonitis; and lymphangitic carcinomatosis. Found to be tachypneic and tachycardic. started on steroids, nebulizers and O2 supplement with fair response. will be admitted for further work up and treatment. Hospital course The patient was admitted and treated for Acute on chronic hypoxic failure secondary to ILD exacerbation and fluid overload with high dose IV steroids per pulmonology recommendations, small dose of IV Lasix , Bronchodilator nebulizer as her O2 was Weaned down as tolerated with fair response. She was able to ambulate on [place] with O2 supplement feeling much better and comfortable going home. Seen by Pulmonology who recommended Prednisone 50 mg daily on discharge until she is seen back in his office. A referral sent to Rheumatology for further evaluation for Positive JOE result and lung involvement in what looks like more of a connective tissue disease. She aslo complained of Dysphagia secondary to oral thrush and possible Eophageal candidiasis given prlonged steroid usage. Started on Diflucan therapy for 2 weeks along with mouthwash Nystatin. Discharge plan Prednisone 50 mg daily Fluconazole and Nystatin to treat Cadidal esophagitis Start nebulizer treatment as needed Follow with Rheumatology as outpatient Follow with Dr Greene as scheduled Time Attestation Discharge Coordination Time (in mins): 43 Quality: Safe Use of Opioids Does Pt have an Active Cancer Diagnosis on the Problem List?: No Quality: Stroke Does the patient have a stroke diagnosis?: No Physical Exam Vital Signs: Vital Signs: Last Vital Signs Temp 98.2 F 05/12/24 07:51 Pulse 67 05/12/24 07:51 Resp 16 05/12/24 07:51 BP 123/79 05/12/24 07:51 Pulse Ox 100 05/12/24 07:51 O2 Del Method Aerosol Mask 05/12/24 07:51 O2 Flow Rate 8.0 05/12/24 07:51 Oxygen Flow Rate 2 05/09/24 12:50 BMI result Body Mass Index 21.4 Const: Other: Constitutional : Awake, interactive, not in distress, on O2 supplement Neck : Normal inspection, Supple, oral thrush Cardiovascular : RRR, no JVP, no lower extremity edema Respiratory : improving bilateral air entry, basal minimal fine bilateral crackles, no wheezes Gastrointestinal: soft, lax, Normal bowel sounds, Non tender Skin : Warm, Dry Neurological : Alert & oriented x3, No focal deficit DS: Data Data Completed and Pending Labs on day of discharge: Preliminary micro results at discharge 05/09/24 13:32 Blood Culture - Preliminary Blood - Venous No growth after 48 hours. 05/09/24 13:16 Blood Culture - Preliminary Blood - Venous No growth after 48 hours. Imaging Chest x-ray: Radiologist's impression: ITS Impressions Chest X-Ray 05/09/24 15:35 IMPRESSION: No significant change in airspace and interstitial opacity since 03/08/2024. Infectious, inflammatory and neoplastic processes are within the differential diagnosis, including processes such as sarcoidosis; hypersensitivity pneumonitis; desquamative interstitial pneumonitis; and lymphangitic carcinomatosis. Electronically signed by: Stanislaw Harper MD 05/09/2024 03:47 PM [facility] Discharge Plan Discharge Anticipated Discharge Date/Time: 05/12/24 10:46 Patient Disposition: Home, Self-Care Discharge Diagnosis: ILD Exacerbation Referrals: Nolberto Garcia MD [Primary Care Provider] - 1 Week Donal Gonzalez MD [Physician] - 2 Weeks (JOE +ve, Abnormal Electropheresis with Lung involvement and ILD picture on oil heaterman steroids for evaluation.) Discharge Medications: New fluconazole 100 mg Tablet 100 mg PO DAILY 12 Days Qty: 12 0RF nystatin 100,000 unit/mL Suspension 400,000 unit buccal QID 5 Days Qty: 80 0RF benzonatate 100 mg Capsule 100 mg PO TID PRN (Reason: Cough) Qty: 20 0RF levalbuterol HCl 1.25 mg/3 mL Solution For Nebulization 1.25 mg inhalation Q4H PRN (Reason: Shortness Of Breath/Wheezing) Qty: 150 1RF (DME) nebulizers Misc See Rx Instructions .Route Qty: 1 0RF Rx Instructions: As directed Continued trazodone 50 mg tablet 50 mg PO BEDTIME PRN (Reason: sleep) Qty: 90 2RF ferrous sulfate 325 mg (65 mg iron) tablet 325 mg PO DAILY 90 Days Qty: 90 2RF doxycycline hyclate 20 mg tablet 20 mg PO BID metronidazole 0.75 % cream 1 appl topical BEDTIME omeprazole 10 mg capsule,delayed release(DR/EC) 10 mg PO DAILY@0630 prednisone 50 mg tablet 50 mg PO DAILY Qty: 30 2RF acetaminophen [Tylenol Extra Strength] 500 mg tablet 500 mg PO Q6H PRN (Reason: fever or pain) Qty: 14 0RF lidocaine [Lidoderm] 5 % adhesive patch,medicated 1 patch topical DAILY MDD remove after 12 hours PRN (Reason: pain) Qty: 30 0RF Rx Instructions: leave on most painful area for up to 12 hrs (DME) Oxygen Home Use Kit See Rx Instructions .Route Qty: 1 0RF Rx Instructions: As directed kfnvwjpjp-mjuwtamkkpayec-amep 3-2.5 % (7 gram) kit 1 appl NC BID PRN (Reason: Pain) Discharge Orders: Discharge Order (Routine); Ordered 05/12/24 Ordered By: Danika Schwab Diet: Advance to usual diet Activity on Discharge: As tolerated Stand Alone Forms: Patient Portal Discharge page Print Language: Tamazight Care Plan Goals: Prednisone 50 mg daily Fluconazole and Nystatin to treat Cadidal esophagitis Start nebulizer treatment as needed Follow with Rheumatology as outpatient Follow with Dr Greene as scheduled Health Concerns: ILD exacerbation Candidal esophagitis Plan of Treatment: Prednisone FLuconazole Assessment: as above
[2024-05-12 11:13] VITALS: PULSE 111; RESP 16; O2SAT 95
[2024-05-12 11:42] VITALS: PULSE 111; RESP 16; O2SAT 95
--- NOTE | 2024-05-12 12:05 | MHC.CM.PN ---
PT WILL DC HOME TODAY WITH NO SERVICES VIA FAMILY TRANSPORT
== END 2024-05-12 14:14 | disposition home or self-care (01) | DRG 142 ==
LOC: HO.ED 15:58 → HO.EDOVER 16:35 → HO.S3 05-10 15:57
PROVIDERS: Registered Nurse Emergency; Admitting Provider Student in an Organized Health Care Education/Training Program; Emergency Provider Emergency Medicine; PCP Internal Medicine; Visit Provider Student in an Organized Health Care Education/Training Program
DX: J84.9 Interstitial pulmonary disease, unspecified (principal); J96.21 Acute and chronic respiratory failure with hypoxia; B37.0 Candidal stomatitis; B37.81 Candidal esophagitis; Z99.81 Dependence on supplemental oxygen; G47.00 Insomnia, unspecified; E87.70 Fluid overload, unspecified; K50.90 Crohn's disease, unspecified, without complications; Z20.822 Contact with and (suspected) exposure to COVID-19; Z79.899 Other long term (current) drug therapy
CPT/HCPCS: 0241U; 36415; 71046; 80048; 80053; 82803; 83605; 83880; 84484; 84702; 85025; 85027; 85610; 87040; 93005; 94640; 99285; J1650; J1940; J2919

== ENCOUNTER → 2024-05-09 12:53 | Outpatient (BNV) | payer OTHER, SELFPAY | PROVIDERS: Admitting Provider Student in an Organized Health Care Education/Training Program; Emergency Provider Emergency Medicine; PCP Internal Medicine; Visit Provider Internal Medicine Cardiovascular Disease | DX: R94.31 Abnormal electrocardiogram [ECG] [EKG] (principal) | CPT/HCPCS: 93010 ==

== ENCOUNTER → 2024-05-09 16:11 | Outpatient (BNV) | payer OTHER, SELFPAY | PROVIDERS: Admitting Provider Student in an Organized Health Care Education/Training Program; Emergency Provider Emergency Medicine; PCP Internal Medicine; Visit Provider Internal Medicine Pulmonary Disease | DX: J84.9 Interstitial pulmonary disease, unspecified (principal); J96.21 Acute and chronic respiratory failure with hypoxia | CPT/HCPCS: 99222 ==

== ENCOUNTER → 2024-05-09 16:11 | Outpatient (BNV) | payer OTHER, SELFPAY | PROVIDERS: Admitting Provider Student in an Organized Health Care Education/Training Program; Emergency Provider Emergency Medicine; Visit Provider Student in an Organized Health Care Education/Training Program | DX: J96.21 Acute and chronic respiratory failure with hypoxia (principal); B37.81 Candidal esophagitis; B37.0 Candidal stomatitis; J84.9 Interstitial pulmonary disease, unspecified; Z99.81 Dependence on supplemental oxygen | CPT/HCPCS: 99223; 99232; 99239 ==

== ENCOUNTER 2024-05-22 13:44 | Outpatient (AMB) | payer OTHER, SELFPAY ==
[2024-05-22 13:45] VITALS: BP 104/60; PULSE 104; O2SAT 97; BMI 19.7
--- NOTE | 2024-05-22 13:45 | A.OFFPC_ITS ---
Vital Signs 3 05/22/24 13:45 Height 5 ft 1 in Weight 104 lb 0.2 oz BMI 19.7 BP 104/60 Blood Pressure Location Rt brachial Position Sitting Pulse 104 H Pulse Source Pulse Oximeter Pulse Oximetry (%) 97 Oxygen Delivery Method Nasal Cannula Oxygen Flow Rate 2 Intake Visit Reasons: [facility] Intake Note: Patient is here for hospital discharge follow up. Patient was discharged from [facility] on 05/12/24 Allergies No Known Allergies [No Known Allergies*] Allergy (Verified 05/22/24 13:46) Medication List - Last Reconciled 05/22/24 by Sheri Jose PA-C acetaminophen (Tylenol Extra Strength) 500 mg PO Q6H PRN benzonatate 100 mg PO TID PRN compressor, for nebulizer As directed ferrous sulfate 325 mg PO DAILY 90 days fluconazole 100 mg PO DAILY 12 days levalbuterol HCl 1.25 mg (3 mL) inhalation Q4H PRN lidocaine 5% (Lidoderm) 1 patch topical DAILY PRN MDD remove after 12 hours frzssvcal-iacnumncgwaaue-qiym 3-2.5 % (7 gram) 1 appl LA BID PRN metronidazole 0.75% 1 appl topical BEDTIME nebulizers As directed nystatin 400,000 units (4 mL) buccal QID 5 days omeprazole 10 mg PO DAILY@0630 Oxygen Home Use As directed prednisone 50 mg PO DAILY trazodone 50 mg PO BEDTIME PRN Tobacco use date assessed: 09/06/23 Dental Screening Dental Screen Date: 09/06/23 HPI [facility] 2 HPI0 Details 48-year-old female with past medical his tory of interstitial lung disease, Crohn's disease, GERD, generalized anxiety disorder last seen 03/08/[address] Garcia coming in for hospital discharge follow up. In review of the notes patient was seen in [facility] ED 05/09/2024 for dyspnea on exertion admitted for acute on chronic hypoxic failure secondary to interstitial lung disease and fluid overload.? Patient was treated with IV Lasix and bronchodilator weaned off of oxygen. Patient was discharged home 05/12/2024 on prednisone, fluconazole and nystatin for candidal esophagitis and advised to follow up with Rheumatology and pulmonology. Patient presents today with her mom and powder coater was used for the duration of this visit. She tells us today her breathing has been much improved since discharge from the hospital. She has rarely had to use her nebulized treatments and oxygen use is back to her baseline. She states she is still having pain with swallowing has been improving and is using the fluconazole and Nystatin. She also mentions while in the hospital she was using a mask for therapy and developed a small blister on the left side of her upper lip the blister ruptured and left a large scab and is having scabbing all over her lip as well. She was using Vaseline on her lip as well as liking the area and believes this may be related to the scabbing. TCM 2 TCM Information0 Date of Discharge 05/12/24 Discharged From [facility] Medical History (Updated 05/22/24 @ 14:56 by Sheri Jose PA-C) ILD (interstitial lung disease) Supplemental oxygen dependent Breast cancer screening by mammogram Overweight (BMI 25.0-29.9) Abnormal CT scan, chest Hemorrhoids with complication Colon cancer screening Generalized abdominal pain Visual impairment Duodenal ulcer GERD (gastroesophageal reflux disease) Obesity (BMI 30-39.9) Menometrorrhagia Seizure in childhood Sclerosing mesenteritis GERD without esophagitis Surgical History History of esophagogastroduodenoscopy (EGD) Hx of colonoscopy Hx of cholecystectomy (~2005) Hx of hysterectomy Hx of section Family History Father No problems noted. Mother No problems noted. Daughter No problems noted. Son No problems noted. Brother Substance abuse Social History Household Members: Family Housing: House Do you presently have visiting nurse or other home services: No Alcohol intake: never Patient Tobacco Use Status: Never used Tobacco e-Cigarette/Vaping Use: Never Used Second Hand Smoke Exposure: No service: No Current occupational status: employed and unemployed Current occupation: [email or web address] Cognitive needs: No Hearing needs: No Vision needs: No Questionnaire Thrive Questionnaire Date Thrive assessed: 05/11/24 AUDIT C Alcohol Use Questionnaire (AUDIT-C) 1. How often do you have a drink containing alcohol?: Never 2. How many drinks containing alcohol do you have on a typical day when you are drinking?: 1 or 2 (0) 3. How often do you have six or more drinks on one occasion?: Never Total Score: 0 YSABEL-7 AMB Questionnaire YSABEL-7 Date YSABEL - 7 assessed: 09/06/23 Source: Developed by Drs. Jerod Grover, Heather Bennett, Georgi Contreras and colleagues, with an educational cristal from [employer]. Review of Systems Const Denies body aches, Denies chills, Denies fever(s), Denies headache(s) and Denies poor appetite Eyes Reports no additional complaints ENT Denies dysphagia, Denies dizziness, Denies headache(s) and Reports odynophagia Card Denies chest pain, Denies syncope, Denies edema, Denies irregular heart rhythm, Denies lightheadedness, Denies dyspnea and Reports dyspnea on exertion Resp Denies cough, Denies dyspnea and Reports dyspnea on exertion GI Denies dysphagia, Denies nausea, Reports odynophagia and Denies vomiting Reports no additional complaints Musc Reports no additional complaints and Denies abnormal gait Skin/Breast Reports system reviewed and no additional complaints, except as documented Neuro Denies abnormal gait, Denies dizziness, Denies syncope and Denies headache(s) Psych Reports no additional complaints Physical exam (Primary Care) Vital Signs: Last Vital Signs Pulse 104 H 05/22/24 13:45 BP 104/60 05/22/24 13:45 Pulse Ox 97 05/22/24 13:45 Oxygen Delivery Method Nasal Cannula 05/22/24 13:45 Oxygen Flow Rate 2 05/22/24 13:45 BMI result Body Mass Index 19.7 Tobacco/Smoking Status: Tobacco use Status Tobacco use date assessed 09/06/23 05/22/24 13:47 Patient Tobacco Use Status Never used Tobacco 05/22/24 13:47 e-Cigarette/Vaping Use Never Used 05/22/24 13:47 Thrive Assessment: Date of Thrive Assessment Date Thrive assessed 05/11/24 05/22/24 13:47 Const General: cooperative, healthy appearing, comfortable and no acute distress Orientation/consciousness: patient oriented x3 HENMT Head: Yes normocephalic Ears: hearing grossly normal bilaterally General nose exam: Normal external nose present Nose image: 2 1. Closed scab of bottom lip 2. Scab of upper lip Eyes General: appearance normal, both eyes and all related structures Conjunctivae: conjunctivae normal Neck Neck: Yes full ROM and Yes no lymphadenopathy Resp Effort & Inspection: normal respiratory effort Auscultation: clear to auscultation bilaterally, no crackles, no rales, no rhonchi and no wheezes Cardio Rate: regular rate Rhythm: regular rhythm Skin General skin exam: no rashes or lesions noted Neuro General: patient oriented x3 Gait exam (Neuro): Normal gait present Extrem General: Yes normal to inspection, Yes full ROM and No edema Psych Affect: normal affect Attitude: cooperative Insight: Good insight present (Psych) Judgement: Good judgement present (Psych) Coding Level of Care Code TCM Mod MDM <= 14 Days Complex EM visit Add On G2211 Diagnoses Gastroesophageal reflux disease without esophagitis K21.9 Esophagitis presence: without esophagitis ILD (interstitial lung disease) J84.9 JOE positive R76.8 Esophagitis K20.90 Blister T14.8XXA Assessment & Plan Assessment & Plan (1) GERD (gastroesophageal reflux disease): Code(s): K21.9 - Gastro-esophageal reflux disease without esophagitis Category: Medical Qualifiers: Esophagitis presence: without esophagitis Qualified Code(s): K21.9 - Gastro-esophageal reflux disease without esophagitis Plan: Avoid trigger foods such as citrus, tomato products, soda, caffeine, spicy foods and other foods that may be irritating to your stomach. Avoid laying flat 3-4 hours after eating and elevate the head of the bed 30 degrees to prevent acid from moving into the esophagus. (2) ILD (interstitial lung disease): Code(s): J84.9 - Interstitial pulmonary disease, unspecified Category: Medical Plan: Continue on inhalers and continue to follow with pulmonology. Completed course of steroids. Advised patient to follow up with pulmonology and reschedule CT scan. (3) JOE positive: Code(s): R76.8 - Other specified abnormal immunological findings in serum Category: Medical Plan: Patient was found to be JOE positive while admitted and referred to rheumatology for further workup. (4) Esophagitis: Code(s): K20.90 - Esophagitis, unspecified without bleeding Category: Medical Plan: Patient diagnosed with Mercedes esophagitis while in the hospital and presently on fluconazole and nystatin. Throat has been improving although is still having some mild pain with swallowing. Continue to monitor symptoms in his symptoms worsen or do not improve please reach out to the office. (5) Blister: Code(s): T14.8XXA - Other injury of unspecified body region, initial encounter Category: Medical Plan: Patient previously having a blister on the left side of the upper lip followed by scabbing and scabbing on the lower lip as well. Advised patient to discontinue using Vaseline as the seem to make it worse and avoid licking the lips. Keep the lips well hydrated with lotion or chapstick that is non irritating and continue to monitor for symptoms. Plan This note was constructed using voice recognition software. While every effort has been made to ensure accuracy and boiler service technician, still areas may have been included sometimes these areas may affect the content or meeting of the given symptoms. Total time spent caring for the patient today was 30 minutes. This includes time spent before the visit reviewing the chart, time spent during the visit, and time spent after the visit and documentation. Orders: Referrals 2 Rheumatology Referral R76.8 - Other specified abnormal immunological findings in serum
== END 2024-05-22 14:37 | disposition home or self-care (01) ==
PROVIDERS: PCP Internal Medicine
DX: K21.9 Gastro-esophageal reflux disease without esophagitis (principal); J84.9 Interstitial pulmonary disease, unspecified; R76.8 Other specified abnormal immunological findings in serum; K20.90 Esophagitis, unspecified without bleeding; T14.8XXA Other injury of unspecified body region, initial encounter

== ENCOUNTER → 2024-05-22 13:44 | Outpatient (BNVA) | payer OTHER, SELFPAY | PROVIDERS: PCP Internal Medicine | DX: K21.9 Gastro-esophageal reflux disease without esophagitis (principal); J84.9 Interstitial pulmonary disease, unspecified; R76.8 Other specified abnormal immunological findings in serum; K20.90 Esophagitis, unspecified without bleeding; T14.8XXA Other injury of unspecified body region, initial encounter | CPT/HCPCS: 99495 ==

== ENCOUNTER 2024-05-26 10:15 | Outpatient (REF) | payer OTHER, SELFPAY ==
--- NOTE | ~2024-05-26 | CT_ITS ---
EXAMINATION: CT CHEST WITHOUT CONTRAST CLINICAL INFORMATION: Interstitial pulmonary disease, unspecified. COMPARISON: CT chest dated March 27, 2024. TECHNIQUE: Multidetector volumetric CT imaging of the chest was done. Axial MIP volume rendering provided. Sagittal and coronal reformatted images were obtained. This CT examination was performed using dose optimization techniques as appropriate, variously including the following: *Automated exposure control *Adjustment of mA and/or kV according to patient size (this includes techniques or standardized protocols for targeted exams where dose is matched to indication/reason for exam; i.e. extremities or head) *Use of iterative reconstruction technique DLP: 116 mGy-cm FINDINGS: Submitted for interpretation on June 02, 2024. There is pneumomediastinum extending both cranially and caudally into the lower neck causing small volume of subcutaneous surrounding the thyroid gland and into the retrocrural of the diaphragm. Multiple of saccular and cylindrical bronchiectasis both lungs. Multiple, pulmonary thin wall cysts. There is questionable extension of the pneumomediastinum into the upper pleura compartment both upper thorax without overt pneumothorax. No pleural effusion. Focal peribronchial septal thickening involving the pulmonary cyst peripheral right middle lobe. There are areas of the segmental peribronchial septal thickening. The respiratory airway is grossly patent. There is some volume loss both lungs. There is a subtle diffuse patchy mosaic pattern. No pericardial effusion. No aneurysm, thoracic aorta. Calcified plaques in the coronary arteries. No gross mediastinal lymphadenopathy. Intra-abdominal organs included demonstrated status post cholecystectomy and prominent liver and spleen. There is a 1.5 cm low density nodule in the posterior right thyroid lobe. No axillary lymphadenopathy. Multilevel thoracic spondylosis without acute fracture or listhesis. S-shaped curvature of the thoracic spine. CT/CT chest wo IV con IMPRESSION: Pneumomediastinum, moderate volume. Consider barotrauma etiology. Discussed with the nurse practitioner for Dr. Stuart Greene ([place]) on June 02, 2024 at 10:20 AM. Interstitial lung disease with associated bronchiectasis and pulmonary cysts. Autoimmune and collagenous vascular diseases and pulmonary Langerhans' cell histiocytosis among other etiologies.. Fleischner guidelines were followed. Electronically signed by: All Cornejo MD 06/02/2024 10:38 AM [facility]
== END 2024-05-26 10:16 | disposition home or self-care (01) ==
LOC: HO.CT 10:15
PROVIDERS: PCP Internal Medicine; Visit Provider Internal Medicine Pulmonary Disease
DX: J84.9 Interstitial pulmonary disease, unspecified (principal)
CPT/HCPCS: 71250

== ENCOUNTER → 2024-05-26 10:17 | Outpatient (BNV) | payer OTHER, SELFPAY | PROVIDERS: PCP Internal Medicine; Visit Provider Radiology Diagnostic Radiology | DX: J84.9 Interstitial pulmonary disease, unspecified (principal) | CPT/HCPCS: 71250 ==

== ENCOUNTER 2024-05-31 08:46 | Outpatient (REF) | payer OTHER, SELFPAY ==
--- NOTE | 2024-05-31 08:49 | PFT_ITS ---
Flows: FEV1: 56 % of predicted at 1.43 L FVC: 48 % of predicted at 1.52 L FEV1/FVC: 94 % Bronchodilator response: Not performed Volumes: Patient unable to perform lung volume maneuvers secondary to significant anxiety. Diffusion capacity: Severely decreased adjusts to being moderately decreased after correction for alveolar ventilation. Impression: Suggestion of underlying restrictive ventilatory defect. No obstructive ventilatory defect. Bronchodilator testing was not performed. Patient was unable to perform lung volume maneuver secondary to significant anxiety. Decreased diffusion capacity with suspicion for restrictive ventilatory defect suggests underlying pulmonary parenchymal disease. Clinical correlation is advised. MTDD
== END 2024-05-31 08:47 | disposition home or self-care (01) ==
LOC: HO.RESP 08:46
PROVIDERS: PCP Internal Medicine; Visit Provider Internal Medicine Pulmonary Disease
DX: Z99.81 Dependence on supplemental oxygen (principal)
CPT/HCPCS: 94010; 94640; 94727; 94729

== ENCOUNTER → 2024-05-31 08:49 | Outpatient (BNV) | payer OTHER, SELFPAY | PROVIDERS: PCP Internal Medicine; Visit Provider Internal Medicine Pulmonary Disease | DX: R06.09 Other forms of dyspnea (principal); Z99.81 Dependence on supplemental oxygen | CPT/HCPCS: 94060; 94729 ==

== ENCOUNTER 2024-06-02 12:50 | Outpatient (REF) | payer OTHER, SELFPAY ==
--- NOTE | ~2024-06-02 | XR_ITS ---
EXAMINATION: XR CHEST CLINICAL INFORMATION: J98.2 - Interstitial emphysema COMPARISON: CT chest 05/26/2024 TECHNIQUE: 2 views of the chest were obtained. FINDINGS: Subtle groundglass infiltration and areas of bronchiectasis with basilar interstitial changes/fibrosis without significant change. No definite pneumomediastinum as demonstrated on the CT. XR/XR chest 2V IMPRESSION: No significant change in the appearance of the lungs. No definite pneumomediastinum. No pneumothorax. Electronically signed by: Jarad Mary MD 06/02/2024 04:39 PM [facility]
== END 2024-06-02 12:51 | disposition home or self-care (01) ==
LOC: HO.XRAY 12:50
PROVIDERS: PCP Internal Medicine; Visit Provider Hospitalist
DX: J98.2 Interstitial emphysema (principal)
CPT/HCPCS: 71046

== ENCOUNTER 2024-06-06 12:55 | Outpatient (REF) | payer OTHER, SELFPAY ==
[2024-06-06 16:01] LABS: Albumin Level 2.8 g/dL (3.5-5.0); Anion Gap 11 (12-20); Aspartate Amino Transferase 30 U/L (5-31); Bilirubin Total 0.2 mg/dL (0.0-1.0); Blood Urea Nitrogen 19 mg/dL (9-16); C Reactive Protein 0.86 mg/dL (< or = 0.50); Calcium 8.7 mg/dL (8.4-10.2); Carbon Dioxide 29 mmol/L (22-29); Chloride 104 mmol/L (96-108); Estimated Glomerular Filt Rate > 60; Ferritin 254 ng/mL (10-250); Glucose Random 91 mg/dL (60-115); Sodium 140 mmol/L (135-145); TSH reflex Free T4 1.66 uIU/mL (0.32-4.0); Total Protein 7.1 g/dL (6.5-8.0)
[2024-06-06 16:18] LABS: Alanine Aminotransferase 62 U/L (0-31); Alkaline Phosphatase 72 U/L (39-117)
[2024-06-14 16:43] LABS: Calprotectin, Fecal 183 mcg/g
== END 2024-06-06 12:56 | disposition home or self-care (01) ==
LOC: HO.LAB 12:55
PROVIDERS: Internal Medicine Gastroenterology; PCP Internal Medicine; Visit Provider Internal Medicine Pulmonary Disease
DX: J84.9 Interstitial pulmonary disease, unspecified (principal); J98.2 Interstitial emphysema; R76.8 Other specified abnormal immunological findings in serum; Z99.81 Dependence on supplemental oxygen; K50.10 Crohn's disease of large intestine without complications
CPT/HCPCS: 36415; 80053; 82728; 83993; 84443; 86140; 99212

== ENCOUNTER 2024-06-06 12:55 | Outpatient (AMB) | payer OTHER, SELFPAY ==
--- NOTE | 2024-06-06 13:04 | MHC.OFFVIS ---
Vital Signs 06/06/24 13:05 Height 5 ft 1 in Weight 117 lb 15.157 oz BMI 22.3 BP 118/67 Blood Pressure Location Rt brachial Position Sitting Pulse 143 H Pulse Source Doppler Pulse Oximetry (%) 90 L Oxygen Delivery Method Nasal Cannula Oxygen Flow Rate 4 Intake Visit Reasons: Dyspnea, CT & PFT results Sales Representative Advertising Required: Yes Sales Representative Advertising Name: Ava Styles [email or web address] Allergies No Known Allergies [No Known Allergies*] Allergy (Verified 06/08/24 10:10) HPI HPI Dyspnea, CT & PFT results: Details: 48-year-old lady, nonsmoker, with history of COVID-19 back in 2019, with no respiratory complaints who was being worked up for abdominal discomfort and had CT abdomen pelvis that demonstrated multiple diffuse small bilateral pulmonary nodules.? Patient was evaluated by infectious Disease service and sent for pulmonary evaluation.? She had pulmonary function tests that shows mild restrictive physiology with decreased diffusion capacity suggestive of possible underlying interstitial lung disease. Her CT chest also showed multiple small diffuse bilateral pulmonary nodules. Patient decided that she does not want to proceed with further laboratory testing and was lost for follow-up for over 2 years. After re-presentation patient with significantly symptomatically worsened interstitial lung disease, likely connective tissue associated as patient has high JOE titers, with recent exacerbation requiring hospitalization and intermediate dose systemic glucocorticoids with some improvement, further complicated by candidal esophagitis, now resolved after fluconazole therapy. She continues to require supplemental oxygen at 4-5 L continuously. Further complicated by development of pneumomediastinum with follow-up CT chest pending. Patient also continues on prednisone 50 mg daily. She is also complaining of significant persistent tachycardia in to 140s. [facility] Medical History Supplemental oxygen dependent Pneumomediastinum ILD (interstitial lung disease) Breast cancer screening by mammogram Overweight (BMI 25.0-29.9) Abnormal CT scan, chest Hemorrhoids with complication Colon cancer screening Generalized abdominal pain Visual impairment Duodenal ulcer GERD (gastroesophageal reflux disease) Obesity (BMI 30-39.9) Menometrorrhagia Seizure in childhood Sclerosing mesenteritis GERD without esophagitis Surgical History History of esophagogastroduodenoscopy (EGD) Hx of colonoscopy Hx of cholecystectomy (~2005) Hx of hysterectomy Hx of section Family History Father No problems noted. Mother No problems noted. Daughter No problems noted. Son No problems noted. Brother Substance abuse Social History Household Members: Family Housing: House Do you presently have visiting nurse or other home services: No Alcohol intake: never Patient Tobacco Use Status: Never used Tobacco e-Cigarette/Vaping Use: Never Used Second Hand Smoke Exposure: No service: No Current occupational status: employed and unemployed Current occupation: [employer] Cognitive needs: No Hearing needs: No Vision needs: No Review of Systems Card Reports palpitations, Reports dyspnea and Reports dyspnea on exertion Resp Denies cough, Denies excessive phlegm production, Reports dyspnea, Reports dyspnea on exertion and Denies wheezing Endo Reports palpitations Aller/Immun Denies wheezing Physical Exam Vital Signs: Last Vital Signs Pulse 143 H 06/06/24 13:05 BP 118/67 06/06/24 13:05 Pulse Ox 90 L 06/06/24 13:05 Oxygen Delivery Method Nasal Cannula 06/06/24 13:05 Oxygen Flow Rate 4 06/06/24 13:05 BMI result Body Mass Index 22.3 Const Other: Malar rash General: no acute distress and alert Nutritional Appearance: not obese Orientation/consciousness: Other orientation findings ( oriented) HEENT Head: Yes atraumatic Eyes General: appearance normal, both eyes and all related structures Sclerae: sclerae normal EOM: EOMs intact bilaterally Neck Neck: Yes supple Lymphatic: no lymphadenopathy noted Resp Effort & Inspection: normal respiratory effort and no use of accessory muscles Auscultation: clear to auscultation bilaterally Cardio Rate: tachycardic Rhythm: regular rhythm Heart sounds: no gallops, no murmurs and no rubs Skin General skin exam: other ( warm) Extrem General: No clubbing, No cyanosis and No edema Assessment & Plan Assessment & Plan (1) ILD (interstitial lung disease): Code(s): J84.9 - Interstitial pulmonary disease, unspecified Category: Medical Plan: Likely related to underlying connective tissue disease or inflammatory disease/Crohn's. Continue on current prednisone dose. (2) Pneumomediastinum: Code(s): J98.2 - Interstitial emphysema Category: Medical Plan: Essentially asymptomatic. Follow-up CT chest is pending. (3) Supplemental oxygen dependent: Code(s): Z99.81 - Dependence on supplemental oxygen Category: Medical Plan: Continue supplemental oxygen to maintain O2 saturation above 88%. (4) JOE positive: Code(s): R76.8 - Other specified abnormal immunological findings in serum Category: Medical Plan: Urgent rheumatologic consultation requested. Orders: Orders Erythrocyte Sedimentation Rate 06/08/24 R76.8 - Other specified abnormal immunological findings in serum Complement C3 06/08/24 R76.8 - Other specified abnormal immunological findings in serum Complement C4 06/08/24 R76.8 - Other specified abnormal immunological findings in serum TSH reflex Free T4 06/08/24 J84.9 - Interstitial pulmonary disease, unspecified Cardiolipin Antibodies 06/08/24 R76.8 - Other specified abnormal immunological findings in serum Lupus Anticoagulant Panel 06/08/24 R76.8 - Other specified abnormal immunological findings in serum Coding Level of Care Code Est Pt Level 5 (51068) Complex EM visit Add On G2211 Diagnoses ILD (interstitial lung disease) J84.9 Pneumomediastinum J98.2 Supplemental oxygen dependent Z99.81 JOE positive R76.8
[2024-06-06 13:05] VITALS: BP 118/67; PULSE 143; O2SAT 90; BMI 22.3
== END 2024-06-06 13:58 | disposition home or self-care (01) ==
PROVIDERS: PCP Internal Medicine; Visit Provider Internal Medicine Pulmonary Disease
DX: J98.2 Interstitial emphysema (principal); Z99.81 Dependence on supplemental oxygen; R76.8 Other specified abnormal immunological findings in serum
CPT/HCPCS: 99214; G2211

== ENCOUNTER 2024-06-08 09:46 | Outpatient (AMB) | payer OTHER, SELFPAY ==
--- NOTE | 2024-06-08 10:07 | MHC.OFFVIS ---
Vital Signs 06/08/24 10:11 Height 5 ft 1 in Weight 117 lb 8.102 oz BMI 22.2 BP 90/60 Blood Pressure Location Lt brachial Position Sitting Pulse 121 H Pulse Source Pulse Oximeter Pulse Oximetry (%) 94 Oxygen Delivery Method Room Air Intake Visit Reasons: abnormal lab Intake Note: Patient presents for abnormal lab. Cook Seafood Required: Yes Cook Seafood Language: [employer] Services: Cook Seafood Present Cook Seafood Name: Rea [id number] Information Interpreted: non-clinical & clinical Allergies No Known Allergies [No Known Allergies*] Allergy (Verified 06/08/24 10:10) Medication List - Last Reconciled 06/08/24 by Donal Gonzalez MD acetaminophen (Tylenol Extra Strength) 500 mg PO Q6H PRN amoxicillin-pot clavulanate 875-125 mg 1 tab PO BID 10 days benzonatate 100 mg PO TID PRN compressor, for nebulizer As directed ferrous sulfate 325 mg PO DAILY 90 days fluconazole 100 mg PO DAILY 12 days levalbuterol HCl 1.25 mg (3 mL) inhalation Q4H PRN lidocaine 5% (Lidoderm) 1 patch topical DAILY PRN MDD remove after 12 hours rruuaztmb-tshmeatenmejco-nsec 3-2.5 % (7 gram) 1 appl [place] BID PRN metronidazole 0.75% 1 appl topical BEDTIME nebulizers As directed nystatin 400,000 units (4 mL) buccal QID 5 days omeprazole 10 mg PO DAILY@0630 Oxygen Home Use As directed prednisone 50 mg PO DAILY trazodone 50 mg PO BEDTIME PRN HPI Comments Details: This is a 48-year-old female with history of IgA gammopathy, Crohn's disease in ILD who presents for follow-up. 2021 patient was found to have interstitial lung disease and further workup was ordered, apparently patient was lost to follow-up, she presented to the hospital last month with acute on chronic hypoxemic respiratory failure, she needed oxygen supplementation and steroids, repeat CT chest showed worsening ILD. Labs showed a positive JOE. She is referred to Rheumatology for evaluation of an underlying autoimmune rheumatic disease. Patient states that she has lost 50-60 lb since the beginning of this year mostly due to reduced appetite. She also states that she has had some leg and hip weakness, difficulty climbing stairs, no other muscle weakness, denies any swelling in her joints. She denies any new rashes other than the known rosacea of her face. She denies any history of DVT/PE. Patient's mother states that she has rheumatoid arthritis. Patient had 3 pregnancies in total, 3 children, no abortions or miscarriages , she denies history suggestive of Raynaud's [facility] Medical History Supplemental oxygen dependent Pneumomediastinum ILD (interstitial lung disease) Breast cancer screening by mammogram Overweight (BMI 25.0-29.9) Abnormal CT scan, chest Hemorrhoids with complication Colon cancer screening Generalized abdominal pain Visual impairment Duodenal ulcer GERD (gastroesophageal reflux disease) Obesity (BMI 30-39.9) Menometrorrhagia Seizure in childhood Sclerosing mesenteritis GERD without esophagitis Surgical History History of esophagogastroduodenoscopy (EGD) Hx of colonoscopy Hx of cholecystectomy (~2005) Hx of hysterectomy Hx of section Family History Father No problems noted. Mother No problems noted. Daughter No problems noted. Son No problems noted. Brother Substance abuse Social History Household Members: Family Housing: House Do you presently have visiting nurse or other home services: No Alcohol intake: never Patient Tobacco Use Status: Never used Tobacco e-Cigarette/Vaping Use: Never Used Second Hand Smoke Exposure: No service: No Current occupational status: employed and unemployed Current occupation: [employer] Cognitive needs: No Hearing needs: No Vision needs: No Female Reproductive History Menstrual Total pregnancies: 3 Full term: 3 Review of Systems Const Reports weakness and Reports weight loss Card Reports dyspnea and Reports dyspnea on exertion Resp Reports cough, Reports dyspnea and Reports dyspnea on exertion GI Reports no additional complaints Musc Denies arthralgias, Denies joint swelling and Reports muscle weakness Skin/Breast Denies rash Neuro Reports weakness Physical Exam Vital Signs: Last Vital Signs Pulse 121 H 06/08/24 10:11 BP 90/60 06/08/24 10:11 Pulse Ox 94 06/08/24 10:11 Oxygen Delivery Method Room Air 06/08/24 10:11 BMI result Body Mass Index 22.2 Const General: cooperative, healthy appearing and comfortable Nutritional Appearance: average body habitus Orientation/consciousness: patient oriented x3 Limitations: no limitations HEENT Head: Yes normocephalic and Yes atraumatic Mouth: oropharynx normal and moist mucous membranes Resp Other: On 4 L of oxygen by nasal cannula Effort & Inspection: normal respiratory effort and able to speak in complete sentences Auscultation: rales bilateral Cardio Rate: regular rate and tachycardic Rhythm: regular rhythm Skin Other: Erythematous rash on her face, some purplish discoloration of her eyelids Mild purplish discoloration of her fingertips Neuro General: patient oriented x3 Extrem Other: Mild purplish discoloration of her fingertips but fingers are warm and well perfused No active synovitis Normal bilateral hand hardness tester strength Normal muscle strength 5/5 Bilateral hip flexor 4+ out of 5 Normal nailfold capillaroscopy Assessment & Plan Assessment & Plan (1) JOE positive: Code(s): R76.8 - Other specified abnormal immunological findings in serum Category: Medical Plan: This is a 48-year-old female who presents for evaluation of a positive JOE in the setting of progressively worsening interstitial lung disease. She has history of IgA gammopathy and Crohn's disease. Patient was found to have interstitial lung disease back in 2021, apparently was lost to follow-up, she presented last month to the hospital with hypoxemic respiratory failure requiring oxygen supplementation. She was treated with steroids and discharged. Unfortunately she is now oxygen dependent. I will order comprehensive serology to screen for underlying autoimmune rheumatic disease Follow-up in 4 weeks Plan I spent 46 minutes reviewing patient's chart, evaluating patient, ordering diagnostic workup, counseling patient and documenting in the chart Orders: Orders Complement C3 Today M32.9 - Systemic lupus erythematosus, unspecified UA w Microscopic Today M32.9 - Systemic lupus erythematosus, unspecified Comprehensive Met. Panel Today M32.9 - Systemic lupus erythematosus, unspecified Erythrocyte Sedimentation Rate Today M32.9 - Systemic lupus erythematosus, unspecified Hepatitis A,B,C Profile Today Z11.59 - Encounter for screening for other viral diseases Protein Electrophoresis, Serum Today M32.9 - Systemic lupus erythematosus, unspecified ANCA Vasculitides Today I77.6 - Arteritis, unspecified MSA Panel Extended Today M60.9 - Myositis, unspecified Cyclic Citrullinated Peptide Today M25.50 - Pain in unspecified joint C1q Antibody IgG Today I77.6 - Arteritis, unspecified C1Q Complement Component Today I77.6 - Arteritis, unspecified Beta-2 Glycoprotein Antibody Today D68.61 - Antiphospholipid syndrome Anti Extractable Nuclear Ag Today M32.9 - Systemic lupus erythematosus, unspecified Anti DNA DS Antibody Today M32.9 - Systemic lupus erythematosus, unspecified Complement C4 Today M32.9 - Systemic lupus erythematosus, unspecified C Reactive Protein Today M32.9 - Systemic lupus erythematosus, unspecified DNA Double Stranded-Crithidia Today M32.9 - Systemic lupus erythematosus, unspecified Protein Creatinine Ratio, Ur Today M32.9 - Systemic lupus erythematosus, unspecified Sjogren's Antibodies Today M32.9 - Systemic lupus erythematosus, unspecified Complete Blood Count Auto Diff Today M32.9 - Systemic lupus erythematosus, unspecified Creatine Kinase Total Today G72.9 - Myopathy, unspecified Immunofixation Pnl, Serum Today M32.9 - Systemic lupus erythematosus, unspecified T Spot TB Today M32.9 - Systemic lupus erythematosus, unspecified Scleroderma 12 Panel Today M34.9 - Systemic sclerosis, unspecified Cardiolipin Antibodies Today D68.61 - Antiphospholipid syndrome Lupus Anticoagulant Panel Today D68.61 - Antiphospholipid syndrome Angiotensin Converting Enzyme Today D86.9 - Sarcoidosis, unspecified Lysozyme, Serum Today D86.9 - Sarcoidosis, unspecified Coding Level of Care Code New Pt Level 4 (89342) Diagnoses JOE positive R76.8
[2024-06-08 10:11] VITALS: BP 90/60; PULSE 121; O2SAT 94; BMI 22.2
== END 2024-06-08 10:57 | disposition home or self-care (01) ==
PROVIDERS: PCP Internal Medicine; Visit Provider Student in an Organized Health Care Education/Training Program
DX: R76.8 Other specified abnormal immunological findings in serum (principal)
CPT/HCPCS: 99204

== ENCOUNTER 2024-06-08 09:46 | Outpatient (REF) | payer OTHER, SELFPAY ==
[2024-06-08 12:03] LABS: MANUAL DIFF FLAG NO
[2024-06-08 12:22] LABS: Appearance Urine Clear; Color Urine Yellow; Glucose Urine UA Negative (Negative); Leukocyte Esterase Urine Negative (Negative); Nitrite Urine Negative (Negative); PH 5.5 (5.0-9.0); Specific Gravity - Urine 1.025 (1.005-1.025); UMIC TRIGGER UA YES; Urine Blood Moderate (2+) (Negative); Urine Ketones Negative (Negative); Urine Protein Trace mg/dL (Neg-Trace)
[2024-06-08 12:23] LABS: Basophils Absolute Auto 0.1 X10*3/uL (0.0-0.2); Basophils Percent Auto 0.7 % (0-2); Eosinophils Absolute Auto 0.1 X10*3/uL (0.0-0.4); Hematocrit 40.4 % (37.0-47.0); Imm Gran Abs Auto 0.08 X10*3/uL (0.00-0.03); Imm Gran Pct Auto 0.9 % (0.0-0.4); Lymphocytes Percent Auto 21.8 % (20-40); Mean Corpuscular HGB Conc 32.2 g/dl (31.0-35.0); Mean Corpuscular Volume 86.9 fL (80.0-98.0); Mean Platelet Volume 9.2 fL (9.4-12.3); Monocytes Absolute Auto 0.7 X10*3/uL (0.1-1.2); Monocytes Percent Auto 7.8 % (2-11); Neutrophils Absolute Auto 6.1 x10*3/uL (2.0-8.3); Neutrophils Percent Auto 67.8 % (45-73); Platelet Count 301 X10*3/uL (160-400); Red Blood Count 4.65 X10*6/uL (4.20-5.50); Red Cell Distribution Width 14.6 % (11.0-16.0)
[2024-06-08 12:38] LABS: Bacteria Urine None Seen (None Seen); Calcium Oxalate Crystals Urine Present; Hyaline Casts Urine 0-2 /LPF (0-2); Squamous Epithelial Cell Urine 0-2 /HPF (0-2); WBC Urine 0-5 /HPF (0-5)
[2024-06-08 12:45] LABS: Creatinine Urine 89.31 mg/dL; Protein/Creatinine Ratio, Ur 0.34 (<0.2); Total Protein Urine Random 30 mg/dL (<12)
[2024-06-08 12:59] LABS: Alanine Aminotransferase 68 U/L (0-31); Alkaline Phosphatase 73 U/L (39-117); Anion Gap 10 (12-20); Aspartate Amino Transferase 34 U/L (5-31); Bilirubin Total 0.3 mg/dL (0.0-1.0); Blood Urea Nitrogen 16 mg/dL (9-16); C Reactive Protein 0.62 mg/dL (< or = 0.50); Calcium 9.5 mg/dL (8.4-10.2); Carbon Dioxide 31 mmol/L (22-29); Chloride 104 mmol/L (96-108); Estimated Glomerular Filt Rate > 60; Glucose Random 79 mg/dL (60-115); Potassium 3.7 mmol/L (3.3-5.1); Sodium 141 mmol/L (135-145); Total Protein 7.9 g/dL (6.5-8.0)
[2024-06-08 13:01] LABS: Erythrocyte Sedimentation Rate 62 MM/HR (0-20)
[2024-06-08 13:07] LABS: TSH reflex Free T4 1.97 uIU/mL (0.32-4.0)
[2024-06-08 13:14] LABS: HBS Num1 1.32 mIU/mL (0-7.99); HBc Num1 0.19 S/CO (0.00-0.79); HBsAGNum1 0.42 S/CO (0.00-0.99); Hepatitis A Antibody IgM 0.19 Index (0-0.79); Hepatitis B Core Antibody Nonreactive (Nonreactive); Hepatitis B Surface Antigen Negative (Negative); ~HepC Num1 0.55 S/CO (0.00-0.79); ~Hepatitis A Antibody IgM Nonreactive (Nonreactive); ~Hepatitis B Surface Antibody NONREACTIVE (Nonreactive); ~Hepatitis C Antibody Nonreactive (Nonreactive)
[2024-06-09 14:24] LABS: Anti DNA DS Antibody <1 IU/mL; Antibody to SS-A Antigen <1.0 NEG AI (<1.0 NEG); Antibody to SS-B Antigen <1.0 NEG AI (<1.0 NEG); Myeloperoxidase Antibody <1.0 AI; Proteinase 3 PR3 Antibodies <1.0 AI; SM/Ribonucleoprotein Ab <1.0 NEG AI (<1.0 NEG); Smith Protein <1.0 NEG AI (<1.0 NEG)
[2024-06-09 15:38] LABS: Complement C3 134 mg/dL (83-193)
[2024-06-09 20:34] LABS: Cardiolipin IgG Ab 4.1 GPL-U/mL; Cardiolipin IgM Ab 2.8 MPL-U/mL
[2024-06-11 04:59] LABS: TS Negative Control Passed; TS Panel A 0; TS Panel B 0; TS Positive Control Passed; TSpotTB Negative (Negative)
[2024-06-12 11:29] LABS: Angiotensin Converting Enzyme 37.5 U/L (9-67)
[2024-06-13 05:01] LABS: PTT (LAC) Screen 30 sec (<=40)
[2024-06-13 06:52] LABS: Prot Elec - Alpha1 0.3 g/dL (0.2-0.3); Prot Elec - Alpha2 0.8 g/dL (0.5-0.9); Prot Elec - Beta 1 0.4 g/dL (0.4-0.6); Prot Elec - Beta 2 0.5 g/dL (0.2-0.5); Prot Elec - Gamma 2.4 g/dL (0.8-1.7); Prot Elec - Total Protein 7.5 g/dL (6.1-8.1)
[2024-06-13 15:23] LABS: DNAds, Crithidia Antibody Negative (Negative)
[2024-06-13 17:48] LABS: IgA 679 mg/dL (47-310); IgG 2190 mg/dL (600-1640); IgM 455 mg/dL (50-300)
[2024-06-13 21:59] LABS: Lysozyme, Serum 8.5 mcg/mL (5.0-11.0)
[2024-06-13 22:38] LABS: Cyclic Citrullinated Peptide <16 UNITS
[2024-06-14 11:48] LABS: C1q Antibody IgG 1 RU/mL (<26)
[2024-06-14 22:28] LABS: Beta-2 Glycoprotein IgA 2.8 U/mL (<20.0); Beta-2 Glycoprotein IgG 2.7 U/mL (<20.0); Beta-2 Glycoprotein IgM 2.8 U/mL (<20.0)
[2024-06-15 01:44] LABS: Centromere Protein A Ab <11 SI (<11); Centromere Protein B Ab <11 SI (<11); Fibrillarin Ab <11 SI (<11); PM SCL 100 Ab <11 SI (<11); PM SCL 75 Ab <11 SI (<11); RNA Polymerase III RP11 Ab <11 SI (<11); RNA Polymerase III RP155 Ab <11 SI (<11); SCL-70 Extractable Nuclear Ab <11 SI (<11); Th-To Ab <11 SI (<11); U1 SNRNP RNP 70KD <11 SI (<11); U1 SNRNP RNP A <11 SI (<11); U1 SNRNP RNP C <11 SI (<11)
[2024-06-15 18:13] LABS: C1Q Complement Component 6.7 mg/dL (5.0-8.6)
[2024-06-17 01:14] LABS: Cytosolic 5'nuc 1A Ab IgG 6 Units; Ej Ab <11 SI (<11); HMGCR Ab IgG <2 CU (<20); Jo-1 Ab <11 SI (<11); MDA5 Ab <11 SI (<11); Mi-2 alpha Ab <11 SI (<11); Mi-2 beta Ab <11 SI (<11); NXP-2 (MJ) Ab <11 SI (<11); Oj Ab <11 SI (<11); Pl-12 Ab <11 SI (<11); Pl-7 Ab <11 SI (<11); SRP Ab <11 SI (<11); TIF1 gamma Ab <11 SI (<11)
== END 2024-06-08 09:47 | disposition home or self-care (01) ==
LOC: HO.LAB 09:46
PROVIDERS: Internal Medicine Pulmonary Disease; PCP Internal Medicine; Visit Provider Student in an Organized Health Care Education/Training Program
DX: R76.8 Other specified abnormal immunological findings in serum (principal); J84.9 Interstitial pulmonary disease, unspecified; M32.9 Systemic lupus erythematosus, unspecified; I77.6 Arteritis, unspecified; M60.9 Myositis, unspecified; D68.61 Antiphospholipid syndrome; G72.9 Myopathy, unspecified; M34.9 Systemic sclerosis, unspecified; Z11.59 Encounter for screening for other viral diseases; M25.50 Pain in unspecified joint; D86.9 Sarcoidosis, unspecified; K50.90 Crohn's disease, unspecified, without complications; D47.2 Monoclonal gammopathy
CPT/HCPCS: 36415; 80053; 81001; 82164; 82550; 82570; 82784; 83516; 83520; 84156; 84165; 84182; 84443; 85025; 85549; 85597; 85598; 85613; 85652; 85730; 86021; 86140; 86146; 86147; 86160; 86200; 86225; 86235; 86255; 86334; 86481; 86704; 86706; 86709; 86803; 87340; 99202

== ENCOUNTER 2024-06-13 07:44 | Outpatient (REF) | payer OTHER, SELFPAY ==
--- NOTE | ~2024-06-13 | CT_ITS ---
EXAMINATION: CT CHEST WITHOUT CONTRAST CLINICAL INFORMATION: Interstitial emphysema. COMPARISON: Chest x-ray June 02, 2024. CT chest May 26, 2024 TECHNIQUE: Multidetector volumetric CT imaging of the chest was done. Axial MIP volume rendering provided. Sagittal and coronal reformatted images were obtained. This CT examination was performed using dose optimization techniques as appropriate, variously including the following: *Automated exposure control *Adjustment of mA and/or kV according to patient size (this includes techniques or standardized protocols for targeted exams where dose is matched to indication/reason for exam; i.e. extremities or head) *Use of iterative reconstruction technique DLP: 84 mGy-cm FINDINGS: LUNGS: Redemonstration of the saccular and cylindrical bronchiectasis involving both lungs. Diffuse peribronchial septal thickening similar prior study. Focal peribronchial septal thickening. Multiple thin-walled cysts mostly in the periphery of the lung the upper lobes. MEDIASTINUM: Interval resolution of pneumomediastinum since prior CT. Prominent mediastinal lymph nodes in the pretracheal retrovascular space and AP window right paratracheal region measuring up to a short axis diameter 1.3 cm. Heart size normal. No pericardial effusion. No aneurysm of aorta. Stable 1 cm hypodense nodule right lobe of thyroid. No further follow-up imaging recommended. CORONARY ARTERY CALCIFICATION: Small volume of coronary calcification. PLEURA: There is no pleural effusion. No pleural mass or thickening. There is no pneumothorax. AXILLA: No lymphadenopathy. UPPER ABDOMEN: Status post cholecystectomy. Adrenal glands are normal. OSSEOUS STRUCTURES: Unremarkable. CT/CT chest wo IV con IMPRESSION: 1. Redemonstration of the saccular and cylindrical bronchiectasis involving both lungs. Diffuse peribronchial septal thickening similar prior study. 2. Interval resolution of pneumomediastinum since prior CT. 3. Prominent mediastinal lymph nodes. These may be reactive. Fleischner guidelines were followed. Electronically signed by: Mckinley Sullivan MD 06/13/2024 05:01 PM BAMBI
== END 2024-06-13 07:45 | disposition home or self-care (01) ==
LOC: HO.CT 07:44
PROVIDERS: PCP Internal Medicine; Visit Provider Internal Medicine Pulmonary Disease
DX: J98.2 Interstitial emphysema (principal)
CPT/HCPCS: 71250

== ENCOUNTER 2024-06-20 10:40 | Outpatient (AMB) | payer OTHER, SELFPAY ==
[2024-06-20 10:42] VITALS: BP 109/62; PULSE 144; O2SAT 86; BMI 23.6
--- NOTE | 2024-06-20 10:42 | A.OFFVIS_ITS ---
Vital Signs 06/20/24 10:42 Height 5 ft 1 in Weight 125 lb BMI 23.6 BP 109/62 Blood Pressure Location Rt brachial Position Sitting Pulse 144 H Pulse Source Doppler Pulse Oximetry (%) 86 L Oxygen Delivery Method Nasal Cannula Oxygen Flow Rate 4 Intake Visit Reasons: Dyspnea/CT Follow Up Fisher Trawl Net Required: Yes Fisher Trawl Net Name: Ava Styles VirginiaLJesúsM Allergies No Known Allergies [No Known Allergies*] Allergy (Verified 06/20/24 10:49) HPI HPI Dyspnea/CT Follow Up: Details: 48-year-old lady, nonsmoker, with history of COVID-19 back in 2019, with no respiratory complaints who was being worked up for abdominal discomfort and had CT abdomen pelvis that demonstrated multiple diffuse small bilateral pulmonary nodules.? Patient was evaluated by infectious Disease service and sent for pulmonary evaluation.? She had pulmonary function tests that shows mild restrictive physiology with decreased diffusion capacity suggestive of possible underlying interstitial lung disease. Her CT chest also showed multiple small d iffuse bilateral pulmonary nodules. Patient decided that she does not want to proceed with further laboratory testing and was lost for follow-up for over 2 years. After re-presentation patient with significantly symptomatically worsened interstitial lung disease, likely connective tissue associated as patient has high JOE titers, with recent exacerbation requiring hospitalization and intermediate dose systemic glucocorticoids with some improvement, further complicated by candidal esophagitis, now resolved after fluconazole therapy. She continues to require supplemental oxygen at 4-5 L continuously. Her pneumomediastinum has resolved follow-up CT chest. Unfortunately, ILD symptoms suboptimally controlled prednisone 50 mg daily and she started to develop stigmata of chronic prednisone use. [facility] Medical History Supplemental oxygen dependent Pneumomediastinum ILD (interstitial lung disease) Breast cancer screening by mammogram Overweight (BMI 25.0-29.9) Abnormal CT scan, chest Hemorrhoids with complication Colon cancer screening Generalized abdominal pain Visual impairment Duodenal ulcer GERD (gastroesophageal reflux disease) Obesity (BMI 30-39.9) Menometrorrhagia Seizure in childhood Sclerosing mesenteritis GERD without esophagitis Surgical History History of esophagogastroduodenoscopy (EGD) Hx of colonoscopy Hx of cholecystectomy (~2005) Hx of hysterectomy Hx of section Family History Father No problems noted. Mother No problems noted. Daughter No problems noted. Son No problems noted. Brother Substance abuse Social History Household Members: Family Housing: House Do you presently have visiting nurse or other home services: No Alcohol intake: never Patient Tobacco Use Status: Never used Tobacco e-Cigarette/Vaping Use: Never Used Second Hand Smoke Exposure: No service: No Current occupational status: employed and unemployed Current occupation: [employer] Cognitive needs: No Hearing needs: No Vision needs: No Review of Systems Const Denies daytime sleepiness, Denies excessive sweating, Denies fatigue, Denies fever(s), Denies lethargy, Denies malaise, Denies night sweats, Denies snoring and Denies weight loss Eyes Denies blurry vision and Denies itchy eyes ENT Denies nasal congestion, Denies post nasal drip, Denies sinus pain, Denies sinus pressure and Denies other ( Thrush) Card Denies chest pain, Denies pedal edema, Denies dyspnea, Reports dyspnea on exertion, Denies orthopnea and Denies paroxysmal nocturnal dyspnea Resp Denies cough, Denies hemoptysis, Denies excessive phlegm production, Denies dyspnea, Reports dyspnea on exertion, Denies snoring and Denies wheezing GI Denies abdominal pain and Denies heartburn Musc Denies myalgias, Denies arthralgias and Denies joint swelling Neuro Denies memory loss and Denies seizure-like activity Psych Denies abnormal sleep pattern, Denies anxiety and Denies memory loss Endo Denies excessive sweating, Denies fatigue and Denies heat intolerance Remy/Lymph Denies easy bruising Aller/Immun Denies itchy eyes, Denies seasonal rhinorrhea and Denies wheezing Physical Exam Vital Signs: Last Vital Signs Pulse 144 H 06/20/24 10:42 BP 109/62 06/20/24 10:42 Pulse Ox 86 L 06/20/24 10:42 Oxygen Delivery Method Nasal Cannula 06/20/24 10:42 Oxygen Flow Rate 4 06/20/24 10:42 BMI result Body Mass Index 23.6 Const General: no acute distress and alert Nutritional Appearance: not obese Orientation/consciousness: Other orientation findings ( oriented) HEENT Head: Yes atraumatic Eyes General: appearance normal, both eyes and all related structures Sclerae: sclerae normal EOM: EOMs intact bilaterally Neck Neck: Yes supple Lymphatic: no lymphadenopathy noted Resp Effort & Inspection: normal respiratory effort and no use of accessory muscles Auscultation: clear to auscultation bilaterally Cardio Rate: regular rate Rhythm: regular rhythm Heart sounds: no gallops, no murmurs and no rubs Skin General skin exam: other ( warm) Extrem General: No clubbing, No cyanosis and No edema Assessment & Plan Assessment & Plan (1) ILD (interstitial lung disease): Code(s): J84.9 - Interstitial pulmonary disease, unspecified Category: Medical Plan: Suboptimal control on prednisone and also with development of chronic prednisone use stigmata. Does have underlying Crohn's. Will start on azathioprine with weekly increased. Will taper off prednisone. (2) Supplemental oxygen dependent: Code(s): Z99.81 - Dependence on supplemental oxygen Category: Medical Plan: Continue supplemental oxygen to maintain O2 saturation above 89%. (3) Pneumomediastinum: Code(s): J98.2 - Interstitial emphysema Category: Medical Plan: Results of CT chest reviewed, pneumomediastinum has resolved. Medications: New prednisone Take 4 tabs daily for 7 days, then go down by 1 tab every 7 days 10 mg PO DIRECTED 70 tabs 0RF azathioprine Take 1 tab daily for 7 days, then Take 2 tabs daily for 7 days, then Take 3 tabs daily for 7 days, then Take 4 tabs daily 50 mg PO DIRECTED 78 tabs 0RF Discontinued benzonatate Discontinued Reason: Doctor's Order 100 mg PO TID PRN 20 caps 0RF Cough fluconazole Discontinued Reason: Doctor's Order 100 mg PO DAILY 12 days 12 tabs 0RF prednisone Discontinued Reason: Doctor's Order 50 mg PO DAILY 30 tabs 2RF amoxicillin-pot clavulanate 875-125 mg Discontinued Reason: Doctor's Order 1 tab PO BID 10 days 20 tabs 0RF Coding Level of Care Code Est Pt Level 4 (65963) Complex EM visit Add On G2211 Diagnoses ILD (interstitial lung disease) J84.9 Supplemental oxygen dependent Z99.81 Pneumomediastinum J98.2
== END 2024-06-20 11:28 | disposition home or self-care (01) ==
PROVIDERS: PCP Internal Medicine; Visit Provider Internal Medicine Pulmonary Disease
DX: J98.2 Interstitial emphysema (principal); Z99.81 Dependence on supplemental oxygen
CPT/HCPCS: 99214; G2211

== ENCOUNTER → 2024-06-20 10:40 | Outpatient (BNVA) | payer OTHER, SELFPAY | PROVIDERS: PCP Internal Medicine; Visit Provider Internal Medicine Pulmonary Disease | DX: J98.2 Interstitial emphysema (principal); Z99.81 Dependence on supplemental oxygen | CPT/HCPCS: 99212 ==

== ENCOUNTER 2024-07-03 11:07 | Outpatient (AMB) | payer OTHER, SELFPAY ==
--- NOTE | 2024-07-03 11:14 | A.OFFVIS_ITS ---
Vital Signs 07/03/24 11:19 Height 5 ft 1 in Weight 126 lb 15.78 oz BMI 24.0 BP 115/78 Blood Pressure Location Lt brachial Position Sitting Pulse 135 H Pulse Source Pulse Oximeter Pulse Oximetry (%) 95 Oxygen Delivery Method Nasal Cannula Intake Visit Reasons: ILD Intake Note: Patient presents for ILD. Senior Applications Architect Required: Yes Senior Applications Architect Language: Train Operations Manager Services: Senior Applications Architect Present Senior Applications Architect Name: Neha [id number] Information Interpreted: non-clinical & clinical Allergies No Known Allergies [No Known Allergies*] Allergy (Verified 07/03/24 11:18) Medication List - Last Reconciled 07/03/24 by Donal Gonzalez MD acetaminophen (Tylenol Extra Strength) 500 mg PO Q6H PRN azathioprine 50 mg PO DIRECTED compressor, for nebulizer As directed ferrous sulfate 325 mg PO DAILY 90 days levalbuterol HCl 1.25 mg (3 mL) inhalation Q4H PRN lidocaine 5% (Lidoderm) 1 patch topical DAILY PRN MDD remove after 12 hours qikarcrby-sqieyjqepiznod-wfpf 3-2.5 % (7 gram) 1 appl UT BID PRN metronidazole 0.75% 1 appl topical BEDTIME nebulizers As directed nystatin 400,000 units (4 mL) buccal QID 5 days omeprazole 10 mg PO DAILY@0630 Oxygen Home Use As directed prednisone 10 mg PO DIRECTED trazodone 50 mg PO BEDTIME PRN HPI Comments Details: Patient presents for follow-up after completion of her diagnostic workup. She was recently started on azathioprine by Pulmonary. Prednisone is being tapered down. She has no new complaints Initial history: This is a 48-year-old female with history of IgA gammopathy, Crohn's disease in ILD who presents for follow-up. 2021 patient was found to have interstitial lung disease and further workup was ordered, apparently patient was lost to follow-up, she presented to the hospital last month with acute on chronic hypoxemic respiratory failure, she needed oxygen supplementation and steroids, repeat CT chest showed worsening ILD. Labs showed a positive JOE. She is referred to Rheumatology for evaluation of an underlying autoimmune rheumatic disease. Patient states that she has lost 50-60 lb since the beginning of this year mostly due to reduced appetite. She also states that she has had some leg and hip weakness, difficulty climbing stairs, no other muscle weakness, denies any swelling in her joints. She denies any new rashes other than the known rosacea of her face. She denies any history of DVT/PE. Patient's mother states that she has rheumatoid arthritis. Patient had 3 pregnancies in total, 3 children, no abortions or miscarriages , she denies history suggestive of Raynaud's [facility] Medical History Supplemental oxygen dependent Pneumomediastinum ILD (interstitial lung disease) Breast cancer screening by mammogram Overweight (BMI 25.0-29.9) Abnormal CT scan, chest Hemorrhoids with complication Colon cancer screening Generalized abdominal pain Visual impairment Duodenal ulcer GERD (gastroesophageal reflux disease) Obesity (BMI 30-39.9) Menometrorrhagia Seizure in childhood Sclerosing mesenteritis GERD without esophagitis Surgical History History of esophagogastroduodenoscopy (EGD) Hx of colonoscopy Hx of cholecystectomy (~2005) Hx of hysterectomy Hx of section Family History Father No problems noted. Mother No problems noted. Daughter No problems noted. Son No problems noted. Brother Substance abuse Social History Household Members: Family Housing: House Do you presently have visiting nurse or other home services: No Alcohol intake: never Patient Tobacco Use Status: Never used Tobacco e-Cigarette/Vaping Use: Never Used Second Hand Smoke Exposure: No service: No Current occupational status: employed and unemployed Current occupation: [employer] Cognitive needs: No Hearing needs: No Vision needs: No Female Reproductive History Menstrual Total pregnancies: 3 Full term: 3 Review of Systems Const Reports weakness and Reports weight loss Card Reports dyspnea and Reports dyspnea on exertion Resp Reports cough, Reports dyspnea and Reports dyspnea on exertion GI Reports no additional complaints Musc Denies arthralgias, Denies joint swelling and Reports muscle weakness Skin/Breast Denies rash Neuro Reports weakness Physical Exam Vital Signs: Last Vital Signs Pulse 135 H 07/03/24 11:19 BP 115/78 07/03/24 11:19 Pulse Ox 95 07/03/24 11:19 Oxygen Delivery Method Nasal Cannula 07/03/24 11:19 BMI result Body Mass Index 24.0 Const General: cooperative, healthy appearing and comfortable Nutritional Appearance: average body habitus Orientation/consciousness: patient oriented x3 Limitations: no limitations HEENT Head: Yes normocephalic and Yes atraumatic Mouth: oropharynx normal and moist mucous membranes Resp Effort & Inspection: normal respiratory effort and able to speak in complete sentences Cardio Rate: regular rate and tachycardic Rhythm: regular rhythm Skin Other: Erythematous rash on her face, some purplish discoloration of her eyelids Mild purplish discoloration of her fingertips Neuro General: patient oriented x3 Extrem Other: Mild purplish discoloration of her fingertips but fingers are warm and well perfused No active synovitis 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 She has history of IgA gammopathy and Crohn's disease. Patient was found to have interstitial lung disease back in 2021, apparently was lost to follow-up, she presented 2 months ago to the hospital with hypoxemic respiratory failure requiring oxygen supplementation. She was treated with steroids and discharged. Unfortunately she is now oxygen dependent. Upon evaluation I do not see any clear-cut signs suggestive of an underlying autoimmune rheumatic disease. Comprehensive serology is negative. At this time I do not see any evidence of an underlying autoimmune rheumatic disease. Patient was recently started on azathioprine by Pulmonary and prednisone is being tapered down. Continue to follow-up with Pulmonary. At this time patient can follow-up with Rheumatology as needed if there are any new signs of an underlying autoimmune rheumatic disease on exam Plan I spent 16 minutes reviewing patient's chart, evaluating patient, counseling patient and documenting in the chart Coding Level of Care Code Est Pt Level 3 (40196) Diagnoses JOE positive R76.8
[2024-07-03 11:19] VITALS: BP 115/78; PULSE 135; O2SAT 95; BMI 24.0
== END 2024-07-03 11:34 | disposition home or self-care (01) ==
PROVIDERS: PCP Internal Medicine; Visit Provider Student in an Organized Health Care Education/Training Program
DX: R76.8 Other specified abnormal immunological findings in serum (principal)
CPT/HCPCS: 99213

== ENCOUNTER → 2024-07-03 11:07 | Outpatient (BNVA) | payer OTHER, SELFPAY | PROVIDERS: PCP Internal Medicine; Visit Provider Student in an Organized Health Care Education/Training Program | DX: R76.8 Other specified abnormal immunological findings in serum (principal) | CPT/HCPCS: 99212 ==

== ENCOUNTER 2024-07-14 14:25 | Outpatient (AMB) | payer OTHER, SELFPAY ==
[2024-07-14 14:27] VITALS: BP 108/62; PULSE 139; O2SAT 86; BMI 24.2
--- NOTE | 2024-07-14 14:27 | A.OFFVIS_ITS ---
Vital Signs 07/14/24 14:27 Height 5 ft 1 in Weight 127 lb 13.89 oz BMI 24.2 BP 108/62 Blood Pressure Location Rt brachial Position Sitting Pulse 139 H Pulse Source Doppler Pulse Oximetry (%) 86 L Oxygen Delivery Method Nasal Cannula Oxygen Flow Rate 5 Intake Visit Reasons: Dyspnea Allergies No Known Allergies [No Known Allergies*] Allergy (Verified 07/14/24 15:18) HPI HPI Dyspnea: Details: Patient presented significant hypoxic and tachycardic with worsening respiratory status and directed to emergency room for admission for high-dose IV glucocorticoid treatment. [facility] Medical History Supplemental oxygen dependent Pneumomediastinum ILD (interstitial lung disease) Breast cancer screening by mammogram Overweight (BMI 25.0-29.9) Abnormal CT scan, chest Hemorrhoids with complication Colon cancer screening Generalized abdominal pain Visual impairment Duodenal ulcer GERD (gastroesophageal reflux disease) Obesity (BMI 30-39.9) Menometrorrhagia Seizure in childhood Sclerosing mesenteritis GERD without esophagitis Surgical History History of esophagogastroduodenoscopy (EGD) Hx of colonoscopy Hx of cholecystectomy (~2005) Hx of hysterectomy Hx of section Family History Father No problems noted. Mother No problems noted. Daughter No problems noted. Son No problems noted. Brother Substance abuse Social History Household Members: Family Housing: House Do you presently have visiting nurse or other home services: No Alcohol intake: never Patient Tobacco Use Status: Never used Tobacco e-Cigarette/Vaping Use: Never Used Second Hand Smoke Exposure: No Advance Directives: No Advance Directives Information Provided: Yes service: No Current occupational status: employed and unemployed Current occupation: [employer] Cognitive needs: No Hearing needs: No Vision needs: No Physical Exam Vital Signs: Last Vital Signs Pulse 139 H 07/14/24 14:27 BP 108/62 07/14/24 14:27 Pulse Ox 86 L 07/14/24 14:27 Oxygen Delivery Method Nasal Cannula 07/14/24 14:27 Oxygen Flow Rate 5 07/14/24 14:27 BMI result Body Mass Index 24.2 Assessment & Plan Assessment & Plan (1) ILD (interstitial lung disease): Code(s): J84.9 - Interstitial pulmonary disease, unspecified Category: Medical Plan: Patient referred to emergency room for admission for high-dose IV glucocorticoid treatment. Coding Level of Care Code Est Pt Level 2 (03840) Left Without Being Seen Diagnoses ILD (interstitial lung disease) J84.9
== END 2024-07-14 15:06 | disposition left against medical advice (07) ==
PROVIDERS: PCP Internal Medicine; Visit Provider Internal Medicine Pulmonary Disease
DX: J84.9 Interstitial pulmonary disease, unspecified (principal)
CPT/HCPCS: 99212

== ENCOUNTER → 2024-07-14 14:25 | Outpatient (BNVA) | payer OTHER, SELFPAY | PROVIDERS: PCP Internal Medicine; Visit Provider Internal Medicine Pulmonary Disease | DX: J84.9 Interstitial pulmonary disease, unspecified (principal) | CPT/HCPCS: 99212 ==

== ENCOUNTER 2024-07-14 15:11 | Inpatient (IN) | payer OTHER, SELFPAY ==
--- NOTE | ~2024-07-14 | XR_ITS ---
EXAMINATION: XR CHEST CLINICAL INFORMATION: Short of breath COMPARISON: 06/02/2024. CT chest 06/13/2024. TECHNIQUE: Frontal view of the chest was obtained. FINDINGS: Cardiac, hilar, and mediastinal contours are normal and stable. There are low lung volumes, with diffuse interstitial opacities throughout both lungs with basilar predominance, consistent with interstitial lung disease. Mild peribronchial thickening is evident. Within the confines of underlying disease, no definite acute superimposed component. No pneumothorax or effusion. Right upper quadrant surgical clips noted. Soft tissues otherwise normal. No suspicious bony abnormalities. XR/XR chest 1V IMPRESSION: 1. Low lung volumes with stable diffuse interstitial changes consistent with chronic interstitial lung disease. No definite superimposed abnormality although subtle acute disease could easily be obscured by the degree of underlying chronic parenchymal lung disease. Electronically signed by: Octavio Durán MD 07/14/2024 04:47 PM [facility]
--- NOTE | ~2024-07-14 | CT_ITS ---
CLINICAL HISTORY: sob CT angiography chest with contrast. 3D Postprocessing. Comparison: None Findings: There is no cardiomegaly or heart strain by CT. There is no evidence of pulmonary embolism. There is nearly confluence mediastinal and hilar adenopathy. There is diffuse abnormality throughout both lungs with prominent ground-glass density, interlobular septal thickening and regions of bronchiectasis. Reference coronal image 27/59, series 8 and axial images 19 through 20, within the right upper lobe there are 3 subcentimeter rounded nodules/lesions, 2 of which are centrally cavitary. There is a lobular pleural-based nodule within the left upper lobe on axial 14 measuring up to 9 mm. No effusion. No pneumothorax. No suspicious bone lesion. The visualized upper abdomen demonstrates the suggestion of prominence of the pancreatic head, nonspecific. This is incompletely evaluated. Impression: There is no pulmonary embolism or heart strain by CT. There is diffuse, prominent abnormality throughout both lungs with ground-glass density, interlobular septal thickening, bronchiectasis and multiple nodules some of which are cavitary. There is also confluence mediastinal adenopathy. The cavitary lesions may reflect septic emboli in the right clinical setting. There are no comparison studies. The diffuse ground-glass density with septal thickening may reflect diffuse edema or viral infectious process such as COVID. The confluent adenopathy within the mediastinum is atypical for this and correlation with any known underlying lymphoproliferative disorder is recommended. This document has been electronically signed by: Ap Santana MD on 07/14/2024 17:52:04
[2024-07-14 15:17] VITALS: BP 108/66; PULSE 124; RESP 22; TEMP 36.9; O2SAT 98; BMI 23.6
--- NOTE | 2024-07-14 15:19 | ED.GENADULT ---
HPI - General Adult General Chief complaint: Dyspnea Stated complaint: interstitial lung disease sent by Ramona Time Seen by Provider: 07/14/24 16:11 Source: patient Mode of arrival: ambulatory Limitations: no limitations History of Present Illness ED Provider: HPI narrative: Patient home with history of oxygen-dependent 4-5 L interstitial lung disease history of COVID on high doses of steroids sent by pulmonology for increased shortness of breath and tachypnea for last 1 week patient isn't tapering dose of prednisone for last 3 weeks today she took 10 mg of prednisone been coughing up mucopurulent phlegm no fever no chills Related Data Home Medications ?Medication ?Instructions ?Recorded ?Confirmed djljfveit-xucdacianaloxr-yron vera 1 appl ND BID PRN Pain 04/07/22 07/14/24 3 %-2.5 % (7 gram) rectal kit metronidazole 0.75 % topical cream 1 appl topical BEDTIME PRN redness 05/09/24 07/14/24 omeprazole 10 mg capsule,delayed 10 mg PO DAILY@0630 05/09/24 07/14/24 release azathioprine 50 mg tablet 200 mg PO DAILY 07/14/24 07/14/24 nystatin 100,000 unit/mL oral 400,000 unit buccal QID PRN Rash 07/14/24 07/14/24 suspension Previous Rx's ?Medication ?Instructions ?Recorded trazodone 50 mg tablet 50 mg PO BEDTIME PRN sleep #90 tabs 12/31/22 acetaminophen 500 mg tablet 500 mg PO Q6H PRN fever or pain 03/16/23 (Tylenol Extra Strength) #14 tabs lidocaine 5 % topical patch 1 patch topical DAILY PRN pain #30 03/16/23 (Lidoderm) ea ferrous sulfate 325 mg (65 mg 325 mg PO DAILY 90 days #90 tabs 01/22/24 iron) tablet Oxygen Home Use #1 ea 03/08/24 levalbuterol HCl 1.25 mg/3 mL 1.25 mg (3 mL) inhalation Q4H PRN 05/12/24 solution for nebulization Shortness Of Breath/Wheezing #150 mL nebulizers #1 ea 05/12/24 compressor, for nebulizer #1 ea 05/15/24 prednisone 10 mg tablet 10 mg PO DIRECTED #70 tabs 06/20/24 Allergies Allergy/AdvReac Type Severity Reaction Status Date / Time No Known Allergies Allergy Verified 07/14/24 15:18 [No Known Allergies*] Review of Systems Review of Systems: Yes all other systems are reviewed and are negative [facility] Past Medical History Medical History Supplemental oxygen dependent Pneumomediastinum ILD (interstitial lung disease) Breast cancer screening by mammogram Overweight (BMI 25.0-29.9) Abnormal CT scan, chest Hemorrhoids with complication Colon cancer screening Generalized abdominal pain Visual impairment Duodenal ulcer GERD (gastroesophageal reflux disease) Obesity (BMI 30-39.9) Menometrorrhagia Seizure in childhood Sclerosing mesenteritis GERD without esophagitis Surgical History History of esophagogastroduodenoscopy (EGD) Hx of colonoscopy Hx of cholecystectomy (~2005) Hx of hysterectomy Hx of section Family History Family History Father No problems noted. Mother No problems noted. Daughter No problems noted. Son No problems noted. Brother Substance abuse Social History Social History Household Members: Family Housing: House Do you presently have visiting nurse or other home services: No Alcohol intake: never Patient Tobacco Use Status: Never used Tobacco Smoked in Last 30 Days: No e-Cigarette/Vaping Use: Never Used Second Hand Smoke Exposure: No Use of substances other than those prescribed or required for medical reasons: No Advance Directives: No Advance Directives Information Provided: Yes Nutrition Risks: No Nutritional Risk Patient : No service: No Current occupational status: employed and unemployed Current occupation: [employer] Cognitive needs: No Hearing needs: No Vision needs: No Physical Exam ED Vital Signs: Vital Signs - 24 hr 07/14/24 15:17 07/14/24 16:36 Temperature 98.4 F Pulse Rate 124 H 109 H Respiratory Rate 22 H 18 Blood Pressure 108/66 107/75 Pulse Oximetry 98 100 Oxygen Delivery Method Nasal Cannula Nasal Cannula Oxygen Flow Rate 5 BMI result Body Mass Index 23.6 Appearance: Alert. Oriented X3. Moderate respiratory distress Eyes: No pallor or icterus ENT: Pharynx normal. Oral Mucosa moist Neck: Normal inspection. Neck supple. CVS: Normal heart rate and rhythm. Pulses normal. Respiratory: No respiratory distress. Equal air entry bilateral, bilateral prolonged expiration bilateral fine crackles both inspiratory and expiratory Abdomen: Soft and nontender. Bowel sounds are present, no mass palpable, no CVA tenderness Skin: Skin warm and dry. Normal skin color. Normal skin turgor. Extremities: No lower extremity edema. No calf tenderness clubbing++ Neuro: Oriented X 3. No motor deficit. No sensory deficit.No cerebellar signs , cranial nerves II-XII intact Course Course Course Narrative: RME, this is a rapid medical exam performed by Chucky Tariq please refer to primary provider for complete H&P- 48-year-old female past medical history significant for interstitial lung disease on 5-6 L via nasal cannula followed by Dr. Greene presents for evaluation of shortness of breath. The patient has had worsening symptoms for about a month and a half. Dr. Greene has been trying to manage the patient as an outpatient and she has been on p.o. steroids and not improving. He saw the patient in his office today and recommended she come directly to the ER for admission due to dyspnea. He would like a CT angiography if the patient's renal function with tolerated. The patient should get Solu-Medrol 250 mg IV x3 days. Medications Administered Generic Name Dose Route Start Last Admin Trade Name Freq PRN Reason Stop Dose Admin Albuterol/Ipratropium 3 ml 07/14/24 20:00 07/14/24 19:20 Albuterol/Iprat 2.5/0.5mg 3 Ml Ampul.Neb INHALE 3 ml RQID NIKOLAI Administration Enoxaparin Sodium 40 mg 07/14/24 18:00 07/14/24 18:22 Enoxaparin Sodium 40 Mg/0.4 Ml Syringe SUBCUT 40 mg Q24H NIKOLAI Administration Piperacillin Sod/Tazobactam 50 mls @ 100 mls/hr 07/14/24 19:00 07/14/24 20:41 Sod 3.375 gm/ Sodium Chloride IV Infused Q6H NIKOLAI Infusion Methylprednisolone Sodium Succinate 250 mg 07/14/24 22:00 07/14/24 22:55 Methylprednisolone Sod Succ 125 Mg/2 Ml Vial IVPUSH 250 mg Q6H NIKOLAI Administration Discontinued Medications Generic Name Dose Route Start Last Admin Trade Name Freq PRN Reason Stop Dose Admin Vancomycin HCl 1,500 mg/ 500 mls @ 333.333 mls/hr 07/14/24 18:45 07/14/24 22:25 Sodium Chloride IV 07/14/24 20:14 Infused ONCE ONE Infusion Iohexol 100 ml 07/14/24 17:07 07/14/24 17:09 Iohexol 350 Mg/Ml 100 Ml Infus..Btl IV 07/14/24 17:08 65 ml ONCE ONE Administration Methylprednisolone Sodium Succinate 125 mg 07/14/24 16:16 07/14/24 16:32 Methylprednisolone Sod Succ 125 Mg/2 Ml Vial IVPUSH 07/14/24 16:17 125 mg ONCE ONE Administration Methylprednisolone Sodium Succinate 125 mg 07/14/24 17:01 07/14/24 18:16 Methylprednisolone Sod Succ 125 Mg/2 Ml Vial IVPUSH 07/14/24 17:02 125 mg ONCE ONE Administration Medical Decision Making Medical Decision Making [facility] Narrative: Patient with interstitial lung disease with multiple nodular findings likely ILD been normal WBC count but CT scan questioning the cavitary lesions in the nodule case discussed Dr. Villalta advised empirical antibiotics patient clinically not septic will start patient on vancomycin and Zosyn blood culture and lactic acid drawn Differential Diagnosis Differential Diagnoses: The differential diagnosis associated with the presentation includes Pulmonary embolism/ILD/chronic lung disease Admission/Observation Consideration of admission/observation: Escalation of care including admission/observation considered Consult Healthcare Provider Management of the patient was discussed with: Hospitalist Lab Data [facility] Lab Attestation statement: I reviewed the patient's lab results. 07/14/24 15:47 07/14/24 15:47 Labs: Lab Results 07/14/24 Range/Units 15:47 WBC 6.3 (4.8-10.8) X10*3/uL RBC 4.25 (4.20-5.50) X10*6/uL Hgb 12.0 (12.0-16.0) g/dl Hct 37.3 (37.0-47.0) % MCV 87.8 (80.0-98.0) fL MCH 28.2 (27.0-33.0) pg MCHC 32.2 (31.0-35.0) g/dl RDW 13.6 (11.0-16.0) % Plt Count 256 (160-400) X10*3/uL MPV 9.6 (9.4-12.3) fL Immature Gran % (Auto) 0.8 H (0.0-0.4) % Neut % (Auto) 74.3 H (45-73) % Lymph % (Auto) 17.5 L (20-40) % Mcclain % (Auto) 4.5 (2-11) % Eos % (Auto) 1.9 (0-4) % Baso % (Auto) 1.0 (0-2) % Lymph # (Auto) 1.1 L (1.2-4.9) X10*3/uL Mcclain # (Auto) 0.3 (0.1-1.2) X10*3/uL Eos # (Auto) 0.1 (0.0-0.4) X10*3/uL Baso # (Auto) 0.1 (0.0-0.2) X10*3/uL Abs Immat Gran (auto) 0.05 H (0.00-0.03) X10*3/uL Absolute Neuts (auto) 4.7 (2.0-8.3) x10*3/uL Absolute Nucleated RBC 0.000 (0.0-0.012) X10*3/uL Nucleated RBC % (auto) 0.0 (0.0-0.2) /100WBC Sodium 138 (135-145) mmol/L Potassium 4.1 (3.3-5.1) mmol/L Chloride 105 (96-108) mmol/L Carbon Dioxide 25 (22-29) mmol/L Anion Gap 12 (12-20) BUN 15 (9-16) mg/dL Creatinine 0.61 (0.5-1.4) mg/dL Estim Creat Clear Calc 86.0 Estimated GFR > 60 Random Glucose 112 (60-115) mg/dL Calcium 9.2 (8.4-10.2) mg/dL Total Bilirubin 0.5 (0.0-1.0) mg/dL AST 37 H (5-31) U/L ALT 19 (0-31) U/L Alkaline Phosphatase 78 (39-117) U/L Total Protein 8.9 H (6.5-8.0) g/dL Albumin 3.0 L (3.5-5.0) g/dL Influenza Type A (PCR) NEGATIVE (Negative) Influenza Type B (PCR) NEGATIVE (Negative) RSV RNA Qual (PCR) NEGATIVE (Negative) SARS-CoV-2 RNA (RT-PCR) NEGATIVE (Negative) Radiology Impression Discussion of test interpretation with radiology: I have reviewed the radiologist's reading. Radiologist Impression: CLINICAL HISTORY: sob CT angiography chest with contrast. 3D Postprocessing. Comparison: None Findings: There is no cardiomegaly or heart strain by CT. There is no evidence of pulmonary embolism. There is nearly confluence mediastinal and hilar adenopathy. There is diffuse abnormality throughout both lungs with prominent ground-glass density, interlobular septal thickening and regions of bronchiectasis. Reference coronal image 27/59, series 8 and axial images 19 through 20, within the right upper lobe there are 3 subcentimeter rounded nodules/lesions, 2 of which are centrally cavitary. There is a lobular pleural-based nodule within the left upper lobe on axial 14 measuring up to 9 mm. No effusion. No pneumothorax. No suspicious bone lesion. The visualized upper abdomen demonstrates the suggestion of prominence of the pancreatic head, nonspecific. This is incompletely evaluated. Impression: There is no pulmonary embolism or heart strain by CT. There is diffuse, prominent abnormality throughout both lungs with ground-glass density, interlobular septal thickening, bronchiectasis and multiple nodules some of which are cavitary. There is also confluence mediastinal adenopathy. The cavitary lesions may reflect septic emboli in the right clinical setting. There are no comparison studies. The diffuse ground-glass density with septal thickening may reflect diffuse edema or viral infectious process such as COVID. The confluent adenopathy within the mediastinum is atypical for this and correlation with any known underlying lymphoproliferative disorder is recommended. This document has been electronically signed by: Ap Santana MD on 07/14/2024 17:52:04 Dictated By: Ap Santana MD Signed By: <Electronically signed by Ap Santana MD in OV> 07/14/241752 DD/ 51 TD/TT: 07/14/241751 Retail Representative: Critical Care Time Critical Care Time Critical Care Time: Yes Total Critical Care Time: 55 Attestation: The patient was critically ill with a high probability of imminent or life threatening deterioration. I spent greater than ?60??minutes of discontinuous time evaluating the patient,delivering critical care at the bedside, discussing and evaluating pertinent data with consultants. Critical care time does not include time spent performing separately billable procedures or teaching. Total time spent performing critical care was 55minutes. Discharge Plan Discharge Clinical Impression: ILD (interstitial lung disease), Pneumonia, Acute on chronic hypoxic respiratory failure Patient Disposition: Admitted As Inpatient
--- NOTE | 2024-07-14 15:20 | ECG_ITS ---
Test Reason : TACHYCARDIA Blood Pressure : */* mmHG Vent. Rate : 117 BPM Atrial Rate : 117 BPM P-R Int : 120 ms QRS Dur : 84 ms QT Int : 306 ms P-R-T Axes : 59 6 17 degrees QTcB Int : 426 ms Sinus tachycardia Otherwise normal ECG When compared with ECG of 09-May-2024 14:18, T wave inversion no longer evident in Lateral leads Referred By: Fadi Tariq Electronically Signed By: Herman Finley
[2024-07-14 15:52] LABS: MANUAL DIFF FLAG NO
[2024-07-14 15:55] LABS: Basophils Absolute Auto 0.1 X10*3/uL (0.0-0.2); Eosinophils Absolute Auto 0.1 X10*3/uL (0.0-0.4); Eosinophils Percent Auto 1.9 % (0-4); Hematocrit 37.3 % (37.0-47.0); Imm Gran Abs Auto 0.05 X10*3/uL (0.00-0.03); Imm Gran Pct Auto 0.8 % (0.0-0.4); Lymphocytes Absolute Auto 1.1 X10*3/uL (1.2-4.9); Lymphocytes Percent Auto 17.5 % (20-40); Mean Corpuscular HGB Conc 32.2 g/dl (31.0-35.0); Mean Corpuscular Hemoglobin 28.2 pg (27.0-33.0); Mean Corpuscular Volume 87.8 fL (80.0-98.0); Mean Platelet Volume 9.6 fL (9.4-12.3); Monocytes Absolute Auto 0.3 X10*3/uL (0.1-1.2); Monocytes Percent Auto 4.5 % (2-11); Neutrophils Absolute Auto 4.7 x10*3/uL (2.0-8.3); Neutrophils Percent Auto 74.3 % (45-73); Platelet Count 256 X10*3/uL (160-400); Red Blood Count 4.25 X10*6/uL (4.20-5.50); Red Cell Distribution Width 13.6 % (11.0-16.0); White Blood Count 6.3 X10*3/uL (4.8-10.8)
[2024-07-14 16:21] LABS: Alanine Aminotransferase 19 U/L (0-31); Alkaline Phosphatase 78 U/L (39-117); Anion Gap 12 (12-20); Aspartate Amino Transferase 37 U/L (5-31); Bilirubin Total 0.5 mg/dL (0.0-1.0); Blood Urea Nitrogen 15 mg/dL (9-16); Calcium 9.2 mg/dL (8.4-10.2); Carbon Dioxide 25 mmol/L (22-29); Chloride 105 mmol/L (96-108); Estimated Glomerular Filt Rate > 60; Glucose Random 112 mg/dL (60-115); Potassium 4.1 mmol/L (3.3-5.1); Sodium 138 mmol/L (135-145); Total Protein 8.9 g/dL (6.5-8.0)
[2024-07-14 16:32] LABS: Influenza A PCR NEGATIVE (Negative); Influenza B PCR NEGATIVE (Negative); Resp Syncy Virus RNA Qual PCR NEGATIVE (Negative); SARS COV2 PCR INHOUSE NEGATIVE (Negative)
[2024-07-14] MEDS: methylPREDNISolone Sod Succ 125 MG/2 ML VIAL IVPUSH ×2 (16:32→18:16)
[2024-07-14 16:36] VITALS: BP 107/75; PULSE 109; RESP 18; O2SAT 100
[2024-07-14] MEDS: iohexoL 350 MG/ML 100 ML INFUS..BTL IV (17:09)
--- NOTE | 2024-07-14 17:32 | P.HPHOSP_ITS ---
History of Present Illness Date of Service: 07/14/24 Chief Complaint: Shortness of breaths/cough/hypoxia 48-year-old female with past medical history significant for Crohn's disease, IgA gammopathy, nonsmoker, history of COVID 19 in 2019, history of esophageal candidiasis, status post fluconazole therapy, interstitial lung disease chronically on 2 L of home oxygen noticed to have worsening shortness of breath times 3-4 weeks, being followed by manager mobility Dr. Greene and started on azathioprine, and was given tapering dose of prednisone currently on 10 mg daily her oxygen was also increased to 4-5 L per despite high-dose prednisone and oxygen patient continued to have significant hypoxia, shortness of breath and tachycardia therefore she was referred to emergency room by her manager mobility, patient denies fever, no chills, no sick contacts, no recent history of travel she complains of cough with mucopurulent sputum she is currently on 10 mg of prednisone at home, complaining of shortness of breath with activity and at rest, chest x-ray showed low lung volumes with stable diffuse interstitial changes consistent with chronic interstitial lung disease no superimposed abnormality noted, CTA chest obtained report pending patient will be admitted to [facility] for high-dose steroids and close respiratory monitoring. Review of Systems 2 Review of Systems: General no headache no dizziness no fever chills. CVS no chest pain, no palpitation. Respiratory shortness of breath with mucopurulent sputum Gastrointestinal no nausea no vomiting, no abdominal pain no urgency, no frequency All other system reviewed and are negative. [facility] Medical History Supplemental oxygen dependent Pneumomediastinum ILD (interstitial lung disease) Breast cancer screening by mammogram Overweight (BMI 25.0-29.9) Abnormal CT scan, chest Hemorrhoids with complication Colon cancer screening Generalized abdominal pain Visual impairment Duodenal ulcer GERD (gastroesophageal reflux disease) Obesity (BMI 30-39.9) Menometrorrhagia Seizure in childhood Sclerosing mesenteritis GERD without esophagitis Family History Father No problems noted. Mother No problems noted. Daughter No problems noted. Son No problems noted. Brother Substance abuse Surgical History History of esophagogastroduodenoscopy (EGD) Hx of colonoscopy Hx of cholecystectomy (~2005) Hx of hysterectomy Hx of section Social History Household Members: Family Housing: House Do you presently have visiting nurse or other home services: No Alcohol intake: never Patient Tobacco Use Status: Never used Tobacco Smoked in Last 30 Days: No e-Cigarette/Vaping Use: Never Used Second Hand Smoke Exposure: No Use of substances other than those prescribed or required for medical reasons: No Advance Directives: No Advance Directives Information Provided: Yes Patient : No service: No Current occupational status: employed and unemployed Current occupation: [employer] Cognitive needs: No Hearing needs: No Vision needs: No Meds Allergies Allergy/AdvReac Type Severity Reaction Status Date / Time No Known Allergies Allergy Verified 07/14/24 15:18 [No Known Allergies*] Home Medications ?Medication ?Instructions ?Recorded ?Confirmed ?Last Taken ?Type zkfysibeq-ocsosaxucpiqey-okbu vera 1 appl TN BID PRN Pain 04/07/22 05/22/24 Unknown History 3 %-2.5 % (7 gram) rectal kit metronidazole 0.75 % topical cream 1 appl topical BEDTIME redness 05/09/24 05/22/24 05/07/24 History omeprazole 10 mg capsule,delayed 10 mg PO DAILY@0630 05/09/24 05/22/24 05/07/24 History release Physical Exam 2 Vital Signs and Narrative: Vital Signs: Last Vital Signs Temp 98.4 F 07/14/24 15:17 Pulse 109 H 07/14/24 16:36 Resp 18 07/14/24 16:36 BP 107/75 07/14/24 16:36 Pulse Ox 100 07/14/24 16:36 O2 Del Method Nasal Cannula 07/14/24 16:36 O2 Flow Rate 5 07/14/24 16:36 Oxygen Flow Rate 6 07/14/24 15:17 BMI result Body Mass Index 23.6 Const: Other: General awake alert x3, in no acute distress. Moist mucous membrane Neck no JVD. CVS regular rate rhythm, Respiratory lungs bibasilar dry crackles, no wheeze, no rhonchi. Gastrointestinal abdomen soft, non tender, bowel sounds audible, no guarding , no rigidity. Extremities no edema. Neuro non focal Skin no rash Psych appropriate affect Results Labs 07/14/24 15:47 07/14/24 15:47 Labs: Laboratory Results - last 24 hr 07/14/24 15:47 MCV 87.8 MCH 28.2 MCHC 32.2 RDW 13.6 Plt Count 256 MPV 9.6 Immature Gran % (Auto) 0.8 H Neut % (Auto) 74.3 H Lymph % (Auto) 17.5 L [place] % (Auto) 4.5 Eos % (Auto) 1.9 Baso % (Auto) 1.0 Lymph # (Auto) 1.1 L [place] # (Auto) 0.3 Eos # (Auto) 0.1 Baso # (Auto) 0.1 Abs Immat Gran (auto) 0.05 H Absolute Neuts (auto) 4.7 Absolute Nucleated RBC 0.000 Nucleated RBC % (auto) 0.0 Anion Gap 12 Estim Creat Clear Calc 86.0 Estimated GFR > 60 Random Glucose 112 Calcium 9.2 Total Bilirubin 0.5 AST 37 H ALT 19 Alkaline Phosphatase 78 Total Protein 8.9 H Albumin 3.0 L Influenza Type A (PCR) NEGATIVE Influenza Type B (PCR) NEGATIVE RSV RNA Qual (PCR) NEGATIVE SARS-CoV-2 RNA (RT-PCR) NEGATIVE Imaging Radiologist's Impressions: Impressions Chest X-Ray 07/14/24 16:13 IMPRESSION: 1. Low lung volumes with stable diffuse interstitial changes consistent with chronic interstitial lung disease. No definite superimposed abnormality although subtle acute disease could easily be obscured by the degree of underlying chronic parenchymal lung disease. Electronically signed by: Octavio Durán MD 07/14/2024 04:47 PM [facility] [place] Assessment and Plan (1) ILD (interstitial lung disease): Status: Acute (2) Acute on chronic hypoxic respiratory failure: Status: Acute Plan 48-year-old female with past medical history significant for Crohn disease, IgA gammopathy, interstitial lung disease, being admitted due to worsening shortness of breath hypoxia and tachycardia not responding to oral steroids. Acute on chronic hypoxic respiratory failure due to interstitial pulmonary disease CTA chest to rule out PE obtain report pending Normal CBC and electrolytes,no fevers,tachycardic Will treat with IV Solu Medrol 250 mg q.6 hours Continue azathioprine/DuoNeb q.i.d./cough syrup as needed Continue oxygen, wean as tolerated on baseline 2 L of home oxygen recently increased to 4-5 L. Pulmonary consult Crohn disease no acute exacerbation DVT prophylaxis with Lovenox GI prophylaxis with by mouth PPI History of insomnia resume home medication Full code Patient will require 2 overnight hospital stay due to worsening shortness of breath and increased oxygen requirement will require expert consultation and high-dose IV steroids. Quality Stroke Does the patient have a stroke diagnosis?: No VTE Prior VTE?: No VTE Risk Level:: Medical - moderate - high VTE Device Contraindication: Treatment Not Indicated VTE Drug Contraindication: N/A - Med Ordered
[2024-07-14] MEDS: Enoxaparin Sodium 40 MG/0.4 ML SYRINGE SUBCUT (18:22)
--- NOTE | 2024-07-14 18:59 | PHA.MEDREC ---
Addendum entered by Sabi Hernandez, [facility] 07/14/24 19:39: reviewed Patient should be taking Azathioprine 4 tablets daily going forward, patient was under impression they are to increase to 5 tablets but the order does not indicate to do so. Prescriber for the doxycycline is a skip hoist engineer ROSIE, suspect patient may be taking it for acne, rosacea. Original Note: Pharmacy Consult ? Medication Reconciliation Pharmacy has completed the medication reconciliation. Spoke with patient and daughter at bedside who I was able to use to interperate and she confirmed her medications. She seemed a bit confused when I was asking about the antibiotics and stated she was taking the Azathioprine 50mg tabs and the Prednisone 10mg regimens. She stated she finished the Prednisone regimen about 1-2 weeks ago on that and looking in claims it should of been done this coming up Tuesday 07/18. She states she is still taking the Azathioprine 50mg tab and states she is taking 4 tablets until Wednesday then she is suppose to increase to 5 tablets and looking in claims that was filled to be taken 1 tab x 7 days then 2 tabs x 7 days then 3 tabs x 7days then 4 tabs daily and the patient and daughter were confused on that. I called and spoke with patients pharmacy to confirm if the patient had picked up the Doxycycline 20mg regimen since when I asked about that the patients daughter stated that the patient finished that 2 weeks ago and the pharmacy confirmed the patient has not picked that up and that is still sitting in the pharmacy. The patient confirmed she took her medications this morning.
[2024-07-14 19:20] VITALS: PULSE 99; RESP 18; O2SAT 99
[2024-07-14] MEDS: Albuterol/Iprat 2.5/0.5MG 3 ML AMPUL.NEB INHALE (19:20)
--- NOTE | 2024-07-14 19:51 | PC.NURSE ---
pt eating dinner in bed, abx delayed d/t no blood cultures done at this time.
[2024-07-14] MEDS: Piperacillin Sodium/Tazobactam 3.375 GM in 0.9 % Sodium Chloride 50 ML IV (20:07)
[2024-07-14 20:37] LABS: Lactic Acid 3.2 mmol/L (0.5-2.0)
[2024-07-14] MEDS: vancomycin HCL 1,500 MG in 0.9 % Sodium Chloride 500 ML 333.33 MG IV (20:41)
[2024-07-14 20:46] VITALS: BP 108/69; PULSE 113; RESP 20; TEMP 37.1; O2SAT 97
[2024-07-14 22:13] LABS: Reflex Lactate? Lactic Acid Added
[2024-07-14] MEDS: methylPREDNISolone Sod Succ 125 MG/2 ML VIAL 250 MG IVPUSH (22:55)
[2024-07-14 22:58] LABS: ~Lactic Acid-LAB USE ONLY 2.9 mmol/L (0.5-2.0)
--- NOTE | 2024-07-14 23:54 | MHC.EDTECH ---
Assumed care of Pt at 2300.
[2024-07-15] VITALS (9 sets, daily range): BP systolic 99–138; BP diastolic 56–87; PULSE 73–114; RESP 14–20; TEMP 36.1–36.6; O2SAT 91–99
[2024-07-15 00:30] LABS: Reflex Lactate? 2 Y
[2024-07-15 01:10] LABS: ~Lactic Acid-LAB USE ONLY 3.2 mmol/L (0.5-2.0)
[2024-07-15] MEDS: Piperacillin Sodium/Tazobactam 3.375 GM in 0.9 % Sodium Chloride 50 ML IV ×3 (01:15→13:08)
[2024-07-15] MEDS: 0.9 % Sodium Chloride Flush 3 ML SYRINGE IVFLUSH ×4 (01:16→21:23)
[2024-07-15] MEDS: methylPREDNISolone Sod Succ 125 MG/2 ML VIAL 250 MG IVPUSH ×4 (03:53→21:23)
[2024-07-15] MEDS: Omeprazole 20 MG CAPSULE.DR PO (06:01)
[2024-07-15 07:34] LABS: Cancel Lactic Acid Canceled
[2024-07-15] MEDS: Albuterol/Iprat 2.5/0.5MG 3 ML AMPUL.NEB INHALE ×4 (07:53→19:15)
[2024-07-15] MEDS: Ferrous Sulfate 324 MG TABLET.DR PO (09:19)
[2024-07-15] MEDS: azaTHIOprine 50 MG TABLET 200 MG PO (09:19)
[2024-07-15] MEDS: vancomycin HCL 1,000 MG in 0.9 % Sodium Chloride 250 ML 270 MG IV (09:28)
[2024-07-15 10:20] LABS: Creatinine Clr Calc Pharmacy 78.3; Estimated Glomerular Filt Rate > 60
--- NOTE | 2024-07-15 13:06 | PM.CNCAR ---
History of Present Illness History of Present Illness Date of Service: 07/15/24 Requesting physician: Stuart Greene Chief complaint: Acute on chronic hypoxic respiratory failure,tachy Narrative: [age] year female with acute on chronic hypoxic respiratory failure due to interstitial lung disease. She is following closely with pulmonology and has been admitted for IV steroids. She is saying since the IV steroids were started she is feeling better. She gets fatigue and dyspnea with minimal activities. She also feels palpitations and has sinus tachycardia. This has been an issue previously and she feels that her heart is racing at times. Denying any chest discomfort. Blood pressures are borderline. She is on IV steroids currently and overall feeling better. No reported cardiovascular issues in the past. [facility] Past Medical History Medical History Supplemental oxygen dependent Pneumomediastinum ILD (interstitial lung disease) Breast cancer screening by mammogram Overweight (BMI 25.0-29.9) Abnormal CT scan, chest Hemorrhoids with complication Colon cancer screening Generalized abdominal pain Visual impairment Duodenal ulcer GERD (gastroesophageal reflux disease) Obesity (BMI 30-39.9) Menometrorrhagia Seizure in childhood Sclerosing mesenteritis GERD without esophagitis Family History Family History Father No problems noted. Mother No problems noted. Daughter No problems noted. Son No problems noted. Brother Substance abuse Surgical History Surgical History History of esophagogastroduodenoscopy (EGD) Hx of colonoscopy Hx of cholecystectomy (~2005) Hx of hysterectomy Hx of section Social History Social History Household Members: Children Housing: House Do you presently have visiting nurse or other home services: No Alcohol intake: never Patient Tobacco Use Status: Never used Tobacco e-Cigarette/Vaping Use: Never Used Second Hand Smoke Exposure: No service: No Current occupational status: employed and unemployed Current occupation: [employer] Cognitive needs: No Hearing needs: No Vision needs: No Meds Allergies Allergy/AdvReac Type Severity Reaction Status Date / Time No Known Allergies Allergy Verified 07/14/24 15:18 [No Known Allergies*] Active Medications: Current Medications Acetaminophen (Acetaminophen 325 Mg Tablet) 650 mg PO Q6H PRN PRN Reason: Pain, Mild 1-3,fever,headache Albuterol/Ipratropium (Albuterol/Iprat 2.5/0.5mg 3 Ml Ampul.Neb) 3 ml INHALE RQID [facility] Last Admin: 07/15/24 11:36 Dose: 3 ml Azathioprine (Azathioprine 50 Mg Tablet) 200 mg PO DAILY [facility] Last Admin: 07/15/24 09:19 Dose: 200 mg Calcium Carbonate (Calcium Carbonate 750 Mg Tab.Chew) 750 mg PO Q4H PRN PRN Reason: Heartburn Enoxaparin Sodium (Enoxaparin Sodium 40 Mg/0.4 Ml Syringe) 40 mg SUBCUT Q24H [facility] Last Admin: 07/14/24 18:22 Dose: 40 mg Ferrous Sulfate (Ferrous Sulfate 324 Mg Tablet.) 324 mg PO DAILY [facility] Last Admin: 07/15/24 09:19 Dose: 324 mg Guaifenesin/Dextromethorphan (Guaifenesin Dm 200/20/10 Ml 10 Ml Syrup) 10 ml PO Q6H PRN PRN Reason: Cough Piperacillin Sod/Tazobactam (Sod 3.375 gm/ Sodium Chloride) 50 mls @ 100 mls/hr IV Q6H [facility] Last Infusion: 07/15/24 06:47 Dose: Infused Vancomycin HCl 1,000 mg/ (Sodium Chloride) 270 mls @ 270 mls/hr IV Q12H [facility] Last Infusion: 07/15/24 10:41 Dose: Infused Levalbuterol HCl (Levalbuterol Hcl 1.25 Mg/3 Ml Vial.Neb) 1.25 mg INHALE Q4H PRN PRN Reason: Shortness Of Breath/Wheezing Magnesium Hydroxide (Milk Of Magnesia 30 Ml Oral.Susp) 30 ml PO DAILY PRN PRN Reason: Constipation Melatonin (Melatonin 3 Mg Tablet) 6 mg PO BEDTIME PRN PRN Reason: Insomnia Methylprednisolone Sodium Succinate (Methylprednisolone Sod Succ 125 Mg/2 Ml Vial) 250 mg IVPUSH Q6H [facility] Last Admin: 07/15/24 09:19 Dose: 250 mg Omeprazole (Omeprazole 20 Mg Capsule.) 20 mg PO DAILY@0630 [facility] Last Admin: 07/15/24 06:01 Dose: 20 mg Ondansetron HCl (Ondansetron Hcl 4 Mg/2 Ml Vial) 4 mg IVPUSH Q8H PRN PRN Reason: Nausea and Vomiting Pharmacy Consult (Consult Rx Vancomycin Dosing) 1 each MISCELLANE DAILY PRN PRN Reason: Consult order Sodium Chloride (0.9 % Sodium Chloride Flush 3 Ml Syringe) 3 ml IVFLUSH QSHIFT [facility] Last Admin: 07/15/24 09:20 Dose: 3 ml Trazodone HCl (Trazodone Hcl 50 Mg Tablet) 50 mg PO BEDTIME PRN PRN Reason: insomnia Home Medications ?Medication ?Instructions ?Recorded ?Confirmed ?Last Taken ?Type mgzmnahdw-hoecctfxvleawp-nifi vera 1 appl DE BID PRN Pain 04/07/22 07/14/24 Unknown History 3 %-2.5 % (7 gram) rectal kit metronidazole 0.75 % topical cream 1 appl topical BEDTIME PRN redness 05/09/24 07/14/24 05/07/24 History omeprazole 10 mg capsule,delayed 10 mg PO DAILY@0630 05/09/24 07/14/24 07/14/24 History release azathioprine 50 mg tablet 200 mg PO DAILY 07/14/24 07/14/24 Unknown History nystatin 100,000 unit/mL oral 400,000 unit buccal QID PRN Rash 07/14/24 07/14/24 Unknown History suspension Physical Exam Vital Signs: Vital Signs: Last Vital Signs Temp 97.2 F 07/15/24 07:27 Pulse 112 H 07/15/24 11:39 Resp 18 07/15/24 11:39 BP 138/87 07/15/24 07:27 Pulse Ox 99 07/15/24 07:27 O2 Del Method Nasal Cannula 07/15/24 07:27 O2 Flow Rate 4 07/15/24 07:27 Oxygen Flow Rate 6 07/14/24 15:17 BMI result Body Mass Index 23.6 GENERAL APPEARANCE: Emotional and tearful. On supplemental oxygen. NECK: no carotid bruit, no jugular venous distention. SKIN: no suspicious lesions, warm and dry. HEART: no murmurs, regular rate and rhythm. Tachycardic. LUNGS: Bilateral crackles to mid lungs. ABDOMEN: soft, nontender. EXTREMITIES: no edema. PERIPHERAL PULSES: equal. NEUROLOGIC: No gross deficits, AAO X 3 Objective Labs and Meds 07/14/24 15:47 07/15/24 10:02 Lab results: Laboratory Results - last 24 hr 07/14/24 07/14/24 07/14/24 15:47 20:01 22:27 WBC 6.3 RBC 4.25 Hgb 12.0 Hct 37.3 MCV 87.8 MCH 28.2 MCHC 32.2 RDW 13.6 Plt Count 256 MPV 9.6 Immature Gran % (Auto) 0.8 H Neut % (Auto) 74.3 H Lymph % (Auto) 17.5 L [place] % (Auto) 4.5 Eos % (Auto) 1.9 Baso % (Auto) 1.0 Lymph # (Auto) 1.1 L [place] # (Auto) 0.3 Eos # (Auto) 0.1 Baso # (Auto) 0.1 Abs Immat Gran (auto) 0.05 H Absolute Neuts (auto) 4.7 Absolute Nucleated RBC 0.000 Nucleated RBC % (auto) 0.0 Sodium 138 Potassium 4.1 Chloride 105 Carbon Dioxide 25 Anion Gap 12 BUN 15 Creatinine 0.61 Estim Creat Clear Calc 86.0 Estimated GFR > 60 Random Glucose 112 Lactic Acid 3.2 H* Lactic Acid F/U @ 2Hr 2.9 H* Lactic Acid F/U @ 4Hr Calcium 9.2 Total Bilirubin 0.5 AST 37 H ALT 19 Alkaline Phosphatase 78 Total Protein 8.9 H Albumin 3.0 L Influenza Type A (PCR) NEGATIVE Influenza Type B (PCR) NEGATIVE RSV RNA Qual (PCR) NEGATIVE SARS-CoV-2 RNA (RT-PCR) NEGATIVE 07/15/24 07/15/24 00:41 10:02 WBC RBC Hgb Hct MCV MCH MCHC RDW Plt Count MPV Immature Gran % (Auto) Neut % (Auto) Lymph % (Auto) [place] % (Auto) Eos % (Auto) Baso % (Auto) Lymph # (Auto) [place] # (Auto) Eos # (Auto) Baso # (Auto) Abs Immat Gran (auto) Absolute Neuts (auto) Absolute Nucleated RBC Nucleated RBC % (auto) Sodium Potassium Chloride Carbon Dioxide Anion Gap BUN Creatinine 0.67 Estim Creat Clear Calc 78.3 Estimated GFR > 60 Random Glucose Lactic Acid Lactic Acid F/U @ 2Hr Lactic Acid F/U @ 4Hr 3.2 H* Calcium Total Bilirubin AST ALT Alkaline Phosphatase Total Protein Albumin Influenza Type A (PCR) Influenza Type B (PCR) RSV RNA Qual (PCR) SARS-CoV-2 RNA (RT-PCR) Imaging Radiologist's impression: Impressions Chest X-Ray 07/14/24 16:13 IMPRESSION: 1. Low lung volumes with stable diffuse interstitial changes consistent with chronic interstitial lung disease. No definite superimposed abnormality although subtle acute disease could easily be obscured by the degree of underlying chronic parenchymal lung disease. Electronically signed by: Octavio Durán MD 07/14/2024 04:47 PM [facility] Assessment and Plan (1) Acute on chronic hypoxic respiratory failure: Status: Acute (2) Sinus tachycardia: Status: Acute Plan [age] year female with interstitial lung disease who is currently in the hospital for IV steroids. She is feeling better with steroids. She has sinus tachycardia on ECG. She is saying that with minimal activities her heart starts racing and she feels tired. This is not an unusual situation especially with the advanced lung disease. I have currently reassured her. Her blood pressure is low and obviously if she is symptomatic trying beta-monalisa or calcium channel monalisa can be challenging. As she improves we can reassess her. If she has significant palpitations with activity due to sinus tachycardia then ivabradine can be tried. We will do echocardiography on Wednesday to assess biventricular function and PA pressures. Thank you for allowing me to participate in the care of your patient. Please feel free to contact me if you have any questions. Procedures Date of Service Date of Service: 07/15/24
--- NOTE | 2024-07-15 15:15 | HO.PM.IMPN ---
Subjective Subjective Date of Service: 07/15/24 Interval History: Feels better, persistent shortness of breath and tachycardia with movement, denies chest pain, no fevers, no chills, no headache, no acute events overnight. Review of Systems All other system reviewed and are negative Physical Exam Vital Signs: Vital Signs: Last Vital Signs Temp 97.2 F 07/15/24 07:27 Pulse 112 H 07/15/24 11:39 Resp 18 07/15/24 11:39 BP 138/87 07/15/24 07:27 Pulse Ox 99 07/15/24 07:27 O2 Del Method Nasal Cannula 07/15/24 07:27 O2 Flow Rate 4 07/15/24 07:27 Oxygen Flow Rate 6 07/14/24 15:17 BMI result Body Mass Index 23.6 Const: Other: General awake alert x3, in no acute distress. Moist mucous membrane Neck no JVD. CVS regular rate rhythm, Respiratory lungs bibasilar dry crackles, no wheeze, no rhonchi. Gastrointestinal abdomen soft, non tender, bowel sounds audible, no guarding , no rigidity. Extremities no edema. Neuro non focal Skin no rash Psych appropriate affect Objective Data Active Medications Acetaminophen (Acetaminophen 325 Mg Tablet) 650 mg PO Q6H PRN PRN Reason: Pain, Mild 1-3,fever,headache Albuterol/Ipratropium (Albuterol/Iprat 2.5/0.5mg 3 Ml Ampul.Neb) 3 ml INHALE RQID [facility] Last Admin: 07/15/24 11:36 Dose: 3 ml Documented By: CHANDNI Azathioprine (Azathioprine 50 Mg Tablet) 200 mg PO DAILY [facility] Last Admin: 07/15/24 09:19 Dose: 200 mg Documented By: CONNIE Calcium Carbonate (Calcium Carbonate 750 Mg Tab.Chew) 750 mg PO Q4H PRN PRN Reason: Heartburn Enoxaparin Sodium (Enoxaparin Sodium 40 Mg/0.4 Ml Syringe) 40 mg SUBCUT Q24H [facility] Last Admin: 07/14/24 18:22 Dose: 40 mg Documented By: LISE Ferrous Sulfate (Ferrous Sulfate 324 Mg Tablet.Dr) 324 mg PO DAILY [facility] Last Admin: 07/15/24 09:19 Dose: 324 mg Documented By: CONNIE Guaifenesin/Dextromethorphan (Guaifenesin Dm 200/20/10 Ml 10 Ml Syrup) 10 ml PO Q6H PRN PRN Reason: Cough Piperacillin Sod/Tazobactam (Sod 3.375 gm/ Sodium Chloride) 50 mls @ 100 mls/hr IV Q6H [facility] Last Infusion: 07/15/24 13:37 Dose: Infused Documented By: CONNIE Vancomycin HCl 1,000 mg/ (Sodium Chloride) 270 mls @ 270 mls/hr IV Q12H [facility] Last Infusion: 07/15/24 10:41 Dose: Infused Documented By: CONNIE Levalbuterol HCl (Levalbuterol Hcl 1.25 Mg/3 Ml Vial.Neb) 1.25 mg INHALE Q4H PRN PRN Reason: Shortness Of Breath/Wheezing Magnesium Hydroxide (Milk Of Magnesia 30 Ml Oral.Susp) 30 ml PO DAILY PRN PRN Reason: Constipation Melatonin (Melatonin 3 Mg Tablet) 6 mg PO BEDTIME PRN PRN Reason: Insomnia Methylprednisolone Sodium Succinate (Methylprednisolone Sod Succ 125 Mg/2 Ml Vial) 250 mg IVPUSH Q6H [facility] Last Admin: 07/15/24 09:19 Dose: 250 mg Documented By: CONNIE Omeprazole (Omeprazole 20 Mg Capsule.) 20 mg PO DAILY@0630 [facility] Last Admin: 07/15/24 06:01 Dose: 20 mg Documented By: SULEMAN Ondansetron HCl (Ondansetron Hcl 4 Mg/2 Ml Vial) 4 mg IVPUSH Q8H PRN PRN Reason: Nausea and Vomiting Pharmacy Consult (Consult Rx Vancomycin Dosing) 1 each MISCELLANE DAILY PRN PRN Reason: Consult order Sodium Chloride (0.9 % Sodium Chloride Flush 3 Ml Syringe) 3 ml IVFLUSH QSHIFT [facility] Last Admin: 07/15/24 09:20 Dose: 3 ml Documented By: OCNNIE Trazodone HCl (Trazodone Hcl 50 Mg Tablet) 50 mg PO BEDTIME PRN PRN Reason: insomnia Labs 07/14/24 15:47 07/15/24 10:02 Labs: Laboratory Results - last 24 hr 07/14/24 07/14/24 07/14/24 15:47 20:01 22:27 MCV 87.8 MCH 28.2 MCHC 32.2 RDW 13.6 Plt Count 256 MPV 9.6 Immature Gran % (Auto) 0.8 H Neut % (Auto) 74.3 H Lymph % (Auto) 17.5 L Cross % (Auto) 4.5 Eos % (Auto) 1.9 Baso % (Auto) 1.0 Lymph # (Auto) 1.1 L Cross # (Auto) 0.3 Eos # (Auto) 0.1 Baso # (Auto) 0.1 Abs Immat Gran (auto) 0.05 H Absolute Neuts (auto) 4.7 Absolute Nucleated RBC 0.000 Nucleated RBC % (auto) 0.0 Anion Gap 12 Estim Creat Clear Calc 86.0 Estimated GFR > 60 Random Glucose 112 Lactic Acid 3.2 H* Lactic Acid F/U @ 2Hr 2.9 H* Lactic Acid F/U @ 4Hr Calcium 9.2 Total Bilirubin 0.5 AST 37 H ALT 19 Alkaline Phosphatase 78 Total Protein 8.9 H Albumin 3.0 L Influenza Type A (PCR) NEGATIVE Influenza Type B (PCR) NEGATIVE RSV RNA Qual (PCR) NEGATIVE SARS-CoV-2 RNA (RT-PCR) NEGATIVE 07/15/24 07/15/24 00:41 10:02 MCV MCH MCHC RDW Plt Count MPV Immature Gran % (Auto) Neut % (Auto) Lymph % (Auto) Cross % (Auto) Eos % (Auto) Baso % (Auto) Lymph # (Auto) Cross # (Auto) Eos # (Auto) Baso # (Auto) Abs Immat Gran (auto) Absolute Neuts (auto) Absolute Nucleated RBC Nucleated RBC % (auto) Anion Gap Estim Creat Clear Calc 78.3 Estimated GFR > 60 Random Glucose Lactic Acid Lactic Acid F/U @ 2Hr Lactic Acid F/U @ 4Hr 3.2 H* Calcium Total Bilirubin AST ALT Alkaline Phosphatase Total Protein Albumin Influenza Type A (PCR) Influenza Type B (PCR) RSV RNA Qual (PCR) SARS-CoV-2 RNA (RT-PCR) Assessment and Plan (1) Sinus tachycardia: Status: Acute (2) Pneumonia: Status: Acute (3) Acute on chronic hypoxic respiratory failure: Status: Acute Plan 48-year-old female with past medical history significant for Crohn disease, IgA gammopathy, interstitial lung disease, being admitted due to worsening shortness of breath hypoxia and tachycardia not responding to oral steroids. Acute on chronic hypoxic respiratory failure due to interstitial pulmonary disease/pneumonia CTA chest showed ground-glass density, interlobular septal thickening, bronchiectasis and multiple nodules some of which are cavitary, cavitary lesion may reflect septic emboli in the right clinical setting, septal thickening may reflect diffuse edema or viral infectious process such as COVID. RSV COVID and flu is negative Normal CBC and electrolytes,no fevers,tachycardic Continue IV Solu Medrol 250 mg q.6 hours x3 days Continue azathioprine/DuoNeb q.i.d./cough syrup as needed DC IV Zosyn and vanco, place on IV Levaquin 750 Q 24 hours as per pulmonology recommendation Continue oxygen, wean as tolerated on baseline 2 L of home oxygen recently increased to 4-5 L. Sinus tachycardia Cardiology consult TSH 1.97 in June 20 Follow echo Acute lactic acidosis not due to sepsis likely due to updraft treatment will cancel further lab draws. Crohn disease no acute exacerbation DVT prophylaxis with Lovenox GI prophylaxis with by mouth PPI History of insomnia continue trazodone as needed Full code Patient will require continued inpatient hospital stay due to worsening shortness of breath and increased oxygen requirement will require expert consultation and high-dose IV steroids. Quality Stroke Does the patient have a stroke diagnosis?: No VTE Prior VTE?: No VTE Risk Level:: Medical - moderate - high VTE Device Contraindication: Treatment Not Indicated VTE Drug Contraindication: N/A - Med Ordered
[2024-07-15] MEDS: levoFLOXacin/D5W 750 MG/150 ML PIGGYBACK 100 MG IV (15:46)
[2024-07-15] MEDS: Enoxaparin Sodium 40 MG/0.4 ML SYRINGE SUBCUT (17:57)
[2024-07-16] VITALS (9 sets, daily range): BP systolic 110–120; BP diastolic 61–73; PULSE 64–117; RESP 16–20; TEMP 36.3–36.4; O2SAT 94–99
[2024-07-16] MEDS: methylPREDNISolone Sod Succ 125 MG/2 ML VIAL 250 MG IVPUSH ×4 (04:34→22:15)
[2024-07-16] MEDS: Omeprazole 20 MG CAPSULE.DR PO (06:34)
[2024-07-16] MEDS: Albuterol/Iprat 2.5/0.5MG 3 ML AMPUL.NEB INHALE ×4 (07:38→19:46)
[2024-07-16] MEDS: Ferrous Sulfate 324 MG TABLET.DR PO (10:43)
[2024-07-16] MEDS: azaTHIOprine 50 MG TABLET 200 MG PO (10:43)
[2024-07-16] MEDS: 0.9 % Sodium Chloride Flush 3 ML SYRINGE IVFLUSH ×3 (10:47→22:16)
--- NOTE | 2024-07-16 11:27 | P.PNIM_ITS ---
Subjective Subjective Date of Service: 07/16/24 Interval History: Being followed for shortness of breath History obtain through daughter at bedside patient is [place]-speaking only Feels better, less shortness of breath, noted to have less tachycardia, no acute issues, slept well tolerating diet. Review of Systems All other system reviewed and are negative. Physical Exam 2 Vital Signs: Vital Signs: Last Vital Signs Temp 97.3 F 07/16/24 07:31 Pulse 81 07/16/24 10:42 Resp 18 07/16/24 10:42 BP 120/73 07/16/24 07:31 Pulse Ox 94 07/16/24 11:20 O2 Del Method Nasal Cannula 07/16/24 11:20 O2 Flow Rate 2 07/16/24 11:20 Oxygen Flow Rate 6 07/14/24 15:17 BMI result Body Mass Index 23.6 Const: Other: General awake alert x3, in no acute distress. Moist mucous membrane Neck no JVD. CVS regular rate rhythm Respiratory lungs bibasilar dry crackles, no wheeze, no rhonchi. Gastrointestinal abdomen soft, non tender, bowel sounds audible, no guarding , no rigidity. Extremities no edema. Neuro non focal Skin no rash Psych appropriate affect Objective Data Active Medications Acetaminophen (Acetaminophen 325 Mg Tablet) 650 mg PO Q6H PRN PRN Reason: Pain, Mild 1-3,fever,headache Albuterol/Ipratropium (Albuterol/Iprat 2.5/0.5mg 3 Ml Ampul.Neb) 3 ml INHALE RQID [facility] Last Admin: 07/16/24 10:41 Dose: 3 ml Documented By: PAULA Azathioprine (Azathioprine 50 Mg Tablet) 200 mg PO DAILY [facility] Last Admin: 07/16/24 10:43 Dose: 200 mg Documented By: CONNIE Calcium Carbonate (Calcium Carbonate 750 Mg Tab.Chew) 750 mg PO Q4H PRN PRN Reason: Heartburn Enoxaparin Sodium (Enoxaparin Sodium 40 Mg/0.4 Ml Syringe) 40 mg SUBCUT Q24H [facility] Last Admin: 07/15/24 17:57 Dose: 40 mg Documented By: CONNIE Ferrous Sulfate (Ferrous Sulfate 324 Mg Tablet.Dr) 324 mg PO DAILY [facility] Last Admin: 07/16/24 10:43 Dose: 324 mg Documented By: HO.PARROWA Guaifenesin/Dextromethorphan (Guaifenesin Dm 200/20/10 Ml 10 Ml Syrup) 10 ml PO Q6H PRN PRN Reason: Cough Levofloxacin (Levaquin) 750 mg in 150 mls @ 100 mls/hr IV Q24H [facility] Last Infusion: 07/15/24 17:16 Dose: Infused Documented By: CONNIE Levalbuterol HCl (Levalbuterol Hcl 1.25 Mg/3 Ml Vial.Neb) 1.25 mg INHALE Q4H PRN PRN Reason: Shortness Of Breath/Wheezing Magnesium Hydroxide (Milk Of Magnesia 30 Ml Oral.Susp) 30 ml PO DAILY PRN PRN Reason: Constipation Melatonin (Melatonin 3 Mg Tablet) 6 mg PO BEDTIME PRN PRN Reason: Insomnia Methylprednisolone Sodium Succinate (Methylprednisolone Sod Succ 125 Mg/2 Ml Vial) 250 mg IVPUSH Q6H [facility] Last Admin: 07/16/24 10:43 Dose: 250 mg Documented By: CONNIE Omeprazole (Omeprazole 20 Mg Capsule.) 20 mg PO DAILY@0630 [facility] Last Admin: 07/16/24 06:34 Dose: 20 mg Documented By: GERARDO Ondansetron HCl (Ondansetron Hcl 4 Mg/2 Ml Vial) 4 mg IVPUSH Q8H PRN PRN Reason: Nausea and Vomiting Sodium Chloride (0.9 % Sodium Chloride Flush 3 Ml Syringe) 3 ml IVFLUSH QSHIFT [facility] Last Admin: 07/16/24 10:47 Dose: 3 ml Documented By: CONNIE Trazodone HCl (Trazodone Hcl 50 Mg Tablet) 50 mg PO BEDTIME PRN PRN Reason: insomnia Labs 07/14/24 15:47 07/15/24 10:02 Microbiology Microbiology Results: Microbiology 07/14/24 20:07 Blood Culture - Preliminary Blood - Venous No growth after 24 hours. 07/14/24 20:01 Blood Culture - Preliminary Blood - Venous No growth after 24 hours. Assessment and Plan (1) Sinus tachycardia: Status: Acute (2) Acute on chronic hypoxic respiratory failure: Status: Acute (3) Supplemental oxygen dependent: Status: Acute Plan 48-year-old female with past medical history significant for Crohn disease, IgA gammopathy, interstitial lung disease, being admitted due to worsening shortness of breath hypoxia and tachycardia not responding to oral steroids. Acute on chronic hypoxic respiratory failure due to interstitial pulmonary disease/pneumonia Feels better denies palpitation CTA chest showed ground-glass density, interlobular septal thickening, bronchiectasis and multiple nodules some of which are cavitary, cavitary lesion may reflect septic emboli in the right clinical setting, septal thickening may reflect diffuse edema or viral infectious process such as COVID. RSV COVID and flu is negative Normal CBC and electrolytes,no fevers,tachycardic Continue IV Solu Medrol 250 mg q.6 hours xD2/3 days Continue azathioprine/DuoNeb q.i.d./cough syrup as needed s/p IV Zosyn and vanco x 24 h now on IV Levaquin 750 Q 24 hours started on July 15 Continue oxygen, wean as tolerated on baseline 2 L of home oxygen recently increased to 4-5 L. Sinus tachycardia Improving TSH 1.97 in June 20 Seen by Cardiology, echo ordered Acute lactic acidosis not due to sepsis likely due to updraft treatment will cancel further lab draws. Crohn disease no acute exacerbation DVT prophylaxis with Lovenox GI prophylaxis on PPI History of insomnia continue trazodone as needed Full code Patient will require continued inpatient hospital stay due to worsening shortness of breath and increased oxygen requirement on high-dose IV steroids/needs echo and expert consultation Quality Stroke Does the patient have a stroke diagnosis?: No VTE Prior VTE?: No VTE Risk Level:: Medical - moderate - high VTE Device Contraindication: Treatment Not Indicated VTE Drug Contraindication: N/A - Med Ordered
--- NOTE | 2024-07-16 15:02 | MHC.CM.PN ---
CM MET WITH PT WITH A FOREIGN COLLECTION CLERK PT LIVES WITH HER DAUGHTER AND IS INDEPENDENT WITH CARE SHE HAS HOME O2 FROM [facility] COPY OF HCP REQUESTED PCP: CAITLYN FLORES DCP: HOME NO SERVICES DAUGHTER TO TRANSPORT
[2024-07-16] MEDS: levoFLOXacin/D5W 750 MG/150 ML PIGGYBACK 100 MG IV (16:39)
[2024-07-16] MEDS: Enoxaparin Sodium 40 MG/0.4 ML SYRINGE SUBCUT (18:13)
[2024-07-17 03:12] VITALS: BP 129/71; PULSE 66; RESP 16; TEMP 36; O2SAT 97
[2024-07-17] MEDS: Omeprazole 20 MG CAPSULE.DR PO (04:56)
[2024-07-17] MEDS: methylPREDNISolone Sod Succ 125 MG/2 ML VIAL 250 MG IVPUSH ×3 (04:56→15:18)
--- NOTE | 2024-07-17 07:00 | CA_ITS ---
Transthoracic Echocardiogram Patient (Last, First, Middle): Helen Angela, Gender: Female Date of : 1975 Age: 48 Procedure Date: 07/17/2024 Procedure Type: Transthoracic Echocardiogram Location: S3E Height: 154.94 cm Weight: 56.7 kg BSA: 1.55 m2 Heart Rate: bpm BP: 129 / 71 mmHg Actuarial Technician: PALMA Referring MD: Herman Finley MD Commercial Lender: Tray Delgado MD Symptoms: tachycardia Study Quality: Adequate ECG Rhythm: Sinus tachycardia Conclusions: - Essentially normal study Findings Left Ventricle Normal left ventricular size, thickness, and systolic function. The visually estimated ejection fraction is between 65-70%. Diastolic function is normal for age. Right Ventricle Normal right ventricular cavity size and systolic function. Atria Both atria are normal in size. There is no evidence of interatrial shunt. Aortic Valve Normal aortic valve structure and function. There is no aortic valve stenosis. There is no aortic valve regurgitation. Mitral Valve Normal mitral valve structure and function. There is trace mitral valve regurgitation. There is no mitral valve stenosis. Pulmonic Valve The pulmonic valve is likely normal. Tricuspid Valve Normal tricuspid valve structure. There is mild tricuspid valve regurgitation. The right ventricular systolic pressure is normal. The right ventricular systolic pressure is 32 mmHg. Normal right atrial pressure. There is no evidence of pulmonary hypertension. Great Vessels All visible segments of the aorta are normal in size. The visualized portions of the pulmonary artery and branches are normal. Venous The inferior vena cava is normal in size and collapses greater than 50% with inspiration. Pericardium/Pleural There is no evidence of pericardial effusion. Prior Study Comparison No prior study available for comparison. Measurements 2D Linear Measurements IVSd: 1.00 0.6-0.9/0.6-1.0 cm LVIDd: 4.25 3.9-5.3/4.2-5.9 cm LVIDd Index: 2.74 2.4-3.2/2.2-3.1 cm/m2 LVIDs: 2.56 2.0-3.6 cm LVPWd: 0.87 0.7-1.1 cm LA Diam: 3.20 2.7-3.8/3.0-4.0 cm LAIDs Index: 2.06 1.5-2.3 cm/m2 LV Mass: 158.67 67-162/88-224 g LV Mass Index: 102.37 43-95/49-115 g/m2 LVOT Diam: 2.10 3.0+(-)1.3 cm 2D Systolic Function EF 4C: 59.30 >55% EF 2C: 74.70 >55% EF BiP: 67.70 >55% Mitral Valve MV Pk E: 0.83 MV PK A: 0.91 MV Decel Time: 98.00 E/A: 0.90 E'Lateral: 11.10 E'Medial: 10.00 E/E' Med: 8.30 E/E' Lat: 7.50 PHT: 29.00 MVA PHT: 7.59 Decel [place]: 8.47 Aortic Valve AoV Pk Veto: 1.51 AoV Mn Veto: 1.12 AoV VTI: 0.28 AoV Pk Grad: 9.00 Aov Mn Grad: 5.00 NATHALIA Cont.VTI: 2.72 LVOT LVOT Pk Veto: 1.43 LVOT Mn Veto: 0.87 LVOT VTI: 0.22 LVOT Pk Grad: 8.00 LVOT Mn Grad: 4.00 LVOT Diam: 2.10 LVOT Area: 3.46 Diastolic Function MV Pk E: 0.83 MV Pk A: 0.91 E/A: 0.90 E'Medial: 10.00 E/E' Med: 8.30 E' Laterial: 11.10 E/E' Lat: 7.50 Right Ventricle TAPSE (mm): 27.70 TVS' Veto: 19.80 Tricuspid Valve TR Pk Veto: 2.71 TR Pk Grad: 29.00 RA Press: 3.00 RVSP: 32.00 Great Vessels Aorta Sinus of Valsalva: 3.40 2.0-3.[address] [place]: 2.47 1.7-3.4 cm Ao Asc: 2.80 2.1-3.4 cm Updated in Other Vendor System with Status of Final Tray Delgado MD electronically signed on 07/17/2024 4:28:02 PM with status of Final
[2024-07-17 08:00] VITALS: BP 142/86; PULSE 64; RESP 16; TEMP 36; O2SAT 97
[2024-07-17] MEDS: Albuterol/Iprat 2.5/0.5MG 3 ML AMPUL.NEB INHALE (09:00)
[2024-07-17 09:02] VITALS: PULSE 67; RESP 15; O2SAT 99
[2024-07-17] MEDS: 0.9 % Sodium Chloride Flush 3 ML SYRINGE IVFLUSH ×2 (09:06→15:18)
[2024-07-17] MEDS: Ferrous Sulfate 324 MG TABLET.DR PO (09:07)
[2024-07-17] MEDS: azaTHIOprine 50 MG TABLET 200 MG PO (09:07)
--- NOTE | 2024-07-17 15:00 | PM.DS ---
DS: Providers Provider Date of Service: 07/17/24 Date of admission: 07/14/24 17:27 Date of discharge: 07/17/24 Primary care physician: Nolberto Garcia MD Consults: 07/15/24 15:16 Consult to Cardiology Routine Consulting Provider: [facility] Reason for consultation: hypoxia Has provider been notified: No DS: Diagnosis Discharge Diagnosis (1) Sinus tachycardia: Status: Acute (2) Acute on chronic hypoxic respiratory failure: Status: Acute (3) Supplemental oxygen dependent: Status: Acute DS: Summary Hospital Course Hospital Course: History of presenting illness: Date of Service: 07/14/24 Chief Complaint: Shortness of breaths/cough/hypoxia 48-year-old female with past medical history significant for Crohn's disease, IgA gammopathy, nonsmoker, history of COVID 19 in 2019, history of esophageal candidiasis, status post fluconazole therapy, interstitial lung disease chronically on 2 L of home oxygen noticed to have worsening shortness of breath times 3-4 weeks, being followed by head of transport logistics Dr. Greene and started on azathioprine, and was given tapering dose of prednisone currently on 10 mg daily her oxygen was also increased to 4-5 L per despite high-dose prednisone and oxygen patient continued to have significant hypoxia, shortness of breath and tachycardia therefore she was referred to emergency room by her head of transport logistics, patient denies fever, no chills, no sick contacts, no recent history of travel she complains of cough with mucopurulent sputum she is currently on 10 mg of prednisone at home, complaining of shortness of breath with activity and at rest, chest x-ray showed low lung volumes with stable diffuse interstitial changes consistent with chronic interstitial lung disease no superimposed abnormality noted, CTA chest obtained report pending patient will be admitted to [facility] for high-dose steroids and close respiratory monitoring. Hospital course: 48-year-old female with past medical history significant for Crohn disease, IgA gammopathy, interstitial lung disease, being admitted due to worsening shortness of breath hypoxia and tachycardia not responding to oral steroids. Admitted to [facility] with a diagnosis of Acute on chronic hypoxic respiratory failure due to interstitial pulmonary disease/pneumonia, patient placed on IV Solu Medrol to 50 mg q.6 hours, was continued on azathioprine, DuoNeb q.i.d., IV antibiotics initially vancomycin and Zosyn later transitioned to IV Levaquin, CTA chest showed ground-glass density, interlobular septal thickening, bronchiectasis and multiple nodules some of which are cavitary, cavitary lesion may reflect septic emboli in the right clinical setting, septal thickening may reflect diffuse edema or viral infectious process such as COVID, patient responded well to above treatment palpitations and oxygenation improved, patient was followed closely by pulmonology, Dr. Greene recommend to discharge patient home on single-strength Bactrim 1 tablet daily, prednisone 60 mg daily and CellCept 500 mg twice daily, Imuran was discontinued , prior to discharge home O2 eval was obtained patient qualifies for 3 L of oxygen with ambulation, patient has home O2 at home, in regard to sinus tachycardia patient was evaluated by chair trimmer her TSH is 1.97 echocardiogram is obtained report pending recommend outpatient follow-up with Cardiology and pulmonology. Acute lactic acidosis not due to sepsis likely due to updraft treatment. Crohn disease no acute exacerbation History of insomnia continue trazodone as needed Time Attestation Discharge Coordination Time (in mins): 40 Quality: Safe Use of Opioids Does Pt have an Active Cancer Diagnosis on the Problem List?: No Quality: Stroke Does the patient have a stroke diagnosis?: No Physical Exam Vital Signs: Vital Signs: Last Vital Signs Temp 96.8 F 07/17/24 08:00 Pulse 67 07/17/24 09:02 Resp 15 07/17/24 09:02 BP 142/86 H 07/17/24 08:00 Pulse Ox 97 07/17/24 08:00 O2 Del Method Nasal Cannula 07/17/24 08:00 O2 Flow Rate 2 07/17/24 08:00 Oxygen Flow Rate 6 07/14/24 15:17 BMI result Body Mass Index 23.6 Const: Other: General awake alert x3, in no acute distress. Moist mucous membrane Neck no JVD. CVS regular rate rhythm Respiratory lungs bibasilar dry crackles, no wheeze, no rhonchi. Gastrointestinal abdomen soft, non tender, bowel sounds audible, no guarding , no rigidity. Extremities no edema. Neuro non focal Skin no rash Psych appropriate affect DS: Data Data Completed and Pending Labs on day of discharge: Preliminary micro results at discharge 07/14/24 20:07 Blood Culture - Preliminary Blood - Venous No growth after 48 hours. 07/14/24 20:01 Blood Culture - Preliminary Blood - Venous No growth after 48 hours. Discharge Plan Discharge Anticipated Discharge Date/Time: 07/17/24 14:52 Patient Disposition: Home, Self-Care Discharge Diagnosis: Acute on chronic hypoxic respiratory failure due to interstitial pulmonary disease Pneumonia Referrals: Po,Nolberto Boykin MD [Primary Care Provider] - 1 Week Discharge Medications: New sulfamethoxazole-trimethoprim 400-80 mg Tablet 1 tab PO DAILY Qty: 30 0RF dextromethorphan-guaifenesin 10-100 mg/5 mL Syrup 10 ml PO Q6H PRN (Reason: Cough) Qty: 237 0RF prednisone 20 mg tablet 60 mg PO DAILY Qty: 180 0RF Rx Instructions: Take prednisone 60 mg (3x20mg) by mouth daily with food further taper as per pulmonology mycophenolate mofetil 250 mg Capsule 500 mg PO BID Qty: 120 0RF Continued trazodone 50 mg tablet 50 mg PO BEDTIME PRN (Reason: sleep) Qty: 90 2RF ferrous sulfate 325 mg (65 mg iron) tablet 325 mg PO DAILY 90 Days Qty: 90 2RF metronidazole 0.75 % cream 1 appl topical BEDTIME PRN (Reason: redness) omeprazole 10 mg capsule,delayed release(DR/EC) 10 mg PO DAILY@0630 levalbuterol HCl 1.25 mg/3 mL Solution For Nebulization 1.25 mg inhalation Q4H PRN (Reason: Shortness Of Breath/Wheezing) Qty: 150 1RF (DME) nebulizers Misc See Rx Instructions .Route Qty: 1 0RF Rx Instructions: As directed (DME) compressor, for nebulizer Device See Rx Instructions .Route Qty: 1 0RF Rx Instructions: As directed acetaminophen [Tylenol Extra Strength] 500 mg tablet 500 mg PO Q6H PRN (Reason: fever or pain) Qty: 14 0RF lidocaine [Lidoderm] 5 % adhesive patch,medicated 1 patch topical DAILY MDD remove after 12 hours PRN (Reason: pain) Qty: 30 0RF Rx Instructions: leave on most painful area for up to 12 hrs nystatin 100,000 unit/mL suspension 400,000 unit buccal QID PRN (Reason: Rash) (DME) Oxygen Home Use Kit See Rx Instructions .Route Qty: 1 0RF Rx Instructions: As directed ojvlkzjaa-[id number]-ljso 3-2.5 % (7 gram) kit [address] BID PRN (Reason: Pain) Discontinued azathioprine 50 mg tablet 200 mg PO DAILY Rx Instructions: Take 1 tab daily for 7 days, then Take 2 tabs daily for 7 days, then Take 3 tabs daily for 7 days, then Take 4 tabs daily prednisone 10 mg tablet 10 mg PO DIRECTED Qty: 70 0RF Rx Instructions: Take 4 tabs daily for 7 days, then go down by 1 tab every 7 days Discharge Orders: Discharge Order (Routine); Ordered 07/17/24 Ordered By: Columba Gary Diet: Advance to usual diet Activity on Discharge: As tolerated Stand Alone Forms: Patient Portal Discharge page Print Language: [place] Care Plan Goals: Take Bactrim 1 tablet daily Take prednisone 60 mg daily as prescribed with food Discontinue azathioprine Take CellCept 500 mg 1 tablet twice daily Take cough medication as needed Use 3 L of oxygen with ambulation Health Concerns: Take all home medications as before Plan of Treatment: Outpatient follow-up with primary care physician/pulmonology Assessment: As above
--- NOTE | 2024-07-17 15:24 | MHC.CM.PN ---
Patient is discharged to home today, self care. She has arranged for a family member to provide transportation home.
[2024-07-17] MEDS: levoFLOXacin/D5W 250 MG/50 ML PIGGYBACK 50 MG IV (15:31)
[2024-07-17] MEDS: levoFLOXacin/D5W 500 MG/100 ML PIGGYBACK 100 MG IV (15:31)
[2024-07-17 15:49] VITALS: BP 133/78; PULSE 71; RESP 12; TEMP 36.4; O2SAT 100
== END 2024-07-17 17:33 | disposition home or self-care (01) | DRG 139 ==
LOC: HO.ED 16:11 → HO.EDOVER 17:41 → HO.S3 07-15 01:50
PROVIDERS: Physician Assistant; Student in an Organized Health Care Education/Training Program; Admitting Provider Hospitalist; Emergency Provider Internal Medicine; PCP Internal Medicine; Visit Provider Hospitalist
DX: J18.9 Pneumonia, unspecified organism (principal); J47.0 Bronchiectasis with acute lower respiratory infection; Z99.81 Dependence on supplemental oxygen; D47.2 Monoclonal gammopathy; G47.00 Insomnia, unspecified; K50.90 Crohn's disease, unspecified, without complications; R00.0 Tachycardia, unspecified; Z20.822 Contact with and (suspected) exposure to COVID-19; Z79.899 Other long term (current) drug therapy
CPT/HCPCS: 0241U; 36415; 71045; 71275; 80053; 82565; 83605; 85025; 87040; 93005; 93306; 94640; 99285; J1650; J1956; J2543; J2919; J3370; J3371; Q9957; Q9967

== ENCOUNTER → 2024-07-14 16:13 | Outpatient (BNV) | payer OTHER, SELFPAY | PROVIDERS: Emergency Provider Internal Medicine; PCP Internal Medicine; Visit Provider Radiology Diagnostic Radiology | DX: J84.9 Interstitial pulmonary disease, unspecified (principal) | CPT/HCPCS: 71045; 71275 ==

== ENCOUNTER 2024-07-14 17:27 | Outpatient (BNV) | payer OTHER, SELFPAY | END 2024-07-17 07:00 | PROVIDERS: Admitting Provider Hospitalist; Emergency Provider Internal Medicine; PCP Internal Medicine; Visit Provider Internal Medicine Cardiovascular Disease | DX: I36.1 Nonrheumatic tricuspid (valve) insufficiency (principal); R00.0 Tachycardia, unspecified | CPT/HCPCS: 93306 ==

== ENCOUNTER → 2024-07-14 17:27 | Outpatient (BNV) | payer OTHER, SELFPAY | PROVIDERS: Admitting Provider Hospitalist; Emergency Provider Internal Medicine; PCP Internal Medicine; Visit Provider Internal Medicine Cardiovascular Disease | DX: J96.21 Acute and chronic respiratory failure with hypoxia (principal); R00.0 Tachycardia, unspecified | CPT/HCPCS: 93010; 99223 ==

== ENCOUNTER → 2024-07-14 17:27 | Outpatient (BNV) | payer OTHER, SELFPAY | PROVIDERS: Admitting Provider Hospitalist; Emergency Provider Internal Medicine; PCP Internal Medicine; Visit Provider Hospitalist | DX: J96.21 Acute and chronic respiratory failure with hypoxia (principal); R00.0 Tachycardia, unspecified; J18.9 Pneumonia, unspecified organism | CPT/HCPCS: 99223; 99232; 99239 ==

== ENCOUNTER 2024-07-27 10:41 | Outpatient (AMB) | payer OTHER, SELFPAY ==
--- NOTE | 2024-07-27 10:47 | MHC.PC.OV ---
Vital Signs 07/27/24 10:52 07/27/24 12:28 Height 5 ft 1 in Weight 125 lb 4 oz BMI 23.7 BP 106/80 Blood Pressure Location Lt brachial Position Sitting Pulse 125 H 110 H Pulse Source Pulse Oximeter Pulse Oximeter Temp 97.1 F Temp Source Temporal Artery Scan Pulse Oximetry (%) 93 97 Oxygen Delivery Method Nasal Cannula Nasal Cannula Oxygen Flow Rate 2 3 Intake [place] [facility] [place] Bacterial infection Claim Representative Required: No Accompanied by: Mother Allergies No Known Allergies [No Known Allergies*] Allergy (Verified 07/27/24 10:56) Medication List - Last Reconciled 07/27/24 by Sheri Jose PA-C acetaminophen (Tylenol Extra Strength) 500 mg PO Q6H PRN compressor, for nebulizer As directed dextromethorphan-guaifenesin 10-100 mg/5 mL 10 mL PO Q6H PRN ferrous sulfate 325 mg PO DAILY 90 days levalbuterol HCl 1.25 mg (3 mL) inhalation Q4H PRN lidocaine 5% (Lidoderm) 1 patch topical DAILY PRN MDD remove after 12 hours jbmxhkxac-ukihjjipmensub-njso 3-2.5 % (7 gram) 1 appl NV BID PRN metronidazole 0.75% 1 appl topical BEDTIME PRN mycophenolate mofetil 500 mg (2 x 250 mg) PO BID nebulizers As directed nystatin 400,000 units buccal QID PRN omeprazole 10 mg PO DAILY@0630 Oxygen Home Use As directed prednisone 60 mg (3 x 20 mg) PO DAILY sulfamethoxazole-trimethoprim 400-80 mg 1 tab PO DAILY trazodone 50 mg PO BEDTIME PRN Tobacco use date assessed: 07/27/24 Dental Screening Dental Screen Date: 07/27/24 Did you have a dental visit in the last 12 months?: Yes Did you have a dental problem in the last 6 months where you did not have access to dental care?: No Was dental information given to patient?: Patient has dentist HPI [facility] [place] Bacterial infection HPI Details 48-year-old female with past medical history of interstitial lung disease chronically on 2 L of home oxygen, Crohn's disease, GERD, generalized anxiety disorder last seen 04/2024 coming in for hospital discharge follow up. In review of the notes, patient was seen in [facility] [place] [facility] [place]/14/2023 for worsening shortness of breath was referred to emergency department by her photographic equipment inspector. Patient was found to have acute on chronic hypoxic respiratory failure due to interstitial pulmonary disease/pneumonia started on IV Solu-Medrol and continued on azathioprine, DuoNeb and started on IV Levaquin. CTA showing cavitary lesion suspicious of septic emboli. Patient was consulted by pulmonology who recommended Bactrim, prednisone and CellCept. Advised to follow up with Cardiology and pulmonology outpatient discharged home 07/20/2024. balloon sander [id number] Malou was used for the duration of this visit. Patient presents today with her mother. She states her breathing has been much improved and has been monitoring her saturation at home which has been within normal limits. She is currently on 3 L of oxygen at home and feels her breathing has been improved. She is no longer coughing she has not had fever and her weakness has been improving. She is taking the medications without complication and denies any abdominal pain or diarrhea from the antibiotics. She does mentioned since discharge from the hospital she has a small sore on bilateral buttocks. [facility] Medical History Supplemental oxygen dependent Pneumomediastinum ILD (interstitial lung disease) Breast cancer screening by mammogram Overweight (BMI 25.0-29.9) Abnormal CT scan, chest Hemorrhoids with complication Colon cancer screening Generalized abdominal pain Visual impairment Duodenal ulcer GERD (gastroesophageal reflux disease) Obesity (BMI 30-39.9) Menometrorrhagia Seizure in childhood Sclerosing mesenteritis GERD without esophagitis Surgical History History of esophagogastroduodenoscopy (EGD) Hx of colonoscopy Hx of cholecystectomy (~2005) Hx of hysterectomy Hx of section Family History Father No problems noted. Mother No problems noted. Daughter No problems noted. Son No problems noted. Brother Substance abuse Social History Household Members: Children Housing: House Do you presently have visiting nurse or other home services: No Alcohol intake: never Patient Tobacco Use Status: Never used Tobacco e-Cigarette/Vaping Use: Never Used Second Hand Smoke Exposure: No service: No Current occupational status: employed and unemployed Current occupation: [employer] Cognitive needs: No Hearing needs: No Vision needs: No Questionnaire PHQ-9 Over the last 2 weeks, how often have you been bothered by any of the following problems? 1. Little interest or pleasure in doing things: not at all 2. Feeling down, depressed, or hopeless: not at all 3. Trouble falling or staying asleep, or sleeping too much: not at all 4. Feeling tired or having little energy: not at all 5. Poor appetite or overeating: not at all 6. Feeling bad about yourself - or that you are a failure or have let yourself or your family down: not at all 7. Trouble concentrating on things, such as reading the newspaper or watching television: not at all 8. Moving or speaking so slowly that other people could have noticed. Or the opposite - being so fidgety or restless that you have been moving around a lot more than usual: not at all 9. Thoughts that you would be better off or of hurting yourself in some way: not at all Total score: 0 Depression Screening Interpretation: Negative Depression Screening Done: Yes 72386 - PHQ-9 Billing: Yes Source: Developed by Drs. Jerod Grover, Heather Bennett, Georgi Contreras and colleagues, with an educational cristal from [employer]. Thrive Questionnaire Date Thrive assessed: 07/27/24 I am a: Patient What is your living situation today?: I have a steady place to live Within the past 12 months, did the food you bought not last and you didn't have the money to get more?: Never true Within the past 12 months, did you worry whether your food would run out before you got money to buy more?: Never true Do you have trouble paying for medicines?: No Do you have trouble getting transportation to medical appointments?: No Do you have trouble paying your heating and electricity bill?: No Do you have trouble taking care of your child, family member or friend?: No Do you have trouble with day-to-day activities such as bathing, preparing meals, shopping, managing finances, etc.?: No Are you currently unemployed and looking for a job?: No Are you interested in more education?: No Please select the resources that you would like help with: None Currently or been in a relationship where the following occur: No concerns reported THRIVE Score: 0 AUDIT C Alcohol Use Questionnaire (AUDIT-C) 1. How often do you have a drink containing alcohol?: Never 2. How many drinks containing alcohol do you have on a typical day when you are drinking?: 1 or 2 (0) 3. How often do you have six or more drinks on one occasion?: Never Total Score: 0 YSABEL-7 AMB Questionnaire YSABEL-7 Date YSABEL - 7 assessed: 07/27/24 Feeling nervous, anxious, or on edge: 0 = Not at all Not being able to stop or control worryin = Not at all Worrying too much about different things: 0 = Not at all Trouble relaxin = Not at all Being so restless that it is hard to sit still: 0 = Not at all Becoming easily annoyed or irritable: 0 = Not at all Feeling afraid as if something awful might happen: 0 = Not at all Total YSABEL-7 score (0-4 normal; 5-9 mild; 10-14 moderate; 15-21 severe): 0 Source: Developed by Drs. Jerod Grover, Heather Bennett, Georgi Contreras and colleagues, with an educational cristal from [employer]. YSABEL-7 Assessment Billing YSABEL-7 Assessment Tool: YSABEL-7 Assessment 62828 Review of Systems Const Denies body aches, Denies chills and Denies fever(s) Eyes Reports no additional complaints ENT Reports no additional complaints Card Denies chest pain, Denies syncope, Denies lightheadedness, Denies dyspnea and Reports dyspnea on exertion Resp Reports cough (very mild ), Denies excessive phlegm production, Denies dyspnea and Reports dyspnea on exertion GI Denies abdominal pain, Denies diarrhea, Denies nausea and Denies vomiting Reports no additional complaints Musc Reports no additional complaints Skin/Breast Details: small sore on both sides of the buttocks Neuro Denies syncope Psych Reports no additional complaints Endo Reports no additional complaints Physical exam (Primary Care) Vital Signs: Last Vital Signs Temp 97.1 F 07/27/24 10:52 Pulse 125 H 07/27/24 10:52 BP 106/80 07/27/24 10:52 Pulse Ox 93 07/27/24 10:52 Oxygen Delivery Method Nasal Cannula 07/27/24 10:52 Oxygen Flow Rate 2 07/27/24 10:52 BMI result Body Mass Index 23.7 Tobacco/Smoking Status: Tobacco use Status Tobacco use date assessed 07/27/24 07/27/24 10:59 Patient Tobacco Use Status Never used Tobacco 07/27/24 10:48 e-Cigarette/Vaping Use Never Used 07/27/24 10:48 PHQ-9: PHQ-9 Score PHQ-9: Total score 0 07/27/24 11:00 Depression Screening Interpretation: Negative Thrive Assessment: Date of Thrive Assessment Date Thrive assessed 07/27/24 07/27/24 10:57 Currently or been in a relationship where the following occur: No concerns reported Const General: cooperative, healthy appearing, comfortable and no acute distress Orientation/consciousness: patient oriented x3 HENMT Head: Yes normocephalic Ears: hearing grossly normal bilaterally General nose exam: Normal external nose present Eyes General: appearance normal, both eyes and all related structures Conjunctivae: conjunctivae normal Neck Neck: Yes full ROM and Yes no lymphadenopathy Resp Effort & Inspection: normal respiratory effort Auscultation: clear to auscultation bilaterally, crackles bilateral in the lower lung sanon, no rales, no rhonchi and no wheezes Cardio Rate: regular rate Rhythm: regular rhythm Skin General skin exam: no rashes or lesions noted Neuro General: patient oriented x3 Gait exam (Neuro): Normal gait present Extrem General: Yes normal to inspection, Yes full ROM and No edema Psych Affect: normal affect Attitude: cooperative Insight: Good insight present (Psych) Judgement: Good judgement present (Psych) Coding Level of Care Code Est Pt Level 3 (38734) Diagnoses Pressure injury of buttock, stage 1, unspecified laterality L89.301 Pressure injury location: buttock Pressure injury stage: stage 1 Laterality: unspecified laterality Supplemental oxygen dependent Z99.81 ILD (interstitial lung disease) J84.9 Additional Codes YSABEL-7 Assessment Billing - YSABEL-7 Assessment Tool: YSABEL-7 Assessment 34232 ([id number]) PHQ-9 - 99915 - PHQ-9 Billing: Yes ([id number]) Assessment & Plan Assessment & Plan (1) Pressure sore: Code(s): L89.90 - Pressure ulcer of unspecified site, unspecified stage Category: Medical Qualifiers: Pressure injury location: buttock Pressure injury stage: stage 1 Laterality: unspecified laterality Qualified Code(s): L89.301 - Pressure ulcer of unspecified buttock, stage 1 Plan: Patient brought in a picture of the sores on her buttocks and declined exam today. Based on the pictures likely a stage I pressure sore advised to use barrier cream which was prescribed today and follow up to the office if these worsen or do not improve. (2) Supplemental oxygen dependent: Code(s): Z99.81 - Dependence on supplemental oxygen Category: Medical Plan: Patient currently on supplemental oxygen 3 liters/minute at home has been maintaining normal oxygen saturation at home. (3) ILD (interstitial lung disease): Code(s): J84.9 - Interstitial pulmonary disease, unspecified Category: Medical Plan: Patient was recently admitted for acute on chronic hypoxic respiratory failure. She has been taking the Bactrim, prednisone and CellCept as prescribed and has been feeling much better since discharge from the hospital. She is no longer having a cough, shortness of breath or fevers. Her weakness has been improving as well. Advised patient to reach out to photographic equipment inspector as discharge paperwork recommended a follow up with her Pulmonary provider. She has a appointment coming up with Cardiology in August also with the recommendation of discharge paperwork. Continue on medication regimen as prescribed from the hospital continue on oxygen supplement 3 liters/minute. Plan This note was constructed using voice recognition software. While every effort has been made to ensure accuracy and laboratory operations coordinator, still areas may have been included sometimes these areas may affect the content or meeting of the given symptoms. Total time spent caring for the patient today was 20 minutes. This includes time spent before the visit reviewing the chart, time spent during the visit, and time spent after the visit and documentation. Medications: New omeprazole 10 mg PO DAILY@0630 90 caps 0RF zinc oxide 12% (Corona Protect (zinc oxide)) 1 appl topical TID 57 grams 0RF
[2024-07-27 10:52] VITALS: BP 106/80; PULSE 125; TEMP 36.2; O2SAT 93; BMI 23.7
[2024-07-27 12:28] VITALS: PULSE 110; O2SAT 97
== END 2024-07-27 11:43 | disposition home or self-care (01) ==
PROVIDERS: PCP Internal Medicine
DX: L89.301 Pressure ulcer of unspecified buttock, stage 1 (principal); Z99.81 Dependence on supplemental oxygen; J84.9 Interstitial pulmonary disease, unspecified

== ENCOUNTER → 2024-07-27 10:41 | Outpatient (BNVA) | payer OTHER, SELFPAY | PROVIDERS: PCP Internal Medicine | DX: L89.301 Pressure ulcer of unspecified buttock, stage 1 (principal); J84.9 Interstitial pulmonary disease, unspecified; Z99.81 Dependence on supplemental oxygen | CPT/HCPCS: 96127; 99212 ==

== ENCOUNTER 2024-08-17 12:47 | Outpatient (AMB) | payer OTHER, SELFPAY ==
--- NOTE | 2024-08-17 13:00 | MHC.OFFVIS ---
Vital Signs 08/17/24 13:08 Height 5 ft 1 in Weight 130 lb 1.164 oz BMI 24.6 BP 128/77 Blood Pressure Location Lt brachial Position Sitting Pulse 105 H Intake Visit Reasons: 4 month follow up Intake Note: Helen presents in the office as a 4 month follow up. CC: She is having problems with her swallowing she feels like she is choking a lot. Cream for the hemorrhoids she needs a new refill because she ran out. She said when she was given the steroid she states she has a fungus type thing on her tongue and in her mouth under the lip. Quality Assurance Director Required: Yes Quality Assurance Director Name: [id number] Allergies No Known Allergies (No Known Allergies*) Allergy (Verified 07/04/25 20:01) Medication List - Last Reconciled 08/17/24 by Marya Galvan MD acetaminophen (Tylenol Extra Strength) 500 mg PO Q6H PRN azathioprine mg PO compressor, for nebulizer As directed dextromethorphan-guaifenesin 10-100 mg/5 mL 10 mL PO Q6H PRN doxycycline hyclate mg PO DAILY ferrous sulfate 325 mg PO DAILY 90 days levalbuterol HCl 1.25 mg (3 mL) inhalation Q4H PRN lidocaine 5% (Lidoderm) 1 patch topical DAILY PRN MDD remove after 12 hours foifjllsj-uhzfebbehopdhj-hyte 3-2.5 % (7 gram) 1 appl RI BID PRN metronidazole 0.75% 1 appl topical BEDTIME PRN mycophenolate mofetil 500 mg PO BID nebulizers As directed nystatin 400,000 units buccal QID PRN omeprazole 10 mg PO DAILY@0630 Oxygen Home Use As directed prednisone 60 mg (3 x 20 mg) PO DAILY trazodone 50 mg PO BEDTIME PRN zinc oxide 12% (Corona Protect (zinc oxide)) 1 appl topical TID HPI HPI 4 month follow up: Details: GI clinic visit for this 48-year-old Amharic-speaking female for follow-up of abdominal pain and diarrhea. ? ??CHRONIC ILLNESSES:?GERD, moshe-metrorrhagia TODAY'S VISIT [facility] [place] [employer],? Pt reports she is having problems with her swallowing she feels like she is choking a lot. Cream for the hemorrhoids she needs a new refill because she ran out. She said when she was given the steroid she states she has a fungus type thing on her tongue and in her mouth under the lip. Hospitalized a month ago with breathing problems - discharged on Home oxygen 2-3 L/M by nasal cannula Constipation is a lot better - not having abd pain Has a BM daily PAST VISIT: I am getting better Leavng for [place] tomorrow for 2 weeks since Dad is ill with throat and cardiac problems Pt complains of worsening constipation - has a BM 2-3 times a day with passage of hard stools - like balls Denies abdominal pain. She was taking a powder (Ndiaye) which was working in the past and is no longer working. Complains of fatigue, feeling cold and excessive sleepiness CC: Pt reports that they have remained stable since their last visit, however; they have not seen any significant improvements in their sx. Pt is still reporting chronic constipation concerns and would like to discuss this today. Has a cold. Lab results reviewed I am feeling better Abd pain and constipation has improved. Has a BM daily Pt noted to have tachycardia - denies feeling dizzy or lightheaded States has not been drinking fluids - advised to drink 5-6 glasses of sports drink and water daily EGD and colon results were reviewed with the patient Constipation is better - able to have a BM every 2 days Taking Ndiaye daily which is helping with constipation Doing OK - still has constipation and has a BM every 3 days Abd pain is controlled and continues to have rectal bleeding every time she has a BM Pt complains of abdominal pain started last wed and wednesday Pain stopped on Wednesday BM was very hard and pain improved when she started having diarrhea Recurrent pain and Wed and started having diarrhea. hemorrhoids start popping out when she strains to have a BM. Also notes intermittent bleeding. Lab tests reviewed - IBD serologies positive for Crohn's disease and fecal calprotectin was > 500 (pt had Salmonella infection) Appetite is low - hardly eating anything. Did not have labs done since she has been very depressed and not leaving her house. Has been feeling very hot. Abdominal pain and constipation are better. Rectal bleeding is better. Still has some rectal bleeding when she goes to the bathroom - when she has hard stools. Did not get topical treatment for hemorrhoids - pharmacy told her it needed a PA. Has been using OTC hemorrhoidal creams and they have not been helpful Pt advised to start iron pills for anemia and have labs checked in 4 weeks. Labs show chronic anemia - of note pt is status post hysterectomy 3-4 yrs ago. Patient cc: abdominal bloating, constipation and acid reflex on and off is much better with medication. Patient said the pharmacy never gave her the Hemorrhoids ointment. When she does have a BM she does still see some blood as well. She states that she took a picture with the blood in the toilet. ?Unable to have a BM for the past 3 days - she was able to go today Taking a fibre pill and does not think its helping a lot. Using hemorrhoid cream one to two times daily. Taking Miralax once a day. Constipation has been better since her last visit to the ED. Abdominal pain is better and denies diarrhea. Has eliminated certain foods due to the pain. No problems with hemorrhoids since her last ER visit - using HC with Lidocaine cream prn. ? ?I had not had any abdominal pain for 2 weeks until yesterday 11:40 in the am. ? Pain came on suddenly. ? She was at [facility] and did not want to use the rest room. ? Went home and had an accident and pain gradually subsided around 1:30 pm. ? Did not eat any thing in the morning. ? Wt fluctuates - looses 3-5 lbs and then regains it LAB[facility]:?07/21/19 Normal CBC with mild anemia and mildly elevated transaminases. ? 12/14 celiac serologies were negative. ?IMAGING STUDIES 07/24/[address] scan showed: ? 1. There is a continued stable appearance of a of liv mesentery, of ? with nonpathologically enlarged mesenteric lymph nodes. Please note ? differential considerations on prior report. 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 ? 2. No bowel obstruction, free intracranial air abscess is seen. No ? focal bowel wall thickening. No appendicitis or diverticulitis is seen. ? 3. The gallbladder is surgically absent. ? 4. There is diminished, minimal nonspecific free fluid within the right hemipelvis. ? 5. There is mild degenerative disc disease redemonstrated at L4-L5. ?04/20/[address] scan showed: ? 1. Subtle fat stranding of the central mesentery with numerous nonpathologically enlarged lymph node is seen, a liv mesentery appearance. This has a broad differential which includes mesenteric adenitis. Enteritis is a further differential possibility, although no focal bowel wall thickening is presently noted on this examination ? performed without the benefit of oral contrast. It has been described with lymphoma although typically there is a history of lymphoma or evidence of lymphadenopathy elsewhere, not seen on this patient. In ? the absence of symptoms, it is of uncertain etiology or clinical significance. If there is continued clinical concern, a follow-up CT scan could be obtained in 3-6 months. ? 2. No bowel obstruction, free intraperitoneal air or abscess is seen. This no appendicitis or diverticulitis. ? 3. The gallbladder is surgically absent. ? 4. There is a small amount of free fluid within the dependent pelvis. A small right ovarian cyst is suspected. These findings could be more fully evaluated with dedicated pelvic ultrasound, if clinically indicated. ? 5. There is mild degenerative disc disease at L4-L5. ?09/2018 UGI showed: ? IMPRESSION: ? Prominent gastroesophageal reflux with slow clearing to the level of ? the thoracic inlet. Findings consistent with antral gastritis and duodenitis. Question duodenal bulb ulcer. ?ENDOSCOPIC STUDIES: 05/2023 EGD AND COLON SHOWED: Endoscopy Findings: STOMACH: Moderate diffuse gastritis DUODENUM: Normal - biopsied to check for celiac sprue Colonoscopy Findings: One small polyp removed Moderate to severe diverticulosis seen in the left colon with edematous and erythematous folds Moderate hemorrhoids on retroflexed exam. Plan: Repeat Colonoscopy interval based on path results - in 1-2 years if polyps are adenomatous and due to fair prep in the left colon. Above findings were reviewed with the patient and Gastritis, colon polyps and diverticulosis handouts were given in the discharge area BIOPSIES SHOWED: A. Small bowel, biopsy: Duodenal/small bowel mucosa with preserved villi and no specific change. B. Gastric antrum, biopsy: Chronic gastritis with minimal activity and foveolar hyperplasia; negative for H pylori, granulomas, intestinal metaplasia and dysplasia. C. Gastric body, biopsy: Chronic gastritis with focal gland atrophy; negative for H pylori, granulomas, intestinal metaplasia and dysplasia. D. Terminal ileum, biopsy: Ileal mucosa with no specific change. E. Colon, cecal polyp: Colonic mucosa with focal active colitis; negative for regenerative changes and granulomas (see comment). F. Colon, left, biopsy: Colonic mucosa with mild nonspecific increase in chronic inflammation without activity or regenerative changes; negative for granulomas and dysplasia. G. Colon, left, biopsy: Colonic mucosa with lymphoid aggregates and no specific change; no regenerative changes, granulomas or dysplasia. H. Colon, sigmoid, biopsy: Colonic mucosa with lymphoid aggregates and no specific change; no regenerative changes, granulomas or dysplasia. I. Colon, rectum, biopsy: Colonic mucosa with mild nonspecific increase in chronic inflammation without activity or significant regenerative changes; negative for granulomas and dysplasia. Comment: (E): No adenomatous dysplasia seen on initial levels; additional deeper levels pending; Many of the biopsies show chronic inflammation that may be related to the patient's history of Crohn's disease (? treated); clinical correlation is necessary 11/2018 EGD SHOWED:? ESOPHAGUS: Mild esophagael motility disorder? STOMACH: Hemorrhagic gastritis with prominent gastric folds ? Plan: ? Continue present medications (Omeprazole at 20 mg PO once daily) ? Patient has an appointment on 01/13/19 in the GI Clinic with Marya Galvan M.D ? BIOPSIES SHOWED: ? A. Small bowel, biopsy: Small bowel mucosa with no significant histopathology; no ? villous abnormality identified; no increase in intraepithelial lymphocytes. ? B. Stomach, antrum, biopsy: Moderate chronic, inactive gastritis; Helicobacter pylori organisms seen. ? C. Stomach, folds, biopsy: Moderate chronic, inactive gastritis; no Helicobacter pylori organisms seen. ?04/2019 COLONOSCOPY SHOWED: ? Patchy erythema with a few 2-3 mm aphthoid ulcers in the cecum - random biopsies were obtained from TI, right and left colon. ? Moderate hemorrhoids on retroflexed exam. ? Plan: ? Continue present medications (Omeprazole at 20 mg PO once daily) ? Repeat Colonoscopy interval based on path results in 3-5 years if ? polyps are adenomatous and 10 years if polyps are hyperplastic. ? BIOPSIES SHOWED: ? A. Terminal ileum, biopsies: Terminal ileum mucosa with mildly increased lamina propria chronic inflammation, non-specific; no active inflammation; negative for dysplasia/malignancy. ? B. Colon, right, biopsies: Mild chronic colitis; negative for dysplasia/malignancy. ? C. Colon, left, biopsies: Mild chronic colitis; negative for dysplasia/malignancy [facility] Medical History Crohn's disease of colon ILD (interstitial lung disease) Supplemental oxygen dependent Pneumomediastinum Breast cancer screening by mammogram Overweight (BMI 25.0-29.9) Abnormal CT scan, chest Hemorrhoids with complication Colon cancer screening Generalized abdominal pain Visual impairment Duodenal ulcer GERD (gastroesophageal reflux disease) Obesity (BMI 30-39.9) Menometrorrhagia Seizure in childhood Sclerosing mesenteritis GERD without esophagitis Surgical History History of esophagogastroduodenoscopy (EGD) Hx of colonoscopy Hx of cholecystectomy (~2005) Hx of hysterectomy Hx of section Family History Father Myocardial infarct CVA (cerebral vascular accident) Mother No problems noted. Daughter No problems noted. Son No problems noted. Brother Substance abuse Social History Household Members: None Housing: House Do you presently have visiting nurse or other home services: No Alcohol intake: never Patient Tobacco Use Status: Never used Tobacco Tobacco use type: Cigarette e-Cigarette/Vaping Use: Never Used Second Hand Smoke Exposure: No service: No Current occupational status: employed and unemployed Current occupation: [employer] Cognitive needs: Yes (wheelchair) Hearing needs: No Vision needs: No Review of Systems Const All systems reviewed & are unremarkable except as noted in HPI and below Physical Exam Vital Signs: Last Vital Signs Pulse 105 H 08/17/24 13:08 BP 128/77 08/17/24 13:08 BMI result Body Mass Index 24.6 Const General: no acute distress and ill appearing chronically Nutritional Appearance: average body habitus Orientation/consciousness: patient oriented x3 Limitations: language barrier, wheelchair and other limitations (On home O2 ) HEENT Head: Yes normal to inspection Ears: hearing grossly normal bilaterally Eyes Sclerae: sclerae normal Pupils: Equal, round and reactive pupils present Neck Neck: Yes normal visual inspection Chest Chest palpation & inspection: normal inspection of the chest Resp Effort & Inspection: normal respiratory effort Auscultation: clear to auscultation bilaterally Cardio Palpation: normal PMI Rate: regular rate Rhythm: regular rhythm Heart sounds: S1 normal heart sound present, S2 normal heart sound present and no murmurs GI Palpation (GI): Soft to palpation, nontender and No hepatosplenomegaly present Auscultation: normal bowel sounds Rectal Exam - Female: deferred Skin General skin exam: no rashes or lesions noted Neuro General: patient oriented x3, gait normal and moves all extremities Cranial nerves: Yes Equal, round and reactive pupils present Psych Appearance: grossly normal Mental Status: mental status grossly normal Assessment & Plan Assessment & Plan (1) Chronic constipation: Code(s): K59.09 - Other constipation Category: Medical (2) GERD (gastroesophageal reflux disease): Code(s): K21.9 - Gastro-esophageal reflux disease without esophagitis Category: Medical Qualifiers: Esophagitis presence: without esophagitis Qualified Code(s): K21.9 - Gastro-esophageal reflux disease without esophagitis (3) Hemorrhoids with complication: Code(s): K64.8 - Other hemorrhoids Category: Medical (4) Rectal bleeding: Code(s): K62.5 - Hemorrhage of anus and rectum Category: Medical (5) Iron deficiency anemia due to chronic blood loss: Code(s): D50.0 - Iron deficiency anemia secondary to blood loss (chronic) Category: Medical (6) Abdominal pain: Code(s): R10.9 - Unspecified abdominal pain Category: Medical (7) Crohn's disease of colon: Code(s): K50.10 - Crohn's disease of large intestine without complications Category: Medical Plan 48 year old Amharic-speaking female?with GERD, moshe-metrorrhagia followed in GI clinic for post prandial generalized abdominal pain associated with diarrhea for the past 5 years when she moved from [place].? Labs revealed elevated sed rate of 71, a normal CRP of 0.27. Celiac serologies showed normal TTG IgA, mild increase in antigliadin antibody IgA 27. Iron studies revealed a ferritin of 32. Her symptoms are likely a combination of diarrhea pre-dominent IBS and sclerosing mesenteritis. UGI showed possible ulcer in duodenal bulb. EGD showed Mild esophageal motility disorder, Hemorrhagic gastritis with prominent gastric folds, no ulcer noted in the duodenum. Gastric biopsies were positive for H pylori. Patient was treated with triple therapy for H pylori gastritis(clarithromycin, amoxicillin for 10 days) and advised to resume dicyclomine for IBS. Patient had acute onset of abdominal pain with diarrhea and stool studies are positive for Salmonella infection which resolved without treatment. 05/17 Colonoscopy showed Patchy erythema with a few 2-3 mm aphthoid ulcers. Random biopsies were obtained from TI, right and left colon which showed mild chronic colitis- likely related to Salmonella infection; negative for dysplasia/malignancy. Repeat screening colonoscopy was advised in 5 years for follow-up of colitis (due 04/2025). Abdominal pain improved. Patient complained of constipation with intermittent hemorrhoids.? She was advised to increase water and fluid intake and use senna 2 to 3 times a week p.r.n. Repeat labs to follow up on mild anemia and elevated LFTs in past - repeat LFTs were normal. Pt advised to start iron pills for anemia and have labs checked in 4 weeks. 12/17/22 Pt advised to schedule an EGD and a colonoscopy (recurrent SIOBHAN anemia and FU on colitis seen on past colon). Pt to return to the lab for lab tests ordered by Dr Garcia. 04/09/23 - labs showed resolution of anemia and elevated Ig A of 864 - pt referred to Heme Onc for evaluation 06/16/23 Pt seen by Oncology for IgA gammopathy: This is 47-year-old woman with recently diagnosed Crohn's disease and multitude of gastrointestinal problems was noted to have elevated IgA level along with hypoalbuminemia and elevated total protein. She does not have significant anemia or renal dysfunction. No hypercalcemia. Serum protein electrophoresis was consistent with chronic inflammatory pattern. Serum immunofixation showed elevation all immunoglobulin levels, no monoclonal protein detected. Her ESR is elevated, elevated IgA and hyper paraproteinemia can be seen in inflammatory conditions such as Crohn's disease as well. No further hematological workup is necessary. For her facial rash/?rosacea, she was advised to follow-up with her PCP. 05/2023 EGD and colon was performed and findings as noted above 07/01/23 Pt advised to start mesalamine for Crohn's colitis Labs in 4 weeks 02/03/24 Pt complains of worsening constipation - has a BM 2-3 times a day with passage of hard stools - like balls. Denies abdominal pain. She was taking a powder which was working in the past and is no longer working. Pt advised FU labs and fecal calprotectin. Start Linzess 145 mcg daily 04/20/24 Constipation improved 08/17/24 [place]ized [place] [facility] [place] - discharged on Home oxygen 2-3 L/M by nasal cannula Constipation is a lot better - not having abd pain Continue Nystatin for oral candidiasis. Follow-up appointment in 6 months Medications: Changed From nystatin 400,000 units buccal QID PRN Rash To nystatin 400,000 units (4 mL) buccal QID PRN 250 mL 1RF Rash 10 days Coding Level of Care Code Est Pt Level 4 (84311) Diagnoses Chronic constipation K59.09 Gastroesophageal reflux disease without esophagitis K21.9 Esophagitis presence: without esophagitis Hemorrhoids with complication K64.8 Rectal bleeding K62.5 Iron deficiency anemia due to chronic blood loss D50.0 Abdominal pain R10.9 Crohn's disease of colon K50.10 Time Spent (min) 23
[2024-08-17 13:08] VITALS: BP 128/77; PULSE 105; BMI 24.6
== END 2024-08-17 13:59 | disposition home or self-care (01) ==
PROVIDERS: PCP Internal Medicine; Visit Provider Internal Medicine Gastroenterology
DX: K59.09 Other constipation (principal); K21.9 Gastro-esophageal reflux disease without esophagitis; K64.8 Other hemorrhoids; K62.5 Hemorrhage of anus and rectum; D50.0 Iron deficiency anemia secondary to blood loss (chronic); R10.9 Unspecified abdominal pain; K50.10 Crohn's disease of large intestine without complications
CPT/HCPCS: 99499

== ENCOUNTER → 2024-08-17 12:47 | Outpatient (BNVA) | payer OTHER, SELFPAY | PROVIDERS: PCP Internal Medicine; Visit Provider Internal Medicine Gastroenterology ==

== ENCOUNTER 2024-09-04 14:23 | Outpatient (AMB) | payer OTHER, SELFPAY ==
[2024-09-04 14:26] VITALS: BP 110/70; PULSE 108; O2SAT 98; BMI 24.4
--- NOTE | 2024-09-04 14:26 | A.OFFVIS_ITS ---
Vital Signs 09/04/24 14:26 Height 5 ft 1 in Weight 128 lb 15.527 oz BMI 24.4 BP 110/70 Blood Pressure Location Rt brachial Position Sitting Pulse 108 H Pulse Source Doppler Pulse Oximetry (%) 98 Oxygen Delivery Method Nasal Cannula Oxygen Flow Rate 3 Intake Visit Reasons: Dyspnea Overnight Houseperson Required: Yes Overnight Houseperson Name: Ava Styles Alan Allergies No Known Allergies [No Known Allergies*] Allergy (Verified 09/04/24 14:32) HPI HPI Dyspnea: Details: 48-year-old lady, nonsmoker, w now followed for interstitial lung disease with recent exacerbation requiring admission in high-dose glucocorticoid course, tapered down to prednisone 60 mg daily and completed 3 months of therapy with has returned to baseline respiratory status requiring 2-3 L of supplemental oxygen. [facility] Medical History (Updated 08/17/24 @ 13:36 by Marya Galvan MD) Supplemental oxygen dependent Pneumomediastinum ILD (interstitial lung disease) Breast cancer screening by mammogram Overweight (BMI 25.0-29.9) Abnormal CT scan, chest Hemorrhoids with complication Colon cancer screening Generalized abdominal pain Visual impairment Duodenal ulcer GERD (gastroesophageal reflux disease) Obesity (BMI 30-39.9) Menometrorrhagia Seizure in childhood Sclerosing mesenteritis GERD without esophagitis Surgical History History of esophagogastroduodenoscopy (EGD) Hx of colonoscopy Hx of cholecystectomy (~2005) Hx of hysterectomy Hx of section Family History Father No problems noted. Mother No problems noted. Daughter No problems noted. Son No problems noted. Brother Substance abuse Social History Household Members: Children Housing: House Do you presently have visiting nurse or other home services: No Alcohol intake: never Patient Tobacco Use Status: Never used Tobacco e-Cigarette/Vaping Use: Never Used Second Hand Smoke Exposure: No service: No Current occupational status: employed and unemployed Current occupation: [employer] Cognitive needs: No Hearing needs: No Vision needs: No Review of Systems Const Denies daytime sleepiness, Denies excessive sweating, Reports fatigue, Denies fever(s), Reports lethargy, Denies malaise, Denies night sweats, Denies snoring and Denies weight loss Eyes Denies blurry vision and Denies itchy eyes ENT Denies nasal congestion, Denies post nasal drip, Denies sinus pain, Denies sinus pressure and Denies other ( Thrush) Card Denies chest pain, Denies pedal edema, Denies dyspnea, Denies orthopnea and Denies paroxysmal nocturnal dyspnea Resp Denies cough, Denies hemoptysis, Denies excessive phlegm production, Denies dyspnea, Denies snoring and Denies wheezing GI Denies abdominal pain and Denies heartburn Musc Denies myalgias, Denies arthralgias and Denies joint swelling Skin/Breast Denies rash Neuro Denies memory loss and Denies seizure-like activity Psych Denies abnormal sleep pattern, Denies anxiety and Denies memory loss Endo Denies excessive sweating, Reports fatigue and Denies heat intolerance Remy/Lymph Denies easy bruising Aller/Immun Denies itchy eyes, Denies seasonal rhinorrhea and Denies wheezing Physical Exam Vital Signs: Last Vital Signs Pulse 108 H 09/04/24 14:26 BP 110/70 09/04/24 14:26 Pulse Ox 98 09/04/24 14:26 Oxygen Delivery Method Nasal Cannula 09/04/24 14:26 Oxygen Flow Rate 3 09/04/24 14:26 BMI result Body Mass Index 24.4 Const General: no acute distress and alert Nutritional Appearance: not obese Orientation/consciousness: Other orientation findings ( oriented) HEENT Head: Yes atraumatic Eyes General: appearance normal, both eyes and all related structures Sclerae: sclerae normal EOM: EOMs intact bilaterally Neck Neck: Yes supple Lymphatic: no lymphadenopathy noted Resp Effort & Inspection: normal respiratory effort and no use of accessory muscles Auscultation: clear to auscultation bilaterally Cardio Rate: regular rate Rhythm: regular rhythm Heart sounds: no gallops, no murmurs and no rubs Skin General skin exam: other ( warm) Extrem General: No clubbing, No cyanosis and No edema Assessment & Plan Assessment & Plan (1) ILD (interstitial lung disease): Code(s): J84.9 - Interstitial pulmonary disease, unspecified Category: Medical Plan: Significantly improvement after pulse of high-dose Solu-Medrol, titrated to prednisone 60 mg daily with returned to baseline respiratory status. Will continue to titrate off prednisone as tolerated with planned being going down by 10 mg every week. (2) Supplemental oxygen dependent: Code(s): Z99.81 - Dependence on supplemental oxygen Category: Medical Plan: Continue supplemental oxygen to maintain O2 saturation above 89%. Medications: New prednisone Take 5 pills daily for 7 days, then go down by 1 pill every 7 days 10 mg PO DIRECTED 105 tabs 0RF Discontinued prednisone Take prednisone 60 mg (3x20mg) by mouth daily with food further taper as per pulmonology Discontinued Reason: Doctor's Order 60 mg (3 x 20 mg) PO DAILY 180 tabs 0RF Coding Level of Care Code Est Pt Level 4 (48874) Diagnoses ILD (interstitial lung disease) J84.9 Supplemental oxygen dependent Z99.81
== END 2024-09-04 15:00 | disposition home or self-care (01) ==
LOC: HO.HPS 14:23
PROVIDERS: PCP Internal Medicine; Visit Provider Internal Medicine Pulmonary Disease
DX: J84.9 Interstitial pulmonary disease, unspecified (principal); Z99.81 Dependence on supplemental oxygen
CPT/HCPCS: 99214

== ENCOUNTER → 2024-09-04 14:23 | Outpatient (BNVA) | payer OTHER, SELFPAY | PROVIDERS: PCP Internal Medicine; Visit Provider Internal Medicine Pulmonary Disease | DX: J84.9 Interstitial pulmonary disease, unspecified (principal); Z99.81 Dependence on supplemental oxygen | CPT/HCPCS: 99212 ==

== ENCOUNTER 2024-09-13 11:12 | Outpatient (AMB) | payer OTHER, SELFPAY ==
--- NOTE | 2024-09-13 11:35 | A.OFFPC_ITS ---
Vital Signs 09/13/24 11:36 Height 5 ft 1 in Weight 127 lb 6 oz BMI 24.1 BP 120/78 Blood Pressure Location Lt brachial Position Sitting Pulse 120 H Pulse Source Pulse Oximeter Temp 97.3 F Temp Source Temporal Artery Scan Pulse Oximetry (%) 94 Oxygen Delivery Method Nasal Cannula Intake Visit Reasons: annual exam Intake Note: Patient is here today for a physical. Diabetes Clinical Manager Required: Yes Diabetes Clinical Manager Language: Warp Dyeing Tender Name: Vanessa ([id number]) Information Interpreted: non-clinical & clinical Sweetbread Trimmer: Not Required per policy Accompanied by: Self / Same As Patient Allergies No Known Allergies [No Known Allergies*] Allergy (Verified 09/13/24 11:36) Medication List - Last Reconciled 09/13/24 by Nolberto Garcia MD acetaminophen (Tylenol Extra Strength) 500 mg PO Q6H PRN azathioprine mg PO compressor, for nebulizer As directed dextromethorphan-guaifenesin 10-100 mg/5 mL 10 mL PO Q6H PRN doxycycline hyclate for the rosacea ferrous sulfate 325 mg PO DAILY 90 days levalbuterol HCl 1.25 mg (3 mL) inhalation Q4H PRN lidocaine 5% (Lidoderm) 1 patch topical DAILY PRN MDD remove after 12 hours oeptkouxp-tefyinwzodvwjr-mnpp 3-2.5 % (7 gram) 1 appl DC BID PRN metronidazole 0.75% 1 appl topical BEDTIME PRN mycophenolate mofetil 500 mg PO BID nebulizers As directed nystatin 400,000 units (4 mL) buccal QID PRN 10 days omeprazole 10 mg PO DAILY@0630 Oxygen Home Use As directed prednisone 10 mg PO DIRECTED trazodone 50 mg PO BEDTIME PRN zinc oxide 12% (Corona Protect (zinc oxide)) 1 appl topical TID Tobacco use date assessed: 09/13/24 Dental Screening Dental Screen Date: 07/27/24 HPI annual exam HPI Details On 2 L [place] Anderson [id number] Interpret asking for multivitamins- ophthamology 04/2025 [facility] Medical History (Updated 09/13/24 @ 12:33 by Nolberto Garcia MD) Supplemental oxygen dependent Pneumomediastinum ILD (interstitial lung disease) Breast cancer screening by mammogram Overweight (BMI 25.0-29.9) Abnormal CT scan, chest Hemorrhoids with complication Colon cancer screening Generalized abdominal pain Visual impairment Duodenal ulcer GERD (gastroesophageal reflux disease) Obesity (BMI 30-39.9) Menometrorrhagia Seizure in childhood Sclerosing mesenteritis GERD without esophagitis Surgical History History of esophagogastroduodenoscopy (EGD) Hx of colonoscopy Hx of cholecystectomy (~2005) Hx of hysterectomy Hx of section Family History (Updated 09/13/24 @ 12:27 by Nolberto Garcia MD) Father Myocardial infarct CVA (cerebral vascular accident) Mother No problems noted. Daughter No problems noted. Son No problems noted. Brother Substance abuse Social History Household Members: Children Housing: House Do you presently have visiting nurse or other home services: No Alcohol intake: never Patient Tobacco Use Status: Never used Tobacco e-Cigarette/Vaping Use: Never Used Second Hand Smoke Exposure: No service: No Current occupational status: employed and unemployed Current occupation: [employer] Cognitive needs: No Hearing needs: No Vision needs: No Questionnaire PHQ-9 Over the last 2 weeks, how often have you been bothered by any of the following problems? 1. Little interest or pleasure in doing things: nearly every day 2. Feeling down, depressed, or hopeless: nearly every day 3. Trouble falling or staying asleep, or sleeping too much: more than half the days 4. Feeling tired or having little energy: nearly every day 5. Poor appetite or overeating: not at all 6. Feeling bad about yourself - or that you are a failure or have let yourself or your family down: more than half the days 7. Trouble concentrating on things, such as reading the newspaper or watching television: not at all 8. Moving or speaking so slowly that other people could have noticed. Or the opposite - being so fidgety or restless that you have been moving around a lot more than usual: not at all 9. Thoughts that you would be better off or of hurting yourself in some way: not at all Total score: 13 Depression Screening Interpretation: Positive Depression Screening Done: Yes Source: Developed by Drs. Jerod Grover, Heather B.Georgi Dawn and colleagues, with an educational cristal from [employer]. Thrive Questionnaire Date Thrive assessed: 09/13/24 I am a: Patient What is your living situation today?: I have a steady place to live Within the past 12 months, did the food you bought not last and you didn't have the money to get more?: Sometimes True Within the past 12 months, did you worry whether your food would run out before you got money to buy more?: Sometimes True Do you have trouble paying for medicines?: Yes Do you have trouble getting transportation to medical appointments?: No Do you have trouble paying your heating and electricity bill?: Yes Do you have trouble taking care of your child, family member or friend?: No Do you have trouble with day-to-day activities such as bathing, preparing meals, shopping, managing finances, etc.?: Yes Are you currently unemployed and looking for a job?: Yes Are you interested in more education?: Yes Please select the resources that you would like help with: Food and Paying for medicine Currently or been in a relationship where the following occur: No concerns reported THRIVE Score: 3 AUDIT C Alcohol Use Questionnaire (AUDIT-C) 1. How often do you have a drink containing alcohol?: Never Total Score: 0 YSABEL-7 AMB Questionnaire YSABEL-7 Date YSABEL - 7 assessed: 09/13/24 Feeling nervous, anxious, or on edge: 1 = Several days Not being able to stop or control worryin = More than half the days Worrying too much about different things: 3 = Nearly every day Trouble relaxin = Nearly every day Being so restless that it is hard to sit still: 2 = More than half the days Becoming easily annoyed or irritable: 2 = More than half the days Feeling afraid as if something awful might happen: 1 = Several days Total YSABEL-7 score (0-4 normal; 5-9 mild; 10-14 moderate; 15-21 severe): 14 Source: Developed by Drs. Jerod Grover, Georgi Perkins and colleagues, with an educational cristal from [employer]. Review of Systems Const Denies poor appetite and Denies weakness Eyes Denies no additional complaints ENT Reports Normal hearing present, Denies dizziness, Denies nasal congestion, Denies tinnitus and Denies sore throat Card Denies chest pain, Denies syncope, Denies rapid heart rate and Denies dyspnea Resp Denies cough and Denies dyspnea GI Denies change in stool character, Reports constipation, Denies diarrhea, Denies nausea and Denies vomiting Denies urinary frequency, Denies difficulty voiding and Denies dysuria Neuro Reports Normal hearing present, Denies confusion, Denies dizziness, Denies syncope and Denies weakness Psych Denies confusion Physical exam (Primary Care) Vital Signs: Last Vital Signs Temp 97.3 F 09/13/24 11:36 Pulse 120 H 09/13/24 11:36 BP 120/78 09/13/24 11:36 Pulse Ox 94 09/13/24 11:36 Oxygen Delivery Method Nasal Cannula 09/13/24 11:36 BMI result Body Mass Index 24.1 Tobacco/Smoking Status: Tobacco use Status Tobacco use date assessed 09/13/24 09/13/24 11:47 Patient Tobacco Use Status Never used Tobacco 09/13/24 11:47 e-Cigarette/Vaping Use Never Used 09/13/24 11:47 PHQ-9: PHQ-9 Score PHQ-9: Total score 13 09/13/24 12:19 Depression Screening Interpretation: Positive Thrive Assessment: Date of Thrive Assessment Date Thrive assessed 09/13/24 09/13/24 11:47 Currently or been in a relationship where the following occur: No concerns reported Const General: No confusion Orientation/consciousness: No confusion HENMT Other: multiple whit discharge orally Head: Yes normocephalic Ears: external ears normal and TM's normal bilaterally Face and sinus: Yes normal facial exam Mouth: moist mucous membranes Throat: Yes tonsils normal Eyes Conjunctivae: conjunctivae normal Pupils: Equal, round and reactive pupils present and Pupil accommodation reflex normal Direct Ophthalmoscopy: normal light reflex Neck Neck: No lymphadenopathy Thyroid: Thyroid normal Chest Chest palpation & inspection: normal inspection of the chest Resp Effort & Inspection: normal respiratory effort and no audible wheezes Auscultation: clear to auscultation bilaterally, no crackles, no wheezes and lung sounds not diminished Cardio Rate: regular rate Rhythm: regular rhythm Peripheral pulses: radial pulses present and dorsalis pedis present GI Palpation (GI): no masses Auscultation: normal bowel sounds and normoactive bowel sounds Rectal Exam - Female: deferred Skin General skin exam: no rashes or lesions noted Rashes: no rashes Neuro General: No confusion Cranial nerves: Yes Equal, round and reactive pupils present and Yes Normal hearing present Cognition (Neuro): normal cognition Gait exam (Neuro): Normal gait present Motor exam (neuro): 5/5 motor strength present throughout Deep tendon reflexes (DTR's): Right brachioradialis reflex intensity grade: 2+, Left brachioradialis reflex intensity grade: 2+, Right patellar reflex intensity grade: 2+ and Left patellar reflex intensity grade: 2+ Extrem General: No edema Office Procedures Flu Questionnaire Does the patient have a severe egg allergy?: No Does the patient have severe life threatening allergies?: No Does the patient have a fever or illness today?: No Has the patient ever had Guillain-Stryker Syndrome?: No Has the patient ever had any past reaction to a flu shot?: No Immunizations Fluarix Triv 9525-6360 (PF) 45 mcg (15 mcg x 3)/0.5 mL IM syringe Performing Provider: Nolberto Garcia MD [facility] [place] [facility] Administered by: Venus Burrell CMA on 09/13/24 12:49 Dose Route Admin Location Dispensed Lot Number Expiration Date NDC [employer]etr[employer] Manager 0.5 mL IM Left Deltoid 0.5 mL [id number] 12/25/24 [id number] [employer] VIS Given Date VIS Provided VIS Publication Date 09/13/24 Single Vaccine 21 Eligibility Eligibility Date Funding Source Not [facility] Eligible 09/13/24 Private Coding Level of Care Code Est Pt Prev Care 40-64y([id number]) Diagnoses Annual physical exam Z00.00 ILD (interstitial lung disease) J84.9 Pressure injury of buttock, stage 1, unspecified laterality L89.301 Pressure injury location: buttock Pressure injury stage: stage 1 Laterality: unspecified laterality Gastroesophageal reflux disease without esophagitis K21.9 Esophagitis presence: without esophagitis Generalized anxiety disorder F41.1 Oral candidiasis B37.0 Assessment & Plan Assessment & Plan (1) Annual physical exam: Code(s): Z00.00 - Encounter for general adult medical examination without abnormal findings Category: Medical Plan: Avoid the foods that causes that usually spicy foods, tomato products, juices, coffee, soda and foods that your sensitive to. After eating do not lie down, allow 3-4 hours before in lie down. And keep the head of bed above 30 degrees to avoid the acid from going up. (2) ILD (interstitial lung disease): Code(s): J84.9 - Interstitial pulmonary disease, unspecified Category: Medical Plan: Continue to follow-up with Pulmonary on oxygen placed on mycophenolate and steroids (3) Pressure sore: Code(s): L89.90 - Pressure ulcer of unspecified site, unspecified stage Category: Medical Qualifiers: Pressure injury location: buttock Pressure injury stage: stage 1 Laterality: unspecified laterality Qualified Code(s): L89.301 - Pressure ulcer of unspecified buttock, stage 1 Plan: Discussed about taking care of the pressure ulcers (4) GERD (gastroesophageal reflux disease): Code(s): K21.9 - Gastro-esophageal reflux disease without esophagitis Category: Medical Qualifiers: Esophagitis presence: without esophagitis Qualified Code(s): K21.9 - Gastro-esophageal reflux disease without esophagitis Plan: Avoid the foods that causes that usually spicy foods, tomato products, juices, coffee, soda and foods that your sensitive to. After eating do not lie down, allow 3-4 hours before in lie down. And keep the head of bed above 30 degrees to avoid the acid from going up. (5) Generalized anxiety disorder: Code(s): F41.1 - Generalized anxiety disorder Category: Medical Plan: Continue to follow-up (6) Oral candidiasis: Code(s): B37.0 - Candidal stomatitis Category: Medical Plan History of Present Illness The patient is a 48-year-old female presenting for a physical examination and management of multiple chronic conditions including Gastroesophageal Reflux Disease (GERD), Crohn's Disease, pulmonary nodules, and Interstitial Lung Disease (ILD). She has been receiving treatment involving steroids and supplemental oxygen for her ILD, which has shown improvement. A hospitalization in June addressed shortness of breath and resulted in treatment for pneumonia; imaging at that time revealed significant pulmonary findings, while a echocardiogram was normal. Blood work performed in June reflected normal findings. The patient has a documented history by multiple specialists, including pulmonary, gastroenterology where her last colonoscopy was completed in May 2023, and rheumatology departments. Notable issues include persistent dysphagia and hemorrhoids. Previously reported pressure ulcers from limited mobility have resolved. Recently, she reported an oral fungal infection, for which previous treatment with nystatin was ineffective, necessitating ongoing antifungal treatment. Family history includes significant cardiovascular disease, with her father having had recent myocardial infarction and cerebrovascular accident, resulting in his . These detailed findings facilitate understanding of potential future risks for the patient and guide ongoing disease monitoring and prevention. Health Maintenance - Mammogram last completed in September 2023 - Colonoscopy last completed in May 2023 - Upper GI series and duodenal bulb examination with findings unspecified - Regular follow-up with pulmonary specialists for interstitial lung disease management - Consideration of dietary supplements for reported weakness and nutritional intake concerns - Continual monitoring of ILD with focus on titrating off steroid therapy Social History - Employment and specific lifestyle factors were not discussed - The presence of family history includes cardiovascular disease, notably in her father - Concerns regarding dietary intake noted with self-reported multivitamin use for weakness - Recent oral fungal infection impacting comfort and ability to eat - Family members have a history of cardiovascular concerns Review of Systems - Respiratory: Reports shortness of breath and use of supplemental oxygen - Cardiovascular: Denies chest pain, history of heart issues affecting heart rate due to lung problem - ENT: Reports oral candidiasis; denies current swallowing pain - Gastrointestinal: Reports issues with dysphagia and hemorrhoids - Dermatologic: Denies current pressure sores - Musculoskeletal: Reports generalized musculoskeletal pain and weakness Physical Exam General: Cooperative, healthy appearing, comfortable, no acute distress and well developed Orientation: Patient oriented x3 Limitations: No limitations Head: Normal to inspection Ears: Hearing grossly normal bilaterally Nose: Normal external nose present Face and sinus: Normal facial exam Eyes: Appearance normal, both eyes and all related structures Neck: Normal visual inspection and Yes full ROM Respiratory: Normal respiratory effort and able to speak in complete sentences. Clear to auscultation bilaterally Cardiovascular: Regular rate and rhythm. Normal S1 and S2 GI: Normal to inspection. Soft to palpation and nontender Skin: No rashes or lesions noted Neuro: Patient oriented x3 Extremities: Normal to inspection Results - Labs: Normal blood count and creatinine of 0.67 from June - Imaging: CT chest in June indicated no pulmonary embolism. Reports ground glass density, interlobular septal thickening, bronchiectasis, and multiple cavitary nodules with mediastinal adenopathy Plan The patient's extensive multi-condition management includes tapering off steroid therapy for Interstitial Lung Disease and consideration of mycophenolate mofetil, supported by the pulmonary team's monitoring. Her cardiac care is managed through upcoming echocardiograms due to the elevated cardiac workload secondary to ILD. An active antifungal treatment plan is necessary for oral candidiasis, given the prior ineffective nystatin regimen. Her GERD management may require titration of Omeprazole, with regular gastroenterology oversight. Nutritional guidance and multivitamins can address concerns about weakness and dietary insufficiency. Cardiology and rheumatology support will continue to manage systemic symptoms, and educational readiness against recurrence of resolved pressure sores is moderate. Psychological support might be beneficial, reflecting the load of ongoing chronic condition management. Patient was informed and verbally consented to the use of an ambient scribe for clinic note documentation during this visit. Discussion Notes I discussed at length the management strategies for the comprehensive nature of her conditions, emphasizing the critical role of tapering steroid use for Interstitial Lung Disease while monitoring possible complications or exacerbations. Reassessed oral candidiasis treatment options including the initiation of a different antifungal after the initial nystatin inefficacy. I reinforced the importance of consistent gastroenterological follow-up to manage GERD effectively. The conversation included thorough considerations for diet and supplementation concerning her expressed feelings of weakness. Broader systems support involving cardiology for ILD-related cardiac stress was agreed upon, alongside licensing specialist follow-ups and guidance about handling resolved pressure sores. The patient fully understands the outlined management strategies, possible risks, and gain from lifestyle modifications and has been provided with guidance on next steps regarding health maintenance and preventative care. Patient Instructions - Continue current medications and follow up with the licensing specialist - Start new antifungal medication as prescribed for oral candidiasis - Monitor GERD symptoms and follow dietary guidelines provided - Follow up with cardiology and special equipment technician as discussed - Report any new or worsening symptoms immediately - Maintain an exercise and nutrition program as advised - Schedule routine preventive exams and discuss updates with all specialists involved Orders: Orders Complete Blood Count Auto Diff Today J84.9 - Interstitial pulmonary disease, unspecified Comprehensive Met. Panel Today J84.9 - Interstitial pulmonary disease, unspecified Thyroid Stimulating Hormone Today J84.9 - Interstitial pulmonary disease, unspecified Vitamin B12 and Folate Today J84.9 - Interstitial pulmonary disease, unspecified Lipid Panel Today E78.00 - Pure hypercholesterolemia, unspecified, J84.9 - Interstitial pulmonary disease, unspecified Influenza 9818-2933 Immunization Today Z23 - Encounter for immunization Free T4 (Free Thyroxine) Today J84.9 - Interstitial pulmonary disease, unspecified Vitamin D 25-OH Total Today J84.9 - Interstitial pulmonary disease, unspecified UA CC w/rflx Micro + Cult Today J84.9 - Interstitial pulmonary disease, unspecified, R30.0 - Dysuria Medications: New fluconazole (Diflucan) take 200 mg first day then once a day orally daily; 8 tabs 0RF B37.0 - Candidal stomatitis
[2024-09-13 11:36] VITALS: BP 120/78; PULSE 120; TEMP 36.3; O2SAT 94; BMI 24.1
== END 2024-09-13 12:53 | disposition home or self-care (01) ==
LOC: HO.HMCH 11:13
PROVIDERS: PCP Internal Medicine; Visit Provider Internal Medicine
DX: Z00.00 Encounter for general adult medical examination without abnormal findings (principal); J84.9 Interstitial pulmonary disease, unspecified; L89.301 Pressure ulcer of unspecified buttock, stage 1; K21.9 Gastro-esophageal reflux disease without esophagitis; F41.1 Generalized anxiety disorder; B37.0 Candidal stomatitis; Z23 Encounter for immunization

== ENCOUNTER → 2024-09-13 11:12 | Outpatient (BNVA) | payer OTHER, SELFPAY | PROVIDERS: PCP Internal Medicine; Visit Provider Internal Medicine | DX: Z00.00 Encounter for general adult medical examination without abnormal findings (principal); Z23 Encounter for immunization; J84.9 Interstitial pulmonary disease, unspecified; L89.301 Pressure ulcer of unspecified buttock, stage 1; K21.9 Gastro-esophageal reflux disease without esophagitis; F41.1 Generalized anxiety disorder; B37.0 Candidal stomatitis | CPT/HCPCS: 90471; 90656; 99396 ==

== ENCOUNTER 2024-09-22 12:04 | Inpatient (IN) | payer OTHER, SELFPAY ==
--- NOTE | ~2024-09-22 | XR_ITS ---
EXAMINATION: XR CHEST CLINICAL INFORMATION: coughing, Chest pain COMPARISON: July 14, 2024. TECHNIQUE: Frontal view of the chest was obtained. FINDINGS: Pulmonary reticular nodular pattern. Patchy opacity and haziness in the left lower hemithorax and right perihilar region. Low lung volume. No pneumothorax. No pleural effusion. Heart silhouette size is normal and to the left of the left hemithorax likely related to patient's positioning. S-shaped curvature of the mid thoracic spine. Vascular clips right upper quadrant abdomen likely cholecystectomy. XR/XR chest 1V IMPRESSION: Acute on chronic airspace disease involving mostly the left lung. Electronically signed by: All Cornejo MD 09/22/2024 02:12 PM EDT
--- NOTE | ~2024-09-22 | XR_ITS ---
EXAMINATION: XR LUMBOSACRAL SPINE CLINICAL INFORMATION: lower back pain. fracture? COMPARISON: August 01, 2019. TECHNIQUE: Three views of the lumbosacral spine. FINDINGS: Superior endplate compression deformity representing 30% volume loss at L2. Sclerotic superior compression deformity representing 20% volume loss at L3. Superior endplate compression deformity representing 20% volume loss at L5. Multiple likely osteoporotic compression deformities in the lower thoracic spine. Levoconvex rotoscoliosis versus positioning. Vascular clips right upper quadrant abdomen. XR/XR lumbar spine 2-3V IMPRESSION: Multiple compression fracture deformities throughout the thoracic and lumbar spine the possibility of acute to subacute fracture at L3 should be considered in the correct clinical settings. Electronically signed by: All Cornejo MD 09/22/2024 02:14 PM EDT
[2024-09-22 12:13] VITALS: BP 140/90; PULSE 84; O2SAT 94
[2024-09-22 12:34] VITALS: BP 123/78; PULSE 99; RESP 20; TEMP 36.8; O2SAT 87; BMI 25.7
--- NOTE | 2024-09-22 12:39 | ECG_ITS ---
Test Reason : back pain Blood Pressure : */* mmHG Vent. Rate : 94 BPM Atrial Rate : 94 BPM P-R Int : 120 ms QRS Dur : 72 ms QT Int : 318 ms P-R-T Axes : 35 -14 -12 degrees QTcB Int : 397 ms Poor data quality Normal sinus rhythm Biatrial enlargement Left ventricular hypertrophy ( R in aVL , Rashi product ) Nonspecific T wave abnormality Abnormal ECG When compared with ECG of 14-Jul-2024 15:43, Nonspecific T wave abnormality now evident in Anterior leads Referred By: Quique Flores Electronically Signed By: SEAN STARR MD
--- NOTE | 2024-09-22 13:33 | ED_ITS ---
HPI - General Adult General Chief complaint: Back Pain/Injury Stated complaint: back pain Time Seen by Provider: 09/22/24 12:39 Source: patient Mode of arrival: ambulatory Limitations: no limitations History of Present Illness ED Provider: Quique Flores HPI narrative: 48 yold female with pmh of [facility] oxygen dependent 2 liters, saicita, chronis disease, pneumonia presents to the ED for multiple complaints. patient states last week she received a flu shot and ever since than has had severe coughing and two days ago she coughed so hard that she had sudden right sided lower back pain. Patient states unable to walk. Patient denies any uriany/bowel inconcinecne. Patient states she exacerbated her right lowre back from coughing. Patient secondary complaint is left sided chest tightness. Patient denies any SOB, fever, chills, or coughing. patient denies any leg swelling, calf pain, or pleurisy. Related Data Home Medications ?Medication ?Instructions ?Recorded ?Confirmed metronidazole 0.75 % topical cream 1 appl topical BEDTIME PRN redness 05/09/24 09/22/24 mycophenolate mofetil 250 mg 500 mg PO BID 08/17/24 09/22/24 capsule doxycycline hyclate 20 mg tablet 20 mg PO BID 09/13/24 09/22/24 Previous Rx's ?Medication ?Instructions ?Recorded ferrous sulfate 325 mg (65 mg 325 mg PO DAILY 90 days #90 tabs 01/22/24 iron) tablet Oxygen Home Use #1 ea 03/08/24 levalbuterol HCl 1.25 mg/3 mL 1.25 mg (3 mL) inhalation Q4H PRN 05/12/24 solution for nebulization Shortness Of Breath/Wheezing #150 mL nebulizers #1 ea 05/12/24 compressor, for nebulizer #1 ea 05/15/24 omeprazole 10 mg capsule,delayed 10 mg PO DAILY@0630 #90 caps 07/27/24 release cyclobenzaprine 10 mg tablet 10 mg PO BID PRN Muscle Spasm #14 09/24/24 tabs levofloxacin 750 mg tablet 750 mg PO DAILY #5 tabs 09/24/24 oxycodone 5 mg tablet 5 mg PO Q6H PRN pain #28 tabs 09/24/24 prednisone 10 mg tablet See Taper PO DIRECTED #70 tabs 09/24/24 sulfamethoxazole 400 1 tab PO DAILY #1 tab 09/24/24 mg-trimethoprim 80 mg tablet Allergies Allergy/AdvReac Type Severity Reaction Status Date / Time No Known Allergies Allergy Verified 09/22/24 12:36 [No Known Allergies*] Review of Systems 2 Review of Systems: Right lower back pain, coughing, and left chest tightness. Yes all other systems are reviewed and are negative [facility] Past Medical History Medical History Supplemental oxygen dependent Pneumomediastinum ILD (interstitial lung disease) Breast cancer screening by mammogram Overweight (BMI 25.0-29.9) Abnormal CT scan, chest Hemorrhoids with complication Colon cancer screening Generalized abdominal pain Visual impairment Duodenal ulcer GERD (gastroesophageal reflux disease) Obesity (BMI 30-39.9) Menometrorrhagia Seizure in childhood Sclerosing mesenteritis GERD without esophagitis Surgical History History of esophagogastroduodenoscopy (EGD) Hx of colonoscopy Hx of cholecystectomy (~2005) Hx of hysterectomy Hx of section Family History Family History Father Myocardial infarct CVA (cerebral vascular accident) Mother No problems noted. Daughter No problems noted. Son No problems noted. Brother Substance abuse Social History Social History Household Members: Family Housing: Apartment Do you presently have visiting nurse or other home services: No Alcohol intake: never Patient Tobacco Use Status: Never used Tobacco e-Cigarette/Vaping Use: Never Used Second Hand Smoke Exposure: No service: No Current occupational status: employed and unemployed Current occupation: [employer] Cognitive needs: No Hearing needs: No Vision needs: No Physical Exam ED Vital Signs: Vital Signs - 24 hr 09/22/24 12:34 09/22/24 14:05 09/22/24 16:38 Temperature 98.3 F 98.2 F Pulse Rate 99 99 84 Respiratory Rate 20 18 16 Blood Pressure 123/78 122/80 110/89 Pulse Oximetry 87 L 92 97 Oxygen Delivery Method Nasal Cannula Nasal Cannula Nasal Cannula Oxygen Flow Rate 2.5 2 BMI result Body Mass Index 25.7 Const General: cooperative, healthy appearing, comfortable, no acute distress, well developed, alert, awake and Physically active Orientation/consciousness: patient oriented x3 [facility] Head: Yes normal to inspection, Yes No palpable skull fracture present, Yes normocephalic and Yes atraumatic Throat: Yes posterior oropharynx normal, Yes tonsils normal and Yes uvula midline Eyes General: appearance normal, both eyes and all related structures Neck Neck: Yes normal visual inspection, Yes full ROM, Yes no lymphadenopathy, Yes no meningeal signs, Yes trachea midline, Yes supple, No anterior neck swelling and No tender Chest Other: positive for left sided chest wall tendenress Chest palpation & inspection: normal inspection of the chest and normal palpation of entire chest wall Resp Effort & Inspection: normal respiratory effort and able to speak in complete sentences Auscultation: clear to auscultation bilaterally Cardio Jugular venous distension: no JVD Heart sounds: S1 normal heart sound present and S2 normal heart sound present GI Inspection: Yes normal to inspection and No abdominal wall ecchymosis Palpation (GI): Soft to palpation, not firm, nontender, no guarding and not rigid General: Yes no CVA tenderness Back/Spine/Pelvis Back: no CVA tenderness and back tenderness (right lower lumbar back pain) Skin General skin exam: no rashes or lesions noted, elasticity normal and turgor normal Neuro General: patient oriented x3, gait normal, tone normal, moves all extremities, Normal light touch and pain sensation, no meningeal signs, no focal motor deficits, CN's II-XI intact bilaterally and normal sensation to monofilament Extrem General: Yes normal to inspection and Yes full ROM Psych Appearance: grossly normal, well kempt and not disheveled Medications Administered Discontinued Medications Generic Name Dose Route Start Last Admin Trade Name Freq PRN Reason Stop Dose Admin Acetaminophen 650 mg 09/22/24 17:50 09/23/24 08:43 Acetaminophen 325 Mg Tablet PO 650 mg Q6H PRN Administration Pain, Mild 1-3,fever,headache Ceftriaxone Sodium 1 gm 09/22/24 17:19 09/22/24 18:39 Ceftriaxone Sodium 1 Gm Vial IVPUSH 09/22/24 17:20 1 gm ONCE ONE Administration Cyclobenzaprine HCl 10 mg 09/22/24 13:24 09/22/24 13:47 Cyclobenzaprine Hcl 10 Mg Tablet PO 09/22/24 13:25 10 mg ONCE ONE Administration Cyclobenzaprine HCl 10 mg 09/23/24 14:34 09/24/24 05:33 Cyclobenzaprine Hcl 10 Mg Tablet PO 10 mg TID PRN Administration Muscle Spasm Docusate Sodium 100 mg 09/22/24 21:00 09/24/24 09:00 Docusate Sodium 100 Mg Capsule PO 100 mg BID NIKOLAI Administration Enoxaparin Sodium 40 mg 09/22/24 18:00 09/23/24 17:18 Enoxaparin Sodium 40 Mg/0.4 Ml Syringe SUBCUT 40 mg Q24H NIKOLAI Administration Ferrous Sulfate 324 mg 09/24/24 09:00 09/24/24 09:00 Ferrous Sulfate 324 Mg Tablet.Dr PO 324 mg DAILY NIKOLAI Administration Hydromorphone HCl 1 mg 09/22/24 16:30 09/22/24 16:36 Hydromorphone Hcl 1 Mg/Ml Syringe IVPUSH 09/22/24 16:31 1 mg ONCE ONE Administration Protocol Azithromycin 500 mg/ Sodium 250 mls @ 125 mls/hr 09/22/24 17:19 09/22/24 20:58 Chloride IV 09/22/24 19:18 Infused ONCE ONE Infusion Levofloxacin 750 mg in 150 mls @ 100 mls/hr 09/22/24 18:15 09/23/24 19:12 Levaquin IV Infused Q24H NIKOLAI Infusion Sodium Chloride 2,041.17 mls @ 2,041.17 mls/hr 09/22/24 19:09 09/22/24 20:56 Ns 30 ml/kg infuse over 1 hr (2041.17 ml) 09/22/24 20:08 Infused IV Infusion .Q1H STA Lactated Ringer's 1,000 mls @ 50 mls/hr 09/22/24 21:30 09/24/24 09:59 Lr IVCONT Infused .Q20H NIKOLAI Infusion Ketorolac Tromethamine 30 mg 09/22/24 14:13 09/22/24 14:18 Ketorolac Tromethamine 30 Mg/Ml Vial IVPUSH 09/22/24 14:14 30 mg ONCE ONE Administration Methylprednisolone Sodium Succinate 125 mg 09/22/24 14:13 09/22/24 14:21 Methylprednisolone Sod Succ 125 Mg/2 Ml Vial IVPUSH 09/22/24 14:14 125 mg ONCE ONE Administration Omeprazole 20 mg 09/24/24 06:30 09/24/24 05:31 Omeprazole 20 Mg Capsule. PO 20 mg DAILY@0630 [facility] Administration Oxycodone HCl 5 mg 09/22/24 15:11 09/22/24 15:23 Oxycodone Hcl Immed Release 5 Mg Tablet PO 09/22/24 15:12 5 mg ONCE ONE Administration Oxycodone HCl 5 mg 09/22/24 17:55 09/23/24 20:06 Oxycodone Hcl Immed Release 5 Mg Tablet PO 5 mg Q6H PRN Administration Pain, Moderate(Pain Scale 4-6) Prednisone 60 mg 09/23/24 09:00 09/24/24 09:00 Prednisone 20 Mg Tablet PO 60 mg DAILY NIKOLAI Administration Sodium Chloride 3 ml 09/23/24 00:00 09/24/24 07:07 0.9 % Sodium Chloride Flush 3 Ml Syringe IVFLUSH Not Given QSHIFT NIKOLAI Trimethoprim/Sulfamethoxazole 1 tab 09/23/24 09:00 09/24/24 09:00 Sulfamethox/Trimeth 400/80 Tablet PO 1 tab DAILY NIKOLAI Administration Medical Decision Making Medical Decision Making MDM Narrative: 48 yold female with pmh of ILD and sciatica prsents to the ED for low back pain after coughing so hard. Patient she coughed so hard she thnks she exacerbated her sciatica and can't walk due to the pain. Patient albe to move lower extremitmies. Patient denies any urinary/ bowel incontinence or saddle anesthesia. Patient has secondary complaint is left-sided chest tightness without any shortness of breath. Patient states cough ever since receiving flu shot. Patient states area after she gets the flu shots to get the symptoms of cough. We will do EKG labs due to patient states left-sided chest tightness. We will give Toradol and cyclobenzaprine for back pain. Patient states he states steroids daily with given Solu-Medrol IV. Although no wheezing will give patient albuterol bronchodilators to help with coughing. O2 sat 87% on triage but patient on 2 L which is baseline now a month tonight 97% 5:55pm: Patient has intractable back pain. No relief after Dilaudid, Toradol, oxycodone, and cyclobenzaprine. Chest x-ray shows acute on chronic opacity. With patient having new cough and 1 episode of hypoxia at 87% on 2 L of no normal oxygen. Patient presented to hospitalist for admission for pneumonia and intractable back pain due to vertebral compression fractures. Negative for any signs of any neuro deficits. Patient has complete range of motion of lower extremity. Patient did not have any urinary/bowel incontinence. Patient is started on IV antibiotics. Patient did not want any albuterol inhaler. Case presented to [facility] Differential Diagnosis Differential Diagnoses: The differential diagnosis associated with the presentation includes (Pneumonia, sciatica) Admission/Observation Consideration of admission/observation: Escalation of care including admission/observation considered Consult Healthcare Provider Management of the patient was discussed with: Hospitalist (ROSIE Riddle) Lab Data MDM Lab Attestation statement: I reviewed the patient's lab results. 09/22/24 13:59 09/22/24 13:59 Labs: Lab Results 09/22/24 09/22/24 09/22/24 Range/Units 12:56 13:59 15:40 WBC 12.4 H (4.8-10.8) X10*3/uL RBC 5.27 D (4.20-5.50) X10*6/uL Hgb 15.2 D (12.0-16.0) g/dl Hct 45.8 D (37.0-47.0) % MCV 86.9 (80.0-98.0) fL MCH 28.8 (27.0-33.0) pg MCHC 33.2 (31.0-35.0) g/dl RDW 14.2 (11.0-16.0) % Plt Count 287 (160-400) X10*3/uL MPV 9.0 L (9.4-12.3) fL Immature Gran % (Auto) 3.4 H (0.0-0.4) % Neut % (Auto) 74.2 H (45-73) % Lymph % (Auto) 16.5 L (20-40) % [place] % (Auto) 5.5 (2-11) % Eos % (Auto) 0.1 (0-4) % Baso % (Auto) 0.3 (0-2) % Lymph # (Auto) 2.1 (1.2-4.9) X10*3/uL [place] # (Auto) 0.7 (0.1-1.2) X10*3/uL Eos # (Auto) 0.0 (0.0-0.4) X10*3/uL Baso # (Auto) 0.0 (0.0-0.2) X10*3/uL Abs Immat Gran (auto) 0.42 H (0.00-0.03) X10*3/uL Absolute Neuts (auto) 9.2 H (2.0-8.3) x10*3/uL Absolute Nucleated RBC 0.000 (0.0-0.012) X10*3/uL Nucleated RBC % (auto) 0.0 (0.0-0.2) /100WBC PT 10.4 L (10.9-12.4) SEC INR 0.9 (0.9-1.1) APTT 26.1 (26.0-36.8) SEC Sodium 140 (135-145) mmol/L Potassium 4.0 (3.3-5.1) mmol/L Chloride 103 (96-108) mmol/L Carbon Dioxide 28 (22-29) mmol/L Anion Gap 13 (12-20) BUN 13 (9-16) mg/dL Creatinine 0.61 (0.5-1.4) mg/dL Estim Creat Clear Calc 108.0 Estimated GFR > 60 Random Glucose 82 (60-115) mg/dL Calcium 9.8 D (8.4-10.2) mg/dL Total Bilirubin 0.3 (0.0-1.0) mg/dL AST 42 H (5-31) U/L ALT 85 H (0-31) U/L Alkaline Phosphatase 134 H (39-117) U/L Lactate Dehydrogenase 247 H (122-220) U/L Troponin I High Sens 5.4 D 7.5 (<3.5-17.0) ng/L B-Natriuretic Peptide 40 (<100) pg/mL Total Protein 8.4 H (6.5-8.0) g/dL Albumin 3.5 (3.5-5.0) g/dL Influenza Type A (PCR) NEGATIVE (Negative) Influenza Type B (PCR) NEGATIVE (Negative) RSV RNA Qual (PCR) NEGATIVE (Negative) SARS-CoV-2 RNA (RT-PCR) NEGATIVE (Negative) Independent Interpretation I performed an independent interpretation of an: EKG (Negative STEMI) Radiology Impression Discussion of test interpretation with radiology: I have reviewed the radiologist's reading. Independent Historian Clinical information obtained from an independent historian. History obtained from or confirmed by: Other (Patient) Discharge Plan Discharge Clinical Impression: Vertebral compression fracture, Pneumonia Patient Disposition: Admitted As Inpatient Interventions: Admission Worksheet (ED) Last Done: 09/22/24 19:07 Discharge Date/Time: 09/22/24 19:47
[2024-09-22 13:41] LABS: Influenza A PCR NEGATIVE (Negative); Influenza B PCR NEGATIVE (Negative); Resp Syncy Virus RNA Qual PCR NEGATIVE (Negative); SARS COV2 PCR INHOUSE NEGATIVE (Negative)
[2024-09-22] MEDS: Cyclobenzaprine HCl 10 MG TABLET PO (13:47)
[2024-09-22 14:05] VITALS: BP 122/80; PULSE 99; RESP 18; O2SAT 92
[2024-09-22 14:05] LABS: MANUAL DIFF FLAG NO
[2024-09-22 14:07] LABS: Basophils Percent Auto 0.3 % (0-2); Eosinophils Percent Auto 0.1 % (0-4); Hematocrit 45.8 % (37.0-47.0); Hemoglobin 15.2 g/dl (12.0-16.0); Imm Gran Abs Auto 0.42 X10*3/uL (0.00-0.03); Imm Gran Pct Auto 3.4 % (0.0-0.4); Lymphocytes Absolute Auto 2.1 X10*3/uL (1.2-4.9); Lymphocytes Percent Auto 16.5 % (20-40); Mean Corpuscular HGB Conc 33.2 g/dl (31.0-35.0); Mean Corpuscular Hemoglobin 28.8 pg (27.0-33.0); Mean Corpuscular Volume 86.9 fL (80.0-98.0); Monocytes Absolute Auto 0.7 X10*3/uL (0.1-1.2); Monocytes Percent Auto 5.5 % (2-11); Neutrophils Absolute Auto 9.2 x10*3/uL (2.0-8.3); Neutrophils Percent Auto 74.2 % (45-73); Platelet Count 287 X10*3/uL (160-400); Red Blood Count 5.27 X10*6/uL (4.20-5.50); Red Cell Distribution Width 14.2 % (11.0-16.0); White Blood Count 12.4 X10*3/uL (4.8-10.8)
[2024-09-22 14:12] LABS: INTERNATIONAL NORM RATIO 0.9 (0.9-1.1); Prothrombin Time 10.4 SEC (10.9-12.4)
[2024-09-22 14:15] LABS: Partial Thromboplastin Time 26.1 SEC (26.0-36.8)
[2024-09-22] MEDS: Ketorolac Tromethamine 30 MG/ML VIAL IVPUSH (14:18)
[2024-09-22] MEDS: methylPREDNISolone Sod Succ 125 MG/2 ML VIAL IVPUSH (14:21)
[2024-09-22 14:25] LABS: Alanine Aminotransferase 85 U/L (0-31); Albumin Level 3.5 g/dL (3.5-5.0); Alkaline Phosphatase 134 U/L (39-117); Anion Gap 13 (12-20); Aspartate Amino Transferase 42 U/L (5-31); B Type Natriuretic Peptide 40 pg/mL (<100); Bilirubin Total 0.3 mg/dL (0.0-1.0); Blood Urea Nitrogen 13 mg/dL (9-16); Calcium 9.8 mg/dL (8.4-10.2); Carbon Dioxide 28 mmol/L (22-29); Chloride 103 mmol/L (96-108); Estimated Glomerular Filt Rate > 60; Glucose Random 82 mg/dL (60-115); Sodium 140 mmol/L (135-145); Total Protein 8.4 g/dL (6.5-8.0)
[2024-09-22 14:29] LABS: Troponin-I High Sensitivity 5.4 ng/L (<3.5-17.0)
[2024-09-22] MEDS: oxyCODONE HCl Immed Release 5 MG TABLET PO (15:23)
[2024-09-22 16:04] LABS: Troponin-I High Sensitivity 7.5 ng/L (<3.5-17.0)
[2024-09-22] MEDS: HYDROmorphone HCl 1 MG/ML SYRINGE IVPUSH (16:36)
[2024-09-22 16:38] VITALS: BP 110/89; PULSE 84; RESP 16; TEMP 36.8; O2SAT 97
--- NOTE | 2024-09-22 18:06 | PM.IMHP ---
History of Present Illness Date of Service: 09/22/24 <ROSIE Rodriguez - Last Filed: 09/22/24 18:21> Attending physician on admission: Donna Tejada <ROSIE Rodriguez - Last Filed: 09/22/24 18:21> Chief Complaint: back pain, cough <ROSIE Rodriguez - Last Filed: 09/22/24 18:21> This is a 48-year-old female with a history of Crohn's disease, interstitial lung disease on 2 L of supplemental oxygen and chronic prednisone who presents to the emergency department with cough and back pain. One week ago the patient received the flu vaccine and since that time she has reported a cough. Cough is productive of dark phlegm. She denies any associated fever, chills, shortness of breath. Her cough has been so severe that she began having back pain. Yesterday she heard a pop and began having increased severity in her lower back pain. Today the pain was too difficult to manage so she presented to the emergency department. She was initially documented to have an oxygen saturation of 87% on 2 L, her oxygen improved to 97% on 2 L. Chest x-ray showed acute on chronic lung disease. Lab work significant for leukocytosis of 12.4. She received IV ceftriaxone and azithromycin. For her back pain an x-ray was obtained which showed multiple compression fracture deformities throughout the thoracic and lumbar spine with probable acute compression fracture at L3. She received multiple doses of medication for pain control but continued to have difficulty moving/ambulating and therefore the decision was made to admit her to the hospital for further management. <ROSIE Rodriguez - Last Filed: 09/22/24 18:21> Review of Systems Review of Systems: Yes all other systems are reviewed and are negative <ROSIE Rodriguez Last Filed: 09/22/24 18:21> Constitutional: Constitutional: Denies chills and Denies fever(s) <ROSIE Rodriguez Last Filed: 09/22/24 18:21> Cardiovascular: Cardiovascular: Denies chest pain and Denies palpitations <ROSIE Rodriguez Last Filed: 09/22/24 18:21> Respiratory: Respiratory: Reports cough <ROSIE Rodriguez Last Filed: 09/22/24 18:21> Endocrine: Endocrine: Denies palpitations <ROSIE Rodriguez - Last Filed: 09/22/24 18:21> [facility] Medical History: Medical History Supplemental oxygen dependent Pneumomediastinum ILD (interstitial lung disease) Breast cancer screening by mammogram Overweight (BMI 25.0-29.9) Abnormal CT scan, chest Hemorrhoids with complication Colon cancer screening Generalized abdominal pain Visual impairment Duodenal ulcer GERD (gastroesophageal reflux disease) Obesity (BMI 30-39.9) Menometrorrhagia Seizure in childhood Sclerosing mesenteritis GERD without esophagitis <ROSIE Rodriguez - Last Filed: 09/22/24 18:21> Family History: Family History Father Myocardial infarct CVA (cerebral vascular accident) Mother No problems noted. Daughter No problems noted. Son No problems noted. Brother Substance abuse <ROSIE Rodriguez - Last Filed: 09/22/24 18:21> Surgical History: Surgical History History of esophagogastroduodenoscopy (EGD) Hx of colonoscopy Hx of cholecystectomy (~2005) Hx of hysterectomy Hx of section <ROSIE Rodriguez - Last Filed: 09/22/24 18:21> Social History: Social History Household Members: Children Housing: House Do you presently have visiting nurse or other home services: No Alcohol intake: never Patient Tobacco Use Status: Never used Tobacco Smoked in Last 30 Days: No e-Cigarette/Vaping Use: Never Used Second Hand Smoke Exposure: No Use of substances other than those prescribed or required for medical reasons: No Advance Directives: No Advance Directives Information Provided: Yes Do you have a plan to hurt others: No Plan service: No Current occupational status: employed and unemployed Current occupation: [employer] Cognitive needs: No Hearing needs: No Vision needs: No <ROSIE Rodriguez - Last Filed: 09/22/24 18:21> Meds Allergies/Adverse reactions: Allergies Allergy/AdvReac Type Severity Reaction Status Date / Time No Known Allergies Allergy Verified 09/22/24 12:36 [No Known Allergies*] <ROSIE Rodriguez - Last Filed: 09/22/24 18:21> Active Medications: Current Medications Acetaminophen (Acetaminophen 325 Mg Tablet) 650 mg PO Q6H PRN PRN Reason: Pain, Mild 1-3,fever,headache Calcium Carbonate (Calcium Carbonate 750 Mg Tab.Chew) 750 mg PO Q4H PRN PRN Reason: Heartburn Docusate Sodium (Docusate Sodium 100 Mg Capsule) 100 mg PO BID NIKOLAI Enoxaparin Sodium (Enoxaparin Sodium 40 Mg/0.4 Ml Syringe) 40 mg SUBCUT Q24H NIKOLAI Azithromycin 500 mg/ Sodium (Chloride) 250 mls @ 125 mls/hr IV ONCE ONE Stop: 09/22/24 19:18 Melatonin (Melatonin 3 Mg Tablet) 6 mg PO BEDTIME PRN PRN Reason: Insomnia Morphine Sulfate (Morphine Sulfate 4 Mg/Ml Cartridge) 2 mg IVPUSH Q4H PRN; Protocol PRN Reason: Pain, Severe (Pain Scale 7-10) Oxycodone HCl (Oxycodone Hcl Immed Release 5 Mg Tablet) 5 mg PO Q6H PRN PRN Reason: Pain, Moderate(Pain Scale 4-6) Polyethylene Glycol (Polyethylene Glycol 3350 17 Gm Powd.Pack) 17 gm PO DAILY PRN PRN Reason: Constipation Sodium Chloride (0.9 % Sodium Chloride Flush 3 Ml Syringe) 3 ml IVFLUSH QSHIFT NIKOLAI <ROSIE Rodriguez - Last Filed: 09/22/24 18:21> Home medications: Home Medications ?Medication ?Instructions ?Recorded ?Confirmed ?Last Taken ?Type [id number]-eubs vera 1 appl HI BID PRN Pain 04/07/22 09/13/24 Unknown History 3 %-2.5 % (7 gram) rectal kit metronidazole 0.75 % topical cream 1 appl topical BEDTIME PRN redness 05/09/24 09/13/24 05/07/24 History azathioprine 50 mg tablet 200 mg PO DAILY 08/17/24 09/13/24 Unknown History mycophenolate mofetil 250 mg 500 mg PO BID 08/17/24 09/13/24 Unknown History capsule doxycycline hyclate 20 mg tablet mg PO DAILY 09/13/24 09/13/24 Unknown History <ROSIE Rodriguez - Last Filed: 09/22/24 18:21> Physical Exam Vital Signs and Narrative: Vital Signs: Last Vital Signs Temp 98.2 F 09/22/24 16:38 Pulse 84 09/22/24 16:38 Resp 16 09/22/24 16:38 BP 110/89 09/22/24 16:38 Pulse Ox 97 09/22/24 16:38 O2 Del Method Nasal Cannula 09/22/24 16:38 O2 Flow Rate 2 09/22/24 16:38 Oxygen Flow Rate 2 09/22/24 12:34 BMI result Body Mass Index 25.7 <ROSIE Rodriguez Last Filed: 09/22/24 18:21> Const: General: alert and awake <ROSIE Rodriguez - Last Filed: 09/22/24 18:21> Nutritional Appearance: average body habitus <ROSIE Rodriguez Last Filed: 09/22/24 18:21> Orientation/consciousness: patient oriented x3 <ROSIE Rodriguez - Last Filed: 09/22/24 18:21> Resp: Other: dry crackles b/l <ROSIE Rodriguez - Last Filed: 09/22/24 18:21> Effort & Inspection: normal respiratory effort, able to speak in complete sentences, no respiratory distress and no use of accessory muscles <ROSIE Rodriguez - Last Filed: 09/22/24 18:21> Cardio: Rate: regular rate <ROSIE Rodriguez - Last Filed: 09/22/24 18:21> Neuro: Other: Grossly nonfocal, able to move all 4 extremities spontaneously. Able to lift bilateral legs against gravity. Sensation intact bilaterally <ROSIE Rodriguez Last Filed: 09/22/24 18:21> General: patient oriented x3, moves all extremities and CN's II-XI intact bilaterally <ROSIE Rodriguez Last Filed: 09/22/24 18:21> Extrem: General: Yes no pedal edema <ROSIE Rodriguez - Last Filed: 09/22/24 18:21> Results Labs CBC and Chem 7: 09/22/24 13:59 09/22/24 13:59 <ROSIE Rodriguez - Last Filed: 09/22/24 18:21> Labs: Laboratory Results - last 24 hr 09/22/24 09/22/24 12:56 13:59 MCV 86.9 MCH 28.8 MCHC 33.2 RDW 14.2 Plt Count 287 MPV 9.0 L Immature Gran % (Auto) 3.4 H Neut % (Auto) 74.2 H Lymph % (Auto) 16.5 L Lincoln % (Auto) 5.5 Eos % (Auto) 0.1 Baso % (Auto) 0.3 Lymph # (Auto) 2.1 [place] # (Auto) 0.7 Eos # (Auto) 0.0 Baso # (Auto) 0.0 Abs Immat Gran (auto) 0.42 H Absolute Neuts (auto) 9.2 H Absolute Nucleated RBC 0.000 Nucleated RBC % (auto) 0.0 PT 10.4 L INR 0.9 APTT 26.1 Anion Gap 13 Estim Creat Clear Calc 108.0 Estimated GFR > 60 Random Glucose 82 Calcium 9.8 D Total Bilirubin 0.3 AST 42 H ALT 85 H Alkaline Phosphatase 134 H B-Natriuretic Peptide 40 Total Protein 8.4 H Albumin 3.5 Influenza Type A (PCR) NEGATIVE Influenza Type B (PCR) NEGATIVE RSV RNA Qual (PCR) NEGATIVE SARS-CoV-2 RNA (RT-PCR) NEGATIVE <ROSIE Rodriguez - Last Filed: 09/22/24 18:21> Imaging Radiologist's Impressions: Impressions Lumbar Spine X-Ray 09/22/24 13:25 IMPRESSION: Multiple compression fracture deformities throughout the thoracic and lumbar spine the possibility of acute to subacute fracture at L3 should be considered in the correct clinical settings. Electronically signed by: All Cornejo MD 09/22/2024 02:14 PM EDT RP Chest X-Ray 09/22/24 13:35 IMPRESSION: Acute on chronic airspace disease involving mostly the left lung. Electronically signed by: All Cornejo MD 09/22/2024 02:12 PM EDT RP <ROSIE Rodriguez - Last Filed: 09/22/24 18:21> Assessment and Plan (1) Vertebral compression fracture: Status: Acute <ROSIE Rodriguez - Last Filed: 09/22/24 18:21> This is a 48-year-old female with history of Crohn's disease, interstitial lung disease on 2 L of supplemental oxygen, acid reflux presents to the emergency department with one-week history of shortness of breath and sudden onset of back pain found to have exacerbation of interstitial lung disease and probable acute L3 compression fracture Acute exacerbation of ILD tachycardia likely due to pain. Leukocytosis due to chronic steroid use. No evidence of sepsis Continue baseline 2 L of supplemental oxygen IV levofloxacin SS bactrim for prophylaxis increase to prednisone 60 mg daily pulm consult Intractable back pain due to probable acute L3 compression fracture Multiple additional compression fractures noted on imaging In the setting of chronic steroid use Symptomatic management with oral/IV pain medication PT evaluation when medically appropriate Mild transaminitis May be due to recent fluconazole for thrush Trend LFTs DVT prophylaxis/Lovenox Code status-full code med rec pending at time of admission Patient will likely require 2 midnight stay in the hospital for management of intractable back pain requiring IV narcotics, exacerbation of underlying chronic lung disease requiring specialist evaluation in a patient with immune compromise due to chronic steroid use <ROSIE Rodriguez - Last Filed: 09/22/24 18:21> This is a 48-year-old female with history of Crohn's disease, interstitial lung disease on 2 L of supplemental oxygen, acid reflux presents to the emergency department with one-week history of shortness of breath and sudden onset of back pain found to have exacerbation of interstitial lung disease and probable acute L3 compression fracture Acute exacerbation of ILD tachycardia likely due to pain. Leukocytosis due to chronic steroid use. No evidence of sepsis Continue baseline 2 L of supplemental oxygen IV levofloxacin SS bactrim for prophylaxis increase to prednisone 60 mg daily pulm consult Intractable back pain due to probable acute L3 compression fracture Multiple additional compression fractures noted on imaging In the setting of chronic steroid use Symptomatic management with oral/IV pain medication PT evaluation when medically appropriate Mild transaminitis May be due to recent fluconazole for thrush Trend LFTs DVT prophylaxis/Lovenox Code status-full code med rec pending at time of admission Patient will likely require 2 midnight stay in the hospital for management of intractable back pain requiring IV narcotics, exacerbation of underlying chronic lung disease requiring specialist evaluation in a patient with immune compromise due to chronic steroid use Addendum to history and physical by the advanced practice provider, ROSIE Riddle I interviewed and examined the patient. I discussed their presentation and management with the ZHANE. I reviewed the history and physical and agree with the documentation, with the following additions and corrections: Initially leukocytosis attributed to chronic steroid use and tachycardia attributed to hypoxia and pain. However, I feel she meets sepsis criteria as of 18:00 when I reviewed the case with ROSIE Riddle given likely pneumonia. Pt with severe sepsis as per lactate 4.2 @ 18:22 Blood cultures drawn 18:27 Ceftriaxone given 18:39 Will order 30 cc/kg bolus of IV NS Given she is on high doses of chronic prednisone AND mycophenolate, she shoudl be on PCP prophylaxis with TMP/SMX 1 DS tab PO bid. <Donna Tejada MD - Last Filed: 09/22/24 19:11> Quality Stroke Does the patient have a stroke diagnosis?: No <ROSIE Rodriguez - Last Filed: 09/22/24 18:21> VTE Prior VTE?: No <ROSIE Rodriguez - Last Filed: 09/22/24 18:21> VTE Risk Level:: Medical - moderate - high <ROSIE Rodriguez - Last Filed: 09/22/24 18:21> VTE Device Contraindication: N/A - Device Ordered <ROSIE Rodriguez - Last Filed: 09/22/24 18:21> VTE Drug Contraindication: N/A - Med Ordered <ROSIE Rodriguez - Last Filed: 09/22/24 18:21>
[2024-09-22] MEDS: cefTRIAXone sodium 1 GM VIAL IVPUSH (18:39)
[2024-09-22] MEDS: Enoxaparin Sodium 40 MG/0.4 ML SYRINGE SUBCUT (18:39)
[2024-09-22] MEDS: Azithromycin 500 MG in 0.9 % Sodium Chloride 250 ML 125 MG IV (18:40)
[2024-09-22 18:51] LABS: Lactic Acid 4.2 mmol/L (0.5-2.0)
[2024-09-22 19:07] LABS: Lactate Dehydrogenase 247 U/L (122-220)
[2024-09-22 19:16] VITALS: BP 111/60; PULSE 112; RESP 18; TEMP 36.4; O2SAT 91
[2024-09-22] MEDS: 0.9 % Sodium Chloride 2,041.17 ML 2041.17 ML IV (19:23)
[2024-09-22 20:00] VITALS: BP 117/75; PULSE 116; RESP 16; TEMP 36.4; O2SAT 93
[2024-09-22] MEDS: Docusate Sodium 100 MG CAPSULE PO (20:11)
--- NOTE | 2024-09-22 20:29 | PHA.MEDREC ---
Pharmacy Consult ? Medication Reconciliation Pharmacy has completed the medication reconciliation. confirmed patient medication list using combination of claim history and list she brought from home. Utilized spanish medical interpreter and family members present at bedside as patient is indonesian speaking. Patient reports she finished 7 day fluconazole treatment yesterday 09/21/24 and is in the middle of prednisone taper. Remainind dosing is: 30 MG DAILY: 09/18/24-09/24/24, 20 MG DAILY: 09/25/24-10/01/24, 10 MG DAILY: 10/02/24-10/08/24. Patient also reports taking cyclobenzaprine but was unable to find any claims history for that. She claims it was given at this facility the last time she was here. Reviewed her visit from June and was unable to verify this so cyclobenzaprine left off of home medication list.
[2024-09-22 20:31] LABS: Reflex Lactate? Lactic Acid Added
[2024-09-22 22:45] LABS: Reflex Lactate? 2 Y
[2024-09-22] MEDS: Lactated Ringers 1,000 ML 50 ML IVCONT (22:50)
[2024-09-23 03:41] VITALS: BP 157/77; PULSE 82; RESP 16; TEMP 36.2; O2SAT 96
[2024-09-23 07:42] LABS: Alanine Aminotransferase 65 U/L (0-31); Albumin Level 2.6 g/dL (3.5-5.0); Alkaline Phosphatase 106 U/L (39-117); Aspartate Amino Transferase 26 U/L (5-31); Bilirubin Direct < 0.2 mg/dL (0.0-0.5); Bilirubin Total 0.2 mg/dL (0.0-1.0)
[2024-09-23 07:49] VITALS: BP 149/85; PULSE 58; RESP 16; TEMP 36.3; O2SAT 99
[2024-09-23 07:55] LABS: Lactic Acid 2.1 mmol/L (0.5-2.0)
[2024-09-23] MEDS: Sulfamethox/Trimeth 400/80 TABLET 1 TAB PO (08:37)
[2024-09-23] MEDS: predniSONE 20 MG TABLET 60 MG PO (08:37)
[2024-09-23] MEDS: Docusate Sodium 100 MG CAPSULE PO ×2 (08:37→20:05)
[2024-09-23] MEDS: Acetaminophen 325 MG TABLET 650 MG PO (08:43)
[2024-09-23 09:28] LABS: Reflex Lactate? Lactic Acid Added
[2024-09-23 11:52] LABS: Reflex Lactate? 2 Y
[2024-09-23 13:17] LABS: ~Lactic Acid-LAB USE ONLY 2.7 mmol/L (0.5-2.0)
--- NOTE | 2024-09-23 14:36 | HO.PM.IMPN ---
Subjective Subjective Date of Service: 09/23/24 Physical Exam Vital Signs: Vital Signs: Last Vital Signs Temp 97.4 F 09/23/24 07:49 Pulse 58 09/23/24 07:49 Resp 16 09/23/24 07:49 BP 149/85 H 09/23/24 07:49 Pulse Ox 99 09/23/24 07:49 O2 Del Method Nasal Cannula 09/23/24 07:49 O2 Flow Rate 2 09/23/24 07:49 Oxygen Flow Rate 2 09/22/24 12:34 BMI result Body Mass Index 25.7 Objective Data Active Medications Acetaminophen (Acetaminophen 325 Mg Tablet) 650 mg PO Q6H PRN PRN Reason: Pain, Mild 1-3,fever,headache Last Admin: 09/23/24 08:43 Dose: 650 mg Documented By: SERGIO Benzocaine (Throat Lozenge, Medicated Lozenge) 1 lozenge MUCOUS MEM Q2H PRN PRN Reason: Sore Throat Calcium Carbonate (Calcium Carbonate 750 Mg Tab.Chew) 750 mg PO Q4H PRN PRN Reason: Heartburn Docusate Sodium (Docusate Sodium 100 Mg Capsule) 100 mg PO BID [facility] Last Admin: 09/23/24 08:37 Dose: 100 mg Documented By: SERGIO Enoxaparin Sodium (Enoxaparin Sodium 40 Mg/0.4 Ml Syringe) 40 mg SUBCUT Q24H [facility] Last Admin: 09/22/24 18:39 Dose: 40 mg Documented By: DAVIS Guaifenesin/Codeine Phosphate (Guaifen/Codeine Sf 200/20/10ml 10 Ml Liquid) 5 ml PO Q6H PRN PRN Reason: Cough Levofloxacin (Levaquin) 750 mg in 150 mls @ 100 mls/hr IV Q24H [facility] Last Admin: 09/22/24 21:02 Dose: Not Given Documented By: SULEMAN Non-Admin Reason: given in ER Lactated Ringer's (Lr) 1,000 mls @ 50 mls/hr IVCONT .Q20H [facility] Last Admin: 09/22/24 22:50 Dose: 50 mls/hr Documented By: SULEMAN Melatonin (Melatonin 3 Mg Tablet) 6 mg PO BEDTIME PRN PRN Reason: Insomnia Morphine Sulfate (Morphine Sulfate 4 Mg/Ml Cartridge) 2 mg IVPUSH Q4H PRN; Protocol PRN Reason: Pain, Severe (Pain Scale 7-10) Oxycodone HCl (Oxycodone Hcl Immed Release 5 Mg Tablet) 5 mg PO Q6H PRN PRN Reason: Pain, Moderate(Pain Scale 4-6) Polyethylene Glycol (Polyethylene Glycol 3350 17 Gm Powd.Pack) 17 gm PO DAILY PRN PRN Reason: Constipation Prednisone (Prednisone 20 Mg Tablet) 60 mg PO DAILY [facility] Last Admin: 09/23/24 08:37 Dose: 60 mg Documented By: SERGIO Sodium Chloride (0.9 % Sodium Chloride Flush 3 Ml Syringe) 3 ml IVFLUSH QSHIFT [facility] Last Admin: 09/23/24 07:24 Dose: Not Given Documented By: SERGIO Non-Admin Reason: IV Running Trimethoprim/Sulfamethoxazole (Sulfamethox/Trimeth 400/80 Tablet) 1 tab PO DAILY [facility] Last Admin: 09/23/24 08:37 Dose: 1 tab Documented By: SERGIO Labs 09/22/24 13:59 09/22/24 13:59 Labs: Laboratory Results - last 24 hr 09/22/24 09/22/24 09/22/24 13:59 18:22 20:40 Lactic Acid 4.2 H* Lactic Acid F/U @ 2Hr 3.0 H* Lactic Acid F/U @ 4Hr Total Bilirubin Direct Bilirubin AST ALT Alkaline Phosphatase Lactate Dehydrogenase 247 H Total Protein Albumin 09/23/24 09/23/24 09/23/24 06:09 09:48 12:15 Lactic Acid 2.1 H* Lactic Acid F/U @ 2Hr 3.0 H* Lactic Acid F/U @ 4Hr 2.7 H* Total Bilirubin 0.2 Direct Bilirubin < 0.2 AST 26 ALT 65 H Alkaline Phosphatase 106 Lactate Dehydrogenase Total Protein 6.0 L D Albumin 2.6 L Microbiology Microbiology Results: Microbiology 09/23/24 Unknown Gram Stain - Final Sputum - Expectorated Assessment and Plan (1) ILD (interstitial lung disease): Status: Acute (2) Back pain: Status: Acute Plan 48-year-old female with history of Crohn's disease, interstitial lung disease on 2 L of supplemental oxygen, acid reflux presented to the emergency department with one-week history of shortness of breath and sudden onset of back pain found to have exacerbation of interstitial lung disease and probable acute L3 compression fracture Intractable back pain due to probable acute L3 compression fracture Multiple additional compression fractures noted on imaging In the setting of chronic steroid use Symptomatic management with oral/IV pain medication, and flexeril PT evaluation when medically appropriate Acute exacerbation of ILD Continue baseline 2 L of supplemental oxygen IV levofloxacin SS bactrim for prophylaxis prednisone 60 mg daily pulm consult Lactic acidosis secondary to lung disease Mild transaminitis May be due to recent fluconazole for thrush Trend LFTs DVT prophylaxis/Lovenox Code status-full code Quality Stroke Does the patient have a stroke diagnosis?: No VTE Prior VTE?: No VTE Risk Level:: Medical - moderate - high VTE Device Contraindication: N/A - Device Ordered VTE Drug Contraindication: N/A - Med Ordered
[2024-09-23] MEDS: Cyclobenzaprine HCl 10 MG TABLET PO (15:12)
[2024-09-23 15:17] VITALS: BP 156/97; PULSE 85; RESP 18; TEMP 36.7; O2SAT 97
[2024-09-23] MEDS: levoFLOXacin/D5W 750 MG/150 ML PIGGYBACK 100 MG IV (17:18)
[2024-09-23] MEDS: Enoxaparin Sodium 40 MG/0.4 ML SYRINGE SUBCUT (17:18)
[2024-09-23] MEDS: Lactated Ringers 1,000 ML 50 ML IVCONT (17:18)
[2024-09-23 19:26] VITALS: BP 121/85; PULSE 109; RESP 19; TEMP 36.7; O2SAT 93
[2024-09-23] MEDS: oxyCODONE HCl Immed Release 5 MG TABLET PO (20:06)
[2024-09-24 03:19] VITALS: BP 126/76; PULSE 83; RESP 20; TEMP 36.3; O2SAT 98
[2024-09-24] MEDS: Omeprazole 20 MG CAPSULE.DR PO (05:31)
[2024-09-24] MEDS: Cyclobenzaprine HCl 10 MG TABLET PO (05:33)
[2024-09-24 07:42] VITALS: BP 149/87; PULSE 65; RESP 14; TEMP 36.3; O2SAT 98
--- NOTE | 2024-09-24 08:58 | MHC.CM.PN ---
Addendum entered by Emili Hollingsworth 09/24/24 09:38: Late charting CM assessment 09/23/24. CM admission note. DX Compression FX. Patient lives with her dtr. 2L O@ continuos [facility] Provider. She is independent with all functional mobility. PCP Dr FLORES. Original Note: Patient is discharged to home today self care. Her dtr will provide transportation home.
[2024-09-24] MEDS: Docusate Sodium 100 MG CAPSULE PO (09:00)
[2024-09-24] MEDS: Sulfamethox/Trimeth 400/80 TABLET 1 TAB PO (09:00)
[2024-09-24] MEDS: predniSONE 20 MG TABLET 60 MG PO (09:00)
[2024-09-24] MEDS: Ferrous Sulfate 324 MG TABLET.DR PO (09:00)
--- NOTE | 2024-09-24 09:31 | PM.DS ---
DS: Providers Provider Date of Service: 09/24/24 Date of admission: 09/22/24 17:50 Date of discharge: 09/24/24 Primary care physician: Nolberto Garcia MD Consults: 09/22/24 18:09 Consult to Pulmonology Routine Consulting Provider: [facility] [place] Pulmonology Services Reason for consultation: exacerbation of ILD Has provider been notified: No DS: Diagnosis Discharge Diagnosis (1) ILD (interstitial lung disease): Status: Acute (2) Back pain: Status: Acute DS: Summary Hospital Course Hospital Course: History and physical as per admitting provider. This is a 48-year-old female with a history of Crohn's disease, interstitial lung disease on 2 L of supplemental oxygen and chronic prednisone who presents to the emergency department with cough and back pain. One week ago the patient received the flu vaccine and since that time she has reported a cough. Cough is productive of dark phlegm. She denies any associated fever, chills, shortness of breath. Her cough has been so severe that she began having back pain. Yesterday she heard a pop and began having increased severity in her lower back pain. Today the pain was too difficult to manage so she presented to the emergency department. She was initially documented to have an oxygen saturation of 87% on 2 L, her oxygen improved to 97% on 2 L. Chest x-ray showed acute on chronic lung disease. Lab work significant for leukocytosis of 12.4. She received IV ceftriaxone and azithromycin. For her back pain an x-ray was obtained which showed multiple compression fracture deformities throughout the thoracic and lumbar spine with probable acute compression fracture at L3. She received multiple doses of medication for pain control but continued to have difficulty moving/ambulating and therefore the decision was made to admit her to the hospital for further management. 48-year-old woman treated for intractable back pain secondary to acute L3 compression fracture. She has a history of multiple compression fractures noted on imaging secondary to chronic steroid use. She was treated symptomatically with oral and IV pain medication as well as Flexeril, heat and cold. She does have some relief and has been able to get up to get to the bathroom. Plan will be to discharge patient home with oxycodone, Flexeril. She can use lidocaine patches, alternate Tylenol and heat and cold. She has a history of interstitial lung disease she had a mild acute exacerbation. She was continued on 2 L of supplemental oxygen. Treated with IV Levaquin and prophylactic Bactrim. Restarted on 60 mg prednisone. Plan will be to taper down from 40 mg every 7 days. Complete 7 day course of Levaquin and total of 3 day course of Bactrim. She should follow up with the welfare specialist outpatient. Lactic acidosis. Secondary to lung disease Mild transaminitis. Recent fluconazole treatment for thrush likely culprit. Time Attestation Discharge Coordination Time (in mins): 42 Quality: Safe Use of Opioids Does Pt have an Active Cancer Diagnosis on the Problem List?: No Quality: Stroke Does the patient have a stroke diagnosis?: No Physical Exam Vital Signs: Vital Signs: Last Vital Signs Temp 97.4 F 09/24/24 07:42 Pulse 65 09/24/24 07:42 Resp 14 09/24/24 07:42 BP 149/87 H 09/24/24 07:42 Pulse Ox 98 09/24/24 07:42 O2 Del Method Room Air 09/24/24 07:42 O2 Flow Rate 2 09/24/24 03:19 Oxygen Flow Rate 2 09/22/24 12:34 BMI result Body Mass Index 25.7 Appearing in no acute distress head is normocephalic atraumatic eyes pupils are PERRLA sclera is anicteric mouth throat mucous membranes are intact and moist neck is supple no lymphadenopathy, no JVD noted lung sounds are clear to auscultation heart regular rate rhythm, clear S1, S2 positive bowel sounds, abdomen is soft, nontender neuro patient is alert x3, no focal deficits DS: Data Data Completed and Pending Labs on day of discharge: Laboratory Results - last 24 hr 09/23/24 09/23/24 09:48 12:15 Lactic Acid F/U @ 2Hr 3.0 H* Lactic Acid F/U @ 4Hr 2.7 H* Preliminary micro results at discharge 09/23/24 Unknown Sputum Culture - Preliminary Sputum - Expectorated Culture in progress. 09/22/24 18:27 Blood Culture - Preliminary Blood - Venous No growth after 24 hours. 09/22/24 18:27 Blood Culture - Preliminary Blood - Venous No growth after 24 hours. Discharge Plan Discharge Anticipated Discharge Date/Time: 09/24/24 09:18 Patient Disposition: Home, Self-Care Discharge Diagnosis: Acute/subacute fracture at L3 with multiple compression fracture deformities Referrals: Po,Nolberto Boykin MD [Primary Care Provider] - 1 Week Discharge Medications: New cyclobenzaprine 10 mg Tablet 10 mg PO BID PRN (Reason: Muscle Spasm) Qty: 14 0RF Rx Instructions: monitor for sedation sulfamethoxazole-trimethoprim 400-80 mg Tablet 1 tab PO DAILY Qty: 1 0RF oxycodone 5 mg Tablet 5 mg PO Q6H PRN (Reason: Pain, Moderate(Pain Scale 4-6)) Qty: 28 0RF Rx Instructions: Partial Fill upon patient request. levofloxacin 750 mg tablet 750 mg PO DAILY Qty: 5 0RF prednisone 10 mg tablet See Taper PO DIRECTED Qty: 70 0RF Taper: Prednisone 40 mg daily for 7 Days and 0 Hour 30 mg daily for 7 Days and 0 Hour 20 mg daily for 7 Days and 0 Hour 10 mg daily for 7 Days and 0 Hour Rx Instructions: see taper instructions Continued ferrous sulfate 325 mg (65 mg iron) tablet 325 mg PO DAILY 90 Days Qty: 90 2RF metronidazole 0.75 % cream 1 appl topical BEDTIME PRN (Reason: redness) levalbuterol HCl 1.25 mg/3 mL Solution For Nebulization 1.25 mg inhalation Q4H PRN (Reason: Shortness Of Breath/Wheezing) Qty: 150 1RF (DME) nebulizers Misc See Rx Instructions .Route Qty: 1 0RF Rx Instructions: As directed (DME) compressor, for nebulizer Device See Rx Instructions .Route Qty: 1 0RF Rx Instructions: As directed (DME) Oxygen Home Use Kit See Rx Instructions .Route Qty: 1 0RF Rx Instructions: As directed mycophenolate mofetil 250 mg capsule 500 mg PO BID doxycycline hyclate 20 mg tablet 20 mg PO BID Rx Instructions: for the rosacea omeprazole 10 mg capsule,delayed release(DR/EC) 10 mg PO DAILY@0630 Qty: 90 0RF Discontinued prednisone 10 mg tablet 30 mg PO DIRECTED Rx Instructions: 30 MG DAILY: 09/18/24-09/24/24 20 MG DAILY: 09/25/24-10/01/24 10 MG DAILY: 10/02/24-10/08/24 Discharge Orders: Discharge Order (Routine); Ordered 09/24/24 Ordered By: Marleen Reese Diet: Advance to usual diet Activity on Discharge: As tolerated Stand Alone Forms: Patient Portal Discharge page Print Language: Indonesian Care Plan Goals: Complete new steroid taper Complete antibiotics as prescribed May alternate with heat and cold for back pain Health Concerns: Acute/subacute fracture at L3 with multiple compression fracture deformities Plan of Treatment: Follow-up with primary care provider as needed Take all medications as prescribed Assessment: See discharge summary
== END 2024-09-24 10:40 | disposition home or self-care (01) | DRG 142 ==
LOC: HO.ED 13:02 → HO.EDOVER 18:05 → HO.S3 19:05
PROVIDERS: Hospitalist; Physician Assistant; Admitting Provider Physician Assistant Medical; Emergency Provider Emergency Medicine; PCP Internal Medicine; Visit Provider Nurse Practitioner Acute Care
DX: J84.9 Interstitial pulmonary disease, unspecified (principal); M48.56XA Collapsed vertebra, not elsewhere classified, lumbar region, initial encounter for fracture; T38.0X5S Adverse effect of glucocorticoids and synthetic analogues, sequela; Z20.822 Contact with and (suspected) exposure to COVID-19; Z79.52 Long term (current) use of systemic steroids; Z79.899 Other long term (current) drug therapy
CPT/HCPCS: 0241U; 36415; 71045; 72100; 80053; 80076; 83605; 83615; 83880; 84484; 85025; 85610; 85730; 87040; 87070; 87077; 87186; 87205; 93005; 99285; J0456; J0696; J1171; J1650; J1885; J1956; J2919; J7120

== ENCOUNTER → 2024-09-22 12:39 | Outpatient (BNV) | payer OTHER, SELFPAY | PROVIDERS: Emergency Provider Emergency Medicine; PCP Internal Medicine; Visit Provider Internal Medicine Cardiovascular Disease | DX: I51.7 Cardiomegaly (principal) | CPT/HCPCS: 93010 ==

== ENCOUNTER → 2024-09-22 13:24 | Outpatient (BNV) | payer OTHER, SELFPAY | PROVIDERS: Emergency Provider Emergency Medicine; PCP Internal Medicine; Visit Provider Radiology Diagnostic Radiology | DX: S32.000A Wedge compression fracture of unspecified lumbar vertebra, initial encounter for closed fracture (principal); S22.000A Wedge compression fracture of unspecified thoracic vertebra, initial encounter for closed fracture; J84.89 Other specified interstitial pulmonary diseases | CPT/HCPCS: 71045; 72100 ==

== ENCOUNTER → 2024-09-22 17:50 | Outpatient (BNV) | payer OTHER, SELFPAY | PROVIDERS: Admitting Provider Physician Assistant Medical; Emergency Provider Emergency Medicine; PCP Internal Medicine; Visit Provider Physician Assistant Medical | DX: M48.50XA Collapsed vertebra, not elsewhere classified, site unspecified, initial encounter for fracture (principal) | CPT/HCPCS: 99223; 99232 ==

== ENCOUNTER 2024-10-16 15:11 | Outpatient (AMB) | payer OTHER, SELFPAY ==
--- NOTE | 2024-10-16 15:12 | A.OFFPC_ITS ---
Intake Visit Reasons: ED f/u [facility] [place] 09/23 Auxiliary Equipment Tender Required: Yes Auxiliary Equipment Tender Language: Trinidadian Information Interpreted: non-clinical & clinical Environmental Analyst: Not Required per policy Accompanied by: Self / Same As Patient Allergies No Known Allergies [No Known Allergies*] Allergy (Verified 10/16/24 15:53) Medication List - Last Reconciled 10/16/24 by Sheri Jose PA-C compressor, for nebulizer As directed cyclobenzaprine 10 mg PO BID PRN doxycycline hyclate 20 mg PO BID ferrous sulfate 325 mg PO DAILY 90 days levalbuterol HCl 1.25 mg (3 mL) inhalation Q4H PRN metronidazole 0.75% 1 appl topical BEDTIME PRN mycophenolate mofetil 500 mg PO BID nebulizers As directed omeprazole 10 mg PO DAILY@0630 oxycodone 5 mg PO Q6H PRN Oxygen Home Use As directed prednisone See Taper mg PO DIRECTED Tobacco use date assessed: 10/16/24 Dental Screening Dental Screen Date: 07/27/24 HPI ED f/u [facility] [place] 09/23 HPI Details 48-year-old female with past medical his tory of interstitial lung disease chronically on 2 L of home oxygen, Crohn's disease, GERD, generalized anxiety disorder last seen 08/2024 coming in for hospital discharge follow up. In review of the notes, patient was seen in [facility] [place] ED 09/22/2024 for low back pain and cough.?Chest x-ray showing chronic lung disease back x-ray showing multiple compression fracture deformities throughout the thoracic and lumbar spine with acute compression fracture at L3 and admitted for further observation.?She was continued on 2 L of supplemental oxygen and treated with IV Levaquin and prophylactic Bactrim for interstitial lung disease and pain management for back pain and discharged home 09/24/2024. Planning Specialist [id number] Lion was used for the duration of this tele visit. Patient continues to have back pain has been using cyclobenzaprine with good relief of her back pain but has run out of the prescription. She feels her nieves athing has gone back to baseline and continues on the 2 L of home oxygen. [facility] Medical History (Updated 10/16/24 @ 16:14 by Sheri Jose PA-C) ILD (interstitial lung disease) Supplemental oxygen dependent Pneumomediastinum Breast cancer screening by mammogram Overweight (BMI 25.0-29.9) Abnormal CT scan, chest Hemorrhoids with complication Colon cancer screening Generalized abdominal pain Visual impairment Duodenal ulcer GERD (gastroesophageal reflux disease) Obesity (BMI 30-39.9) Menometrorrhagia Seizure in childhood Sclerosing mesenteritis GERD without esophagitis Surgical History History of esophagogastroduodenoscopy (EGD) Hx of colonoscopy Hx of cholecystectomy (~2005) Hx of hysterectomy Hx of section Family History Father Myocardial infarct CVA (cerebral vascular accident) Mother No problems noted. Daughter No problems noted. Son No problems noted. Brother Substance abuse Social History Household Members: Family Housing: Apartment Do you presently have visiting nurse or other home services: No Alcohol intake: never Patient Tobacco Use Status: Never used Tobacco e-Cigarette/Vaping Use: Never Used Second Hand Smoke Exposure: No service: No Current occupational status: employed and unemployed Current occupation: [employer] Cognitive needs: No Hearing needs: No Vision needs: No Questionnaire Thrive Questionnaire Date Thrive assessed: 09/06/24 I am a: Patient What is your living situation today?: I have a steady place to live Within the past 12 months, did the food you bought not last and you didn't have the money to get more?: Sometimes True Within the past 12 months, did you worry whether your food would run out before you got money to buy more?: Sometimes True Do you have trouble paying for medicines?: Yes Do you have trouble getting transportation to medical appointments?: No Do you have trouble paying your heating and electricity bill?: Yes Do you have trouble taking care of your child, family member or friend?: No Do you have trouble with day-to-day activities such as bathing, preparing meals, shopping, managing finances, etc.?: Yes Are you currently unemployed and looking for a job?: Yes Are you interested in more education?: Yes Currently or been in a relationship where the following occur: No concerns reported THRIVE Score: 3 AUDIT C Alcohol Use Questionnaire (AUDIT-C) 3. How often do you have six or more drinks on one occasion?: Never Total Score: 0 YSABEL-7 AMB Questionnaire YSABEL-7 Date YSABEL - 7 assessed: 09/13/24 Source: Developed by Drs. Jerod Grover, Heather Bennett, Georgi Contreras and colleagues, with an educational cristal from [employer]. Review of Systems Const Denies body aches, Denies chills and Denies fever(s) ENT Reports no additional complaints Card Denies chest pain, Denies leg edema, Denies lightheadedness and Reports dyspnea (Chronic) Resp Reports dyspnea (Chronic) GI Denies no additional complaints, Denies constipation, Denies diarrhea, Denies nausea and Denies vomiting Musc Reports abnormal gait and Reports back pain Neuro Reports abnormal gait Physical exam (Primary Care) Vital Signs: Vital signs physical exam not performed due to the nature of telehealth visit Tobacco/Smoking Status: Tobacco use Status Tobacco use date assessed 10/16/24 10/16/24 15:14 Patient Tobacco Use Status Never used Tobacco 10/16/24 15:14 e-Cigarette/Vaping Use Never Used 10/16/24 15:14 Thrive Assessment: Date of Thrive Assessment Date Thrive assessed 09/06/24 10/16/24 15:14 Currently or been in a relationship where the following occur: No concerns reported Telehealth Telehealth Telehealth Platform: [employer] Location of provider rendering services: practice address Location of patient: address on file Patient Identification confirmed using: Name, : Yes Telehealth method: video Patient verbally consented to treatment: Yes Patient verbally consented to billing insurance company: Yes Patient informed of any privacy concerns related to visit: Yes Coding Level of Care Code Tele Est Pt Level 3 (36407) Diagnoses Compression fracture of L3 vertebra S32.030A ILD (interstitial lung disease) J84.9 Assessment & Plan Assessment & Plan (1) Compression fracture of L3 vertebra: Code(s): S32.030A - Wedge compression fracture of third lumbar vertebra, initial encounter for closed fracture Category: Medical Plan: Plan to refer to pain management clinic for further treatment. Continue on cyclobenzaprine as needed and may use Tylenol and ibuprofen as needed. (2) ILD (interstitial lung disease): Code(s): J84.9 - Interstitial pulmonary disease, unspecified Category: Medical Plan: Patient feels her breathing has gone back to baseline and continues on 2 L of home oxygen. She will follow up with pulmonology in the next few weeks. Plan This note was constructed using voice recognition software. While every effort has been made to ensure accuracy and yarn spinner, still areas may have been included sometimes these areas may affect the content or meeting of the given symptoms. Total time spent caring for the patient today was 20 minutes. This includes time spent before the visit reviewing the chart, time spent during the visit, and time spent after the visit and documentation. Orders: Referrals Pain Management Referral S32.030A - Wedge compression fracture of third lumbar vertebra, initial encounter for closed fracture Medications: Refilled cyclobenzaprine monitor for sedation 10 mg PO BID PRN 30 tabs 0RF Muscle Spasm
== END 2024-10-16 16:27 | disposition home or self-care (01) ==
LOC: HO.HMCH 15:11
PROVIDERS: PCP Internal Medicine
DX: S32.030A Wedge compression fracture of third lumbar vertebra, initial encounter for closed fracture (principal); J84.9 Interstitial pulmonary disease, unspecified

== ENCOUNTER → 2024-10-16 15:11 | Outpatient (BNVA) | payer OTHER, SELFPAY | PROVIDERS: PCP Internal Medicine ==

== ENCOUNTER 2024-11-03 13:49 | Outpatient (AMB) | payer OTHER, SELFPAY ==
--- NOTE | 2024-11-03 13:52 | A.OFFVIS_ITS ---
Vital Signs 11/03/24 14:01 11/03/24 14:11 Height 5 ft 1 in Weight 125 lb BMI 23.6 BP 133/72 Blood Pressure Location Rt brachial Position Sitting Pulse 154 H 110 H Pulse Source Pulse Oximeter Pulse Oximeter Pulse Oximetry (%) 90 L 94 Oxygen Delivery Method Nasal Cannula Nasal Cannula Oxygen Flow Rate 3 3 Comment pulse recheck Intake Visit Reasons: Wedge compression fracture of 3rd lumbar vertebra Intake Note: Pain today 02/04 Night Manager Required: Yes Night Manager Language: Spectacle Truer Name: Lore Accompanied by: Family/Other Allergies No Known Allergies [No Known Allergies*] Allergy (Verified 11/03/24 14:00) HPI HPI Wedge compression fracture of 3rd lumbar vertebra: Location: lower back Duration: august Characteristics of symptom or complaint: burning, cracking Aggravating or associated factors: movement Relieving factors: oxycodone 5mg, Treatment: oxycodone, cyclobenzaprine HPI Comments Details: The patient is a 49-year-old female presenting with back pain and compression fractures. The symptoms began at the end of August following episodes of coughing, without accompanying trauma. The patient is experiencing debilitating pain affecting her mobility and quality of life, having been mostly wheelchair and bedridden for the past month due to weakness and inability to stand or walk. She reports her back pain as localized to the area of lower thoracic and lumbar areas. Her medical history includes interstitial lung disease, necessitating oxygen dependence, and long-term usage of prednisone, initially at a higher dose but now tapered to 10 mg. There is potential that bone fragility from chronic corticosteroid use has led to or exacerbated the compression fractures. Her childhood history of seizures was noted; however, she has not experienced seizures in her adult life. The patient has undertaken no surgical treatments or injections for her spinal issues to date. Though she has yet to utilize a back brace, she has expressed interest in this option for lumbar support and pain relief. Pain currently disrupts her sleep, particularly when repositioning. - Onset: End of August - Quality: Persistent, significant pain, localized in the back - Primary Location: Area of compression fractures in the back - Exacerbating Factors: Coughing, movement-related activities - Relieving Factors: Not specifically mentioned - Impact on Activities: Inability to stand, mobility significantly impaired, issues with sleep due to pain while turning - Affect: Pain has led to increased bedridden time and compromised mobility - Analgesia: Currently taking cyclobenzaprine; pain continues to severely impact functioning - Adverse Effects: None mentioned - Activities of Daily Living: Severely impaired with bedridden state for the past month; difficulty standing and performing basic activities - Aberrant Drug Related Behaviors: None reported [facility] Medical History ILD (interstitial lung disease) Supplemental oxygen dependent Pneumomediastinum Breast cancer screening by mammogram Overweight (BMI 25.0-29.9) Abnormal CT scan, chest Hemorrhoids with complication Colon cancer screening Generalized abdominal pain Visual impairment Duodenal ulcer GERD (gastroesophageal reflux disease) Obesity (BMI 30-39.9) Menometrorrhagia Seizure in childhood Sclerosing mesenteritis GERD without esophagitis Surgical History History of esophagogastroduodenoscopy (EGD) Hx of colonoscopy Hx of cholecystectomy (~2005) Hx of hysterectomy Hx of section Family History Father Myocardial infarct CVA (cerebral vascular accident) Mother No problems noted. Daughter No problems noted. Son No problems noted. Brother Substance abuse Social History Household Members: Family Housing: Apartment Do you presently have visiting nurse or other home services: No Alcohol intake: never Patient Tobacco Use Status: Never used Tobacco e-Cigarette/Vaping Use: Never Used Second Hand Smoke Exposure: No service: No Current occupational status: employed and unemployed Current occupation: [employer] Cognitive needs: No Hearing needs: No Vision needs: No Review of Systems Const All systems reviewed & are unremarkable except as noted in HPI and below Physical Exam Vital Signs: Last Vital Signs Pulse 110 H 11/03/24 14:11 BP 133/72 11/03/24 14:01 Pulse Ox 94 11/03/24 14:11 Oxygen Delivery Method Nasal Cannula 11/03/24 14:11 Oxygen Flow Rate 3 11/03/24 14:11 BMI result Body Mass Index 23.6 General: Appears afebrile. Alert and oriented. Mood and affect appropriate. Follows and participates in conversation appropriately. Respiratory effort is unlabored. No cough. O2 dependant. Dyspnea noted. Able to transition from sit to stand for short duration with assistance. Unable to walk due to significant pain and weakness. Arrived via wheelchair, sitting moderately uncomfortable due to back pain. General: Yes no CVA tenderness Back/Spine/Pelvis Other: Unable to perform back exam due to significant mid and lower back pain, easily reproduced with minimal lumbar extension, flexion reproduces moderate and extension moderately-severe pain. Mild to moderate TTP in lower thoracic and lumbar spine. Back: no CVA tenderness and back tenderness Cervical Spine: cervical ROM normal, cervical muscular tenderness and No Cervical spine tenderness Thoracic/Lumbar Spine: thoracic and lumbar spine normal to inspection, No Thoracic/lumbar spine scar(s), Lasegue's sign negative, straight leg raise negative bilaterally, pain with thoraco-lumbar ROM, paraspinal muscle tenderness, thoraco-lumbar ROM limited, Thoracic/lumbar scoliosis, thoracic spinal tenderness (lower thoracic) and lumbar spinal tenderness at L2, at L3, at L4 and at L5 Pelvis: buttock tenderness bilaterally Sacroiliac joints: bilaterally tender to palpation Results Reviewed Results Reviewed: XR LUMBOSACRAL SPINE 09/22/24 CLINICAL INFORMATION: lower back pain. fracture? COMPARISON: August 01, 2019. TECHNIQUE: Three views of the lumbosacral spine. FINDINGS: Superior endplate compression deformity representing 30% volume loss at L2. Sclerotic superior compression deformity representing 20% volume loss at L3. Superior endplate compression deformity representing 20% volume loss at L5. Multiple likely osteoporotic compression deformities in the lower thoracic spine. Levoconvex rotoscoliosis versus positioning. Vascular clips right upper quadrant abdomen. IMPRESSION: Multiple compression fracture deformities throughout the thoracic and lumbar spine the possibility of acute to subacute fracture at L3 should be considered in the correct clinical settings. Assessment & Plan Assessment & Plan (1) Vertebral compression fracture: Code(s): M48.50XA - Collapsed vertebra, not elsewhere classified, site unspecified, initial encounter for fracture Category: Medical (2) Back pain: Code(s): M54.9 - Dorsalgia, unspecified Category: Medical (3) Compression fracture of L3 vertebra: Code(s): S32.030A - Wedge compression fracture of third lumbar vertebra, initial encounter for closed fracture Category: Medical (4) Osteoporosis: Code(s): M81.0 - Age-related osteoporosis without current pathological fracture Category: Medical (5) Lumbar degenerative disc disease: Code(s): M51.369 - Other intervertebral disc degeneration, lumbar region without mention of lumbar back pain or lower extremity pain Category: Medical (6) Spondylosis of thoracolumbar spine: Code(s): M47.815 - Spondylosis without myelopathy or radiculopathy, thoracolumbar region Category: Medical Plan To manage the patient's back pain from compression fractures, we will proceed with a thoracic and lumbar spine MRI and a bone scan to evaluate for underlying osteoporosis, given history of continuous churn buttermaker prednisone therapy. In terms of providing structural support, I will arrange for a custom-fit back brace through [employer], mindful of her respiratory needs due to interstitial lung disease and O2 dependance. If additional diagnostic imaging confirms a need for surgical intervention, kyphoplasty or [facility] procedures might be considered. All questions and concerns have been answered and patient agreed with the plan. Anticipated follow-up after imaging will determine the future treatment plan. Patient was informed and verbally consented to the use of an ambient scribe for clinic note documentation during this visit. Orders: Orders MR thoracic spine wo con Today M48.50XA - Collapsed vertebra, not elsewhere classified, site unspecified, initial encounter for fracture, M54.9 - Dorsalgia, unspecified, M81.0 - Age-related osteoporosis without current pathological fracture, S32.030A - Wedge compression fracture of third lumbar vertebra, initial encounter for closed fracture MR lumbar spine wo con Today M48.50XA - Collapsed vertebra, not elsewhere classified, site unspecified, initial encounter for fracture, M54.9 - Dorsalgia, unspecified, M81.0 - Age-related osteoporosis without current pathological fracture, S32.030A - Wedge compression fracture of third lumbar vertebra, initial encounter for closed fracture XR DEXA axial skeleton Today M48.50XA - Collapsed vertebra, not elsewhere classified, site unspecified, initial encounter for fracture, M81.0 - Age-relate d osteoporosis without current pathological fracture Medications: New back brace As directed 1 ea 0RF pain M48.50XA - Collapsed vertebra, not elsewhere classified, site unspecified, initial encounter for fracture, M54.9 - Dorsalgia, unspecified, S32.030A - Wedge compression fracture of third lumbar v ertebra, initial encounter for closed fracture Coding Level of Care Code New Pt Level 4 (12692) Diagnoses Vertebral compression fracture M48.50XA Back pain M54.9 Compression fracture of L3 vertebra S32.030A Osteoporosis M81.0 Lumbar degenerative disc disease M51.369 Spondylosis of thoracolumbar spine M47.815
[2024-11-03 14:01] VITALS: BP 133/72; PULSE 154; O2SAT 90; BMI 23.6
[2024-11-03 14:11] VITALS: PULSE 110; O2SAT 94
== END 2024-11-03 14:33 | disposition home or self-care (01) ==
LOC: HO.PMC 13:50
PROVIDERS: PCP Internal Medicine; Visit Provider Nurse Practitioner Family
DX: M48.50XA Collapsed vertebra, not elsewhere classified, site unspecified, initial encounter for fracture (principal); M54.9 Dorsalgia, unspecified; S32.030A Wedge compression fracture of third lumbar vertebra, initial encounter for closed fracture; M81.0 Age-related osteoporosis without current pathological fracture; M51.369 Other intervertebral disc degeneration, lumbar region without mention of lumbar back pain or lower extremity pain; M47.815 Spondylosis without myelopathy or radiculopathy, thoracolumbar region
CPT/HCPCS: 99204

== ENCOUNTER → 2024-11-03 13:49 | Outpatient (BNVA) | payer OTHER, SELFPAY | PROVIDERS: PCP Internal Medicine; Visit Provider Nurse Practitioner Family | DX: S32.030A Wedge compression fracture of third lumbar vertebra, initial encounter for closed fracture (principal); M54.9 Dorsalgia, unspecified; M81.0 Age-related osteoporosis without current pathological fracture; M51.369 Other intervertebral disc degeneration, lumbar region without mention of lumbar back pain or lower extremity pain; M47.815 Spondylosis without myelopathy or radiculopathy, thoracolumbar region; X58.XXXA Exposure to other specified factors, initial encounter; Y93.9 Activity, unspecified; Y92.9 Unspecified place or not applicable; Y99.9 Unspecified external cause status | CPT/HCPCS: 99202 ==

== ENCOUNTER 2024-11-07 14:37 | Outpatient (AMB) | payer OTHER, SELFPAY ==
[2024-11-07 14:58] VITALS: BP 154/88; PULSE 128; O2SAT 97
--- NOTE | 2024-11-07 14:58 | A.OFFPC_ITS ---
Vital Signs 11/07/24 14:58 Height 5 ft 1 in BMI Reason not done Patient refused/unable BP 154/88 H Blood Pressure Location Lt brachial Position Sitting Pulse 128 H Pulse Source Pulse Oximeter Pulse Oximetry (%) 97 Oxygen Delivery Method Nasal Cannula Intake Visit Reasons: Alternative Med Allergies No Known Allergies [No Known Allergies*] Allergy (Verified 11/07/24 14:58) Medication List - Last Reconciled 11/07/24 by Nolberto Garcia MD back brace As directed compressor, for nebulizer As directed cyclobenzaprine 10 mg PO BID PRN doxycycline hyclate 20 mg PO BID ferrous sulfate 325 mg PO DAILY 90 days fluconazole 2 tabs today then once a day orallyfor 6 days ; levalbuterol HCl 1.25 mg (3 mL) inhalation Q4H PRN metronidazole 0.75% 1 appl topical BEDTIME PRN mycophenolate mofetil 500 mg PO BID nebulizers As directed nystatin 5 mL PO TID 7 days omeprazole 20 mg PO DAILY@0630 oxycodone 5 mg PO Q6H PRN Oxygen Home Use As directed prednisone 10 mg PO DAILY Tobacco use date assessed: 10/16/24 Dental Screening Dental Screen Date: 07/27/24 HPI Alternative Med HPI Details [id number] Grzegorz. on swallowing pain on epigastric area. states on swallowing pain 2 week PFSH Medical History ILD (interstitial lung disease) Supplemental oxygen dependent Pneumomediastinum Breast cancer screening by mammogram Overweight (BMI 25.0-29.9) Abnormal CT scan, chest Hemorrhoids with complication Colon cancer screening Generalized abdominal pain Visual impairment Duodenal ulcer GERD (gastroesophageal reflux disease) Obesity (BMI 30-39.9) Menometrorrhagia Seizure in childhood Sclerosing mesenteritis GERD without esophagitis Surgical History History of esophagogastroduodenoscopy (EGD) Hx of colonoscopy Hx of cholecystectomy (~2005) Hx of hysterectomy Hx of section Family History Father Myocardial infarct CVA (cerebral vascular accident) Mother No problems noted. Daughter No problems noted. Son No problems noted. Brother Substance abuse Social History Household Members: Family Housing: Apartment Do you presently have visiting nurse or other home services: No Alcohol intake: never Patient Tobacco Use Status: Never used Tobacco Tobacco use type: Cigarette e-Cigarette/Vaping Use: Never Used Second Hand Smoke Exposure: No service: No Current occupational status: employed and unemployed Current occupation: [employer] Cognitive needs: No Hearing needs: No Vision needs: No Questionnaire Thrive Questionnaire Date Thrive assessed: 09/06/24 I am a: Patient What is your living situation today?: I have a steady place to live Within the past 12 months, did the food you bought not last and you didn't have the money to get more?: Sometimes True Within the past 12 months, did you worry whether your food would run out before you got money to buy more?: Sometimes True Do you have trouble paying for medicines?: Yes Do you have trouble getting transportation to medical appointments?: No Do you have trouble paying your heating and electricity bill?: Yes Do you have trouble taking care of your child, family member or friend?: No Do you have trouble with day-to-day activities such as bathing, preparing meals, shopping, managing finances, etc.?: Yes Are you currently unemployed and looking for a job?: Yes Are you interested in more education?: Yes Currently or been in a relationship where the following occur: No concerns reported THRIVE Score: 3 YSABEL-7 AMB Questionnaire YSABEL-7 Date YSABEL - 7 assessed: 09/13/24 Source: Developed by Drs. Jerod Grover, Heather Bennett, Georgi Contreras and colleagues, with an educational cristal from [employer]. Physical exam (Primary Care) Vital Signs: Last Vital Signs Pulse 128 H 11/07/24 14:58 BP 154/88 H 11/07/24 14:58 Pulse Ox 97 11/07/24 14:58 Oxygen Delivery Method Nasal Cannula 11/07/24 14:58 Tobacco/Smoking Status: Tobacco use Status Tobacco use date assessed 10/16/24 11/07/24 15:04 Patient Tobacco Use Status Never used Tobacco 11/07/24 15:04 Tobacco use type Cigarette 11/07/24 15:04 e-Cigarette/Vaping Use Never Used 11/07/24 15:04 Thrive Assessment: Date of Thrive Assessment Date Thrive assessed 09/06/24 11/07/24 15:04 Currently or been in a relationship where the following occur: No concerns reported Const Other: Posterior pharyngeal wall with why creamy discharge Coding Level of Care Code Est Pt Level 4 (69837) Complex EM visit Add On G2211 Diagnoses Compression fracture of L3 vertebra S32.030A ILD (interstitial lung disease) J84.9 Osteoporosis M81.0 Gastroesophageal reflux disease without esophagitis K21.9 Esophagitis presence: without esophagitis Esophageal candidiasis B37.81 Lumbar vertebral fracture, pathologic M84.48XA Thoracic vertebral fracture S22.009A Assessment & Plan Assessment & Plan (1) Compression fracture of L3 vertebra: Code(s): S32.030A - Wedge compression fracture of third lumbar vertebra, initial encounter for closed fracture Category: Medical Plan: Patient has gone to the pain management. Discussed about the problem with osteoporosis and advised referral to Endocrinology (2) ILD (interstitial lung disease): Code(s): J84.9 - Interstitial pulmonary disease, unspecified Category: Medical Plan: Continue to follow-up with Pulmonary. Patient on oxygen and prednisone. (3) Osteoporosis: Code(s): M81.0 - Age-related osteoporosis without current pathological fracture Category: Medical Plan: Discussed about calcium and vitamin-D. Discussed concerns on referral to endocrinology (4) GERD (gastroesophageal reflux disease): Code(s): K21.9 - Gastro-esophageal reflux disease without esophagitis Category: Medical Qualifiers: Esophagitis presence: without esophagitis Qualified Code(s): K21.9 - Gastro-esophageal reflux disease without esophagitis Plan: Avoid the foods that causes that usually spicy foods, tomato products, juices, coffee, soda and foods that your sensitive to. After eating do not lie down, allow 3-4 hours before in lie down. And keep the head of bed above 30 degrees to avoid the acid from going up. (5) Esophageal candidiasis: Code(s): B37.81 - Candidal esophagitis Category: Medical (6) Lumbar vertebral fracture, pathologic: Code(s): M84.48XA - Pathological fracture, other site, initial encounter for fracture Category: Medical (7) Thoracic vertebral fracture: Code(s): S22.009A - Unspecified fracture of unspecified thoracic vertebra, initial encounter for closed fracture Category: Medical Plan History of Present Illness The patient is a 49-year-old female presenting with a follow-up for multiple chronic conditions including Gastroesophageal Reflux Disease (GERD), pulmonary nodules, generalized anxiety disorder, IgA gammopathy, Crohn's disease, vertebral compression fractures, interstitial lung disease, and osteoporosis. She reports persistent back issues related to multiple vertebral compression fractures confirmed in previous imaging, leading to significant height loss in lumbar areas L2 (30%) and L3, L5 (20%) as well as multiple fractures in the thoracic region. This has resulted in weak bone structures compromising normal posture and function. The patient was last admitted to the hospital in August 2024 and reports no current back pain. She has an elevation in liver function tests but no anemia in last blood work on September 22. Oxygen dependence is noted due to interstitial lung disease, with long-term prednisone use (10 mg). There is a history of GERD symptoms exacerbated by suboptimal dosing of omeprazole, now adjusted to 20 mg twice daily temporarily due to esophageal pain upon swallowing. This symptom started around two weeks ago. On examination, oral candidiasis due to steroid use is suspected, and treatment adjustments including antifungal medications and increased omeprazole were initiated. Health Maintenance - Last colonoscopy May 2023 - Mammogram scheduled for September 2023 - Bone health discussion including Calcium and Vitamin D supplementation - Recommended endocrinology referral for osteoporosis management - Advised on MRI for vertebral fractures Social History - Exercise and functional status not explicitly discussed - No discussion on employment or family status Review of Systems - Gastrointestinal: Reports esophageal pain when swallowing, history of GERD - Musculoskeletal: Reports vertebral compression fractures, denies back pain - Pulmonary: Reports oxygen dependence Physical Exam Results - Labs: Last blood work on September 22, demonstrating elevated liver function tests, normal blood count, no anemia - Imaging: Previous imaging revealed lumbar spine height loss and fractures - Procedures: Bone scan and MRI recommended Plan For GERD and recently identified oral candidiasis, I advised increasing omeprazole to 20 mg twice daily and initiated antifungal medication, withholding oxycodone during its course. I recommended an urgent endocrinology consult to evaluate the severe osteoporosis and review potential interventions such as medication adjustments and supplements. Calcium and vitamin D supplementation is crucial, with 5000 units of vitamin D added to the regimen. An MRI is planned to assess vertebral fracture implications, complemented by an urgent referral for specialist guidance. I ensured continued monitoring of liver function tests given recent elevation. Patient was informed and verbally consented to the use of an ambient scribe for clinic note documentation during this visit. Discussion Notes During the consultation, I addressed the management of GERD symptoms, emphasizing the increased dosage of omeprazole due to current severity and oral candidiasis treatment intricacies. I discussed steroid-related complications, introducing antifungal therapy with caution against concurrent oxycodone use to prevent interactions. I emphasized the importance of timely intervention for osteoporosis, advising on vitamin D enhancement and urgent endocrinology referral for optimal bone management strategy. I explained the rationale for MRI and potential kyphoplasty limitations given multiple compression fractures. We also reviewed lifestyle modifications, emphasizing bone health safeguards and upcoming diagnostic tests and follow-up schedules. Patient Instructions - Increase omeprazole to 20 mg twice daily for GERD management. - Take prescribed antifungal medication; avoid oxycodone during the initial 7 days. - Take Caltrate and add 5000 units of vitamin D daily. - Attend scheduled MRI and consult with advertising sales manager urgently. - Monitor for symptoms of worsening GERD or new symptoms and report immediately. - Follow the pain management plan and report any back pain or changes in symptoms. - Ensure follow-up with the specialist for comprehensive review and further management. Orders: Referrals Endocrinology Referral M81.0 - Age-related osteoporosis without current pathological fracture Medications: New calcium carbonate-vitamin D3 600 mg-20 mcg (800 unit) (Caltrate plus D) 1 tab PO DAILY 30 tabs 0RF M81.0 - Age-related osteoporosis without current pathological fracture fluconazole 2 tabs today then once a day orallyfor 6 days ; 8 tabs 0RF B37.81 - Candidal esophagitis cholecalciferol (vitamin D3) 125 mcg PO DAILY 90 caps 1RF M81.0 - Age-related osteoporosis without current pathological fracture Changed From omeprazole 10 mg PO DAILY@0630 90 caps 0RF To omeprazole 20 mg PO DAILY@0630 30 caps 2RF
== END 2024-11-07 16:18 | disposition home or self-care (01) ==
PROVIDERS: PCP Internal Medicine; Visit Provider Internal Medicine
DX: S32.030A Wedge compression fracture of third lumbar vertebra, initial encounter for closed fracture (principal); J84.9 Interstitial pulmonary disease, unspecified; B37.81 Candidal esophagitis; S22.009A Unspecified fracture of unspecified thoracic vertebra, initial encounter for closed fracture; M81.0 Age-related osteoporosis without current pathological fracture; K21.9 Gastro-esophageal reflux disease without esophagitis; M84.48XA Pathological fracture, other site, initial encounter for fracture

== ENCOUNTER → 2024-11-07 14:37 | Outpatient (BNVA) | payer OTHER, SELFPAY | PROVIDERS: PCP Internal Medicine; Visit Provider Internal Medicine | DX: K21.9 Gastro-esophageal reflux disease without esophagitis (principal); B37.81 Candidal esophagitis; M81.0 Age-related osteoporosis without current pathological fracture; J84.9 Interstitial pulmonary disease, unspecified; S32.030D Wedge compression fracture of third lumbar vertebra, subsequent encounter for fracture with routine healing; M84.48XD Pathological fracture, other site, subsequent encounter for fracture with routine healing; S22.009D Unspecified fracture of unspecified thoracic vertebra, subsequent encounter for fracture with routine healing | CPT/HCPCS: 99212 ==

== ENCOUNTER 2024-11-14 13:06 | Outpatient (AMB) | payer OTHER, SELFPAY ==
--- NOTE | 2024-11-14 13:46 | A.OFFVIS_ITS ---
Vital Signs 11/14/24 13:47 Height 5 ft 1 in Weight 125 lb BMI 23.6 BP 102/62 Blood Pressure Location Lt brachial Position Sitting Pulse 146 H Pulse Source Pulse Oximeter Pulse Oximetry (%) 94 Oxygen Delivery Method Nasal Cannula Oxygen Flow Rate 3 Intake Visit Reasons: ILD Ultrasound Manager Required: Yes Ultrasound Manager Name: Ava Styles Alan Allergies No Known Allergies [No Known Allergies*] Allergy (Verified 11/07/24 14:58) HPI HPI ILD: Details: 48-year-old lady, nonsmoker, w now followed for interstitial lung disease with recent exacerbation requiring admission in high-dose glucocorticoid course, tapered down to prednisone 60 mg daily and completed 3 months of therapy with has returned to baseline respiratory status requiring 2-3 L of supplemental oxygen. After the last office visit patient was titrated down to prednisone 10 mg daily with no worsening of underlying respiratory symptoms. [facility] Medical History ILD (interstitial lung disease) Supplemental oxygen dependent Pneumomediastinum Breast cancer screening by mammogram Overweight (BMI 25.0-29.9) Abnormal CT scan, chest Hemorrhoids with complication Colon cancer screening Generalized abdominal pain Visual impairment Duodenal ulcer GERD (gastroesophageal reflux disease) Obesity (BMI 30-39.9) Menometrorrhagia Seizure in childhood Sclerosing mesenteritis GERD without esophagitis Surgical History History of esophagogastroduodenoscopy (EGD) Hx of colonoscopy Hx of cholecystectomy (~2005) Hx of hysterectomy Hx of section Family History Father Myocardial infarct CVA (cerebral vascular accident) Mother No problems noted. Daughter No problems noted. Son No problems noted. Brother Substance abuse Social History Household Members: Family Housing: Apartment Do you presently have visiting nurse or other home services: No Alcohol intake: never Patient Tobacco Use Status: Never used Tobacco Tobacco use type: Cigarette e-Cigarette/Vaping Use: Never Used Second Hand Smoke Exposure: No service: No Current occupational status: employed and unemployed Current occupation: [employer] Cognitive needs: No Hearing needs: No Vision needs: No Review of Systems Const Denies daytime sleepiness, Denies excessive sweating, Denies fatigue, Denies fever(s), Denies lethargy, Denies malaise, Denies night sweats, Denies snoring and Denies weight loss Eyes Denies blurry vision and Denies itchy eyes ENT Denies nasal congestion, Denies post nasal drip, Denies sinus pain, Denies sinus pressure and Denies other ( Thrush) Card Denies chest pain, Denies pedal edema, Denies dyspnea, Denies orthopnea and Denies paroxysmal nocturnal dyspnea Resp Denies cough, Denies hemoptysis, Denies excessive phlegm production, Denies dyspnea, Denies snoring and Denies wheezing GI Denies abdominal pain and Denies heartburn Musc Denies myalgias, Denies arthralgias and Denies joint swelling Neuro Denies memory loss and Denies seizure-like activity Psych Denies abnormal sleep pattern, Denies anxiety and Denies memory loss Endo Denies excessive sweating, Denies fatigue and Denies heat intolerance Remy/Lymph Denies easy bruising Aller/Immun Denies itchy eyes, Denies seasonal rhinorrhea and Denies wheezing Physical Exam Vital Signs: Last Vital Signs Pulse 146 H 11/14/24 13:47 BP 102/62 11/14/24 13:47 Pulse Ox 94 11/14/24 13:47 Oxygen Delivery Method Nasal Cannula 11/14/24 13:47 Oxygen Flow Rate 3 11/14/24 13:47 BMI result Body Mass Index 23.6 Const General: no acute distress and alert Nutritional Appearance: not obese Orientation/consciousness: Other orientation findings ( oriented) HEENT Head: Yes atraumatic Eyes General: appearance normal, both eyes and all related structures Sclerae: sclerae normal EOM: EOMs intact bilaterally Neck Neck: Yes supple Lymphatic: no lymphadenopathy noted Resp Effort & Inspection: normal respiratory effort and no use of accessory muscles Auscultation: clear to auscultation bilaterally Cardio Rate: regular rate Rhythm: regular rhythm Heart sounds: no gallops, no murmurs and no rubs Skin General skin exam: other ( warm) Extrem General: No clubbing, No cyanosis and No edema Assessment & Plan Assessment & Plan (1) ILD (interstitial lung disease): Code(s): J84.9 - Interstitial pulmonary disease, unspecified Category: Medical Plan: Symptoms stable after titrating prednisone down to 10 mg daily, will continue further titration by 2.5 mg every 2 weeks to goal of 5 mg daily. (2) Supplemental oxygen dependent: Code(s): Z99.81 - Dependence on supplemental oxygen Category: Medical Plan: Continue supplemental oxygen to maintain O2 saturation above 88%. Medications: New prednisone 7.5 mg (3 x 2.5 mg) PO DAILY 30 days 90 tabs 3RF Discontinued prednisone Discontinued Reason: Doctor's Order 10 mg PO DAILY 14 tabs 0RF Coding Level of Care Code Est Pt Level 4 (19732) Complex EM visit Add On G2211 Diagnoses ILD (interstitial lung disease) J84.9 Supplemental oxygen dependent Z99.81
[2024-11-14 13:47] VITALS: BP 102/62; PULSE 146; O2SAT 94; BMI 23.6
== END 2024-11-14 14:15 | disposition home or self-care (01) ==
LOC: HO.HPS 13:07
PROVIDERS: PCP Internal Medicine; Visit Provider Internal Medicine Pulmonary Disease
DX: J84.9 Interstitial pulmonary disease, unspecified (principal); Z99.81 Dependence on supplemental oxygen
CPT/HCPCS: 99214; G2211

== ENCOUNTER → 2024-11-14 13:06 | Outpatient (BNVA) | payer OTHER, SELFPAY | PROVIDERS: PCP Internal Medicine; Visit Provider Internal Medicine Pulmonary Disease | DX: J84.9 Interstitial pulmonary disease, unspecified (principal); Z99.81 Dependence on supplemental oxygen | CPT/HCPCS: 99212 ==

== ENCOUNTER → 2024-11-19 14:07 | Outpatient (BNV) | payer OTHER, SELFPAY | PROVIDERS: PCP Internal Medicine; Visit Provider Radiology Diagnostic Radiology | DX: M48.50XA Collapsed vertebra, not elsewhere classified, site unspecified, initial encounter for fracture (principal) | CPT/HCPCS: 72146; 72148 ==

== ENCOUNTER 2024-11-19 14:08 | Outpatient (REF) | payer OTHER, SELFPAY ==
--- NOTE | ~2024-11-19 | MR_ITS ---
CLINICAL HISTORY: M48.50XA - Collapsed vertebra, not elsewhere classified, site unspecifie... --- Add itional Notes or Special Instructions: Multiple compression fracture deformities throughout the thora cic and MRI LUMBAR SPINE WITHOUT CONTRAST Comparison: None Findings: The vertebral bodies are in satisfactory alignment. Acute mild superior endplate compression deformity in L4. Mild chronic compression deformities in L2, L3 and L5. Conus medullaris and cauda equina unremarkable. T12-L1: Unremarkable L1-2: Unremarkable L2-3: Unremarkable L3-4: Unremarkable L4-5: Shallow disc displacement. No significant spinal or foraminal stenosis. L5-S1: Mild disc bulge. No significant spinal or foraminal stenosis. Visualized retroperitoneum unremarkable. Paraspinous muscles unremarkable. Impression: 1. [Mild acute L4 compression fracture. 2. Mild chronic compression fractures in L2, L3 and L5. 3. Mild disc disease L4-5 and L5-S1. 4. No significant spinal or foraminal stenosis. This document has been electronically signed by: Linda Melchor DO on 11/19/2024 15:58:04
--- NOTE | ~2024-11-19 | MR_ITS ---
CLINICAL HISTORY: M48.50XA - Collapsed vertebra, not elsewhere classified, site unspecifie... --- Add itional Notes or Special Instructions: Multiple compression fracture deformities throughout the thora cic and MR THORACIC SPINE WITHOUT GADOLINIUM Comparison: None Findings: Normal alignment. Acute mild superior endplate compression deformities in T11 and T12. Chronic mild compression fractures in T3, T5, T6, T7, T9 and T10. Thoracic cord normal size and signal. No significant disc displacement. No spinal or foraminal stenosis. Paraspinous musculature intact. IMPRESSION: 1. Mild acute compression fractures in T11 and T12 with no significant bony retropulsion. 2. Mild chronic compression fractures in T3, T5, T6, T7, T9 and T10. This document has been electronically signed by: Linda Melchor DO on 11/19/2024 16:06:35
== END 2024-11-19 14:09 | disposition home or self-care (01) ==
LOC: HO.MRI 14:08
PROVIDERS: PCP Internal Medicine; Visit Provider Nurse Practitioner Family
DX: S32.030A Wedge compression fracture of third lumbar vertebra, initial encounter for closed fracture (principal); M54.9 Dorsalgia, unspecified; M81.0 Age-related osteoporosis without current pathological fracture
CPT/HCPCS: 72146; 72148

== ENCOUNTER 2024-12-04 13:36 | Outpatient (AMB) | payer OTHER, SELFPAY ==
--- NOTE | 2024-12-04 13:56 | MHC.OFFVIS ---
Vital Signs 12/04/24 14:00 Height 5 ft 1 in Weight 125 lb BMI 23.6 BP 110/62 Blood Pressure Location Lt brachial Position Sitting Pulse 129 H Pulse Source Monitor Intake Visit Reasons: 2 month f/up rs from 09/25/24 Intake Note: 2mth f/up Purchase Analyst Required: Yes Purchase Analyst Language: Public Health Inspector Name: [email or web address] Accompanied by: Significant Other Allergies No Known Allergies [No Known Allergies*] Allergy (Verified 11/07/24 14:58) Medication List - Last Reconciled 12/04/24 by Herman Finley MD back brace As directed calcium carbonate-vitamin D3 600 mg-20 mcg (800 unit) (Caltrate plus D) 1 tab PO DAILY cholecalciferol (vitamin D3) 125 mcg PO DAILY compressor, for nebulizer As directed cyclobenzaprine 10 mg PO BID PRN doxycycline hyclate 20 mg PO BID ferrous sulfate 325 mg PO DAILY 90 days itraconazole 200 mg (20 mL) PO DAILY 7 days levalbuterol HCl 1.25 mg (3 mL) inhalation Q4H PRN metronidazole 0.75% 1 appl topical BEDTIME PRN nebulizers As directed nystatin 5 mL PO TID 7 days omeprazole 20 mg PO DAILY@0630 Oxygen Home Use As directed prednisone 7.5 mg (3 x 2.5 mg) PO DAILY 30 days HPI Comments Details: 49 female with ILD on supplemental oxygen. She has tachycardia and palpitations. She was in the hospital recently with exacerbation of ILD. she was seen at that time for sinus tachycardia. It was felt that the sinus tachycardia is due to underlying lung disease and hypoxia. She returns and continues to be on supplemental oxygen. She gets palpitations when she gets up and walk. She is tachycardic at baseline in 120s in sinus tachycardia. [facility] Medical History ILD (interstitial lung disease) Supplemental oxygen dependent Pneumomediastinum Breast cancer screening by mammogram Overweight (BMI 25.0-29.9) Abnormal CT scan, chest Hemorrhoids with complication Colon cancer screening Generalized abdominal pain Visual impairment Duodenal ulcer GERD (gastroesophageal reflux disease) Obesity (BMI 30-39.9) Menometrorrhagia Seizure in childhood Sclerosing mesenteritis GERD without esophagitis Surgical History History of esophagogastroduodenoscopy (EGD) Hx of colonoscopy Hx of cholecystectomy (~2005) Hx of hysterectomy Hx of section Family History Father Myocardial infarct CVA (cerebral vascular accident) Mother No problems noted. Daughter No problems noted. Son No problems noted. Brother Substance abuse Social History Household Members: Family Housing: Apartment Do you presently have visiting nurse or other home services: No Alcohol intake: never Patient Tobacco Use Status: Never used Tobacco Tobacco use type: Cigarette e-Cigarette/Vaping Use: Never Used Second Hand Smoke Exposure: No service: No Current occupational status: employed and unemployed Current occupation: [employer] Cognitive needs: No Hearing needs: No Vision needs: No Review of Systems Const Denies chills, Denies fatigue, Denies fever(s), Denies frequent falls, Denies weakness, Denies weight gain and Denies weight loss ENT Denies dizziness Card Denies chest pain, Denies leg edema, Denies lightheadedness, Reports palpitations, Denies dyspnea and Reports dyspnea on exertion Resp Denies cough, Denies dyspnea and Reports dyspnea on exertion GI Denies hematochezia Musc Denies abnormal gait, Denies muscle weakness, Denies numbness, Denies radiating pain into limb and Denies tingling Neuro Denies abnormal gait, Denies dizziness, Denies frequent falls, Denies numbness, Denies tingling and Denies weakness Endo Denies fatigue and Reports palpitations Physical Exam Vital Signs: Last Vital Signs Pulse 129 H 12/04/24 14:00 BP 110/62 12/04/24 14:00 BMI result Body Mass Index 23.6 GENERAL APPEARANCE: Emotional and tearful. On supplemental oxygen. NECK: no carotid bruit, no jugular venous distention. SKIN: no suspicious lesions, warm and dry. HEART: no murmurs, regular rate and rhythm. Tachycardic. LUNGS: Bilateral crackles to mid lungs. ABDOMEN: soft, nontender. EXTREMITIES: no edema. PERIPHERAL PULSES: equal. NEUROLOGIC: No gross deficits, AAO X 3 Office Procedures EKG Details: Sinus tachycardia 129 beats per minute, normal axis, inferior infarct, left ventricle hypertrophy, QTC 454 milliseconds. [id number], Complete Assessment & Plan Assessment & Plan (1) Sinus tachycardia: Code(s): R00.0 - Tachycardia, unspecified Category: Medical Plan 49-year-old female with advanced interstitial lung disease on supplemental oxygen who has palpitations and sinus tachycardia. Tachycardia is related to underlying lung disease and hypoxia. This is not an unusual situation. She gets palpitations when she is walking and is quite tachycardic at baseline. I doubt that she can tolerate beta-blockers or calcium channel blockers. I am starting her on ivabradine 5 mg twice a day. Hopefully this controls her heart rate and she gets less palpitations. Biventricular function is normal by echocardiography recently. Thank you for allowing me to participate in the care of your patient. Please feel free to contact me if you have any questions. Coding Level of Care Code Est Pt Level 3 (15992) Complex EM visit Add On G2211 Diagnoses Sinus tachycardia R00.0 CPT Codes EKG - CPT: 07237-[id number], Complete ([id number])
[2024-12-04 14:00] VITALS: BP 110/62; PULSE 129; BMI 23.6
== END 2024-12-04 14:28 | disposition home or self-care (01) ==
LOC: HO.HCS 13:37
PROVIDERS: PCP Internal Medicine; Visit Provider Internal Medicine Cardiovascular Disease
DX: R00.0 Tachycardia, unspecified (principal)
CPT/HCPCS: 93010; 99213; G2211

== ENCOUNTER → 2024-12-04 13:36 | Outpatient (BNVA) | payer OTHER, SELFPAY | PROVIDERS: PCP Internal Medicine; Visit Provider Internal Medicine Cardiovascular Disease | DX: R00.0 Tachycardia, unspecified (principal) | CPT/HCPCS: 93005; 99212 ==

== ENCOUNTER 2024-12-05 15:09 | Outpatient (AMB) | payer OTHER, SELFPAY ==
--- NOTE | 2024-12-05 15:11 | MHC.OFFVIS ---
Vital Signs 12/05/24 15:17 Height 5 ft 1 in Weight 125 lb BMI 23.6 BP 113/77 Blood Pressure Location Rt brachial Position Sitting Pulse 139 H Pulse Source Pulse Oximeter Pulse Oximetry (%) 84 L Oxygen Delivery Method Nasal Cannula Oxygen Flow Rate 2 Intake Visit Reasons: Discuss MRI Results Intake Note: Pain 04/06 Mortgage Specialist Required: Yes Mortgage Specialist Language: Filling Carrier Services: Mortgage Specialist Offered & Declined Mortgage Specialist Name: Stacy Accompanied by: Family/Other Allergies No Known Allergies [No Known Allergies*] Allergy (Verified 12/05/24 15:18) HPI Comments Details: The patient is a 49-year-old female presenting for discussion of recent thoracic and lumbar MRI results and evaluation and management of worsening back pain due to acute and chronic compression fractures. The onset of acute pain began in August, related to physical stress events like coughing, resulting initially in a 'popping' sensation in the back. MRI imaging has confirmed new fractures at T11, T12, and L4, alongside historical compressions of other thoracic and lumbar vertebrae. The patient reports greater pain localized in the mid and lower back, substantially impacting daily activities and respiratory function. Her oxygen saturation reaches concerning levels, compelling her under continuous oxygen therapy, typically at 2 liters, though still experiencing low levels and tachycardia symptoms, managed under photographer aerial, pulmonology and PCP supervision. She attempted intermittent use of back bracing but had to discontinue to do breathing difficulties. She continues to endorse increase in pain with coughing, sneezing, and most movements especially extending backwards or trying to sit upright. Pain presents a substantial impact on her mobility and respiratory comfort. Despite awareness and discussions surrounding procedural intervention for her spinal health such as SpineJack procedure vs kyphoplasty, decisions await comprehensive evaluations to ensure her cardiac, pulmonary and anesthetic tolerance given her systemic health complexities. PRIOR: The patient is a 49-year-old female presenting with back pain and compression fractures. The symptoms began at the end of August following episodes of coughing, without accompanying trauma. The patient is experiencing debilitating pain affecting her mobility and quality of life, having been mostly wheelchair and bedridden for the past month due to weakness and inability to stand or walk. She reports her back pain as localized to the area of lower thoracic and lumbar areas. Her medical history includes interstitial lung disease, necessitating oxygen dependence, and long-term usage of prednisone, initially at a higher dose but now tapered to 10 mg. There is potential that bone fragility from chronic corticosteroid use has led to or exacerbated the compression fractures. Her childhood history of seizures was noted; however, she has not experienced seizures in her adult life. The patient has undertaken no surgical treatments or injections for her spinal issues to date. Though she has yet to utilize a back brace, she has expressed interest in this option for lumbar support and pain relief. Pain currently disrupts her sleep, particularly when repositioning. - Onset: End august - Quality: Persistent, significant pain, localized in the back - Primary Location: Area of compression fractures in the back - Exacerbating Factors: Coughing, movement-related activities - Relieving Factors: Not specifically mentioned - Impact on Activities: Inability to stand, mobility significantly impaired, issues with sleep due to pain while turning - Affect: Pain has led to increased bedridden time and compromised mobility - Analgesia: Currently taking cyclobenzaprine; pain continues to severely impact functioning - Adverse Effects: None mentioned - Activities of Daily Living: Severely impaired with bedridden state for the past month; difficulty standing and performing basic activities - Aberrant Drug Related Behaviors: None reported [facility] Medical History ILD (interstitial lung disease) Supplemental oxygen dependent Pneumomediastinum Breast cancer screening by mammogram Overweight (BMI 25.0-29.9) Abnormal CT scan, chest Hemorrhoids with complication Colon cancer screening Generalized abdominal pain Visual impairment Duodenal ulcer GERD (gastroesophageal reflux disease) Obesity (BMI 30-39.9) Menometrorrhagia Seizure in childhood Sclerosing mesenteritis GERD without esophagitis Surgical History History of esophagogastroduodenoscopy (EGD) Hx of colonoscopy Hx of cholecystectomy (~2005) Hx of hysterectomy Hx of section Family History Father Myocardial infarct CVA (cerebral vascular accident) Mother No problems noted. Daughter No problems noted. Son No problems noted. Brother Substance abuse Social History Household Members: Family Housing: Apartment Do you presently have visiting nurse or other home services: No Alcohol intake: never Patient Tobacco Use Status: Never used Tobacco Tobacco use type: Cigarette e-Cigarette/Vaping Use: Never Used Second Hand Smoke Exposure: No service: No Current occupational status: employed and unemployed Current occupation: [employer] Cognitive needs: No Hearing needs: No Vision needs: No Review of Systems Const All systems reviewed & are unremarkable except as noted in HPI and below Physical Exam Vital Signs: Last Vital Signs Pulse 139 H 12/05/24 15:17 BP 113/77 12/05/24 15:17 Pulse Ox 84 L 12/05/24 15:17 Oxygen Delivery Method Nasal Cannula 12/05/24 15:17 Oxygen Flow Rate 2 12/05/24 15:17 BMI result Body Mass Index 23.6 General: Appears afebrile. Moderate distress due to pain. Alert and oriented. Mood and affect appropriate. Follows and participates in conversation appropriately. Respiratory effort is unlabored. No cough. O2 dependant. Dyspnea noted. Able to transition from sit to stand for short duration with assistance. Unable to walk due to significant pain and weakness. Arrived via wheelchair, sitting moderately uncomfortable due to back pain. General: Yes no CVA tenderness Back/Spine/Pelvis Other: Unable to perform back exam due to significant mid and lower back pain, easily reproduced with minimal lumbar extension, flexion reproduces moderate and extension moderately-severe pain. Mild to moderate TTP in lower thoracic and lumbar spine. Back: no CVA tenderness and back tenderness Cervical Spine: cervical ROM normal, cervical muscular tenderness and No Cervical spine tenderness Thoracic/Lumbar Spine: thoracic and lumbar spine normal to inspection, No Thoracic/lumbar spine scar(s), Lasegue's sign negative, straight leg raise negative bilaterally, pain with thoraco-lumbar ROM, paraspinal muscle tenderness, thoraco-lumbar ROM limited, Thoracic/lumbar scoliosis, thoracic spinal tenderness (lower thoracic) and lumbar spinal tenderness at L2, at L3, at L4 and at L5 Pelvis: buttock tenderness bilaterally Sacroiliac joints: bilaterally tender to palpation Results Reviewed Results Reviewed: XR LUMBOSACRAL SPINE 09/22/24 CLINICAL INFORMATION: lower back pain. fracture? COMPARISON: August 01, 2019. TECHNIQUE: Three views of the lumbosacral spine. FINDINGS: Superior endplate compression deformity representing 30% volume loss at L2. Sclerotic superior compression deformity representing 20% volume loss at L3. Superior endplate compression deformity representing 20% volume loss at L5. Multiple likely osteoporotic compression deformities in the lower thoracic spine. Levoconvex rotoscoliosis versus positioning. Vascular clips right upper quadrant abdomen. IMPRESSION: Multiple compression fracture deformities throughout the thoracic and lumbar spine the possibility of acute to subacute fracture at L3 should be considered in the correct clinical settings. MR THORACIC SPINE WITHOUT GADOLINIUM 11/19/24 Comparison: None Findings: Normal alignment. Acute mild superior endplate compression deformities in T11 and T12. Chronic mild compression fractures in T3, T5, T6, T7, T9 and T10. Thoracic cord normal size and signal. No significant disc displacement. No spinal or foraminal stenosis. Paraspinous musculature intact. IMPRESSION: 1. Mild acute compression fractures in T11 and T12 with no significant bony retropulsion. 2. Mild chronic compression fractures in T3, T5, T6, T7, T9 and T10. MRI LUMBAR SPINE WITHOUT CONTRAST 11/19/24 Comparison: None Findings: The vertebral bodies are in satisfactory alignment. Acute mild superior endplate compression deformity in L4. Mild chronic compression deformities in L2, L3 and L5. Conus medullaris and cauda equina unremarkable. T12-L1: Unremarkable L1-2: Unremarkable L2-3: Unremarkable L3-4: Unremarkable L4-5: Shallow disc displacement. No significant spinal or foraminal stenosis. L5-S1: Mild disc bulge. No significant spinal or foraminal stenosis. Visualized retroperitoneum unremarkable. Paraspinous muscles unremarkable. Impression: 1. Mild acute L4 compression fracture. 2. Mild chronic compression fractures in L2, L3 and L5. 3. Mild disc disease L4-5 and L5-S1. 4. No significant spinal or foraminal stenosis. Assessment & Plan Assessment & Plan (1) Vertebral compression fracture: Code(s): M48.50XA - Collapsed vertebra, not elsewhere classified, site unspecified, initial encounter for fracture Category: Medical (2) Back pain: Code(s): M54.9 - Dorsalgia, unspecified Category: Medical (3) Osteoporosis: Code(s): M81.0 - Age-related osteoporosis without current pathological fracture Category: Medical (4) Lumbar degenerative disc disease: Code(s): M51.369 - Other intervertebral disc degeneration, lumbar region without mention of lumbar back pain or lower extremity pain Category: Medical (5) Spondylosis of thoracolumbar spine: Code(s): M47.815 - Spondylosis without myelopathy or radiculopathy, thoracolumbar region Category: Medical Plan Lumbar and thoracic MRI results were discussed with patient and her family today. Schedule T11, T12, and L4 Spine Wil procedure with sedation and fluoroscopy to address new and acute compression fractures and disabling mid and low back pain. Given the complexities of her medical condition, a cardiac and pulmonary evaluation is necessary for anesthesia tolerance. The patient understands and consented to preparation for the procedure pending comprehensive clearance. We will sustain frequent dialog with her photographer aerial/manager of business to adjust and optimize her current pain and oxygen therapy, strategically progressing her intervention as appropriate evaluations are complete. Patient reports she was seen by photographer aerial yesterday and was prescribed ivabradine 5 mg twice a day which she has not started as of yet. Patient was encouraged to seek medical evaluation in emergency care giving significant tachycardia with hypoxia and dyspnea. She has declined and has increased her oxygen supplementation and reports she will warehouse order picker her new medication from pharmacy today. All questions and concerns have been answered and patient agreed with the treatment plan. Follow-up after procedure and sooner as needed. Patient was informed and verbally consented to the use of an ambient scribe for clinic note documentation during this visit. Patient Instructions: I reviewed recent thoracic and lumbar MRI results with patient and her family today, addressing the patient's current condition, confirming the presence of new and chronic compression fractures. We discussed the option of kyphoplasty vs SpineJack psrocedure, emphasizing its potential to alleviate the patient's profound pain. I addressed the necessity for cardiac and pulmonology evaluations given her health history. The potential risks and benefits were communicated clearly, and the patient consented to further evaluation. Queries regarding post-operative care and discharge timelines, including same-day potential, were answered. The patient was advised to await correspondence concerning specialist evaluations for procedural clearance. - Await further instructions for cardiac and pulmonary evaluations. - Maintain current oxygen therapy as directed, adjusting flow based on need pulmonology instructions. - Monitor any increase in pain, especially with coughing or sneezing, and report these scenarios for follow-up consultations. - Continue preparing for potential SpineJack procedure, including watching educational materials provided. - Follow up with your photographer aerial/manager of business as scheduled and report any changes in symptoms. Coding Level of Care Code Est Pt Level 4 (28079) Complex EM visit Add On G2211 Diagnoses Vertebral compression fracture M48.50XA Back pain M54.9 Osteoporosis M81.0 Lumbar degenerative disc disease M51.369 Spondylosis of thoracolumbar spine M47.815
[2024-12-05 15:17] VITALS: BP 113/77; PULSE 139; O2SAT 84; BMI 23.6
== END 2024-12-05 15:40 | disposition home or self-care (01) ==
LOC: HO.PMC 15:10
PROVIDERS: PCP Internal Medicine; Visit Provider Nurse Practitioner Family
DX: M48.50XA Collapsed vertebra, not elsewhere classified, site unspecified, initial encounter for fracture (principal); M54.9 Dorsalgia, unspecified; M81.0 Age-related osteoporosis without current pathological fracture; M51.369 Other intervertebral disc degeneration, lumbar region without mention of lumbar back pain or lower extremity pain; M47.815 Spondylosis without myelopathy or radiculopathy, thoracolumbar region
CPT/HCPCS: 99214; G2211

== ENCOUNTER → 2024-12-05 15:09 | Outpatient (BNVA) | payer OTHER, SELFPAY | PROVIDERS: PCP Internal Medicine; Visit Provider Nurse Practitioner Family | DX: M54.9 Dorsalgia, unspecified (principal); M81.0 Age-related osteoporosis without current pathological fracture; M51.369 Other intervertebral disc degeneration, lumbar region without mention of lumbar back pain or lower extremity pain; M47.815 Spondylosis without myelopathy or radiculopathy, thoracolumbar region; M48.55XA Collapsed vertebra, not elsewhere classified, thoracolumbar region, initial encounter for fracture | CPT/HCPCS: 99212 ==

== ENCOUNTER 2024-12-06 13:29 | Outpatient (REF) | payer OTHER, SELFPAY ==
--- NOTE | ~2024-12-06 | MM_ITS ---
EXAMINATION: DXA BONE DENSITY AXIAL HISTORY: M48.50XA - Collapsed vertebra, not elsewhere classified, site unspecified... TECHNIQUE: R&V Dual energy absorptiometry (DEXA) of the lumbar spine, total left hip, and femoral neck was performed. COMPARISON: There are no prior studies for comparison. FINDINGS: The bone mineral density of the lumbar spine is 1.016, corresponding to a T-score of -1.4, and a Z-score of -0.8. This is indicative of osteopenia. The bone mineral density of the left total hip is 0.739, corresponding to a T-score of -2.1, and a Z-score of -1.5. This is indicative of osteopenia. The bone mineral density of the left femoral neck is 0.750, corresponding to a T-score of -2.1, and a Z-score of -1.2. This is indicative of osteopenia. FRACTURE RISK: The FRAX index suggests a risk of major osteoporotic fracture of 5.0%, and of hip fracture 0.9%. MM/XR DEXA axial skeleton IMPRESSION: Based on bone mineral density, and according to World Health Organization (WHO) criteria, the diagnosis is consistent with osteopenia. All bone density values are in grams per centimeter squared (g/cm2). Statistically, 68% of repeat scans fall within 1 SD (+/- 0.010 g/cm2 for AP spine L1-L4) and 1 SD (+/- 0.012 g/cm2 for femur total) FRAX is a trademark of the [employer] [facility] [employer], a World Health Organization (WHO) Collaborating Center. Electronically signed by: Jerod Anderson MD 12/06/2024 03:13 PM EDT
== END 2024-12-06 13:30 | disposition home or self-care (01) ==
LOC: HO.MAMMO 13:29
PROVIDERS: PCP Internal Medicine; Visit Provider Nurse Practitioner Family
DX: M81.0 Age-related osteoporosis without current pathological fracture (principal)
CPT/HCPCS: 77080

== ENCOUNTER → 2024-12-06 14:30 | Outpatient (BNV) | payer OTHER, SELFPAY | PROVIDERS: PCP Internal Medicine; Visit Provider Radiology Diagnostic Radiology | DX: E28.39 Other primary ovarian failure (principal) | CPT/HCPCS: 77080 ==

== ENCOUNTER 2024-12-13 11:05 | Outpatient (REF) | payer OTHER, SELFPAY ==
[2024-12-13 11:20] LABS: MANUAL DIFF FLAG NO
[2024-12-13 11:32] LABS: Basophils Absolute Auto 0.1 X10*3/uL (0.0-0.2); Basophils Percent Auto 0.8 % (0-2); Eosinophils Absolute Auto 0.1 X10*3/uL (0.0-0.4); Eosinophils Percent Auto 1.3 % (0-4); Hematocrit 41.1 % (37.0-47.0); Imm Gran Abs Auto 0.06 X10*3/uL (0.00-0.03); Lymphocytes Absolute Auto 2.2 X10*3/uL (1.2-4.9); Lymphocytes Percent Auto 36.3 % (20-40); Mean Corpuscular HGB Conc 31.6 g/dl (31.0-35.0); Mean Corpuscular Hemoglobin 27.9 pg (27.0-33.0); Mean Corpuscular Volume 88.2 fL (80.0-98.0); Mean Platelet Volume 10.7 fL (9.4-12.3); Monocytes Absolute Auto 0.7 X10*3/uL (0.1-1.2); Monocytes Percent Auto 12.5 % (2-11); Neutrophils Absolute Auto 2.9 x10*3/uL (2.0-8.3); Neutrophils Percent Auto 48.1 % (45-73); Platelet Count 288 X10*3/uL (160-400); Red Blood Count 4.66 X10*6/uL (4.20-5.50); Red Cell Distribution Width 14.9 % (11.0-16.0); White Blood Count 5.9 X10*3/uL (4.8-10.8)
[2024-12-13 12:16] LABS: Alanine Aminotransferase 60 U/L (0-31); Albumin Level 3.4 g/dL (3.5-5.0); Alkaline Phosphatase 130 U/L (39-117); Anion Gap 9 (12-20); Aspartate Amino Transferase 47 U/L (5-31); Bilirubin Total 0.3 mg/dL (0.0-1.0); Blood Urea Nitrogen 13 mg/dL (9-16); Calcium 9.8 mg/dL (8.4-10.2); Carbon Dioxide 28 mmol/L (22-29); Chloride 107 mmol/L (96-108); Cholesterol 141 mg/dL (<200); Estimated Glomerular Filt Rate > 60; Glucose Random 78 mg/dL (60-115); HDL Cholesterol 36 mg/dL (>40); LDL Cholesterol Calculated 87 mg/dL (<100); Potassium 3.6 mmol/L (3.3-5.1); Sodium 140 mmol/L (135-145); Total Protein 9.1 g/dL (6.5-8.0); Triglycerides 91 mg/dL (<150)
[2024-12-13 12:35] LABS: Folate 12.4 ng/mL (> or = 4.0); Vitamin B12 557 pg/mL (200-900)
[2024-12-13 12:37] LABS: Thyroid Stimulating Hormone 1.65 uIU/mL (0.32-4.0); Vitamin D 25-OH Total 22.2 ng/mL (>30)
== END 2024-12-13 11:06 | disposition home or self-care (01) ==
LOC: HO.LAB 11:05
PROVIDERS: PCP Internal Medicine; Visit Provider Internal Medicine
DX: J84.9 Interstitial pulmonary disease, unspecified (principal); E78.00 Pure hypercholesterolemia, unspecified
CPT/HCPCS: 36415; 80053; 80061; 82306; 82607; 82746; 84439; 84443; 85025

== ENCOUNTER 2024-12-18 12:32 | Outpatient (AMB) | payer OTHER, SELFPAY ==
[2024-12-18 12:35] VITALS: BP 102/70; PULSE 139; TEMP 36.4; O2SAT 93; BMI 23.6
--- NOTE | 2024-12-18 12:35 | MHC.PC.OV ---
Vital Signs 12/18/24 12:35 Height 5 ft 1 in Weight 125 lb BMI 23.6 BP 102/70 Blood Pressure Location Lt brachial Position Sitting Pulse 139 H Pulse Source Pulse Oximeter Temp 97.5 F Temp Source Temporal Artery Scan Pulse Oximetry (%) 93 Oxygen Delivery Method Nasal Cannula Oxygen Flow Rate 3 Intake Visit Reasons: ILD- redo PHQ-9 missing MD samuel/ros plan. Child Development Director Required: Yes Child Development Director Language: Cymro Accompanied by: Mother Allergies No Known Allergies (No Known Allergies*) Allergy (Verified 12/18/24 12:48) Medication List - Last Reconciled 12/18/24 by Nolberto Garcia MD back brace As directed calcium carbonate-vitamin D3 600 mg-20 mcg (800 unit) (Caltrate plus D) 1 tab PO DAILY cholecalciferol (vitamin D3) 125 mcg PO DAILY compressor, for nebulizer As directed cyclobenzaprine 10 mg PO BID PRN doxycycline hyclate 20 mg PO BID ferrous sulfate 325 mg PO DAILY 90 days itraconazole 200 mg (20 mL) PO DAILY 7 days levalbuterol HCl 1.25 mg (3 mL) inhalation Q4H PRN metronidazole 0.75% 1 appl topical BEDTIME PRN nebulizers As directed nystatin 5 mL PO TID 7 days omeprazole 20 mg PO DAILY@0630 Oxygen Home Use As directed prednisone 7.5 mg (3 x 2.5 mg) PO DAILY 30 days trazodone 50 mg PO BEDTIME PRN Tobacco use date assessed: 12/18/24 Dental Screening Dental Screen Date: 12/18/24 Did you have a dental visit in the last 12 months?: Yes Did you have a dental problem in the last 6 months where you did not have access to dental care?: No Was dental information given to patient?: Patient has dentist HPI ILD- redo PHQ-9 missing f/ros plan. HPI Details [id number] Medical History ILD (interstitial lung disease) Supplemental oxygen dependent Pneumomediastinum Breast cancer screening by mammogram Overweight (BMI 25.0-29.9) Abnormal CT scan, chest Hemorrhoids with complication Colon cancer screening Generalized abdominal pain Visual impairment Duodenal ulcer GERD (gastroesophageal reflux disease) Obesity (BMI 30-39.9) Menometrorrhagia Seizure in childhood Sclerosing mesenteritis GERD without esophagitis Surgical History History of esophagogastroduodenoscopy (EGD) Hx of colonoscopy Hx of cholecystectomy (~2005) Hx of hysterectomy Hx of section Family History Father Myocardial infarct CVA (cerebral vascular accident) Mother No problems noted. Daughter No problems noted. Son No problems noted. Brother Substance abuse Social History Household Members: Family Housing: Apartment Do you presently have visiting nurse or other home services: No Alcohol intake: never Patient Tobacco Use Status: Never used Tobacco Tobacco use type: Cigarette e-Cigarette/Vaping Use: Never Used Second Hand Smoke Exposure: No service: No Current occupational status: employed and unemployed Current occupation: [employer] Cognitive needs: No Hearing needs: No Vision needs: No Questionnaire PHQ-9 Over the last 2 weeks, how often have you been bothered by any of the following problems? 1. Little interest or pleasure in doing things: nearly every day 2. Feeling down, depressed, or hopeless: nearly every day 3. Trouble falling or staying asleep, or sleeping too much: more than half the days 4. Feeling tired or having little energy: nearly every day 5. Poor appetite or overeating: not at all 6. Feeling bad about yourself - or that you are a failure or have let yourself or your family down: more than half the days 7. Trouble concentrating on things, such as reading the newspaper or watching television: not at all 8. Moving or speaking so slowly that other people could have noticed. Or the opposite - being so fidgety or restless that you have been moving around a lot more than usual: not at all 9. Thoughts that you would be better off or of hurting yourself in some way: not at all Total score: 13 Depression Screening Interpretation: Positive Depression Screening Done: Yes 72514 - PHQ-9 Billing: Yes Source: Developed by Drs. Jerod Grover, Heather Bennett, Georgi Contreras and colleagues, with an educational cristal from [employer]. Thrive Questionnaire Date Thrive assessed: 12/18/24 I am a: Patient What is your living situation today?: I have a steady place to live Within the past 12 months, did the food you bought not last and you didn't have the money to get more?: Sometimes True Within the past 12 months, did you worry whether your food would run out before you got money to buy more?: Sometimes True Do you have trouble paying for medicines?: Yes Do you have trouble getting transportation to medical appointments?: No Do you have trouble paying your heating and electricity bill?: Yes Do you have trouble taking care of your child, family member or friend?: No Do you have trouble with day-to-day activities such as bathing, preparing meals, shopping, managing finances, etc.?: Yes Are you currently unemployed and looking for a job?: Yes Are you interested in more education?: Yes Currently or been in a relationship where the following occur: No concerns reported THRIVE Score: 3 AUDIT C Alcohol Use Questionnaire (AUDIT-C) 1. How often do you have a drink containing alcohol?: Never 3. How often do you have six or more drinks on one occasion?: Never Total Score: 0 YSABEL-7 AMB Questionnaire YSABEL-7 Date YSABEL - 7 assessed: 12/18/24 Feeling nervous, anxious, or on edge: 1 = Several days Not being able to stop or control worryin = More than half the days Worrying too much about different things: 3 = Nearly every day Trouble relaxin = Nearly every day Being so restless that it is hard to sit still: 2 = More than half the days Becoming easily annoyed or irritable: 2 = More than half the days Feeling afraid as if something awful might happen: 1 = Several days Total YSABEL-7 score (0-4 normal; 5-9 mild; 10-14 moderate; 15-21 severe): 14 Source: Developed by Drs. Jerod Grover, Heather Bennett, Georgi Contreras and colleagues, with an educational cristal from [employer]. Physical exam (Primary Care) Vital Signs: Last Vital Signs Temp 97.5 F 12/18/24 12:35 Pulse 139 H 12/18/24 12:35 BP 102/70 12/18/24 12:35 Pulse Ox 93 12/18/24 12:35 Oxygen Delivery Method Nasal Cannula 12/18/24 12:35 Oxygen Flow Rate 3 12/18/24 12:35 BMI result Body Mass Index 23.6 Tobacco/Smoking Status: Tobacco use Status Tobacco use date assessed 12/18/24 12/18/24 12:40 Patient Tobacco Use Status Never used Tobacco 12/18/24 12:36 Tobacco use type Cigarette 12/18/24 12:36 e-Cigarette/Vaping Use Never Used 12/18/24 12:36 Depression Screening Interpretation: Positive Thrive Assessment: Date of Thrive Assessment Date Thrive assessed 12/18/24 12/18/24 12:40 Currently or been in a relationship where the following occur: No concerns reported Const General: alert; No acute distress Eyes Conjunctivae: conjunctivae normal Resp Auscultation: clear to auscultation bilaterally Cardio Rate: regular rate Rhythm: regular rhythm GI Inspection: Yes normal to inspection Extrem General: Yes normal to inspection and No edema Coding Level of Care Code Est Pt Level 4 (36366) Complex EM visit Add On G2211 Diagnoses Esophageal candidiasis B37.81 Vertebral compression fracture M48.50XA ILD (interstitial lung disease) J84.9 Crohn's disease of colon K50.10 Gastroesophageal reflux disease without esophagitis K21.9 Esophagitis presence: without esophagitis Osteoporosis M81.0 Generalized anxiety disorder F41.1 Major depression F32.9 Additional Codes PHQ-9 - 33789 - PHQ-9 Billing: Yes ([id number]) Assessment & Plan Assessment & Plan (1) Esophageal candidiasis: Code(s): B37.81 - Candidal esophagitis Category: Medical Plan: Patient was treated with antifungal (2) Vertebral compression fracture: Code(s): M48.50XA - Collapsed vertebra, not elsewhere classified, site unspecified, initial encounter for fracture Category: Medical Plan: Planned procedure for the spine but would ask Pulmonary and Cardiology clearance (3) ILD (interstitial lung disease): Code(s): J84.9 - Interstitial pulmonary disease, unspecified Category: Medical Plan: Patient follows up with Pulmonary and has been on steroids prednisone (4) Crohn's disease of colon: Code(s): K50.10 - Crohn's disease of large intestine without complications Category: Medical Plan: Continue to follow up with Gastroenterology on omeprazole (5) GERD (gastroesophageal reflux disease): Code(s): K21.9 - Gastro-esophageal reflux disease without esophagitis Category: Medical Qualifiers: Esophagitis presence: without esophagitis Qualified Code(s): K21.9 - Gastro-esophageal reflux disease without esophagitis Plan: Avoid the foods that causes that usually spicy foods, tomato products, juices, coffee, soda and foods that your sensitive to. After eating do not lie down, allow 3-4 hours before in lie down. And keep the head of bed above 30 degrees to avoid the acid from going up. (6) Osteoporosis: Code(s): M81.0 - Age-related osteoporosis without current pathological fracture Category: Medical Plan: Discussed about calcium and vitamin-D and will be seeing endocrinology also. (7) Generalized anxiety disorder: Code(s): F41.1 - Generalized anxiety disorder Category: Medical (8) Major depression: Code(s): F32.9 - Major depressive disorder, single episode, unspecified Category: Medical Plan History of Present Illness The patient is a 49-year-old female presenting for a follow-up visit. She has a history of interstitial lung disease and has been sent for pulmonary rehabilitation. Her last pulmonary follow-up was on November 14, 2024, and she is currently on steroids with a plan to titrate down the dosage. The patient also has generalized anxiety disorder, for which she is not currently seeing a counselor and has declined counseling services. She has Crohn's disease of the colon and continues to follow up with gastroenterology, currently on omeprazole for reflux management. The patient has IgA nephropathy, though specific details regarding current management were not discussed. She has a history of vertebral compression fracture and osteoporosis, with a bone density test on December 06 showing osteopenia in the lumbar spine and hip. She has been advised to have a T11-12 L4 spine anthony procedure pending pulmonary and cardiology clearance. The patient was recently treated for oral candidiasis with antifungal medication. Health Maintenance - Bone density test on December 06 showed osteopenia in the lumbar spine and hip. - Discussed calcium and vitamin D supplementation and follow-up with endocrinology. Social History Review of Systems Physical Exam Results - Labs: Normal electrolytes, normal renal function, normal blood sugar, elevated liver function tests, LDL cholesterol 87 mg/dL. - Tests: Bone density test on December 06 showed osteopenia in the lumbar spine and hip. Plan The patient will continue pulmonary rehabilitation for interstitial lung disease and follow up with pulmonary specialists. Steroid therapy will be titrated down as tolerated. For generalized anxiety disorder, the patient has declined counseling services, but referrals to psychiatric nursing and counseling have been considered. Management of Crohn's disease will continue with gastroenterology, and the patient is currently on omeprazole for reflux. The patient is advised to obtain pulmonary and cardiology clearance for the planned -12 L4 spine anthony procedure. Endocrinology follow-up is planned for osteoporosis management, with discussions on calcium and vitamin D supplementation. Patient was informed and verbally consented to the use of an ambient scribe for clinic note documentation during this visit. Discussion Notes I discussed with the patient the importance of continuing pulmonary rehabilitation and the plan to titrate down steroid therapy for interstitial lung disease. We reviewed the need for pulmonary and cardiology clearance before proceeding with the spine anthony procedure. I also addressed the management of Crohn's disease with ongoing gastroenterology follow-up and omeprazole use. For osteoporosis, we discussed the results of the bone density test and the need for calcium and vitamin D supplementation, with a follow-up planned with endocrinology. Patient Instructions - Continue pulmonary rehabilitation as scheduled. - Follow up with pulmonary specialists and titrate down steroid therapy as advised. - Obtain pulmonary and cardiology clearance before the spine anthony procedure. - Continue omeprazole for reflux management and follow up with gastroenterology. - Follow up with endocrinology for osteoporosis management and discuss calcium and vitamin D supplementation. Orders: Referrals Psychiatry Outpatient Consultation Service F32.9 - Major depressive disorder, single episode, unspecified Psychiatry Referral F32.9 - Major depressive disorder, single episode, unspecified Medications: New trazodone 50 mg PO BEDTIME PRN 90 tabs 0RF insomnia F32.9 - Major depressive disorder, single episode, unspecified Discontinued itraconazole administer on an empty stomach Discontinued Reason: Patient Completed Course 200 mg (20 mL) PO DAILY 7 days 140 mL 0RF B37.0 - Candidal stomatitis nystatin swish and swallow Discontinued Reason: Doctor's Order 5 mL PO TID 7 days 105 mL 0RF
== END 2024-12-18 13:13 | disposition home or self-care (01) ==
LOC: HO.HMCH 12:33
PROVIDERS: PCP Internal Medicine; Visit Provider Internal Medicine
DX: B37.81 Candidal esophagitis (principal); M48.50XA Collapsed vertebra, not elsewhere classified, site unspecified, initial encounter for fracture; J84.9 Interstitial pulmonary disease, unspecified; K50.10 Crohn's disease of large intestine without complications; K21.9 Gastro-esophageal reflux disease without esophagitis; M81.0 Age-related osteoporosis without current pathological fracture; F41.1 Generalized anxiety disorder; F32.9 Major depressive disorder, single episode, unspecified

== ENCOUNTER → 2024-12-18 12:32 | Outpatient (BNVA) | payer OTHER, SELFPAY | PROVIDERS: PCP Internal Medicine; Visit Provider Internal Medicine | DX: B37.81 Candidal esophagitis (principal); J84.9 Interstitial pulmonary disease, unspecified; K50.10 Crohn's disease of large intestine without complications; K21.9 Gastro-esophageal reflux disease without esophagitis; M81.0 Age-related osteoporosis without current pathological fracture; F41.1 Generalized anxiety disorder; F32.9 Major depressive disorder, single episode, unspecified; K50.90 Crohn's disease, unspecified, without complications; B37.0 Candidal stomatitis; M48.50XA Collapsed vertebra, not elsewhere classified, site unspecified, initial encounter for fracture; X58.XXXA Exposure to other specified factors, initial encounter; Y93.9 Activity, unspecified; Y92.9 Unspecified place or not applicable; Y99.9 Unspecified external cause status | CPT/HCPCS: 96127; 99212 ==

== ENCOUNTER 2024-12-20 13:45 | Outpatient (AMB) | payer OTHER, SELFPAY ==
--- NOTE | 2024-12-20 14:04 | A.OFFVIS_ITS ---
Vital Signs 12/20/24 14:08 Height 5 ft 1.77 in Weight 136 lb 7.458 oz BMI 25.1 BP 100/70 Blood Pressure Location Lt brachial Position Sitting Pulse 102 H Pulse Source Pulse Oximeter Intake Visit Reasons: Osteoporosis Intake Note: New patient internally referred by PCP to establish care for Osteoporosis. [place] [facility] [place] Border Patrol Officer Required: Yes Border Patrol Officer Language: Manager Services Services: Border Patrol Officer Present Border Patrol Officer [place] [facility] Information Interpreted: non-clinical & clinical Accompanied by: Mother Allergies No Known Allergies (No Known Allergies*) Allergy (Verified 12/20/24 14:09) Medication List - Last Reconciled 12/20/24 by Jerod Urrutia MD back brace As directed calcium carbonate-vitamin D3 600 mg-20 mcg (800 unit) (Caltrate plus D) 1 tab PO DAILY cholecalciferol (vitamin D3) 125 mcg PO DAILY compressor, for nebulizer As directed cyclobenzaprine 10 mg PO BID PRN ferrous sulfate 325 mg PO DAILY 90 days ivabradine 5 mg PO BID levalbuterol HCl 1.25 mg (3 mL) inhalation Q4H PRN metronidazole 0.75% 1 appl topical BEDTIME PRN nebulizers As directed omeprazole 20 mg PO DAILY@0630 Oxygen Home Use As directed prednisone 7.5 mg (3 x 2.5 mg) PO DAILY 30 days trazodone 50 mg PO BEDTIME PRN HPI Comments Details: 49 YO Female with PMHx interstitial lng dx /steroid dependency is seen in consultation at the request of PCP for Osteoporosis. The patient is a 49-year-old female presenting with osteoporosis and compression fractures in the spine. The osteoporosis was identified more than two months ago, and the fractures were attributed to coughing due to chronic steroid use for lung disease. The patient has not previously seen a specialist for osteoporosis and has not received treatment for it before this visit. The patient is on chronic steroid therapy for lung disease, which has contributed to the development of osteoporosis. She has been advised to take calcium and vitamin D supplements, with a recent increase in vitamin D dosage to 5000 IU due to low blood levels. The patient denies any history of kidney stones and reports no family history of osteoporosis or hip fractures. First diagnosed in 2 mos ago .Not seen specialist before Never Received treatment in the past Has history of pathologic fracture in thoraic spine from coughing no ONJ. Has several servings of dietary calcium per day in the form of cheese, milk, cereal . Takes Calcium supplement 600 mg daily . Takes 800 IU of Vitamin D daily and 5000 IU daily since 3 wks a go . Takes PPI,- anticoagulant, -antiepileptic but takes glucocorticoid medication. Not Does weight bearing exercise . The patient is considering engaging in weight-bearing exercises but is awaiting approval due to concerns about fractures. 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 Menopause hysterecomy 3 yrs ag0 Denies history of Kidney stones: Denies family history of Osteoporosis or hip fracture. UTD on dental cleanings and sees dentist every 6 months. has planned upcoming dental work root canal no extractions. No tobacco use or heavy ETOH use DXA dated 12/06/24 : EXAMINATION: DXA BONE DENSITY AXIAL HISTORY: M48.50XA - Collapsed vertebra, not elsewhere classified, site unspecified... TECHNIQUE: [employer] Dual energy absorptiometry (DEXA) of the lumbar spine, total left hip, and femoral neck was performed. COMPARISON: There are no prior studies for comparison. FINDINGS: The bone mineral density of the lumbar spine is 1.016, corresponding to a T-score of -1.4, and a Z-score of -0.8. This is indicative of osteopenia. The bone mineral density of the left total hip is 0.739, corresponding to a T-score of -2.1, and a Z-score of -1.5. This is indicative of osteopenia. The bone mineral density of the left femoral neck is 0.750, corresponding to a T-score of -2.1, and a Z-score of -1.2. This is indicative of osteopenia. FRACTURE RISK: The FRAX index suggests a risk of major osteoporotic fracture of 5.0%, and of hip fracture 0.9%. MM/XR DEXA axial skeleton IMPRESSION: Based on bone mineral density, and according to World Health Organization (WHO) criteria, the diagnosis is consistent with osteopenia. Labs: [facility] Medical History ILD (interstitial lung disease) Supplemental oxygen dependent Pneumomediastinum Breast cancer screening by mammogram Overweight (BMI 25.0-29.9) Abnormal CT scan, chest Hemorrhoids with complication Colon cancer screening Generalized abdominal pain Visual impairment Duodenal ulcer GERD (gastroesophageal reflux disease) Obesity (BMI 30-39.9) Menometrorrhagia Seizure in childhood Sclerosing mesenteritis GERD without esophagitis Surgical History History of esophagogastroduodenoscopy (EGD) Hx of colonoscopy Hx of cholecystectomy (~2005) Hx of hysterectomy Hx of section Family History Father Myocardial infarct CVA (cerebral vascular accident) Mother No problems noted. Daughter No problems noted. Son No problems noted. Brother Substance abuse Social History Household Members: Family Housing: Apartment Do you presently have visiting nurse or other home services: No Alcohol intake: never Patient Tobacco Use Status: Never used Tobacco Tobacco use type: Cigarette e-Cigarette/Vaping Use: Never Used Second Hand Smoke Exposure: No service: No Current occupational status: employed and unemployed Current occupation: [employer] Cognitive needs: No Hearing needs: No Vision needs: No Physical Exam Vital Signs: Last Vital Signs Pulse 102 H 12/20/24 14:08 BP 100/70 12/20/24 14:08 BMI result Body Mass Index 25.1 Assessment & Plan Assessment & Plan (1) Osteoporosis: Code(s): M81.0 - Age-related osteoporosis without current pathological fracture Category: Medical Plan: This is a 49-year-old female with a history of chronic steroid dependency and multiple compression fractures of the thoracic spine. Partial secondary workup has been performed Plan is to complete the secondary workup by checking a phosphorous, 24 hour urine for calcium and creatinine, 25 hydroxy vitamin-D repeat and urine immunofixation in . Continue calcium and vitamin-D supplementation. Once vitamin-D was replete and secondary workup is completed, would strongly consider the use of anabolic agent for glucocorticoid induced osteoporosis should just Tymlos or Forteo to be proceeded by anti resorptive agent 1. Osteoporosis The patient has osteoporosis with compression fractures in the spine, likely exacerbated by chronic steroid use for lung disease. A comprehensive workup including blood and urine tests is planned to rule out other conditions mimicking osteoporosis. The patient is advised to continue calcium and vitamin D supplementation. Treatment options include antiresorptive therapy and anabolic agents, with a focus on building bone density and strength. Follow-up in two months is planned to reassess and initiate appropriate therapy. I discussed with the patient the importance of managing osteoporosis, especially given the compression fractures in her spine. We reviewed the role of calcium and vitamin D supplementation and the need for a comprehensive workup to exclude other conditions. I explained the treatment options, including antiresorptive therapy and anabolic agents, and the importance of building bone density and strength. We also discussed the potential challenges with insurance coverage for certain medications and the need for follow-up in two months to reassess and initiate therapy. - Continue taking calcium and vitamin D supplements as prescribed. - Schedule and complete the blood and urine tests as instructed. - Avoid strenuous exercise until further notice. - The patient had an opportunity to ask questions regarding treatment plan. The patient expressed understanding and agreement with the above treatment plan. Patient was informed and verbally consented to the use of an ambient scribe for clinic note documentation during this visit. Orders: Orders Phosphorus 4 Weeks M81.0 - Age-related osteoporosis without current pathological fracture Creatinine, 24 Hr Group 4 Weeks M81.0 - Age-related osteoporosis without current pathological fracture Vitamin D 25-OH Total 4 Weeks M81.0 - Age-related osteoporosis without current pathological fracture Calcium, 24 Hr Ur 4 Weeks M81.0 - Age-related osteoporosis without current pathological fracture Immunofixation, Random Urine 4 Weeks M81.0 - Age-related osteoporosis without current pathological fracture Coding Level of Care Code New Pt Level 4 (57255) Diagnoses Osteoporosis M81.0
[2024-12-20 14:08] VITALS: BP 100/70; PULSE 102; BMI 25.1
== END 2024-12-20 15:29 | disposition home or self-care (01) ==
LOC: HO.ENCR 13:46
PROVIDERS: PCP Internal Medicine; Visit Provider Internal Medicine Endocrinology, Diabetes & Metabolism
DX: M81.0 Age-related osteoporosis without current pathological fracture (principal)
CPT/HCPCS: 99204

== ENCOUNTER → 2024-12-20 13:45 | Outpatient (BNVA) | payer OTHER, SELFPAY | PROVIDERS: PCP Internal Medicine; Visit Provider Internal Medicine Endocrinology, Diabetes & Metabolism | DX: M81.0 Age-related osteoporosis without current pathological fracture (principal); Z79.52 Long term (current) use of systemic steroids; J98.8 Other specified respiratory disorders | CPT/HCPCS: 99202 ==

== ENCOUNTER 2025-01-08 14:05 | Outpatient (AMB) | payer OTHER, SELFPAY ==
[2025-01-08 14:48] VITALS: BP 108/62; PULSE 112; O2SAT 92; BMI 26.3
--- NOTE | 2025-01-08 14:48 | A.OFFVIS_ITS ---
Vital Signs 01/08/25 14:48 Height 5 ft 1 in Weight 139 lb BMI 26.3 BP 108/62 Blood Pressure Location Lt brachial Position Sitting Pulse 112 H Pulse Source Pulse Oximeter Pulse Oximetry (%) 92 Oxygen Delivery Method Nasal Cannula Oxygen Flow Rate 3 Intake Visit Reasons: dyspnea Sausage Stringer Required: Yes Sausage Stringer Name: Ava Styles Alan Allergies No Known Allergies (No Known Allergies*) Allergy (Verified 01/08/25 14:57) HPI HPI dyspnea: Details: 48-year-old lady, nonsmoker, w now followed for interstitial lung disease with recent exacerbation requiring admission in high-dose glucocorticoid course, tapered down to prednisone 60 mg daily and completed 3 months of therapy with has returned to baseline respiratory status requiring 2-3 L of supplemental oxygen. After the last office visit patient was titrated down to prednisone 7.5 mg daily with no worsening of underlying respiratory symptoms. [facility] Medical History ILD (interstitial lung disease) Supplemental oxygen dependent Pneumomediastinum Breast cancer screening by mammogram Overweight (BMI 25.0-29.9) Abnormal CT scan, chest Hemorrhoids with complication Colon cancer screening Generalized abdominal pain Visual impairment Duodenal ulcer GERD (gastroesophageal reflux disease) Obesity (BMI 30-39.9) Menometrorrhagia Seizure in childhood Sclerosing mesenteritis GERD without esophagitis Surgical History History of esophagogastroduodenoscopy (EGD) Hx of colonoscopy Hx of cholecystectomy (~2005) Hx of hysterectomy Hx of section Family History Father Myocardial infarct CVA (cerebral vascular accident) Mother No problems noted. Daughter No problems noted. Son No problems noted. Brother Substance abuse Social History Household Members: Family Housing: Apartment Do you presently have visiting nurse or other home services: No Alcohol intake: never Patient Tobacco Use Status: Never used Tobacco Tobacco use type: Cigarette e-Cigarette/Vaping Use: Never Used Second Hand Smoke Exposure: No service: No Current occupational status: employed and unemployed Current occupation: [employer] Cognitive needs: No Hearing needs: No Vision needs: No Review of Systems Const Denies daytime sleepiness, Denies excessive sweating, Denies fatigue, Denies fever(s), Denies lethargy, Denies malaise, Denies night sweats, Denies snoring and Denies weight loss Eyes Denies blurry vision and Denies itchy eyes ENT Denies nasal congestion, Denies post nasal drip, Denies sinus pain, Denies sinus pressure and Denies other ( Thrush) Card Denies chest pain, Denies pedal edema, Denies dyspnea, Reports dyspnea on exertion, Denies orthopnea and Denies paroxysmal nocturnal dyspnea Resp Denies cough, Denies hemoptysis, Denies excessive phlegm production, Denies dyspnea, Reports dyspnea on exertion, Denies snoring and Denies wheezing GI Denies abdominal pain and Denies heartburn Musc Denies myalgias, Denies arthralgias and Denies joint swelling Skin/Breast Denies rash Neuro Denies memory loss and Denies seizure-like activity Psych Denies abnormal sleep pattern, Denies anxiety and Denies memory loss Endo Denies excessive sweating, Denies fatigue and Denies heat intolerance Remy/Lymph Denies easy bruising Aller/Immun Denies itchy eyes, Denies seasonal rhinorrhea and Denies wheezing Physical Exam Vital Signs: Last Vital Signs Pulse 112 H 01/08/25 14:48 BP 108/62 01/08/25 14:48 Pulse Ox 92 01/08/25 14:48 Oxygen Delivery Method Nasal Cannula 01/08/25 14:48 Oxygen Flow Rate 3 01/08/25 14:48 BMI result Body Mass Index 26.3 Const General: no acute distress and alert Nutritional Appearance: not obese Orientation/consciousness: Other orientation findings ( oriented) HEENT Head: Yes atraumatic Eyes General: appearance normal, both eyes and all related structures Sclerae: sclerae normal EOM: EOMs intact bilaterally Neck Neck: Yes supple Lymphatic: no lymphadenopathy noted Resp Effort & Inspection: normal respiratory effort and no use of accessory muscles Auscultation: clear to auscultation bilaterally Cardio Rate: regular rate Rhythm: regular rhythm Heart sounds: no gallops, no murmurs and no rubs Skin General skin exam: other ( warm) Extrem General: No clubbing, No cyanosis and No edema Assessment & Plan Assessment & Plan (1) ILD (interstitial lung disease): Code(s): J84.9 - Interstitial pulmonary disease, unspecified Category: Medical Plan: Now titrated down to prednisone 7.5 mg daily with reasonable symptom control and acceptable side effect profile. Continue current regimen. (2) Supplemental oxygen dependent: Code(s): Z99.81 - Dependence on supplemental oxygen Category: Medical Plan: Continue supplemental oxygen to maintain O2 saturation above 88%. Coding Level of Care Code Est Pt Level 4 (50829) Complex EM visit Add On G2211 Diagnoses ILD (interstitial lung disease) J84.9 Supplemental oxygen dependent Z99.81
== END 2025-01-08 15:14 | disposition home or self-care (01) ==
LOC: HO.HPS 14:06
PROVIDERS: PCP Internal Medicine; Visit Provider Internal Medicine Pulmonary Disease
DX: J84.9 Interstitial pulmonary disease, unspecified (principal); Z99.81 Dependence on supplemental oxygen
CPT/HCPCS: 99214; G2211

== ENCOUNTER → 2025-01-08 14:05 | Outpatient (BNVA) | payer OTHER, SELFPAY | PROVIDERS: PCP Internal Medicine; Visit Provider Internal Medicine Pulmonary Disease | DX: J84.9 Interstitial pulmonary disease, unspecified (principal); Z99.81 Dependence on supplemental oxygen | CPT/HCPCS: 99212 ==

== ENCOUNTER 2025-01-10 12:30 | Outpatient (REF) | payer OTHER, SELFPAY | END 2025-01-10 12:31 | disposition home or self-care (01) | LOC: HO.MAMMO 12:30 | PROVIDERS: PCP Internal Medicine; Visit Provider Internal Medicine | DX: Z12.31 Encounter for screening mammogram for malignant neoplasm of breast (principal) | CPT/HCPCS: 77063; 77067 ==

== ENCOUNTER → 2025-01-10 13:30 | Outpatient (BNV) | payer OTHER, SELFPAY | PROVIDERS: PCP Internal Medicine; Visit Provider Radiology Body Imaging | DX: Z12.31 Encounter for screening mammogram for malignant neoplasm of breast (principal) | CPT/HCPCS: 77063; 77067 ==

== ENCOUNTER 2025-02-09 15:06 | Outpatient (REF) | payer OTHER, SELFPAY | END 2025-02-09 15:07 | disposition home or self-care (01) | LOC: HO.LAB 15:06 | PROVIDERS: Internal Medicine Endocrinology, Diabetes & Metabolism; PCP Internal Medicine; Visit Provider Student in an Organized Health Care Education/Training Program | DX: M81.0 Age-related osteoporosis without current pathological fracture (principal) | CPT/HCPCS: 36415; 82306; 84100 ==

== ENCOUNTER 2025-02-15 12:03 | Outpatient (REF) | payer OTHER, SELFPAY | END 2025-02-15 12:04 | disposition home or self-care (01) | LOC: HO.LNP 12:03 | PROVIDERS: PCP Internal Medicine; Visit Provider Internal Medicine Endocrinology, Diabetes & Metabolism | DX: K21.9 Gastro-esophageal reflux disease without esophagitis (principal); K62.5 Hemorrhage of anus and rectum; K64.8 Other hemorrhoids; K50.10 Crohn's disease of large intestine without complications; K59.09 Other constipation; M81.0 Age-related osteoporosis without current pathological fracture; D50.0 Iron deficiency anemia secondary to blood loss (chronic); R10.9 Unspecified abdominal pain | CPT/HCPCS: 86335; 99212 ==

== ENCOUNTER 2025-02-15 12:03 | Outpatient (AMB) | payer OTHER, SELFPAY ==
--- NOTE | 2025-02-15 12:21 | A.OFFVIS_ITS ---
Vital Signs 02/15/25 12:22 Height 5 ft 1 in Weight 142 lb BMI 26.8 BP 105/75 Blood Pressure Location Lt brachial Position Sitting Pulse 109 H Pulse Oximetry (%) 99 Oxygen Delivery Method Nasal Cannula Oxygen Flow Rate 3 Intake Visit Reasons: 6 mo F/U Intake Note: Patient follow up for Abdominal pain Patient cc: burning esophagus on and off, denies any other GI issues. Nitrating Acid Mixer Required: Yes Accompanied by: Self / Same As Patient Allergies No Known Allergies (No Known Allergies*) Allergy (Verified 02/15/25 12:21) Medication List - Last Reconciled 02/15/25 by Marya Galvan MD back brace As directed calcium carbonate-vitamin D3 600 mg-20 mcg (800 unit) (Caltrate plus D) 1 tab PO DAILY cholecalciferol (vitamin D3) 125 mcg PO DAILY compressor, for nebulizer As directed cyclobenzaprine 10 mg PO BID PRN ferrous sulfate 325 mg PO DAILY 90 days ivabradine 5 mg PO BID levalbuterol HCl 1.25 mg (3 mL) inhalation Q4H PRN metronidazole 0.75% 1 appl topical BEDTIME PRN nebulizers As directed Oxygen Home Use As directed prednisone 7.5 mg (3 x 2.5 mg) PO DAILY 30 days trazodone 50 mg PO BEDTIME PRN HPI HPI 6 mo F/U: Details: GI clinic visit for this 49-year-old [place] Islander-speaking female for follow-up of abdominal pain and diarrhea. ? CHRONIC ILLNESSES:?GERD, moshe-metrorrhagia TODAY[place] [facility] [place] CC: Patient cc: burning esophagus on and off Intermittent burning sensation in the esophagus and lasts 2-3 days Usually associated with certain foods - carbonated malt beverage Constipation has improved - has a BM 2-3 times a day and denies abdominal pain. Stopped taking Omeprazole since she was diagnosed with osteoporosis Cream for the hemorrhoids she needs a new refill because she ran out. She said when she was given the steroid she states she has a fungus type thing on her tongue and in her mouth under the lip. Hospitalized in 08/2024 with breathing problems - discharged on Home oxygen 2-3 L/M by nasal cannula Constipation is a lot better - not having abd pain Has a BM daily PAST VISIT: I am getting better Leavng for PA tomorrow for 2 weeks since Dad is ill with throat and cardiac problems Pt complains of worsening constipation - has a BM 2-3 times a day with passage of hard stools - like balls Denies abdominal pain. She was taking a powder (Ndiaye) which was working in the past and is no longer working. Complains of fatigue, feeling cold and excessive sleepiness CC: Pt reports that they have remained stable since their last visit, however; they have not seen any significant improvements in their sx. Pt is still reporting chronic constipation concerns and would like to discuss this today. Has a cold. Lab results reviewed I am feeling better Abd pain and constipation has improved. Has a BM daily Pt noted to have tachycardia - denies feeling dizzy or lightheaded States has not been drinking fluids - advised to drink 5-6 glasses of sports drink and water daily EGD and colon results were reviewed with the patient Constipation is better - able to have a BM every 2 days Taking Ndiaye daily which is helping with constipation Doing OK - still has constipation and has a BM every 3 days Abd pain is controlled and continues to have rectal bleeding every time she has a BM Pt complains of abdominal pain started last wed and wednesday Pain stopped on Wednesday BM was very hard and pain improved when she started having diarrhea Recurrent pain and Wed and started having diarrhea. hemorrhoids start popping out when she strains to have a BM. Also notes intermittent bleeding. Lab tests reviewed - IBD serologies positive for Crohn's disease and fecal calprotectin was > 500 (pt had Salmonella infection) Appetite is low - hardly eating anything. Did not have labs done since she has been very depressed and not leaving her house. Has been feeling very hot. Abdominal pain and constipation are better. Rectal bleeding is better. Still has some rectal bleeding when she goes to the bathroom - when she has hard stools. Did not get topical treatment for hemorrhoids - pharmacy told her it needed a PA. Has been using OTC hemorrhoidal creams and they have not been helpful Pt advised to start iron pills for anemia and have labs checked in 4 weeks. Labs show chronic anemia - of note pt is status post hysterectomy 3-4 yrs ago. Patient cc: abdominal bloating, constipation and acid reflex on and off is much better with medication. Patient said the pharmacy never gave her the Hemorrhoids ointment. When she does have a BM she does still see some blood as well. She states that she took a picture with the blood in the toilet. ?Unable to have a BM for the past 3 days - she was able to go today Taking a fibre pill and does not think its helping a lot. Using hemorrhoid cream one to two times daily. Taking Miralax once a day. Constipation has been better since her last visit to the ED. Abdominal pain is better and denies diarrhea. Has eliminated certain foods due to the pain. No problems with hemorrhoids since her last ER visit - using HC with Lidocaine cream prn. ? ?I had not had any abdominal pain for 2 weeks until yesterday 11:40 in the am. ? Pain came on suddenly. ? She was at [facility] and did not want to use the rest room. ? Went home and had an accident and pain gradually subsided around 1:30 pm. ? Did not eat any thing in the morning. ? Wt fluctuates - looses 3-5 lbs and then regains it LABS IN [facility]:?07/21/19 Normal CBC with mild anemia and mildly elevated transaminases. ? 12/14 celiac serologies were negative. ?IMAGING STUDIES 07/24/[address] scan showed: ? 1. There is a continued stable appearance of a of liv mesentery, of ? with nonpathologically enlarged mesenteric lymph nodes. Please note ? differential considerations on prior report. 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 ? 2. No bowel obstruction, free intracranial air abscess is seen. No ? focal bowel wall thickening. No appendicitis or diverticulitis is seen. ? 3. The gallbladder is surgically absent. ? 4. There is diminished, minimal nonspecific free fluid within the right hemipelvis. ? 5. There is mild degenerative disc disease redemonstrated at L4-L5. ?04/20/[address] scan showed: ? 1. Subtle fat stranding of the central mesentery with numerous nonpathologically enlarged lymph node is seen, a liv mesentery appearance. This has a broad differential which includes mesenteric adenitis. Enteritis is a further differential possibility, although no focal bowel wall thickening is presently noted on this examination ? performed without the benefit of oral contrast. It has been described with lymphoma although typically there is a history of lymphoma or evidence of lymphadenopathy elsewhere, not seen on this patient. In ? the absence of symptoms, it is of uncertain etiology or clinical significance. If there is continued clinical concern, a follow-up CT scan could be obtained in 3-6 months. ? 2. No bowel obstruction, free intraperitoneal air or abscess is seen. Thi s no appendicitis or diverticulitis. ? 3. The gallbladder is surgically absent. ? 4. There is a small amount of free fluid within the dependent pelvis. A small right ovarian cyst is suspected. These findings could be more fully evaluated with dedicated pelvic ultrasound, if clinically indicated. ? 5. There is mild degenerative disc disease at L4-L5. ?09/2018 UGI showed: ? IMPRESSION: ? Prominent gastroesophageal reflux with slow clearing to the level of ? the thoracic inlet. Findings consistent with antral gastritis and duodenitis. Question duodenal bulb ulcer. ?ENDOSCOPIC STUDIES: 05/2023 EGD AND COLON SHOWED: Endoscopy Findings: STOMACH: Moderate diffuse gastritis DUODENUM: Normal - biopsied to check for celiac sprue Colonoscopy Findings: One small polyp removed Moderate to severe diverticulosis seen in the left colon with edematous and erythematous folds Moderate hemorrhoids on retroflexed exam. Plan: Repeat Colonoscopy interval based on path results - in 1-2 years if polyps are adenomatous and due to fair prep in the left colon. Above findings were reviewed with the patient and Gastritis, colon polyps and diverticulosis handouts were given in the discharge area BIOPSIES SHOWED: A. Small bowel, biopsy: Duodenal/small bowel mucosa with preserved villi and no specific change. B. Gastric antrum, biopsy: Chronic gastritis with minimal activity and foveolar hyperplasia; negative for H pylori, granulomas, intestinal metaplasia and dysplasia. C. Gastric body, biopsy: Chronic gastritis with focal gland atrophy; negative for H pylori, granulomas, intestinal metaplasia and dysplasia. D. Terminal ileum, biopsy: Ileal mucosa with no specific change. E. Colon, cecal polyp: Colonic mucosa with focal active colitis; negative for regenerative changes and granulomas (see comment). F. Colon, left, biopsy: Colonic mucosa with mild nonspecific increase in chronic inflammation without activity or regenerative changes; negative for granulomas and dysplasia. G. Colon, left, biopsy: Colonic mucosa with lymphoid aggregates and no specific change; no regenerative changes, granulomas or dysplasia. H. Colon, sigmoid, biopsy: Colonic mucosa with lymphoid aggregates and no specific change; no regenerative changes, granulomas or dysplasia. I. Colon, rectum, biopsy: Colonic mucosa with mild nonspecific increase in chronic inflammation without activity or significant regenerative changes; negative for granulomas and dysplasia. Comment: (E): No adenomatous dysplasia seen on initial levels; additional deeper levels pending; Many of the biopsies show chronic inflammation that may be related to the patient's history of Crohn's disease (? treated); clinical correlation is necessary 11/2018 EGD SHOWED:? ESOPHAGUS: Mild esophagael motility disorder? STOMACH: Hemorrhagic gastritis with prominent gastric folds ? Plan: ? Continue present medications (Omeprazole at 20 mg PO once daily) ? Patient has an appointment on 01/13/19 in the GI Clinic with Marya Galvan M.D ? BIOPSIES SHOWED: ? A. Small bowel, biopsy: Small bowel mucosa with no significant histopathology; no ? villous abnormality identified; no increase in intraepithelial lymphocytes. ? B. Stomach, antrum, biopsy: Moderate chronic, inactive gastritis; Helicobacter pylori organisms seen. ? C. Stomach, folds, biopsy: Moderate chronic, inactive gastritis; no Helicobacter pylori organisms seen. ?04/2019 COLONOSCOPY SHOWED: ? Patchy erythema with a few 2-3 mm aphthoid ulcers in the cecum - random biopsies were obtained from TI, right and left colon. ? Moderate hemorrhoids on retroflexed exam. ? Plan: ? Continue present medications (Omeprazole at 20 mg PO once daily) ? Repeat Colonoscopy interval based on path results in 3-5 years if ? polyps are adenomatous and 10 years if polyps are hyperplastic. ? BIOPSIES SHOWED: ? A. Terminal ileum, biopsies: Terminal ileum mucosa with mildly increased lamina propria chronic inflammation, non-specific; no active inflammation; negative for dysplasia/malignancy. ? B. Colon, right, biopsies: Mild chronic colitis; negative for dysplasia/malignancy. ? C. Colon, left, biopsies: Mild chronic colitis; negative for dysplasia/malignacy PFSH Medical History ILD (interstitial lung disease) Supplemental oxygen dependent Pneumomediastinum Breast cancer screening by mammogram Overweight (BMI 25.0-29.9) Abnormal CT scan, chest Hemorrhoids with complication Colon cancer screening Generalized abdominal pain Visual impairment Duodenal ulcer GERD (gastroesophageal reflux disease) Obesity (BMI 30-39.9) Menometrorrhagia Seizure in childhood Sclerosing mesenteritis GERD without esophagitis Surgical History History of esophagogastroduodenoscopy (EGD) Hx of colonoscopy Hx of cholecystectomy (~2005) Hx of hysterectomy Hx of section Family History Father Myocardial infarct CVA (cerebral vascular accident) Mother No problems noted. Daughter No problems noted. Son No problems noted. Brother Substance abuse Social History Household Members: Family Housing: Apartment Do you presently have visiting nurse or other home services: No Alcohol intake: never Patient Tobacco Use Status: Never used Tobacco Tobacco use type: Cigarette e-Cigarette/Vaping Use: Never Used Second Hand Smoke Exposure: No service: No Current occupational status: employed and unemployed Current occupation: [employer] Cognitive needs: No Hearing needs: No Vision needs: No Review of Systems Const All systems reviewed & are unremarkable except as noted in HPI and below Physical Exam Vital Signs: Last Vital Signs Pulse 109 H 02/15/25 12:22 BP 105/75 02/15/25 12:22 Pulse Ox 99 02/15/25 12:22 Oxygen Delivery Method Nasal Cannula 02/15/25 12:22 Oxygen Flow Rate 3 02/15/25 12:22 BMI result Body Mass Index 26.8 Const General: no acute distress and ill appearing (Chronically ill-appearing) Nutritional Appearance: overweight Orientation/consciousness: patient oriented x3 Limitations: language barrier, wheelchair and other limitations (On home O2) HEENT Head: Yes normal to inspection Ears: hearing grossly normal bilaterally Eyes Sclerae: sclerae normal Pupils: Equal, round and reactive pupils present Neck Neck: Yes normal visual inspection Chest Chest palpation & inspection: normal inspection of the chest Resp Effort & Inspection: normal respiratory effort Auscultation: clear to auscultation bilaterally Cardio Palpation: normal PMI Rate: regular rate Rhythm: regular rhythm Heart sounds: S1 normal heart sound present, S2 normal heart sound present and no murmurs GI Palpation (GI): Soft to palpation, nontender and No hepatosplenomegaly present Auscultation: normal bowel sounds Rectal Exam - Female: deferred Skin General skin exam: no rashes or lesions noted Neuro General: patient oriented x3, gait normal and moves all extremities Cranial nerves: Yes Equal, round and reactive pupils present Psych Appearance: grossly normal Mental Status: mental status grossly normal Assessment & Plan Assessment & Plan (1) Chronic constipation: Code(s): K59.09 - Other constipation Category: Medical (2) GERD (gastroesophageal reflux disease): Code(s): K21.9 - Gastro-esophageal reflux disease without esophagitis Category: Medical (3) Hemorrhoids with complication: Code(s): K64.8 - Other hemorrhoids Category: Medical (4) Rectal bleeding: Code(s): K62.5 - Hemorrhage of anus and rectum Category: Medical (5) Iron deficiency anemia due to chronic blood loss: Code(s): D50.0 - Iron deficiency anemia secondary to blood loss (chronic) Category: Medical (6) Abdominal pain: Code(s): R10.9 - Unspecified abdominal pain Category: Medical (7) Crohn's disease of colon: Code(s): K50.10 - Crohn's disease of large intestine without complications Category: Medical Plan 49 year old [place] Islander-speaking female?with GERD, moshe-metrorrhagia followed in GI clinic for post prandial generalized abdominal pain associated with diarrhea for the past 5 years when she moved from [place].? Labs revealed elevated sed rate of 71, a normal CRP of 0.27. Celiac serologies showed normal TTG IgA, mild increase in antigliadin antibody IgA 27. Iron studies revealed a ferritin of 32. Her symptoms are likely a combination of diarrhea pre-dominent IBS and sclero sing mesenteritis. UGI showed possible ulcer in duodenal bulb. EGD showed Mild esophageal motility disorder, Hemorrhagic gastritis with prominent gastric folds, no ulcer noted in the duodenum. Gastric biopsies were positive for H pylori. Patient was treated with triple therapy for H pylori gastritis(clarithromycin, amoxicillin for 10 days) and advised to resume dicyclomine for IBS. Patient had acute onset of abdominal pain with diarrhea and stool studies are positive for Salmonella infection which resolved without treatment. 05/17 Colonoscopy showed Patchy erythema with a few 2-3 mm aphthoid ulcers. Random biopsies were obtained from TI, right and left colon which showed mild chronic colitis- likely related to Salmonella infection; negative for dysplasia/malignancy. Repeat screening colonoscopy was advised in 5 years for follow-up of colitis (due 04/2025). Abdominal pain improved. Patient complained of constipation with intermittent hemorrhoids.? She was advised to increase water and fluid intake and use senna 2 to 3 times a week p.r.n. Repeat labs to follow up on mild anemia and elevated LFTs in past - repeat LFTs were normal. Pt advised to start iron pills for anemia and have labs checked in 4 weeks. 12/17/22 Pt advised to schedule an EGD and a colonoscopy (recurrent SIOBHAN anemia and FU on colitis seen on past colon). Pt to return to the lab for lab tests ordered by Dr Garcia. 04/09/23 - labs showed resolution of anemia and elevated Ig A of 864 - pt referred to Heme Onc for evaluation 06/16/23 Pt seen by Oncology for IgA gammopathy: This is 47-year-old woman with recently diagnosed Crohn's disease and multitude of gastrointestinal problems was noted to have elevated IgA level along with hypoalbuminemia and elevated total protein. She does not have significant anemia or renal dysfunction. No hypercalcemia. Serum protein electrophoresis was consistent with chronic inflammatory pattern. Serum immunofixation showed elevation all immunoglobulin levels, no monoclonal protein detected. Her ESR is elevated, elevated IgA and hyper paraproteinemia can be seen in inflammatory conditions such as Crohn's disease as well. No further hematological workup is necessary. For her facial rash/?rosacea, she was advised to follow-up with her PCP. 05/2023 EGD and colon was performed and findings as noted above 07/01/23 Pt advised to start mesalamine for Crohn's colitis Labs in 4 weeks 02/03/24 Pt complains of worsening constipation - has a BM 2-3 times a day with passage of hard stools - like balls. Denies abdominal pain. She was taking a powder which was working in the past and is no longer working. Pt advised FU labs and fecal calprotectin. Start Linzess 145 mcg daily 04/20/24 Constipation improved 02/15/25 Intermittent burning sensation in the esophagus and lasts 2-3 days Usually associated with certain foods - carbonated malt beverage Constipation has improved - has a BM 2-3 times a day and denies abdominal pain. Stopped taking Omeprazole since she was diagnosed with osteoporosis Pt advised to take Famotidine prn for HB symptoms Follow-up telemedicine visit in 3 months Medications: New famotidine 20 mg PO BID PRN 180 tabs 3RF GERD 90 days K21.9 - Gastro-esophageal reflux disease without esophagitis Coding Level of Care Code Est Pt Level 4 (09252) Diagnoses Chronic constipation K59.09 GERD (gastroesophageal reflux disease) K21.9 Hemorrhoids with complication K64.8 Rectal bleeding K62.5 Iron deficiency anemia due to chronic blood loss D50.0 Abdominal pain R10.9 Crohn's disease of colon K50.10 Time Spent (min) 21
[2025-02-15 12:22] VITALS: BP 105/75; PULSE 109; O2SAT 99; BMI 26.8
== END 2025-02-15 13:24 | disposition home or self-care (01) ==
LOC: HO.HGI 12:04
PROVIDERS: PCP Internal Medicine; Visit Provider Internal Medicine Gastroenterology
DX: K59.09 Other constipation (principal); K21.9 Gastro-esophageal reflux disease without esophagitis; K64.8 Other hemorrhoids; K62.5 Hemorrhage of anus and rectum; D50.0 Iron deficiency anemia secondary to blood loss (chronic); R10.9 Unspecified abdominal pain; K50.10 Crohn's disease of large intestine without complications
CPT/HCPCS: 99214

== ENCOUNTER 2025-02-21 14:14 | Outpatient (AMB) | payer OTHER, SELFPAY ==
[2025-02-21 14:37] VITALS: BP 114/72; PULSE 86; BMI 27.5
--- NOTE | 2025-02-21 14:37 | A.OFFVIS_ITS ---
Vital Signs 02/21/25 14:37 Height 5 ft 1.3 in Weight 147 lb 0.773 oz BMI 27.5 BP 114/72 Blood Pressure Location Rt brachial Position Sitting Pulse 86 Pulse Source Pulse Oximeter Intake Visit Reasons: f/u osteoporosis Intake Note: Patient present today for Osteoporosis follow up. 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 Services: Sales Director Present [facility] Information Interpreted: non-clinical & clinical Accompanied by: Self / Same As Patient Allergies No Known Allergies (No Known Allergies*) Allergy (Verified 02/21/25 14:38) Medication List - Last Reconciled 02/21/25 by Jerod Urrutia MD back brace As directed calcium carbonate-vitamin D3 600 mg-20 mcg (800 unit) (Caltrate plus D) 1 tab PO DAILY cholecalciferol (vitamin D3) 125 mcg PO DAILY compressor, for nebulizer As directed cyclobenzaprine 10 mg PO BID PRN famotidine 20 mg PO BID PRN 90 days ferrous sulfate 325 mg PO DAILY 90 days ivabradine 5 mg PO BID levalbuterol HCl 1.25 mg (3 mL) inhalation Q4H PRN metronidazole 0.75% 1 appl topical BEDTIME PRN nebulizers As directed Oxygen Home Use As directed prednisone 7.5 mg (3 x 2.5 mg) PO DAILY 30 days trazodone 50 mg PO BEDTIME PRN HPI Comments Details: 49 YO Female with PMHx interstitial lng dx /steroid dependency is seen in consultation at the request of PCP for Osteoporosis. The patient is a 49-year-old female presenting with osteoporosis and compression fractures in the spine. The osteoporosis was identified more than two months ago, and the fractures were attributed to coughing due to chronic steroid use for lung disease. The patient has not previously seen a specialist for osteoporosis and has not received treatment for it before this visit. The patient is on chronic steroid therapy for lung disease, which has contributed to the development of osteoporosis. She has been advised to take calcium and vitamin D supplements, with a recent increase in vitamin D dosage to 5000 IU due to low blood levels. The patient denies any history of kidney stones and reports no family history of osteoporosis or hip fractures. First diagnosed in 2 mos ago .Not seen specialist before Never Received treatment in the past Has history of pathologic fracture in thoraic spine from coughing no ONJ. Has several servings of dietary calcium per day in the form of cheese, milk, cereal . Takes Calcium supplement 600 mg daily . Takes 800 IU of Vitamin D daily and 5000 IU daily since 3 wks a go . Takes PPI,- anticoagulant, -antiepileptic but takes glucocorticoid medication. Not Does weight bearing exercise . The patient is considering engaging in weight-bearing exercises but is awaiting approval due to concerns about fractures. 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 Menopause hysterecomy 3 yrs ag0 Denies history of Kidney stones: Denies family history of Osteoporosis or hip fracture. UTD on dental cleanings and sees dentist every 6 months. has planned upcoming dental work root canal no extractions. No tobacco use or heavy ETOH use DXA dated 12/06/24 : EXAMINATION: DXA BONE DENSITY AXIAL HISTORY: M48.50XA - Collapsed vertebra, not elsewhere classified, site unspecified... TECHNIQUE: [employer] Dual energy absorptiometry (DEXA) of the lumbar spine, total left hip, and femoral neck was performed. COMPARISON: There are no prior studies for comparison. FINDINGS: The bone mineral density of the lumbar spine is 1.016, corresponding to a T-score of -1.4, and a Z-score of -0.8. This is indicative of osteopenia. The bone mineral density of the left total hip is 0.739, corresponding to a T-score of -2.1, and a Z-score of -1.5. This is indicative of osteopenia. The bone mineral density of the left femoral neck is 0.750, corresponding to a T-score of -2.1, and a Z-score of -1.2. This is indicative of osteopenia. FRACTURE RISK: The FRAX index suggests a risk of major osteoporotic fracture of 5.0%, and of hip fracture 0.9%. MM/XR DEXA axial skeleton IMPRESSION: Based on bone mineral density, and according to World Health Organization (WHO) criteria, the diagnosis is consistent with osteopenia. Labs: Secondary workup showed low 25- vitamin-D. Patient did not complete the 24 hour urine for calcium and creatinine. Suffered another thoraic fx PFSH Medical History ILD (interstitial lung disease) Supplemental oxygen dependent Pneumomediastinum Breast cancer screening by mammogram Overweight (BMI 25.0-29.9) Abnormal CT scan, chest Hemorrhoids with complication Colon cancer screening Generalized abdominal pain Visual impairment Duodenal ulcer GERD (gastroesophageal reflux disease) Obesity (BMI 30-39.9) Menometrorrhagia Seizure in childhood Sclerosing mesenteritis GERD without esophagitis Surgical History History of esophagogastroduodenoscopy (EGD) Hx of colonoscopy Hx of cholecystectomy (~2005) Hx of hysterectomy Hx of section Family History Father Myocardial infarct CVA (cerebral vascular accident) Mother No problems noted. Daughter No problems noted. Son No problems noted. Brother Substance abuse Social History Household Members: Family Housing: Apartment Do you presently have visiting nurse or other home services: No Alcohol intake: never Patient Tobacco Use Status: Never used Tobacco Tobacco use type: Cigarette e-Cigarette/Vaping Use: Never Used Second Hand Smoke Exposure: No service: No Current occupational status: employed and unemployed Current occupation: [employer] Cognitive needs: No Hearing needs: No Vision needs: No Physical Exam Vital Signs: Last Vital Signs Pulse 86 02/21/25 14:37 BP 114/72 02/21/25 14:37 BMI result Body Mass Index 27.5 Assessment & Plan Assessment & Plan (1) Osteoporosis: Code(s): M81.0 - Age-related osteoporosis without current pathological fracture Category: Medical Plan: This is a 49-year-old female with a history of chronic steroid dependency and multiple compression fractures of the thoracic spine. Partial secondary workup has been performed Plan is to increase the vitamin D3 210 16211 IU per day +800 IU complete the secondary workup by checking a 24 hour urine for calcium and creatinine, repeat 25 hydroxy vitamin-D in 2 months . We will start anabolic agent indicated for glucocorticoid induced osteoporosis such as Tymlos alternatively Forteo depending on insurance coverage as patient is actively fracture and would not wait until patient is completely vitamin replete before starting the anabolic Orders: Orders Vitamin D 25-OH Total 2 Months M81.0 - Age-related osteoporosis without current pathological fracture Medications: New abaloparatide (Tymlos) inject into abdomen; do not inject within 2 inches of belly button/navel; rotate sites 80 mcg (0.04 mL) subcut DAILY 14.4 mL 0RF 12 months pen needle, diabetic (Comfort EZ Pen [place]) As directed injects once a day 100 ea 4RF cholecalciferol (vitamin D3) 250 mcg PO DAILY 30 tabs 5RF Discontinued cholecalciferol (vitamin D3) Discontinued Reason: Doctor's Order 125 mcg PO DAILY 90 caps 1RF M81.0 - Age-related osteoporosis without current pathological fracture Coding Level of Care Code Est Pt Level 3 (75603) Diagnoses Osteoporosis M81.0
== END 2025-02-21 15:22 | disposition home or self-care (01) ==
LOC: HO.ENCR 14:14
PROVIDERS: PCP Internal Medicine; Visit Provider Internal Medicine Endocrinology, Diabetes & Metabolism
DX: M81.0 Age-related osteoporosis without current pathological fracture (principal)
CPT/HCPCS: 99213

== ENCOUNTER → 2025-02-21 14:14 | Outpatient (BNVA) | payer OTHER, SELFPAY | PROVIDERS: PCP Internal Medicine; Visit Provider Internal Medicine Endocrinology, Diabetes & Metabolism | DX: M81.0 Age-related osteoporosis without current pathological fracture (principal) | CPT/HCPCS: 99212 ==

== ENCOUNTER 2025-04-02 13:39 | Outpatient (AMB) | payer OTHER, SELFPAY ==
--- NOTE | 2025-04-02 14:02 | A.OFFVIS_ITS ---
Vital Signs 04/02/25 14:04 Height 5 ft 1.3 in BMI Reason not done Patient refused/unable BP 124/62 Blood Pressure Location Lt brachial Position Sitting Pulse 85 Pulse Source Pulse Oximeter Intake Visit Reasons: 4 mth f/up Intake Note: 4 mt f/up Site Inspector Required: Yes Site Inspector Language: Razor Sharpener Name: voyce/japanese/ Accompanied by: Mother Allergies No Known Allergies (No Known Allergies*) Allergy (Verified 02/21/25 14:38) Medication List - Last Reconciled 04/02/25 by Herman Finley MD back brace As directed calcium carbonate-vitamin D3 600 mg-20 mcg (800 unit) (Caltrate plus D) 1 tab PO DAILY cholecalciferol (vitamin D3) 250 mcg PO DAILY compressor, for nebulizer As directed cyclobenzaprine 10 mg PO BID PRN famotidine 20 mg PO BID PRN 90 days ferrous sulfate 325 mg PO DAILY 90 days Forteo (teriparatide) 20 mcg (0.08 mL) subcut DAILY NS ivabradine 5 mg PO BID levalbuterol HCl 1.25 mg (3 mL) inhalation Q4H PRN metronidazole 0.75% 1 appl topical BEDTIME PRN nebulizers As directed Oxygen Home Use As directed pen needle, diabetic (Comfort EZ Pen [place]) As directed injects once a day prednisone 7.5 mg (3 x 2.5 mg) PO DAILY 30 days trazodone 50 mg PO BEDTIME PRN HPI Comments Details: 49 female with ILD on supplemental oxygen. She has tachycardia and palpitations. She was in the hospital recently with exacerbation of ILD. she was seen at that time for sinus tachycardia. It was felt that the sinus tachycardia is due to underlying lung disease and hypoxia. She returns and continues to be on supplemental oxygen. She gets palpitations when she gets up and walk. She is tachycardic at baseline in 120s in sinus tachycardia. 04/02/2025: She is here for follow-up. On last visit she was started on ivabradine for sinus tachycardia. She has done very well with that and has significant improvement in palpitations and her heart rates are in 80s. She continues to be oxygen dependent due to interstitial lung disease. [facility] Medical History ILD (interstitial lung disease) Supplemental oxygen dependent Pneumomediastinum Breast cancer screening by mammogram Overweight (BMI 25.0-29.9) Abnormal CT scan, chest Hemorrhoids with complication Colon cancer screening Generalized abdominal pain Visual impairment Duodenal ulcer GERD (gastroesophageal reflux disease) Obesity (BMI 30-39.9) Menometrorrhagia Seizure in childhood Sclerosing mesenteritis GERD without esophagitis Surgical History History of esophagogastroduodenoscopy (EGD) Hx of colonoscopy Hx of cholecystectomy (~2005) Hx of hysterectomy Hx of section Family History Father Myocardial infarct CVA (cerebral vascular accident) Mother No problems noted. Daughter No problems noted. Son No problems noted. Brother Substance abuse Social History Household Members: Family Housing: Apartment Do you presently have visiting nurse or other home services: No Alcohol intake: never Patient Tobacco Use Status: Never used Tobacco Tobacco use type: Cigarette e-Cigarette/Vaping Use: Never Used Second Hand Smoke Exposure: No service: No Current occupational status: employed and unemployed Current occupation: [employer] Cognitive needs: No Hearing needs: No Vision needs: No Review of Systems Const Denies chills, Denies fatigue, Denies fever(s), Denies frequent falls, Denies weakness, Denies weight gain and Denies weight loss ENT Denies dizziness Card Denies chest pain, Denies leg edema, Denies lightheadedness, Denies palpitations, Denies dyspnea and Denies dyspnea on exertion Resp Denies cough, Denies dyspnea and Denies dyspnea on exertion GI Denies hematochezia Musc Denies abnormal gait, Denies muscle weakness, Denies numbness, Denies radiating pain into limb and Denies tingling Neuro Denies abnormal gait, Denies dizziness, Denies frequent falls, Denies numbness, Denies tingling and Denies weakness Endo Denies fatigue and Denies palpitations Physical Exam Vital Signs: Last Vital Signs Pulse 85 04/02/25 14:04 BP 124/62 04/02/25 14:04 GENERAL APPEARANCE: Emotional and tearful. On supplemental oxygen. NECK: no carotid bruit, no jugular venous distention. SKIN: no suspicious lesions, warm and dry. HEART: no murmurs, regular rate and rhythm. LUNGS: Bilateral crackles to mid lungs. ABDOMEN: soft, nontender. EXTREMITIES: no edema. PERIPHERAL PULSES: equal. NEUROLOGIC: No gross deficits, AAO X 3 Assessment & Plan Assessment & Plan (1) Sinus tachycardia: Code(s): R00.0 - Tachycardia, unspecified Category: Medical Plan [age] year female with advanced interstitial lung disease on supplemental oxygen. She had sinus tachycardia secondary to interstitial lung disease. She was symptomatic and we tried beta-monalisa before but she could not tolerate them. She was started on ivabradine with good response in heart rate control as well as palpitations. I think this should be continued group home for her. Follow up with us in 6 months. Thank you for allowing me to participate in the care of your patient. Please feel free to contact me if you have any questions. Medications: Discontinued teriparatide (Forteo) Discontinued Reason: Doctor's Order 20 mcg (0.08 mL) subcut DAILY 2.24 mL 12RF Coding Level of Care Code Est Pt Level 4 (40180) Diagnoses Sinus tachycardia R00.0
[2025-04-02 14:04] VITALS: BP 124/62; PULSE 85
== END 2025-04-02 14:35 | disposition home or self-care (01) ==
LOC: HO.HCS 13:40
PROVIDERS: PCP Internal Medicine; Visit Provider Internal Medicine Cardiovascular Disease
DX: R00.0 Tachycardia, unspecified (principal)
CPT/HCPCS: 99214

== ENCOUNTER → 2025-04-02 13:39 | Outpatient (BNVA) | payer OTHER, SELFPAY | PROVIDERS: PCP Internal Medicine; Visit Provider Internal Medicine Cardiovascular Disease | DX: J84.9 Interstitial pulmonary disease, unspecified (principal); R00.0 Tachycardia, unspecified; Z99.81 Dependence on supplemental oxygen | CPT/HCPCS: 99212 ==

== ENCOUNTER 2025-04-04 12:48 | Outpatient (AMB) | payer OTHER, SELFPAY ==
--- NOTE | 2025-04-04 13:01 | A.OFFVIS_ITS ---
Vital Signs 04/04/25 13:02 Height 5 ft 1.3 in Weight 148 lb BMI 27.7 BP 108/70 Blood Pressure Location Rt brachial Position Sitting Pulse 95 Pulse Source Pulse Oximeter Pulse Oximetry (%) 94 Oxygen Delivery Method Nasal Cannula Oxygen Flow Rate 3 Intake Visit Reasons: Dyspnea Boiling Off Winder Required: Yes Boiling Off Winder Name: Ava Styles Alan Allergies No Known Allergies (No Known Allergies*) Allergy (Verified 04/04/25 13:09) HPI HPI Dyspnea: Details: 49-year-old lady, nonsmoker, w now followed for interstitial lung disease with recent exacerbation requiring admission in high-dose glucocorticoid course, tapered down to prednisone 60 mg daily and completed 3 months of therapy with has returned to baseline respiratory status requiring 2-3 L of supplemental oxygen. After the last office visit patient continued on prednisone 7.5 mg daily with stable respiratory symptoms. Today she does report worsening vision in her left eye for which she is scheduled to see an recreation establishment manager later this week. [facility] Medical History ILD (interstitial lung disease) Supplemental oxygen dependent Pneumomediastinum Breast cancer screening by mammogram Overweight (BMI 25.0-29.9) Abnormal CT scan, chest Hemorrhoids with complication Colon cancer screening Generalized abdominal pain Visual impairment Duodenal ulcer GERD (gastroesophageal reflux disease) Obesity (BMI 30-39.9) Menometrorrhagia Seizure in childhood Sclerosing mesenteritis GERD without esophagitis Surgical History History of esophagogastroduodenoscopy (EGD) Hx of colonoscopy Hx of cholecystectomy (~2005) Hx of hysterectomy Hx of section Family History Father Myocardial infarct CVA (cerebral vascular accident) Mother No problems noted. Daughter No problems noted. Son No problems noted. Brother Substance abuse Social History Household Members: Family Housing: Apartment Do you presently have visiting nurse or other home services: No Alcohol intake: never Patient Tobacco Use Status: Never used Tobacco Tobacco use type: Cigarette e-Cigarette/Vaping Use: Never Used Second Hand Smoke Exposure: No service: No Current occupational status: employed and unemployed Current occupation: [employer] Cognitive needs: No Hearing needs: No Vision needs: No Review of Systems Const Denies daytime sleepiness, Denies excessive sweating, Denies fatigue, Denies fever(s), Denies lethargy, Denies malaise, Denies night sweats, Denies snoring and Denies weight loss Eyes Reports blurry vision and Denies itchy eyes ENT Denies nasal congestion, Denies post nasal drip, Denies sinus pain, Denies sinus pressure and Denies other ( Thrush) Card Denies chest pain, Denies pedal edema, Denies dyspnea, Reports dyspnea on exertion (Chronic), Denies orthopnea and Denies paroxysmal nocturnal dyspnea Resp Denies cough, Denies hemoptysis, Denies excessive phlegm production, Denies dyspnea, Reports dyspnea on exertion (Chronic), Denies snoring and Denies wheezing GI Denies abdominal pain and Denies heartburn Musc Denies myalgias, Denies arthralgias and Denies joint swelling Skin/Breast Denies rash Neuro Denies memory loss and Denies seizure-like activity Psych Denies abnormal sleep pattern, Denies anxiety and Denies memory loss Endo Denies excessive sweating, Denies fatigue and Denies heat intolerance Remy/Lymph Denies easy bruising Aller/Immun Denies itchy eyes, Denies seasonal rhinorrhea and Denies wheezing Physical Exam Vital Signs: Last Vital Signs Pulse 95 04/04/25 13:02 BP 108/70 04/04/25 13:02 Pulse Ox 94 04/04/25 13:02 Oxygen Delivery Method Nasal Cannula 04/04/25 13:02 Oxygen Flow Rate 3 04/04/25 13:02 BMI result Body Mass Index 27.7 Const General: no acute distress and alert Nutritional Appearance: not obese Orientation/consciousness: Other orientation findings ( oriented) HEENT Head: Yes atraumatic Eyes General: appearance normal, both eyes and all related structures Sclerae: sclerae normal EOM: EOMs intact bilaterally Neck Neck: Yes supple Lymphatic: no lymphadenopathy noted Resp Effort & Inspection: normal respiratory effort and no use of accessory muscles Auscultation: clear to auscultation bilaterally Cardio Rate: regular rate Rhythm: regular rhythm Heart sounds: no gallops, no murmurs and no rubs Skin General skin exam: other ( warm) Extrem General: No clubbing, No cyanosis and No edema Assessment & Plan Assessment & Plan (1) ILD (interstitial lung disease): Code(s): J84.9 - Interstitial pulmonary disease, unspecified Category: Medical Plan: Currently stable on prednisone 7.5 mg daily. Continue current regimen. (2) Supplemental oxygen dependent: Code(s): Z99.81 - Dependence on supplemental oxygen Category: Medical Plan: Continue supplemental oxygen to maintain O2 saturation above 88%. Coding Level of Care Code Est Pt Level 4 (31670) Diagnoses ILD (interstitial lung disease) J84.9 Supplemental oxygen dependent Z99.81
[2025-04-04 13:02] VITALS: BP 108/70; PULSE 95; O2SAT 94; BMI 27.7
== END 2025-04-04 13:50 | disposition home or self-care (01) ==
LOC: HO.HPS 12:49
PROVIDERS: PCP Internal Medicine; Visit Provider Internal Medicine Pulmonary Disease
DX: J84.9 Interstitial pulmonary disease, unspecified (principal); Z99.81 Dependence on supplemental oxygen
CPT/HCPCS: 99214

== ENCOUNTER → 2025-04-04 12:48 | Outpatient (BNVA) | payer OTHER, SELFPAY | PROVIDERS: PCP Internal Medicine; Visit Provider Internal Medicine Pulmonary Disease | DX: J84.9 Interstitial pulmonary disease, unspecified (principal); Z99.81 Dependence on supplemental oxygen | CPT/HCPCS: 99212 ==

== ENCOUNTER 2025-04-06 15:33 | Outpatient (REF) | payer OTHER, SELFPAY ==
[2025-04-06 15:51] LABS: MANUAL DIFF FLAG NO
[2025-04-06 17:24] LABS: Hematocrit 37.6 % (37.0-47.0); Hemoglobin 12.0 g/dl (12.0-16.0); Imm Gran Abs Auto 0.05 X10*3/uL (0.00-0.03); Imm Gran Pct Auto 0.7 % (0.0-0.4); Lymphocytes Absolute Auto 1.6 X10*3/uL (1.2-4.9); Mean Corpuscular HGB Conc 31.9 g/dl (31.0-35.0); Mean Corpuscular Hemoglobin 28.4 pg (27.0-33.0); Mean Corpuscular Volume 89.1 fL (80.0-98.0); NRBC Abs Auto 0.000 X10*3/uL (0.0-0.012); NRBC Pct Auto 0.0 /100WBC (0.0-0.2); Platelet Count 317 X10*3/uL (160-400); Red Blood Count 4.22 X10*6/uL (4.20-5.50); White Blood Count 7.5 X10*3/uL (4.8-10.8)
[2025-04-11 11:48] LABS: Anti Nuclear Antibody Screen NEGATIVE (NEGATIVE)
[2025-04-11 23:23] LABS: Treponema pallidum Ab FTA ABS Nonreactive (Nonreactive)
== END 2025-04-06 15:34 | disposition home or self-care (01) ==
LOC: HO.LAB 15:33
PROVIDERS: PCP Internal Medicine; Visit Provider Ophthalmology
DX: Z01.84 Encounter for antibody response examination (principal); H20.012 Primary iridocyclitis, left eye
CPT/HCPCS: 36415; 82164; 85025; 85652; 86038; 86039; 86140; 86780

== ENCOUNTER 2025-04-17 13:00 | Inpatient (IN) | payer OTHER, SELFPAY ==
[2025-04-17] VITALS (10 sets, daily range): BP systolic 116–170; BP diastolic 71–84; PULSE 93–118; RESP 14–28; TEMP 36.1–36.8; O2SAT 91–98; BMI 27.4
--- NOTE | ~2025-04-17 | XR_ITS ---
EXAMINATION: XR CHEST CLINICAL INFORMATION: pain COMPARISON: September 22, 2024 TECHNIQUE: PA and lateral views FINDINGS: Pulmonary reticular pattern. Low lung volume. No pleural effusion or pneumothorax. Cardiomediastinal silhouette size is normal. Osteopenia versus osteoporosis. Multilevel spondylosis. Vascular clips right upper quadrant abdomen likely prior cholecystectomy. XR/XR chest 2V IMPRESSION: Acute on chronic airspace disease. Concerning for pulmonary fibrosis. Electronically signed by: All Cornejo MD 04/17/2025 02:18 PM EDT
--- NOTE | 2025-04-17 13:20 | ECG_ITS ---
Test Reason : SOB Blood Pressure : */* mmHG Vent. Rate : 96 BPM Atrial Rate : 96 BPM P-R Int : 118 ms QRS Dur : 90 ms QT Int : 368 ms P-R-T Axes : 42 -17 12 degrees QTcB Int : 464 ms Normal sinus rhythm Moderate voltage criteria for LVH, may be normal variant ( R in aVL , Sodus product ) Possible Anterior infarct , age undetermined Abnormal ECG When compared with ECG of 22-Sep-2024 12:42, QT has lengthened Referred By: Fadi Tariq Electronically Signed By: SEAN STARR MD
--- NOTE | 2025-04-17 13:20 | ED.GENADULT ---
HPI - General Adult General Stated complaint: diff breathing Related Data Home Medications ?Medication ?Instructions ?Recorded ?Confirmed metronidazole 0.75 % topical cream 1 appl topical BEDTIME PRN redness 05/09/24 04/02/25 Previous Rx's ?Medication ?Instructions ?Recorded Oxygen Home Use #1 ea 03/08/24 levalbuterol HCl 1.25 mg/3 mL 1.25 mg (3 mL) inhalation Q4H PRN 05/12/24 solution for nebulization Shortness Of Breath/Wheezing #150 mL nebulizers #1 ea 05/12/24 compressor, for nebulizer #1 ea 05/15/24 cyclobenzaprine 10 mg tablet 10 mg PO BID PRN Muscle Spasm #30 10/16/24 tabs ferrous sulfate 325 mg (65 mg 325 mg PO DAILY 90 days #90 tabs 10/16/24 iron) tablet back brace #1 ea 11/03/24 calcium 600 mg (as carbonate)-vit 1 tab PO DAILY #30 tabs 11/07/24 D3 20 mcg (800 unit) chewable tablet (Caltrate plus D) ivabradine 5 mg tablet 5 mg PO BID #60 tabs 12/18/24 prednisone 2.5 mg tablet 7.5 mg (3 x 2.5 mg) PO DAILY 30 01/08/25 days #90 tabs famotidine 20 mg tablet 20 mg PO BID PRN GERD 90 days #180 02/15/25 tabs cholecalciferol (vitamin D3) 250 250 mcg PO DAILY #30 tabs 02/21/25 mcg (10,000 unit) tablet trazodone 50 mg tablet 50 mg PO BEDTIME PRN insomnia #90 03/21/25 tabs Forteo 20 mcg/dose (560 mcg/2.24 20 mcg (0.08 mL) subcut DAILY 04/11/25 mL) subcutaneous pen injector #2.24 mL (teriparatide) pen needle, diabetic 32 gauge x #100 ea 04/11/2511/10 (Comfort EZ Pen [place]) Allergies Allergy/AdvReac Type Severity Reaction Status Date / Time No Known Allergies (No Known Allergy Verified 04/04/25 13:09 Allergies*) PMFSH Past Medical History Medical History ILD (interstitial lung disease) Supplemental oxygen dependent Pneumomediastinum Breast cancer screening by mammogram Overweight (BMI 25.0-29.9) Abnormal CT scan, chest Hemorrhoids with complication Colon cancer screening Generalized abdominal pain Visual impairment Duodenal ulcer GERD (gastroesophageal reflux disease) Obesity (BMI 30-39.9) Menometrorrhagia Seizure in childhood Sclerosing mesenteritis GERD without esophagitis Surgical History History of esophagogastroduodenoscopy (EGD) Hx of colonoscopy Hx of cholecystectomy (~2005) Hx of hysterectomy Hx of section Family History Family History Father Myocardial infarct CVA (cerebral vascular accident) Mother No problems noted. Daughter No problems noted. Son No problems noted. Brother Substance abuse Social History Social History Household Members: Family Housing: Apartment Do you presently have visiting nurse or other home services: No Alcohol intake: never Patient Tobacco Use Status: Never used Tobacco Tobacco use type: Cigarette e-Cigarette/Vaping Use: Never Used Second Hand Smoke Exposure: No service: No Current occupational status: employed and unemployed Current occupation: [employer] Cognitive needs: No Hearing needs: No Vision needs: No Course Course Course Narrative: RME, this is a rapid medical exam performed by Chucky Tariq please refer to primary provider for complete H&P- 49-year-old female with a history of interstitial lung disease on chronic with a 2 L of oxygen presents for evaluation of shortness of breath over the last week or so. She reports her oxygen saturation has been about 85-88%. She reports cough productive of increased sputum. Plan for labs, chest x-ray, viral swabs Discharge Plan Discharge Prescriptions: No Action ferrous sulfate 325 mg (65 mg iron) tablet 325 mg PO DAILY 90 Days Qty: 90 2RF cyclobenzaprine 10 mg tablet 10 mg PO BID PRN (Reason: Muscle Spasm) Qty: 30 0RF Rx Instructions: monitor for sedation ivabradine 5 mg tablet 5 mg PO BID Qty: 60 6RF Rx Instructions: must administer with a meal/food trazodone 50 mg tablet 50 mg PO BEDTIME PRN (Reason: insomnia) Qty: 90 3RF teriparatide [Forteo] 20 mcg/dose (560mcg/2.24mL) pen injector 20 mcg subcut DAILY Qty: 2.24 11RF (DME) pen needle, diabetic [Comfort EZ Pen [place]] 32 gauge x 5/16 needle See Rx Instructions .Route Qty: 100 4RF Rx Instructions: As directed injects once a day metronidazole 0.75 % cream 1 appl topical BEDTIME PRN (Reason: redness) levalbuterol HCl 1.25 mg/3 mL Solution For Nebulization 1.25 mg inhalation Q4H PRN (Reason: Shortness Of Breath/Wheezing) Qty: 150 1RF (DME) nebulizers Misc See Rx Instructions .Route Qty: 1 0RF Rx Instructions: As directed (DME) compressor, for nebulizer Device See Rx Instructions .Route Qty: 1 0RF Rx Instructions: As directed (DME) Oxygen Home Use Kit See Rx Instructions .Route Qty: 1 0RF Rx Instructions: As directed prednisone 2.5 mg tablet 7.5 mg PO DAILY 30 Days Qty: 90 3RF Caltrate 600 plus D 600 mg-20 mcg (800 unit) tablet,chewable 1 tab PO DAILY Qty: 30 0RF cholecalciferol (vitamin D3) 250 mcg (10,000 unit) tablet 250 mcg PO DAILY Qty: 30 5RF famotidine 20 mg tablet 20 mg PO BID PRN (Reason: GERD) 90 Days Qty: 180 3RF (DME) back brace Misc See Rx Instructions .Route Qty: 1 0RF Rx Instructions: As directed Print Language: Filipino
[2025-04-17 14:12] LABS: MANUAL DIFF FLAG NO
[2025-04-17 14:14] LABS: Hematocrit 37.7 % (37.0-47.0); Hemoglobin 12.2 g/dl (12.0-16.0); Imm Gran Abs Auto 0.02 X10*3/uL (0.00-0.03); Imm Gran Pct Auto 0.4 % (0.0-0.4); Lymphocytes Absolute Auto 1.2 X10*3/uL (1.2-4.9); Mean Corpuscular HGB Conc 32.4 g/dl (31.0-35.0); Mean Corpuscular Hemoglobin 28.6 pg (27.0-33.0); Mean Corpuscular Volume 88.3 fL (80.0-98.0); NRBC Abs Auto 0.000 X10*3/uL (0.0-0.012); NRBC Pct Auto 0.0 /100WBC (0.0-0.2); Platelet Count 286 X10*3/uL (160-400); Red Blood Count 4.27 X10*6/uL (4.20-5.50); White Blood Count 5.3 X10*3/uL (4.8-10.8)
[2025-04-17 14:36] LABS: COVID-19 Test Negative (Negative); IDNOW Serial# 55D5AD1C; IDNOW Serial# 58CA691E; Influenza B2 Negative (Negative)
[2025-04-17 14:39] LABS: Alanine Aminotransferase 33 U/L (0-31); Albumin Level 3.4 g/dL (3.5-5.0); Anion Gap 12 (12-20); Aspartate Amino Transferase 43 U/L (5-31); Blood Urea Nitrogen 17 mg/dL (9-16); Calcium 10.1 mg/dL (8.4-10.2); Carbon Dioxide 27 mmol/L (22-29); Chloride 107 mmol/L (96-108); Creatinine Clr Calc Pharmacy 84.1; Estimated Glomerular Filt Rate > 60; Potassium 3.5 mmol/L (3.3-5.1); Sodium 142 mmol/L (135-145); Total Protein 9.4 g/dL (6.5-8.0)
--- NOTE | 2025-04-17 14:42 | PC.NURSE ---
pt with difficult lab draw for 2nd culture and labs, slight delay due to this, antibiotics ordered before sepsis protocol called pt alert, ls crackles 3/4 b/l, sr on monitor, skin wpd, ivf infusing
[2025-04-17 14:45] LABS: Alkaline Phosphatase 104 U/L (39-117)
--- NOTE | 2025-04-17 15:36 | PM.IMHP ---
[facility] Medical History ILD (interstitial lung disease) Supplemental oxygen dependent Pneumomediastinum Breast cancer screening by mammogram Overweight (BMI 25.0-29.9) Abnormal CT scan, chest Hemorrhoids with complication Colon cancer screening Generalized abdominal pain Visual impairment Duodenal ulcer GERD (gastroesophageal reflux disease) Obesity (BMI 30-39.9) Menometrorrhagia Seizure in childhood Sclerosing mesenteritis GERD without esophagitis Family History Father Myocardial infarct CVA (cerebral vascular accident) Mother No problems noted. Daughter No problems noted. Son No problems noted. Brother Substance abuse Surgical History History of esophagogastroduodenoscopy (EGD) Hx of colonoscopy Hx of cholecystectomy (~2005) Hx of hysterectomy Hx of section Social History Household Members: Family Housing: Apartment Do you presently have visiting nurse or other home services: No Alcohol intake: never Patient Tobacco Use Status: Never used Tobacco Tobacco use type: Cigarette e-Cigarette/Vaping Use: Never Used Second Hand Smoke Exposure: No Advance Directives: No Advance Directives Information Provided: Yes service: No Current occupational status: employed and unemployed Current occupation: [employer] Cognitive needs: No Hearing needs: No Vision needs: No Meds Allergies Allergy/AdvReac Type Severity Reaction Status Date / Time No Known Allergies (No Known Allergy Verified 04/17/25 13:22 Allergies*) Home Medications ?Medication ?Instructions ?Recorded ?Confirmed ?Last Taken ?Type metronidazole 0.75 % topical cream 1 appl topical BEDTIME PRN redness 05/09/24 04/02/25 09/21/24 History Physical Exam Vital Signs and Narrative: Vital Signs: Last Vital Signs Temp 97 F 04/17/25 13:20 Pulse 93 04/17/25 14:37 Resp 22 H 04/17/25 14:37 BP 116/71 04/17/25 14:37 Pulse Ox 98 04/17/25 14:37 O2 Del Method Room Air 04/17/25 14:37 O2 Flow Rate 3 04/17/25 14:37 Oxygen Flow Rate 3 04/17/25 13:20 BMI result Body Mass Index 27.4 Results Labs 04/17/25 14:05 04/17/25 14:05 Labs: Laboratory Results - last 24 hr 04/17/25 14:05 MCV 88.3 MCH 28.6 MCHC 32.4 RDW 13.9 Plt Count 286 MPV 10.3 Immature Gran % (Auto) 0.4 Neut % (Auto) 63.5 Lymph % (Auto) 22.4 [place] % (Auto) 10.5 Eos % (Auto) 2.4 Baso % (Auto) 0.8 Lymph # (Auto) 1.2 [place] # (Auto) 0.6 Eos # (Auto) 0.1 Baso # (Auto) 0.0 Abs Immat Gran (auto) 0.02 Absolute Neuts (auto) 3.4 Absolute Nucleated RBC 0.000 Nucleated RBC % (auto) 0.0 Anion Gap 12 Estim Creat Clear Calc 84.1 Estimated GFR > 60 Random Glucose 79 Lactic Acid 1.5 Calcium 10.1 Total Bilirubin 0.3 AST 43 H ALT 33 H Alkaline Phosphatase 104 Total Protein 9.4 H Albumin 3.4 L COVID-19 (NEISHA) Negative COVID-19 Clin Com See Note Influenza Type A (RENETTA) Negative Influenza Type B (RENETTA) Negative Influenza A & B Note See Note Imaging Radiologist's Impressions: Impressions Chest X-Ray 04/17/25 14:17 IMPRESSION: Acute on chronic airspace disease. Concerning for pulmonary fibrosis. Electronically signed by: All Cornejo MD 04/17/2025 02:18 PM EDT
--- NOTE | 2025-04-17 17:11 | P.HPHOSP_ITS ---
History of Present Illness Date of Service: 04/17/25 Chief Complaint: Shortness of breath 49 year old women with a history of interstitial lung disease presented to the ED with worsening sob and dry cough. She is on baseline 2 liters nc and increased her oxygen to 3 liters. she denied fever, chills, nausea, vomiting, diarrhea, recent travel, sick contacts. She follows closely with her pulmonolgist and has been on oral prednisone. Chest x-ray showing acute on chronic airspace disease concerning for pulmonary fibrosis. She was placed on 3 liters of NC with good effect. She was given Zosyn, prednisone and started on lactated Ringer's. She will be admitted for further management and treatment of acute hypoxic respiratory failure secondary to acute on chronic interstitial lung disease. Review of Systems 2 Review of Systems: Denies any recent fever chills or decrease in appetite respiratory See HPI cardiovascular Denied chest pain gastrointestinal denies any dysphagia abdominal pain nausea vomiting or diarrhea genitourinary denies any dysuria frequency or hematuria musculoskeletal denies any joint pain or swelling neuropsych denies any weakness or seizures all other systems reviewed are negative [facility] Medical History ILD (interstitial lung disease) Supplemental oxygen dependent Pneumomediastinum Breast cancer screening by mammogram Overweight (BMI 25.0-29.9) Abnormal CT scan, chest Hemorrhoids with complication Colon cancer screening Generalized abdominal pain Visual impairment Duodenal ulcer GERD (gastroesophageal reflux disease) Obesity (BMI 30-39.9) Menometrorrhagia Seizure in childhood Sclerosing mesenteritis GERD without esophagitis Family History Father Myocardial infarct CVA (cerebral vascular accident) Mother No problems noted. Daughter No problems noted. Son No problems noted. Brother Substance abuse Surgical History History of esophagogastroduodenoscopy (EGD) Hx of colonoscopy Hx of cholecystectomy (~2005) Hx of hysterectomy Hx of section Social History Household Members: Family Housing: Apartment Do you presently have visiting nurse or other home services: No Alcohol intake: never Patient Tobacco Use Status: Never used Tobacco Tobacco use type: Cigarette e-Cigarette/Vaping Use: Never Used Second Hand Smoke Exposure: No Advance Directives: No Advance Directives Information Provided: Yes service: No Current occupational status: employed and unemployed Current occupation: [employer] Cognitive needs: No Hearing needs: No Vision needs: No Meds Allergies Allergy/AdvReac Type Severity Reaction Status Date / Time No Known Allergies (No Known Allergy Verified 04/17/25 13:22 Allergies*) Active Medications: Current Medications Acetaminophen (Acetaminophen 325 Mg Tablet) 650 mg PO Q6H PRN PRN Reason: Pain, Mild 1-3,fever,headache Albuterol Sulfate (Albuterol Sulfate (0.083%) 2.5 Mg/3 Ml Vial.Neb) 2.5 mg INHALE RQ4H WHILE AWAKE NIKOLAI Calcium Carbonate (Calcium Carbonate 750 Mg Tab.Chew) 750 mg PO Q4H PRN PRN Reason: Heartburn Enoxaparin Sodium (Enoxaparin Sodium 40 Mg/0.4 Ml Syringe) 40 mg SUBCUT Q24H NIKOLAI Magnesium Hydroxide (Milk Of Magnesia 30 Ml Oral.Susp) 30 ml PO DAILY PRN PRN Reason: Constipation Melatonin (Melatonin 3 Mg Tablet) 6 mg PO BEDTIME PRN PRN Reason: Insomnia Methylprednisolone Sodium Succinate (Methylprednisolone Sod Succ 40 Mg/Ml Vial) 40 mg IVPUSH Q8H NIKOLAI Sodium Chloride (0.9 % Sodium Chloride Flush 3 Ml Syringe) 3 ml IVFLUSH QSHIFT NIKOLAI Home Medications ?Medication ?Instructions ?Recorded ?Confirmed ?Last Taken ?Type metronidazole 0.75 % topical cream 1 appl topical BEDT ALICIA PRN redness 05/09/24 04/17/25 09/21/24 History doxycycline hyclate 20 mg tablet 20 mg PO BID 04/17/25 04/17/25 04/17/25 History prednisolone acetate 1 % eye 1 drp ophthalmic-Left QID 04/17/25 04/17/25 04/17/25 History drops,suspension Physical Exam 2 Vital Signs and Narrative: Vital Signs: Last Vital Signs Temp 97 F 04/17/25 13:20 Pulse 95 04/17/25 16:27 Resp 18 04/17/25 16:27 BP 133/81 04/17/25 16:27 Pulse Ox 94 04/17/25 16:27 O2 Del Method Nasal Cannula 04/17/25 16:27 O2 Flow Rate 3 04/17/25 16:27 Oxygen Flow Rate 3 04/17/25 13:20 BMI result Body Mass Index 27.4 Results Labs 04/17/25 14:05 04/17/25 14:05 Labs: Laboratory Results - last 24 hr 04/17/25 14:05 MCV 88.3 MCH 28.6 MCHC 32.4 RDW 13.9 Plt Count 286 MPV 10.3 Immature Gran % (Auto) 0.4 Neut % (Auto) 63.5 Lymph % (Auto) 22.4 [place] % (Auto) 10.5 Eos % (Auto) 2.4 Baso % (Auto) 0.8 Lymph # (Auto) 1.2 [place] # (Auto) 0.6 Eos # (Auto) 0.1 Baso # (Auto) 0.0 Abs Immat Gran (auto) 0.02 Absolute Neuts (auto) 3.4 Absolute Nucleated RBC 0.000 Nucleated RBC % (auto) 0.0 Anion Gap 12 Estim Creat Clear Calc 84.1 Estimated GFR > 60 Random Glucose 79 Lactic Acid 1.5 Calcium 10.1 Total Bilirubin 0.3 AST 43 H ALT 33 H Alkaline Phosphatase 104 Total Protein 9.4 H Albumin 3.4 L COVID-19 (NEISHA) Negative COVID-19 Clin Com See Note Influenza Type A (RENETTA) Negative Influenza Type B (RENETTA) Negative Influenza A & B Note See Note Imaging Radiologist's Impressions: Impressions Chest X-Ray 04/17/25 14:17 IMPRESSION: Acute on chronic airspace disease. Concerning for pulmonary fibrosis. Electronically signed by: All Cornejo MD 04/17/2025 02:18 PM EDT Assessment and Plan (1) ILD (interstitial lung disease): Status: Acute Plan 49 year old women admitted with acute on chronic hypoxic respiratory failure secondary to ILD Acute on chronic hypoxic respiratory failure secondary to ILD hx of ILD since getting covid several years ago She follow closely with Dr. Greene, [facility] [place] pulmonology She has been on prednisone 7.5mg daily Start IV solumedrol, scheduled duonebs, empiric IV zosyn and doxycycline consult pulmonology continue supplemental oxygen to keep o2 sats >91% check RPP Iron def anemia stable HH continue iron supp Transaminitis mild elevation baseline GERD PPI insomnia trazadone DVT prophylaxis with lovenox Full code Quality Stroke Does the patient have a stroke diagnosis?: No VTE Prior VTE?: No VTE Risk Level:: Medical - moderate - high VTE Device Contraindication: Treatment Not Indicated VTE Drug Contraindication: N/A - Med Ordered
--- NOTE | 2025-04-17 17:19 | PHA.MEDREC ---
Addendum entered by Clayton Templeton, PharmD 04/17/25 17:47: MED REC CHECKED BY [facility] Original Note: Pharmacy Consult ? Medication Reconciliation Pharmacy has completed the medication reconciliation. Spoke with pt, utilizing cafeteria table attendant, and she was able to confirm her medications. Pt confirmed she stopped the Atropine eye drops today (per her Dr) but she is still continuing to take the Prednisolone eye drops, 1 drop in the left QID, pt stopped taking Omeprazole months ago and states she takes Famotidine BID PRN and pt confirmed she has not been able to start the Forteo injection, stating she is waiting for her pharmacy to fill that.
[2025-04-17] MEDS: Albuterol Sulfate (0.083%) 2.5 MG/3 ML VIAL.NEB INHALE (19:42)
[2025-04-18] VITALS (10 sets, daily range): BP systolic 113–139; BP diastolic 71–90; PULSE 72–109; RESP 16–122; TEMP 35.9–36.7; O2SAT 93–99; BMI 28.2
[2025-04-18 05:14] LABS: Hematocrit 32.2 % (37.0-47.0); Hemoglobin 10.1 g/dl (12.0-16.0); Mean Corpuscular HGB Conc 31.4 g/dl (31.0-35.0); Mean Corpuscular Hemoglobin 28.2 pg (27.0-33.0); Mean Corpuscular Volume 89.9 fL (80.0-98.0); NRBC Abs Auto 0.000 X10*3/uL (0.0-0.012); NRBC Pct Auto 0.0 /100WBC (0.0-0.2); Platelet Count 257 X10*3/uL (160-400); Red Blood Count 3.58 X10*6/uL (4.20-5.50); White Blood Count 3.4 X10*3/uL (4.8-10.8)
--- NOTE | 2025-04-18 05:19 | HO.NURTONUR ---
Chief Complaint: Shortness of breath 49ye old, woman, full code, NKA, regular diet, with a PMHx of interstitial lung disease from covid years ago, presented to the ED with worsening sob and dry cough. She is on baseline 2 liters NC and increased her oxygen to 3 liters. she denied fever, chills, nausea, vomiting, diarrhea, recent travel, sick contacts. She follows closely with her pulmonolgist and has been on oral prednisone. Chest x-ray showing acute on chronic airspace disease concerning for pulmonary fibrosis. She was placed on 3 liters of NC with good effect. She was given Zosyn, prednisone and started on lactated Ringer's. She will be admitted for further management and treatment of acute hypoxic respiratory failure secondary to acute on chronic interstitial lung disease. 20g IV to the left AC and a 22g to the right forearm Plan: Start IV solumedrol, scheduled duonebs, empiric IV zosyn and doxycycline consult pulmonology continue supplemental oxygen to keep o2 sats >91%
[2025-04-18 05:28] LABS: Alanine Aminotransferase 48 U/L (0-31); Albumin Level 2.8 g/dL (3.5-5.0); Alkaline Phosphatase 100 U/L (39-117); Anion Gap 8 (12-20); Aspartate Amino Transferase 61 U/L (5-31); Blood Urea Nitrogen 22 mg/dL (9-16); Calcium 9.1 mg/dL (8.4-10.2); Carbon Dioxide 22 mmol/L (22-29); Chloride 115 mmol/L (96-108); Creatinine Clr Calc Pharmacy 62.8; Estimated Glomerular Filt Rate > 60; Potassium 3.8 mmol/L (3.3-5.1); Sodium 141 mmol/L (135-145); Total Protein 7.8 g/dL (6.5-8.0)
[2025-04-18] MEDS: Albuterol Sulfate (0.083%) 2.5 MG/3 ML VIAL.NEB INHALE ×4 (07:57→19:20)
[2025-04-18 08:59] LABS: Chlamydia pneumoniae PCR Not Detected (Not Detect.); Coronavirus 229E PCR Not Detected (Not Detect.); Coronavirus HKU1 PCR Not Detected (Not Detect.); Coronavirus NL63 PCR Not Detected (Not Detect.); Coronavirus OC43 PCR Not Detected (Not Detect.); RSV PCR Not Detected (Not Detect.); Rhino/Enterovirus PCR Not Detected (Not Detect.)
--- NOTE | 2025-04-18 09:21 | HO.PM.IMPN ---
Subjective Subjective Date of Service: 04/18/25 Review of Systems Follow up acute on chronic interstitial lung disease exacerbation Still with some shortness of breath with ambulation Physical Exam Vital Signs: Vital Signs: Last Vital Signs Temp 97.7 F 04/18/25 06:00 Pulse 73 04/18/25 07:57 Resp 18 04/18/25 06:00 BP 139/90 H 04/18/25 06:00 Pulse Ox 94 04/18/25 06:00 O2 Del Method Nasal Cannula 04/18/25 06:00 O2 Flow Rate 2 04/18/25 06:00 Oxygen Flow Rate 3 04/17/25 13:20 BMI result Body Mass Index 27.4 Objective Data Active Medications Acetaminophen (Acetaminophen 325 Mg Tablet) 650 mg PO Q6H PRN PRN Reason: Pain, Mild 1-3,fever,headache Albuterol Sulfate (Albuterol Sulfate (0.083%) 2.5 Mg/3 Ml Vial.Neb) 2.5 mg INHALE RQ4H WHILE AWAKE [facility] Last Admin: 04/18/25 07:57 Dose: 2.5 mg Documented By: ALBERT Calcium Carbonate (Calcium Carbonate 750 Mg Tab.Chew) 750 mg PO Q4H PRN PRN Reason: Heartburn Enoxaparin Sodium (Enoxaparin Sodium 40 Mg/0.4 Ml Syringe) 40 mg SUBCUT Q24H [facility] Last Admin: 04/17/25 17:44 Dose: 40 mg Documented By: TESHA Famotidine (Famotidine 20 Mg Tablet) 20 mg PO BID PRN PRN Reason: GERD Ferrous Sulfate (Ferrous Sulfate 324 Mg Tablet.Dr) 324 mg PO DAILY [facility] Piperacillin Sod/Tazobactam (Sod 4.5 gm/ Sodium Chloride) 100 mls @ 200 mls/hr IV Q6H [facility] Last Infusion: 04/18/25 06:43 Dose: Infused Documented By: HAO Doxycycline Hyclate 100 mg/ (Sodium Chloride) 250 mls @ 166.67 mls/hr IV Q12H [facility] Last Infusion: 04/18/25 07:50 Dose: Infused Documented By: GIFTY Magnesium Hydroxide (Milk Of Magnesia 30 Ml Oral.Susp) 30 ml PO DAILY PRN PRN Reason: Constipation Melatonin (Melatonin 3 Mg Tablet) 6 mg PO BEDTIME PRN PRN Reason: Insomnia Methylprednisolone Sodium Succinate (Methylprednisolone Sod Succ 40 Mg/Ml Vial) 40 mg IVPUSH Q8H [facility] Last Admin: 04/18/25 06:03 Dose: 40 mg Documented By: HAO Prednisolone Acetate (Prednisolone Acetate 1 % Oph Susp 5 Ml Drpbtl) 1 drop EYE-LEFT QID [facility] Sodium Chloride (0.9 % Sodium Chloride Flush 3 Ml Syringe) 3 ml IVFLUSH QSHIFT [facility] Last Admin: 04/18/25 07:12 Dose: Not Given Documented By: GIFTY Non-Admin Reason: IV Running Trazodone HCl (Trazodone Hcl 50 Mg Tablet) 50 mg PO BEDTIME PRN PRN Reason: Insomnia Labs 04/18/25 03:59 04/18/25 03:59 Labs: Laboratory Results - last 24 hr 04/17/25 04/18/25 14:05 03:59 MCV 88.3 89.9 MCH 28.6 28.2 MCHC 32.4 31.4 RDW 13.9 13.7 Plt Count 286 257 MPV 10.3 11.2 Immature Gran % (Auto) 0.4 Neut % (Auto) 63.5 Lymph % (Auto) 22.4 [place] % (Auto) 10.5 Eos % (Auto) 2.4 Baso % (Auto) 0.8 Lymph # (Auto) 1.2 [place] # (Auto) 0.6 Eos # (Auto) 0.1 Baso # (Auto) 0.0 Abs Immat Gran (auto) 0.02 Absolute Neuts (auto) 3.4 Absolute Nucleated RBC 0.000 0.000 Nucleated RBC % (auto) 0.0 0.0 Anion Gap 12 8 L Estim Creat Clear Calc 84.1 62.8 Estimated GFR > 60 > 60 Random Glucose 79 170 H Lactic Acid 1.5 Calcium 10.1 9.1 D Total Bilirubin 0.3 0.2 AST 43 H 61 H ALT 33 H 48 H Alkaline Phosphatase 104 100 Total Protein 9.4 H 7.8 Albumin 3.4 L 2.8 L COVID-19 (NEISHA) Negative COVID-19 Clin Com See Note Influenza Type A (RENETTA) Negative Influenza Type B (RENETTA) Negative Influenza A & B Note See Note Assessment and Plan (1) ILD (interstitial lung disease): Status: Acute Plan 49 year old women admitted with acute on chronic hypoxic respiratory failure secondary to ILD Acute on chronic hypoxic respiratory failure secondary to ILD hx of ILD since getting covid several years ago She follow closely with Dr. Greene, [facility] [place] pulmonology She has been on prednisone 7.5mg daily continue IV solumedrol, scheduled duonebs, empiric IV zosyn and doxycycline pulmonology consult pending continue supplemental oxygen to keep o2 sats >91% RPP pending Iron def anemia stable HH continue iron supp Transaminitis mild elevation baseline GERD PPI insomnia trazadone DVT prophylaxis with lovenox Full code Still short of breath with ambulation. Patient continues to require IV Solu-Medrol, scheduled DuoNebs and empiric IV antibiotics. Specialty consultation is pending Quality Stroke Does the patient have a stroke diagnosis?: No VTE Prior VTE?: No VTE Risk Level:: Medical - moderate - high VTE Device Contraindication: Treatment Not Indicated VTE Drug Contraindication: N/A - Med Ordered
[2025-04-18] MEDS: Ferrous Sulfate 324 MG TABLET.DR PO (09:44)
[2025-04-18] MEDS: prednisoLONE Acetate 1 % Oph Susp 5 ML DRPBTL 1 DROP EYE-LEFT ×3 (10:11→21:23)
[2025-04-18 10:23] LABS: Influenza A H1 PCR Not Detected (Not Detect.); Influenza A H1-2009 PCR Not Detected (Not Detect.); Influenza A H3 PCR Not Detected (Not Detect.); SARS-CoV-2 PCR Not Detected (Not Detect.)
--- NOTE | 2025-04-18 12:50 | MHC.CM.PN ---
Pt. lives with her dtr, she does not use home health services. She has home O2 from [employer]. PCP confirmed: Dr. Garcia, HCP discussed, pt. would like to complete form here, it will be added to chart. Family to transport home at DC. DCP: home, self care. CM to follow for DC planning.
[2025-04-18] MEDS: 0.9 % Sodium Chloride Flush 3 ML SYRINGE IVFLUSH ×3 (12:55→21:24)
--- NOTE | 2025-04-18 16:14 | P.CONPL_ITS ---
History of Present Illness History of Present Illness Consult date: 04/18/25 Chief complaint: acute hypoxic respiratory failure Narrative: This is an inpatient pulmonary consultation. The patient 49 year old women with a history of interstitial lung disease presented to the ED with worsening sob and dry cough. She is on baseline 2 liters nc and increased her oxygen to 3 liters. she denied fever, chills, nausea, vomiting, diarrhea, recent travel, sick contacts. She follows closely with her pulmonolgist and has been on oral prednisone 7.5mg. Chest x-ray personally reviewed by me, showing acute on chronic airspace disease concerning for pulmonary fibrosis. She was placed on 3 liters of NC with good effect. She was given Zosyn, prednisone and started on lactated Ringer's. She will be admitted for further management and treatment of acute hypoxic respiratory failure secondary to acute on chronic interstitial lung disease. Review of Systems 2 Constitutional: Constitutional: Denies daytime sleepiness, Denies excessive sweating, Denies fatigue, Denies fever(s), Denies lethargy, Denies malaise, Denies night sweats, Denies snoring and Denies weight loss Eyes: Eyes: Denies blurry vision and Denies itchy eyes ENT: Denies nasal congestion, Denies post nasal drip, Denies sinus pain, Denies sinus pressure and Reports other ( Thrush) Cardiovascular: Cardiovascular: Denies chest pain, Denies pedal edema, Reports dyspnea, Reports dyspnea on exertion, Denies orthopnea and Denies paroxysmal nocturnal dyspnea Respiratory: Respiratory: Denies cough, Denies hemoptysis, Denies excessive phlegm production, Reports dyspnea, Reports dyspnea on exertion, Denies snoring and Denies wheezing Gastrointestinal: Gastrointestinal: Denies abdominal pain and Denies heartburn Musculoskeletal: Musculoskeletal: Denies myalgias, Denies arthralgias and Denies joint swelling Integumentary/Breasts: Skin/Breast: Denies rash Neurologic: Denies memory loss and Denies seizure-like activity Psychiatric: Psychiatric: Denies abnormal sleep pattern, Denies anxiety and Denies memory loss Endocrine: Endocrine: Denies excessive sweating, Denies fatigue and Denies heat intolerance Hematologic/Lymphatic: Hematologic/Lymphatic: Denies easy bruising Allergic/Immunologic: Allergic/Immunologic: Denies itchy eyes, Denies seasonal rhinorrhea and Denies wheezing PMFSH Past Medical History Medical History (Reviewed 04/02/25 @ 14:05 by Alisa Santiago [facility]) ILD (interstitial lung disease) Supplemental oxygen dependent Pneumomediastinum Breast cancer screening by mammogram Overweight (BMI 25.0-29.9) Abnormal CT scan, chest Hemorrhoids with complication Colon cancer screening Generalized abdominal pain Visual impairment Duodenal ulcer GERD (gastroesophageal reflux disease) Obesity (BMI 30-39.9) Menometrorrhagia Seizure in childhood Sclerosing mesenteritis GERD without esophagitis Family History Family History (Reviewed 04/02/25 @ 14:05 by Alisa Santiago [facility]) Father Myocardial infarct CVA (cerebral vascular accident) Mother No problems noted. Daughter No problems noted. Son No problems noted. Brother Substance abuse Surgical History Surgical History (Reviewed 04/02/25 @ 14:05 by Alisa Santiago [facility]) History of esophagogastroduodenoscopy (EGD) Hx of colonoscopy Hx of cholecystectomy (~2005) Hx of hysterectomy Hx of section Social History Social History (Reviewed 04/02/25 @ 14:05 by Alisa Santiago [facility]) Household Members: Children Housing: House Do you presently have visiting nurse or other home services: No Alcohol intake: never Patient Tobacco Use Status: Never used Tobacco Tobacco use type: Cigarette e-Cigarette/Vaping Use: Never Used Second Hand Smoke Exposure: No service: No Current occupational status: employed and unemployed Current occupation: [employer] Cognitive needs: No Hearing needs: No Vision needs: No Meds Allergies Allergy/AdvReac Type Severity Reaction Status Date / Time No Known Allergies (No Known Allergy Verified 04/17/25 13:22 Allergies*) Active Medications: Current Medications Acetaminophen (Acetaminophen 325 Mg Tablet) 650 mg PO Q6H PRN PRN Reason: Pain, Mild 1-3,fever,headache Albuterol Sulfate (Albuterol Sulfate (0.083%) 2.5 Mg/3 Ml Vial.Neb) 2.5 mg INHALE RQ4H WHILE AWAKE NIKOLAI Last Admin: 04/18/25 15:40 Dose: 2.5 mg Calcium Carbonate (Calcium Carbonate 750 Mg Tab.Chew) 750 mg PO Q4H PRN PRN Reason: Heartburn Enoxaparin Sodium (Enoxaparin Sodium 40 Mg/0.4 Ml Syringe) 40 mg SUBCUT Q24H NIKOLAI Last Admin: 04/17/25 17:44 Dose: 40 mg Famotidine (Famotidine 20 Mg Tablet) 20 mg PO BID PRN PRN Reason: GERD Ferrous Sulfate (Ferrous Sulfate 324 Mg Tablet.Dr) 324 mg PO DAILY [facility] Last Admin: 04/18/25 09:44 Dose: 324 mg Piperacillin Sod/Tazobactam (Sod 4.5 gm/ Sodium Chloride) 100 mls @ 200 mls/hr IV Q6H [facility] Last Infusion: 04/18/25 13:25 Dose: Infused Doxycycline Hyclate 100 mg/ (Sodium Chloride) 250 mls @ 166.67 mls/hr IV Q12H [facility] Last Infusion: 04/18/25 07:50 Dose: Infused Magnesium Hydroxide (Milk Of Magnesia 30 Ml Oral.Susp) 30 ml PO DAILY PRN PRN Reason: Constipation Melatonin (Melatonin 3 Mg Tablet) 6 mg PO BEDTIME PRN PRN Reason: Insomnia Methylprednisolone Sodium Succinate (Methylprednisolone Sod Succ 40 Mg/Ml Vial) 40 mg IVPUSH Q8H [facility] Last Admin: 04/18/25 15:11 Dose: 40 mg Prednisolone Acetate (Prednisolone Acetate 1 % Oph Susp 5 Ml Drpbtl) 1 drop EYE-LEFT QID [facility] Last Admin: 04/18/25 12:55 Dose: Not Given Sodium Chloride (0.9 % Sodium Chloride Flush 3 Ml Syringe) 3 ml IVFLUSH QSHIFT [facility] Last Admin: 04/18/25 12:55 Dose: 3 ml Trazodone HCl (Trazodone Hcl 50 Mg Tablet) 50 mg PO BEDTIME PRN PRN Reason: Insomnia Home Medications ?Medication ?Instructions ?Recorded ?Confirmed ?Last Taken ?Type metronidazole 0.75 % topical cream 1 appl topical BEDT ALICIA PRN redness 05/09/24 04/17/25 09/21/24 History doxycycline hyclate 20 mg tablet 20 mg PO BID 04/17/25 04/17/25 04/17/25 History prednisolone acetate 1 % eye 1 drp ophthalmic-Left QID 04/17/25 04/17/25 04/17/25 History drops,suspension Physical Exam 2 Vital Signs: Vital Signs: Last Vital Signs Temp 97.6 F 04/18/25 16:00 Pulse 80 04/18/25 16:00 Resp 20 04/18/25 16:00 BP 139/78 04/18/25 16:00 Pulse Ox 96 04/18/25 16:00 O2 Del Method Nasal Cannula 04/18/25 16:00 O2 Flow Rate 3 04/18/25 16:00 Oxygen Flow Rate 3 04/17/25 13:20 BMI result Body Mass Index 27.4 Const: General: no acute distress and alert Nutritional Appearance: not obese Orientation/consciousness: Other orientation findings ( oriented) HEENT: Head: Yes atraumatic Eyes: General: appearance normal, both eyes and all related structures S clerae: sclerae normal EOM: EOMs intact bilaterally Neck: Neck: Yes supple Lymphatic: no lymphadenopathy noted Chest: Chest palpation & inspection: normal inspection of the chest Resp: Effort & Inspection: normal respiratory effort Auscultation: rales Cardio: Rate: regular rate Rhythm: regular rhythm Heart sounds: no gallops, no murmurs and no rubs Skin: General skin exam: other ( warm) Extrem: General: No clubbing, No cyanosis and No edema Results Laboratory Findings 04/18/25 03:59 04/18/25 03:59 Abnormal lab findings: Abnormal Labs 04/17/25 04/18/25 14:05 03:59 WBC 3.4 L RBC 3.58 L Hgb 10.1 L Hct 32.2 L Chloride 115 H Anion Gap 8 L BUN 17 H 22 H Random Glucose 170 H AST 43 H 61 H ALT 33 H 48 H Total Protein 9.4 H Albumin 3.4 L 2.8 L Microbiology: Microbiology 04/17/25 14:05 Blood - Venous Blood Culture - Preliminary No growth after 24 hours. 04/17/25 13:44 Blood - Venous Blood Culture - Preliminary No growth after 24 hours. Assessment and Plan (1) Acute on chronic hypoxic respiratory failure: Status: Acute (2) ILD (interstitial lung disease): Status: Acute (3) Pneumonia: Qualifiers: Laterality: unspecified laterality Lung location: unspecified part of lung Pneumonia type: due to unspecified organism Qualified Code(s): J18.9 - Pneumonia, unspecified organism Status: Acute (4) Pneumonitis: Status: Acute (5) Crohn's disease of colon: Qualifiers: Digestive disease complication type: unspecified complication Qualified Code(s): K50.119 - Crohn's disease of large intestine with unspecified complications Status: Acute Plan The patient is presenting with a flare-up of her interstitial lung disease. Appears to have significant pneumonitis on her x-ray increased oxygen requirements. Respiratory viral panel was negative. The patient has biopsy- proven Crohn's and therefore need to consider extraintestinal manifestations off her Crohn's with significant pneumonitis. Doubt HPS. Additional blood work will be requested. The patient seems to be responding to high-dose steroids. Although steroid sparing agents may be viable option for her. recommendations: Continue broad-spectrum antibiotics, she check a procalcitonin level continue Solu-Medrol blood work requested titrate oxygen to maintain a pulse ox above 90% follow-up with outpatient pulmonary Procedures Date of Service Date of Service: 04/18/25
[2025-04-19 03:20] VITALS: BP 128/69; PULSE 67; RESP 16; TEMP 36.2; O2SAT 100
[2025-04-19 07:56] VITALS: BP 126/64; PULSE 60; RESP 18; TEMP 36.1; O2SAT 96
[2025-04-19] MEDS: Albuterol Sulfate (0.083%) 2.5 MG/3 ML VIAL.NEB INHALE ×2 (08:17→11:22)
[2025-04-19 08:21] VITALS: PULSE 79; RESP 20; O2SAT 96
[2025-04-19] MEDS: Ferrous Sulfate 324 MG TABLET.DR PO (09:10)
[2025-04-19] MEDS: prednisoLONE Acetate 1 % Oph Susp 5 ML DRPBTL 1 DROP EYE-LEFT ×2 (10:12→12:17)
--- NOTE | 2025-04-19 11:24 | P.DS_ITS ---
DS: Providers Provider Date of Service: 04/19/25 Date of admission: 04/17/25 17:06 Date of discharge: 04/19/25 Primary care physician: Nolberto Garcia MD Consults: 04/17/25 15:48 Consult to Pulmonology Routine Consulting Provider: [facility] Pulmonology Services Reason for consultation: ILF flare 04/17/25 17:09 Consult to Pulmonology Routine Consulting Provider: [facility] Pulmonology Services Reason for consultation: ILD exacerabation Attending physician on discharge: Columba Gary Discharging clinician: Cheyanne Riddle DS: Diagnosis Discharge Diagnosis (1) Acute on chronic hypoxic respiratory failure: Status: Acute (2) ILD (interstitial lung disease): Status: Acute (3) Pneumonia: Status: Acute (4) Pneumonitis: Status: Acute (5) Crohn's disease of colon: Status: Acute DS: Summary Hospital Course Hospital Course: From H&P on the day of admission 49 year old women with a history of interstitial lung disease presented to the ED with worsening sob and dry cough. She is on baseline 2 liters nc and increased her oxygen to 3 liters. she denied fever, chills, nausea, vomiting, diarrhea, recent travel, sick contacts. She follows closely with her pulmonolgist and has been on oral prednisone. Chest x- ray showing acute on chronic airspace disease concerning for pulmonary fibrosis. She was placed on 3 liters of NC with good effect. She was given Zosyn, prednisone and started on lactated Ringer's. She will be admitted for further management and treatment of acute hypoxic respiratory failure secondary to acute on chronic interstitial lung disease. Acute on chronic hypoxic respiratory failure secondary to ILD hx of ILD since getting covid several years ago. She follow closely with Dr. Greene, [facility] pulmonology, and is chronically on prednisone 7.5mg daily. Treated with IV solumedrol, scheduled duonebs, empiric antibiotics. Full respiratory pathogen panel was negative. She was maintained on 2-3 L supplemental oxygen. She was seen by pulmonology, who recommended outpatient referral to specialist in [place], empiric antibiotics and steroids. She was re-evaluated by respiratory therapy for home oxygen, she is at 2 L at baseline, she now qualifies for 3 L via nasal cannula with ambulation and can remain on 2 L nasal cannula at rest. Her breathing gradually improved with above management and she is now medically acceptable for discharge home. She will be discharged home with a steroid taper and to complete 5 more days of antibiotics. Time Attestation Discharge Coordination Time (in mins): 36 Quality: Safe Use of Opioids Does Pt have an Active Cancer Diagnosis on the Problem List?: No Quality: Stroke Does the patient have a stroke diagnosis?: No Physical Exam Vital Signs: Vital Signs: Last Vital Signs Temp 97 F 04/19/25 07:56 Pulse 79 04/19/25 08:21 Resp 20 04/19/25 08:21 BP 126/64 04/19/25 07:56 Pulse Ox 96 04/19/25 07:56 O2 Del Method Nasal Cannula 04/19/25 07:56 O2 Flow Rate 2 04/19/25 07:56 Oxygen Flow Rate 3 04/17/25 13:20 BMI result Body Mass Index 28.2 Const: General: cooperative, comfortable, alert and awake Nutritional Appearance: average body habitus Resp: Effort & Inspection: normal respiratory effort, able to speak in complete sentences, no respiratory distress and no use of accessory muscles DS: Data Data Completed and Pending Labs on day of discharge: Preliminary micro results at discharge 04/17/25 14:05 Blood Culture - Preliminary Blood - Venous No growth after 24 hours. 04/17/25 13:44 Blood Culture - Preliminary Blood - Venous No growth after 24 hours. Discharge Plan Discharge Anticipated Discharge Date/Time: 04/19/25 11:30 Patient Disposition: Home, Self-Care Discharge Diagnosis: Acute decompensation of ILD Referrals: Po,Nolberto Boykin MD [Primary Care Provider, Internal Medicine] - 1 Week Discharge Medications: New prednisone 10 mg tablet See Taper PO DIRECTED Qty: 70 0RF Taper: Prednisone 40 mg daily for 7 Days and 0 Hour 30 mg daily for 7 Days and 0 Hour 20 mg daily for 7 Days and 0 Hour 10 mg daily for 7 Days and 0 Hour Rx Instructions: see taper instructions cefpodoxime 200 mg tablet 200 mg PO BID 5 Days Qty: 10 0RF Rx Instructions: must administer with a meal/food doxycycline monohydrate 100 mg tablet 100 mg PO BID 5 Days Qty: 10 0RF Continued ferrous sulfate 325 mg (65 mg iron) tablet 325 mg PO DAILY 90 Days Qty: 90 2RF ivabradine 5 mg tablet 5 mg PO BID Qty: 60 6RF Rx Instructions: must administer with a meal/food trazodone 50 mg tablet 50 mg PO BEDTIME PRN (Reason: insomnia) Qty: 90 3RF metronidazole 0.75 % cream 1 appl topical BEDTIME PRN (Reason: redness) prednisolone acetate 1 % drops,suspension 1 drp ophthalmic-Left QID cholecalciferol (vitamin D3) 250 mcg (10,000 unit) tablet 250 mcg PO DAILY Qty: 30 5RF famotidine 20 mg tablet 20 mg PO BID PRN (Reason: GERD) 90 Days Qty: 180 3RF Held prednisone 2.5 mg tablet 7.5 mg PO DAILY 30 Days Qty: 90 3RF Hold Instructions: Hold until you complete prednisone taper Discontinued doxycycline hyclate 20 mg tablet 20 mg PO BID No Action (DME) pen needle, diabetic [Comfort EZ Pen [place]] 32 gauge x 5/16 needle See Rx Instructions .Route Qty: 100 4RF Rx Instructions: As directed injects once a day (DME) nebulizers Misc See Rx Instructions .Route Qty: 1 0RF Rx Instructions: As directed (DME) compressor, for nebulizer Device See Rx Instructions .Route Qty: 1 0RF Rx Instructions: As directed (DME) Oxygen Home Use Kit See Rx Instructions .Route Qty: 1 0RF Rx Instructions: As directed (DME) back brace Misc See Rx Instructions .Route Qty: 1 0RF Rx Instructions: As directed Discharge Orders: Discharge Order (Routine); Ordered 04/19/25 Ordered By: Cheyanne Riddle Activity on Discharge: As tolerated Stand Alone Forms: Patient Portal Discharge page Print Language: Persian Care Plan Goals: See below Health Concerns: Decompensation of ILD Plan of Treatment: Complete taper of prednisone as prescribed Complete antibiotics as prescribed Call to schedule follow-up appointment in Pulmonary Clinic Referral to [place] as per pulmonology you now qualify for 3L supplemental oxygen with ambulation, can continue using 2L NC at rest Assessment: See discharge summary
[2025-04-19 11:25] VITALS: PULSE 83; RESP 20; O2SAT 97
[2025-04-19 11:40] VITALS: PULSE 107; PULSE 112; PULSE 119; PULSE 123; O2SAT 83; O2SAT 89; O2SAT 91
--- NOTE | 2025-04-19 12:20 | PM.PNPUL ---
Subjective Subjective Date of Service: 04/19/25 Interval history: The patient was seen on exam. She is feeling a little better. She wants to go home. She continues on her nasal cannula. I did provide her with an Oxymizer pendant for her to use when she walks around so she does not desaturate as much. We did talk about her oxygen range. The patient had a negative respiratory viral panel. Her rest of the blood work is pending. She is looking to get a 2nd opinion regarding her pulmonary issues. Objective Data Labs 04/18/25 03:59 04/18/25 03:59 Microbiology Microbiology Results: Microbiology 04/17/25 14:05 Blood - Venous Blood Culture - Preliminary No growth after 24 hours. 04/17/25 13:44 Blood - Venous Blood Culture - Preliminary No growth after 24 hours. Review of Systems Constitutional: Denies daytime sleepiness, Denies excessive sweating, Denies fatigue, Denies fever(s), Denies lethargy, Denies malaise, Denies night sweats, Denies snoring and Denies weight loss Eyes: Denies blurry vision and Denies itchy eyes Denies nasal congestion, Denies post nasal drip, Denies sinus pain, Denies sinus pressure and Reports other ( Thrush) Cardiovascular: Denies chest pain, Denies pedal edema, Reports dyspnea, Reports dyspnea on exertion, Denies orthopnea and Denies paroxysmal nocturnal dyspnea Respiratory: Denies cough, Denies hemoptysis, Denies excessive phlegm production, Reports dyspnea, Reports dyspnea on exertion, Denies snoring and Denies wheezing Gastrointestinal: Denies abdominal pain and Denies heartburn Musculoskeletal: Denies myalgias, Denies arthralgias and Denies joint swelling Skin/Breast: Denies rash Denies memory loss and Denies seizure-like activity Psychiatric: Denies abnormal sleep pattern, Denies anxiety and Denies memory loss Endocrine: Denies excessive sweating, Denies fatigue and Denies heat intolerance Hematologic/Lymphatic: Denies easy bruising Allergic/Immunologic: Denies itchy eyes, Denies seasonal rhinorrhea and Denies wheezing Physical Exam Vital Signs: Vital Signs: Last Vital Signs Temp 97 F 04/19/25 07:56 Pulse 83 04/19/25 11:25 Resp 20 04/19/25 11:25 BP 126/64 04/19/25 07:56 Pulse Ox 96 04/19/25 07:56 O2 Del Method Nasal Cannula 04/19/25 07:56 O2 Flow Rate 2 04/19/25 07:56 Oxygen Flow Rate 3 04/17/25 13:20 BMI result Body Mass Index 28.2 Const: General: no acute distress and alert Nutritional Appearance: not obese Orientation/consciousness: Other orientation findings ( oriented) HEENT: Head: Yes atraumatic Eyes: General: appearance normal, both eyes and all related structures Sclerae: sclerae normal EOM: EOMs intact bilaterally Neck: Neck: Yes supple Lymphatic: no lymphadenopathy noted Chest: Chest palpation & inspection: normal inspection of the chest Resp: Effort & Inspection: normal respiratory effort Auscultation: rales Cardio: Rate: regular rate Rhythm: regular rhythm Heart sounds: no gallops, no murmurs and no rubs Skin: General skin exam: other ( warm) Extrem: General: No clubbing, No cyanosis and No edema Procedures Date of Service Date of Service: 04/19/25 Assessment and Plan Assessment and plan (1) Pneumonitis: Status: Acute (2) Acute on chronic hypoxic respiratory failure: Status: Acute (3) ILD (interstitial lung disease): Status: Acute (4) Supplemental oxygen dependent: Status: Acute Plan Prednisone taper Continue oxygen supplementation. Should use the Oxymizer pendant with activity outside of the home and titrate her oxygen to maintain a pulse ox between 88 to 95% She is interested in pursuing a pulmonary evaluation at a tertiary center Will follow-up with her director of events to further address the inflammatory condition of her eye. I did request records sent with the primary care in case this uveitis. The patient needs to follow up with GI regarding the question of Crohn's or colitis that indeed may cause extra intestinal manifestations in the lungs. Follow-up with outpatient pulmonary Time Spent With Patient Time: Total time managing care of this patient today ____ minutes. Progress Note: Quality Stroke Does the patient have a stroke diagnosis?: No
--- NOTE | 2025-04-19 12:44 | MHC.CM.PN ---
Patient is discharged today to home self care. She has arranged for private transportation home.
[2025-04-19 14:16] VITALS: BP 126/67; PULSE 99; RESP 20; TEMP 36.6; O2SAT 97
== END 2025-04-19 13:34 | disposition home or self-care (01) | DRG 142 ==
LOC: HO.ED 13:49 → HO.EDOVER 17:19 → HO.S3 04-18 15:02
PROVIDERS: Hospitalist; Physician Assistant; Admitting Provider Nurse Practitioner Acute Care; Emergency Provider Emergency Medicine; PCP Internal Medicine; Visit Provider Physician Assistant Medical
DX: J84.10 Pulmonary fibrosis, unspecified (principal); J96.21 Acute and chronic respiratory failure with hypoxia; Z99.81 Dependence on supplemental oxygen; U09.9 Post COVID-19 condition, unspecified; K50.90 Crohn's disease, unspecified, without complications; G47.00 Insomnia, unspecified; D50.9 Iron deficiency anemia, unspecified; K21.9 Gastro-esophageal reflux disease without esophagitis; Z20.822 Contact with and (suspected) exposure to COVID-19; Z79.899 Other long term (current) drug therapy
CPT/HCPCS: 36415; 71046; 80053; 82164; 83605; 85025; 85027; 86038; 86235; 87040; 87502; 87633; 87635; 93005; 99285; J1271; J1650; J2543; J2919; J7120

== ENCOUNTER → 2025-04-17 13:20 | Outpatient (BNV) | payer OTHER, SELFPAY | PROVIDERS: Admitting Provider Nurse Practitioner Acute Care; Emergency Provider Emergency Medicine; PCP Internal Medicine; Visit Provider Internal Medicine Cardiovascular Disease | DX: R94.31 Abnormal electrocardiogram [ECG] [EKG] (principal); R06.02 Shortness of breath | CPT/HCPCS: 93010 ==

== ENCOUNTER → 2025-04-17 13:21 | Outpatient (BNV) | payer OTHER, SELFPAY | PROVIDERS: Emergency Provider Emergency Medicine; PCP Internal Medicine; Visit Provider Radiology Diagnostic Radiology | DX: J98.4 Other disorders of lung (principal) | CPT/HCPCS: 71046 ==

== ENCOUNTER → 2025-04-17 17:06 | Outpatient (BNV) | payer OTHER, SELFPAY | PROVIDERS: Admitting Provider Nurse Practitioner Acute Care; Emergency Provider Emergency Medicine; PCP Internal Medicine; Visit Provider Hospitalist | DX: J18.9 Pneumonia, unspecified organism (principal); J96.21 Acute and chronic respiratory failure with hypoxia; J84.9 Interstitial pulmonary disease, unspecified; Z99.81 Dependence on supplemental oxygen | CPT/HCPCS: 99233 ==

== ENCOUNTER → 2025-04-17 17:06 | Outpatient (BNV) | payer OTHER, SELFPAY | PROVIDERS: Admitting Provider Nurse Practitioner Acute Care; Emergency Provider Emergency Medicine; PCP Internal Medicine; Visit Provider Nurse Practitioner Acute Care | DX: J84.9 Interstitial pulmonary disease, unspecified (principal) | CPT/HCPCS: 99223; 99232 ==

== ENCOUNTER 2025-04-20 10:15 | Outpatient (REF) | payer OTHER, SELFPAY ==
[2025-04-20 10:36] LABS: MANUAL DIFF FLAG NO
[2025-04-20 10:52] LABS: Hematocrit 38.3 % (37.0-47.0); Hemoglobin 11.8 g/dl (12.0-16.0); Imm Gran Abs Auto 0.05 X10*3/uL (0.00-0.03); Imm Gran Pct Auto 0.7 % (0.0-0.4); Lymphocytes Absolute Auto 1.7 X10*3/uL (1.2-4.9); Mean Corpuscular HGB Conc 30.8 g/dl (31.0-35.0); Mean Corpuscular Hemoglobin 28.0 pg (27.0-33.0); Mean Corpuscular Volume 91.0 fL (80.0-98.0); NRBC Abs Auto 0.000 X10*3/uL (0.0-0.012); NRBC Pct Auto 0.0 /100WBC (0.0-0.2); Platelet Count 340 X10*3/uL (160-400); Red Blood Count 4.21 X10*6/uL (4.20-5.50); White Blood Count 7.5 X10*3/uL (4.8-10.8)
[2025-04-25 19:43] LABS: Treponema pallidum Ab FTA ABS Nonreactive (Nonreactive)
[2025-04-29 14:12] LABS: Anti Nuclear Antibody Screen NEGATIVE (NEGATIVE)
== END 2025-04-20 10:16 | disposition home or self-care (01) ==
LOC: HO.LAB 10:15
PROVIDERS: PCP Internal Medicine; Visit Provider Ophthalmology
DX: H20.012 Primary iridocyclitis, left eye (principal)
CPT/HCPCS: 36415; 82164; 85025; 85652; 86038; 86140; 86431; 86780

== ENCOUNTER 2025-04-23 12:24 | Outpatient (AMB) | payer OTHER, SELFPAY ==
[2025-04-23 12:34] VITALS: BP 132/80; PULSE 105; TEMP 36.5; O2SAT 95; BMI 27.2
--- NOTE | 2025-04-23 12:34 | A.OFFPC_ITS ---
Vital Signs 04/23/25 12:34 Height 5 ft 1 in Weight 143 lb 11.862 oz BMI 27.2 BP 132/80 Blood Pressure Location Lt brachial Position Sitting Pulse 105 H Pulse Source Pulse Oximeter Temp 97.7 F Temp Source Temporal Artery Scan Pulse Oximetry (%) 95 Oxygen Delivery Method Nasal Cannula Oxygen Flow Rate 3 Intake Visit Reasons: ILD, Depression Railroad Dining Car Stewardess Required: Yes Railroad Dining Car Stewardess Language: Yoruba Accompanied by: Mother Allergies No Known Allergies (No Known Allergies*) Allergy (Verified 04/23/25 12:38) Tobacco use date assessed: 04/23/25 Dental Screening Dental Screen Date: 04/23/25 Did you have a dental visit in the last 12 months?: Yes Did you have a dental problem in the last 6 months where you did not have access to dental care?: No Was dental information given to patient?: Patient has dentist HPI ILD, Depression HPI Details interpret jessica [id number] [facility] Medical History ILD (interstitial lung disease) Supplemental oxygen dependent Pneumomediastinum Breast cancer screening by mammogram Overweight (BMI 25.0-29.9) Abnormal CT scan, chest Hemorrhoids with complication Colon cancer screening Generalized abdominal pain Visual impairment Duodenal ulcer GERD (gastroesophageal reflux disease) Obesity (BMI 30-39.9) Menometrorrhagia Seizure in childhood Sclerosing mesenteritis GERD without esophagitis Surgical History History of esophagogastroduodenoscopy (EGD) Hx of colonoscopy Hx of cholecystectomy (~2005) Hx of hysterectomy Hx of section Family History Father Myocardial infarct CVA (cerebral vascular accident) Mother No problems noted. Daughter No problems noted. Son No problems noted. Brother Substance abuse Social History Household Members: Children Housing: House Do you presently have visiting nurse or other home services: No Alcohol intake: never Patient Tobacco Use Status: Never used Tobacco Tobacco use type: Cigarette e-Cigarette/Vaping Use: Never Used Second Hand Smoke Exposure: No service: No Current occupational status: employed and unemployed Current occupation: [employer] Cognitive needs: No Hearing needs: No Vision needs: No Questionnaire PHQ-9 Over the last 2 weeks, how often have you been bothered by any of the following problems? 1. Little interest or pleasure in doing things: nearly every day 2. Feeling down, depressed, or hopeless: nearly every day 3. Trouble falling or staying asleep, or sleeping too much: more than half the days 4. Feeling tired or having little energy: nearly every day 5. Poor appetite or overeating: not at all 6. Feeling bad about yourself - or that you are a failure or have let yourself or your family down: more than half the days 7. Trouble concentrating on things, such as reading the newspaper or watching television: not at all 8. Moving or speaking so slowly that other people could have noticed. Or the opposite - being so fidgety or restless that you have been moving around a lot more than usual: not at all 9. Thoughts that you would be better off or of hurting yourself in some way: not at all Total score: 13 Depression Screening Interpretation: Positive Depression Screening Done: Yes Source: Developed by Drs. Jerod Grover, Heather Bennett, Georgi Contreras and colleagues, with an educational cristal from [employer]. Thrive Questionnaire Date Thrive assessed: 09/06/24 I am a: Patient What is your living situation today?: I have a steady place to live Within the past 12 months, did the food you bought not last and you didn't have the money to get more?: Sometimes True Within the past 12 months, did you worry whether your food would run out before you got money to buy more?: Sometimes True Do you have trouble paying for medicines?: Yes Do you have trouble getting transportation to medical appointments?: No Do you have trouble paying your heating and electricity bill?: Yes Do you have trouble taking care of your child, family member or friend?: No Do you have trouble with day-to-day activities such as bathing, preparing meals, shopping, managing finances, etc.?: Yes Are you currently unemployed and looking for a job?: Yes Are you interested in more education?: Yes Currently or been in a relationship where the following occur: No concerns reported THRIVE Score: 3 AUDIT C Alcohol Use Questionnaire (AUDIT-C) 1. How often do you have a drink containing alcohol?: Never 3. How often do you have six or more drinks on one occasion?: Never Total Score: 0 YSABEL-7 AMB Questionnaire YSABEL-7 Date YSABEL - 7 assessed: 12/18/24 Feeling nervous, anxious, or on edge: 1 = Several days Not being able to stop or control worryin = More than half the days Worrying too much about different things: 3 = Nearly every day Trouble relaxin = Nearly every day Being so restless that it is hard to sit still: 2 = More than half the days Becoming easily annoyed or irritable: 2 = More than half the days Feeling afraid as if something awful might happen: 1 = Several days Total YSABEL-7 score (0-4 normal; 5-9 mild; 10-14 moderate; 15-21 severe): 14 Source: Developed by Drs. Jerod Grover, Heather Bennett, Georgi Contreras and colleagues, with an educational cristal from [employer]. Physical exam (Primary Care) Vital Signs: Last Vital Signs Temp 97.7 F 04/23/25 12:34 Pulse 105 H 04/23/25 12:34 BP 132/80 04/23/25 12:34 Pulse Ox 95 04/23/25 12:34 Oxygen Delivery Method Nasal Cannula 04/23/25 12:34 Oxygen Flow Rate 3 04/23/25 12:34 BMI result Body Mass Index 27.2 Tobacco/Smoking Status: Tobacco use Status Tobacco use date assessed 04/23/25 04/23/25 12:41 Patient Tobacco Use Status Never used Tobacco 04/23/25 12:41 Tobacco use type Cigarette 04/23/25 12:41 e-Cigarette/Vaping Use Never Used 04/23/25 12:41 PHQ-9: PHQ-9 Score PHQ-9: Total score 13 04/23/25 13:04 Depression Screening Interpretation: Positive Thrive Assessment: Date of Thrive Assessment Date Thrive assessed 09/06/24 04/23/25 12:41 Currently or been in a relationship where the following occur: No concerns reported Const General: alert; No acute distress Eyes Conjunctivae: conjunctivae normal Resp Auscultation: clear to auscultation bilaterally Cardio Rate: regular rate Rhythm: regular rhythm GI Inspection: Yes normal to inspection Extrem General: Yes normal to inspection and No edema Coding Level of Care Code Est Pt Level 4 (20116) Complex EM visit Add On G2211 Diagnoses ILD (interstitial lung disease) J84.9 Osteoporosis M81.0 Gastroesophageal reflux disease without esophagitis K21.9 Esophagitis presence: without esophagitis Crohn's disease of colon with complication K50.119 Digestive disease complication type: unspecified complication Vertebral compression fracture M48.50XA Assessment & Plan Assessment & Plan (1) ILD (interstitial lung disease): Code(s): J84.9 - Interstitial pulmonary disease, unspecified Category: Medical Plan: Patient continues to follow-up Pulmonary and was advised referral to [place]. On steroids (2) Osteoporosis: Code(s): M81.0 - Age-related osteoporosis without current pathological fracture Category: Medical Plan: Patient is being seen by EndocrinologyChao and will be receiving the injections (3) GERD (gastroesophageal reflux disease): Code(s): K21.9 - Gastro-esophageal reflux disease without esophagitis Category: Medical Qualifiers: Esophagitis presence: without esophagitis Qualified Code(s): K21.9 - Gastro-esophageal reflux disease without esophagitis Plan: Avoid the foods that causes that usually spicy foods, tomato products, juices, coffee, soda and foods that your sensitive to. After eating do not lie down, allow 3-4 hours before in lie down. And keep the head of bed above 30 degrees to avoid the acid from going up. (4) Crohn's disease of colon: Code(s): K50.10 - Crohn's disease of large intestine without complications Category: Medical Qualifiers: Digestive disease complication type: unspecified complication Qualified Code(s): K50.119 - Crohn's disease of large intestine with unspecified complications Plan: Continue to follow-up with Gastroenterology (5) Vertebral compression fracture: Code(s): M48.50XA - Collapsed vertebra, not elsewhere classified, site unspecified, initial encounter for fracture Category: Medical Plan: Patient does have osteoporosis Plan History of Present Illness The patient is a 49-year-old overweight female presenting for a follow-up visit for management of multiple chronic conditions, last seen in November 2024. The patient has experienced an 18-pound weight gain since the last visit. Her past medical history is significant for GERD, generalized anxiety disorder, IgA gammopathy, Crohn's disease, vertebral compression fractures, interstitial lung disease (ILD), osteoporosis, history of esophageal candidiasis, and depression. The patient was recently hospitalized in March 2023 for pneumonia, with a diagnosis of acute hypoxic respiratory failure secondary to an [id number] exacerbation of her interstitial lung disease. During her hospitalization, she was treated with Zosyn, prednisone, and Solu-Medrol, and it was recommended that she receive an outpatient referral to a specialist in [place]. She follows with pulmonology, last seen on April 04, and uses supplemental oxygen. The patient has been seen by cardiology for palpitations and was diagnosed with sinus tachycardia. A trial of ivabradine was not tolerated. For her osteoporosis, she follows with endocrinology and was advised to start Tymlos, as Forteo was not approved by her insurance. She is also taking vitamin D. The patient was seen by gastroenterology in January for chronic constipation, and her medication for reflux was changed from omeprazole to famotidine. Blood work from April 20 showed mild anemia (hemoglobin 11.8, hematocrit 38.3), an elevated blood sugar of 770, and elevated liver function tests, with normal electrolytes and renal function. More recent blood work showed a good blood count, but her sedimentation rate remains very high. Regarding health maintenance, the patient's mammogram is up to date, and a colonoscopy was done in 2022. She has also reported new onset of blurry vision, which may be related to cataract formation as a side effect of long-term steroid use. Health Maintenance - Patient has had a weight gain of 18 pounds since her last visit. - Mammogram: Up to date. - Colonoscopy: Last performed in 2022. Social History - The patient required a red cap for the visit. Review of Systems - Respiratory: Reports cough. - Cardiovascular: Reports palpitations. - Gastrointestinal: Reports chronic constipation. - Eyes: Reports blurry vision. - Constitutional: Reports weight gain. Physical Exam - Constitutional: Overweight female. - Vitals: Weight increased by 18 pounds since last visit. Results - Labs (April 20): Mild anemia with Hgb 11.8 and Hct 38.3. - Labs (April 20): Electrolytes and renal function were normal. - Labs (April 20): Blood sugar 770. - Labs (April 20): Elevated liver function tests. - Labs (Recent): Blood count was good. - Labs (Recent): Sedimentation rate is very high. - Procedures: Colonoscopy performed in 2022. - Imaging: Mammogram is up to date. Plan Patient was informed and verbally consented to the use of an ambient scribe for clinic note documentation during this visit. 1. Interstitial Lung Disease The patient was recently hospitalized for an ywztd-ib-[id number] exacerbation of her ILD, presenting as acute hypoxic respiratory failure. An urgent referral will be placed for a pulmonary consultation in [place], as was recommended during her hospital stay. The patient is to continue her course of steroids, with an ongoing weekly taper. 2. Osteoporosis The patient follows with endocrinology for osteoporosis. Forteo was not approved by insurance, but Tymlos is an option. The patient has an upcoming appointment with endocrinology to be trained on how to self-administer the injections. 3. Gastroesophageal Reflux Disease The patient will continue to follow up with gastroenterology for management. 4. Vision Changes The patient reports blurry vision, which was explained to be a potential side effect of long-term steroid use, such as the formation of cataracts. 5. Follow-Up The patient was advised to contact the office if she does not hear from the auditing specialist in [place] within a couple of weeks to ensure the referral is processed. The patient will return for a follow-up as needed. Discussion Notes I reviewed the patient's recent hospitalization for pneumonia, which was a flare-up of her chronic lung problem. I informed the patient that I put in an urgent referral to a auditing specialist in [place], as was recommended in the hospital, and she should expect a call from them. I advised her that if she does not hear from the specialist's office in a couple of weeks, she should let my office know so we can follow up. We discussed her steroid medication, and I advised her to continue tapering the dose as instructed. I also confirmed that while Forteo for her osteoporosis was not approved, she is set to start Tymlos and has an appointment for injection training. When she mentioned blurry vision, I explained that steroids can unfortunately cause cataracts as a side effect. I reviewed her recent blood work, noting that while her blood count is good, her inflammatory markers are still very high, which is consistent with the ongoing lung inflammation. Patient Instructions - Continue taking your steroid medication and continue to lower the dose each week as you were told. - We have sent an urgent request for you to see a lung specialist in [place]. - The specialist's office should call you to make an appointment. - If you do not get a call from them in a couple of weeks, please call our office. - Go to your upcoming appointment to learn how to inject your new bone medication, Tymlos. - You do not need any medication refills at this time. Orders: Referrals Pulmonology Referral J84.9 - Interstitial pulmonary disease, unspecified, K50.119 - Crohn's disease of large intestine with unspecified complications
== END 2025-04-23 13:17 | disposition home or self-care (01) ==
LOC: HO.HMCH 12:25
PROVIDERS: PCP Internal Medicine; Visit Provider Internal Medicine
DX: J84.9 Interstitial pulmonary disease, unspecified (principal); K50.119 Crohn's disease of large intestine with unspecified complications; M48.50XA Collapsed vertebra, not elsewhere classified, site unspecified, initial encounter for fracture; M81.0 Age-related osteoporosis without current pathological fracture; K21.9 Gastro-esophageal reflux disease without esophagitis

== ENCOUNTER → 2025-04-23 12:24 | Outpatient (BNVA) | payer OTHER, SELFPAY | PROVIDERS: PCP Internal Medicine; Visit Provider Internal Medicine | DX: M81.0 Age-related osteoporosis without current pathological fracture (principal); J84.9 Interstitial pulmonary disease, unspecified; K21.9 Gastro-esophageal reflux disease without esophagitis; K50.119 Crohn's disease of large intestine with unspecified complications; M48.50XA Collapsed vertebra, not elsewhere classified, site unspecified, initial encounter for fracture; H53.8 Other visual disturbances | CPT/HCPCS: 99212 ==

== ENCOUNTER 2025-04-25 10:39 | Outpatient (REF) | payer OTHER, SELFPAY ==
[2025-04-25 14:08] LABS: Creatinine, mg/dL 122.55
[2025-04-25 14:18] LABS: Total Volume 24 Hour Urine 750 mL
== END 2025-04-25 10:40 | disposition home or self-care (01) ==
LOC: HO.LAB 10:39
PROVIDERS: PCP Internal Medicine; Visit Provider Internal Medicine Endocrinology, Diabetes & Metabolism
DX: M81.0 Age-related osteoporosis without current pathological fracture (principal)
CPT/HCPCS: 36415; 82306; 82340; 82570

== ENCOUNTER 2025-04-30 13:21 | Outpatient (AMB) | payer OTHER, SELFPAY ==
--- NOTE | 2025-04-30 13:38 | MHC.OFFVIS ---
Intake Visit Reasons: f/u osteoporosis Intake Note: Patient present today for Osteoporosis follow up. Special Procedure Tech Required: Yes Special Procedure Tech Language: Talend Etl Developer Services: Special Procedure Tech Present Special Procedure Tech Name: [facility] [place] Saeid Guthrie Information Interpreted: non-clinical & clinical Accompanied by: Mother Allergies No Known Allergies (No Known Allergies*) Allergy (Verified 04/30/25 13:39) Medication List - Last Reconciled 04/30/25 by Jerod Urrutia MD back brace As directed cefpodoxime 200 mg PO BID 5 days cholecalciferol (vitamin D3) 250 mcg PO DAILY compressor, for nebulizer As directed doxycycline monohydrate 100 mg PO BID 5 days famotidine 20 mg PO BID PRN 90 days ferrous sulfate 325 mg PO DAILY 90 days ivabradine 5 mg PO BID metronidazole 0.75% 1 appl topical BEDTIME PRN nebulizers As directed Oxygen Home Use As directed pen needle, diabetic (Comfort EZ Pen [place]) As directed injects once a day prednisolone acetate 1% 1 drp ophthalmic-Left QID prednisone See Taper mg PO DIRECTED prednisone 7.5 mg (3 x 2.5 mg) PO DAILY 30 days Held on 04/19/25. Instructions: Hold until you complete prednisone taper teriparatide (Forteo) mcg subcut trazodone 50 mg PO BEDTIME PRN HPI Comments Details: 49 YO Female with PMHx interstitial lng dx /steroid dependency is seen in consultation at the request of PCP for Osteoporosis. The patient is a 49-year-old female presenting with osteoporosis and compression fractures in the spine. The osteoporosis was identified more than two months ago, and the fractures were attributed to coughing due to chronic steroid use for lung disease. The patient has not previously seen a specialist for osteoporosis and has not received treatment for it before this visit. The patient is on chronic steroid therapy for lung disease, which has contributed to the development of osteoporosis. She has been advised to take calcium and vitamin D supplements, with a recent increase in vitamin D dosage to 5000 IU due to low blood levels. The patient denies any history of kidney stones and reports no family history of osteoporosis or hip fractures. First diagnosed in 2 mos ago .Not seen specialist before Never Received treatment in the past Has history of pathologic fracture in thoraic spine from coughing no ONJ. Has several servings of dietary calcium per day in the form of cheese, milk, cereal . Takes Calcium supplement 600 mg daily . Takes 800 IU of Vitamin D daily and 5000 IU daily since 3 wks a go . Takes PPI,- anticoagulant, -antiepileptic but takes glucocorticoid medication. Not Does weight bearing exercise . The patient is considering engaging in weight-bearing exercises but is awaiting approval due to concerns about fractures. 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 Menopause hysterecomy 3 yrs ag0 Denies history of Kidney stones: Denies family history of Osteoporosis or hip fracture. UTD on dental cleanings and sees dentist every 6 months. has planned upcoming dental work root canal no extractions. No tobacco use or heavy ETOH use DXA dated 12/06/24 : EXAMINATION: DXA BONE DENSITY AXIAL HISTORY: M48.50XA - Collapsed vertebra, not elsewhere classified, site unspecified... TECHNIQUE: Split Dual energy absorptiometry (DEXA) of the lumbar spine, total left hip, and femoral neck was performed. COMPARISON: There are no prior studies for comparison. FINDINGS: The bone mineral density of the lumbar spine is 1.016, corresponding to a T-score of -1.4, and a Z-score of -0.8. This is indicative of osteopenia. The bone mineral density of the left total hip is 0.739, corresponding to a T-score of -2.1, and a Z-score of -1.5. This is indicative of osteopenia. The bone mineral density of the left femoral neck is 0.750, corresponding to a T-score of -2.1, and a Z-score of -1.2. This is indicative of osteopenia. FRACTURE RISK: The FRAX index suggests a risk of major osteoporotic fracture of 5.0%, and of hip fracture 0.9%. MM/XR DEXA axial skeleton IMPRESSION: Based on bone mineral density, and according to World Health Organization (WHO) criteria, the diagnosis is consistent with osteopenia. Labs: Secondary workup showed low 25- vitamin-D. Patient did not complete the 24 hour urine for calcium and creatinine. Suffered another thoraic fx . Here today to start teriparatide treatment PFSH Medical History ILD (interstitial lung disease) Supplemental oxygen dependent Pneumomediastinum Breast cancer screening by mammogram Overweight (BMI 25.0-29.9) Abnormal CT scan, chest Hemorrhoids with complication Colon cancer screening Generalized abdominal pain Visual impairment Duodenal ulcer GERD (gastroesophageal reflux disease) Obesity (BMI 30-39.9) Menometrorrhagia Seizure in childhood Sclerosing mesenteritis GERD without esophagitis Surgical History History of esophagogastroduodenoscopy (EGD) Hx of colonoscopy Hx of cholecystectomy (~2005) Hx of hysterectomy Hx of section Family History Father Myocardial infarct CVA (cerebral vascular accident) Mother No problems noted. Daughter No problems noted. Son No problems noted. Brother Substance abuse Social History Household Members: Children Housing: House Do you presently have visiting nurse or other home services: No Alcohol intake: never Patient Tobacco Use Status: Never used Tobacco Tobacco use type: Cigarette e-Cigarette/Vaping Use: Never Used Second Hand Smoke Exposure: No service: No Current occupational status: employed and unemployed Current occupation: [employer] Cognitive needs: No Hearing needs: No Vision needs: No Assessment & Plan Assessment & Plan (1) Osteoporosis: Code(s): M81.0 - Age-related osteoporosis without current pathological fracture Category: Medical Plan: This is a 49-year-old female with a history of chronic steroid dependency and multiple compression fractures of the thoracic spine. Secondary workup was negative with no 24 hour urine for calcium and creatinine is pending Plan is to increase the vitamin D3 210 78162 IU per day +800 IU . We will start anabolic agent indicated for glucocorticoid induced osteoporosis Forteo . She will be taught proper administration of Forteo today by our nurse. She did complain of some abdominal pain today during the visit I told her if it worsens to contact her primary care provider or go to the emergency room Coding Level of Care Code Est Pt Level 3 (57272) Diagnoses Osteoporosis M81.0
== END 2025-04-30 15:08 | disposition home or self-care (01) ==
LOC: HO.ENCR 13:22
PROVIDERS: PCP Internal Medicine; Visit Provider Internal Medicine Endocrinology, Diabetes & Metabolism
DX: M81.0 Age-related osteoporosis without current pathological fracture (principal)
CPT/HCPCS: 99213

== ENCOUNTER → 2025-04-30 13:21 | Outpatient (BNVA) | payer OTHER, SELFPAY | PROVIDERS: PCP Internal Medicine; Visit Provider Internal Medicine Endocrinology, Diabetes & Metabolism | DX: M81.0 Age-related osteoporosis without current pathological fracture (principal) | CPT/HCPCS: 99212 ==

== ENCOUNTER → 2025-05-10 12:00 | Outpatient (AMB) | payer OTHER, SELFPAY ==
--- NOTE | 2025-05-10 12:01 | MHC.OFFVIS ---
Intake Visit Reasons: 3m tele ok per provider Intake Note: Patient follow up for Abdominal pain. 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 Allergies No Known Allergies (No Known Allergies*) Allergy (Verified 05/10/25 12:01) Medication List - Last Reconciled 05/10/25 by Marya Galvan MD back brace As directed cefpodoxime 200 mg PO BID 5 days cholecalciferol (vitamin D3) 250 mcg PO DAILY compressor, for nebulizer As directed doxycycline monohydrate 100 mg PO BID 5 days famotidine 20 mg PO BID PRN 90 days ferrous sulfate 325 mg PO DAILY 90 days ivabradine 5 mg PO BID metronidazole 0.75% 1 appl topical BEDTIME PRN nebulizers As directed Oxygen Home Use As directed pen needle, diabetic (Comfort EZ Pen Bunola) As directed injects once a day prednisolone acetate 1% 1 drp ophthalmic-Left QID prednisone See Taper mg PO DIRECTED prednisone 7.5 mg (3 x 2.5 mg) PO DAILY 30 days Held on 04/19/25. Instructions: Hold until you complete prednisone taper teriparatide (Forteo) mcg subcut trazodone 50 mg PO BEDTIME PRN HPI HPI 3m tele ok per provider: Details: GI clinic visit for this 49-year-old Tanzanian-speaking female for follow-up of abdominal pain and diarrhea. CHRONIC ILLNESSES:?GERD, moshe-metrorrhagia TODAY'S VISIT Telephone [employer], [place] # [id number] Pt reports esophagus discomfort with burning sensation Taking Famotidine twice a day without a change in symptoms Denies constipation at present Intermittent burning sensation in the esophagus and lasts 2-3 days Usually associated with certain foods - carbonated malt beverage Constipation has improved - has a BM 2-3 times a day and denies abdominal pain. Stopped taking Omeprazole since she was diagnosed with osteoporosis Cream for the hemorrhoids she needs a new refill because she ran out. She said when she was given the steroid she states she has a fungus type thing on her tongue and in her mouth under the lip. Hospitalized in 08/2024 with breathing problems - discharged on Home oxygen 2-3 L/M by nasal cannula Constipation is a lot better - not having abd pain Has a BM daily PAST VISIT: I am getting better Leavng for [place] tomorrow for 2 weeks since Dad is ill with throat and cardiac problems Pt complains of worsening constipation - has a BM 2-3 times a day with passage of hard stools - like balls Denies abdominal pain. She was taking a powder (Ndiaye) which was working in the past and is no longer working. Complains of fatigue, feeling cold and excessive sleepiness CC: Pt reports that they have remained stable since their last visit, however; they have not seen any significant improvements in their sx. Pt is still reporting chronic constipation concerns and would like to discuss this today. Has a cold. Lab results reviewed I am feeling better Abd pain and constipation has improved. Has a BM daily Pt noted to have tachycardia - denies feeling dizzy or lightheaded States has not been drinking fluids - advised to drink 5-6 glasses of sports drink and water daily EGD and colon results were reviewed with the patient Constipation is better - able to have a BM every 2 days Taking Ndiaye daily which is helping with constipation Doing OK - still has constipation and has a BM every 3 days Abd pain is controlled and continues to have rectal bleeding every time she has a BM Pt complains of abdominal pain started last wed and wednesday Pain stopped on Wednesday BM was very hard and pain improved when she started having diarrhea Recurrent pain and Wed and started having diarrhea. hemorrhoids start popping out when she strains to have a BM. Also notes intermittent bleeding. Lab tests reviewed - IBD serologies positive for Crohn's disease and fecal calprotectin was > 500 (pt had Salmonella infection) Appetite is low - hardly eating anything. Did not have labs done since she has been very depressed and not leaving her house. Has been feeling very hot. Abdominal pain and constipation are better. Rectal bleeding is better. Still has some rectal bleeding when she goes to the bathroom - when she has hard stools. Did not get topical treatment for hemorrhoids - pharmacy told her it needed a PA. Has been using OTC hemorrhoidal creams and they have not been helpful Pt advised to start iron pills for anemia and have labs checked in 4 weeks. Labs show chronic anemia - of note pt is status post hysterectomy 3-4 yrs ago. Patient cc: abdominal bloating, constipation and acid reflex on and off is much better with medication. Patient said the pharmacy never gave her the Hemorrhoids ointment. When she does have a BM she does still see some blood as well. She states that she took a picture with the blood in the toilet. ?Unable to have a BM for the past 3 days - she was able to go today Taking a fibre pill and does not think its helping a lot. Using hemorrhoid cream one to two times daily. Taking Miralax once a day. Constipation has been better since her last visit to the ED. Abdominal pain is better and denies diarrhea. Has eliminated certain foods due to the pain. No problems with hemorrhoids since her last ER visit - using HC with Lidocaine cream prn. ? ?I had not had any abdominal pain for 2 weeks until yesterday 11:40 in the am. ? Pain came on suddenly. ? She was at [facility] and did not want to use the rest room. ? Went home and had an accident and pain gradually subsided around 1:30 pm. ? Did not eat any thing in the morning. ? Wt fluctuates - looses 3-5 lbs and then regains it LABS IN [facility]:?07/21/19 Normal CBC with mild anemia and mildly elevated transaminases. ? 12/14 celiac serologies were negative. ?IMAGING STUDIES 07/24/[address] scan showed: ? 1. There is a continued stable appearance of a of liv mesentery, of ? with nonpathologically enlarged mesenteric lymph nodes. Please note ? differential considerations on prior report. 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 ? 2. No bowel obstruction, free intracranial air abscess is seen. No ? focal bowel wall thickening. No appendicitis or diverticulitis is seen. ? 3. The gallbladder is surgically absent. ? 4. There is diminished, minimal nonspecific free fluid within the right hemipelvis. ? 5. There is mild degenerative disc disease redemonstrated at L4-L5. ?04/20/[address] scan showed: ? 1. Subtle fat stranding of the central mesentery with numerous nonpathologically enlarged lymph node is seen, a liv mesentery appearance. This has a broad differential which includes mesenteric adenitis. Enteritis is a further differential possibility, although no focal bowel wall thickening is presently noted on this examination ? performed without the benefit of oral contrast. It has been described with lymphoma although typically there is a history of lymphoma or evidence of lymphadenopathy elsewhere, not seen on this patient. In ? the absence of symptoms, it is of uncertain etiology or clinical significance. If there is continued clinical concern, a follow-up CT scan could be obtained in 3-6 months. ? 2. No bowel obstruction, free intraperitoneal air or abscess is seen. This no appendicitis or diverticulitis. ? 3. The gallbladder is surgically absent. ? 4. There is a small amount of free fluid within the dependent pelvis. A small right ovarian cyst is suspected. These findings could be more fully evaluated with dedicated pelvic ultrasound, if clinically indicated. ? 5. There is mild degenerative disc disease at L4-L5. ?09/2018 UGI showed: ? IMPRESSION: ? Prominent gastroesophageal reflux with slow clearing to the level of ? the thoracic inlet. Findings consistent with antral gastritis and duodenitis. Question duodenal bulb ulcer. ?ENDOSCOPIC STUDIES: 05/2023 EGD AND COLON SHOWED: Endoscopy Findings: STOMACH: Moderate diffuse gastritis DUODENUM: Normal - biopsied to check for celiac sprue Colonoscopy Findings: One small polyp removed Moderate to severe diverticulosis seen in the left colon with edematous and erythematous folds Moderate hemorrhoids on retroflexed exam. Plan: Repeat Colonoscopy interval based on path results - in 1-2 years if polyps are adenomatous and due to fair prep in the left colon. Above findings were reviewed with the patient and Gastritis, colon polyps and diverticulosis handouts were given in the discharge area BIOPSIES SHOWED: A. Small bowel, biopsy: Duodenal/small bowel mucosa with preserved villi and no specific change. B. Gastric antrum, biopsy: Chronic gastritis with minimal activity and foveolar hyperplasia; negative for H pylori, granulomas, intestinal metaplasia and dysplasia. C. Gastric body, biopsy: Chronic gastritis with focal gland atrophy; negative for H pylori, granulomas, intestinal metaplasia and dysplasia. D. Terminal ileum, biopsy: Ileal mucosa with no specific change. E. Colon, cecal polyp: Colonic mucosa with focal active colitis; negative for regenerative changes and granulomas (see comment). F. Colon, left, biopsy: Colonic mucosa with mild nonspecific increase in chronic inflammation without activity or regenerative changes; negative for granulomas and dysplasia. G. Colon, left, biopsy: Colonic mucosa with lymphoid aggregates and no specific change; no regenerative changes, granulomas or dysplasia. H. Colon, sigmoid, biopsy: Colonic mucosa with lymphoid aggregates and no specific change; no regenerative changes, granulomas or dysplasia. I. Colon, rectum, biopsy: Colonic mucosa with mild nonspecific increase in chronic inflammation without activity or significant regenerative changes; negative for granulomas and dysplasia. Comment: (E): No adenomatous dysplasia seen on initial levels; additional deeper levels pending; Many of the biopsies show chronic inflammation that may be related to the patient's history of Crohn's disease (? treated); clinical correlation is necessary 11/2018 EGD SHOWED:? ESOPHAGUS: Mild esophagael motility disorder? STOMACH: Hemorrhagic gastritis with prominent gastric folds ? Plan: ? Continue present medications (Omeprazole at 20 mg PO once daily) ? Patient has an appointment on 01/13/19 in the GI Clinic with Marya Galvan M.D ? BIOPSIES SHOWED: ? A. Small bowel, biopsy: Small bowel mucosa with no significant histopathology; no ? villous abnormality identified; no increase in intraepithelial lymphocytes. ? B. Stomach, antrum, biopsy: Moderate chronic, inactive gastritis; Helicobacter pylori organisms seen. ? C. Stomach, folds, biopsy: Moderate chronic, inactive gastritis; no Helicobacter pylori organisms seen. ?04/2019 COLONOSCOPY SHOWED: ? Patchy erythema with a few 2-3 mm aphthoid ulcers in the cecum - random biopsies were obtained from TI, right and left colon. ? Moderate hemorrhoids on retroflexed exam. ? Plan: ? Continue present medications (Omeprazole at 20 mg PO once daily) ? Repeat Colonoscopy interval based on path results in 3-5 years if ? polyps are adenomatous and 10 years if polyps are hyperplastic. ? BIOPSIES SHOWED: ? A. Terminal ileum, biopsies: Terminal ileum mucosa with mildly increased lamina propria chronic inflammation, non-specific; no active inflammation; negative for dysplasia/malignancy. ? B. Colon, right, biopsies: Mild chronic colitis; negative for dysplasia/malignancy. ? C. Colon, left, biopsies: Mild chronic colitis; negative for dysplasia/malignancy PFSH Medical History ILD (interstitial lung disease) Supplemental oxygen dependent Pneumomediastinum Breast cancer screening by mammogram Overweight (BMI 25.0-29.9) Abnormal CT scan, chest Hemorrhoids with complication Colon cancer screening Generalized abdominal pain Visual impairment Duodenal ulcer GERD (gastroesophageal reflux disease) Obesity (BMI 30-39.9) Menometrorrhagia Seizure in childhood Sclerosing mesenteritis GERD without esophagitis Surgical History History of esophagogastroduodenoscopy (EGD) Hx of colonoscopy Hx of cholecystectomy (~2005) Hx of hysterectomy Hx of section Family History Father Myocardial infarct CVA (cerebral vascular accident) Mother No problems noted. Daughter No problems noted. Son No problems noted. Brother Substance abuse Social History Household Members: Children Housing: House Do you presently have visiting nurse or other home services: No Alcohol intake: never Patient Tobacco Use Status: Never used Tobacco Tobacco use type: Cigarette e-Cigarette/Vaping Use: Never Used Second Hand Smoke Exposure: No service: No Current occupational status: employed and unemployed Current occupation: [employer] Cognitive needs: No Hearing needs: No Vision needs: No Review of Systems Const All systems reviewed & are unremarkable except as noted in HPI and below Telehealth Telehealth Telehealth Platform: Telephone Location of provider rendering services: practice address Location of patient: address on file Patient Identification confirmed using: Name, : Yes Telehealth method: voice only Patient verbally consented to treatment: Yes Patient verbally consented to billing insurance company: Yes Patient informed of any privacy concerns related to visit: Yes Minutes spent on Phone/Video with Pt.: 12 Assessment & Plan Assessment & Plan (1) GERD (gastroesophageal reflux disease): Code(s): K21.9 - Gastro-esophageal reflux disease without esophagitis Category: Medical Qualifiers: Esophagitis presence: without esophagitis Qualified Code(s): K21.9 - Gastro-esophageal reflux disease without esophagitis (2) Rectal bleeding: Code(s): K62.5 - Hemorrhage of anus and rectum Category: Medical (3) Chronic constipation: Code(s): K59.09 - Other constipation Category: Medical (4) Abdominal pain: Code(s): R10.9 - Unspecified abdominal pain Category: Medical Plan 49 year old [place]anian-speaking female?with GERD, moshe-metrorrhagia followed in GI clinic for post prandial generalized abdominal pain associated with diarrhea for the past 5 years when she moved from [place].? Labs revealed elevated sed rate of 71, a normal CRP of 0.27. Celiac serologies showed normal TTG IgA, mild increase in antigliadin antibody IgA 27. Iron studies revealed a ferritin of 32. Her symptoms are likely a combination of diarrhea pre-dominent IBS and sclerosing mesenteritis. UGI showed possible ulcer in duodenal bulb. EGD showed Mild esophageal motility disorder, Hemorrhagic gastritis with prominent gastric folds, no ulcer noted in the duodenum. Gastric biopsies were positive for H pylori. Patient was treated with triple therapy for H pylori gastritis(clarithromycin, amoxicillin for 10 days) and advised to resume dicyclomine for IBS. Patient had acute onset of abdominal pain with diarrhea and stool studies are positive for Salmonella infection which resolved without treatment. 05/17 Colonoscopy showed Patchy erythema with a few 2-3 mm aphthoid ulcers. Random biopsies were obtained from TI, right and left colon which showed mild chronic colitis- likely related to Salmonella infection; negative for dysplasia/malignancy. Repeat screening colonoscopy was advised in 5 years for follow-up of colitis (due 04/2025). Abdominal pain improved. Patient complained of constipation with intermittent hemorrhoids.? She was advised to increase water and fluid intake and use senna 2 to 3 times a week p.r.n. Repeat labs to follow up on mild anemia and elevated LFTs in past - repeat LFTs were normal. Pt advised to start iron pills for anemia and have labs checked in 4 weeks. 12/17/22 Pt advised to schedule an EGD and a colonoscopy (recurrent SIOBHAN anemia and FU on colitis seen on past colon). Pt to return to the lab for lab tests ordered by Dr Garcia. 04/09/23 - labs showed resolution of anemia and elevated Ig A of 864 - pt referred to Heme Onc for evaluation 06/16/23 Pt seen by Oncology for IgA gammopathy: This is 47-year-old woman with recently diagnosed Crohn's disease and multitude of gastrointestinal problems was noted to have elevated IgA level along with hypoalbuminemia and elevated total protein. She does not have significant anemia or renal dysfunction. No hypercalcemia. Serum protein electrophoresis was consistent with chronic inflammatory pattern. Serum immunofixation showed elevation all immunoglobulin levels, no monoclonal protein detected. Her ESR is elevated, elevated IgA and hyper paraproteinemia can be seen in inflammatory conditions such as Crohn's disease as well. No further hematological workup is necessary. For her facial rash/?rosacea, she was advised to follow-up with her PCP. 05/2023 EGD and colon was performed and findings as noted above 07/01/23 Pt advised to start mesalamine for Crohn's colitis Labs in 4 weeks 02/03/24 Pt complains of worsening constipation - has a BM 2-3 times a day with passage of hard stools - like balls. Denies abdominal pain. She was taking a powder which was working in the past and is no longer working. Pt advised FU labs and fecal calprotectin. Start Linzess 145 mcg daily 04/20/24 Constipation improved 02/15/25 Intermittent burning sensation in the esophagus and lasts 2-3 days Usually associated with certain foods - carbonated malt beverage Constipation has improved - has a BM 2-3 times a day and denies abdominal pain. Stopped taking Omeprazole since she was diagnosed with osteoporosis Pt advised to take Famotidine prn for HB symptoms 05/10/25 Sucralfate twice daily for heartburn Follow-up telemedicine visit in 3 months Medications: New sucralfate (Carafate) 10 mL PO BID 600 mL 3RF 30 days K21.9 - Gastro-esophageal reflux disease without esophagitis Coding Level of Care Code Tele Est Pt Level 2 (73111) Diagnoses Gastroesophageal reflux disease without esophagitis K21.9 Esophagitis presence: without esophagitis Rectal bleeding K62.5 Chronic constipation K59.09 Abdominal pain R10.9 Time Spent (min) 12
== END ==
LOC: HO.HGI 12:00
PROVIDERS: PCP Internal Medicine; Visit Provider Internal Medicine Gastroenterology
DX: K21.9 Gastro-esophageal reflux disease without esophagitis (principal); K62.5 Hemorrhage of anus and rectum; K59.09 Other constipation; R10.9 Unspecified abdominal pain
CPT/HCPCS: 99212

== ENCOUNTER 2025-05-21 17:52 | Inpatient (IN) | payer OTHER, SELFPAY ==
--- NOTE | ~2025-05-21 | XR_ITS ---
CLINICAL HISTORY: sob 1 view chest x-ray. Comparison: 04/17/2025 Findings: No new consolidation or effusion. Similar-appearing increased markings throughout both lung sanon, suggesting nonspecific fibrosis or interstitial disease. Cardiac and mediastinal contours appear unremarkable. Bones unremarkable. Impression: 1. No definable focal consolidation. Similar-appearing increased markings throughout both lung sanon as described above. This document has been electronically signed by: Guillermo Del Rosario MD on 05/21/2025 18:47:56
--- NOTE | ~2025-05-21 | CT_ITS ---
CLINICAL HISTORY: hypoxic, known interstitial lung disease CT angiography chest with contrast. 3D Postprocessing. Comparison: CT - CT ANGIO CHEST PE PROTOCOL - 07/14/24 17:03 EST Findings: The heart is normal size. RV/LV ratio is normal. Bovine arch. No main or segmental pulmonary emboli identified. Hiatal hernia. The lungs are under expanded with centrilobular patchy ground-glass opacities and interstitial thickening. No honeycombing. No pleural effusions. Prior cholecystectomy. The bones are intact. IMPRESSION: 1. Centrilobular patchy ground-glass opacities and interstitial thickening in under-expanded lungs; pulmonary edema. 2. Bovine aortic arch. 3. Hiatal hernia. 4. No main or segmental pulmonary emboli identified This document has been electronically signed by: Grzegorz Greene MD on 05/21/2025 21:27:17
[2025-05-21 18:01] VITALS: PULSE 139; RESP 24; TEMP -17.7; TEMP 0; O2SAT 74; BMI 24.7
--- NOTE | 2025-05-21 18:05 | PC.RT ---
Pt came in via triage with low SATs. Per triage nurse, pt was on 3L NC and pt own pulse ox read 50's for SAT. On Hospital monitor pt SATs read 64% on 10L oxymask. RT place pt on NRB 15L, SATs increased to 99%. Pt presents w/ cold hands and mottled skin on legs and arms. Pt is cold to the touch. Face appears dusky, no cyanosis noted. Pt not tachyneic. L/S clear bilateral w/ no edema to lower extremities. MD at bedside.
[2025-05-21 18:06] VITALS: PULSE 132; O2SAT 64
[2025-05-21 18:07] VITALS: BP 121/79; PULSE 116; RESP 22; TEMP 37; O2SAT 100
--- NOTE | 2025-05-21 18:09 | ECG_ITS ---
Test Reason : sob Blood Pressure : */* mmHG Vent. Rate : 100 BPM Atrial Rate : 100 BPM P-R Int : 136 ms QRS Dur : 82 ms QT Int : 318 ms P-R-T Axes : 44 -16 17 degrees QTcB Int : 410 ms Normal sinus rhythm Right atrial enlargement Moderate voltage criteria for LVH, may be normal variant ( R in aVL , [place] product ) Possible Anterior infarct (cited on or before 17-Apr-2025) Abnormal ECG When compared with ECG of 17-Apr-2025 14:26, Nonspecific T wave abnormality, worse in Anterolateral leads QT has shortened Referred By: Kate Bates Electronically Signed By: Herman Finley
--- NOTE | 2025-05-21 18:20 | ED.SOB ---
HPI - SOB/Dyspnea General Chief Complaint: Dyspnea Stated Complaint: shortness of breathe Time Seen by Provider: 05/21/25 17:56 Source: patient Mode of arrival: ambulatory Limitations: no limitations History of Present Illness ED Provider: Dr. Kate Bates HPI Narrative: patient comes to the emergency room accompanied by her mother. For the last couple of days, patient states that she has been having oxygen saturation in the low 70s and 60s with ambulation. Patient is known to have interstitial lung disease and is oxygen dependent, 2-3 L. Patient was recently discharged, about a month ago for same issue. Patient denies any recent coughing, fever. Denies any chest pain. patient states that after she started to improve but over last couple of days, her oxygen saturation has been pretty low and today was the worst day. With minimal exertion, her oxygen dropped to the 60s. Related Data Home Medications ?Medication ?Instructions ?Recorded ?Confirmed metronidazole 0.75 % topical cream 1 appl topical BEDTIME PRN redness 05/09/24 05/10/25 prednisolone acetate 1 % eye 1 drp ophthalmic-Left QID 04/17/25 05/10/25 drops,suspension teriparatide 20 mcg/dose (560 mcg subcut 04/23/25 05/10/25 mcg/2.24 mL) subcutaneous pen injector (Forteo) Previous Rx's ?Medication ?Instructions ?Recorded Oxygen Home Use #1 ea 03/08/24 nebulizers #1 ea 05/12/24 compressor, for nebulizer #1 ea 05/15/24 ferrous sulfate 325 mg (65 mg 325 mg PO DAILY 90 days #90 tabs 10/16/24 iron) tablet back brace #1 ea 11/03/24 ivabradine 5 mg tablet 5 mg PO BID #60 tabs 12/18/24 prednisone 2.5 mg tablet 7.5 mg (3 x 2.5 mg) PO DAILY 30 01/08/25 Held on 04/19/25. days #90 tabs Instructions: Hold until you complete prednisone taper famotidine 20 mg tablet 20 mg PO BID PRN GERD 90 days #180 02/15/25 tabs cholecalciferol (vitamin D3) 250 250 mcg PO DAILY #30 tabs 02/21/25 mcg (10,000 unit) tablet trazodone 50 mg tablet 50 mg PO BEDTIME PRN insomnia #90 03/21/25 tabs pen needle, diabetic 32 gauge x #100 ea 04/11/2511/10 (Comfort EZ Pen Merrill) cefpodoxime 200 mg tablet 200 mg PO BID 5 days #10 tabs 04/19/25 doxycycline monohydrate 100 mg 100 mg PO BID 5 days #10 tabs 04/19/25 tablet prednisone 10 mg tablet See Taper PO DIRECTED #70 tabs 04/19/25 sucralfate 100 mg/mL oral 10 ml PO BID 30 days #600 mL 05/10/25 suspension (Carafate) calcium carb 1,200 mg-mag hydrox 10 ml PO BID PRN heartburn 14 days 05/21/25 270 mg-simeth 80 mg/10 mL oral #355 mL susp (Mylanta Coat-Cool) Allergies Allergy/AdvReac Type Severity Reaction Status Date / Time No Known Allergies (No Known Allergy Verified 05/21/25 18:04 Allergies*) Review of Systems Review of Systems: Constitutional : No Weight loss, No Fever, No Chills, No Night Sweats, No Fatigue, No Malaise ENT/Mouth : No Hearing loss, No Ear Pain, No Nasal Congestion, No Sinus Pain, No Hoarseness, No sore throat, No Rhinorrhea, No Swallowing Difficulty Eyes: No Eye Pain, No Swelling, No Redness, No Foreign Body, No Discharge, No Vision Changes Cardiovascular : No Chest Pain, Denies orthopnea or palpitations Respiratory : No Cough, complaining of worsening shortness of breath with minimal exertion. Gastrointestinal : No Nausea, No Vomiting, No Diarrhea, No Constipation, No abdominal Pain, No Hematochezia, No Melena Genitourinary : no irregular bleeding, No Dysuria, No Urinary Frequency, No Hematuria, No Urinary Incontinence, No Urgency, No Flank Pain, No Urinary Flow Changes, No Hesitancy Musculoskeletal : No joint pain, No Myalgias, No Joint Swelling Skin : No Skin Lesions, No rash Neuro : No Weakness, No Numbness, No Paresthesias, No Loss of Consciousness, No Dizziness, No Headache Psych : No Anxiety/Panic, No Depression, No SI/HI/AH/VH, No Social Issues, Heme/Lymph: No Bruising, No Bleeding,No Lymphadenopathy Endocrine : No Polyuria, No Polydipsia, No Temperature Intolerance [facility] Past Medical History Medical History ILD (interstitial lung disease) Supplemental oxygen dependent Pneumomediastinum Breast cancer screening by mammogram Overweight (BMI 25.0-29.9) Abnormal CT scan, chest Hemorrhoids with complication Colon cancer screening Generalized abdominal pain Visual impairment Duodenal ulcer GERD (gastroesophageal reflux disease) Obesity (BMI 30-39.9) Menometrorrhagia Seizure in childhood Sclerosing mesenteritis GERD without esophagitis Surgical History History of esophagogastroduodenoscopy (EGD) Hx of colonoscopy Hx of cholecystectomy (~2005) Hx of hysterectomy Hx of section Family History Family History Father Myocardial infarct CVA (cerebral vascular accident) Mother No problems noted. Daughter No problems noted. Son No problems noted. Brother Substance abuse Social History Social History Household Members: Children Housing: House Do you presently have visiting nurse or other home services: No Alcohol intake: never Patient Tobacco Use Status: Never used Tobacco Tobacco use type: Cigarette e-Cigarette/Vaping Use: Never Used Second Hand Smoke Exposure: No Advance Directives: No Advance Directives Information Provided: No service: No Current occupational status: employed and unemployed Current occupation: [id number] Cognitive needs: No Hearing needs: No Vision needs: No Physical Exam Vital Signs: Vital Signs: Last Vital Signs Temp 98.6 F 05/21/25 18:07 Pulse 82 05/21/25 21:56 Resp 35 H 05/21/25 21:56 BP 117/75 05/21/25 21:56 Pulse Ox 97 05/21/25 21:56 O2 Del Method Oxymask 05/21/25 21:56 O2 Flow Rate 6 05/21/25 21:56 Oxygen Flow Rate 3 05/21/25 18:01 BMI result Body Mass Index 24.7 Course Course Course Narrative: On arrival, patient's oxygen saturation was 64% on 5 L nasal cannula. Patient was put on a non-rebreather. Patient's oxygen saturation improved to 100%. Without any significant treatment. Only rest, oxygen saturation stayed in the 100%. Patient was weaned down to a non-rebreather, 6 L, oxygen saturation 95%. Patient is empirically being treated with IV antibiotics and fluids. At this time, patient's blood pressure is holding in the 120s, tachycardia secondary to the anxiety of the shortness of breath, no fever, sepsis is not suspected Medications Administered Discontinued Medications Generic Name Dose Route Start Last Admin Trade Name Freq PRN Reason Stop Dose Admin Ceftriaxone Sodium 1 gm/ 50 mls @ 100 mls/hr 05/21/25 18:33 05/21/25 19:25 Sodium Chloride IV 05/21/25 19:02 Infused ONCE ONE Infusion Azithromycin 500 mg/ Sodium 250 mls @ 125 mls/hr 05/21/25 18:33 05/21/25 20:53 Chloride IV 05/21/25 20:32 Infused ONCE ONE Infusion Sodium Chloride 1,000 mls @ 999 mls/hr 05/21/25 18:37 05/21/25 19:25 Ns IVCONT 05/21/25 19:37 Infused .Q1H1M ONE Infusion Sodium Chloride 1,000 mls @ 999 mls/hr 05/21/25 19:10 05/21/25 20:53 Ns IVCONT 05/21/25 20:10 Infused .Q1H1M ONE Infusion Medical Decision Making Medical Decision Making [facility] Narrative: my interpretation of labs and chemistry, no significant acute abnormality, no significant abnormality in patient's blood gases, normal lactic acid, normal troponin and pro BNP, serology negative for influenza RSV and COVID CTA negative for pulmonary embolism. However, patient does have pneumonia. Sepsis not suspected as mentioned above, patient already received IV fluids and antibiotics we were able to wean the patient down to 6 L of oxygen, saturating in the mid 90s. Differential Diagnosis Differential Diagnoses: The differential diagnosis associated with the presentation includes ( Pneumonia, pulmonary embolism, CHF, viral illness) Admission/Observation Consideration of admission/observation: Escalation of care including admission/observation considered Consult Healthcare Provider Management of the patient was discussed with: Hospitalist Lab Data [facility] Lab Attestation statement: I reviewed the patient's lab results. 05/21/25 18:12 05/21/25 18:12 Labs: Lab Results 05/21/25 05/21/25 05/21/25 Range/Units 18:12 18:29 21:45 WBC 8.5 (4.8-10.8) X10*3/uL RBC 4.99 (4.20-5.50) X10*6/uL Hgb 14.0 (12.0-16.0) g/dl Hct 44.4 (37.0-47.0) % MCV 89.0 (80.0-98.0) fL MCH 28.1 (27.0-33.0) pg MCHC 31.5 (31.0-35.0) g/dl RDW 13.2 (11.0-16.0) % Plt Count 339 (160-400) X10*3/uL MPV 10.5 (9.4-12.3) fL Immature Gran % (Auto) 0.5 H (0.0-0.4) % Neut % (Auto) 57.3 (45-73) % Lymph % (Auto) 31.4 (20-40) % [place]ett[place] % (Auto) 8.4 (2-11) % Eos % (Auto) 1.9 (0-4) % Baso % (Auto) 0.5 (0-2) % Lymph # (Auto) 2.7 (1.2-4.9) X10*3/uL [place] # (Auto) 0.7 (0.1-1.2) X10*3/uL Eos # (Auto) 0.2 (0.0-0.4) X10*3/uL Baso # (Auto) 0.0 (0.0-0.2) X10*3/uL Abs Immat Gran (auto) 0.04 H (0.00-0.03) X10*3/uL Absolute Neuts (auto) 4.9 (2.0-8.3) x10*3/uL Absolute Nucleated RBC 0.000 (0.0-0.012) X10*3/uL Nucleated RBC % (auto) 0.0 (0.0-0.2) /100WBC VBG pH 7.39 (7.32-7.43) VBG pCO2 46 mmHg VBG pO2 37 mmHg VBG HCO3 28 H (22-26) mmol/L VBG O2 Saturation 53.0 % VBG Base Excess 2.7 mmol/L Sodium 142 (135-145) mmol/L Potassium 3.5 (3.3-5.1) mmol/L Chloride 106 (96-108) mmol/L Carbon Dioxide 26 (22-29) mmol/L Anion Gap 14 (12-20) BUN 17 H (9-16) mg/dL Creatinine 0.67 (0.5-1.4) mg/dL Estim Creat Clear Calc 88.4 Estimated GFR > 60 Random Glucose 105 (60-115) mg/dL Lactic Acid 1.4 (0.5-2.0) mmol/L Calcium 11.4 H D 9.2 D (8.4-10.2) mg/dL Magnesium 1.7 (1.6-2.6) mg/dL Total Bilirubin 0.4 (0.0-1.0) mg/dL Direct Bilirubin 0.2 (0.0-0.5) mg/dL AST 57 H (5-31) U/L ALT 109 H (0-31) U/L Alkaline Phosphatase 171 H (39-117) U/L Troponin I High Sens 8.3 (<3.5-17.0) ng/L NT-Pro-B Natriuret Pep 103.2 (<300) pg/mL Total Protein 9.2 H (6.5-8.0) g/dL Albumin 4.0 (3.5-5.0) g/dL Influenza Type A (PCR) NEGATIVE (Negative) Influenza Type B (PCR) NEGATIVE (Negative) RSV RNA Qual (PCR) NEGATIVE (Negative) SARS-CoV-2 RNA (RT-PCR) NEGATIVE (Negative) Independent Interpretation I performed an independent interpretation of an: Plain X-Ray and CT Scan Radiology Impression Discussion of test interpretation with radiology: I have reviewed the radiologist's reading. Radiologist Impression: The heart is normal size. RV/LV ratio is normal. Bovine arch. No main or segmental pulmonary emboli identified. Hiatal hernia. The lungs are under expanded with centrilobular patchy ground-glass opacities and interstitial thickening. No honeycombing. No pleural effusions. Prior cholecystectomy. The bones are intact. IMPRESSION: 1. Centrilobular patchy ground-glass opacities and interstitial thickening in under-expanded lungs; pulmonary edema. 2. Bovine aortic arch. 3. Hiatal hernia. 4. No main or segmental pulmonary emboli identified Independent Historian Clinical information obtained from an independent historian. History obtained from or confirmed by: EMS Critical Care Time Critical Care Time Critical Care Time: Yes Total Critical Care Time: 60 Attestation: I have personally provided critical care time. Time includes review of lab data, radiology results, discussion with consultants, and monitoring for potential decompensation. Intervention performed as documented. Discharge Plan Discharge Clinical Impression: Pneumonia, Hypercalcemia, Hypoxic respiratory failure Patient Disposition: Admitted As Inpatient Print Language: Citizen Of [place]
[2025-05-21 18:30] LABS: MANUAL DIFF FLAG NO
[2025-05-21 18:33] LABS: VBG HCO3 28 mmol/L (22-26); VBG O2 % Saturation 53.0 %
[2025-05-21 18:40] LABS: Hematocrit 44.4 % (37.0-47.0); Hemoglobin 14.0 g/dl (12.0-16.0); Imm Gran Abs Auto 0.04 X10*3/uL (0.00-0.03); Imm Gran Pct Auto 0.5 % (0.0-0.4); Lymphocytes Absolute Auto 2.7 X10*3/uL (1.2-4.9); Mean Corpuscular HGB Conc 31.5 g/dl (31.0-35.0); Mean Corpuscular Hemoglobin 28.1 pg (27.0-33.0); Mean Corpuscular Volume 89.0 fL (80.0-98.0); NRBC Abs Auto 0.000 X10*3/uL (0.0-0.012); NRBC Pct Auto 0.0 /100WBC (0.0-0.2); Platelet Count 339 X10*3/uL (160-400); Red Blood Count 4.99 X10*6/uL (4.20-5.50); White Blood Count 8.5 X10*3/uL (4.8-10.8)
[2025-05-21 18:46] LABS: Venous Blood Gas Refer to POC result
[2025-05-21 18:51] LABS: Alanine Aminotransferase 109 U/L (0-31); Albumin Level 4.0 g/dL (3.5-5.0); Alkaline Phosphatase 171 U/L (39-117); Anion Gap 14 (12-20); Aspartate Amino Transferase 57 U/L (5-31); Blood Urea Nitrogen 17 mg/dL (9-16); Calcium 11.4 mg/dL (8.4-10.2); Carbon Dioxide 26 mmol/L (22-29); Chloride 106 mmol/L (96-108); Creatinine Clr Calc Pharmacy 88.4; Estimated Glomerular Filt Rate > 60; Magnesium 1.7 mg/dL (1.6-2.6); Potassium 3.5 mmol/L (3.3-5.1); Sodium 142 mmol/L (135-145); Total Protein 9.2 g/dL (6.5-8.0)
[2025-05-21 18:58] LABS: Troponin-I High Sensitivity 8.3 ng/L (<3.5-17.0)
[2025-05-21 19:18] LABS: Resp Syncy Virus RNA Qual PCR NEGATIVE (Negative); SARS COV2 PCR INHOUSE NEGATIVE (Negative)
[2025-05-21 19:25] VITALS: BP 128/75; PULSE 88; RESP 30; O2SAT 96
--- NOTE | 2025-05-21 20:06 | PC.NURSE ---
pt returned from radiology noted to desat to lower 80's on 6L oxymask, pt placed on NRB with improvement to 100%
[2025-05-21 21:56] VITALS: BP 117/75; PULSE 82; RESP 35; O2SAT 97
[2025-05-21 22:04] LABS: Calcium 9.2 mg/dL (8.4-10.2)
[2025-05-21 22:10] LABS: NT Pro B Type Natriuretic Pept 103.2 pg/mL (<300)
--- NOTE | 2025-05-21 23:11 | PM.IMHP ---
History of Present Illness Date of Service: 05/21/25 Chief Complaint: sob, hypoxia 49F PMH chronic hypoxic respiratory failure due to interstitial lung disease on 3 L home O2, Crohn's, rosacea, GERD with esophagitis, osteoporosis presented with shortness of breath. Patient reports symptoms began about 2 days prior to presentation. On minimal exertion noted that pulse ox dropped into the 70s on her baseline 3 L associated with shortness of breath and dry coughing. On day of presentation she dropped into the 60s and had slow recovery so was brought to ED. In ED initially required non-rebreather. CTA showed centrilobular patchy ground-glass opacities and interstitial thickening. Viral swab negative. Review of Systems Review of Systems: Yes all other systems are reviewed and are negative [facility] Medical History Crohn's disease of colon ILD (interstitial lung disease) Supplemental oxygen dependent Pneumomediastinum Breast cancer screening by mammogram Overweight (BMI 25.0-29.9) Abnormal CT scan, chest Hemorrhoids with complication Colon cancer screening Generalized abdominal pain Visual impairment Duodenal ulcer GERD (gastroesophageal reflux disease) Obesity (BMI 30-39.9) Menometrorrhagia Seizure in childhood Sclerosing mesenteritis GERD without esophagitis Family History Father Myocardial infarct CVA (cerebral vascular accident) Mother No problems noted. Daughter No problems noted. Son No problems noted. Brother Substance abuse Surgical History History of esophagogastroduodenoscopy (EGD) Hx of colonoscopy Hx of cholecystectomy (~2005) Hx of hysterectomy Hx of section Social History Household Members: Children Housing: House Do you presently have visiting nurse or other home services: No Alcohol intake: never Patient Tobacco Use Status: Never used Tobacco Tobacco use type: Cigarette e-Cigarette/Vaping Use: Never Used Second Hand Smoke Exposure: No Advance Directives: No Advance Directives Information Provided: No service: No Current occupational status: employed and unemployed Current occupation: [employer] Cognitive needs: No Hearing needs: No Vision needs: No Meds Allergies Allergy/AdvReac Type Severity Reaction Status Date / Time No Known Allergies (No Known Allergy Verified 05/21/25 18:04 Allergies*) Active Medications: Current Medications Acetaminophen (Acetaminophen 325 Mg Tablet) 650 mg PO Q6H PRN PRN Reason: Pain, Mild 1-3,fever,headache Calcium Carbonate (Calcium Carbonate 750 Mg Tab.Chew) 750 mg PO Q4H PRN PRN Reason: Heartburn Enoxaparin Sodium (Enoxaparin Sodium 40 Mg/0.4 Ml Syringe) 40 mg SUBCUT Q24H NIKOLAI Levalbuterol HCl (Levalbuterol Hcl 1.25 Mg/3 Ml Vial.Neb) 1.25 mg INHALE Q4H PRN PRN Reason: sob Magnesium Hydroxide (Milk Of Magnesia 30 Ml Oral.Susp) 30 ml PO DAILY PRN PRN Reason: Constipation Melatonin (Melatonin 3 Mg Tablet) 6 mg PO BEDTIME PRN PRN Reason: Insomnia Methylprednisolone Sodium Succinate (Methylprednisolone Sod Succ 40 Mg/Ml Vial) 40 mg IVPUSH Q12H NIKOLAI Sodium Chloride (0.9 % Sodium Chloride Flush 3 Ml Syringe) 3 ml IVFLUSH QSHIFT [facility] Home Medications ?Medication ?Instructions ?Recorded ?Confirmed ?Last Taken ?Type metronidazole 0.75 % topical cream 1 appl topical BEDTIME PRN redness 05/09/24 05/10/25 09/21/24 History prednisolone acetate 1 % eye 1 drp ophthalmic-Left QID 04/17/25 05/10/25 04/17/25 History drops,suspension teriparatide 20 mcg/dose (560 mcg subcut 04/23/25 05/10/25 Unknown History mcg/2.24 mL) subcutaneous pen injector (Forteo) Physical Exam Vital Signs and Narrative: Vital Signs: Last Vital Signs Temp 98.6 F 05/21/25 18:07 Pulse 82 05/21/25 21:56 Resp 35 H 05/21/25 21:56 BP 117/75 05/21/25 21:56 Pulse Ox 97 05/21/25 21:56 O2 Del Method Oxymask 05/21/25 21:56 O2 Flow Rate 6 05/21/25 21:56 Oxygen Flow Rate 3 05/21/25 18:01 BMI result Body Mass Index 24.7 General: AO X 3, dyspneic, tachypneic Resp: Crackles bilateral, accessory muscles used CVS: S1,S2,RRR GI: soft, non tender, non distended Neuro: motor grossly intact, alert Psych: appropriate affect, appropriate insight Results Labs 05/21/25 18:12 05/21/25 18:12 Labs: Laboratory Results - last 24 hr 05/21/25 05/21/25 05/21/25 18:12 18:29 21:45 MCV 89.0 MCH 28.1 MCHC 31.5 RDW 13.2 Plt Count 339 MPV 10.5 Immature Gran % (Auto) 0.5 H Neut % (Auto) 57.3 Lymph % (Auto) 31.4 [place] % (Auto) 8.4 Eos % (Auto) 1.9 Baso % (Auto) 0.5 Lymph # (Auto) 2.7 [place] # (Auto) 0.7 Eos # (Auto) 0.2 Baso # (Auto) 0.0 Abs Immat Gran (auto) 0.04 H Absolute Neuts (auto) 4.9 Absolute Nucleated RBC 0.000 Nucleated RBC % (auto) 0.0 VBG pH 7.39 VBG pCO2 46 VBG pO2 37 VBG HCO3 28 H VBG O2 Saturation 53.0 VBG Base Excess 2.7 Anion Gap 14 Estim Creat Clear Calc 88.4 Estimated GFR > 60 Random Glucose 105 Lactic Acid 1.4 Calcium 11.4 H D 9.2 D Magnesium 1.7 Total Bilirubin 0.4 Direct Bilirubin 0.2 AST 57 H ALT 109 H Alkaline Phosphatase 171 H Troponin I High Sens 8.3 NT-Pro-B Natriuret Pep 103.2 Total Protein 9.2 H Albumin 4.0 Influenza Type A (PCR) NEGATIVE Influenza Type B (PCR) NEGATIVE RSV RNA Qual (PCR) NEGATIVE SARS-CoV-2 RNA (RT-PCR) NEGATIVE Assessment and Plan (1) Esophagitis: Status: Acute Plan 49F PMH chronic hypoxic respiratory failure due to interstitial lung disease on 3 L home O2, Crohn's, rosacea, GERD with esophagitis, osteoporosis presented with shortness of breath. Acute on chronic hypoxic respiratory failure due to interstitial lung disease with acute decompensation IV steroids, Xopenex Wean O2 as tolerated Rosacea Continue Flagyl Esophagitis PPI, Carafate Crohn's Stable Osteoporosis On daily Forteo at home DVT prophylaxis with Lovenox Full code Given severity of hypoxia and increased oxygen requirements from baseline expected require at least 2 midnights inpatient Quality Stroke Does the patient have a stroke diagnosis?: No VTE Prior VTE?: No VTE Risk Level:: Medical - moderate - high VTE Device Contraindication: Treatment Not Indicated VTE Drug Contraindication: N/A - Med Ordered
--- NOTE | 2025-05-21 23:47 | HO.NURTONUR ---
pt from home with complaint of increased sob for the last few days with low O2 readings at home. pt has hx of pulmonary fibrosis and on 3L NC @baseline. Pt states while at home her pulse ox read lower 50'son 3LNC. Upon arrival to the ED pt was noted to be 64% on 5L NC, pt placed on NRB with improvement to 100%. Pt denies any recent fevers/chills, sick contacts, cp, n/v/d, or any other symptoms of concern. While in the ED sepsis workup done. Pt received IVF NS, IV abx, and IV steroids. Pt weaned down to 6L on oxymask. Noted with any subtle exertion pts O2 sat goes down significantly needing to be placed back on NRB for improvement. Pt caox4, primarily [place] speaking and able to make her needs known. Pt has 20G IV in RAC and has been medicated per aug. pt not complaining of any pain at this time. Pt being admitted for hypoxia. Labs: VBG HCO3- 28 BUN- 17 Calcium- 11.4->9.2 AST- 57 ALT- 109 Alkaline Phosphate- 171 Trop- 8.3 BNP- 103.2 Chest Xray: Impression: 1. No definable focal consolidation. Similar-appearing increased markings throughout both lung sanon as described above. Chest CTA: IMPRESSION: 1. Centrilobular patchy ground-glass opacities and interstitial thickening in under-expanded lungs; pulmonary edema. 2. Bovine aortic arch. 3. Hiatal hernia. 4. No main or segmental pulmonary emboli identified
[2025-05-22] VITALS (12 sets, daily range): BP systolic 124–147; BP diastolic 69–87; PULSE 71–116; RESP 18–30; TEMP 36.2–37.1; O2SAT 94–98; BMI 26.0
[2025-05-22 06:22] LABS: Hematocrit 35.7 % (37.0-47.0); Hemoglobin 11.5 g/dl (12.0-16.0); Mean Corpuscular HGB Conc 32.2 g/dl (31.0-35.0); Mean Corpuscular Hemoglobin 28.6 pg (27.0-33.0); Mean Corpuscular Volume 88.8 fL (80.0-98.0); NRBC Abs Auto 0.000 X10*3/uL (0.0-0.012); NRBC Pct Auto 0.0 /100WBC (0.0-0.2); Platelet Count 272 X10*3/uL (160-400); Red Blood Count 4.02 X10*6/uL (4.20-5.50); White Blood Count 4.6 X10*3/uL (4.8-10.8)
[2025-05-22 06:41] LABS: Alanine Aminotransferase 72 U/L (0-31); Albumin Level 3.0 g/dL (3.5-5.0); Alkaline Phosphatase 136 U/L (39-117); Anion Gap 12 (12-20); Aspartate Amino Transferase 46 U/L (5-31); Blood Urea Nitrogen 14 mg/dL (9-16); Calcium 9.1 mg/dL (8.4-10.2); Carbon Dioxide 21 mmol/L (22-29); Chloride 113 mmol/L (96-108); Creatinine Clr Calc Pharmacy 114.4; Estimated Glomerular Filt Rate > 60; Magnesium 1.7 mg/dL (1.6-2.6); Potassium 4.4 mmol/L (3.3-5.1); Sodium 142 mmol/L (135-145); Total Protein 7.1 g/dL (6.5-8.0)
--- NOTE | 2025-05-22 08:34 | PHA.MEDREC ---
Addendum entered by Bal Garcia [facility] 05/22/25 09:09: MED REC REVIEWED BY [facility] Addendum entered by Jenni Gerber 05/22/25 09:06: When speaking with pt about eye drops, pt states she is only using Prednisolone eye drops in the left eye TID at this time and nothing else. Original Note: Pharmacy Consult ? Medication Reconciliation Pharmacy has completed the medication reconciliation. Spoke with pt, utilizing full time staff interpreter, and she was able to confirm her medications. Pt no longer taking Famotidine or Omeprazole and is now taking Sucralfate 10ml BID for GERD, pt taking Prednisolone eye drops 1 drop in the left eye TID; pt been taking it like that for a bit now , she is taking Prednisone 2.5mg tabs 3 tabs (7.5mg ) once daily; pt was taking a Prednisone 10mg regimen and finished that this past weekend and is now taking the 7.5mg daily until told to stop by and she takes a Forteo 20mcg injection once daily; pt last took that yesterday and can have someone bring that in if needed.
[2025-05-22] MEDS: 0.9 % Sodium Chloride Flush 3 ML SYRINGE IVFLUSH ×3 (09:42→20:19)
[2025-05-22] MEDS: Furosemide 40 MG/4 ML VIAL IVPUSH (10:50)
--- NOTE | 2025-05-22 11:09 | PC.NURSE ---
Patient on continuous spO2 monitoring, medical chief technician informed RN patient was desaturating 83-84% on 6L nasal cannula, HR 121. Upon going in room patient appeared anxious, SOB, increased work of breathing. Patient placed on simple face mask to 9L, encouraged patient to take slow deep breaths, spO2 increased to 97% on 9L simple face mask, HR 111. Provider Shane Marcos informed via [email or web address]. Morphine, IV lasix and blanket inspector ordered. Patient tearful. Project Facilitator Marci used to educate patient on new medications, plan of care and to help ease anxiety. Family member came to bedside.
--- NOTE | 2025-05-22 12:15 | P.PNIM_ITS ---
Subjective Subjective Date of Service: 05/22/25 Interval History: Patient seen examined at bedside this morning, patient was admitted for LD decompensation as well as pulmonary edema. Patient at this time on 6 L of oxygen, short of breath on talking. Review of Systems Review of Systems: Yes all other systems are reviewed and are negative Physical Exam 2 Exam: Exam: General: AxOx3, in acute respiratory distress 6L Head: AT/NC ENT: Moist mucous membranes Neck: supple CVS; RRR, S1 S2 normal Lungs: Bilateral rales Abd: Soft non tender, non distended Ext: No edema and no calf tenderness MSK: moving all 4 limbs Skin: No edema Psych: Cooperative with exam, anxious Neurology: no focal deficit Vital Signs: Vital Signs: Last Vital Signs Temp 97.3 F 05/22/25 09:36 Pulse 109 H 05/22/25 11:53 Resp 20 05/22/25 11:53 BP 127/69 05/22/25 10:29 Pulse Ox 96 05/22/25 11:53 O2 Del Method Simple Mask 05/22/25 11:53 O2 Flow Rate 9 05/22/25 11:53 Oxygen Flow Rate 3 05/21/25 18:01 BMI result Body Mass Index 26.0 Objective Data Active Medications Acetaminophen (Acetaminophen 325 Mg Tablet) 650 mg PO Q6H PRN PRN Reason: Pain, Mild 1-3,fever,headache Calcium Carbonate (Calcium Carbonate 750 Mg Tab.Chew) 750 mg PO Q4H PRN PRN Reason: Heartburn Enoxaparin Sodium (Enoxaparin Sodium 40 Mg/0.4 Ml Syringe) 40 mg SUBCUT Q24H NIKOLAI Last Admin: 05/22/25 09:38 Dose: 40 mg Documented By: BELEN Azithromycin 500 mg/ Sodium (Chloride) 250 mls @ 125 mls/hr IV Q24H [facility] Ceftriaxone Sodium 1 gm/ (Sodium Chloride) 50 mls @ 100 mls/hr IV Q24H [facility] Levalbuterol HCl (Levalbuterol Hcl 1.25 Mg/3 Ml Vial.Neb) 1.25 mg INHALE Q4H PRN PRN Reason: sob Last Admin: 05/22/25 09:56 Dose: 1.25 mg Documented By: ALESSANDRO Magnesium Hydroxide (Milk Of Magnesia 30 Ml Oral.Susp) 30 ml PO DAILY PRN PRN Reason: Constipation Melatonin (Melatonin 3 Mg Tablet) 6 mg PO BEDTIME PRN PRN Reason: Insomnia Methylprednisolone Sodium Succinate (Methylprednisolone Sod Succ 40 Mg/Ml Vial) 40 mg IVPUSH Q8H [facility] Last Admin: 05/22/25 10:27 Dose: 40 mg Documented By: BELEN Metronidazole (Metronidazole 0.75 % Gel 45 Gm Tube) 1 appl TOPICAL BID [facility] Last Admin: 05/22/25 09:44 Dose: Not Given Documented By: BELEN Non-Admin Reason: Patient Refused Comments: patient states she takes only as needed with flare up Non-Formulary Medication (Ivabradine) 5 mg PO BID [facility] Pt Own (Teriparatide [Forteo] 20 Mcg/Dose (560mcg/2.24ml) Pen Injector) 20 mcg SUBCUT DAILY [facility] Omeprazole (Omeprazole 20 Mg Capsule.Dr) 20 mg PO DAILY@0630 [facility] Last Admin: 05/22/25 05:45 Dose: Not Given Documented By: RAMÓN Non-Admin Reason: Patient Refused Sodium Chloride (0.9 % Sodium Chloride Flush 3 Ml Syringe) 3 ml IVFLUSH QSHIFT [facility] Last Admin: 05/22/25 09:42 Dose: 3 ml Documented By: BELEN Sucralfate (Sucralfate Oral Suspension 1 Gm/10 Ml Oral.Susp) 1 gm PO QIDACHS [facility] Last Admin: 05/22/25 09:44 Dose: Not Given Documented By: BELEN Non-Admin Reason: Patient Asleep Sucralfate (Sucralfate Oral Suspension 1 Gm/10 Ml Oral.Susp) 1 gm PO BID [facility] Trazodone HCl (Trazodone Hcl 50 Mg Tablet) 50 mg PO BEDTIME PRN PRN Reason: Insomnia Vitamin D (Cholecalciferol (Vitamin D3) 25 Mcg Tablet) 50 mcg PO DAILY [facility] Labs 05/22/25 05:37 05/22/25 05:37 Labs: Laboratory Results - last 24 hr 05/21/25 05/21/25 05/21/25 18:12 18:29 21:45 MCV 89.0 MCH 28.1 MCHC 31.5 RDW 13.2 Plt Count 339 MPV 10.5 Immature Gran % (Auto) 0.5 H Neut % (Auto) 57.3 Lymph % (Auto) 31.4 [place] % (Auto) 8.4 Eos % (Auto) 1.9 Baso % (Auto) 0.5 Lymph # (Auto) 2.7 [place] # (Auto) 0.7 Eos # (Auto) 0.2 Baso # (Auto) 0.0 Abs Immat Gran (auto) 0.04 H Absolute Neuts (auto) 4.9 Absolute Nucleated RBC 0.000 Nucleated RBC % (auto) 0.0 VBG pH 7.39 VBG pCO2 46 VBG pO2 37 VBG HCO3 28 H VBG O2 Saturation 53.0 VBG Base Excess 2.7 Anion Gap 14 Estim Creat Clear Calc 88.4 Estimated GFR > 60 Random Glucose 105 Lactic Acid 1.4 Calcium 11.4 H D 9.2 D Magnesium 1.7 Total Bilirubin 0.4 Direct Bilirubin 0.2 AST 57 H ALT 109 H Alkaline Phosphatase 171 H Troponin I High Sens 8.3 NT-Pro-B Natriuret Pep 103.2 Total Protein 9.2 H Albumin 4.0 Influenza Type A (PCR) NEGATIVE Influenza Type B (PCR) NEGATIVE RSV RNA Qual (PCR) NEGATIVE SARS-CoV-2 RNA (RT-PCR) NEGATIVE 05/22/25 05:37 MCV 88.8 MCH 28.6 MCHC 32.2 RDW 13.1 Plt Count 272 MPV 10.5 Immature Gran % (Auto) Neut % (Auto) Lymph % (Auto) [place] % (Auto) Eos % (Auto) Baso % (Auto) Lymph # (Auto) [place] # (Auto) Eos # (Auto) Baso # (Auto) Abs Immat Gran (auto) Absolute Neuts (auto) Absolute Nucleated RBC 0.000 Nucleated RBC % (auto) 0.0 VBG pH VBG pCO2 VBG pO2 VBG HCO3 VBG O2 Saturation VBG Base Excess Anion Gap 12 Estim Creat Clear Calc 114.4 Estimated GFR > 60 Random Glucose 141 H Lactic Acid Calcium 9.1 Magnesium 1.7 Total Bilirubin 0.2 Direct Bilirubin < 0.2 AST 46 H ALT 72 H Alkaline Phosphatase 136 H Troponin I High Sens NT-Pro-B Natriuret Pep Total Protein 7.1 Albumin 3.0 L Influenza Type A (PCR) Influenza Type B (PCR) RSV RNA Qual (PCR) SARS-CoV-2 RNA (RT-PCR) Assessment and Plan (1) ILD (interstitial lung disease): Status: Acute (2) Acute on chronic hypoxic respiratory failure: Status: Acute (3) Pulmonary edema: Status: Acute Plan 49F PMH chronic hypoxic respiratory failure due to interstitial lung disease on 3 L home O2, Crohn's, rosacea, GERD with esophagitis, osteoporosis presented with shortness of breath. Acute on chronic hypoxic respiratory failure likely multifactorial in the setting of ILD exacerbation and pulmonary edema, worsening, at this time on 6L of O2 Pulmonary Edema Interstitial lung disease, chronic -labs and imaging reviewed -Will give IV lasix at this time as well as 0.5mg of morphine -will increase IV steroids to every 8 hrs -Continue Rocephin and Azithromycin -ontinue Xopenex -Monitor and adjust for SpO2 greater than 90% -Pulmonlogy consulted Rosacea Continue topical Flagyl Esophagitis Continue IV PPI and Carafate Crohn's, chronic, Stable -monitor for any signs of bleeding Osteoporosis On daily Forteo at home DVT prophylaxis with Lovenox Full code Total time managing care of this patient today: 55 minutes. Quality Stroke Does the patient have a stroke diagnosis?: No VTE Prior VTE?: No VTE Risk Level:: Medical - moderate - high VTE Device Contraindication: Treatment Not Indicated VTE Drug Contraindication: N/A - Med Ordered
[2025-05-22] MEDS: Sucralfate Oral Suspension 1 GM/10 ML ORAL.SUSP PO ×4 (12:22→20:32)
--- NOTE | 2025-05-22 12:27 | PC.NURSE ---
Patient voiding well after IV Lasix, patient using brief due void due to respiratory demand. Lung sounds improved, crackles still auscultated but with improvement, upper lobes sound more diminished/crackles and diminished anterior now instead of crackles. Titrating down spO2. Patient appears more at ease with unlabored breathing.
[2025-05-22 13:09] LABS: Chlamydia pneumoniae PCR Not Detected (Not Detect.); Coronavirus 229E PCR Not Detected (Not Detect.); Coronavirus HKU1 PCR Not Detected (Not Detect.); Coronavirus NL63 PCR Not Detected (Not Detect.); Coronavirus OC43 PCR Not Detected (Not Detect.); Influenza A H1 PCR Not Detected (Not Detect.); Influenza A H1-2009 PCR Not Detected (Not Detect.); Influenza A H3 PCR Not Detected (Not Detect.); RSV PCR Not Detected (Not Detect.); Rhino/Enterovirus PCR Not Detected (Not Detect.); SARS-CoV-2 PCR Not Detected (Not Detect.)
--- NOTE | 2025-05-22 13:28 | PC.NURSE ---
Nurses aid had recently assisted patient with turning in bed to clean up incontinent brief. DIRECTOR OF ELEMENTARY EDUCATION put purwick on patient due to large incontinence from IV Lasix. RN Pascual on the unit informed this nurse that he was switching patient over from 5L simple face mask to 5L nasal cannula so patient could eat lunch, while this nurse was providing care to another patient. While this nurse was assisting another patient, a rapid response was called overhead for this patient by ammunition and explosives handler Windy. Windy reported she called a rapid response due to patient spO2 54% with good pleth. Upon this nurse entering room, patient had blue lips and reddened face, non-rebreather placed on patient to 15L. Patient's spO2 increased quickly to 90%, rapid response team and provider Shane Marcos at bedside. Patient transferred to med/tele unit with rapid response nurse and report given to accepting RN.
[2025-05-22] MEDS: Furosemide 20 MG/2 ML VIAL IVPUSH (13:32)
--- NOTE | 2025-05-22 13:36 | MHC.CM.PN ---
PT HAD RAPID RESPONSE CALLED DUE TO SOB/LOW 02 SATS. CM WILL RE-APPROACH WHEN PT ABLE TO PARTICIPATE.
--- NOTE | 2025-05-22 14:34 | P.CONPL_ITS ---
History of Present Illness History of Present Illness Consult date: 05/22/25 Chief complaint: ild Narrative: 49-year-old lady with underlying Crohn's, IgA gammopathy, interstitial lung disease on 3 L of supplemental oxygen and chronic prednisone 7.5 mg daily admitted on 05/21/2025 with progressive dyspnea over several days prior to admission. On ER evaluation patient with worsening hypoxemia requiring increased supplemental oxygen to maintain normal oximetry. Patient was admitted to the hospital and started on empiric increased cm glucocorticoids diuretic with modest improvement. Review of Systems 2 Constitutional: Constitutional: Denies daytime sleepiness, Denies excessive sweating, Denies fatigue, Denies fever(s), Denies lethargy, Denies malaise, Denies night sweats, Denies snoring and Denies weight loss Eyes: Eyes: Denies blurry vision and Denies itchy eyes ENT: Denies nasal congestion, Denies post nasal drip, Denies sinus pain, Denies sinus pressure and Denies other ( Thrush) Cardiovascular: Cardiovascular: Denies chest pain, Denies pedal edema, Reports dyspnea, Reports dyspnea on exertion, Denies orthopnea and Denies paroxysmal nocturnal dyspnea Respiratory: Respiratory: Denies cough, Denies hemoptysis, Denies excessive phlegm production, Reports dyspnea, Reports dyspnea on exertion, Denies snoring and Denies wheezing Gastrointestinal: Gastrointestinal: Denies abdominal pain and Denies heartburn Musculoskeletal: Musculoskeletal: Denies myalgias, Denies arthralgias and Denies joint swelling Integumentary/Breasts: Skin/Breast: Denies rash Neurologic: Denies memory loss and Denies seizure-like activity Psychiatric: Psychiatric: Denies abnormal sleep pattern, Denies anxiety and Denies memory loss Endocrine: Endocrine: Denies excessive sweating, Denies fatigue and Denies heat intolerance Hematologic/Lymphatic: Hematologic/Lymphatic: Denies easy bruising Allergic/Immunologic: Allergic/Immunologic: Denies itchy eyes, Denies seasonal rhinorrhea and Denies wheezing PMFSH Past Medical History Medical History Crohn's disease of colon ILD (interstitial lung disease) Supplemental oxygen dependent Pneumomediastinum Breast cancer screening by mammogram Overweight (BMI 25.0-29.9) Abnormal CT scan, chest Hemorrhoids with complication Colon cancer screening Generalized abdominal pain Visual impairment Duodenal ulcer GERD (gastroesophageal reflux disease) Obesity (BMI 30-39.9) Menometrorrhagia Seizure in childhood Sclerosing mesenteritis GERD without esophagitis Family History Family History Father Myocardial infarct CVA (cerebral vascular accident) Mother No problems noted. Daughter No problems noted. Son No problems noted. Brother Substance abuse Surgical History Surgical History History of esophagogastroduodenoscopy (EGD) Hx of colonoscopy Hx of cholecystectomy (~2005) Hx of hysterectomy Hx of section Social History Social History Household Members: None Housing: House Do you presently have visiting nurse or other home services: No Alcohol intake: never Patient Tobacco Use Status: Never used Tobacco Tobacco use type: Cigarette e-Cigarette/Vaping Use: Never Used Second Hand Smoke Exposure: No service: No Current occupational status: employed and unemployed Current occupation: [employer] Cognitive needs: No Hearing needs: No Vision needs: No Meds Allergies Allergy/AdvReac Type Severity Reaction Status Date / Time No Known Allergies (No Known Allergy Verified 05/21/25 18:04 Allergies*) Active Medications: Current Medications Acetaminophen (Acetaminophen 325 Mg Tablet) 650 mg PO Q6H PRN PRN Reason: Pain, Mild 1-3,fever,headache Calcium Carbonate (Calcium Carbonate 750 Mg Tab.Chew) 750 mg PO Q4H PRN PRN Reason: Heartburn Enoxaparin Sodium (Enoxaparin Sodium 40 Mg/0.4 Ml Syringe) 40 mg SUBCUT Q24H [facility] Last Admin: 05/22/25 09:38 Dose: 40 mg Azithromycin 500 mg/ Sodium (Chloride) 250 mls @ 125 mls/hr IV Q24H [facility] Ceftriaxone Sodium 1 gm/ (Sodium Chloride) 50 mls @ 100 mls/hr IV Q24H [facility] Levalbuterol HCl (Levalbuterol Hcl 1.25 Mg/3 Ml Vial.Neb) 1.25 mg INHALE Q4H PRN PRN Reason: sob Last Admin: 05/22/25 09:56 Dose: 1.25 mg Magnesium Hydroxide (Milk Of Magnesia 30 Ml Oral.Susp) 30 ml PO DAILY PRN PRN Reason: Constipation Melatonin (Melatonin 3 Mg Tablet) 6 mg PO BEDTIME PRN PRN Reason: Insomnia Methylprednisolone Sodium Succinate (Methylprednisolone Sod Succ 40 Mg/Ml Vial) 40 mg IVPUSH Q8H [facility] Last Admin: 05/22/25 10:27 Dose: 40 mg Metronidazole (Metronidazole 0.75 % Gel 45 Gm Tube) 1 appl TOPICAL BID [facility] Last Admin: 05/22/25 09:44 Dose: Not Given Non-Formulary Medication (Ivabradine) 5 mg PO BID [facility] Pt Own (Teriparatide [Forteo] 20 Mcg/Dose (560mcg/2.24ml) Pen Injector) 20 mcg SUBCUT DAILY [facility] Omeprazole (Omeprazole 20 Mg Capsule.Dr) 20 mg PO DAILY@0630 [facility] Last Admin: 05/22/25 05:45 Dose: Not Given Sodium Chloride (0.9 % Sodium Chloride Flush 3 Ml Syringe) 3 ml IVFLUSH QSHIFT [facility] Last Admin: 05/22/25 09:42 Dose: 3 ml Sucralfate (Sucralfate Oral Suspension 1 Gm/10 Ml Oral.Susp) 1 gm PO QIDACHS [facility] Last Admin: 05/22/25 12:22 Dose: 1 gm Sucralfate (Sucralfate Oral Suspension 1 Gm/10 Ml Oral.Susp) 1 gm PO BID [facility] Trazodone HCl (Trazodone Hcl 50 Mg Tablet) 50 mg PO BEDTIME PRN PRN Reason: Insomnia Vitamin D (Cholecalciferol (Vitamin D3) 25 Mcg Tablet) 50 mcg PO DAILY [facility] Home Medications ?Medication ?Instructions ?Recorded ?Confirmed ?Last Taken ?Type metronidazole 0.75 % topical cream 1 appl topical BEDT ALICIA PRN redness 05/09/24 05/22/25 09/21/24 History prednisolone acetate 1 % eye 1 drp ophthalmic-Left TID 04/17/25 05/22/25 05/21/25 History drops,suspension teriparatide 20 mcg/dose (560 20 mcg subcut DAILY 03/2905/22/25 05/21/25 History mcg/2.24 mL) subcutaneous pen injector (Forteo) doxycycline hyclate 20 mg tablet 20 mg PO BID 05/22/25 05/22/25 05/21/25 History sucralfate 100 mg/mL oral 10 ml PO BID 1105/21/25 History suspension Physical Exam 2 Vital Signs: Vital Signs: Last Vital Signs Temp 97.3 F 05/22/25 09:36 Pulse 106 H 05/22/25 12:24 Resp 18 05/22/25 12:24 BP 127/69 05/22/25 10:29 Pulse Ox 95 05/22/25 12:24 O2 Del Method Simple Mask 05/22/25 12:24 O2 Flow Rate 7 05/22/25 12:24 Oxygen Flow Rate 3 05/21/25 18:01 BMI result Body Mass Index 26.0 Const: General: no acute distress and alert Nutritional Appearance: not obese Orientation/consciousness: Other orientation findings ( oriented) HEENT: Head: Yes atraumatic Eyes: General: appearance normal, both eyes and all related structures S clerae: sclerae normal EOM: EOMs intact bilaterally Neck: Neck: Yes supple Lymphatic: no lymphadenopathy noted Resp: Effort & Inspection: normal respiratory effort and no use of accessory muscles Auscultation: crackles (Inspiratory mild bilateral) Cardio: Rate: regular rate Rhythm: regular rhythm Heart sounds: no gallops, no murmurs and no rubs Skin: General skin exam: other ( warm) Extrem: General: No clubbing, No cyanosis and No edema Results Laboratory Findings 05/22/25 05:37 05/22/25 05:37 Abnormal lab findings: Abnormal Labs 05/21/25 05/21/25 05/22/25 18:12 18:29 05:37 WBC 4.6 L RBC 4.02 L Hgb 11.5 L Hct 35.7 L Immature Gran % (Auto) 0.5 H Abs Immat Gran (auto) 0.04 H VBG HCO3 28 H Chloride 113 H Carbon Dioxide 21 L BUN 17 H Random Glucose 141 H Calcium 11.4 H D AST 57 H 46 H ALT 109 H 72 H Alkaline Phosphatase 171 H 136 H Total Protein 9.2 H Albumin 3.0 L Assessment and Plan (1) ILD (interstitial lung disease): Status: Acute (2) Acute on chronic hypoxic respiratory failure: Status: Acute Plan Impression: 49-year-old lady with underlying ILD and supplemental oxygen admitted with worsening dyspnea. Results of CT angio chest reviewed, no pulmonary emboli, but essentially diffuse bilateral inflammatory infiltrate likely secondary to exacerbation of underlying interstitial lung disease. Recommendation: Agree with maintain euvolemia. Suggests increasing systemic glucocorticoids to Solu-Medrol 120 mg IV every 6 hours and reassess response and 48-72 hours. Procedures Date of Service Date of Service: 05/22/25
--- NOTE | 2025-05-22 14:43 | PM.EVENT ---
Event Note Date of Service: 05/22/25 Event Note: Patient developed acute hypoxic respiratory failure, patient given IV Lasix and morphine with improvement. Subsequently while repositioned had worsening hypoxia, given additional 20 mg IV of Lasix. Spoke with pulmonology, suggested increasing methylprednisolone to 125 mg q.6 hours Time Spent With Patient Time: Total time managing care of this patient today ____ minutes.
--- NOTE | 2025-05-22 14:46 | PC.NURSE ---
Patient's home medication Teriparatide brought to med/tele pyxis fridge for administration after transfer to med/tele unit.
[2025-05-23 03:31] VITALS: BP 125/76; PULSE 94; RESP 18; TEMP 36.1; O2SAT 97
[2025-05-23 07:56] VITALS: BP 136/73; PULSE 73; RESP 20; TEMP 36.4; O2SAT 98
[2025-05-23] MEDS: Sucralfate Oral Suspension 1 GM/10 ML ORAL.SUSP PO ×4 (09:57→20:51)
[2025-05-23] MEDS: 0.9 % Sodium Chloride Flush 3 ML SYRINGE IVFLUSH ×3 (09:58→20:52)
[2025-05-23 10:58] VITALS: O2SAT 91
--- NOTE | 2025-05-23 11:17 | MHC.CM.PN ---
Pt. lives alone, PCP is confirmed: Dr. Garcia, HCP is Tana Melo, pt. declined to complete form here. Pt. does not have home health services, for DME, she has home O2 from [facility]. She said her mother and step father help to take care of her. She is able to arrange transport home at [place], DCP; home, with services, CM to follow for DC needs.
[2025-05-23 11:34] VITALS: BP 128/76; PULSE 93; RESP 20; TEMP 36.7; O2SAT 94
[2025-05-23 16:00] VITALS: BP 133/84; PULSE 93; RESP 20; TEMP 36.8; O2SAT 95
[2025-05-23 16:11] LABS: Appearance Urine Turbid; Glucose Urine UA Negative (Negative); PH 5.5 (5.0-9.0); Specific Gravity - Urine >= 1.030 (1.005-1.025); UMIC TRIGGER UACC YES
--- NOTE | 2025-05-23 17:05 | P.PNIM_ITS ---
Subjective Subjective Date of Service: 05/23/25 Interval History: Acute hypoxemic respiratory failure Review of Systems Patient has shortness of breath with minimal exertion Denies any chest pain Still requiring oxygen Review of Systems: Yes all other systems are reviewed and are negative Physical Exam 2 Exam: Exam: Appearance: Alert.? Oriented X3.? cvs: rrr, [id number] . res: air entry abd: no rebound or guarding ,nt, bs present. ext pulses present , no cyanosis . neuro: axo3 , nonfocal. Vital Signs: Vital Signs: Last Vital Signs Temp 98.3 F 05/23/25 16:00 Pulse 93 05/23/25 16:00 Resp 20 05/23/25 16:00 BP 133/84 05/23/25 16:00 Pulse Ox 95 05/23/25 16:00 O2 Del Method Nasal Cannula 05/23/25 16:00 O2 Flow Rate 3.5 05/23/25 16:00 Oxygen Flow Rate 3 05/21/25 18:01 BMI result Body Mass Index 26.0 Objective Data Active Medications Acetaminophen (Acetaminophen 325 Mg Tablet) 650 mg PO Q6H PRN PRN Reason: Pain, Mild 1-3,fever,headache Calcium Carbonate (Calcium Carbonate 750 Mg Tab.Chew) 750 mg PO Q4H PRN PRN Reason: Heartburn Enoxaparin Sodium (Enoxaparin Sodium 40 Mg/0.4 Ml Syringe) 40 mg SUBCUT Q24H [facility] Last Admin: 05/23/25 09:58 Dose: 40 mg Documented By: JULIANNA Azithromycin 500 mg/ Sodium (Chloride) 250 mls @ 125 mls/hr IV Q24H [facility] Last Infusion: 05/22/25 22:10 Dose: Infused Documented By: GETACHEW Ceftriaxone Sodium 1 gm/ (Sodium Chloride) 50 mls @ 100 mls/hr IV Q24H [facility] Last Infusion: 05/22/25 20:41 Dose: Infused Documented By: GETACHEW Levalbuterol HCl (Levalbuterol Hcl 1.25 Mg/3 Ml Vial.Neb) 1.25 mg INHALE Q4H PRN PRN Reason: sob Last Admin: 05/22/25 09:56 Dose: 1.25 mg Documented By: SCOVILBetsy Magnesium Hydroxide (Milk Of Magnesia 30 Ml Oral.Susp) 30 ml PO DAILY PRN PRN Reason: Constipation Melatonin (Melatonin 3 Mg Tablet) 6 mg PO BEDTIME PRN PRN Reason: Insomnia Methylprednisolone Sodium Succinate (Methylprednisolone Sod Succ 125 Mg/2 Ml Vial) 125 mg IVPUSH Q6H [facility] Last Admin: 05/23/25 13:48 Dose: 125 mg Documented By: JULIANNA Metronidazole (Metronidazole 0.75 % Gel 45 Gm Tube) 1 appl TOPICAL BID [facility] Last Admin: 05/23/25 10:33 Dose: Not Given Documented By: JULIANNA Non-Admin Reason: Patient Refused Non-Formulary Medication (Ivabradine) 5 mg PO BID [facility] Pt Own (Teriparatide [Forteo] 20 Mcg/Dose (560mcg/2.24ml) Pen Injector) 20 mcg SUBCUT DAILY [facility] Last Admin: 05/23/25 09:58 Dose: 20 mcg Documented By: JULIANNA Omeprazole (Omeprazole 20 Mg Capsule.Dr) 20 mg PO DAILY@0630 [facility] Last Admin: 05/23/25 06:13 Dose: Not Given Documented By: GETACHEW Non-Admin Reason: Patient Refused Comments: pt stated PCP said not to take anymore Sodium Chloride (0.9 % Sodium Chloride Flush 3 Ml Syringe) 3 ml IVFLUSH QSHIFT [facility] Last Admin: 05/23/25 16:21 Dose: 3 ml Documented By: IMELDA Sucralfate (Sucralfate Oral Suspension 1 Gm/10 Ml Oral.Susp) 1 gm PO QIDACHS [facility] Last Admin: 05/23/25 16:20 Dose: 1 gm Documented By: IMELDA Sucralfate (Sucralfate Oral Suspension 1 Gm/10 Ml Oral.Susp) 1 gm PO BID [facility] Last Admin: 05/23/25 11:25 Dose: Not Given Documented By: JULIANNA Non-Admin Reason: refused, patient eating breakfast Trazodone HCl (Trazodone Hcl 50 Mg Tablet) 50 mg PO BEDTIME PRN PRN Reason: Insomnia Vitamin D (Cholecalciferol (Vitamin D3) 25 Mcg Tablet) 50 mcg PO DAILY [facility] Last Admin: 05/23/25 09:58 Dose: 50 mcg Documented By: JULIANNA Labs 05/22/25 05:37 05/22/25 05:37 Labs: Laboratory Results - last 24 hr 05/22/25 05/23/25 13:10 15:55 Hold Blue Top SEE NOTE Urine Color Yellow Urine Appearance Turbid Urine pH 5.5 Ur Specific [place] >= 1.030 H Urine Protein 30 (1+) H Urine Glucose (UA) Negative Urine Ketones Negative Urine Blood Small (1+) H Urine Nitrite Negative Ur Leukocyte Esterase Negative Microbiology Microbiology Results: Microbiology 05/21/25 18:23 Blood Culture - Preliminary Blood - Venous No growth after 24 hours. 05/21/25 18:23 Blood Culture - Preliminary Blood - Venous No growth after 24 hours. Assessment and Plan (1) ILD (interstitial lung disease): Status: Acute Plan 49F PMH chronic hypoxic respiratory failure due to interstitial lung disease on 3 L home O2, Crohn's, rosacea, GERD with esophagitis, osteoporosis presented with shortness of breath. Acute on chronic hypoxic respiratory failure likely multifactorial in the setting of ILD exacerbation and pulmonary edema, worsening, at this time on 6L of O2 Pulmonary Edema Interstitial lung disease, chronic cta:Centrilobular patchy ground-glass opacities and interstitial thickening in under-expanded lungs; pulmonary edema. bnp normal plan: i/o 3.2/1.2 liter will add echo (recent echo in : seems ef:60-70% continue IV steroids to every 8 hrs,Rocephin and Azithromycin, Xopenex Monitor and adjust for SpO2 greater than 90% Pulmonlogy consulted- increasing systemic glucocorticoids to Solu-Medrol 120 mg IV every 6 hours and reassess response and 48-72 hours. Rosacea Continue topical Flagyl Esophagitis Continue IV PPI and Carafate Crohn's, chronic, Stable -monitor for any signs of bleeding Osteoporosis On daily Forteo at home DVT prophylaxis with Lovenox. ongoing need stay:Acute on chronic hypoxic respiratory failure likely multifactorial in the setting of ILD exacerbation and pulmonary edema, worsening: Need taper oxygen, IV steroids, monitor respiratory status. Quality Stroke Does the patient have a stroke diagnosis?: No VTE Prior VTE?: No VTE Risk Level:: Medical - moderate - high VTE Device Contraindication: Treatment Not Indicated VTE Drug Contraindication: N/A - Med Ordered
[2025-05-23 17:10] LABS: Other Crystals Urine Present
[2025-05-23] MEDS: Furosemide 20 MG/2 ML VIAL IVPUSH (17:57)
[2025-05-23 20:00] VITALS: BP 112/75; PULSE 101; RESP 18; TEMP 36.7; O2SAT 94
[2025-05-24] VITALS (7 sets, daily range): BP systolic 133–148; BP diastolic 70–89; PULSE 56–108; RESP 16–20; TEMP 36.2–36.9; O2SAT 95–100
[2025-05-24] MEDS: 0.9 % Sodium Chloride Flush 3 ML SYRINGE IVFLUSH ×2 (08:50→15:55)
[2025-05-24] MEDS: Sucralfate Oral Suspension 1 GM/10 ML ORAL.SUSP PO ×4 (08:50→21:42)
[2025-05-24] MEDS: Furosemide 20 MG/2 ML VIAL IVPUSH (08:51)
[2025-05-24] MEDS: metroNIDAZOLE 0.75 % Gel 45 GM TUBE 1 APPL TOPICAL (08:51)
[2025-05-24 09:02] LABS: Anion Gap 13 (12-20); Blood Urea Nitrogen 41 mg/dL (9-16); Calcium 9.8 mg/dL (8.4-10.2); Carbon Dioxide 27 mmol/L (22-29); Chloride 107 mmol/L (96-108); Creatinine Clr Calc Pharmacy 94.8; Estimated Glomerular Filt Rate > 60; Potassium 3.8 mmol/L (3.3-5.1); Sodium 143 mmol/L (135-145)
[2025-05-24] MEDS: Ferrous Sulfate 324 MG TABLET.DR PO (11:31)
[2025-05-24] MEDS: prednisoLONE Acetate 1 % Oph Susp 5 ML DRPBTL 1 DROP EYE-LEFT ×3 (11:31→21:43)
--- NOTE | 2025-05-24 15:15 | P.PNIM_ITS ---
Subjective Subjective Date of Service: 05/24/25 Interval History: ild execerebation Review of Systems sob seems somewhat improving oxygen demad also improving Physical Exam 2 Exam: Exam: Appearance: Alert.? Oriented X3.? cvs: [id number], [id number] . res: air entry abd: no rebound or guarding ,nt, bs present. ext pulses present , no cyanosis . neuro: axo3 , nonfocal. Vital Signs: Vital Signs: Last Vital Signs Temp 98.4 F 05/24/25 11:49 Pulse 108 H 05/24/25 11:49 Resp 20 05/24/25 11:49 BP 138/77 05/24/25 11:49 Pulse Ox 95 05/24/25 11:49 O2 Del Method Nasal Cannula 05/24/25 11:49 O2 Flow Rate 3.5 05/24/25 11:49 Oxygen Flow Rate 3 05/21/25 18:01 BMI result Body Mass Index 26.0 Objective Data Active Medications Acetaminophen (Acetaminophen 325 Mg Tablet) 650 mg PO Q6H PRN PRN Reason: Pain, Mild 1-3,fever,headache Calcium Carbonate (Calcium Carbonate 750 Mg Tab.Chew) 750 mg PO Q4H PRN PRN Reason: Heartburn Enoxaparin Sodium (Enoxaparin Sodium 40 Mg/0.4 Ml Syringe) 40 mg SUBCUT Q24H [facility] Last Admin: 05/24/25 09:13 Dose: 40 mg Documented By: MICHELLE Ferrous Sulfate (Ferrous Sulfate 324 Mg Tablet.) 324 mg PO DAILY [facility] Last Admin: 05/24/25 11:31 Dose: 324 mg Documented By: MICHELLE Azithromycin 500 mg/ Sodium (Chloride) 250 mls @ 125 mls/hr IV Q24H [facility] Last Infusion: 05/23/25 20:16 Dose: Infused Documented By: ANAM Ceftriaxone Sodium 1 gm/ (Sodium Chloride) 50 mls @ 100 mls/hr IV Q24H [facility] Last Infusion: 05/23/25 17:43 Dose: Infused Documented By: IMELDA Levalbuterol HCl (Levalbuterol Hcl 1.25 Mg/3 Ml Vial.Neb) 1.25 mg INHALE Q4H PRN PRN Reason: sob Last Admin: 05/22/25 09:56 Dose: 1.25 mg Documented By: ALESSANDRO Magnesium Hydroxide (Milk Of Magnesia 30 Ml Oral.Susp) 30 ml PO DAILY PRN PRN Reason: Constipation Melatonin (Melatonin 3 Mg Tablet) 6 mg PO BEDTIME PRN PRN Reason: Insomnia Methylprednisolone Sodium Succinate (Methylprednisolone Sod Succ 125 Mg/2 Ml Vial) 125 mg IVPUSH Q6H [facility] Last Admin: 05/24/25 08:50 Dose: 125 mg Documented By: MICHELLE Metronidazole (Metronidazole 0.75 % Gel 45 Gm Tube) 1 appl TOPICAL BID [facility] Last Admin: 05/24/25 08:51 Dose: 1 appl Documented By: MICHELLE Non-Formulary Medication (Ivabradine) 5 mg PO BID [facility] Pt Own (Teriparatide [Forteo] 20 Mcg/Dose (560mcg/2.24ml) Pen Injector) 20 mcg SUBCUT DAILY [facility] Last Admin: 05/24/25 08:52 Dose: 20 mcg Documented By: MICHELLE Omeprazole (Omeprazole 20 Mg Capsule.Dr) 20 mg PO BID@0630,1630 [facility] Prednisolone Acetate (Prednisolone Acetate 1 % Oph Susp 5 Ml Drpbtl) 1 drop EYE-LEFT TID [facility] Last Admin: 05/24/25 11:31 Dose: 1 drop Documented By: MICHELLE Sodium Chloride (0.9 % Sodium Chloride Flush 3 Ml Syringe) 3 ml IVFLUSH QSHIFT [facility] Last Admin: 05/24/25 08:50 Dose: 3 ml Documented By: MICHELLE Sucralfate (Sucralfate Oral Suspension 1 Gm/10 Ml Oral.Susp) 1 gm PO QIDACHS [facility] Last Admin: 05/24/25 11:31 Dose: 1 gm Documented By: MICHELLE Sucralfate (Sucralfate Oral Suspension 1 Gm/10 Ml Oral.Susp) 1 gm PO BID [facility] Last Admin: 05/24/25 08:51 Dose: Not Given Documented By: MICHELLE Non-Admin Reason: Patient Refused Trazodone HCl (Trazodone Hcl 50 Mg Tablet) 50 mg PO BEDTIME PRN PRN Reason: Insomnia Vitamin D (Cholecalciferol (Vitamin D3) 25 Mcg Tablet) 50 mcg PO DAILY [facility] Last Admin: 05/24/25 08:51 Dose: 50 mcg Documented By: MICHELLE Labs 05/22/25 05:37 05/24/25 08:32 Labs: Laboratory Results - last 24 hr 05/23/25 05/24/25 15:55 08:32 Anion Gap 13 Estim Creat Clear Calc 94.8 Estimated GFR > 60 Random Glucose 140 H Calcium 9.8 D Urine Color Yellow Urine Appearance Turbid Urine pH 5.5 Ur Specific Foley >= 1.030 H Urine Protein 30 (1+) H Urine Glucose (UA) Negative Urine Ketones Negative Urine Blood Small (1+) H Urine Nitrite Negative Ur Leukocyte Esterase Negative Urine RBC 6-10 H Urine WBC 0-5 Ur Squamous Epith Cells 0-2 Other Crystals Present Urine Bacteria None Seen Hyaline Casts 0-2 Microbiology Microbiology Results: Microbiology 05/21/25 18:23 Blood Culture - Preliminary Blood - Venous No growth after 48 hours. 05/21/25 18:23 Blood Culture - Preliminary Blood - Venous No growth after 48 hours. Assessment and Plan (1) ILD (interstitial lung disease): Status: Acute Plan 49F PMH chronic hypoxic respiratory failure due to interstitial lung disease on 3 L home O2, Crohn's, rosacea, GERD with esophagitis, osteoporosis presented with shortness of breath. Acute on chronic hypoxic respiratory failure likely multifactorial in the setting of ILD exacerbation and pulmonary edema, worsening, at this time on 6L of O2 Pulmonary Edema Interstitial lung disease, chronic cta:Centrilobular patchy ground-glass opacities and interstitial thickening in under-expanded lungs; pulmonary edema. bnp normal plan: i/o 4/3 liter added echo (recent echo in : seems ef:60-70% continue IV steroids to every 8 hrs,Rocephin and Azithromycin, Xopenex Monitor and adjust for SpO2 greater than 90% Pulmonlogy consulted- increasing systemic glucocorticoids to Solu-Medrol 120 mg IV every 6 hours and reassess response and 48-72 hours. Rosacea Continue topical Flagyl Esophagitis Continue IV PPI and Carafate Crohn's, chronic, Stable -monitor for any signs of bleeding Osteoporosis On daily Forteo at home DVT prophylaxis with Lovenox. ongoing need stay:Acute on chronic hypoxic respiratory failure likely multifactorial in the setting of ILD exacerbation and pulmonary edema, worsening: Need taper oxygen, IV steroids, monitor respiratory status. Quality Stroke Does the patient have a stroke diagnosis?: No VTE Prior VTE?: No VTE Risk Level:: Medical - moderate - high VTE Device Contraindication: Treatment Not Indicated VTE Drug Contraindication: N/A - Med Ordered
[2025-05-24 15:25] LABS: Hematocrit 41.8 % (37.0-47.0); Hemoglobin 13.5 g/dl (12.0-16.0)
[2025-05-25] MEDS: 0.9 % Sodium Chloride Flush 3 ML SYRINGE IVFLUSH ×4 (00:45→20:27)
[2025-05-25 02:48] VITALS: BP 133/80; PULSE 51; RESP 18; TEMP 37; O2SAT 98
--- NOTE | 2025-05-25 07:00 | CA_ITS ---
Transthoracic Echocardiogram Patient (Last, First, Middle): Helen Angela D Gender: Female Date of : 1975 Age: 49 Procedure Date: 05/25/2025 Procedure Type: Transthoracic Echocardiogram [place] [facility] [place]: 157.48 cm Weight: 64.41 kg BSA: 1.65 m2 Heart Rate: 78 bpm BP: 133 / 80 mmHg [employer] Worker: RUPAL Referring MD: Margoth Aguayo MD Symptoms: ?pulm edema Study Quality: Adequate ECG Rhythm: Sinus Conclusions: - Normal left ventricular size and systolic function. There is mildly increased left ventricular wall thickness. The visually estimated ejection fraction is between 55-60%. - E/E prime ratio is between 8 and 15 consistent with indeterminate filling pressures. - Mildly increased right ventricular cavity size. There is normal right ventricular systolic function. - There is mild dilatation of the sinuses of Valsalva measuring 3.30 cm and mild dilatation of the ascending aorta measuring 3.20 cm. Findings Left Ventricle Normal left ventricular size and systolic function. There is mildly increased left ventricular wall thickness. The visually estimated ejection fraction is between 55-60%. There is no evidence of regional wall motion abnormalities. Abnormal diastolic function is noted. Spectral Doppler is indicative of an impaired relaxation filling pattern. E/E prime ratio is between 8 and 15 consistent with indeterminate filling pressures. Right Ventricle Mildly increased right ventricular cavity size. There is normal right ventricular systolic function. Atria The left atrium is normal in size. The right atrium is normal in size. Aortic Valve There is a normal trileaflet aortic valve. There is no aortic valve stenosis. There is no aortic valve regurgitation. Mitral Valve The mitral valve appears normal. There is no mitral valve regurgitation. There is no mitral valve stenosis. Pulmonic Valve The pulmonic valve is likely normal. Tricuspid Valve Normal tricuspid valve structure. There is no tricuspid valve regurgitation. Normal right atrial pressure. There is no evidence of pulmonary hypertension. Great Vessels There is mild dilatation of the sinuses of Valsalva measuring 3.30 cm and mild dilatation of the ascending aorta measuring 3.20 cm. Venous The inferior vena cava is normal in size and collapses greater than 50% with inspiration. Pericardium/Pleural There is no evidence of pericardial effusion. Prior Study Comparison Changes noted compared to prior study dated: 07/17/2024. Indeterminate filling pressures. Mild RV dilation, Mild aortic dilation. Measurements 2D Linear Measurements IVSd: 1.00 0.6-0.9/0.6-1.0 cm LVIDd: 3.62 3.9-5.3/4.2-5.9 cm LVIDd Index: 2.19 2.4-3.2/2.2-3.1 cm/m2 LVIDs: 2.11 2.0-3.6 cm LVPWd: 0.94 0.7-1.1 cm LA Diam: 3.40 2.7-3.8/3.0-4.0 cm LAIDs Index: 2.06 1.5-2.3 cm/m2 LV Mass: 129.61 67-162/88-224 g LV Mass Index: 78.55 43-95/49-115 g/m2 LVOT Diam: 2.00 3.0+(-)1.3 cm 2D Systolic Function EF 4C: 55.20 >55% EF 2C: 55.50 >55% EF BiP: 55.70 >55% Mitral Valve MV Pk E: 0.64 MV PK A: 0.83 MV Decel Time: 221.00 E/A: 0.80 E'Lateral: 6.74 E'Medial: 4.46 E/E' Med: 14.40 E/E' Lat: 9.50 PHT: 65.00 MVA PHT: 3.38 Decel Posey: 2.91 Aortic Valve AoV Pk Veto: 1.03 AoV Mn Veto: 0.73 AoV VTI: 0.19 AoV Pk Grad: 4.00 Aov Mn Grad: 2.00 NATHALIA Cont.VTI: 2.65 LVOT LVOT Pk Veto: 0.91 LVOT Mn Veto: 0.59 LVOT VTI: 0.16 LVOT Pk Grad: 3.00 LVOT Mn Grad: 2.00 LVOT Diam: 2.00 LVOT Area: 3.14 Diastolic Function MV Pk E: 0.64 MV Pk A: 0.83 E/A: 0.80 E'Medial: 4.46 E/E' Med: 14.40 E' Laterial: 6.74 E/E' Lat: 9.50 Right Ventricle TAPSE (mm): 24.80 TVS' Veto: 18.60 Tricuspid Valve TR Pk Veto: 2.29 TR Pk Grad: 21.00 RA Press: 3.00 RVSP: 24.00 Great Vessels Aorta Sinus of Valsalva: 3.30 2.0-3.5 cm Ao Asc: 3.20 2.1-3.4 cm Ao Arch: 2.60 Pulmonary Veins Pulm Vein S/D 1.90 Pulmonary Valve PV Pk Veto: 0.88 Peak PV Grad: 3.00 Updated in Other Vendor System with Status of Final Herman Finely MD electronically signed on 05/26/2025 1:37:44 PM with status of Final
[2025-05-25 08:00] VITALS: BP 127/65; PULSE 82; RESP 16; TEMP 36.8; O2SAT 96
--- NOTE | 2025-05-25 08:28 | P.PNIM_ITS ---
Subjective Subjective Date of Service: 05/25/25 Interval History: ild Review of Systems Patient is still short of breath with minimal exertion, says somewhat improving Review of Systems: Yes all other systems are reviewed and are negative Physical Exam 2 Exam: Exam: Appearance: Alert.? Oriented X3.? cvs: rrr, [id number] . res: air entry abd: no rebound or guarding ,nt, bs present. ext pulses present , no cyanosis . neuro: axo3 , nonfocal. Vital Signs: Vital Signs: Last Vital Signs Temp 98.6 F 05/25/25 02:48 Pulse 51 05/25/25 02:48 Resp 18 05/25/25 02:48 BP 133/80 05/25/25 02:48 Pulse Ox 98 05/25/25 02:48 O2 Del Method Nasal Cannula 05/25/25 02:48 O2 Flow Rate 4 05/25/25 02:48 Oxygen Flow Rate 3 05/21/25 18:01 BMI result Body Mass Index 26.0 Objective Data Active Medications Acetaminophen (Acetaminophen 325 Mg Tablet) 650 mg PO Q6H PRN PRN Reason: Pain, Mild 1-3,fever,headache Calcium Carbonate (Calcium Carbonate 750 Mg Tab.Chew) 750 mg PO Q4H PRN PRN Reason: Heartburn Enoxaparin Sodium (Enoxaparin Sodium 40 Mg/0.4 Ml Syringe) 40 mg SUBCUT Q24H [facility] Last Admin: 05/24/25 09:13 Dose: 40 mg Documented By: MICHELLE Ferrous Sulfate (Ferrous Sulfate 324 Mg Tablet.Dr) 324 mg PO DAILY [facility] Last Admin: 05/24/25 11:31 Dose: 324 mg Documented By: MICHELLE Azithromycin 500 mg/ Sodium (Chloride) 250 mls @ 125 mls/hr IV Q24H [facility] Last Infusion: 05/24/25 21:12 Dose: Infused Documented By: ANAM Ceftriaxone Sodium 1 gm/ (Sodium Chloride) 50 mls @ 100 mls/hr IV Q24H [facility] Last Infusion: 05/24/25 18:57 Dose: Infused Documented By: ANAM Levalbuterol HCl (Levalbuterol Hcl 1.25 Mg/3 Ml Vial.Neb) 1.25 mg INHALE Q4H PRN PRN Reason: sob Last Admin: 05/22/25 09:56 Dose: 1.25 mg Documented By: ALESSANDRO Magnesium Hydroxide (Milk Of Magnesia 30 Ml Oral.Susp) 30 ml PO DAILY PRN PRN Reason: Constipation Melatonin (Melatonin 3 Mg Tablet) 6 mg PO BEDTIME PRN PRN Reason: Insomnia Methylprednisolone Sodium Succinate (Methylprednisolone Sod Succ 125 Mg/2 Ml Vial) 125 mg IVPUSH Q6H [facility] Last Admin: 05/25/25 03:11 Dose: 125 mg Documented By: MAGAN Metronidazole (Metronidazole 0.75 % Gel 45 Gm Tube) 1 appl TOPICAL BID [facility] Last Admin: 05/24/25 21:43 Dose: Not Given Documented By: ANAM Non-Admin Reason: Patient Refused Non-Formulary Medication (Ivabradine) 5 mg PO BID [facility] Pt Own (Teriparatide [Forteo] 20 Mcg/Dose (560mcg/2.24ml) Pen Injector) 20 mcg SUBCUT DAILY [facility] Last Admin: 05/24/25 08:52 Dose: 20 mcg Documented By: MICHELLE Omeprazole (Omeprazole 20 Mg Capsule.Dr) 20 mg PO BID@0630,1630 [facility] Last Admin: 05/25/25 05:33 Dose: Not Given Documented By: MAGAN Non-Admin Reason: Patient Refused Prednisolone Acetate (Prednisolone Acetate 1 % Oph Susp 5 Ml Drpbtl) 1 drop EYE-LEFT TID [facility] Last Admin: 05/24/25 21:43 Dose: 1 drop Documented By: ANAM Sodium Chloride (0.9 % Sodium Chloride Flush 3 Ml Syringe) 3 ml IVFLUSH QSHIFT [facility] Last Admin: 05/25/25 00:45 Dose: 3 ml Documented By: MAGAN Sucralfate (Sucralfate Oral Suspension 1 Gm/10 Ml Oral.Susp) 1 gm PO QIDACHS [facility] Last Admin: 05/24/25 21:42 Dose: 1 gm Documented By: ANAM Sucralfate (Sucralfate Oral Suspension 1 Gm/10 Ml Oral.Susp) 1 gm PO BID [facility] Last Admin: 05/24/25 21:43 Dose: Not Given Documented By: ANAM Non-Admin Reason: Duplicate Order Trazodone HCl (Trazodone Hcl 50 Mg Tablet) 50 mg PO BEDTIME PRN PRN Reason: Insomnia Vitamin D (Cholecalciferol (Vitamin D3) 25 Mcg Tablet) 50 mcg PO DAILY [facility] Last Admin: 05/24/25 08:51 Dose: 50 mcg Documented By: MICHELLE Labs 05/25/25 09:34 05/25/25 09:34 Labs: Laboratory Results - last 24 hr 05/24/25 08:32 Anion Gap 13 Estim Creat Clear Calc 94.8 Estimated GFR > 60 Random Glucose 140 H Calcium 9.8 D Assessment and Plan (1) ILD (interstitial lung disease): Status: Acute Plan 49F PMH chronic hypoxic respiratory failure due to interstitial lung disease on 3 L home O2, Crohn's, rosacea, GERD with esophagitis, osteoporosis presented with shortness of breath. Acute on chronic hypoxic respiratory failure likely multifactorial in the setting of ILD exacerbation and pulmonary edema, worsening, at this time on 6L of O2 Pulmonary Edema Interstitial lung disease, chronic cta:Centrilobular patchy ground-glass opacities and interstitial thickening in under-expanded lungs; pulmonary edema. bnp normal plan: i/o 4.4/3.7 liter added echo (recent echo in : seems ef:60-70% continue IV steroids to every 8 hrs,Rocephin and Azithromycin, Xopenex Monitor and adjust for SpO2 greater than 90% Pulmonlogy consulted- increasing systemic glucocorticoids to Solu-Medrol 120 mg IV every 6 hours and reassess response and 48-72 hours. Rosacea Continue topical Flagyl Esophagitis Continue IV PPI and Carafate Crohn's, chronic, Stable monitor for any signs of bleeding Osteoporosis On daily Forteo at home DVT prophylaxis with Lovenox. ongoing need stay:Acute on chronic hypoxic respiratory failure likely multifactorial in the setting of ILD exacerbation and pulmonary edema, worsening: Need taper oxygen, IV steroids, monitor respiratory status. Quality Stroke Does the patient have a stroke diagnosis?: No VTE Prior VTE?: No VTE Risk Level:: Medical - moderate - high VTE Device Contraindication: Treatment Not Indicated VTE Drug Contraindication: N/A - Med Ordered
[2025-05-25] MEDS: prednisoLONE Acetate 1 % Oph Susp 5 ML DRPBTL 1 DROP EYE-LEFT ×3 (09:05→20:27)
[2025-05-25] MEDS: Sucralfate Oral Suspension 1 GM/10 ML ORAL.SUSP PO ×4 (09:08→20:18)
[2025-05-25] MEDS: Ferrous Sulfate 324 MG TABLET.DR PO (09:09)
[2025-05-25 09:42] LABS: Hematocrit 40.2 % (37.0-47.0); Hemoglobin 12.8 g/dl (12.0-16.0)
[2025-05-25 10:09] LABS: Anion Gap 12 (12-20); Blood Urea Nitrogen 42 mg/dL (9-16); Calcium 9.9 mg/dL (8.4-10.2); Carbon Dioxide 29 mmol/L (22-29); Chloride 109 mmol/L (96-108); Creatinine Clr Calc Pharmacy 99.5; Estimated Glomerular Filt Rate > 60; Potassium 3.8 mmol/L (3.3-5.1); Sodium 146 mmol/L (135-145)
[2025-05-25 12:00] VITALS: BP 137/78; PULSE 87; RESP 18; TEMP 36.6; O2SAT 97
--- NOTE | 2025-05-25 14:13 | MHC.CM.PN ---
PER ROUNDS PT NOT DC READY DC PLAN REMAINS HOME
[2025-05-25 15:17] VITALS: BP 155/86; PULSE 68; RESP 18; TEMP 36.4; O2SAT 98
[2025-05-25 19:45] VITALS: BP 143/81; PULSE 63; RESP 18; TEMP 36.6; O2SAT 99
[2025-05-25 23:50] VITALS: BP 149/85; PULSE 62; RESP 18; TEMP 37.1; O2SAT 100
[2025-05-26] VITALS (7 sets, daily range): BP systolic 133–159; BP diastolic 81–98; PULSE 67–85; RESP 18–20; TEMP 36.2–37; O2SAT 93–99
--- NOTE | 2025-05-26 07:51 | P.PNIM_ITS ---
Subjective Subjective Date of Service: 05/26/25 Interval History: ILD Review of Systems sob somewhat improving but sob with minimal excersion ,advised to try ambulation and see respose. Review of Systems: Yes all other systems are reviewed and are negative Physical Exam 2 Exam: Exam: Appearance: Alert.? Oriented X3.? cvs: rrr, [id number] . res: air entry abd: no rebound or guarding ,nt, bs present. ext pulses present , no cyanosis . neuro: axo3 , nonfocal. Vital Signs: Vital Signs: Last Vital Signs Temp 97.4 F 05/26/25 07:17 Pulse 71 05/26/25 07:17 Resp 18 05/26/25 07:17 BP 159/89 H 05/26/25 07:17 Pulse Ox 99 05/26/25 07:17 O2 Del Method Nasal Cannula 05/26/25 07:17 O2 Flow Rate 4 05/26/25 07:17 Oxygen Flow Rate 3 05/21/25 18:01 BMI result Body Mass Index 26.0 Objective Data Active Medications Acetaminophen (Acetaminophen 325 Mg Tablet) 650 mg PO Q6H PRN PRN Reason: Pain, Mild 1-3,fever,headache Calcium Carbonate (Calcium Carbonate 750 Mg Tab.Chew) 750 mg PO Q4H PRN PRN Reason: Heartburn Enoxaparin Sodium (Enoxaparin Sodium 40 Mg/0.4 Ml Syringe) 40 mg SUBCUT Q24H [facility] Last Admin: 05/25/25 09:09 Dose: 40 mg Documented By: ELVIA Ferrous Sulfate (Ferrous Sulfate 324 Mg Tablet.) 324 mg PO DAILY [facility] Last Admin: 05/25/25 09:09 Dose: 324 mg Documented By: ELVIA Azithromycin 500 mg/ Sodium (Chloride) 250 mls @ 125 mls/hr IV Q24H [facility] Last Infusion: 05/25/25 22:20 Dose: Infused Documented By: RODNEY Ceftriaxone Sodium 1 gm/ (Sodium Chloride) 50 mls @ 100 mls/hr IV Q24H [facility] Last Infusion: 05/25/25 20:33 Dose: Infused Documented By: RODNEY Levalbuterol HCl (Levalbuterol Hcl 1.25 Mg/3 Ml Vial.Neb) 1.25 mg INHALE Q4H PRN PRN Reason: sob Last Admin: 05/22/25 09:56 Dose: 1.25 mg Documented By: ALESSANDRO Magnesium Hydroxide (Milk Of Magnesia 30 Ml Oral.Susp) 30 ml PO DAILY PRN PRN Reason: Constipation Melatonin (Melatonin 3 Mg Tablet) 6 mg PO BEDTIME PRN PRN Reason: Insomnia Methylprednisolone Sodium Succinate (Methylprednisolone Sod Succ 125 Mg/2 Ml Vial) 60 mg IVPUSH Q6H [facility] Last Admin: 05/26/25 03:59 Dose: 60 mg Documented By: RODNEY Metronidazole (Metronidazole 0.75 % Gel 45 Gm Tube) 1 appl TOPICAL BID [facility] Last Admin: 05/25/25 22:40 Dose: Not Given Documented By: RODNEY Non-Admin Reason: Patient Refused Non-Formulary Medication (Ivabradine) 5 mg PO BID [facility] Pt Own (Teriparatide [Forteo] 20 Mcg/Dose (560mcg/2.24ml) Pen Injector) 20 mcg SUBCUT DAILY [facility] Last Admin: 05/25/25 09:15 Dose: 20 mcg Documented By: ELVIA Omeprazole (Omeprazole 20 Mg Capsule.Dr) 20 mg PO BID@0630,1630 [facility] Last Admin: 05/26/25 05:52 Dose: Not Given Documented By: RODNEY Non-Admin Reason: pt declined Prednisolone Acetate (Prednisolone Acetate 1 % Oph Susp 5 Ml Drpbtl) 1 drop EYE-LEFT TID [facility] Last Admin: 05/25/25 20:27 Dose: 1 drop Documented By: RODNEY Sodium Chloride (0.9 % Sodium Chloride Flush 3 Ml Syringe) 3 ml IVFLUSH QSHIFT [facility] Last Admin: 05/25/25 20:27 Dose: 3 ml Documented By: RODNEY Sucralfate (Sucralfate Oral Suspension 1 Gm/10 Ml Oral.Susp) 1 gm PO QIDACHS [facility] Last Admin: 05/25/25 20:18 Dose: 1 gm Documented By: RODNEY Trazodone HCl (Trazodone Hcl 50 Mg Tablet) 50 mg PO BEDTIME PRN PRN Reason: Insomnia Vitamin D (Cholecalciferol (Vitamin D3) 25 Mcg Tablet) 50 mcg PO DAILY [facility] Last Admin: 05/25/25 09:09 Dose: 50 mcg Documented By: HO.MALDONA Labs 05/25/25 09:34 05/25/25 09:34 Labs: Laboratory Results - last 24 hr 05/25/25 09:34 Anion Gap 12 Estim Creat Clear Calc 99.5 Estimated GFR > 60 Random Glucose 148 H Calcium 9.9 Assessment and Plan (1) ILD (interstitial lung disease): Status: Acute Plan 49F PMH chronic hypoxic respiratory failure due to interstitial lung disease on 3 L home O2, Crohn's, rosacea, GERD with esophagitis, osteoporosis presented with shortness of breath. Acute on chronic hypoxic respiratory failure likely multifactorial in the setting of ILD exacerbation and pulmonary edema, worsening, at this time on 6L of O2 Pulmonary Edema Interstitial lung disease, chronic cta:Centrilobular patchy ground-glass opacities and interstitial thickening in under-expanded lungs; pulmonary edema. bnp normal plan: i/o 5.5/4.6 liter echo pending (recent echo in : seems ef:60-70% trial of taper oxygen ,Rocephin and Azithromycin, Xopenex Monitor and adjust for SpO2 greater than 90% Pulmonlogy consulted- increasing systemic glucocorticoids to Solu-Medrol 120 mg IV every 6 hours and reassess response and 48-72 hours. Rosacea Continue topical Flagyl Esophagitis Continue IV PPI and Carafate Crohn's, chronic, Stable monitor for any signs of bleeding Osteoporosis On daily Forteo at home DVT prophylaxis with Lovenox. ongoing need stay:Acute on chronic hypoxic respiratory failure likely multifactorial in the setting of ILD exacerbation and pulmonary edema, worsening: Need taper oxygen, IV steroids, monitor respiratory status. Quality Stroke Does the patient have a stroke diagnosis?: No VTE Prior VTE?: No VTE Risk Level:: Medical - moderate - high VTE Device Contraindication: Treatment Not Indicated VTE Drug Contraindication: N/A - Med Ordered
[2025-05-26] MEDS: Sucralfate Oral Suspension 1 GM/10 ML ORAL.SUSP PO ×4 (09:10→22:11)
[2025-05-26] MEDS: metroNIDAZOLE 0.75 % Gel 45 GM TUBE 1 APPL TOPICAL (09:10)
[2025-05-26] MEDS: prednisoLONE Acetate 1 % Oph Susp 5 ML DRPBTL 1 DROP EYE-LEFT ×2 (09:10→16:14)
[2025-05-26] MEDS: Ferrous Sulfate 324 MG TABLET.DR PO (09:10)
[2025-05-26] MEDS: 0.9 % Sodium Chloride Flush 3 ML SYRINGE IVFLUSH ×3 (09:10→23:51)
[2025-05-27 03:46] VITALS: BP 136/83; PULSE 73; RESP 18; TEMP 37.6; O2SAT 96
[2025-05-27 08:00] VITALS: BP 143/85; PULSE 83; RESP 17; TEMP 36.7; O2SAT 93
--- NOTE | 2025-05-27 08:11 | PM.DS ---
DS: Providers Provider Date of Service: 05/27/25 Date of admission: 05/21/25 22:48 Date of discharge: 05/27/25 Primary care physician: Nolberto Garcia MD Consults: 05/22/25 10:24 Consult to Pulmonology Routine Consulting Provider: [facility] Pulmonology Services Reason for consultation: ILD exacerbation Has provider been notified: No Attending physician on discharge: Margoth Aguayo Discharging clinician: Margoth Aguayo DS: Diagnosis Discharge Diagnosis (1) ILD (interstitial lung disease): Status: Acute DS: Summary Hospital Course Hospital Course: HPI:49F PMH chronic hypoxic respiratory failure due to interstitial lung disease on 3 L home O2, Crohn's, rosacea, GERD with esophagitis, osteoporosis presented with shortness of breath. Patient reports symptoms began about 2 days prior to presentation. On minimal exertion noted that pulse ox dropped into the 70s on her baseline 3 L associated with shortness of breath and dry coughing. On day of presentation she dropped into the 60s and had slow recovery so was brought to ED. In ED initially required non-rebreather. CTA showed centrilobular patchy ground-glass opacities and interstitial thickening. Viral swab negative. Hospital course:49F PMH chronic hypoxic respiratory failure due to interstitial lung disease on 3 L home O2, Crohn's, rosacea, GERD with esophagitis, osteoporosis presented with shortness of breath:cta:Centrilobular patchy ground-glass opacities and interstitial thickening in under-expanded lungs; pulmonary edema,bnp normal: Patient was thought to be predominantly exacerbation of underlying LD, component of pulmonary edema on top of that, echo ordered: Patient was started on high-dose IV steroids, IV diuretics as well as IV antibiotics: With above management patient seems to be improved significantly, shortness of breaths seems to be improved significantly, hypoxia also improved significantly. Patient is on home oxygen. patient already received 5 days of antibiotics, suspicion of pneumonia is low, antibiotics stopped. Patient seen by Pulmonary: Patient seems to be improved significantly and recommended to go home with prednisone 50 mg q.day for 1 month. In addition patient may has component of mild diastolic CHF exacerbation: echo: The visually estimated ejection fraction is between 55-60%. There is no evidence of regional wall motion abnormalities. Abnormal diastolic function is noted. Given IV Lasix, will be going with small dose p.o. Lasix. d/w cardiology and pulm -continue po lasix ,Consider outpatient cardiology evaluation. hx of Esophagitis: contnue po PPI and Carafate. plan: complete prednisone 50 mg po qdx1 month. added ppi . added toprol 25 mg po qd lasix 20 mg po qd, CHF education given-if gains weight 2 lb or more in a week-will need outpatient Lasix dosing assessment with PCP. Consider Follow-up with cardiology outpatient follow up with pcp,pulm. Above management discussed with the patient detail length she understand and in agreement with the above plan, time spent 50 minute. Time Attestation Total time managing care of this patient today: 50 mintues. Discharge Coordination Time (in mins): 50 min Quality: Safe Use of Opioids Does Pt have an Active Cancer Diagnosis on the Problem List?: No Quality: Stroke Does the patient have a stroke diagnosis?: No Physical Exam Exam: Exam: Appearance: Alert.? Oriented X3.? cvs: rrr, [id number] . res: air entry abd: no rebound or guarding ,nt, bs present. ext pulses present , no cyanosis . neuro: axo3 , nonfoca Vital Signs: Vital Signs: Last Vital Signs Temp 99.6 F 05/27/25 03:46 Pulse 73 05/27/25 03:46 Resp 18 05/27/25 03:46 BP 136/83 05/27/25 03:46 Pulse Ox 96 05/27/25 03:46 O2 Del Method Nasal Cannula 05/27/25 03:46 O2 Flow Rate 2 05/27/25 03:46 Oxygen Flow Rate 3 05/21/25 18:01 BMI result Body Mass Index 26.0 DS: Data Imaging CT scan - chest: My impression: CTA: 1. Centrilobular patchy ground-glass opacities and interstitial thickening in under-expanded lungs; pulmonary edema. 2. Bovine aortic arch. 3. Hiatal hernia. 4. No main or segmental pulmonary emboli identified. Echo: Conclusions: - Normal left ventricular size and systolic function. There is mildly increased left ventricular wall thickness. The visually estimated ejection fraction is between 55-60%. - E/E prime ratio is between 8 and 15 consistent with indeterminate filling pressures. - Mildly increased right ventricular cavity size. There is normal right ventricular systolic function. - There is mild dilatation of the sinuses of Valsalva measuring 3.30 cm and mild dilatation of the ascending aorta measuring 3.20 cm. Findings Left Ventricle Normal left ventricular size and systolic function. There is mildly increased left ventricular wall thickness. The visually estimated ejection fraction is between 55-60%. There is no evidence of regional wall motion abnormalities. Abnormal diastolic function is noted. Spectral Doppler is indicative of an impaired relaxation filling pattern. E/E prime ratio is between 8 and 15 consistent with indeterminate filling pressures. Right Ventricle Mildly increased right ventricular cavity size. There is normal right ventricular systolic function. Atria The left atrium is normal in size. The right atrium is normal in size. Aortic Valve There is a normal trileaflet aortic valve. There is no aortic valve stenosis. There is no aortic valve regurgitation. Mitral Valve The mitral valve appears normal. There is no mitral valve regurgitation. There is no mitral valve stenosis. Pulmonic Valve The pulmonic valve is likely normal. Tricuspid Valve Normal tricuspid valve structure. There is no tricuspid valve regurgitation. Normal right atrial pressure. There is no evidence of pulmonary hypertension. Great Vessels There is mild dilatation of the sinuses of Valsalva measuring 3.30 cm and mild dilatation of the ascending aorta measuring 3.20 cm. Venous The inferior vena cava is normal in size and collapses greater than 50% with inspiration. Pericardium/Pleural There is no evidence of pericardial effusion. Prior Study Comparison Changes noted compared to prior study dated: 07/17/2024. Indeterminate filling pressures. Mild RV dilation, Mild aortic dilation. Discharge Plan Discharge Anticipated Discharge Date/Time: 05/27/25 08:09 Patient Disposition: Home, Self-Care Discharge Diagnosis: ild execerebation , possible mild diastolic chf. Referrals: Po,Nolberto Boykin MD [Primary Care Provider, Internal Medicine] - 1 Week Discharge Medications: New prednisone 50 mg tablet 50 mg PO DAILY Qty: 30 0RF omeprazole 20 mg Capsule,Delayed Release(Dr/Ec) 20 mg PO BID Qty: 180 0RF metoprolol succinate 25 mg Tablet Extended Release 24 Hr 25 mg PO DAILY Qty: 90 0RF Protocol: Hold for SBP/HR < HOLD for SBP < : 90 HOLD for HR < : 60 Continued ferrous sulfate 325 mg (65 mg iron) tablet 325 mg PO DAILY 90 Days Qty: 90 2RF ivabradine 5 mg tablet 5 mg PO BID Qty: 60 6RF Rx Instructions: must administer with a meal/food trazodone 50 mg tablet 50 mg PO BEDTIME PRN (Reason: insomnia) Qty: 90 3RF (DME) pen needle, diabetic [Comfort EZ Pen Morrison] 32 gauge x 5/16 needle See Rx Instructions .Route Qty: 100 4RF Rx Instructions: As directed injects once a day Mylanta Coat-Cool 1,200 mg-270 mg -80 mg/10 mL suspension 10 ml PO BID PRN (Reason: heartburn) 14 Days Qty: 355 0RF metronidazole 0.75 % cream 1 appl topical BEDTIME PRN (Reason: redness) (DME) [place]bulizers [facility] [place] See Rx Instructions .Route Qty: 1 0RF Rx Instructions: As directed (DME) compressor, for nebulizer Device See Rx Instructions .Route Qty: 1 0RF Rx Instructions: As directed prednisolone acetate 1 % drops,suspension 1 drp ophthalmic-Left TID doxycycline hyclate 20 mg tablet 20 mg PO BID sucralfate 100 mg/mL suspension 10 ml PO BID Qty: 600 0RF (DME) Oxygen Home Use Kit See Rx Instructions .Route Qty: 1 0RF Rx Instructions: As directed cholecalciferol (vitamin D3) 250 mcg (10,000 unit) tablet 250 mcg PO DAILY Qty: 30 5RF (DME) back brace Mis See Rx Instructions .Route Qty: 1 0RF Rx Instructions: As directed teriparatide [Forteo] 20 mcg/dose (560mcg/2.24mL) pen injector 20 mcg subcut DAILY Discontinued prednisone 2.5 mg tablet 7.5 mg PO DAILY 30 Days Qty: 90 3RF Discharge Orders: Discharge Order (Routine); Ordered 05/27/25 Ordered By: Margoth Aguayo Diet: Advance to usual diet Activity on Discharge: As tolerated Stand Alone Forms: Patient Portal Discharge page Print Language: [place] Care Plan Goals: complete prednisone 50 mg po qdx1 month. added ppi . added toprol 25 mg po qd lasix 20 mg po qd, CHF education given-if gains weight 2 lb or more in a week-will need outpatient Lasix dosing assessment with PCP. Consider Follow-up with cardiology outpatient follow up with pcp,pulm. Health Concerns: as above. Plan of Treatment: as above. Assessment: as above.
[2025-05-27] MEDS: prednisoLONE Acetate 1 % Oph Susp 5 ML DRPBTL 1 DROP EYE-LEFT ×2 (09:40→15:43)
[2025-05-27 09:41] VITALS: BP 143/85
[2025-05-27] MEDS: Ferrous Sulfate 324 MG TABLET.DR PO (09:41)
[2025-05-27] MEDS: Sucralfate Oral Suspension 1 GM/10 ML ORAL.SUSP PO ×3 (09:41→15:43)
[2025-05-27] MEDS: 0.9 % Sodium Chloride Flush 3 ML SYRINGE IVFLUSH ×2 (09:42→15:43)
[2025-05-27 10:29] LABS: Sodium 143 mmol/L (135-145)
--- NOTE | 2025-05-27 11:17 | MHC.CM.PN ---
Patient has been medically cleared for dc to home today, self care.
--- NOTE | 2025-05-27 11:24 | PC.RT ---
Home O2 eval not completed. Pt is currently established with [facility] and her current requirements, here at the hospital, reflect the previously prescribed prescription. MD celestin
[2025-05-27 11:32] VITALS: BP 143/85; PULSE 83
[2025-05-27] MEDS: Metoprolol Succinate ER 25 MG TAB.ER.24H PO (11:32)
[2025-05-27 12:00] VITALS: BP 132/78; PULSE 86; RESP 18; TEMP 36.4; O2SAT 95
--- NOTE | 2025-05-27 12:35 | P.PNPL_ITS ---
Subjective Subjective Date of Service: 05/27/25 Interval history: Dyspnea and oxygen requirements improved to baseline. Objective Data Labs 05/25/25 09:34 05/27/25 09:55 Labs: Laboratory Results - last 24 hr 05/27/25 09:55 Hold Purple Top SEE NOTE Sodium 143 Microbiology Microbiology Results: Microbiology 05/21/25 18:23 Blood - Venous Blood Culture - Final No growth after 5 days. 05/21/25 18:23 Blood - Venous Blood Culture - Final No growth after 5 days. Physical Exam 2 Vital Signs: Vital Signs: Last Vital Signs Temp 97.5 F 05/27/25 12:00 Pulse 86 05/27/25 12:00 Resp 18 05/27/25 12:00 BP 132/78 05/27/25 12:00 Pulse Ox 95 05/27/25 12:00 O2 Del Method Nasal Cannula 05/27/25 12:00 O2 Flow Rate 2 05/27/25 12:00 Oxygen Flow Rate 3 05/21/25 18:01 BMI result Body Mass Index 26.0 Const: General: no acute distress, alert and awake Eyes: Sclerae: sclerae normal EOM: EOMs intact bilaterally Neck: Neck: Yes no lymphadenopathy, Yes trachea midline and Yes supple Resp: Effort & Inspection: normal respiratory effort and no respiratory distress Auscultation: clear to auscultation bilaterally Cardio: Rate: regular rate Rhythm: regular rhythm Heart sounds: no gallops, no murmurs and no rubs GI: Palpation (GI): Soft to palpation and Other GI palpation findings present ( Nontender) Auscultation: normal bowel sounds Extrem: General: Yes no pedal edema, No clubbing and No cyanosis Procedures Date of Service Date of Service: 05/27/25 Assessment and Plan Assessment and plan (1) ILD (interstitial lung disease): Status: Acute (2) Supplemental oxygen dependent: Status: Acute Plan Impression: 49-year-old lady with underlying ILD hospitalized with acute on chronic hypoxia secondary to ILD exacerbation, now essentially improved to baseline with systemic glucocorticoids therapy. Recommendations: Continue prednisone 50 mg daily until seen in pulmonary office within 2 weeks after discharge. Will arrange for pulmonary follow-up. Time Spent With Patient Time: Total time managing care of this patient today ____ minutes. Progress Note: Quality Stroke Does the patient have a stroke diagnosis?: No
[2025-05-27 16:00] VITALS: BP 126/77; PULSE 93; RESP 18; TEMP 36.8; O2SAT 93
== END 2025-05-27 17:28 | disposition home or self-care (01) | DRG 142 ==
LOC: HO.ED 22:52 → HO.EDOVER 22:54 → HO.S3 23:15 → HO.IMC 05-22 13:29
PROVIDERS: Student in an Organized Health Care Education/Training Program; Admitting Provider Internal Medicine; Emergency Provider Emergency Medicine; PCP Internal Medicine; Visit Provider Internal Medicine
DX: J84.9 Interstitial pulmonary disease, unspecified (principal); J96.21 Acute and chronic respiratory failure with hypoxia; Z99.81 Dependence on supplemental oxygen; Z20.822 Contact with and (suspected) exposure to COVID-19; L71.9 Rosacea, unspecified; K20.90 Esophagitis, unspecified without bleeding; M81.0 Age-related osteoporosis without current pathological fracture; K50.90 Crohn's disease, unspecified, without complications; Z79.899 Other long term (current) drug therapy
CPT/HCPCS: 36415; 71045; 71275; 80048; 80076; 81001; 82310; 82803; 83605; 83735; 83880; 84295; 84484; 85014; 85018; 85025; 85027; 87040; 87633; 87637; 93005; 93306; 94799; 99285; J0456; J0696; J1650; J1938; J2270; J2919

== ENCOUNTER → 2025-05-21 18:09 | Outpatient (BNV) | payer OTHER, SELFPAY | PROVIDERS: Admitting Provider Internal Medicine; Emergency Provider Emergency Medicine; PCP Internal Medicine; Visit Provider Internal Medicine Cardiovascular Disease | DX: I51.7 Cardiomegaly (principal) | CPT/HCPCS: 93010 ==

== ENCOUNTER → 2025-05-21 18:09 | Outpatient (BNV) | payer OTHER, SELFPAY | PROVIDERS: Emergency Provider Emergency Medicine; PCP Internal Medicine; Visit Provider Radiology Diagnostic Radiology | DX: J81.1 Chronic pulmonary edema (principal); R91.8 Other nonspecific abnormal finding of lung field; K44.9 Diaphragmatic hernia without obstruction or gangrene; R06.02 Shortness of breath | CPT/HCPCS: 71045; 71275 ==

== ENCOUNTER 2025-05-21 22:48 | Outpatient (BNV) | payer OTHER, SELFPAY | END 2025-05-25 07:00 | PROVIDERS: Admitting Provider Internal Medicine; Emergency Provider Emergency Medicine; PCP Internal Medicine; Visit Provider Internal Medicine Cardiovascular Disease | DX: I77.810 Thoracic aortic ectasia (principal) | CPT/HCPCS: 93306 ==

== ENCOUNTER → 2025-05-21 22:48 | Outpatient (BNV) | payer OTHER, SELFPAY | PROVIDERS: Admitting Provider Internal Medicine; Emergency Provider Emergency Medicine; PCP Internal Medicine; Visit Provider Internal Medicine | DX: J84.9 Interstitial pulmonary disease, unspecified (principal) | CPT/HCPCS: 99232 ==

== ENCOUNTER → 2025-05-21 22:48 | Outpatient (BNV) | payer OTHER, SELFPAY | PROVIDERS: Admitting Provider Internal Medicine; Emergency Provider Emergency Medicine; PCP Internal Medicine; Visit Provider Internal Medicine Pulmonary Disease | DX: J84.9 Interstitial pulmonary disease, unspecified (principal); Z99.81 Dependence on supplemental oxygen | CPT/HCPCS: 99232 ==

== ENCOUNTER 2025-06-12 10:17 | Outpatient (AMB) | payer OTHER, SELFPAY ==
[2025-06-12 10:27] VITALS: BP 118/77; PULSE 124; O2SAT 94
--- NOTE | 2025-06-12 10:27 | A.OFFVIS_ITS ---
Vital Signs 06/12/25 10:27 Weight 136 lb BP 118/77 Blood Pressure Location Lt brachial Position Sitting Pulse 124 H Pulse Source Pulse Oximeter Pulse Oximetry (%) 94 Oxygen Delivery Method Nasal Cannula Oxygen Flow Rate 3 Intake Visit Reasons: ILD exacerbation Financial Institution Vice President Required: Yes Financial Institution Vice President Name: Ava Styles Alan Information Interpreted: non-clinical & clinical Allergies No Known Allergies (No Known Allergies*) Allergy (Verified 06/12/25 10:34) HPI HPI ILD exacerbation: Details: 49-year-old lady, nonsmoker, now followed for interstitial lung disease with another recent hospitalization at the end of April of 2025 requiring incre asing her prednisone dose to 50 mg daily. Now symptoms at baseline and oxygen requirements back to 2-3 L. [facility] Medical History Crohn's disease of colon ILD (interstitial lung disease) Supplemental oxygen dependent Pneumomediastinum Breast cancer screening by mammogram Overweight (BMI 25.0-29.9) Abnormal CT scan, chest Hemorrhoids with complication Colon cancer screening Generalized abdominal pain Visual impairment Duodenal ulcer GERD (gastroesophageal reflux disease) Obesity (BMI 30-39.9) Menometrorrhagia Seizure in childhood Sclerosing mesenteritis GERD without esophagitis Surgical History History of esophagogastroduodenoscopy (EGD) Hx of colonoscopy Hx of cholecystectomy (~2005) Hx of hysterectomy Hx of section Family History Father Myocardial infarct CVA (cerebral vascular accident) Mother No problems noted. Daughter No problems noted. Son No problems noted. Brother Substance abuse Social History Household Members: None Housing: House Do you presently have visiting nurse or other home services: No Alcohol intake: never Patient Tobacco Use Status: Never used Tobacco Tobacco use type: Cigarette e-Cigarette/Vaping Use: Never Used Second Hand Smoke Exposure: No service: No Current occupational status: employed and unemployed Current occupation: [employer] Cognitive needs: No Hearing needs: No Vision needs: No Review of Systems Const Denies daytime sleepiness, Denies excessive sweating, Denies fatigue, Denies fever(s), Denies lethargy, Denies malaise, Denies night sweats, Denies snoring and Denies weight loss Eyes Denies blurry vision and Denies itchy eyes ENT Denies nasal congestion, Denies post nasal drip, Denies sinus pain, Denies sinus pressure and Denies other ( Thrush) Card Denies chest pain, Denies pedal edema, Denies dyspnea, Denies orthopnea and Denies paroxysmal nocturnal dyspnea Resp Denies cough, Denies hemoptysis, Denies excessive phlegm production, Denies dyspnea, Denies snoring and Denies wheezing GI Denies abdominal pain and Denies heartburn Musc Denies myalgias, Denies arthralgias and Denies joint swelling Skin/Breast Denies rash Neuro Denies memory loss and Denies seizure-like activity Psych Denies abnormal sleep pattern, Denies anxiety and Denies memory loss Endo Denies excessive sweating, Denies fatigue and Denies heat intolerance Remy/Lymph Denies easy bruising Aller/Immun Denies itchy eyes, Denies seasonal rhinorrhea and Denies wheezing Physical Exam Vital Signs: Last Vital Signs Pulse 124 H 06/12/25 10:27 BP 118/77 06/12/25 10:27 Pulse Ox 94 06/12/25 10:27 Oxygen Delivery Method Nasal Cannula 06/12/25 10:27 Oxygen Flow Rate 3 06/12/25 10:27 Const General: no acute distress and alert Nutritional Appearance: not obese Orientation/consciousness: Other orientation findings ( oriented) HEENT Head: Yes atraumatic Eyes General: appearance normal, both eyes and all related structures Sclerae: sclerae normal EOM: EOMs intact bilaterally Neck Neck: Yes supple Lymphatic: no lymphadenopathy noted Resp Effort & Inspection: normal respiratory effort and no use of accessory muscles Auscultation: clear to auscultation bilaterally Cardio Rate: regular rate Rhythm: regular rhythm Heart sounds: no gallops, no murmurs and no rubs Skin General skin exam: other ( warm) Extrem General: No clubbing, No cyanosis and No edema Assessment & Plan Assessment & Plan (1) ILD (interstitial lung disease): Code(s): J84.9 - Interstitial pulmonary disease, unspecified Category: Medical Plan: With recent exacerbation requiring increasing her prednisone dose to 50. Will start tapering down by 10 mg every week to 10 mg per day goal. (2) Supplemental oxygen dependent: Code(s): Z99.81 - Dependence on supplemental oxygen Category: Medical Plan: Continue supplemental oxygen to maintain O2 saturation above 88%. Medications: New prednisone Take 4 pills daily for 7 days, then Take 3 pills daily for 7 days, then Take 2 pills daily for 7 days, then Take 1 pill daily indefinitely. 10 mg PO DIRECTED 60 tabs 0RF Discontinued prednisone Discontinued Reason: Doctor's Order 50 mg PO DAILY 30 tabs 0RF Coding Level of Care Code Est Pt Level 4 (82021) Diagnoses ILD (interstitial lung disease) J84.9 Supplemental oxygen dependent Z99.81
== END 2025-06-12 10:52 | disposition home or self-care (01) ==
LOC: HO.HPS 10:18
PROVIDERS: PCP Internal Medicine; Visit Provider Internal Medicine Pulmonary Disease
DX: J84.9 Interstitial pulmonary disease, unspecified (principal); Z99.81 Dependence on supplemental oxygen
CPT/HCPCS: 99214

== ENCOUNTER → 2025-06-12 10:17 | Outpatient (BNVA) | payer OTHER, SELFPAY | PROVIDERS: PCP Internal Medicine; Visit Provider Internal Medicine Pulmonary Disease | DX: J84.9 Interstitial pulmonary disease, unspecified (principal); J96.21 Acute and chronic respiratory failure with hypoxia; I50.30 Unspecified diastolic (congestive) heart failure; Z51.89 Encounter for other specified aftercare; Z79.899 Other long term (current) drug therapy; F17.210 Nicotine dependence, cigarettes, uncomplicated | CPT/HCPCS: 99212 ==

== ENCOUNTER 2025-06-12 13:58 | Outpatient (AMB) | payer OTHER, SELFPAY ==
--- NOTE | 2025-06-12 14:09 | MHC.OFFVIS ---
Vital Signs 06/12/25 14:10 Height 5 ft 2 in BMI Reason not done Patient refused/unable BP 118/62 Blood Pressure Location Lt brachial Position Sitting Pulse 106 H Pulse Source Pulse Oximeter Intake Visit Reasons: 2 [place] [facility] [place] Weatherization Specialist Required: Yes Weatherization Specialist Name: RYAN [id number] Allergies No Known Allergies (No Known Allergies*) Allergy (Verified 06/12/25 10:34) Medication List - Last Reconciled 06/12/25 by Yennifer Lake NP-C back brace As directed calcium carb-mag hydrox-simeth 1,200 mg-270 mg -80 mg/10 mL (Mylanta Coat-Cool) 10 mL PO BID PRN 14 days cholecalciferol (vitamin D3) 250 mcg PO DAILY compressor, for nebulizer As directed ferrous sulfate 325 mg PO DAILY 90 days ivabradine 5 mg PO BID metronidazole 0.75% 1 appl topical BEDTIME PRN nebulizers As directed omeprazole 20 mg PO BID Oxygen Home Use As directed pen needle, diabetic (Comfort EZ Pen [place]) As directed injects once a day prednisolone acetate 1% 1 drp ophthalmic-Left TID prednisone 10 mg PO DIRECTED sucralfate 10 mL PO BID teriparatide (Forteo) 20 mcg subcut DAILY trazodone 50 mg PO BEDTIME PRN HPI HPI 2 week f/[place] [facility] [place]: Details: The patient is a 49 year old female presenting for follow-up after a recent hospitalization for an interstitial lung disease exacerbation. During her admission, she was found to have evidence of mild diastolic heart failure and was treated with IV Lasix for fluid overload. She was started on Metoprolol to help with heart rate control and she did not take it due to concerns over low BP readings. Her breathing has been stable since her last discharge. Her past medical history is significant for oxygen-dependent interstitial lung disease with fibrosis, chronic hypoxic respiratory failure, lumbar disc disease, and sinus tachycardia. Her current cardiac medications include ivabradine 5 mg twice a day for heart rate control. She reports that the ivabradine controls her palpitations, but she did not take her dose yet today, resulting in an elevated heart rate. Her mother is present. [facility] Medical History Crohn's disease of colon ILD (interstitial lung disease) Supplemental oxygen dependent Pneumomediastinum Breast cancer screening by mammogram Overweight (BMI 25.0-29.9) Abnormal CT scan, chest Hemorrhoids with complication Colon cancer screening Generalized abdominal pain Visual impairment Duodenal ulcer GERD (gastroesophageal reflux disease) Obesity (BMI 30-39.9) Menometrorrhagia Seizure in childhood Sclerosing mesenteritis GERD without esophagitis Surgical History History of esophagogastroduodenoscopy (EGD) Hx of colonoscopy Hx of cholecystectomy (~2005) Hx of hysterectomy Hx of section Family History Father Myocardial infarct CVA (cerebral vascular accident) Mother No problems noted. Daughter No problems noted. Son No problems noted. Brother Substance abuse Social History Household Members: None Housing: House Do you presently have visiting nurse or other home services: No Alcohol intake: never Patient Tobacco Use Status: Never used Tobacco Tobacco use type: Cigarette e-Cigarette/Vaping Use: Never Used Second Hand Smoke Exposure: No service: No Current occupational status: employed and unemployed Current occupation: [employer] Cognitive needs: No Hearing needs: No Vision needs: No Review of Systems Const All systems reviewed & are unremarkable except as noted in HPI and below Denies weakness ENT Denies dizziness Card Denies no additional complaints, Denies chest pain, Denies chest pain with activity, Denies syncope, Reports rapid heart rate, Denies pedal edema, Denies edema, Denies leg edema, Denies lightheadedness, Denies palpitations, Reports dyspnea, Reports dyspnea on exertion and Reports orthopnea Resp Denies cough, Reports dyspnea and Reports dyspnea on exertion GI Denies hematochezia and Denies change in stool character Musc Denies abnormal gait, Denies muscle cramps, Reports muscle weakness, Denies numbness, Denies radiating pain into limb and Denies tingling Neuro Denies abnormal gait, Denies dizziness, Denies syncope, Denies numbness, Denies tingling and Denies weakness Endo Denies palpitations Physical Exam Vital Signs: Last Vital Signs Pulse 106 H 06/12/25 14:10 BP 118/62 06/12/25 14:10 Const General: cooperative, comfortable and no acute distress Orientation/consciousness: patient oriented x3 Neck Neck: Yes normal visual inspection Resp Other: unlabored, wearing O2, rales noted in each base Auscultation: no rhonchi and no wheezes Cardio Rate: tachycardic Rhythm: regular rhythm Heart sounds: S1 normal heart sound present, S2 normal heart sound present, no gallops, no murmurs and no rubs Neuro General: patient oriented x3 Extrem General: Yes normal to inspection, No no pedal edema and No calf tenderness Psych Appearance: grossly normal Mental Status: mental status grossly normal Speech and movement: Normal speech and movement present Assessment & Plan Assessment & Plan (1) Sinus tachycardia: Code(s): R00.0 - Tachycardia, unspecified Category: Medical Plan: History of sinus tachycardia that is primarily controlled with Ivabradine 5 mg b.i.d.. Recent echocardiogram showing EF 55-60%, no regional wall motion abnormalities. She denies issues with heart palpitations. Pulse mildly elevated on exam but she states she had not taken her medication yet today. Reviewed avoidance of caffeinated beverages. (2) Heart failure with preserved ejection fraction: Code(s): I50.30 - Unspecified diastolic (congestive) heart failure Category: Medical Plan: During last hospital admission she did have evidence of fluid overloaded treated with IV Lasix. Her echocardiogram does show normal EF and mild increase in the RV cavity size normal RV systolic function, filling pressures indeterminate. She is no longer on diuretics. Informed her that she may be at increased risk of holding on to fluid. Discussed low-salt diet and monitoring for heart failure symptoms. Call if any edema or increased shortness of breath. (3) Hospital discharge follow-up: Code(s): Z51.89 - Encounter for other specified aftercare Category: Medical Plan: Hospital notes reviewed (4) ILD (interstitial lung disease): Code(s): J84.9 - Interstitial pulmonary disease, unspecified Category: Medical Plan: Chronic interstitial lung disease and hypoxic respiratory failure. Follows with pulmonology. O2 dependent. (5) Acute on chronic hypoxic respiratory failure: Code(s): J96.21 - Acute and chronic respiratory failure with hypoxia Category: Medical Plan: As above Plan I explained to the patient that her heart rate was elevated today likely because she had not yet taken her ivabradine. We discussed that the metoprolol and I confirmed that she never started taking it and does not want to do so, thus I would remove it from her medication list. I advised her to continue the ivabradine twice daily, as it controls her heart rate without lowering her blood pressure. Based on my physical exam, which showed no leg swelling, I reassured her that I do not believe she has excess fluid buildup at this time. I explained that the crackles in her lungs are likely chronic due to her fibrosis. I recommended she keep her scheduled appointment with Dr. Finley in September and to contact us sooner if she develops worsening symptoms like leg swelling. Patient Instructions: - Continue to take your medication, ivabradine, two times a day as prescribed to help control your heart rate.t. - Please let us know if you experience any new or worsening swelling in your legs. - Keep your scheduled follow-up appointment with Dr. Finley in September. - Contact our office sooner if you have any questions or if your symptoms worsen. Patient was informed and verbally consented to the use of an ambient scribe for clinic note documentation during this visit. Visit time spent on chart review, interview, assessment, orders, documentation. Coding Level of Care Code Est Pt Level 4 (76841) Add On Problem Visit Only Diagnoses Sinus tachycardia R00.0 Heart failure with preserved ejection fraction I50.30 Hospital discharge follow-up Z51.89 ILD (interstitial lung disease) J84.9 Acute on chronic hypoxic respiratory failure J96.21 Time Spent (min) 28
[2025-06-12 14:10] VITALS: BP 118/62; PULSE 106
== END 2025-06-12 14:52 | disposition home or self-care (01) ==
LOC: HO.HCS 13:59
PROVIDERS: PCP Internal Medicine; Visit Provider Nurse Practitioner Family
DX: R00.0 Tachycardia, unspecified (principal); I50.30 Unspecified diastolic (congestive) heart failure; Z51.89 Encounter for other specified aftercare; J84.9 Interstitial pulmonary disease, unspecified; J96.21 Acute and chronic respiratory failure with hypoxia
CPT/HCPCS: 99214

== ENCOUNTER 2025-06-13 14:26 | Outpatient (AMB) | payer OTHER, SELFPAY ==
--- NOTE | 2025-06-13 14:51 | A.OFFPC_ITS ---
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: Yes Molded Goods Embossing Press Operator Language: Malagasy Information Interpreted: non-clinical & clinical Custodian: Present Accompanied by: Mother Allergies No Known Allergies (No Known Allergies*) Allergy (Verified 06/13/25 15:06) Medication List - Last Reconciled 06/13/25 by Sheri Jose PA-C back brace As directed calcium carb-mag hydrox-simeth 1,200 mg-270 mg -80 mg/10 mL (Mylanta Coat-Cool) 10 mL PO BID PRN 14 days cholecalciferol (vitamin D3) 250 mcg PO DAILY compressor, for nebulizer As directed ferrous sulfate 325 mg PO DAILY 90 days ivabradine 5 mg PO BID metronidazole 0.75% 1 appl topical BEDTIME PRN nebulizers As directed omeprazole 20 mg PO BID Oxygen Home Use As directed pen needle, diabetic (Comfort EZ Pen [place]) As directed injects once a day prednisolone acetate 1% 1 drp ophthalmic-Left TID prednisone 10 mg PO DIRECTED sucralfate 10 mL PO BID teriparatide (Forteo) 20 mcg subcut DAILY trazodone 50 mg PO BEDTIME PRN Tobacco use date assessed: 06/13/25 Dental Screening Dental Screen Date: 04/23/25 [place] [facility] HPI Details 49-year-old female with past medical his tory of interstitial lung disease chronically on 2 L of home oxygen, Crohn's disease, GERD, generalized anxiety disorder last seen 03/2025 coming in for HDF. In review of the notes, patient was seen in [facility] 05/21/2025 for SOB started on IV steroids, diuretics and abx with improvement. Continued on prednisone 50mg for one month and given lasix. She did have pulmonary edema and consideration was made for outpatient cardiology. Seen by pulm 06/12/2025 prednisone was increased and plan for taper. Seen by cardiology discussed low salt diet and continued on lasix and daily weights. welcome center agent Shane [id number] was used for the duration of this visit. Presenting for a follow-up visit after being hospitalized last month for shortness of breath. During her hospitalization, she was diagnosed with congestive heart failure with fluid in the lungs and around the heart, for which she was treated with steroids, antibiotics, and diuretics. Her breathing improved before she was discharged home. The patient reports her breathing has been stable since discharge and she has lost a couple of pounds. She denies any cough or fevers. Her primary complaint is a lack of energy and feeling tired all the time, which she attributes to being less active. [facility] Medical History Crohn's disease of colon ILD (interstitial lung disease) Supplemental oxygen dependent Pneumomediastinum Breast cancer screening by mammogram Overweight (BMI 25.0-29.9) Abnormal CT scan, chest Hemorrhoids with complication Colon cancer screening Generalized abdominal pain Visual impairment Duodenal ulcer GERD (gastroesophageal reflux disease) Obesity (BMI 30-39.9) Menometrorrhagia Seizure in childhood Sclerosing mesenteritis GERD without esophagitis Surgical History History of esophagogastroduodenoscopy (EGD) Hx of colonoscopy Hx of cholecystectomy (~2005) Hx of hysterectomy Hx of section Family History Father Myocardial infarct CVA (cerebral vascular accident) Mother No problems noted. Daughter No problems noted. Son No problems noted. Brother Substance abuse Social History Household Members: None Housing: House Do you presently have visiting nurse or other home services: No Alcohol intake: never Patient Tobacco Use Status: Never used Tobacco Tobacco use type: Cigarette e-Cigarette/Vaping Use: Never Used Second Hand Smoke Exposure: No service: No Current occupational status: employed and unemployed Current occupation: [employer] Cognitive needs: Yes (wheelchair) Hearing needs: No Vision needs: No Questionnaire Thrive Questionnaire Date Thrive assessed: 09/06/24 I am a: Patient What is your living situation today?: I have a steady place to live Within the past 12 months, did the food you bought not last and you didn't have the money to get more?: Sometimes True Within the past 12 months, did you worry whether your food would run out before you got money to buy more?: Sometimes True Do you have trouble paying for medicines?: Yes Do you have trouble getting transportation to medical appointments?: No Do you have trouble paying your heating and electricity bill?: Yes Do you have trouble taking care of your child, family member or friend?: No Do you have trouble with day-to-day activities such as bathing, preparing meals, shopping, managing finances, etc.?: Yes Are you currently unemployed and looking for a job?: Yes Are you interested in more education?: Yes Currently or been in a relationship where the following occur: No concerns reported THRIVE Score: 3 YSABEL-7 AMB Questionnaire YSABEL-7 Date YSABEL - 7 assessed: 12/18/24 Source: Developed by Drs. Jerod Grover, Heather Bennett, Georgi Contreras and colleagues, with an educational cristal from [employer]. Review of Systems Const Denies body aches, Denies chills, Denies fever(s), Denies headache(s) and Denies poor appetite Eyes Reports no additional complaints ENT Denies dysphagia, Denies dizziness, Denies headache(s) and Denies odynophagia Card Denies chest pain, Denies edema, Denies lightheadedness and Reports dyspnea Resp Denies cough and Reports dyspnea GI Denies abdominal pain, Denies dysphagia, Reports dyspepsia, Reports heartburn, Denies nausea, Denies odynophagia and Denies vomiting Reports no additional complaints Musc Reports no additional complaints and Denies abnormal gait Skin/Breast Reports system reviewed and no additional complaints, except as documented Neuro Denies abnormal gait, Denies dizziness and Denies headache(s) Psych Reports no additional complaints Physical exam (Primary Care) Vital Signs: Last Vital Signs Temp 97.3 F 06/13/25 14:52 Pulse 78 06/13/25 14:52 BP 136/86 06/13/25 15:20 Pulse Ox 94 06/13/25 14:52 Oxygen Delivery Method Nasal Cannula 06/13/25 14:52 BMI result Body Mass Index 25.2 Tobacco/Smoking Status: Tobacco use Status Tobacco use date assessed 06/13/25 06/13/25 14:58 Patient Tobacco Use Status Never used Tobacco 06/13/25 14:58 Tobacco use type Cigarette 06/13/25 14:58 e-Cigarette/Vaping Use Never Used 06/13/25 14:58 Thrive Assessment: Date of Thrive Assessment Date Thrive assessed 09/06/24 06/13/25 14:58 Currently or been in a relationship where the following occur: No concerns reported Const General: cooperative, healthy appearing, comfortable and no acute distress Orientation/consciousness: patient oriented x3 HENMT Head: Yes normocephalic Ears: hearing grossly normal bilaterally General nose exam: Normal external nose present Eyes General: appearance normal, both eyes and all related structures Conjunctivae: conjunctivae normal Neck Neck: Yes full ROM and Yes no lymphadenopathy Resp Effort & Inspection: normal respiratory effort Auscultation: clear to auscultation bilaterally, crackles diffuse, no rales, no rhonchi and no wheezes Cardio Rate: regular rate Rhythm: regular rhythm Skin General skin exam: no rashes or lesions noted Neuro General: patient oriented x3 Gait exam (Neuro): Normal gait present Extrem General: Yes normal to inspection, Yes full ROM and No edema Psych Affect: normal affect Attitude: cooperative Insight: Good insight present (Psych) Judgement: Good judgement present (Psych) Coding Level of Care Code Est Pt Level 3 (99105) Diagnoses Heart failure with preserved ejection fraction I50.30 ILD (interstitial lung disease) J84.9 Fatigue R53.83 Assessment & Plan Assessment & Plan (1) Heart failure with preserved ejection fraction: Code(s): I50.30 - Unspecified diastolic (congestive) heart failure Category: Medical Plan: The patient is clinically stable following her recent hospitalization for an exacerbation of congestive heart failure. Physical exam shows no evidence of fluid overload, and her heart sounds are good. The plan is to continue follow-up with cardiology and pulmonology. She will continue taking Lasix, adhere to a low-salt diet, and monitor her weight daily to watch for fluid retention. (2) ILD (interstitial lung disease): Code(s): J84.9 - Interstitial pulmonary disease, unspecified Category: Medical Plan: Per pulmonology's recommendation, the patient will continue taking prednisone for about a month. 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 (3) Fatigue: Code(s): R53.83 - Other fatigue Category: Medical Plan: The patient complains of a significant lack of energy, which may be multifactorial, stemming from her recent illness, reduced activity levels, and as a side effect of prednisone. Reassurance was provided that her energy levels should gradually improve with recovery and as she becomes more active. The patient was counseled on non-pharmacological interventions, including practicing good sleep hygiene by maintaining a strict sleep schedule and avoiding daytime naps. She was also advised to use caffeine in moderation to avoid potential cardiac side effects. Plan This note was constructed using voice recognition software. While every effort has been made to ensure accuracy and air analysis engineering technician, still areas may have been included sometimes these areas may affect the content or meeting of the given symptoms. Total time spent caring for the patient today was 20 minutes. This includes time spent before the visit reviewing the chart, time spent during the visit, and time spent after the visit and documentation. Patient was informed and verbally consented to the use of an ambient scribe for clinic note documentation during this visit.
[2025-06-13 14:52] VITALS: BP 142/72; PULSE 78; TEMP 36.3; O2SAT 94; BMI 25.2
[2025-06-13 15:20] VITALS: BP 136/86
== END 2025-06-13 15:38 | disposition home or self-care (01) ==
LOC: HO.HMCH 14:27
PROVIDERS: PCP Internal Medicine
DX: I50.30 Unspecified diastolic (congestive) heart failure (principal); J84.9 Interstitial pulmonary disease, unspecified; R53.83 Other fatigue

== ENCOUNTER → 2025-06-13 14:26 | Outpatient (BNVA) | payer OTHER, SELFPAY | PROVIDERS: PCP Internal Medicine | DX: I50.30 Unspecified diastolic (congestive) heart failure (principal); J84.9 Interstitial pulmonary disease, unspecified; R53.83 Other fatigue; Z99.81 Dependence on supplemental oxygen | CPT/HCPCS: 99212 ==